=== PATIENT | female | born 2000 | race Caucasian/White ===

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

== ENCOUNTER 2022-01-28 23:10 | Emergency (ER) | payer MEDICAID, SELFPAY ==
[2022-01-28 23:12] VITALS: BP 124/85; PULSE 76; RESP 18; TEMP 36.6; O2SAT 98; BMI 32.3
--- NOTE | 2022-01-28 23:43 | EX.ED.DYSGE1 ---
HPI History of Present Illness Chief Complaint: Other, Pain/Inj Narrative Narrative: Patient is a 21-year-old female who reports a history of bilateral chronic knee pain as well as low back pain. 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 She denies any recent trauma or excessive activity but states that after doing her job she noticed some increased pain to her knees and back. She denies any loss of bowel or bladder control or IV drug use. She denies any dysuria hematuria or chance for . She states that she feels like going to work has made the pain worse and secondary to this presents for evaluation [facility] Medical History no medical history Home Medications venlafaxine 150 mg capsule,extended release 24 hr 150 mg PO DAILY 06/09/21 [History Last Taken Unknown] Allergy/AdvReac Type Severity Reaction Status Date / Time No Known Allergies Allergy Verified 01/28/22 23:12 Surgical History no surgical history Social History Smoking Status: Unknown if ever smoked ROS [facility] ED Constitutional Constitutional ED: Denies chills or fever(s) ENT ENT ED: Denies sore throat Cardiovascular Cardiovascular: Denies chest pain Respiratory/Chest Respiratory/Chest: Denies cough or dyspnea Gastrointestinal Gastrointestinal: Denies abdominal pain, diarrhea, nausea or vomiting Genitourinary Genitourinary ED: Denies dysuria Musculoskeletal Musculoskeletal: Reports arthralgias and back pain; Denies myalgias Integumentary Denies rash Neurologic Neurologic: Denies headache(s), paresthesias or weakness Hematologic/Lymphatic Hematologic/Lymphatic: Denies easy bleeding or easy bruising EXAM Physical Exam Const Vital Signs: 01/28/22 23:12 01/28/22 23:18 Temperature 97.8 F Temperature Source Temporal Pulse Rate 76 Respiratory Rate 18 Respiratory Effort Normal Respiratory Pattern Normal Blood Pressure 124/85 H Blood Pressure Mean 98 Pulse Ox 98 Oxygen Delivery Method Room Air Positive well nourished and well developed General Appearance ED: well developed Eyes PERRL and EOMs intact bilaterally Neck supple Resp normal respiratory effort and clear to auscultation bilaterally Cardio regular rate and regular rhythm Extremity Extremity Narrative: No bony deformity or step-off of the thoracic or lumbar spine no midline pain on palpation. No saddle anesthesia. Negative straight leg raise. No clonus or Babinski. Patellar reflexes are plus 2 out of 4 bilaterally Bilateral lower extremities are neurovascularly intact. There are no soft tissue changes such as erythema noted no joint effusion or bony abnormality. There is mild pain on palpation over top the medial aspect of both knees with increased pain with valgus stressing. However there is no ligamentous laxity and patellar tendon is normal. Neuro oriented x3, CN's II-XII intact bilaterally and no sensory deficits noted Sensorium / Orientation: alert Psych mental status grossly normal Skin no rashes or lesions noted MDM MDM MDM Narrative Medical decision making narrative: Patient presented to the ER with stable vitals she had no risk factors for cauda equina or epidural abscess and physical exam suggest there is a grade 1 strain of the MCL bilaterally. However there are no signs to suggest septic joint or DVT and therefore do not feel there is need for imaging or laboratory studies. Patient was given a Toradol shot to help reduce pain and was advised to conduct physical therapy exercises to strengthen the surrounding muscles to help prevent further recurrences of her pain. But at this time as there is no signs of infection or bony abnormality or signs/risk factors concerning for cauda equina epidural abscess she is otherwise safe for discharge Discharge Plan Triage Chief Complaint: Other, Pain/Inj ED Provider: Reece Akers Dx/Rx/DC Orders Clinical Impression: Strain of knee, bilateral, Chronic low back pain Instructions: Relieving Back Pain, Self-Care for Strains and Sprains Prescriptions: No Action venlafaxine 150 mg capsule,extended release 24hr 150 mg PO DAILY Label Comments: take 1 capsule by mouth once daily Stand Alone Forms: ED Work / School Excuse Primary Care Provider: Guero Tyler Referrals: Guero Tyler MD [Primary Care Provider] - Disposition Disposition: Home, Self Care
[2022-01-29] MEDS: Ketorolac 30 MG/ML Syringe IM (00:01)
[2022-01-29 00:21] VITALS: BP 113/71; PULSE 81; RESP 15; O2SAT 99
== END 2022-01-29 00:22 | disposition home or self-care (01) ==
PROVIDERS: Emergency Provider Emergency Medicine; PCP Family Medicine; Visit Provider Emergency Medicine
DX: S83.411A Sprain of medial collateral ligament of right knee, initial encounter (principal); S83.412A Sprain of medial collateral ligament of left knee, initial encounter; X58.XXXA Exposure to other specified factors, initial encounter; M54.50 Low back pain, unspecified; G89.29 Other chronic pain
CPT/HCPCS: 96372; 99283

== ENCOUNTER 2022-05-19 06:14 | Emergency (ER) | payer MEDICAID, SELFPAY ==
[2022-05-19 06:14] VITALS: PULSE 104; RESP 18; TEMP 35.7; O2SAT 99; BMI 32.5
[2022-05-19 06:17] VITALS: BP 109/80; PULSE 104; RESP 18; O2SAT 100
[2022-05-19 06:33] LABS: Absolute Lymphocyte Count 1.96 X10^3/uL (0.83-4.51); Basophil# 0.06 X10^3/uL; Basophil% 0.3 % (0-1); Eosinophil# 0.02 X10^3/uL; Eosinophils% 0.1 % (0-5); Hematocrit 48.1 % (37-47); Lymphocyte # 1.96 X10^3/ul (0.83-4.51); Lymphocyte % 10.8 % (19-41); Mean Corp Hgb Conc 33.3 g/dL (32-36); Mean Corpuscular Hgb 28.5 pg (27.0-32.0); Mean Corpuscular Volume 85.7 fL (81-99); Mean Platelet Vol. 9.5 fl (6.2-12.0); Monocyte# 0.97 X10^3/uL; Monocyte% 5.3 % (0-10); NRBC Flagged by Analyzer 0 % (0-5); Neutrophil % 82.7 % (47-70); Platelet Count 412 K/mm3 (150-450); RBC Distribution Width CV 12.6 % (11.6-14.6); RBC Distribution Width SD 38.8 fl (35.1-43.9); Red Blood Count 5.61 M/mm3 (4.2-5.4); White Blood Count 18.2 K/mm3 (4.4-11.0)
[2022-05-19] MEDS: Dicyclomine 20 MG/2 ML Vial IM (06:39)
[2022-05-19] MEDS: 0.9% Normal Saline 1,000 ML 1000 ML IV (06:39)
[2022-05-19] MEDS: Ondansetron 4 MG/2 ML Vial IV (06:39)
[2022-05-19 06:43] LABS: Internal QC Validated? YES +Cl - CLEAR BKGD; Pregnancy, Serum, hCG Quali. NEGATIVE Negative
[2022-05-19 06:44] LABS: Red Blood Cells-Urine 0 SEEN /hpf (0-5)
--- NOTE | 2022-05-19 06:49 | EX.ED.DYSGE1 ---
HPI <Dr. Wenceslao Cline MD - Last Filed: 05/19/22 06:59> History of Present Illness Chief Complaint: Abd Pain Informant: patient and spouse/S.O. Narrative Narrative: Patient states that when she woke up this morning about 4 AM she had abdominal pain. She describes it is in the middle of her abdomen. She states she has a lot of trouble describing what the pain is like or where it is or any other details. It sounds like she was nauseated but did not vomit. She denies any bowel changes. Denies any urinary symptoms. Denies pelvic pain. No vaginal discharge or bleeding. Last menstrual period was about the second of this month and was normal timing. She does not have back or flank pain. No chest pain or trouble breathing. She denies any abdominal surgeries. She denies having pain like this before. She denies history of irritable bowel or other symptoms. She felt fine when she went to bed. She is not sure if anything makes it better or worse. She is on Effexor but this is not new or different. No other changes in diet or meds. No recent trauma or injury. She does not think she has had a fever. PFSH <Dr. Wenceslao Cline MD - Last Filed: 05/19/22 06:59> [facility] Medical History no medical history Home Medications venlafaxine 150 mg capsule,extended release 24 hr (Effexor XR) 150 mg PO DAILY 06/09/21 [History Last Taken Unknown] dicyclomine 10 mg capsule 20 mg PO TIDAC #20 CAPSULES 05/19/22 [Rx Last Taken Unknown] ondansetron 4 mg disintegrating tablet 4 mg PO Q8H PRN PRN Nausea #10 tabs 05/19/22 [Rx Last Taken Unknown] Allergy/AdvReac Type Severity Reaction Status Date / Time No Known Allergies Allergy Verified 01/28/22 23:12 Social History Smoking Status: Unknown if ever smoked ROS <Dr. Wenceslao Cline MD - Last Filed: 05/19/22 06:59> ROS ED Constitutional Constitutional ED: Denies chills, fever(s) or subjective ENT ENT ED: Denies rhinorrhea or sore throat Cardiovascular Cardiovascular: Denies chest pain or palpitations Respiratory/Chest Respiratory/Chest: Denies cough or dyspnea Gastrointestinal Gastrointestinal: Reports abdominal pain and nausea; Denies constipation, diarrhea, melena or vomiting Genitourinary Genitourinary ED: Denies dysuria, hematuria or urinary frequency Musculoskeletal Musculoskeletal: Denies back pain Integumentary Denies rash Neurologic Neurologic: Denies headache(s) Endocrine Endocrinology: Denies polydipsia or polyuria Allergic/Immunologic Allergic/Immunologic ED: Denies urticaria EXAM <Dr. Wenceslao Cline MD - Last Filed: 05/19/22 06:59> Physical Exam Narrative Exam Narrative: Patient is laying on bed. She walked back from the front. She was hunched over a bit. She looks like she has mild discomfort but it is not in any significant pain. She carries on normal conversation. HEENT shows minimally dry mucous membranes. Eyes show no icterus. Neck shows no JVD. Lungs are clear and no pain or exacerbation of symptoms with deep breath. Heart is regular but does have a rate of about 95-100. No murmur gallop or rub. Peripheral pulses are equal. Abdomen is soft. She is not sure if it is tender in 1 spot or another. She states it is just sore. I do not get any rebound or guarding. I feel no mass. I do not sense any hernia. It seems as though she has most of the tenderness in the periumbilical area. No bump tenderness with moving the bed. : No CVA or suprapubic tenderness noted. Extremities show no tenderness. Skin no diaphoresis and she does not feel febrile. Patient is alert oriented and appropriate. Const Vital Signs: 05/19/22 06:14 05/19/22 06:17 Temperature 96.3 F L Temperature Source Temporal Pulse Rate 104 H 104 H Respiratory Rate 18 18 Blood Pressure 109/80 Blood Pressure Mean 89 Pulse Ox 99 100 Oxygen Delivery Method Room Air Room Air <Dr. Ni Ureña MD - Last Filed: 05/19/22 07:40> Physical Exam Const Vital Signs: 05/19/22 06:14 05/19/22 06:17 Temperature 96.3 F L Temperature Source Temporal Pulse Rate 104 H 104 H Respiratory Rate 18 18 Blood Pressure 109/80 Blood Pressure Mean 89 Pulse Ox 99 100 Oxygen Delivery Method Room Air Room Air MDM <Dr. Wenceslao Cline MD - Last Filed: 05/19/22 06:59> MDM MDM Narrative Medical decision making narrative: Patient CBC came back with elevated white count 18.2. is negative. I went back and talk to the patient again. She does feel a little bit better with Bentyl and Zofran. But she still has mid abdominal pain. She has mild tenderness but no rebound or guarding. She reaffirms that she cannot think of anything that cause this. She does not have abdominal pain normally. This is uncommon for her. With this uncommon pain and still having symptoms and 18,000 count I told her we will look further doing a CT scan. This is pending at this time. Patient is turned over to oncoming physician pending results. Lab Data Labs: Laboratory Results - last 24 hr 05/19/22 05/19/22 05/19/22 06:20 06:20 06:20 WBC 18.2 H RBC 5.61 H Hgb 16.0 H Hct 48.1 H MCV 85.7 MCH 28.5 MCHC 33.3 RDW Std Deviation 38.8 RDW Coeff of Rae 12.6 Plt Count 412 MPV 9.5 Immature Gran % (Auto) 0.800 Neut % (Auto) 82.7 H Lymph % (Auto) 10.8 L [place] % (Auto) 5.3 Eos % (Auto) 0.1 Baso % (Auto) 0.3 Absolute Neuts (auto) 15.0 H Absolute Lymphs (auto) 1.96 Nucleated RBC % 0 Sodium 141 Potassium 3.6 Chloride 109 H Carbon Dioxide 26.0 Anion Gap 6 BUN 5 L Creatinine 0.96 Estim Creat Clear Calc 71.13 Est GFR (MDRD) Af Amer 96 Est GFR (MDRD) Non-Af 79 BUN/Creatinine Ratio 5.2 L Glucose 141 H Calcium 9.4 Total Bilirubin 0.40 AST 18 ALT 15 Alkaline Phosphatase 71 Total Protein 8.0 Albumin 4.0 Globulin 4.0 Albumin/Globulin Ratio 1.0 Lipase 90 Serum , Qual NEGATIVE Urine Color Urine Clarity Urine pH Ur Specific [place] Urine Protein Urine Glucose (UA) Urine Ketones Urine Occult Blood Urine Nitrite Urine Bilirubin Urine Urobilinogen Ur Leukocyte Esterase Urine RBC Urine WBC Ur Squamous Epith Cells Urine Bacteria Urine Mucus 05/19/22 06:40 WBC RBC Hgb Hct MCV MCH MCHC RDW Std Deviation RDW Coeff of Rae Plt Count MPV Immature Gran % (Auto) Neut % (Auto) Lymph % (Auto) [place] % (Auto) Eos % (Auto) Baso % (Auto) Absolute Neuts (auto) Absolute Lymphs (auto) Nucleated RBC % Sodium Potassium Chloride Carbon Dioxide Anion Gap BUN Creatinine Estim Creat Clear Calc Est GFR (MDRD) Af Amer Est GFR (MDRD) Non-Af BUN/Creatinine Ratio Glucose Calcium Total Bilirubin AST ALT Alkaline Phosphatase Total Protein Albumin Globulin Albumin/Globulin Ratio Lipase Serum , Qual Urine Color Yellow Urine Clarity Clear Urine pH 5.0 Ur Specific [place] 1.030 Urine Protein 30 H Urine Glucose (UA) Normal Urine Ketones 5 H Urine Occult Blood Negative Urine Nitrite Negative Urine Bilirubin Negative Urine Urobilinogen 1 H Ur Leukocyte Esterase 25 H Urine RBC 0 SEEN Urine WBC 0-5 SEEN Ur Squamous Epith Cells 5-10 SEEN Urine Bacteria 2+ Urine Mucus 3+ Radiography Diagnostic Testing: Clinical Impression(s) from Imaging Studies Abdomen/Pelvis CT 05/19/22 06:56 IMPRESSION: Recently ruptured small right ovarian cyst with small amount of free pelvic fluid. Electronically Signed: Guero Khanna MD at 7:30 EST , <Dr. Ni Ureña MD - Last Filed: 05/19/22 07:40> [facility] Lab Data Labs: Laboratory Results - last 24 hr 05/19/22 05/19/22 05/19/22 06:20 06:20 06:20 WBC 18.2 H RBC 5.61 H Hgb 16.0 H Hct 48.1 H MCV 85.7 MCH 28.5 MCHC 33.3 RDW Std Deviation 38.8 RDW Coeff of Rae 12.6 Plt Count 412 MPV 9.5 Immature Gran % (Auto) 0.800 Neut % (Auto) 82.7 H Lymph % (Auto) 10.8 L [place] % (Auto) 5.3 Eos % (Auto) 0.1 Baso % (Auto) 0.3 Absolute Neuts (auto) 15.0 H Absolute Lymphs (auto) 1.96 Nucleated RBC % 0 Sodium 141 Potassium 3.6 Chloride 109 H Carbon Dioxide 26.0 Anion Gap 6 BUN 5 L Creatinine 0.96 Estim Creat Clear Calc 71.13 Est GFR (MDRD) Af Amer 96 Est GFR (MDRD) Non-Af 79 BUN/Creatinine Ratio 5.2 L Glucose 141 H Calcium 9.4 Total Bilirubin 0.40 AST 18 ALT 15 Alkaline Phosphatase 71 Total Protein 8.0 Albumin 4.0 Globulin 4.0 Albumin/Globulin Ratio 1.0 Lipase 90 Serum , Qual NEGATIVE Urine Color Urine Clarity Urine pH Ur Specific [place] Urine Protein Urine Glucose (UA) Urine Ketones Urine Occult Blood Urine Nitrite Urine Bilirubin Urine Urobilinogen Ur Leukocyte Esterase Urine RBC Urine WBC Ur Squamous Epith Cells Urine Bacteria Urine Mucus 05/19/22 06:40 WBC RBC Hgb Hct MCV MCH MCHC RDW Std Deviation RDW Coeff of Rae Plt Count MPV Immature Gran % (Auto) Neut % (Auto) Lymph % (Auto) [place] % (Auto) Eos % (Auto) Baso % (Auto) Absolute Neuts (auto) Absolute Lymphs (auto) Nucleated RBC % Sodium Potassium Chloride Carbon Dioxide Anion Gap BUN Creatinine Estim Creat Clear Calc Est GFR (MDRD) Af Amer Est GFR (MDRD) Non-Af BUN/Creatinine Ratio Glucose Calcium Total Bilirubin AST ALT Alkaline Phosphatase Total Protein Albumin Globulin Albumin/Globulin Ratio Lipase Serum , Qual Urine Color Yellow Urine Clarity Clear Urine pH 5.0 Ur Specific [place] 1.030 Urine Protein 30 H Urine Glucose (UA) Normal Urine Ketones 5 H Urine Occult Blood Negative Urine Nitrite Negative Urine Bilirubin Negative Urine Urobilinogen 1 H Ur Leukocyte Esterase 25 H Urine RBC 0 SEEN Urine WBC 0-5 SEEN Ur Squamous Epith Cells 5-10 SEEN Urine Bacteria 2+ Urine Mucus 3+ Radiography Diagnostic Testing: Clinical Impression(s) from Imaging Studies Abdomen/Pelvis CT 05/19/22 06:56 IMPRESSION: Recently ruptured small right ovarian cyst with small amount of free pelvic fluid. Electronically Signed: Guero Khanna MD at 7:30 EST , Treatment and Re-Evaluation Narrative: Patient was signed out to me pending CT scan. CT scan returns with evidence of recently ruptured ovarian cyst and small amount of free fluid. There is no evidence of appendicitis or cholecystitis. No other acute abnormalities noted. On repeat evaluation test results are discussed with patient and significant other at bedside. She was advised at this time there are no other acute findings noted, however to continue to monitor her symptoms and return if she is not improving. She voices understanding and agreement. Prescription for Bentyl and Zofran will be sent to the pharmacy for her. Discharge Plan Triage Chief Complaint: Abd Pain ED Provider: Wenceslao Cline Dx/Rx/DC Orders Clinical Impression: Abdominal pain, Nausea, Leukocytosis, Ovarian cyst rupture Instructions: ED Ovarian Cyst Prescriptions: New ondansetron 4 mg tablet,disintegrating 4 mg PO Q8H PRN PRN (Reason: Nausea) Qty: 10 0RF dicyclomine 10 mg capsule 20 mg PO TIDAC Qty: 20 0RF No Action venlafaxine [Effexor XR] 150 mg capsule,extended release 24hr 150 mg PO DAILY Label Comments: take 1 capsule by mouth once daily Primary Care Provider: Guero Tyler Referrals: Guero Tyler MD [Primary Care Provider] - 1-2 Weeks Disposition Disposition: Home, Self Care
--- NOTE | 2022-05-19 06:56 | CT_ITS ---
INDICATION: low ab pain x today EXAMINATION: CT Abdomen And Pelvis W/ Contrast Injection TECHNIQUE: Helically acquired images were obtained of the abdomen and pelvis following IV contrast. 2-D reconstructions reviewed. A radiation dose optimization technique was used for this scan. IV Contrast dosage and agent: 75 mL Isovue-370 Oral contrast: None. COMPARISON: None. FINDINGS: LOWER CHEST: No acute findings within the imaged lung bases. Heart size within normal limits. LIVER: Homogeneous. No concerning lesion. GALLBLADDER AND BILIARY TREE: No calcified gallstones identified. No gallbladder wall edema demonstrated. No significant biliary ductal dilation. PANCREAS: No discrete mass or peripancreatic edema. SPLEEN: Normal size without focal cystic or solid mass. ADRENAL GLANDS: Unremarkable. KIDNEYS AND URETERS: Normal renal size and position. No perinephric edema or hydronephrosis. No concerning lesion. Subcentimeter simple appearing left renal cyst requiring no additional follow-up. PERITONEUM: Small amount of free pelvic fluid. No free air. RETROPERITONEUM: No retroperitoneal mass or pathologic fluid collection. BOWEL: No evidence of acute appendicitis. No abnormal stomach or bowel distension. No focal inflammatory change. LYMPH NODES: No enlarged mesenteric or retroperitoneal lymph nodes. VESSELS: No acute findings. No abdominal aortic aneurysm. URINARY BLADDER: Unremarkable as visualized. REPRODUCTIVE ORGANS: Free fluid surrounding rim-enhancing, partially collapsed 2.3 cm right adnexal cyst. ABDOMINAL WALL: No acute findings or significant hernia defect. BONES: Intact with no suspicious osseous lesion. CT/Abdomen/Pelvis W IV Cont ONLY IMPRESSION: Recently ruptured small right ovarian cyst with small amount of free pelvic fluid. Electronically Signed: Guero Khanna MD at 7:30 EST ,
[2022-05-19 06:58] LABS: AST(SGOT) 18 U/L (15-37); Alanine Aminotransfer ALT/SGPT 15 U/L (13-56); Alkaline Phosphatase 71 U/L (45-117); Anion Gap 6 (5-15); BUN 5 mg/dL (7-18); BUN/Creat Ratio 5.2 RATIO (10-20); Calcium,Total 9.4 mg/dL (8.5-10.1); Chloride 109 mmol/L (98-107); Creatinine, Serum 0.96 mg/dL (0.55-1.02); EST Glomerular Filtration Rate 79 mL/min (>60); Est Glom Filt Rate - Afr Amer 96 mL/min (>60); Estimated Creatinine Clearance 71.13 ml/min; Glucose 141 mg/dL (74-106); Lipase 90 U/L (73-393); Potassium 3.6 mmol/L (3.5-5.1); Sodium Level 141 mmol/L (136-145)
[2022-05-19 07:05] LABS: Color, Urine Yellow (Yellow); Glucose, Dipstick Normal (Normal); Ketone-Dipstick 5 mg/dl (Negative); Leukocyte Esterase-Dipstick 25 /ul (Negative); Nitrite-Dipstick Negative (Negative); Occult Blood-Urine Negative /ul (Negative); Protein-Dipstick 30 mg/dl (Negative); Urine Bilirubin Dipstick Negative (Negative); Urine Clarity Clear (Clear); Urine Urobilinogen 1 mg/dl (Normal)
[2022-05-19 07:12] LABS: Bacteria 2+ /hpf (None Seen); Mucous, Urine 3+ /hpf (<or=2+); Squamous Epithelial Cells - UA 5-10 SEEN /hpf (5-10); White Blood Cells 0-5 SEEN /hpf (0-5)
[2022-05-19 07:53] VITALS: RESP 16
== END 2022-05-19 07:54 | disposition home or self-care (01) ==
PROVIDERS: Emergency Provider Emergency Medicine; PCP Family Medicine; Visit Provider Emergency Medicine
DX: N83.201 Unspecified ovarian cyst, right side (principal); D72.829 Elevated white blood cell count, unspecified
CPT/HCPCS: 74177; 80053; 81001; 83690; 84703; 85025; 96361; 96372; 96374; 99283; J7030; Q9967; A4216; J2405

== ENCOUNTER 2023-01-12 21:22 | Emergency (ER) | payer MEDICAID, SELFPAY ==
[2023-01-12 21:23] VITALS: BP 122/96; PULSE 80; RESP 15; TEMP 36.6; O2SAT 99; BMI 35.3
[2023-01-12] MEDS: 0.9% Normal Saline (1000mL) 1,000 ML 999 ML IV (23:21)
[2023-01-12 23:22] VITALS: BP 117/77; PULSE 80; RESP 14; O2SAT 100
[2023-01-12 23:31] LABS: Absolute Lymphocyte Count 3.05 X10^3/uL (0.83-4.51); Absolute Neutrophil Count 6.9 X10^3/uL (2.0-7.7); Basophil# 0.05 X10^3/uL; Basophil% 0.5 % (0-1); Eosinophil# 0.09 X10^3/uL; Eosinophils% 0.8 % (0-5); Hematocrit 43.6 % (37-47); Hemoglobin 13.8 g/dL (12.0-15.0); Lymphocyte # 3.05 X10^3/ul (0.83-4.51); Lymphocyte % 27.8 % (19-41); Mean Corp Hgb Conc 31.7 g/dL (32-36); Mean Corpuscular Hgb 27.5 pg (27.0-32.0); Mean Platelet Vol. 9.4 fl (6.2-12.0); Monocyte# 0.87 X10^3/uL; Monocyte% 7.9 % (0-10); NRBC Flagged by Analyzer 0 % (0-5); Neutrophil # 6.85 X10^3/uL (2.7-7.7); Neutrophil % 62.5 % (47-70); Platelet Count 331 K/mm3 (150-450); RBC Distribution Width CV 12.3 % (11.6-14.6); RBC Distribution Width SD 39.2 fl (35.1-43.9); Red Blood Count 5.01 M/mm3 (4.2-5.4)
[2023-01-12 23:45] LABS: Internal QC Validated? YES +Cl - CLEAR BKGD; Pregnancy, Serum, hCG Quali. NEGATIVE Negative
[2023-01-12 23:50] LABS: Anion Gap 6 (5-15); BUN 12 mg/dL (7-18); BUN/Creat Ratio 13.7 RATIO (10-20); Calcium,Total 8.9 mg/dL (8.5-10.1); Chloride 106 mmol/L (98-107); Creatinine, Serum 0.88 mg/dL (0.55-1.02); EST Glomerular Filtration Rate 87 mL/min (>60); Est Glom Filt Rate - Afr Amer 106 mL/min (>60); Estimated Creatinine Clearance 76.95 ml/min; Glucose 93 mg/dL (74-106); Magnesium 2.3 mg/dL (1.6-2.6); Potassium 3.9 mmol/L (3.5-5.1); Sodium Level 138 mmol/L (136-145)
--- NOTE | 2023-01-13 00:07 | EX.ED.DYSGE1 ---
HPI History of Present Illness Chief Complaint: Dizziness Informant: patient and friend Narrative Narrative: Patient is a 22-year-old female with past medical history of depression. She states she was with friends this evening walking through a store when she began to feel lightheaded like she was going to pass out. She denies any skipped beats or abnormal heart rhythm. She denies any nausea vomiting diarrhea or dysuria. She states there is no family history of a abnormal cardiac rhythm. She states she feels normal at this time but with the events occurring presents for evaluation [facility] Medical History no medical history Home Medications venlafaxine 150 mg capsule,extended release 24 hr (Effexor XR) 150 mg PO DAILY 06/09/21 [History Last Taken Unknown] dicyclomine 10 mg capsule 20 mg (2 x 10 mg) PO TIDAC #20 CAPSULES 05/19/22 [Rx Last Taken Unknown] ondansetron 4 mg disintegrating tablet 4 mg PO Q8H PRN PRN Nausea #10 tabs 05/19/22 [Rx Last Taken Unknown] Allergy/AdvReac Type Severity Reaction Status Date / Time No Known Allergies Allergy Verified 01/12/23 22:14 Social History Smoking Status: Unknown if ever smoked ROS [facility] ED Constitutional Constitutional ED: Denies chills or fever(s) Eyes Eyes: Denies change in vision ENT ENT ED: Denies sore throat Cardiovascular Cardiovascular: Reports palpitations and racing heartbeat; Denies chest pain Respiratory/Chest Respiratory/Chest: Denies cough or dyspnea Gastrointestinal Gastrointestinal: Denies abdominal pain, diarrhea, nausea or vomiting Genitourinary Genitourinary ED: Denies dysuria Musculoskeletal Musculoskeletal: Denies myalgias Integumentary Denies rash Neurologic Neurologic: Denies headache(s) Hematologic/Lymphatic Hematologic/Lymphatic: Denies easy bleeding or easy bruising EXAM Physical Exam Const Vital Signs: 01/12/23 21:23 01/12/23 22:15 01/12/23 23:22 Temperature 97.9 F Temperature Source Temporal Pulse Rate 80 80 Respiratory Rate 15 14 Respiratory Effort Normal Respiratory Pattern Normal Blood Pressure 122/96 H 117/77 Blood Pressure Mean 104 90 Pulse Ox 99 100 Oxygen Delivery Method Room Air Room Air Positive well nourished and well developed General Appearance ED: well developed; Negative for pallor HEENT Reports moist mucous membranes HEENT Narrative: No sign of infection noted in the posterior pharynx Eyes PERRL and EOMs intact bilaterally General Eye ED: Negative for pale conjunctiva or scleral icterus Neck supple Neck Narrative: No nuchal rigidity or meningeal signs present Resp normal respiratory effort and clear to auscultation bilaterally Cardio regular rate and regular rhythm Rate: other Other Details: Heart is regular rate and rhythm without murmurs rubs or gallop Radial and carotid pulses are equal and symmetric GI normal to inspection, nondistended, normoactive bowel sounds, non-tender, non-distended and no masses Auscultation: normoactive bowel sounds Palpation: soft Extremity normal to inspection Extremity Narrative: No asymmetric edema no pitting edema negative Homans' sign bilaterally Neuro oriented x3, CN's II-XII intact bilaterally and no sensory deficits noted Neuro Narrative: Cranial nerves II through XII are grossly intact there are no focal neurologic deficits. No pronator drift no dysmetria no truncal ataxia. NIH stroke scale score of 0. Sensorium / Orientation: alert Motor Exam: strength 5/5 throughout Psych mental status grossly normal Skin no rashes or lesions noted General Skin Exam: Negative for pallor MDM MDM MDM Narrative Medical decision making narrative: Patient presented to ER with stable vitals and reported near syncopal event. Differential diagnosis is for abnormal cardiac rhythm versus anemia versus orthostatic hypotension versus dehydration versus POTS. Secondary to this basic blood work was obtained which reveals no clinically significant finding. Patient was kept on the quality assurance monitor final and hydrated and vitals remained stable and she had no further bouts of dizziness. As her neuro exam has been persistently normal I do not feel there is a need for a CT scan as concern for posterior circulation stroke is extremely low based on her age and presentation. Therefore this time with overall negative work-up and improvement of symptoms and stable vitals patient is otherwise safe for discharge History & Record Review Discussion w/independent historian: Patient and Friend Lab Data Attestation: I reviewed the patient's lab results. Labs: Laboratory Results - last 24 hr 01/12/23 23:25 WBC 11.0 RBC 5.01 Hgb 13.8 Hct 43.6 MCV 87.0 MCH 27.5 MCHC 31.7 L RDW Std Deviation 39.2 RDW Coeff of Rae 12.3 Plt Count 331 MPV 9.4 Immature Gran % (Auto) 0.500 Neut % (Auto) 62.5 Lymph % (Auto) 27.8 [place] % (Auto) 7.9 Eos % (Auto) 0.8 Baso % (Auto) 0.5 Absolute Neuts (auto) 6.9 Absolute Lymphs (auto) 3.05 Nucleated RBC % 0 Sodium 138 Potassium 3.9 Chloride 106 Carbon Dioxide 26.0 Anion Gap 6 BUN 12 Creatinine 0.88 Estim Creat Clear Calc 76.95 Est GFR (MDRD) Af Amer 106 Est GFR (MDRD) Non-Af 87 BUN/Creatinine Ratio 13.7 Glucose 93 Calcium 8.9 Magnesium 2.3 Serum , Qual NEGATIVE Discharge Plan Triage Chief Complaint: Dizziness ED Provider: Reece Akers Dx/Rx/DC Orders Clinical Impression: Near syncope Instructions: Dizziness Fainting Causes Prescriptions: No Action venlafaxine [Effexor XR] 150 mg capsule,extended release 24hr 150 mg PO DAILY Patient Comments: take 1 capsule by mouth once daily ondansetron 4 mg tablet,disintegrating 4 mg PO Q8H PRN PRN (Reason: Nausea) Qty: 10 0RF dicyclomine 10 mg capsule 20 mg PO TIDAC Qty: 20 0RF Primary Care Provider: Care Physician,No Primary Referrals: Tamika Recinos DO [Med Staff - [employer]] - Care Physician,No Primary [Primary Care Provider] - Activity Restrictions/Additional Instructions: Your work-up today revealed no clinically significant findings. Follow-up with your family doctor to discuss further testing if symptoms persist and return to the ER should you have any further concerns. Disposition Disposition: Home, Self Care Discharge Date/Time: 01/13/23 00:16
== END 2023-01-13 00:16 | disposition home or self-care (01) ==
PROVIDERS: Emergency Provider Emergency Medicine; Visit Provider Emergency Medicine
DX: R55 Syncope and collapse (principal)
CPT/HCPCS: 80048; 83735; 84703; 85025; 93005; 96360; 99283; J7030; A4216

== ENCOUNTER 2023-06-15 15:16 | Emergency (ER) | payer MEDICAID, SELFPAY ==
[2023-06-15 15:17] VITALS: BP 146/93; PULSE 128; RESP 16; TEMP 36.6; O2SAT 99; BMI 36.5
--- NOTE | 2023-06-15 15:28 | CT_ITS ---
EXAM: CT ABDOMEN AND PELVIS WITH INTRAVENOUS CONTRAST CLINICAL INDICATION: bilateral lower abd pain primarily TECHNIQUE: Helically acquired images were obtained of the abdomen and pelvis with intravenous contrast. This CT exam was performed using one or more of the following dose reduction techniques: automated exposure control, adjustment of the mA and/or kV according to patient size, and/or use of iterative reconstruction technique. CONTRAST: 100mL Isovue 300 COMPARISON: CT Abdomen Pelvis dated 05/19/2022 FINDINGS: LOWER THORAX: Normal. Lung bases are clear. No cardiomegaly. No pericardial effusion. ABDOMEN: LIVER: Mild hepatic steatosis. PANCREAS: Normal. No focal cystic or solid mass. SPLEEN: Normal. Normal size without focal cystic or solid mass. ADRENALS: Normal. No nodules. KIDNEYS AND URETERS: Normal. Normal renal size and position. No hydronephrosis. STOMACH AND BOWEL: Normal. No bowel distention. No focal inflammatory change. PELVIS: APPENDIX: Appendix is visualized and normal in appearance. BLADDER: Normal. REPRODUCTIVE: Unremarkable as visualized. No mass. ABDOMEN and PELVIS: INTRAPERITONEAL SPACE: Normal. No ascites or other fluid collection. No free air. BONES/JOINTS: No suspicious lytic or blastic abnormality. SOFT TISSUES: Normal. No discrete abdominal or pelvic wall hernia. VASCULATURE: Normal. Abdominal aorta is non-dilated. LYMPH NODES: Reactive mesenteric lymph nodes are noted. CT/Abdomen/Pelvis W IV Cont ONLY IMPRESSION: 1. Reactive mesenteric lymph nodes. 2. Mild hepatic steatosis. Electronically Signed: Galen Liao MD at 16:42 EST ,
--- NOTE | 2023-06-15 15:30 | ED.VIS.GI ---
HPI HPI - GI History of Present Illness Chief Complaint: Abd Pain Detail of Chief Complaint: Lower abdominal pain and pelvic pain beginning today. Informant: patient Abdominal Pain/Flank Pain Onset: Today and Hours Context: Gradual Onset Timing: Continuous Quality: Aching and Cramping Location: RLQ, LLQ and - (Pelvic pain) Current Severity: Mild Maximum Severity: Moderate Worsened by: Nothing Nausea/Vomiting/Emesis GI Symptom: Positive for Nausea Onset: Today Severity: Mild Diarrhea/Melena/Hematochezia GI Symptom: Negative for Diarrhea, Melena or Hematochezia Associated Symptoms Associated Symptoms: Negative for Dysuria, Frequency, Hematuria or Urgency Narrative Narrative: 22-year-old female only past medical history is about a year ago had similar episode with a ruptured right ovarian cyst. No prior abdominal or pelvic surgery. She is never been before. She does have irregular at times heavy menstrual periods. Patient states this morning around 7 AM started having lower abdominal cramping that has now come up in her abdomen. Nausea. No fever. No dysuria. No diarrhea or constipation. No melena. Year ago she had similar episode that was not as severe as today and was secondary to a ruptured ovarian cyst. Prior similar symptoms: Yes Recent Illness/Hospitalization: No PFSH PFSH Home Medications venlafaxine 150 mg capsule,extended release 24 hr (Effexor XR) 150 mg PO DAILY 06/09/21 [History Last Taken Unknown] dicyclomine 10 mg capsule 20 mg (2 x 10 mg) PO TIDAC #20 CAPSULES 05/19/22 [Rx Last Taken Unknown] ondansetron 4 mg disintegrating tablet 4 mg PO Q8H PRN PRN Nausea #10 tabs 05/19/22 [Rx Last Taken Unknown] lamotrigine 200 mg tablet 200 mg PO DAILY 06/15/23 [History Last Taken Unknown] Allergy/AdvReac Type Severity Reaction Status Date / Time No Known Allergies Allergy Verified 06/15/23 15:18 Surgical History no surgical history no surgical history Social History Smoking Status: Never smoker ROS ROS ED ROS Narrative Lower abdominal pain. Nausea. Currently on her menstrual period. Review of Systems ROS Unobtainable: Denies due to encephalopathy Constitutional Constitutional ED: Denies chills or fever(s) ENT ENT ED: Denies ear pain Cardiovascular Cardiovascular: Denies chest pain Respiratory/Chest Respiratory/Chest: Denies cough or dyspnea Gastrointestinal Gastrointestinal: Reports abdominal pain and nausea; Denies constipation, diarrhea, melena or vomiting Genitourinary Genitourinary ED: Denies dysuria or hematuria Musculoskeletal Musculoskeletal: Denies arthralgias, back pain, myalgias or neck pain Integumentary Denies abscess, Abrasions or rash Neurologic Neurologic: Denies headache(s), paresthesias or weakness Psychiatric Psychiatric: Denies anxiety or depression Endocrine Endocrinology: Denies polydipsia Hematologic/Lymphatic Hematologic/Lymphatic: Denies easy bleeding, easy bruising or lymphadenopathy Allergic/Immunologic Allergic/Immunologic ED: Denies mouth swelling, tongue swelling or urticaria EXAM Physical Exam Narrative Exam Narrative: 22-year-old female no acute distress vital signs stable she is tachycardic. H EENT exam unremarkable. Moist mucous membranes. Lungs clear to auscultation. Heart tachycardic rate about 110 no murmur. Abdomen diffusely tender no peritoneal signs mainly suprapubic and both lower quadrants. Not specifically McBurney's point. No Harrison sign. No hernia or mass. No distention or obstruction. No signs of trauma. Back nontender. Moving all 4 extremities. Awake and alert. She is sitting upright in bed. Const Vital Signs: 06/15/23 15:17 Temperature 97.8 F Temperature Source Temporal Pulse Rate 128 H Respiratory Rate 16 Blood Pressure 146/93 H Blood Pressure Mean 110 Pulse Ox 99 Oxygen Delivery Method Room Air Positive well nourished and well developed; Negative for cachectic, contractures or unkempt General Appearance ED: well developed; Negative for unkempt, cachectic, contractures or pallor Nutritional Appearance: Negative for cachectic HEENT Reports moist mucous membranes normocephalic and atraumatic; Negative for trauma or tenderness Eyes PERRL and EOMs intact bilaterally General Eye ED: Negative for pale conjunctiva or scleral icterus Neck no lymphadenopathy, supple and no JVD General: Negative for tenderness Carotids: Negative for other Lymph Lymphatic: Negative for other Resp normal respiratory effort and clear to auscultation bilaterally Effort and Inspection: Negative for respiratory distress Auscultation: Negative for rales, rhonchi or wheezes Cardio regular rhythm, S1 normal heart sound, S2 normal heart sound and no murmurs; Negative for regular rate Rate: tachycardic Rhythm: Negative for abnormal rhythm GI non-distended and no masses; Negative for non-tender Inspection: Negative for abdominal distention Auscultation: normoactive bowel sounds Palpation: soft and tender; Negative for guarding or rebound tenderness present Back/Spine no CVA tenderness General Back: Negative for CVA tenderness Cervical Spine: Negative for cervical spine tenderness Thoracic Spine / Upper Back: Negative for thoracic spinal tenderness Lumbar Spine / Lower Back: Negative for lumbar spinal tenderness Coccyx: Negative for other Extremity full ROM General Extremety ED: Negative for edema or tenderness General Extremity: Negative for edema Neuro CN's II-XII intact bilaterally and moves all extremities Sensorium / Orientation: alert, oriented to person, oriented to place and oriented to time; Negative for orientation impaired, confused, lethargic or stuporous Motor Exam: strength 5/5 throughout; Negative for general weakness or strength abnormal Psych mental status grossly normal and thought process normal Appearance: Negative for unkempt Attitude: No agitated Mood & Affect: Negative for depressed, anxious or tearful Skin no wounds General Skin Exam: Negative for jaundice or pallor Lesions: no lesions Rashes: no rashes Trauma: Negative for abrasion Nails: Negative for discolored MDM MDM MDM Narrative Medical decision making narrative: 22-year-old female lower abdominal pelvic pain possibly secondary ruptured ovarian cyst rule out ectopic versus versus UTI. Clinically feel less likely to be appendicitis I do not think this is a viral syndrome. CAT scan labs pending. Treated with morphine for pain 6 mg and Zofran. Repeat exam patient doing well at 5:45 PM. Abdomen is benign. She and I and the other female present in room went over all of her normal test results. Including her CAT scan. This may be secondary to mesenteric adenitis versus other etiologies but there is nothing else visualized on the CAT scan. They did not see any significant cyst or pelvic fluid. She will be discharged home. She has nausea medication at home. Motrin and Tylenol for pain. Outpatient follow-up as needed. History & Record Review Additional record(s) reviewed:: Prior inpatient record, Prior outpatient record, Prior ED visit and Prior labs Lab Data Attestation: I reviewed the patient's lab results. Lab results narrative: White count 9. H&H of 15 and 46. Platelets 403. Electrolytes unremarkable gap of 5 normal BUN and creatinine. Glucose 114. Liver enzymes normal. test negative. UA shows blood but no nitrates no red or white cells. Rare bacteria. CAT scan shows mesenteric lymph nodes. Otherwise no acute abnormality as read by the radiologist. Labs: Laboratory Results - last 24 hr 06/15/23 15:33 WBC 9.3 RBC 5.50 H Hgb 15.0 Hct 46.8 MCV 85.1 MCH 27.3 MCHC 32.1 RDW Std Deviation 38.8 RDW Coeff of Rae 12.6 Plt Count 403 MPV 9.3 Immature Gran % (Auto) 0.200 Neut % (Auto) 83.6 H Lymph % (Auto) 9.4 L [place] % (Auto) 5.9 Eos % (Auto) 0.5 Baso % (Auto) 0.4 Absolute Neuts (auto) 7.7 Absolute Lymphs (auto) 0.87 Nucleated RBC % 0 Sodium 140 Potassium 3.9 Chloride 113 H Carbon Dioxide 22.0 Anion Gap 5 BUN 14 Creatinine 0.90 Estim Creat Clear Calc 100.39 Est GFR (MDRD) Af Amer 102 Est GFR (MDRD) Non-Af 85 BUN/Creatinine Ratio 15.6 Glucose 114 H Calcium 9.4 Total Bilirubin 0.90 AST 11 L ALT 21 Alkaline Phosphatase 92 Total Protein 7.6 Albumin 3.9 Globulin 3.7 Albumin/Globulin Ratio 1.1 Serum , Qual NEGATIVE Urine Color Yellow Urine Clarity Sl. Cloudy Urine pH 7.0 Ur Specific [place] 1.010 Urine Protein 100 H Urine Glucose (UA) Normal Urine Ketones 5 H Urine Occult Blood 250 H Urine Nitrite Negative Urine Bilirubin Negative Urine Urobilinogen 1 H Ur Leukocyte Esterase 25 H Urine RBC 0-5 SEEN Urine WBC 0 SEEN Ur Squamous Epith Cells 0-5 SEEN Urine Bacteria RARE Urine Mucus 0 SEEN Radiography Diagnostic Testing: Clinical Impression(s) from Imaging Studies Abdomen/Pelvis CT 06/15/23 15:28 IMPRESSION: 1. Reactive mesenteric lymph nodes. 2. Mild hepatic steatosis. Electronically Signed: Galen Liao MD at 16:42 EST , Discharge Plan Triage Chief Complaint: Abd Pain ED Provider: Allen Lopes Dx/Rx/DC Orders Clinical Impression: Abdominal pain Instructions: Abdominal Pain Prescriptions: No Action venlafaxine [Effexor XR] 150 mg capsule,extended release 24hr 150 mg PO DAILY Patient Comments: take 1 capsule by mouth once daily ondansetron 4 mg tablet,disintegrating 4 mg PO Q8H PRN PRN (Reason: Nausea) Qty: 10 0RF dicyclomine 10 mg capsule 20 mg PO TIDAC Qty: 20 0RF lamotrigine 200 mg tablet 200 mg PO DAILY Patient Comments: take 1 tablet by mouth once daily Primary Care Provider: Care Physician,No Primary Referrals: Alex Aguilar MD [Med Staff - Active Staff] - As Needed Care Physician,No Primary [Primary Care Provider] - Activity Restrictions/Additional Instructions: Zofran or your home nausea medications as needed for nausea. Motrin and Tylenol for pain. Follow-up if not improving. Disposition Disposition: Home, Self Care
[2023-06-15 15:41] LABS: Mucous, Urine 0 SEEN /hpf (<or=2+); White Blood Cells 0 SEEN /hpf (0-5)
[2023-06-15] MEDS: Ondansetron 4 MG/2 ML Vial IV (15:47)
[2023-06-15] MEDS: morphine 8 MG/ML Syringe 6 MG IV (15:48)
[2023-06-15 15:52] LABS: Absolute Lymphocyte Count 0.87 X10^3/uL (0.83-4.51); Absolute Neutrophil Count 7.7 X10^3/uL (2.0-7.7); Basophil# 0.04 X10^3/uL; Basophil% 0.4 % (0-1); Eosinophil# 0.05 X10^3/uL; Eosinophils% 0.5 % (0-5); Hematocrit 46.8 % (37-47); Lymphocyte # 0.87 X10^3/ul (0.83-4.51); Lymphocyte % 9.4 % (19-41); Mean Corp Hgb Conc 32.1 g/dL (32-36); Mean Corpuscular Hgb 27.3 pg (27.0-32.0); Mean Corpuscular Volume 85.1 fL (81-99); Mean Platelet Vol. 9.3 fl (6.2-12.0); Monocyte# 0.55 X10^3/uL; Monocyte% 5.9 % (0-10); NRBC Flagged by Analyzer 0 % (0-5); Neutrophil # 7.74 X10^3/uL (2.7-7.7); Neutrophil % 83.6 % (47-70); Platelet Count 403 K/mm3 (150-450); RBC Distribution Width CV 12.6 % (11.6-14.6); RBC Distribution Width SD 38.8 fl (35.1-43.9); White Blood Count 9.3 K/mm3 (4.4-11.0)
[2023-06-15 15:58] LABS: Internal QC Validated? YES +Cl - CLEAR BKGD; Pregnancy, Serum, hCG Quali. NEGATIVE Negative
[2023-06-15 15:59] LABS: Color, Urine Yellow (Yellow); Glucose, Dipstick Normal (Normal); Ketone-Dipstick 5 mg/dl (Negative); Leukocyte Esterase-Dipstick 25 /ul (Negative); Nitrite-Dipstick Negative (Negative); Occult Blood-Urine 250 /ul (Negative); Protein-Dipstick 100 mg/dl (Negative); Urine Bilirubin Dipstick Negative (Negative); Urine Clarity Sl. Cloudy (Clear); Urine Urobilinogen 1 mg/dl (Normal)
[2023-06-15 16:05] LABS: ALB/GLOB Ratio 1.1 RATIO (0.9-2.4); AST(SGOT) 11 U/L (15-37); Alanine Aminotransfer ALT/SGPT 21 U/L (13-56); Albumin, Serum 3.9 g/dL (3.2-5.0); Alkaline Phosphatase 92 U/L (45-117); Anion Gap 5 (5-15); BUN 14 mg/dL (7-18); BUN/Creat Ratio 15.6 RATIO (10-20); Calcium,Total 9.4 mg/dL (8.5-10.1); Chloride 113 mmol/L (98-107); EST Glomerular Filtration Rate 85 mL/min (>60); Est Glom Filt Rate - Afr Amer 102 mL/min (>60); Estimated Creatinine Clearance 100.39 ml/min; Globulin 3.7 g/dL (2.2-4.2); Glucose 114 mg/dL (74-106); Potassium 3.9 mmol/L (3.5-5.1); Protein, Total 7.6 g/dL (6.4-8.2); Sodium Level 140 mmol/L (136-145)
[2023-06-15 16:19] LABS: Squamous Epithelial Cells - UA 0-5 SEEN /hpf (5-10)
[2023-06-15 16:20] LABS: Bacteria RARE /hpf (None Seen); Red Blood Cells-Urine 0-5 SEEN /hpf (0-5)
[2023-06-15 17:58] VITALS: BP 104/71; PULSE 104; RESP 16; TEMP 36.6; O2SAT 98
--- OUTSIDE RECORDS SUMMARY | 2023-06-15 23:52 | XMS RPT_ITS | CCD ---
Author Name Unknown Address [address] [place] [address] Organization [facility] Care Team Providers Care [employer] Clerk Name Role Phone Sofie Tyler MD Primary Care Provider SUSANNA BARRIGA Referring Unavailable SOFIE TYLER Primary Care Unavailable GAEL MONIQUE Referring Unavailable SOFIE TYLER Primary Care Unavailable LUBA GALICIA Referring Unavailable SOFIE TYLER Primary Care Unavailable DR SOFIE TYLER MD Primary Care Physician KYLAH PUGA., DR. CARRIZALES Primary Care Unavail able GEM CAMEJO Attending Unavailable KYLAH PUGA., DR. CARRIZALES Primary Care Unavail MIMA Chatterjee MD Attending Unavail teodora TYLER MD., DR. CARRIZALES Primary Care Unavail MERCEDES Shah MD Attending Unavailable Sofie Tyler MD Primary Care Provider SOFIE TYLER Primary Care Unavailable SUSANNA BARRIGA Attending Unavailable SOFIE TYLER Primary Care Unavailable SUSANNA BARRIGA Referring Unavailable SUSANNA BARRIGA Attending Unavailable SOFIE TYLER Primary Care Unavailable Unavailable Primary Care Provider UnavailCHANG Manzanares Referring Unavailable CHANG TOM Attending Unavailable SOFIE TYLER Primary Care Unavailable KOURTNEY OKEEFE Attending Unavailable KOURTNEY OKEEFE Referring Unavailable SOFIE TYLER Primary Care Unavailable KOURTNEY OKEEFE Attending Unavailable SOFIE TYLER Primary Care Unavailable SUSANNA BARRIGA Referring Unavailable SOFIE TYLER Primary Care Unavailable CHANG TOM Attending Unavailable SUSANNA BARRIGA Referring Unavailable SOFIE TYLER Primary Care Unavailable KOURTNEY OKEEFE Attending Unavailable SOFIE TYLER Primary Care Unavailable WALDO KERR Attending Unavailable WALDO KERR Referring Unavailable SOFIE TYLER Primary Care Unavailable WALDO KERR Referring Unavailable SOFIE TYLER Primary Care Unavailable SOFIE TYLER Primary Care Unavailable JACQUIRIMMA LAZAR Attending Unavailable WALDO KERR Referring Unavailable SOFIE TYLER Primary Care Unavailable WALDO KERR Referring Unavailable SFOIE TYLER Primary Care Unavailable WALDO KERR Referring Unavailable Medications Current Medications Medication Drug Class(es) Dates Sig (Normalized) Sig (Original) ibuprofen 600 mg oral tablet (2 sources) Nonsteroidal Anti-inflammatory Drug Start: 08-15-2020 ibuprofen 600 mg oral tablet Dose : 600 mg = 1 tab(s), Oral, QID, PRN as needed for pain, # 40 tab(s), 0 Refill(s) Start Date: 07/14/21 Status: Ordered sulfamethoxazole 800 mg / trimethoprim 160 mg oral tablet (2 sources) Dihydrofolate Reductase Inhibitor Antibacterial, Sulfonamide Antimicrobial Start: 04-01-2022 End: 04-08-2022 take 1 tablet by mouth twice daily Bactrim DS 800 mg-160 mg oral tablet Dose = 1 tab(s), Oral, BID, X 7 day(s), # 14 tab(s), 0 Refill(s), 77.3 Start Date: 04/01/22 Stop Date: 04/08/22 Status: Ordered Completed/Discontinued Medications Medication Drug Class(es) Dates Sig (Normalized) Sig (Original) cholecalciferol 1.25 mg oral capsule (13 sources) Vitamin D Start: 04-08-2021 End: 03-24-2022 take 1 capsule by mouth every week cholecalciferol, Vitamin D3, (VITAMIN D3) 1,250 mcg (50,000 unit) cap capsule Indications: Vitamin D deficiency Take 1 capsule by mouth one time a week for 8 doses. 8 capsule 0 04/08/2021 03/24/2022 Discontinued Problems Active Problems Problem Classification Problem Date Documented Da te Episodic/Chronic Abdominal pain (3 sources) Pain in female pelvis; Translations: [Pelvic and perineal pain] Onset: 06-02-2023 05-20-2023 Episodic Anxiety disorders (20 sources) Mixed anxiety and depressive disorder; Translations: [Other specified anxiety disorders] Onset: 12-05-2020 12-05-2020 Chronic Fluid and electrolyte disorders (1 source) Hypercapnia; Translations: [Acidosis] Episodic Joint disorders and dislocations; trauma-related (1 source) Patellofemoral syndrome of bilateral knees; Translations: [Patellofemoral disorders, right knee] Chronic Menstrual disorders (10 sources) Irregular periods; Translations: [Irregular menstruation, unspecified] Onset: 06-02-2023 Chronic Mood disorders (2 sources) Unspecified mood [affective] disorder; Translations: [Unspecified mood (affective) disorder (HCC)] Onset: 08-17-2022 Chronic Mood disorders (1 source) Disturbance in mood; Translations: [Emotional lability] Episodic Nutritional deficiencies (1 source) Vitamin D deficiency, unspecified; Translations: [Vitamin D deficiency] Onset: 06-27-2021 Chronic Other bone disease and musculoskeletal deformities (1 source) Somatic dysfunction of lumbar region; Translations: [Segmental and somatic dysfunction of lumbar region] Episodic Other nervous system disorders (2 sources) Other chronic pain; Translations: [Chronic midline low back pain without sciatica] Onset: 06-27-2021 Chronic Other nervous system disorders (13 sources) Sleep-wake schedule disorder, delayed phase type; Translations: [Circadian rhythm sleep disorder, delayed sleep phase type] Onset: 12-10-2022 Chronic Other nervous system disorders (1 source) Disruptions of 24 hour sleep-wake cycle; Translations: [Circadian rhythm sleep disorder, unspecified type] 12-10-2022 Chronic Other non-traumatic joint disorders (1 source) Pain in right knee; Translations: [Pain in both knees, unspecified chronicity] Onset: 02-20-2022 Episodic Other non-traumatic joint disorders (2 sources) Pain in left knee; Translations: [Pain in both knees, unspecified chronicity] Onset: 06-27-2021 Episodic Other nutritional; endocrine; and metabolic disorders (1 source) Amino acid deficiency; 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, unspecified] Chronic Other nutritional; endocrine; and metabolic disorders (20 sources) Obese class I; Translations: [Obesity, unspecified] Onset: 12-18-2021 12-18-2021 Chronic Other screening for suspected conditions (not mental disorders or infectious disease) (4 sources) Patient encounter status; Translations: [Encounter for screening for diabetes mellitus] Episodic Other skin disorders (1 source) Acne; Translations: [Other acne] Episodic Other upper respiratory infections (2 sources) Sore throat symptom; Translations: [Acute pharyngitis, unspecified] 03-24-2023 Episodic Residual codes; unclassified (20 sources) Hypersomnia; Translations: [Hypersomnia, unspecified] Onset: 05-15-2021 05-15-2021 Chronic Residual codes; unclassified (1 source) Daytime somnolence; Translations: [Other hypersomnia] 12-10-2022 Chronic Residual codes; unclassified (1 source) Other hypersomnia; Translations: [Excessive daytime sleepiness] Onset: 08-17-2022 Chronic Skin and subcutaneous tissue infections (3 sources) Abscess of skin and/or subcutaneous tissue; Translations: [Cutaneous abscess, unspecified] Onset: 04-01-2022 Episodic Unclassified (1 source) Chronic midline low back pain without sciatica; Translations: [Chronic midline low back pain without sciatica] Onset: 06-27-2021 Past or Other Problems Problem Classification Problem Date Documented Da te Episodic/Chronic Contraceptive and procreative management (2 sources) Social and personal history finding; Translations: [Encounter for procreative management, unspecified] Onset: 06-05-2022 Episodic Malaise and fatigue (2 sources) Asthenia; Translations: [Weakness] Onset: 06-27-2021 Episodic Other acquired deformities (17 sources) Leg length inequality; Translations: [Unequal limb length (acquired), unspecified site] Onset: 12-07-2022 12-03-2022 Episodic Other acquired deformities (1 source) Unequal limb length (acquired), unspecified site; Translations: [Leg length inequality] Onset: 12-07-2022 Episodic Other nutritional; endocrine; and metabolic disorders (20 sources) Body mass index 25-29 - overweight; Translations: [Overweight] Onset: 07-16-2021 Episodic Other skin disorders (1 source) Other acne; Translations: [Other acne] Onset: 06-05-2022 Episodic Ovarian cyst (2 sources) Ruptured cyst of ovary; Translations: [Unspecified ovarian cyst, unspecified side] Onset: 06-05-2022 Episodic Residual codes; unclassified (20 sources) Disturbance in sleep behavior; Translations: [Sleep disorder, unspecified] Onset: 12-05-2020 12-05-2020 Episodic Spondylosis; intervertebral disc disorders; other back problems (20 sources) Chronic low back pain; Translations: [Chronic bilateral low back pain without sciatica] Onset: 07-16-2021 Episodic Sprains and strains (18 sources) Low back strain; Translations: [Strain of muscle, fascia and tendon of lower back, subsequent encounter] Onset: 12-07-2022 12-03-2022 Episodic Results Test Name Value Interpretation Reference Range Facil ity Vital Signs Date Time Vital Sign Value Performing Clinician Facility 05-20-2023 11:40-0500 Body weight 87.[address] [employer] SHIPPING/RECEIVING CLERK.CNM Work Phone: [facility] 05-20-2023 11:40-0500 Diastolic blood pressure 66 mm[Hg] Kourtney [address] [employer] SHIPPING/RECEIVING CLERK.CNM Work Phone: [facility] 05-20-2023 11:40-0500 Systolic blood pressure 110 mm[Hg] Kourtney Plotts SHIPPING/RECEIVING CLERK.CNM Work Phone: [facility] 03-24-2023 14:50-0500 Body temperature 97.81 [degF] Krislyn Aberegg PA Work Phone: [facility] 03-24-2023 14:50-0500 Body weight 87.36 kg Krislyn Aberegg PA Work Phone: [facility] 03-24-2023 14:50-0500 Diastolic blood pressure 72 mm[Hg] Krislyn Aberegg PA Work Phone: [facility] 03-24-2023 14:50-0500 Heart rate 105 /min Krislyn Aberegg PA Work Phone: [facility] 03-24-2023 14:50-0500 Respiratory rate 18 /min Krislyn Aberegg PA Work Phone: [facility] 03-24-2023 14:50-0500 SaO2% (BldA) [Mass fraction] 99 % Krislyn Aberegg PA Work Phone: [facility] 03-24-2023 14:50-0500 Systolic blood pressure 124 mm[Hg] Krislyn Aberegg PA Work Phone: [facility] 02-03-2023 13:18-0400 Body weight 85.73 kg Kourtney Plotts SHIPPING/RECEIVING CLERK.CNM Work Phone: [facility] 02-03-2023 13:18-0400 Diastolic blood pressure 70 mm[Hg] Kourtney Plotts SHIPPING/RECEIVING CLERK.CNM Work Phone: [facility] 02-03-2023 13:18-0400 Systolic blood pressure 110 mm[Hg] Kourtney Plotts SHIPPING/RECEIVING CLERK.CNM Work Phone: [facility] 12-03-2022 12:50-0400 Body height 154.9 cm Waldo CALVIN-C Work Phone: [facility] 12-03-2022 12:50-0400 Body weight 82.51 kg Waldo CALVIN-C Work Phone: [facility] 12-03-2022 12:50-0400 Diastolic blood pressure 68 mm[Hg] Waldo CALVIN-C Work Phone: [facility] 12-03-2022 12:50-0400 Heart rate 105 /min Waldo CALVIN-C Work Phone: [facility] 12-03-2022 12:50-0400 SaO2% (BldA) [Mass fraction] 100 % Waldo CALVIN-C Work Phone: [facility] 12-03-2022 12:50-0400 Systolic blood pressure 115 mm[Hg] Waldo CALVIN-C Work Phone: [facility] 06-05-2022 13:34-0500 Body weight 78.47 kg Kourtney Plotts SHIPPING/RECEIVING CLERK.CNM Work Phone: [facility] 06-05-2022 13:34-0500 Diastolic blood pressure 70 mm[Hg] Kourtney Plotts SHIPPING/RECEIVING CLERK.CNM Work Phone: [facility] 06-05-2022 13:34-0500 Systolic blood pressure 110 mm[Hg] Kourtney Plotts SHIPPING/RECEIVING CLERK.CNM Work Phone: [facility] 04-03-2022 16:31-0500 Body height 152 cm GEM CAMEJO DO [facility] 04-03-2022 16:31-0500 Body temperature 97.16 [degF] GEM SUTHERLANDStyleShare DO [facility] 04-03-2022 16:31-0500 Body weight 78 kg GEM CAMEJO DO [facility] 04-03-2022 16:31-0500 Diastolic Blood Pressure Non-Invasive 63 1 [facility] 04-03-2022 16:31-0500 Heart rate 100 /min [facility] 04-03-2022 16:31-0500 Height ZScore -1.74 [facility] Encounters Encounter Date Encounter Type Care Provider Facility Start: 06-02-2023 End: 06-02-2023 ambulatory Kourtney Okeefe APRN.[facility] Work Phone: OB/Gynecology Procedures Date Procedure Procedure Detail Performing Clinician Start: 06-02-2023 transvaginal Quincy Okeefe APRNNirCNTrenton Work Phone: Start: 05-20-2023 Urine test visual color cmprsn meths Kourtney Okeefe APRN.[facility] Work Phone: Start: 03-24-2023 STREP A MOLECULAR (POC) Jocelin CALVIN Work Phone: Start: 09-19-2022 Actigraphy testing recording analysis i&r Susanna Barriga MD Work Phone: Start: 12-19-2021 Iadna trichomonas vaginalis amplified probe tech Melissa Malone APRNNirCELLAR PACKER Work Phone: Start: 12-05-2021 Adult depression screening assessment Brianna Stovall APRN.CNP Work Phone: Start: 09-03-2020 Adult depression screening assessment Scott Mercado APRN.CELLAR PACKER, [facility] Work Phone: Laboratory test resu lt abnormal Abnormal laboratory test result Scott Mercado APRN.CELLAR PACKER, [facility] Work Phone: Laboratory test resu lt abnormal Abnormal laboratory test result Daniela Gaston APRN.CE[employer] P[employer]ER Work Phone: Laboratory test resu lt abnormal Abnormal laboratory test result Liz Esparza MD Work Phone: Plan of Treatment Date Care Activity Detail Author Start: 12-07-2024 Urine microalbumin profile [facility] Start: 05-20-2023 End: 08-19-2023 17-Hydroxyprogesterone [Mass/volume] in Serum or Plasma HYDROXYPROGESTERONE-17 Lab Routine Missed period Secondary amenorrhea Irregular menstrual cycle Expected: 05/20/2023, Expires: 08/19/2023 [facility] Work Phone: Immunizations Immunization Date Immunization Notes Care Provider Fa [facility] 12-15-2021 pneumococcal Conjuga te, unspecified formulation Brianna Stovall APRN.CNP Work Phone: [facility] Work Phone: 12-15-2021 pneumococcal (PCV20) vaccine, 20 valent (PREVNAR 20) Brianna Sotvall APRN.CNP Work Phone: [facility] 06-24-2021 Human Papillomavirus 9-valent vaccine Scott Mercado APRN.CELL[employer] P[employer]ER, [facility] Work Phone: [facility] Work Phone: 03-11-2021 Human Papillomavirus 9-valent vaccine Scott Mercado APRN.CELL[employer] P[employer]ER, [facility] Work Phone: [facility] 12-24-2020 COVID-19 vaccine (JHONNY) Scott Mercado APRN.CELL[employer] P[employer]ER, [facility] Work Phone: [facility] Work Phone: 12-24-2020 Human Papillomavirus 9-valent vaccine Scott Mercado APRN.[facility] Work Phone: [facility] Work Phone: 12-24-2020 meningococcal polysaccharide (groups A, C, Y and W-135) diphtheria toxoid conjugate vaccine (MCV4P) Scott Mercado APRN.[facility] Work Phone: [facility] Work Phone: 12-07-2014 tetanus toxoid, redu efren diphtheria toxoid, and acellular pertussis vaccine, adsorbed Scott Mercado APRN.[facility] Work Phone: [facility] 12-07-2014 varicella virus vaccine Lan Mercado APRN.[facility] Work Phone: [facility] 05-20-2009 varicella virus vaccine Lan Mercado APRN.[facility] Work Phone: [facility] 01-01-2009 diphtheria, tetanus toxoids and acellular pertussis vaccine Scott Mercado APRN.[facility] Work Phone: [facility] 01-01-2009 diphtheria, tetanus toxoids and acellular pertussis vaccine, Haemophilus influenzae type b conjugate, and poliovirus vaccine, inactivated ([id number]) Scott Mercado APRN.[facility] Work Phone: [facility] 01-01-2009 measles, mumps, rube lla, and varicella virus vaccine Scott Mercado APRN.[facility] Work Phone: [facility] 04-20-2007 measles, mumps, rube lla, and varicella virus vaccine Scott Mercado APRN.[facility] Work Phone: [facility] 04-20-2006 DTaP-Haemophilus influenzae type b conjugate vaccine Scott Mercado APRN.[facility] Work Phone: [facility] 07-09-2003 diphtheria, tetanus toxoids and acellular pertussis vaccine, Haemophilus influenzae type b conjugate, and poliovirus vaccine, inactivated ([id number]) Scott Mercado APRN.[facility] Work Phone: [facility] 04-03-2003 diphtheria, tetanus toxoids and acellular pertussis vaccine, Haemophilus influenzae type b conjugate, and poliovirus vaccine, inactivated ([id number]) Scott Mercado APRN.[facility] Work Phone: [facility] 04-03-2003 hepatitis B vaccine, pediatric or pediatric/adolescent dosage Scott Mercado APRN.[facility] Work Phone: [facility] 2002 diphtheria, tetanus toxoids and acellular pertussis vaccine, Haemophilus influenzae type b conjugate, and poliovirus vaccine, inactivated ([id number]) Scott Mercado APRN.[facility] Work Phone: [facility] 2002 hepatitis B vaccine, pediatric or pediatric/adolescent dosage Scott Mercado APRN.[facility] Work Phone: [facility] 2002 hepatitis B vaccine, pediatric or pediatric/adolescent dosage Scott Mercado APRN.[facility] Work Phone: [facility] Payers Date Payer Category Payer Medicaid [place] [employer] [employer] [id number] 2019-Present [phone] [facility] [address] [place] [id number] Medicaid [id number] 2019 Medicaid [id number] 2019 Medicaid [id number] 1981 Unknown [id number] 1983 Unknown [id number] 1983 Unknown [id number] Social History Date Type Detail Facility Start: 06-27-2021 Tobacco smoking status NHIS Light to bacco smoker [facility] Start: 06-27-2021 Tobacco use and exposure User of smokeless tobacco [facility] Start: 07-16-2021 End: 05-20-2023 Alcohol intake Lifetime non-drinker (finding) [facility] Start: 03-09-2021 End: 03-18-2022 History SDOH Alcohol Frequency 1 [facility] Start: 03-09-2021 History SDOH Alcohol Std Drinks 98 [facility] Start: 03-09-2021 End: 03-18-2022 History SDOH Social Connections Phone 5 [facility] Start: 03-09-2021 End: 03-18-2022 History SDOH Social Connections Get Together 4 [facility] Start: 03-09-2021 End: 03-18-2022 History SDOH Social Connections Membership 2 [facility] Start: 03-09-2021 End: 03-18-2022 History SDOH Social Connections Living 8 [facility] Start: 03-09-2021 History SDOH Physica l Activity MPS 12 [facility] Start: 03-09-2021 End: 03-18-2022 History SDOH Financial 3 [facility] Start: 06-27-2021 Tobacco Comment Pt vapes [facility] Start: 2002 Sex Assigned At Not on file C [facility] Start: 07-06-2021 End: 02-20-2022 Exposure to SARS-CoV-2 (event) Not sure [facility] Start: 12-18-2021 End: 02-20-2022 Tobacco smoking status NHIS Ex-smoker [facility] History of tobacco use Current smoker [facility] History of tobacco use Cigarette Smoker C [facility] Start: 12-18-2021 End: 02-20-2022 Tobacco use and exposure Smokeless tobacco non-user [facility] Start: 02-20-2022 [facility] Start: 03-18-2022 History SDOH Alcohol Std Drinks 0 [facility] Start: 07-14-2021 Tobacco smoking status Heavy t obacco smoker (finding) [facility] Sex Assigned At Sex [facility] Start: 03-17-2022 End: 12-03-2022 History of Social function [facility] silvestre Start: 03-17-2022 End: 12-03-2022 Social connection and isolation panel [facility] Do you belong to any clubs or organizations such as mormonism groups, unions, fraternal or athletic groups, or school groups? No [facility] Are you now , , , , never or living with a partner? Living with partner [facility] How often to you hav e a drink containing alcohol? Never [facility] How many standard dr inks containing alcohol do you have on a typical day? Patient does not drink [facility] How hard is it for y ou to pay for the very basics like food, housing, medical care, and heating Hard [facility] Do you feel stress - tense, restless, nervous, or anxious, or unable to sleep at night because your mind is troubled all the time - these days [OSQ] To some extent [facility] (I/We) worried wheth er (my/our) food would run out before (I/we) got money to buy more. Often true [facility] In the past 12 month s, was there a time when you were not able to pay the mortgage or rent on time? Yes [facility] Functional Status Date Assessment Result Facility 04-03-2022 Functional Status ID band on, Call device within reach, Bed in low position, Wheels locked, Visitor at bedside [facility] 04-01-2022 Functional Status Standard Safet y ID band on, Call device within reach, Bed in low position, Wheels locked, Upper/Half-Length side-rails up, Bedside Cart Locked, Safety level maintained [facility] Mental Status Date Assessment Result Facility 04-03-2022 [facility] 04-01-2022 Mental Status Orientation Oriented x 4 [facility] Clinical Notes 06-27-2021 to 06-02-2023 Telephone Encounter - Kourtney Okeefe APRN.CN - 06/02/2023 5:18 PM Yvrose Fierro RDMS - 06/02/2023 1:00 PM Kourtney Sanchez APRN.CNM - 05/20/2023 11:38 AM ESTPatient Instructions Note Date & Type Note Facility 06-02-2023 Miscellaneous Notes Rx sent for Provera 10 mg PO daily x 10 days and once stop medication- should start cycle. Rx for Nuva Ring as well. Please don't use until after you have a cycle. You will place ring vaginally and leave in for 3 weeks. Remove on week 4 and have a period. Place New Nuva Ring after week of period. Kourtney Okeefe APRN.CNM documented in this encounter [facility] 06-02-2023 Note HNO ID: [id number] Author: YVROSE OAKES RDMS Service: ? Author Type: Donor Support Technician Type: Progress Notes Filed: 06/02/2023 13:36 Note Text: Radiology Service Progress Note PATIENT NAME: Esha Francois DATE OF SERVICE: June 02, 2023 TIME: 1:36 PM PATIENT IDENTITY VERIFICATION COMPLETED USING TWO (2) IDENTIFIERS: Name and Date of confirmed by patient verbally. FALL SCREENING: Has the patient had 2 falls in the last year or 1 fall with injury or currently using an Ambulatory Assistive Device (Walker, Cane, Wheelchair, Crutches, etc.)? No PATIENT GENDER DATA: Female. status: : No status: NO. PATIENT RELEVANT IMPLANT DATA REVIEWED: Not Applicable PATIENT PRESENTS WITH AN IMPLANTABLE OR ATTACHED PLANT SUPERVISOR: No RADIOLOGY DEPARTMENT: Ultrasound PERIPHERAL IV DATA: Not applicable SIGNED BY: Yvrose Oakes RDMS June 02, 2023 1:36 PM [facility] 06-02-2023 History of Presen t illness Narrative Radiology Service Progress Note PATIENT NAME: Esha Francois DATE OF SERVICE: June 02, 2023 TIME: 1:36 PM PATIENT IDENTITY VERIFICATION COMPLETED USING TWO (2) IDENTIFIERS: Name and Date of confirmed by patient verbally. FALL SCREENING: Has the patient had 2 falls in the last year or 1 fall with injury or currently using an Ambulatory Assistive Device (Walker, Cane, Wheelchair, Crutches, etc.)? No PATIENT GENDER DATA: Female. status: : No status: NO. PATIENT RELEVANT IMPLANT DATA REVIEWED: Not Applicable PATIENT PRESENTS WITH AN IMPLANTABLE OR ATTACHED PLANT SUPERVISOR: No RADIOLOGY DEPARTMENT: Ultrasound PERIPHERAL IV DATA: Not applicable SIGNED BY: Yvrose Oakes RDMS June 02, 2023 1:36 PM documented in this encounter [facility] 05-20-2023 Note HNO ID: [id number] Author: KOURTNEY OKEEFE APRN.CNM Service: ? Author Type: Healthcare Administration Internship Type: Progress Notes Filed: 05/20/2023 13:25 Note Text: Esha Francois is a 22 year old female who presents for problem visit of irregular periods. Continues to skip several months. LMP was February 2023. Has not had any bleeding or spotting since. Reports taking several HPT's that are negative. Not using control. Does not want to use hormonal options due to concern over side effects to her mood. She desires but isn't actively trying to conceive . C/O irregular pelvic pain. Describes pain as sharp and shooting . History of ruptured ovarian cyst. REVIEW OF SYSTEMS Abdomen: No bloating, early satiety, indigestion, or increased flatulence. No abdominal pain, nausea, vomiting, diarrhea, or constipation. Bladder: No dysuria, gross hematuria, urinary frequency, urinary urgency, or incontinence. Breast: No breast lumps, nipple d/c, overlying skin changes, redness or skin retraction. Expanded ROS: N/A Allergies and current medication updated:Yes EXAM: BP 110/66 Wt 192 lb 6.4 oz (87.3kg) LMP 02/22/2023 GENERAL: pleasant, female in no apparent distress HEENT: Normocephalic and atraumatic NECK: Supple and full range of motion DERMATOLOGY: Normal BREAST: deferred CHEST: Normal inspiratory effort ABDOMEN: soft, non-tender, and no masses PELVIC: deferred BIMANUAL: deferred NEURO: alert and oriented x3,exam grossly non-focal EXTREMITIES: normal ASSESSMENT/PLAN: 1. Missed period - ICD9: 626.4, ICD10: N92.6 (primary diagnosis) 2. Secondary amenorrhea - ICD9: 626.0, ICD10: N91.1 3. Irregular menstrual cycle - ICD9: 626.4, ICD10: N92.6 4. Pelvic pain in female - ICD9: 625.9, ICD10: R10.2 - Discussed previous diagnosis of PCOS- handouts provided - Patient requesting blood work - If she does not start period by end of the month will call and get Provera - Urine HCG - NEGATIVE - Pelvic US - TSH BLD - PROLACTIN BLD - DHEA-S BLD - TESTOSTERONE TOTAL - HYDROXYPROGESTERONE-17 - PROGESTERONE BLD - LIPID PANEL BASIC - FSH BLD - LUTEINIZING HORMONE - HGB A1C - INSULIN ASSAY BLOOD - GLUCOSE FASTING BLD - ESTRADIOL-17B BLD - vitamin daily - Will follow up after results [facility]ourtney Okeefe APRN.[facility] History of Presen t illness Narrative Esha Francois is a 22 year old female who presents for problem visit of irregular periods. Continues to skip several months. LMP was February 2023. Has not had any bleeding or spotting since. Reports taking several HPT's that are negative. Not using control. Does not want to use hormonal options due to concern over side effects to her mood. She desires but isn't actively trying to conceive . C/O irregular pelvic pain. Describes pain as sharp and shooting . History of ruptured ovarian cyst. REVIEW OF SYSTEMS Abdomen: No bloating, early satiety, indigestion, or increased flatulence. No abdominal pain, nausea, vomiting, diarrhea, or constipation. Bladder: No dysuria, gross hematuria, urinary frequency, urinary urgency, or incontinence. Breast: No breast lumps, nipple d/c, overlying skin changes, redness or skin retraction. Expanded ROS: N/A Allergies and current medication updated:Yes EXAM: BP 110/66 Wt 192 lb 6.4 oz (87.3kg) LMP 02/22/2023 GENERAL: pleasant, female in no apparent distress HEENT: Normocephalic and atraumatic NECK: Supple and full range of motion DERMATOLOGY: Normal BREAST: deferred CHEST: Normal inspiratory effort ABDOMEN: soft, non-tender, and no masses PELVIC: deferred BIMANUAL: deferred NEURO: alert and oriented x3,exam grossly non-focal EXTREMITIES: normal ASSESSMENT/PLAN: 1. Missed period - ICD9: 626.4, ICD10: N92.6 (primary diagnosis) 2. Secondary amenorrhea - ICD9: 626.0, ICD10: N91.1 3. Irregular menstrual cycle - ICD9: 626.4, ICD10: N92.6 4. Pelvic pain in female - ICD9: 625.9, ICD10: R10.2 - Discussed previous diagnosis of PCOS- handouts provided - Patient requesting blood work - If she does not start period by end of the month will call and get Provera - Urine HCG - NEGATIVE - Pelvic US - TSH BLD - PROLACTIN BLD - DHEA-S BLD - TESTOSTERONE TOTAL - HYDROXYPROGESTERONE-17 - PROGESTERONE BLD - LIPID PANEL BASIC - FSH BLD - LUTEINIZING HORMONE - HGB A1C - INSULIN ASSAY BLOOD - GLUCOSE FASTING BLD - ESTRADIOL-17B BLD - vitamin daily - Will follow up after results Kourtney Okeefe APRN.CNM documented in this encounter [facility] 04-16-2023 Note HNO ID: [id number] Author: Valentin Portillo APRN.CNP Service: ? Author Type: Nurse Practitioner Type: Progress Notes Filed: 04/16/2023 1:26 PM Note Text: Subjective HPI Nontoxic-appearing female presents urgent care requesting test. States her period is about 2 months late. Presents today requesting test. Did take a test at home today she thought it might be positive faint line. Presents today for eval. Overall feels well. Denies any fever body aches chills productive cough chest pain shortness of breath pleuritic pain hemoptysis nausea vomiting abdominal pain change in bowel or bladder habits. Past medical history prescription medication use and allergies reviewed. .Patient presents with: Test : States she is 55 days late for her period PAST MEDICAL HISTORY Diagnosis Date Anxiety with depression 12/05/2020 Chronic bilateral low back pain without sciatica 07/16/2021 SOTO (generalized anxiety disorder) Overweight (BMI 25.0-29.9) 07/16/2021 Sleep disturbance 12/05/2020 History reviewed. No pertinent surgical history. ALLERGIES Patient has no known allergies. MEDICATIONS lamoTRIgine (LAMICTAL) 150 mg tablet take 1 tablet by mouth once daily Mefenamic Acid 250 mg cap Take 1 capsule by mouth every 6 hours as needed. venlafaxine ER (EFFEXOR XR) 150 mg 24 hr capsule Take 1 capsule by mouth once daily. FAMILY HISTORY Problem Relation Age of Onset Narcolepsy Father Social History Tobacco Use Smoking status: Former Types: Cigarettes Smokeless tobacco: Never Tobacco comments: vape Vaping Use Vaping Use: current everyday user Substances: Nicotine, Flavoring Devices: Pre-filled pod Substance Use Topics Alcohol use: Never Drug use: Never BP 107/77 Pulse 105 Temp 36.6 ?C (97.8 ?F) Resp 18 Wt 86.6 kg (191 lb) LMP 02/22/2023 (Exact Date) SpO2 99% BMI 36.09 kg/m? Review of Systems Constitutional: Negative for chills, fever and malaise/fatigue. HENT: Negative for congestion, ear discharge, ear pain, sinus pain and sore throat. Eyes: Negative for blurred vision, pain, discharge and redness. Respiratory: Negative for cough, hemoptysis, sputum production, shortness of breath, wheezing and stridor. Cardiovascular: Negative for chest pain. Gastrointestinal: Negative for abdominal pain, diarrhea, nausea and vomiting. Genitourinary: Negative. Musculoskeletal: Negative for myalgias. Skin: Negative for itching and rash. Neurological: Negative for dizziness and headaches. Objective Physical Exam Constitutional: General: She is not in acute distress. Appearance: She is not diaphoretic. HENT: Head: Normocephalic. Jaw: No trismus, tenderness, swelling or pain on movement. Mouth/Throat: Mouth: Mucous membranes are moist. Pharynx: Oropharynx is clear. Uvula midline. No pharyngeal swelling, oropharyngeal exudate, posterior oropharyngeal erythema or uvula swelling. Eyes: Conjunctiva/sclera: Conjunctivae normal. Pupils: Pupils are equal, round, and reactive to light. Cardiovascular: Rate and Rhythm: Normal rate and regular rhythm. Heart sounds: Normal heart sounds. Pulmonary: Effort: Pulmonary effort is normal. No tachypnea, accessory muscle usage or respiratory distress. Breath sounds: Normal breath sounds. No stridor. No wheezing, rhonchi or rales. Abdominal: General: There is no distension. Palpations: Abdomen is soft. Tenderness: There is no abdominal tenderness. There is no guarding or rebound. Musculoskeletal: Cervical back: Normal range of motion and neck supple. No edema, erythema, rigidity or tenderness. No pain with movement. Normal range of motion. Lymphadenopathy: Cervical: No cervical adenopathy. Skin: General: Skin is warm and dry. Neurological: Mental Status: She is alert and oriented to person, place, and time. ASSESSMENT/PLAN: 1. Late menses - ICD9: 626.8, ICD10: N92.6 - HCG QUAL UR B/O hCG negative. Follow-up with PERSONNEL PLACEMENT SPECIALIST as scheduled. Patient was educated on supportive therapies. Patient will follow up with primary care provider as needed. Patient was instructed to immediately proceed to emergency room for any new, worsening, or symptoms lasting longer than anticipated. The patient's clinical presentation is otherwise unremarkable at this time. Based on exam and clinical finding, the patient is stable for discharge. Plan of care was discussed with patient. Patient verbalizes understanding and agrees to plan of care. This note was generated using [employer] software. It may contain errors in wording, punctuation, or spelling. Valentin Portillo APRN.CELL[employer] P[employer]ER [facility] 03-29-2023 Note HNO ID: [id number] Author: Rimma Fuentes PT Service: ? Author Type: Physical Therapist Type: Progress Notes Filed: 03/29/2023 5:06 PM Note Text: 03/29/2023 [facility] PHYSICAL THERAPY DISCONTINUANCE OF CARE Plan of Care Period: Start of Care Date: 12/07/22 Last Visit Date: 01/11/2023 Therapy Program: The following is a summary of the interventions provided for this episode of care; Therapeutic exercise, Neuromuscular re-education, and Patient/Family/Caregiver Education Assessment: Based on most recent visit, patient was progressing slower than expected toward functional goals based on documented subjective information on progress and documented objective information regarding flexibility, overall function, posture, and range of motion. Unable to formally assess goal achievement, as patient has not returned to therapy or scheduled additional follow-up appointments. Reason for Discontinuation of Care: Patient has not returned to therapy or scheduled additional follow-up appointments. Rimma Fuentes PT [facility] 03-25-2023 Miscellaneous Notes Patient notified of results and provider's instructions. Patient verbalizes understanding. Ansley Welch RN TC to pt. LM to call office, ask for triage nurse to get results. Kelsie Laguerre LPN Please let patient know she tested positive for COVID-19. Supportive measures at home. Isolate for 5 days. Mask for 5 days documented in this encounter [facility] 03-24-2023 Note HNO ID: [id number] Author: Jocelin Munoz PA Service: ? Author Type: Physician Construction Teacher Type: Progress Notes Filed: 03/24/2023 3:10 PM Note Text: This note was created using [employer]. Subjective Esha Francois is a 22 year old female. HPI 22-year-old female presents for cough, congestion, sore throat starting this morning. No fevers. States her brother was recently sick with similar symptoms. No vomiting or diarrhea. Still able to eat and drink. Has not done a home COVID test. PAST MEDICAL HISTORY Diagnosis Date Anxiety with depression 12/05/2020 Chronic bilateral low back pain without sciatica 07/16/2021 SOTO (generalized anxiety disorder) Overweight (BMI 25.0-29.9) 07/16/2021 Sleep disturbance 12/05/2020 No past surgical history on file. ALLERGIES Patient has no known allergies. MEDICATIONS Mefenamic Acid 250 mg cap Take 1 capsule by mouth every 6 hours as needed. lamoTRIgine (LAMICTAL) 150 mg tablet Take 1 tablet by mouth once daily. venlafaxine ER (EFFEXOR XR) 150 mg 24 hr capsule Take 1 capsule by mouth once daily. FAMILY HISTORY Problem Relation Age of Onset Narcolepsy Father Social History Tobacco Use Smoking status: Former Types: Cigarettes Smokeless tobacco: Never Tobacco comments: vape Vaping Use Vaping Use: current everyday user Substances: Nicotine, Flavoring Devices: Pre-filled pod Substance Use Topics Alcohol use: Never Drug use: Never Review of Systems Constitutional: Negative for chills and fever. HENT: Positive for congestion and sore throat. Negative for ear pain. Respiratory: Positive for cough. Negative for shortness of breath. Cardiovascular: Negative for chest pain. Gastrointestinal: Negative for diarrhea and vomiting. Objective BP 124/72 Pulse 105 Temp 36.6 ?C (97.8 ?F) Resp 18 Wt 87.4 kg (192 lb 9.6 oz) LMP 03/08/2023 (Exact Date) SpO2 99% BMI 36.39 kg/m? Physical Exam Vitals and nursing note reviewed. Constitutional: General: She is not in acute distress. Appearance: Normal appearance. She is not toxic-appearing. HENT: Right Ear: Tympanic membrane and ear canal normal. Left Ear: Tympanic membrane and ear canal normal. Nose: Congestion present. Mouth/Throat: Mouth: Mucous membranes are moist. Pharynx: Posterior oropharyngeal erythema present. No oropharyngeal exudate. Eyes: Conjunctiva/sclera: Conjunctivae normal. Cardiovascular: Rate and Rhythm: Normal rate and regular rhythm. Pulmonary: Effort: Pulmonary effort is normal. Breath sounds: Normal breath sounds. Neurological: Mental Status: She is alert. Assessment and Plan ASSESSMENT/PLAN: 1. Sore throat - ICD9: 462, ICD10: J02.9 (primary diagnosis) - suspect viral - Group A strep molecular testing negative - Discussed supportive care treatment with fluids, rest and analgesia. - STREP A MOLECULAR (POC) 2. URI, acute - ICD9: 465.9, ICD10: J06.9 - Discussed viral etiology and rationale for treatment. - Symptomatic treatment with prn analgesia - Supportive care with fluids and rest - COVID AND INFLUENZA A/B AND RSV NAAT, ROUTINE - In window for Tamiflu until 03/26/23 Diagnosis and treatment plan were discussed and questions were answered to the patient's satisfaction. Pt acknowledged understanding of concepts and follow up plan. Specific signs and symptoms that would indicate the need for higher level of care were discussed in detail warranting prompt ER evaluation. MARIXA Engel [facility] 03-24-2023 Instructions Jocelin Munoz PA - 03/24/2023 3:08 PM EST Rest, increase water intake Motrin or Tylenol as needed for fever or pain. Salt water gargles, chloraseptic spray or lozenges as needed for sore throat. Warm beverages, honey. Nasal saline spray as needed Cool mist humidifier at night A cold normally lasts 7-10 days. If your symptoms are lasting longer, develop fever, or worsening by that time instead of improving then return to clinic or follow up with PCP for re-evaluation. Tylenol (generic acetaminophen) 500 mg-2 tabs every 8 hrs. as needed for fever and aches Ibuprofen 600 mg (3-200mg tablets) every 6 hours -Mucinex (generic is fine) Guaifenesin 1200 mg twice daily to help with cough and to thin out mucus documented in this encounter [facility] 03-24-2023 History of Presen t illness Narrative This note was created using [employer]. Subjective Esha Francois is a 22 year old female. HPI 22-year-old female presents for cough, congestion, sore throat starting this morning. No fevers. States her brother was recently sick with similar symptoms. No vomiting or diarrhea. Still able to eat and drink. Has not done a home COVID test. PAST MEDICAL HISTORY Diagnosis Date Anxiety with depression 12/05/2020 Chronic bilateral low back pain without sciatica 07/16/2021 SOTO (generalized anxiety disorder) Overweight (BMI 25.0-29.9) 07/16/2021 Sleep disturbance 12/05/2020 No past surgical history on file. ALLERGIES Patient has no known allergies. MEDICATIONS Mefenamic Acid 250 mg cap Take 1 capsule by mouth every 6 hours as needed. lamoTRIgine (LAMICTAL) 150 mg tablet Take 1 tablet by mouth once daily. venlafaxine ER (EFFEXOR XR) 150 mg 24 hr capsule Take 1 capsule by mouth once daily. FAMILY HISTORY Problem Relation Age of Onset Narcolepsy Father Social History Tobacco Use Smoking status: Former Types: Cigarettes Smokeless tobacco: Never Tobacco comments: vape Vaping Use Vaping Use: current everyday user Substances: Nicotine, Flavoring Devices: Pre-filled pod Substance Use Topics Alcohol use: Never Drug use: Never Review of Systems Constitutional: Negative for chills and fever. HENT: Positive for congestion and sore throat. Negative for ear pain. Respiratory: Positive for cough. Negative for shortness of breath. Cardiovascular: Negative for chest pain. Gastrointestinal: Negative for diarrhea and vomiting. Objective BP 124/72 Pulse 105 Temp 36.6 C (97.8 F) Resp 18 Wt 87.4 kg (192 lb 9.6 oz) LMP 03/08/2023 (Exact Date) SpO2 99% BMI 36.39 kg/m Physical Exam Vitals and nursing note reviewed. Constitutional: General: She is not in acute distress. Appearance: Normal appearance. She is not toxic-appearing. HENT: Right Ear: Tympanic membrane and ear canal normal. Left Ear: Tympanic membrane and ear canal normal. Nose: Congestion present. Mouth/Throat: Mouth: Mucous membranes are moist. Pharynx: Posterior oropharyngeal erythema present. No oropharyngeal exudate. Eyes: Conjunctiva/sclera: Conjunctivae normal. Cardiovascular: Rate and Rhythm: Normal rate and regular rhythm. Pulmonary: Effort: Pulmonary effort is normal. Breath sounds: Normal breath sounds. Neurological: Mental Status: She is alert. Assessment and Plan ASSESSMENT/PLAN: 1. Sore throat - ICD9: 462, ICD10: J02.9 (primary diagnosis) - suspect viral - Group A strep molecular testing negative - Discussed supportive care treatment with fluids, rest and analgesia. - STREP A MOLECULAR (POC) 2. URI, acute - ICD9: 465.9, ICD10: J06.9 - Discussed viral etiology and rationale for treatment. - Symptomatic treatment with prn analgesia - Supportive care with fluids and rest - COVID & INFLUENZA A/B & RSV NAAT, ROUTINE - In window for Tamiflu until 03/26/23 Diagnosis and treatment plan were discussed and questions were answered to the patient's satisfaction. Pt acknowledged understanding of concepts and follow up plan. Specific signs and symptoms that would indicate the need for higher level of care were discussed in detail warranting prompt ER evaluation. MARIXA Engel documented in this encounter [facility] 02-24-2023 Miscellaneous Notes Last saw CP 02/03/23. Requested Prescriptions Pending Prescriptions Disp Refills Mefenamic Acid 250 mg cap 30 capsule 6 Sig: Take 1 capsule by mouth every 6 hours as needed. Tiffany Vidal RN documented in this encounter [facility] 02-03-2023 Note HNO ID: [id number] Author: Kourtney Okeefe APRN.CNM Service: ? Author Type: Healthcare Administration Internship Type: Progress Notes Filed: 02/03/2023 2:10 PM Note Text: Esha Francois is a 22 year old female who presents for problem visit of irregular periods. C/O cycles every 33 days and cycles last 5 days. First day is painful with cramping. Second day is heaviest day of bleeding. Wearing pads and changing every couple of hours. C/O increased clots as well. Skipped period in December and became concerned. Did have period the first part of January which was heavier than usual . Kept appointment today to discuss options for regulation of cycles. Currently sexually active and does not use any control. Desires but isn't actively trying . Stated she was told she has PCOS in the past and may be difficult. She does not want to take OCP due to risk of hormonal imbalances. Currently taking Lamictal and Effexor for mood. Director Of Women'S Services History LMP: 01/17/2023 (Exact Date), Having periods Age at Menarche: Age at First : Age at Menopause: Director Of Women'S Services History Comments: Sexual Activity: Yes; No partner data on record Contraception: Condom, None PAST MEDICAL HISTORY Diagnosis Date Anxiety with depression 12/05/2020 Chronic bilateral low back pain without sciatica 07/16/2021 SOTO (generalized anxiety disorder) Overweight (BMI 25.0-29.9) 07/16/2021 Sleep disturbance 12/05/2020 No past surgical history on file. FAMILY HISTORY Problem Relation Age of Onset Narcolepsy Father Social History Tobacco Use Smoking status: Former Types: Cigarettes Smokeless tobacco: Never Tobacco comments: vape Vaping Use Vaping Use: current everyday user Substances: Nicotine, Flavoring Devices: Pre-filled pod Substance Use Topics Alcohol use: Never Drug use: Never Current Outpatient Medications Medication Sig lamoTRIgine (LAMICTAL) 150 mg tablet Take 1 tablet by mouth once daily. venlafaxine ER (EFFEXOR XR) 150 mg 24 hr capsule Take 1 capsule by mouth once daily. Mefenamic Acid 250 mg cap Take 1 capsule by mouth every 6 hours as needed. No current facility-administered medications for this visit. Allergies As of Date: 02/03/2023 (No Known Allergies) Fully Assessed 02/03/2023 REVIEW OF SYSTEMS Abdomen: No bloating, early satiety, indigestion, or increased flatulence. No abdominal pain, nausea, vomiting, diarrhea, or constipation. Bladder: No dysuria, gross hematuria, urinary frequency, urinary urgency, or incontinence. Breast: No breast lumps, nipple d/c, overlying skin changes, redness or skin retraction. Expanded ROS: N/A Allergies and current medication updated:Yes EXAM: BP 110/70 Wt 189 lb (85.7kg) LMP 01/17/2023 GENERAL: pleasant, female in no apparent distress HEENT: Normocephalic and atraumatic NECK: Supple and full range of motion DERMATOLOGY: Normal and without lesions NEURO: alert and oriented x3,exam grossly non-focal EXTREMITIES: normal ASSESSMENT/PLAN: 1. Missed period - ICD9: 626.4, ICD10: N92.6 - No cycle in December but started period earlier this month - This is the first time she has skipped a cycle- regular cycles every 33 days - Reassurance provided - Discussed possibly using Nuva Ring in the future for control over OCP - Continues to track cycles - Continue taking vitamins RTO- as needed / yearly exam Kourtney Okeefe APRN.CNM [facility] 02-03-2023 History of Presen t illness Narrative Esha Francois is a 22 year old female who presents for problem visit of irregular periods. C/O cycles every 33 days and cycles last 5 days. First day is painful with cramping. Second day is heaviest day of bleeding. Wearing pads and changing every couple of hours. C/O increased clots as well. Skipped period in December and became concerned. Did have period the first part of January which was heavier than usual . Kept appointment today to discuss options for regulation of cycles. Currently sexually active and does not use any control. Desires but isn't actively trying . Stated she was told she has PCOS in the past and may be difficult. She does not want to take OCP due to risk of hormonal imbalances. Currently taking Lamictal and Effexor for mood. Director Of Women'S Services History LMP: 01/17/2023 (Exact Date), Having periods Age at Menarche: Age at First : Age at Menopause: Director Of Women'S Services History Comments: Sexual Activity: Yes; No partner data on record Contraception: Condom, None PAST MEDICAL HISTORY Diagnosis Date Anxiety with depression 12/05/2020 Chronic bilateral low back pain without sciatica 07/16/2021 SOTO (generalized anxiety disorder) Overweight (BMI 25.0-29.9) 07/16/2021 Sleep disturbance 12/05/2020 No past surgical history on file. FAMILY HISTORY Problem Relation Age of Onset Narcolepsy Father Social History Tobacco Use Smoking status: Former Types: Cigarettes Smokeless tobacco: Never Tobacco comments: vape Vaping Use Vaping Use: current everyday user Substances: Nicotine, Flavoring Devices: Pre-filled pod Substance Use Topics Alcohol use: Never Drug use: Never Current Outpatient Medications Medication Sig lamoTRIgine (LAMICTAL) 150 mg tablet Take 1 tablet by mouth once daily. venlafaxine ER (EFFEXOR XR) 150 mg 24 hr capsule Take 1 capsule by mouth once daily. Mefenamic Acid 250 mg cap Take 1 capsule by mouth every 6 hours as needed. No current facility-administered medications for this visit. Allergies As of Date: 02/03/2023 (No Known Allergies) Fully Assessed 02/03/2023 REVIEW OF SYSTEMS Abdomen: No bloating, early satiety, indigestion, or increased flatulence. No abdominal pain, nausea, vomiting, diarrhea, or constipation. Bladder: No dysuria, gross hematuria, urinary frequency, urinary urgency, or incontinence. Breast: No breast lumps, nipple d/c, overlying skin changes, redness or skin retraction. Expanded ROS: N/A Allergies and current medication updated:Yes EXAM: BP 110/70 Wt 189 lb (85.7kg) LMP 01/17/2023 GENERAL: pleasant, female in no apparent distress HEENT: Normocephalic and atraumatic NECK: Supple and full range of motion DERMATOLOGY: Normal and without lesions NEURO: alert and oriented x3,exam grossly non-focal EXTREMITIES: normal ASSESSMENT/PLAN: 1. Missed period - ICD9: 626.4, ICD10: N92.6 - No cycle in December but started period earlier this month - This is the first time she has skipped a cycle- regular cycles every 33 days - Reassurance provided - Discussed possibly using Nuva Ring in the future for control over OCP - Continues to track cycles - Continue taking vitamins RTO- as needed / yearly exam Kourtney Okeefe APRN.CNM documented in this encounter [facility] 01-11-2023 Note HNO ID: [id number] Author: Rimma Fuentes PT Service: ? Author Type: Physical Therapist Type: Progress Notes Filed: 01/13/2023 7:47 AM Note Text: Episode Visit Count: 5 Therapist That Will Accept/Oversee The Plan Of Care: Rmima Fuentes Start of Care Date: 12/07/22 Onset Date: (4-5 years ago) Plan of Care Certification Date: 12/07/22 Next Certification Due Date: 02/06/23 Patient Identified by Name and Date of : Yes REHABILITATION AND SPORTS THERAPY PHYSICAL THERAPY TREATMENT NOTE ASSESSMENT: Esha Francois tolerated the session with fatigue and decreased symptoms. She demonstrated difficulty with Quadruped TA activation with alt arm lifts. The patient will continue to benefit from ongoing skilled physical therapy to progress toward set goals. PLAN FOR NEXT VISIT: Continue with Quadruped TA activation SUBJECTIVE: Pt reports that her back is sore and painful. Pt reports that she has only completed HEP about 1-2 times since last visit. Pain: Pain Pain Level: 7 Pain Location: Low Back/Lumbar Spine - Right, Low Back/Lumbar Spine - Left, Buttocks - Right, Buttocks - Left Description: Aching, Stabbing Frequency: Continuous, Intermittent (numbness, tingling are intermittent) Post Treatment Pain Post Treatment Pain Level: 5 Post Treatment Pain Location: Low Back/Lumbar Spine - Right, Low Back/Lumbar Spine - Left OBJECTIVE MEASURES WITH LEVEL OF FUNCTION: Good technique with lateral stepping at Hoist. TREATMENT: Therapeutic Exercise: 1: Upright bike x 5 minutes. (1:1 throughout. Discussed HEP.) 2: Seated pushing into 55 cm physioball with TA activation 2x10 3: Seated pushing into 55 cm physioball with TA activation 2x10 with 10 second holds 4: Mini squats 3x10 5: Sidestepping at Hoist with 1 plate plus 2 round 1x10 each direction 6: Retro walking at Hoist 1x10 7: Seated piriformis stretch 3x30 seconds B 8: Quadruped alt arm lifts 1x10 B (verbal cues for technique to not rotate at pelvis.) Skilled Intervention: Patient was educated in proper exercise technique and purpose for exercises. Skilled judgment was provided in selection of appropriate interventions. Correct performance of therapeutic exercises was facilitated with verbal and visual cuing. Neuromuscular Re-Education: 1: MET for leg length discrepency ( LLE bent on table, RLE off edge of table squeezing in as LLE pushes into table) 5 second holds x 5 rounds. Skilled Intervention: Skilled judgment used to assess appropriate program for balance and coordination activity. Billing Therapeutic Exercise Treatment Minutes: 40 Neuromuscular Re-Education Treatment Minutes: 2 Skilled Treatment Time Minutes (timed and untimed codes): 42 Total Session Time (minutes): 42 Session Start Time : 1757 Session Stop Time : 0 Bernie Gustafson, SEWING MACHINE OPERATOR ZIPPER Rimma Fuentes, PT [facility] 01-06-2023 Note HNO ID: [id number] Author: Chang Tom APRN.CELLAR PACKER Service: ? Author Type: Nurse Practitioner Type: Progress Notes Filed: 01/06/2023 4:19 PM Note Text: FOLLOW UP - PSYCHIATRIC PROGRESS NOTE Visit Type:Virtual Visit utilizing two-way audio and video for at least a portion of the visit. Consent for virtual visit obtained verbally. Confidentiality limitations with virtual visits reviewed with the patient and guardian, if present, who have accepted the risk verbally prior to proceeding with encounter. I have communicated my name and active licensure. The patient's identity and physical location were verified at the time of this visit. Either the patient or their legal patient care representative has been informed of the risks and benefits of -- and alternatives to -- treatment through a remote evaluation and consents to proceed with the evaluation remotely. Reason for Visit: Outpatient follow-up and safety monitoring of previously prescribed psychiatric medication, psychotherapy or other treatment CC: Medication Management This is a follow up. HPI: Patient is here for a follow up for Posttraumatic Stress Disorder, Generalized Anxiety Disorder, MDD, recurrent, moderate, eating disorder, restrict, in remission and sleep disturbances. Started Lamictal in October. Has happier moments, less attitude and grumpiness. Denies anxiety. Still has some anger outbursts and patient is requesting an increase in Lamictal. Ribbing Machine Operator agrees. Patient thinks she may have ADHD. Will refer outside of [facility]. Patient states she spaces out. Difficult time focusing and completing tasks. At times, hyper focused. Loses phone often. Memory fluctuates. Has an upcoming appointment with sleep center in March. Has a difficult time falling asleep and then sleeping too much. Denies side effects to medication. In PT for back pain. Started overeating, then not eating. Denies restricting. Patient looking into starting therapy at the same organization her mother attends. Past Meds: Zoloft - deeper depression BF Ever present during interview (provides collaborating information) Risks and benefits of the medication, including any black box warnings, were discussed with the patient. Interval Progress: Improved PATIENT DATA: Generalized Anxiety Disorder Scale (SOTO-7) SOTO - 7 SCORES 09/21/2022 11/13/2022 01/04/2023 SOTO-7 Score 14 16 20 (0-4) minimal anxiety, (5-9) mild anxiety, (10-14) moderate anxiety, (15-21) severe anxiety Patient Health Questionnaire (PHQ-9) PHQ-9 11/13/2022 11/29/2022 01/04/2023 Score 10 12 13 (0-4) minimal depression, (5-9) mild depression, (10-14) moderate depression, (15-19) moderately severe depression, (20-27) severe depression PROMIS Global Health PROMIS Global Health - (T-Scores - the mean of general population = 50. Five points is a clinically meaningful difference.) 05/20/2022 08/16/2022 11/13/2022 Physical T-Score 32.4 29.6 37.4 Mental T-Score 41.1 28.4 33.8 Generalized Anxiety Disorder Scale (SOOT-7) SOTO - 7 SCORES 09/21/2022 11/13/2022 01/04/2023 SOTO-7 Score 14 16 20 (0-4) minimal anxiety, (5-9) mild anxiety, (10-14) moderate anxiety, (15-21) severe anxiety Patient Health Questionnaire (PHQ-9) PHQ-9 11/13/2022 11/29/2022 01/04/2023 Score 10 12 13 (0-4) minimal depression, (5-9) mild depression, (10-14) moderate depression, (15-19) moderately severe depression, (20-27) severe depression PAST MEDICAL HISTORY Diagnosis Date Anxiety with depression 12/05/2020 Chronic bilateral low back pain without sciatica 07/16/2021 SOTO (generalized anxiety disorder) Overweight (BMI 25.0-29.9) 07/16/2021 Sleep disturbance 12/05/2020 No past surgical history on file. Current Outpatient Medications Medication Sig Dispense Refill lamoTRIgine (LAMICTAL) 25 mg tablet Take 1 tablet by mouth once daily. For 14 days then increase to 2 tablets for 14 days 42 tablet 0 venlafaxine ER (EFFEXOR XR) 150 mg 24 hr capsule Take 1 capsule by mouth once daily. 90 capsule 1 lamoTRIgine (LAMICTAL) 100 mg tablet Take 1 tablet by mouth once daily. 30 tablet 2 Mefenamic Acid 250 mg cap Take 1 capsule by mouth every 6 hours as needed. 30 capsule 6 No current facility-administered medications for this visit. ROS: GENERAL: Negative for malaise, significant weight loss and fever. HEENT: No changes in hearing or vision, no nose bleeds or other nasal problems. RESPIRATORY: Negative for cough, wheezing and shortness of breath. CARDIOVASCULAR: Negative for chest pain, leg swelling and palpitations. GI: Negative for abdominal discomfort, blood in stools or black stools. : Negative for dysuria, frequency and incontinence. MUSCULOSKELETAL: Negative for joint pain or swelling, back pain, and muscle pain. SKIN: Negative for lesions, rash, and itching. HEMATOLOGY/LYMPHOLOGY Negative for prolonged bleeding, bruising easily, and swollen nodes. ENDOCRINE: Negative for cold or heat intolerance, mey (more content not included)... [facility] 01-04-2023 Note HNO ID: [id number] Author: Rimma Fuentes PT Service: ? Author Type: Physical Therapist Type: Progress Notes Filed: 01/04/2023 8:09 PM Note Text: Episode Visit Count: 4 Therapist That Will Accept/Oversee The Plan Of Care: Rimma Fuentes Start of Care Date: 12/07/22 Onset Date: (4-5 years ago) Plan of Care Certification Date: 12/07/22 Next Certification Due Date: 02/06/23 Patient Identified by Name and Date of : Yes REHABILITATION AND SPORTS THERAPY PHYSICAL THERAPY TREATMENT NOTE ASSESSMENT: Esha Francois tolerated the session with fatigue and expected muscle soreness. She demonstrated difficulty with squats, but improved after cues given. The patient will continue to benefit from ongoing skilled physical therapy to progress toward set goals. PLAN FOR NEXT VISIT: Continue with core strengthening, possibly use Hoist machine. SUBJECTIVE: Pt reports that her back is hurting today. Pt reports that she was able to complete her exercises 1 day since last visit. Pt reports that exercises are helping with the pain. Pain: Pain Pain Level: (6.5/10) Pain Location: Low Back/Lumbar Spine - Right, Low Back/Lumbar Spine - Left, Buttocks - Right, Buttocks - Left Description: Aching, Stabbing Frequency: Continuous, Intermittent (numbness, tingling are intermittent) Post Treatment Pain Post Treatment Pain Location: Low Back/Lumbar Spine - Right, Low Back/Lumbar Spine - Left OBJECTIVE MEASURES WITH LEVEL OF FUNCTION: Improved posture with use of lumbar towel roll. TREATMENT: Therapeutic Exercise: 1: Upright bike x 5 minutes. (1:1 throughout. Discussed HEP.) 2: Seated isometric abdominals 2x10 with 5 second holds 3: Seated isometric abdominals with alt UE 3x10 B 4: Seated isometric abdominals with alt marching 3x10 B (with lumbar towel roll) 5: Seated isometric abdominals with alt UE with opposite alt marching 3x10 B (with lumbar towel roll) 6: Seated pushing into 55 cm physioball with TA activation 2x10 7: Seated pushing into 55 cm physioball with TA activation 2x10 with 10 second holds 8: Mini squats 2x10 (cus for technique) 9: QL stretch 3x30 seconds L 10: Seated piriformis stretch 3x30 seconds B Skilled Intervention: Patient was educated in proper exercise technique and purpose for exercises. Skilled judgment was provided in selection of appropriate interventions. Correct performance of therapeutic exercises was facilitated with verbal and visual cuing. Billing Therapeutic Exercise Treatment Minutes: 38 Skilled Treatment Time Minutes (timed and untimed codes): 38 Total Session Time (minutes): 38 Session Start Time : 1801 Session Stop Time : 1839 Bernie Gustafson, CLIFFORD Fuentes, PT [facility] 01-04-2023 History of Presen t illness Narrative Episode Visit Count: 4 Therapist That Will Accept/Oversee The Plan Of Care: Rimma Fuentes Start of Care Date: 12/07/22 Onset Date: (4-5 years ago) Plan of Care Certification Date: 12/07/22 Next Certification Due Date: 02/06/23 Patient Identified by Name and Date of : Yes REHABILITATION AND SPORTS THERAPY PHYSICAL THERAPY TREATMENT NOTE ASSESSMENT: Esha Francois tolerated the session with fatigue and expected muscle soreness. She demonstrated difficulty with squats, but improved after cues given. The patient will continue to benefit from ongoing skilled physical therapy to progress toward set goals. PLAN FOR NEXT VISIT: Continue with core strengthening, possibly use Hoist machine. SUBJECTIVE: Pt reports that her back is hurting today. Pt reports that she was able to complete her exercises 1 day since last visit. Pt reports that exercises are helping with the pain. Pain: Pain Pain Level: (6.5/10) Pain Location: Low Back/Lumbar Spine - Right, Low Back/Lumbar Spine - Left, Buttocks - Right, Buttocks - Left Description: Aching, Stabbing Frequency: Continuous, Intermittent (numbness, tingling are intermittent) Post Treatment Pain Post Treatment Pain Location: Low Back/Lumbar Spine - Right, Low Back/Lumbar Spine - Left OBJECTIVE MEASURES WITH LEVEL OF FUNCTION: Improved posture with use of lumbar towel roll. TREATMENT: Therapeutic Exercise: 1: Upright bike x 5 minutes. (1:1 throughout. Discussed HEP.) 2: Seated isometric abdominals 2x10 with 5 second holds 3: Seated isometric abdominals with alt UE 3x10 B 4: Seated isometric abdominals with alt marching 3x10 B (with lumbar towel roll) 5: Seated isometric abdominals with alt UE with opposite alt marching 3x10 B (with lumbar towel roll) 6: Seated pushing into 55 cm physioball with TA activation 2x10 7: Seated pushing into 55 cm physioball with TA activation 2x10 with 10 second holds 8: Mini squats 2x10 (cus for technique) 9: QL stretch 3x30 seconds L 10: Seated piriformis stretch 3x30 seconds B Skilled Intervention: Patient was educated in proper exercise technique and purpose for exercises. Skilled judgment was provided in selection of appropriate interventions. Correct performance of therapeutic exercises was facilitated with verbal and visual cuing. Billing Therapeutic Exercise Treatment Minutes: 38 Skilled Treatment Time Minutes (timed and untimed codes): 38 Total Session Time (minutes): 38 Session Start Time : 1801 Session Stop Time : 1839 Bernie Gustafson, CLIFFORD Fuentes PT documented in this encounter [facility] 12-30-2022 Note HNO ID: [id number] Author: Rod Prince PT Service: ? Author Type: Physical Therapist Type: Progress Notes Filed: 12/31/2022 12:23 AM Note Text: Episode Visit Count: 3 Therapist That Will Accept/Oversee The Plan Of Care: Rimma Fuentes Start of Care Date: 12/07/22 Onset Date: (4-5 years ago) Plan of Care Certification Date: 12/07/22 Next Certification Due Date: 02/06/23 Patient Identified by Name and Date of : Yes REHABILITATION AND SPORTS THERAPY PHYSICAL THERAPY TREATMENT NOTE ASSESSMENT: Esha Francois tolerated the session with fatigue and decreased symptoms. She demonstrated difficulty with technique with mini squats. The patient will continue to benefit from ongoing skilled physical therapy to progress toward set goals. PLAN FOR NEXT VISIT: Asses response to Pallof's press and stir the pot. Continue with core stabilization and strengthening. Possibly try using physioball. SUBJECTIVE: Pt reports that she is having the same pain as always. Pt states that she was alittle sore after last session the next morning, but nothing too bad. Pt [place]. Pt only able to complete HEP 1x yesterday. Pain: Pain Pain Level: 6 Pain Location: Low Back/Lumbar Spine - Right, Low Back/Lumbar Spine - Left, Buttocks - Right, Buttocks - Left Description: Aching, Stabbing Frequency: Continuous, Intermittent (numbness, tingling are intermittent) Post Treatment Pain Post Treatment Pain Level: Better (3.5/10) Post Treatment Pain Location: Low Back/Lumbar Spine - Right, Low Back/Lumbar Spine - Left OBJECTIVE MEASURES WITH LEVEL OF FUNCTION: TREATMENT: Therapeutic Exercise: 1: Upright bike x 5 minutes. (1:1 throughout. Discussed HEP.) 2: Seated isometric abdominals 2x10 with 5 second holds (with lumbar towel roll) 3: Seated isometric abdominals with alt UE 3x10 B (with lumbar towel roll) 4: Seated isometric abdominals with alt marching 3x10 B (with lumbar towel roll) 5: Seated isometric abdominals with alt UE with opposite alt marching 3x10 B (with lumbar towel roll) 6: QL stretch 3x30 seconds L 7: Mini squats 2x10 (verbal and visual cueing for technique) 8: Seated chops woth 7# med ball 2x10 (with lumbar towel roll) 9: Standing stir the pot wiht pink theraband 2x10 CW and CCW facing each direction 10: Standing Pallof's press with pink theraband 2x10 facing each direction Skilled Intervention: Patient was educated in proper exercise technique and purpose for exercises. Skilled judgment was provided in selection of appropriate interventions. Correct performance of therapeutic exercises was facilitated with verbal and visual cuing. Billing Therapeutic Exercise Treatment Minutes: 39 Skilled Treatment Time Minutes (timed and untimed codes): 39 Total Session Time (minutes): 39 Session Start Time : 1706 Session Stop Time : 1745 Bernie Gustafson, SEWING MACHINE OPERATOR ZIPPER Rod Prince, PT [facility] 12-30-2022 History of Presen t illness Narrative Episode Visit Count: 3 Therapist That Will Accept/Oversee The Plan Of Care: Rimma Fuentes Start of Care Date: 12/07/22 Onset Date: (4-5 years ago) Plan of Care Certification Date: 12/07/22 Next Certification Due Date: 02/06/23 Patient Identified by Name and Date of : Yes REHABILITATION AND SPORTS THERAPY PHYSICAL THERAPY TREATMENT NOTE ASSESSMENT: Esha Francois tolerated the session with fatigue and decreased symptoms. She demonstrated difficulty with technique with mini squats. The patient will continue to benefit from ongoing skilled physical therapy to progress toward set goals. PLAN FOR NEXT VISIT: Asses response to Pallof's press and stir the pot. Continue with core stabilization and strengthening. Possibly try using physioball. SUBJECTIVE: Pt reports that she is having the same pain as always. Pt states that she was alittle sore after last session the next morning, but nothing too bad. Pt states [place]. Pt only able to complete HEP 1x yesterday. Pain: Pain Pain Level: 6 Pain Location: Low Back/Lumbar Spine - Right, Low Back/Lumbar Spine - Left, Buttocks - Right, Buttocks - Left Description: Aching, Stabbing Frequency: Continuous, Intermittent (numbness, tingling are intermittent) Post Treatment Pain Post Treatment Pain Level: Better (3.5/10) Post Treatment Pain Location: Low Back/Lumbar Spine - Right, Low Back/Lumbar Spine - Left OBJECTIVE MEASURES WITH LEVEL OF FUNCTION: TREATMENT: Therapeutic Exercise: 1: Upright bike x 5 minutes. (1:1 throughout. Discussed HEP.) 2: Seated isometric abdominals 2x10 with 5 second holds (with lumbar towel roll) 3: Seated isometric abdominals with alt UE 3x10 B (with lumbar towel roll) 4: Seated isometric abdominals with alt marching 3x10 B (with lumbar towel roll) 5: Seated isometric abdominals with alt UE with opposite alt marching 3x10 B (with lumbar towel roll) 6: QL stretch 3x30 seconds L 7: Mini squats 2x10 (verbal and visual cueing for technique) 8: Seated chops woth 7# med ball 2x10 (with lumbar towel roll) 9: Standing stir the pot wiht pink theraband 2x10 CW and CCW facing each direction 10: Standing Pallof's press with pink theraband 2x10 facing each direction Skilled Intervention: Patient was educated in proper exercise technique and purpose for exercises. Skilled judgment was provided in selection of appropriate interventions. Correct performance of therapeutic exercises was facilitated with verbal and visual cuing. Billing Therapeutic Exercise Treatment Minutes: 39 Skilled Treatment Time Minutes (timed and untimed codes): 39 Total Session Time (minutes): 39 Session Start Time : 1706 Session Stop Time : 1745 CLIFFORD Mulligan PT documented in this encounter [facility] 12-28-2022 Note HNO ID: [id number] Author: Rimma Fuentes PT Service: ? Author Type: Physical Therapist Type: Progress Notes Filed: 12/28/2022 7:34 PM Note Text: Episode Visit Count: 2 Therapist That Will Accept/Oversee The Plan Of Care: Rimma Fuentes Start of Care Date: 12/07/22 Onset Date: (4-5 years ago) Plan of Care Certification Date: 12/07/22 Next Certification Due Date: 02/06/23 Patient Identified by Name and Date of : Yes REHABILITATION AND SPORTS THERAPY PHYSICAL THERAPY TREATMENT NOTE ASSESSMENT: Esha Francois tolerated the session with decreased symptoms. She demonstrated improvements in endurance with core stabilization strengthening. The patient will continue to benefit from ongoing skilled physical therapy to progress toward set goals. PLAN FOR NEXT VISIT: Mini squats. Progress seated exercises for ease of pt to complete HEP. SUBJECTIVE: Pt reports that she was playing basketball prior to therapy and she is a little sore. Pt states soreness in B knees and L low back. Pt unable to complete HEP consistently or at all due to her sleep disorder. Pain: Pain Pain Level: 5 Pain Location: Low Back/Lumbar Spine - Right, Low Back/Lumbar Spine - Left, Buttocks - Right, Buttocks - Left Description: Aching, Stabbing, Numbness, Tingling Frequency: Continuous, Intermittent (numbness, tingling are intermittent) Post Treatment Pain Post Treatment Pain Level: 3 Post Treatment Pain Location: Low Back/Lumbar Spine - Right, Low Back/Lumbar Spine - Left OBJECTIVE MEASURES WITH LEVEL OF FUNCTION: Improved posture with lumbar towel roll. TREATMENT: Therapeutic Exercise: 1: SKC stretches 3x30 seconds B 2: Hooklying LTR 2x10 B 3: gluteal sets 5 sec holds 2 x 10 4: bridging x 10 5: *Seated isometric abdominals 2x10 with 5 second holds 6: *Seated isometric abdominals wiht alt UE 2x10 B 7: *Seated isometric abdominals with alt marching 2x10 B 8: *QL stretch 3x30 seconds L Skilled Intervention: Patient was educated in proper exercise technique and purpose for exercises. Reviewed and educated patient on additions/changes for home exercise program as above (*). Skilled judgment was provided in selection of appropriate interventions. Provided written instruction for home exercise program to facilitate proper performance and compliance. Correct performance of therapeutic exercises was facilitated with verbal and visual cuing. Billing Therapeutic Exercise Treatment Minutes: 45 Skilled Treatment Time Minutes (timed and untimed codes): 45 Total Session Time (minutes): 45 Session Start Time : 0600 Session Stop Time : 0645 Bernie Gustafson, CLIFFORD Fuentes PT [facility] 12-28-2022 History of Presen t illness Narrative Episode Visit Count: 2 Therapist That Will Accept/Oversee The Plan Of Care: Rimma Fuentes Start of Care Date: 12/07/22 Onset Date: (4-5 years ago) Plan of Care Certification Date: 12/07/22 Next Certification Due Date: 02/06/23 Patient Identified by Name and Date of : Yes REHABILITATION AND SPORTS THERAPY PHYSICAL THERAPY TREATMENT NOTE ASSESSMENT: Esha Francois tolerated the session with decreased symptoms. She demonstrated improvements in endurance with core stabilization strengthening. The patient will continue to benefit from ongoing skilled physical therapy to progress toward set goals. PLAN FOR NEXT VISIT: Mini squats. Progress seated exercises for ease of pt to complete HEP. SUBJECTIVE: Pt reports that she was playing basketball prior to therapy and she is a little sore. Pt states soreness in B knees and L low back. Pt unable to complete HEP consistently or at all due to her sleep disorder. Pain: Pain Pain Level: 5 Pain Location: Low Back/Lumbar Spine - Right, Low Back/Lumbar Spine - Left, Buttocks - Right, Buttocks - Left Description: Aching, Stabbing, Numbness, Tingling Frequency: Continuous, Intermittent (numbness, tingling are intermittent) Post Treatment Pain Post Treatment Pain Level: 3 Post Treatment Pain Location: Low Back/Lumbar Spine - Right, Low Back/Lumbar Spine - Left OBJECTIVE MEASURES WITH LEVEL OF FUNCTION: Improved posture with lumbar towel roll. TREATMENT: Therapeutic Exercise: 1: SKC stretches 3x30 seconds B 2: Hooklying LTR 2x10 B 3: gluteal sets 5 sec holds 2 x 10 4: bridging x 10 5: *Seated isometric abdominals 2x10 with 5 second holds 6: *Seated isometric abdominals wiht alt UE 2x10 B 7: *Seated isometric abdominals with alt marching 2x10 B 8: *QL stretch 3x30 seconds L Skilled Intervention: Patient was educated in proper exercise technique and purpose for exercises. Reviewed and educated patient on additions/changes for home exercise program as above (*). Skilled judgment was provided in selection of appropriate interventions. Provided written instruction for home exercise program to facilitate proper performance and compliance. Correct performance of therapeutic exercises was facilitated with verbal and visual cuing. Billing Therapeutic Exercise Treatment Minutes: 45 Skilled Treatment Time Minutes (timed and untimed codes): 45 Total Session Time (minutes): 45 Session Start Time : 0600 Session Stop Time : 0645 Bernie SofyCLIFFORD greco PT documented in this encounter [facility] 12-10-2022 Instructions Susanna Barriga MD - 12/10/2022 5:41 PM EDT Please schedule w/ Dr. Genny Hdez of Behavioral Sleep Medicine Appointments: [phone] documented in this encounter [facility] 12-09-2022 Note HNO ID: [id number] Author: Susanna Barriga MD Service: ? Author Type: Physician Type: Progress Notes Filed: 12/10/2022 5:42 PM Note Text: [facility] Follow up/ Established patient visit December 09, 2022 11:32 AM Esha is seen via a virtual Distance Health visit today with the patient's verbal consent. The visit is conducted synchronously in real-time. I have communicated my name and active licensure. The patient's identity and physical location were verified at the time of this visit. Either the patient or their legal patient care representative has been informed of the risks and benefits of -- and alternatives to -- treatment through a remote evaluation and consents to proceed with the evaluation remotely. Date of last visit : 08/17/2022 Clinical Course (copied from last note and updated as needed): Initial presentation to sleep medicine: 04/07/21 Presenting complaints: excessive daytime sleepiness Initial impression: EDS with family history of narcolepsy (Dad, Aunt, ?grandma) Co-morbid conditions: anxiety, depression Clinical course: Testing/studies: 04/29/21: PSG: XIA=454 min, 81.4% efficiency, CLARISA 48.5min, REM latency 334 min, 0% supine, 4.3% REM, arousal index 16.4 -Snoring, Total AHI=0.4, RDI=4.6, 99.3% of sleep with ETCO2 >50mmHg and 60.5% with ETCO2 >55mmHg, wake EtCO2 49 mmHg -tested positive for COVID-19 2 days after sleep study 05/14/21 visit: reports only awake 5 hr per day, sleep attacks. Does smoke cigarettes and vapes. Tested + for COVID 2 days after psg but denied SOB cough wheeze or chest tightness Assessment/plan: 20 yo F followed in sleep clinic for hypersomnolence/excessive daytime sleepiness (EDS). PSG was negative for GRAYSON but demonstrated hypoventilation/hypercapnia during wakefulness and sleep of unclear etiology. I reviewed the raw data today and agree, it shows appropriate EtCO2 waveform during wake and sleep with EtCO2 typically 50 mmHg awake and mostly 50-55 mmHg during sleep, though sometime higher. Unclear etiology. No known lung disorder, neurologic or neuromuscular disorder. Of note, patient does vape and patient did test positive for COVID on 05/01/21 when sleep study was performed overnight from 04/29-04/30/21. Discussed how hypercapnia can cause fatigue, drowsiness, brain fog. Would like pulm eval. Next step after pulm eval and treatment would be hypersomnolence workup. Would need to wean effexor which is a REM suppressing medication. Recommend starting to talk to prescribing provider now so there is plan in place for wean. Then consider hypersomnolence testing over spring or summer break. This will require actigraphy and sleep log, psg with etco2 and tco2, mslt, UDS. 08/17/2022 Visit: seen by pulm now MIPS/MEPS concern for neuromusc cause so seen by neuro and nothing found on exam or labs. Still reporting excessive daytime sleepiness (EDS) reported sleeping up to 16 ht at a time, but also reporting she think she is bipolar as sometimes she is too energetic and can't sleep at times with insane mood swings . Family hx bipolar. PLAN: pyschiatry referral, actigraphy to better characterize sleep/wake habits, labs per pt request. NOTE: any future Psg to have etco2 and tco2 to eval for hypoventilation which can contribute to fatigue. Note: habitual vaping and dx with COVID 2 days after last PSG Interval history : Here for follow up for actigraphy results Since last visit saw psychiatry which went good . Dx PTSD w/ bipolar tendencies. Started lamictal, has been on it almost 1 month and helping a bit. Will increase dose. Thinks med helps her wake up more. Sleep is the same but slightly better than before, will go to bed 2-3a now and wakes sometimes early or sometimes at 3p. She has no daytime commitments -work or school - but babysits niece once or twice week in the morning. Napping - reports napping a lot. Yesterday took more naps due to period cramps. Thinks she sleeps on average 50% of the day, 12 per day. Average Bedtime 2:02AM, with a range of 10:28PM to 5:34AM Average Wake time 12:18PM , with a range of 6:00AM to 6:17PM Average Total Sleep Time 8.1 hrs (range of 2.9 to 12 hrs) Significant Variability in Sleep-Wake Schedule Yes Days with Naps None but several days of low level activity that could be napping Average Nap Duration N/a Circadian Rhythm delayed. Procedure: Actigraphy (CPT code 93425) Reason for study: circadian rhythm sleep disorder and excessive daytime sleepiness-no MSLT planned Length of study: This study was performed for: 2 weeks Dates of Actigraphy study: From 09/03/2022 To 09/16/2022 Technical quality of the recording: An Actigraphy GTX was used for this study. There were no apparent technical issues with the recording. All data were used in sleep scoring and analysis Using the Wilbert Kripke algorithm, data was extrapolated manually to determine sleep episodes. 1. Recorded (more content not included)... [facility] 12-09-2022 History of Presen t illness Narrative Images from the original note were not included. [facility] Follow up/ Established patient visit December 09, 2022 11:32 AM Esha is seen via a virtual Distance Health visit today with the patient's verbal consent. The visit is conducted synchronously in real-time. I have communicated my name and active licensure. The patient's identity and physical location were verified at the time of this visit. Either the patient or their legal patient care representative has been informed of the risks and benefits of -- and alternatives to -- treatment through a remote evaluation and consents to proceed with the evaluation remotely. Date of last visit : 08/17/2022 Clinical Course (copied from last note and updated as needed): Initial presentation to sleep medicine: 04/07/21 Presenting complaints: excessive daytime sleepiness Initial impression: EDS with family history of narcolepsy (Dad, Aunt, ?grandma) Co-morbid conditions: anxiety, depression Clinical course: Testing/studies: 04/29/21: PSG: QIS=737 min, 81.4% efficiency, CLARISA 48.5min, REM latency 334 min, 0% supine, 4.3% REM, arousal index 16.4 -Snoring, Total AHI=0.4, RDI=4.6, 99.3% of sleep with ETCO2 >50mmHg and 60.5% with ETCO2 >55mmHg, wake EtCO2 49 mmHg -tested positive for COVID-19 2 days after sleep study 05/14/21 visit: reports only awake 5 hr per day, sleep attacks. Does smoke cigarettes and vapes. Tested + for COVID 2 days after psg but denied SOB cough wheeze or chest tightness Assessment/plan: 20 yo F followed in sleep clinic for hypersomnolence/excessive daytime sleepiness (EDS). PSG was negative for GRAYSON but demonstrated hypoventilation/hypercapnia during wakefulness and sleep of unclear etiology. I reviewed the raw data today and agree, it shows appropriate EtCO2 waveform during wake and sleep with EtCO2 typically 50 mmHg awake and mostly 50-55 mmHg during sleep, though sometime higher. Unclear etiology. No known lung disorder, neurologic or neuromuscular disorder. Of note, patient does vape and patient did test positive for COVID on 05/01/21 when sleep study was performed overnight from 04/29-04/30/21. Discussed how hypercapnia can cause fatigue, drowsiness, brain fog. Would like pulm eval. Next step after pulm eval and treatment would be hypersomnolence workup. Would need to wean effexor which is a REM suppressing medication. Recommend starting to talk to prescribing provider now so there is plan in place for wean. Then consider hypersomnolence testing over spring or summer break. This will require actigraphy and sleep log, psg with etco2 and tco2, mslt, UDS. 08/17/2022 Visit: seen by pulm now MIPS/MEPS concern for neuromusc cause so seen by neuro and nothing found on exam or labs. Still reporting excessive daytime sleepiness (EDS) reported sleeping up to 16 ht at a time, but also reporting she think she is bipolar as sometimes she is too energetic and can't sleep at times with insane mood swings . Family hx bipolar. PLAN: pyschiatry referral, actigraphy to better characterize sleep/wake habits, labs per pt request. NOTE: any future Psg to have etco2 and tco2 to eval for hypoventilation which can contribute to fatigue. Note: habitual vaping and dx with COVID 2 days after last PSG Interval history : Here for follow up for actigraphy results Since last visit saw psychiatry which went good . Dx PTSD w/ bipolar tendencies. Started lamictal, has been on it almost 1 month and helping a bit. Will increase dose. Thinks med helps her wake up more. Sleep is the same but slightly better than before, will go to bed 2-3a now and wakes sometimes early or sometimes at 3p. She has no daytime commitments -work or school - but babysits niece once or twice week in the morning. Napping - reports napping a lot. Yesterday took more naps due to period cramps. Thinks she sleeps on average 50% of the day, 12 per day. Average Bedtime 2:02AM, with a range of 10:28PM to 5:34AM Average Wake time 12:18PM , with a range of 6:00AM to 6:17PM Average Total Sleep Time 8.1 hrs (range of 2.9 to 12 hrs) Significant Variability in Sleep-Wake Schedule Yes Days with Naps None but several days of low level activity that could be napping Average Nap Duration N/a Circadian Rhythm delayed. Procedure: Actigraphy (CPT code 92632) Reason for study: circadian rhythm sleep disorder and excessive daytime sleepiness-no MSLT planned Length of study: This study was performed for: 2 weeks Dates of Actigraphy study: From 09/03/2022 To 09/16/2022 Technical quality of the recording: An Actigraphy GTX was used for this study. There were no apparent technical issues with the recording. All data were used in sleep scoring and analysis Using the Wilbert Kripke algorithm, data was extrapolated manually to determine sleep episodes. 1. Recorded variables extrapolated from the Actigraphy and sleep log a. Bedtime (Clock time attempted to fall asleep based on actigraphy log) b. Wake time: Clock time of final awakening in the morning based on actigraphy (reported In hours or minutes). For most individuals, this will take place at night; however, For some (e.g., shift workers) it may not. c. Time in bed (TIB): Duration between reported bedtime and wake time 2. Actigraphy variables a. Sleep onset: Clock time individual fell asleep as determined by the actigraph based on the sleep-scoring algorithm or hand-scoring rules. b. Sleep offset: Clock time individual woke up as determined by the actigraph based on the sleep-scoring algorithm or hand-scoring rules. c. Sleep period: Duration between sleep onset and sleep offset (reported in hours or minutes). d. Total sleep time (TST): Duration of sleep during the major sleep period (reported in hours or minutes). e. Total wake time (TWT): Duration of wake during the major sleep period (reported in hours or minutes). The sum of TST and TWT should equal the sleep period. f. Sleep efficiency (SE) or sleep percent: There are a number of ways in which SE is computed, and it differs across devices; however, the variable of interest is the proportion of time the patient is asleep out of the total time in bed. Sleep efficiency should technically only be calculated when reported variables are available (providing the TIB). Sleep percent, on the other hand, provides the percent of time the individual is asleep during the actigraphically scored in-bed period. Interpretation: The actigraphy recording spans 14 days including 4 weekend days. Sleep diary was obtained along this recording, but Pt only filled out 1 day (which did not match with actigraphy) Bedtimes and wake-up times were determined from the sleep diary/automatic rest periods. Bedtimes were not regular for the majority of the recording with an average bedtime of 2:02AM, with a range of 10:28PM to 5:34AM. Wake up times were not regular for the majority of recording with the average wake up time of 12:18PM , with a range of 6:00AM to 6:17PM. Patient had an averaged sleep time of 8.1 hours per night (with a range of 2.9 hrs to 12 hrs). Estimated sleep efficiency was reduced ( 79 %). Activity was increased during the rest period and WASO time was 121 minutes on average. Naps were not recorded. There were periods of low level activity observed on 09/04, 09/06, 09/11, 09/12, 09/14, 09/15. Patient did not indicate napping on sleep diary. Clinical correlation is advised. The circadian rhythm appears delayed. 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 PATIENT-ENTERED QUESTIONNAIRE SLEEP SCORES Sleep Questions 12/05/2022 Reason for visit: Excessive daytime sleepiness Average hours slept in 24 hours: - Accidents or near accidents due to drowsy drivin [place] Sleepiness Scale 05/19/2021 08/16/2022 12/05/2022 Score 19 (severe daytime sleepiness) 15 (present daytime sleepiness) 13 (present daytime sleepiness) PROMIS CAT Sleep Disturbance 02/16/2022 08/16/2022 11/29/2022 PROMIS Sleep Disturbance T-Score 63 (moderate) 66 (moderate) 69 (moderate) PROMIS Sleep Disturbance Percentile 10 % 5 % 3 % Insomnia Severity Index 08/16/2022 12/05/2022 Score 20 19 Restless Leg Syndrome 08/16/2022 12/05/2022 Score 24 23 PHQ-9 09/21/2022 11/13/2022 11/29/2022 Score 12 10 12 PROMIS Global Health - (T-Scores - the mean of general population = 50. Five points is a clinically meaningful difference.) 05/20/2022 08/16/2022 11/13/2022 Physical T-Score 32.4 29.6 37.4 Mental T-Score 41.1 28.4 33.8 PMH, PSH, SH: dx with PTSD w/ bipolar tendencies - per pt SLEEP RELATED ROS General: fatigue and sleepiness Psych: PTSD ALLERGIES No Known Allergies CURRENT MEDICATIONS: lamoTRIgine (LAMICTAL) 25 mg tablet Take 1 tablet by mouth once daily. For 14 days then increase to 2 tablets for 14 days venlafaxine ER (EFFEXOR XR) 150 mg 24 hr capsule Take 1 capsule by mouth once daily. lamoTRIgine (LAMICTAL) 100 mg tablet Take 1 tablet by mouth once daily. Mefenamic Acid 250 mg cap Take 1 capsule by mouth every 6 hours as needed. PHYSICAL EXAMINATION: General: Comfortable, no acute distress, well developed well nourished awake and alert HEENT: normocephalic, atraumatic Lungs: no respiratory distress, normal work of breathing on RA Cardiac: appears well perfused Neuro: answers questions appropriately, no focal deficits IMPRESSION: Circadian rhythm sleep disorder, delayed sleep phase type (primary encounter diagnosis) Disruptions of 24-hour sleep-wake cycle Excessive daytime sleepiness 22 yo F followed in sleep clinic for excessive daytime sleepiness (EDS). Here today for actigraphy results which show significantly delayed sleep onset (likely due to delayed circadian rhythm), considerable variability in sleep/wake timing day to day , considerable variability in sleep duration day to day. PLAN: Refer to behavioral sleep medicine (BSM) to address sleep habits including circadian delay, sleep/wake consistency and keeping consistent schedule. Discussed that sleep/wake timing must be addressed before proceeding w/ hypersomnolence testing, as currently most likely etiology of daytime sleepiness is circadian rhythm delay. If still excessively sleepy when sleeping on a more regular and consistent schedule, consider hypersomnolence testing. Follow up after completing work w/ BSM I spent a total of 20 minutes on the date of the service which included preparing to see the patient, [id number] patient care, completing clinical documentation, obtaining and/or reviewing separately obtained history, performing a medically appropriate examination, counseling and educating the patient/family/caregiver, and communicating results to the patient/family/caregiver. Susanna Barriga MD December 10, 2022. 5:40 PM documented in this encounter [facility] 12-07-2022 Note HNO ID: [id number] Author: Rimma Fuentes PT Service: ? Author Type: Physical Therapist Type: Progress Notes Filed: 12/07/2022 5:31 PM Note Text: Episode Visit Count: 1 Therapist That Will Accept/Oversee The Plan Of Care: Rimma Fuentes Start of Care Date: 12/07/22 Onset Date: (4-5 years ago) Plan of Care Certification Date: 12/07/22 Next Certification Due Date: 02/06/23 Patient Identified by Name and Date of : Yes REHABILITATION AND SPORTS THERAPY PHYSICAL THERAPY EVALUATION PLAN OF CARE: Assessment: Esha Francois presents with diagnosis of strain of lumbar region and leg length inequality that interferes with stair negotiation, walking in the community, bending, sleeping, standing . She presents with impairments in flexibility, overall function, and strength. PROMIS? (Patient-Reported Outcomes Measurement Information System) scores were reviewed and physical function domain and self efficacy domain identified as a rehabilitation concern. Prognosis for therapy is Good due to: current objective clinical presentation, good overall health status, good support system/ coping skills . She will benefit from skilled therapy services to meet the goals established for this plan of care as noted below. Goals for Episode of Care: created on 12/07/22 through 02/06/23 [place] in home exercise program. Patient will decrease pain rating by 2 points to meet minimal clinical important difference for numeric pain rating scale. Patient will demonstrate increase in core, lumbar and pelvic musculature strength to 4+ to 5/5 during manual muscle testing in order to improve function for home management tasks and prior functional tasks. Patient will increase flexibility of hamstrings to 60-70 degrees to improve ability to maintain proper posture, improve mechanics, and decrease pain. Pt will demonstrate symmetrical alignment of pelvis. Pt will demonstrate improved pelvic stability to maintain normal pelvic alignment, improve function, and decrease pain. Perform stair negotiation;walking in the community;bending;sleeping;stand ing; without pain. Improve postural awareness. Normal gait. Reciprocal stair negotiation. Patient Goals: To find things to make it easier at home and to start an exercise program to help me lose weight, but not hurt my back. Planned Interventions, Frequency, and Duration: Current Frequency: 2x/week Duration: 8 weeks Total Number of Visits Planned: 16 Planned Treatment Interventions: Therapeutic exercise (66785), Neuromuscular re-education (67431), Manual therapy (46368), Patient/Family/Caregiver Education PLAN FOR NEXT VISIT: Assess response to HEP. May add stationary bike, mini squats, pelvic tilts, ... Patient demonstrates good understanding of plan of care and treatment. The above goals and plan of care were discussed and agreed upon by patient/family. SUBJECTIVE: Pt reports 4-5 years of low back pain d/t leg length discrepancy. Pain is worse with stairs, sometimes walking a certain way, increased activity.Disturbed sleep (constantly tossing and turning). Pt reports infrequent muscle spasms that will cause her to move her whole upper body. Patient Goals: To find things to make it easier at home and to start an exercise program to help me lose weight, but not hurt my back. Functional Limitations: stair negotiation, walking in the community, bending, sleeping, standing Relevant History Employment: Unemployed Home Environment Home Type: (stairs in home) Intake Information: Prescription present Previous Treatment: (Pt states she tried a heel insert that was somewhat helpful (depended on the day), but pt states it was the wrong kind and she has to get another one.) Spine History Pain is Better Always: Lying (Tylenol sometimes, heating pad) Sleeping Position: Side lying right (frequent change of position) Pain: Pain Pain Level: 7 Pain Location: Low Back/Lumbar Spine - Right, Low Back/Lumbar Spine - Left, Buttocks - Right, Buttocks - Left Description: Aching, Stabbing, Numbness, Tingling Frequency: Continuous, Intermittent (numbness, tingling are intermittent) Post Treatment Pain Post Treatment Pain Level: 4 Post Treatment Pain Location: Low Back/Lumbar Spine - Right, Low Back/Lumbar Spine - Left PROMIS Scales Higher is Better 12/05/2022 11/29/2022 02/25/2022 Phys Func - Score - 37 (moderate dysfunction) - Phys Func - Percentile - 10 % - Self-Eff Symptom - Score 37 (Low) - 32 (Low) Self-Eff Symptom - Percentile 10 % - 4 % T-scores: mean of general population = 50. 5 points is clinically meaningfully difference Percentiles provide an indication of how the patient's score ranks in relation to the general population. Higher percentile rankings indicate better function/quality of life. 50th percentile is the average of the general population and indicates half of respondents had a worse score. OBJECTIVE (more content not included)... [facility] 12-07-2022 History of Presen t illness Narrative Episode Visit Count: 1 Therapist That Will Accept/Oversee The Plan Of Care: Rimma Fuentes Start of Care Date: 12/07/22 Onset Date: (4-5 years ago) Plan of Care Certification Date: 12/07/22 Next Certification Due Date: 02/06/23 Patient Identified by Name and Date of : Yes REHABILITATION AND SPORTS THERAPY PHYSICAL THERAPY EVALUATION PLAN OF CARE: Assessment: Esha Francois presents with diagnosis of strain of lumbar region and leg length inequality that interferes with stair negotiation, walking in the community, bending, sleeping, standing . She presents with impairments in flexibility, overall function, and strength. PROMIS (Patient-Reported Outcomes Measurement Information System) scores were reviewed and physical function domain and self efficacy domain identified as a rehabilitation concern. Prognosis for therapy is Good due to: current objective clinical presentation, good overall health status, good support system/ coping skills . She will benefit from skilled therapy services to meet the goals established for this plan of care as noted below. Goals for Episode of Care: created on 12/07/22 through 02/06/23 [place] in home exercise program. Patient will decrease pain rating by 2 points to meet minimal clinical important difference for numeric pain rating scale. Patient will demonstrate increase in core, lumbar and pelvic musculature strength to 4+ to 5/5 during manual muscle testing in order to improve function for home management tasks and prior functional tasks. Patient will increase flexibility of hamstrings to 60-70 degrees to improve ability to maintain proper posture, improve mechanics, and decrease pain. Pt will demonstrate symmetrical alignment of pelvis. Pt will demonstrate improved pelvic stability to maintain normal pelvic alignment, improve function, and decrease pain. Perform stair negotiation;walking in the community;bending;sleeping;stand ing; without pain. Improve postural awareness. Normal gait. Reciprocal stair negotiation. Patient Goals: To find things to make it easier at home and to start an exercise program to help me lose weight, but not hurt my back. Planned Interventions, Frequency, and Duration: Current Frequency: 2x/week Duration: 8 weeks Total Number of Visits Planned: 16 Planned Treatment Interventions: Therapeutic exercise (35099), Neuromuscular re-education (45478), Manual therapy (49832), Patient/Family/Caregiver Education PLAN FOR NEXT VISIT: Assess response to HEP. May add stationary bike, mini squats, pelvic tilts, ... Patient demonstrates good understanding of plan of care and treatment. The above goals and plan of care were discussed and agreed upon by patient/family. SUBJECTIVE: Pt reports 4-5 years of low back pain d/t leg length discrepancy. Pain is worse with stairs, sometimes walking a certain way, increased activity.Disturbed sleep (constantly tossing and turning). Pt reports infrequent muscle spasms that will cause her to move her whole upper body. Patient Goals: To find things to make it easier at home and to start an exercise program to help me lose weight, but not hurt my back. Functional Limitations: stair negotiation, walking in the community, bending, sleeping, standing Relevant History Employment: Unemployed Home Environment Home Type: (stairs in home) Intake Information: Prescription present Previous Treatment: (Pt states she tried a heel insert that was somewhat helpful (depended on the day), but pt states it was the wrong kind and she has to get another one.) Spine History Pain is Better Always: Lying (Tylenol sometimes, heating pad) Sleeping Position: Side lying right (frequent change of position) Pain: Pain Pain Level: 7 Pain Location: Low Back/Lumbar Spine - Right, Low Back/Lumbar Spine - Left, Buttocks - Right, Buttocks - Left Description: Aching, Stabbing, Numbness, Tingling Frequency: Continuous, Intermittent (numbness, tingling are intermittent) Post Treatment Pain Post Treatment Pain Level: 4 Post Treatment Pain Location: Low Back/Lumbar Spine - Right, Low Back/Lumbar Spine - Left PROMIS Scales Higher is Better 12/05/2022 11/29/2022 02/25/2022 Phys Func - Score - 37 (moderate dysfunction) - Phys Func - Percentile - 10 % - Self-Eff Symptom - Score 37 (Low) - 32 (Low) Self-Eff Symptom - Percentile 10 % - 4 % T-scores: mean of general population = 50. 5 points is clinically meaningfully difference Percentiles provide an indication of how the patient's score ranks in relation to the general population. Higher percentile rankings indicate better function/quality of life. 50th percentile is the average of the general population and indicates half of respondents had a worse score. OBJECTIVE MEASURES WITH LEVEL OF FUNCTION: Posture / Alignment Lumbo - Pelvic Alignment: R PSIS slightly superior to L in prone. LE Observations: 1cm leg length discrepancy (measured greater trochanter to medial malleolus in supine) Spine Observations R Lumbar Spine Palpation Tenderness: PSIS (posterior superior iliac spine), Sacral base, Paraspinals L Lumbar Spine Palpation Tenderness: PSIS (posterior superior iliac spine), Sacral base, Paraspinals Lumbar Spine AROM Lumbar Flexion: (fingertips to toes, with lumbar pain) Lumbar Extension: Normal Lumbar R Side-Bend: (50 deg, lumbar pain) Lumbar L Side-Bend: (45 deg, lumbar pain) LE Flexibility Flexibility: Straight Leg Raise, Comments R SLR Flexibility: 50 deg, L SLR Flexibility: 60 deg, back of knee Flexibility Comments: SKC R 90 deg, L 120 pulling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 with ETCO2 >50mmHg and 60.5% with ETCO2 >55mmHg, wake EtCO2 49 mmHg -tested positive for COVID-19 2 days after sleep study 05/14/21 visit: reports only awake 5 hr per day, sleep attacks. Does smoke cigarettes and vapes. Tested + for COVID 2 days after psg but denied SOB cough wheeze or chest tightness Assessment/plan: 20 yo F followed in sleep clinic for hypersomnolence/excessive daytime sleepiness (EDS). PSG was negative for GRAYSON but demonstrated hypoventilation/hypercapnia during wakefulness and sleep of unclear etiology. I reviewed the raw data today and agree, it shows appropriate EtCO2 waveform during wake and sleep with EtCO2 typically 50 mmHg awake and mostly 50-55 mmHg during sleep, though sometime higher. Unclear etiology. No known lung disorder, neurologic or neuromuscular disorder. Of note, patient does vape and patient did test positive for COVID on 05/01/21 when sleep study was performed overnight from 04/29-04/30/21. Discussed how hypercapnia can cause fatigue, drowsiness, brain fog. Would like pulm eval. Next step after pulm eval and treatment would be hypersomnolence workup. Would need to wean effexor which is a REM suppressing medication. Recommend starting to talk to prescribing provider now so there is plan in place for wean. Then consider hypersomnolence testing over spring or summer break. This will require actigraphy and sleep log, psg with etco2 and tco2, mslt, UDS. Interval history : Here with significant other. Seen by pulm 05/2021 - low MIPS/MEPS concern for neuromusc cause. Refer to neuromusc specialist. Seen by neuro - no clinical weakness - labs and exam WNL, no concern for neuromusc disorder Here for follow up for excessive daytime sleepiness (EDS) Reports sleep and wake times that are all over the place. Stays up all night til 5-10a then initiates sleep and won't wake up til the next day at 2-4 PM. Some days sleeps 16 hr at a time. Some days sleeps 8p til 4-5p the next day. Boyfriend says he works 12 hr shifts and notes Esha will stay up til 5-6a when he leaves, then she goes to sleep 3-4 hr later and sleeps til the following day 4 am or later. She is not in school, she is not working, and she has no daytime commitments Would like to get a job. 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 Pt thinks she has bipolar but has not seen a psychiatrist. boyfriend says she is too energetic and can't sleep at times. Patient notes she has Insane mood swings one minute I am perfectly fine then 10 minutes later I'm crying: Mom with bipolar type 2 and brother has DMDD Effexor taken on waking - per primary care. Will take when she wakes even if she wakes in the afternoon. On effexor at least 2 + years. Cataplexy: reports with laughter she may feel knees weak but does not fall, but also feels weakness with just regular daily activity without any emotional cause she feels she gets weak. She does not fall. Occurs maybe once a month. Sleep paralysis: has occurred a few times. Hallucinations: one time and never again - can't recall more details Sleep fragmentation: denies Sleep attacks: occasional - falls asleep while on phone or texting Daytime sleepiness: yes Vivid dreams: at times says her dreams are really detailed and then says she doesn't recall dreams a lot Driving: not driving - has a lot of anxiety towards thought of driving worried she will fall asleep. Denies marijuana use Vapes -nicotine all throughout the day No cigarettes unless she does not have a vape Etoh - denies [place] Sleepiness Scale: 15 PATIENT-ENTERED QUESTIONNAIRE SLEEP SCORES [place] Sleepiness Scale 05/19/2021 08/16/2022 Score 19 (severe daytime sleepiness) 15 (present daytime sleepiness) PROMIS CAT Sleep Disturbance 02/16/2022 PROMIS Sleep Disturbance T-Score 63 (moderate) PROMIS Sleep Disturbance Percentile 10 % PHQ-9 06/02/2022 06/02/2022 08/16/2022 Score 9 9 11 PROMIS Global Health - (T-Scores - the mean of general population = 50. Five (more content not included)... [facility] 06-05-2022 Note HNO ID: [id number] Author: Kourtney Okeefe APRN.DEIRDRE Service: ? Author Type: Healthcare Administration Internship Type: Progress Notes Filed: 06/05/2022 2:09 PM Note Text: Esha Francois is a 21 year old female who presents for follow up visit from [facility] ED on 05/19/22. Patient seen for lower right quadrant pain. CT scan showed small 2.3 cm right sided ovarian cyst that was ruptured. She was to follow up here in office. Discussed ovarian cysts and starting of OCP for prevention. She declines control options due to not wanting to gain weight and desire for in future. Seen last year in office for irregular cycles but reports cycles are now every 30-34 days lasting 4-5 days. No concerns with cycles. LMP 05/26/22 Director Of Women'S Services History LMP: 12/17/2021 (Exact Date), Having periods Age at Menarche: Age at First : Age at Menopause: Director Of Women'S Services History Comments: Sexual Activity: Yes; No partner data on record Contraception: Condom, None PAST MEDICAL HISTORY Diagnosis Date Anxiety with depression 12/05/2020 Chronic bilateral low back pain without sciatica 07/16/2021 SOTO (generalized anxiety disorder) Overweight (BMI 25.0-29.9) 07/16/2021 Sleep disturbance 12/05/2020 No past surgical history on file. FAMILY HISTORY Problem Relation Age of Onset Narcolepsy Father Social History Tobacco Use Smoking status: Former Types: Cigarettes Smokeless tobacco: Never Tobacco comments: vape Vaping Use Vaping Use: current everyday user Substances: Nicotine, Flavoring Devices: Pre-filled pod Substance Use Topics Alcohol use: Never Drug use: Never Current Outpatient Medications Medication Sig venlafaxine ER (EFFEXOR XR) 75 mg 24 hr capsule Take 1 capsule by mouth once daily. Take along with 150 mg dose venlafaxine ER (EFFEXOR XR) 150 mg 24 hr capsule take 1 capsule by mouth once daily Mefenamic Acid 250 mg cap Take 1 capsule by mouth every 6 hours as needed. No current facility-administered medications for this visit. Allergies As of Date: 06/05/2022 (No Known Allergies) Fully Assessed 03/24/2022 REVIEW OF SYSTEMS Abdomen: No bloating, early satiety, indigestion, or increased flatulence. No abdominal pain, nausea, vomiting, diarrhea, or constipation. Bladder: No dysuria, gross hematuria, urinary frequency, urinary urgency, or incontinence. Breast: No breast lumps, nipple d/c, overlying skin changes, redness or skin retraction. Expanded ROS: N/A Allergies and current medication updated:Yes EXAM: BP 110/70 Wt 173 lb (78.5kg) LMP 05/26/2022 GENERAL: pleasant, female in no apparent distress HEENT: Normocephalic and atraumatic NECK: Supple and full range of motion DERMATOLOGY: Normal, without lesions, and acne on chin and forehead BREAST: deferred CHEST: Normal inspiratory effort ABDOMEN: Deferred PELVIC: deferred BIMANUAL: deferred NEURO: alert and oriented x3,exam grossly non-focal EXTREMITIES: normal ASSESSMENT/PLAN: 1. Ovarian cyst rupture - ICD9: 620.2, ICD10: N83.209 (primary diagnosis) - No current pain or bleeding - Reviewed starting OCP if reoccurring / bothersome 2. Patient desires - ICD9: V26.9, ICD10: Z31.9 - Brief preconception counseling - Patient to start vitamin 3. Other acne - ICD9: 706.1, ICD10: L70.8 - Possible consult to dermatology RTO- as needed Kourtney Okeefe APRN.CNM [facility] 06-05-2022 Instructions Kourtney Okeefe APRN.CNM - 06/05/2022 1:54 PM EST Ibuprofen 600 mg PO every 6 hours as needed for pain documented in this encounter [facility] 06-05-2022 History of Presen t illness Narrative Esha Francois is a 21 year old female who presents for follow up visit from [facility] ED on 05/19/22. Patient seen for lower right quadrant pain. CT scan showed small 2.3 cm right sided ovarian cyst that was ruptured. She was to follow up here in office. Discussed ovarian cysts and starting of OCP for prevention. She declines control options due to not wanting to gain weight and desire for in future. Seen last year in office for irregular cycles but reports cycles are now every 30-34 days lasting 4-5 days. No concerns with cycles. LMP 05/26/22 Director Of Women'S Services History LMP: 12/17/2021 (Exact Date), Having periods Age at Menarche: Age at First : Age at Menopause: Director Of Women'S Services History Comments: Sexual Activity: Yes; No partner data on record Contraception: Condom, None PAST MEDICAL HISTORY Diagnosis Date Anxiety with depression 12/05/2020 Chronic bilateral low back pain without sciatica 07/16/2021 SOTO (generalized anxiety disorder) Overweight (BMI 25.0-29.9) 07/16/2021 Sleep disturbance 12/05/2020 No past surgical history on file. FAMILY HISTORY Problem Relation Age of Onset Narcolepsy Father Social History Tobacco Use Smoking status: Former Types: Cigarettes Smokeless tobacco: Never Tobacco comments: vape Vaping Use Vaping Use: current everyday user Substances: Nicotine, Flavoring Devices: Pre-filled pod Substance Use Topics Alcohol use: Never Drug use: Never Current Outpatient Medications Medication Sig venlafaxine ER (EFFEXOR XR) 75 mg 24 hr capsule Take 1 capsule by mouth once daily. Take along with 150 mg dose venlafaxine ER (EFFEXOR XR) 150 mg 24 hr capsule take 1 capsule by mouth once daily Mefenamic Acid 250 mg cap Take 1 capsule by mouth every 6 hours as needed. No current facility-administered medications for this visit. Allergies As of Date: 06/05/2022 (No Known Allergies) Fully Assessed 03/24/2022 REVIEW OF SYSTEMS Abdomen: No bloating, early satiety, indigestion, or increased flatulence. No abdominal pain, nausea, vomiting, diarrhea, or constipation. Bladder: No dysuria, gross hematuria, urinary frequency, urinary urgency, or incontinence. Breast: No breast lumps, nipple d/c, overlying skin changes, redness or skin retraction. Expanded ROS: N/A Allergies and current medication updated:Yes EXAM: BP 110/70 Wt 173 lb (78.5kg) LMP 05/26/2022 GENERAL: pleasant, female in no apparent distress HEENT: Normocephalic and atraumatic NECK: Supple and full range of motion DERMATOLOGY: Normal, without lesions, and acne on chin and forehead BREAST: deferred CHEST: Normal inspiratory effort ABDOMEN: Deferred PELVIC: deferred BIMANUAL: deferred NEURO: alert and oriented x3,exam grossly non-focal EXTREMITIES: normal ASSESSMENT/PLAN: 1. Ovarian cyst rupture - ICD9: 620.2, ICD10: N83.209 (primary diagnosis) - No current pain or bleeding - Reviewed starting OCP if reoccurring / bothersome 2. Patient desires - ICD9: V26.9, ICD10: Z31.9 - Brief preconception counseling - Patient to start vitamin 3. Other acne - ICD9: 706.1, ICD10: L70.8 - Possible consult to dermatology RTO- as needed Kourtney Okeefe APRN.CNM documented in this encounter [facility] 06-03-2022 Miscellaneous Notes Pt move her self to another 20 min slot. Called and LM that her appt was move from 11:40 to 11:20 to give the proper amount of time for appt. Kelsie Laguerre LPN TC to pt. LM to call office, ask for triage nurse to get results. Pt needs to be rescheduled for 40 min appt. Please assits. Kelsie Laguerre LPN documented in this encounter [facility] 06-02-2022 Miscellaneous Notes Patient returned call and went over my chart message and patient said she had clicked one what ever provider she could get seen sooner. Patient said it was follow up to lab levels. Rescheduled her to 06/03/2022 with Daniela Gaston AUDIO VISUAL TECH. Pt has had 4 no shows in the past 2 months and is currently under review for dismissal. Selma Hoover Ma Patient has appointment this day with Dr. Carlson and it says recheck levels . Patient has not been in for routine labs for 11 months. Will need to follow up with PCP or team for physical. Patient telephoned. Message left to call back regarding appointment this day. Luly Moore LPN documented in this encounter [facility] 04-03-2022 Hospital Discharg e instructions Patient Education 04/03/2022 17:24:39 Abscess, Incision And Drainage Abscess (Incision & Drainage) An abscess is sometimes called a boil. It happens when bacteria get trapped under the skin and start to grow. Pus forms inside the abscess as the body responds to the bacteria. An abscess can happen with an insect bite, ingrown hair, blocked oil gland, pimple, cyst, or puncture wound. Your healthcare provider has drained the pus from your abscess. If the abscess pocket was large, your healthcare provider may have put in gauze packing. Your provider will need to remove it on your next visit. He or she may also replace it at that time. You may not need antibiotics to treat a simple abscess, unless the infection is spreading into the skin around the wound (cellulitis). The wound will take about 1 to 2 weeks to heal, depending on the size of the abscess. Healthy tissue will grow from the bottom and sides of the opening until it seals over. Home care These tips can help your wound heal: The wound may drain for the first 2 days. Cover the wound with a clean dry dressing. Change the dressing if it becomes soaked with blood or pus. If a gauze packing was placed inside the abscess pocket, you may be told to remove it yourself. You may do this in the shower. Once the packing is removed, you should wash the area in the shower, or clean the area as directed by your provider. Continue to do this until the skin opening has closed. Make sure you wash your hands after changing the packing or cleaning the wound. If you were prescribed antibiotics, take them as directed until they are all gone. You may use acetaminophen or ibuprofen to control pain, unless another pain medicine was prescribed. If you have liver disease or ever had a stomach ulcer, talk with your doctor before using these medicines. Follow-up care Follow up with your healthcare provider, or as advised. If a gauze packing was put in your wound, it should be removed in 1 to 2 days. Check your wound every day for any signs that the infection is getting worse. The signs are listed below. When to seek medical advice Call your healthcare provider right away if any of these occur: Increasing redness or swelling Red streaks in the skin leading away from the wound Increasing local pain or swelling Continued pus draining from the wound 2 days after treatment Fever of 100.4 F (38 C) or higher, or as directed by your healthcare provider Boil returns when you are at home [phone] [employer]. [address] [place] [address]. All rights reserved. This information is not intended as a substitute for professional medical care. Always follow your healthcare professional's instructions. Follow Up Care 04/03/2022 16:25:00 With:Go to emergency room if symptoms worsen Address:Unknown When:2-4 days With:SOFIE TYLER MD Address: [address] [place] [address]- When:2-4 days [facility] 04-03-2022 Note Discharge Instructions Thank you for allowing [facility] to assist you with your healthcare needs. The following is important discharge information regarding your hospital visit. Diagnosis from Today's Visit Abscess Wound reevaluation with or without suture removal What to Do Next Instructions from Your Care Team Call your primary care provider for follow-up Wednesday. Return to the emergency department if you noticed increased redness around the wound, drainage, fevers, or any other care concern. No qualifying data available. Post Acute Orders No qualifying data available. You Need to Schedule the Following Appointments Follow Up with Go to emergency room if symptoms worsen When Within 2-4 days Follow Up with SOFIE TYLER MD When Within 2-4 days Where: [address] [place] [id number]- Allergies NKA Medications Please ask your primary doctor or pharmacist before taking any other medication not listed, including over the counter drugs, herbal medications, vitamins and or supplements as they may interact with your home medications. What How Much When Instructions Last Dose Unchanged sulfamethoxazole-trimethoprim (Bactrim DS 800 mg-160 mg oral tablet) 1 tab(s) by mouth Two (2) times a day Duration: 7 Days Please take this list to your next doctor s visit. Bring all medications you take, including over the counter medications, herbals and other supplements with you to your doctor s visit. Patients and families are reminded to discard old lists and to update any records with all medication providers or retail pharmacies. Education Materials Abscess (Incision & Drainage) An abscess is sometimes called a boil. It happens when bacteria get trapped under the skin and start to grow. Pus forms inside the abscess as the body responds to the bacteria. An abscess can happen with an insect bite, ingrown hair, blocked oil gland, pimple, cyst, or puncture wound. Your healthcare provider has drained the pus from your abscess. If the abscess pocket was large, your healthcare provider may have put in gauze packing. Your provider will need to remove it on your next visit. He or she may also replace it at that time. You may not need antibiotics to treat a simple abscess, unless the infection is spreading into the skin around the wound (cellulitis). The wound will take about 1 to 2 weeks to heal, depending on the size of the abscess. Healthy tissue will grow from the bottom and sides of the opening until it seals over. Home care These tips can help your wound heal: The wound may drain for the first 2 days. Cover the wound with a clean dry dressing. Change the dressing if it becomes soaked with blood or pus. If a gauze packing was placed inside the abscess pocket, you may be told to remove it yourself. You may do this in the shower. Once the packing is removed, you should wash the area in the shower, or clean the area as directed by your provider. Continue to do this until the skin opening has closed. Make sure you wash your hands after changing the packing or cleaning the wound. If you were prescribed antibiotics, take them as directed until they are all gone. You may use acetaminophen or ibuprofen to control pain, unless another pain medicine was prescribed. If you have liver disease or ever had a stomach ulcer, talk with your doctor before using these medicines. Follow-up care Follow up with your healthcare provider, or as advised. If a gauze packing was put in your wound, it should be removed in 1 to 2 days. Check your wound every day for any signs that the infection is getting worse. The signs are listed below. When to seek medical advice Call your healthcare provider right away if any of these occur: Increasing redness or swelling Red streaks in the skin leading away from the wound Increasing local pain or swelling Continued pus draining from the wound 2 days after treatment Fever of 100.4 F (38 C) or higher, or as directed by your healthcare provider Boil returns when you are at home [phone] [employer]. [address] [place] [address], [place] [address]. All rights reserved. This information is not intended as a substitute for professional medical care. Always follow your healthcare professional's instructions. Additional Information VACCINATE! IT SAVES LIVES! Members of the community who have not yet received the COVID-19 vaccine and would like to receive it can visit one of [facility] vaccine clinics. There are many vaccine clinic locations within the [facility] [address]. For locations and available times, please visit [email or web address]. It is important to note that some COVID mobile vaccine clinics are held outdoors and may be canceled in rainy or stormy conditions. To learn more about pediatric vaccinations (ages 5-11), we invite you to visit the [facility] webpage. [email or web address] To learn more about the COVID-19 vaccine, we invite you to visit the [facility] website for a list of frequently asked questions. [email or web address] [facility] Patient Portal Access Instructions: Stay connected with your healthcare team and access your personal medical information anytime with the [facility] Patient Portal. If you would like a full copy of your medical records please contact the [facility] Medical Records Department Wednesday through Wednesday between 8a.m. and 4:30p.m. Please follow the directions below to access the portal: 1.Access the email account you provided upon registration to the hospital.2.Look for an invitation email from [facility].3.Open the email and access the invitation link: Accept Invitation to [facility]4.Fill in the required fleming to create your account. Sign into [email or web address].[email or web address] with your username and password that you created in the above steps to stay up to date. You can then view a summary of results, a summary of your visits, and the ability to download your summaries to your computer or send the information securely to a physician. Remember that your healthcare information is confidential, so carefully consider who you will allow to register on the [facility] Patient Portal for access to your information. You can also access the [facility] Patient Portal on the GFS IT thony. Simply click on Health Records under Health Data and then click on the W[facility] logo. HOW TO SAFELY DISPOSE OF PRESCRIPTION MEDICATIONS Please use one of the following methods to safely dispose of your unused medications. 1.Use a drug disposal kit: the drug disposal pouch allows you to safely discard your old and unused drugs. Ask your nurse to give you one when you are discharged.2.Visit a local take-back location: Many local pharmacies and police departments have programs that collect old and unwanted prescription drugs. Call your local pharmacy or go to http://Aquantia.[facility]/9I2Zk2f to find one close to you.3.Make use of household items: Use cat litter or old coffee grounds to dispose medications if other options are not available. Mix your drugs with these household products, seal them in an airtight container and throw it into the garbage. Call [facility]: [phone] to be sure your drugs can be disposed of in this way. Some medicines may require a different approach.4.Never flush your medications down the toilet. IF YOU HAVE BEEN PRESCRIBED AN OPIOIDS FOR PAIN If you have been prescribed an opioid (such as hydrocodone, oxycodone or morphine), it is critical to understand the possible side effects and risks of opioid pain medications. Even when taken as directed, opioids can have several side effects including: Tolerance, meaning you might need to take more of a medication for the same pain relief. Nausea, vomiting and/or constipation. Sleepiness, dizziness, dry mouth, confusion, depression or itching. Physical dependence, meaning you have withdrawal symptoms when a medication is stopped ? this can develop within a few days. KNOW YOUR RESPONSIBILITIES It is important to know exactly how much and how often to take the opioid pain medications you are prescribed. Never take opioids in higher amounts or more often than prescribed. Do not combine opioids with alcohol or other drugs that cause drowsiness, such as benzodiazepines, also known as benzos, including diazepam and alprazolam, muscle relaxants or sleep aids. Never sell or share prescription opioids. This is illegal. Store opioids in a secure place and out of reach of others (including children, family, friends and visitors). The last page(s) of this document has been signed and retained as a CHART COPY Signatures Patient Education Materials Abscess, Incision And Drainage Medication Leaflets My discharge plan and instructions have been reviewed and explained to me and I,ESHA FRANCOIS understand my current condition and have read and understand these discharge instructions. I have received a written copy of the plan/instructions. If I have questions, I am aware that I should contact my doctor. 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 Pus is a fluid made up of germs (bacteria), white blood cells, and other matter. Draining pus from an infected area or organ inside the body may be needed. This helps heal the infection. The procedure is usually done by a specially trained doctor called an interventional radiologist. How do I get ready for abscess drainage? Follow any instructions you are given on how to prepare, including: Don't eat or drink anything for 6 hours before the procedure. Tell the technologist if you are, or could be, or if you are . Tell your healthcare provider and the technologist if you are allergic to X-ray dye (contrast medium) or other medicines. Be sure your healthcare provider knows about any health conditions you have and all medicines you take. You may be told to stop taking some or all of them before the test. This includes: oAll prescription medicines nEiux-jia-ovqzzyj medicines that don t need a prescription oAny street drugs you may use oHerbs, vitamins, kelp, seaweed, cough syrups, and any other supplements What happens during abscess drainage? You will change into a hospital gown and lie on an X-ray table. You may lie on your back, front, or side, depending on the site of the abscess. An IV line is put into your vein to give you fluids and medicines. You may be given medicine through the IV to help you relax. The skin over the abscess is cleaned. A local anesthetic is applied to numb the skin. Using CT scan, X-ray, or ultrasound images as a guide, the radiologist puts a needle through the skin and guides it to the abscess. The needle is then replaced with a thin, flexible tube (catheter). Pus drains from the abscess through the catheter. A bag or suction bulb will be attached to the catheter to hold the pus as it drains. The drainage catheter may be temporarily sutured or taped to your skin to help secure it and prevent it from moving. The entire procedure may take 30 minutes or longer, depending on the location of the abscess. What happens after abscess drainage? A slight fever is normal for the first 24 hours after the procedure. The catheter and drainage bag will likely remain in place for several days. Follow any instructions you are given for caring for the catheter and drainage site. See your healthcare provider for a follow-up appointment to check the infection and to have the catheter removed. When to call the healthcare provider Call your healthcare provider if you have: Bleeding Fever of 100.4 F (38 C) or higher, or as directed by your healthcare provider New or worsening pain Fluid stops draining from the tube, the drainage changes color, or the tube moves or comes out [id number] The [employer]. [address] [place] [address]. All rights reserved. This information is not intended as a substitute for professional medical care. Always follow your healthcare professional's instructions. Follow Up Care 04/01/2022 16:13:26 With:Go to emergency room if symptoms worsen Address:Unknown When:2-4 days With:SOFIE TYLER MD Address: [address] [place] [phone] When:2-4 days [facility] 04-01-2022 Emergency department Discharge summary Discharge Instructions Thank you for allowing [facility] to assist you with your healthcare needs. The following is important discharge information regarding your hospital visit. Diagnosis from Today's Visit Abscess Cellulitis Abscess - axilla and leg What to Do Next Instructions from Your Care Team follow up in 48 hours for evaluation of abscess and packing No qualifying data available. Post Acute Orders No qualifying data available. You Need to Schedule the Following Appointments Follow Up with Go to emergency room if symptoms worsen When Within 2-4 days Follow Up with SOFIE TYLER MD When Within 2-4 days Where: [address] [facility] [place] [id number]- Allergies NKA Medications Please ask your primary doctor or pharmacist before taking any other medication not listed, including over the counter drugs, herbal medications, vitamins and or supplements as they may interact with your home medications. What How Much When Why Instructions Last Dose New sulfamethoxazole-trimethoprim (Bactrim DS 800 mg-160 mg oral tablet) 1 tab(s) by mouth Two (2) times a day Duration: 7 Days Printed Prescription Unchanged ibuprofen (ibuprofen 600 mg oral tablet) 1 tab(s) by mouth Four (4) times a day as needed for as needed for pain Unchanged ibuprofen (ibuprofen 600 mg oral tablet) 1 tab(s) by mouth Three (3) times a day [place] disease Please take this list to your next doctor s visit. Bring all medications you take, including over the counter medications, herbals and other supplements with you to your doctor s visit. Patients and families are reminded to discard old lists and to update any records with all medication providers or retail pharmacies. Education Materials Abscess Drainage An abscess is a pocket of pus that forms around an infection. Pus is a fluid made up of germs (bacteria), white blood cells, and other matter. Draining pus from an infected area or organ inside the body may be needed. This helps heal the infection. The procedure is usually done by a specially trained doctor called an interventional radiologist. How do I get ready for abscess drainage? Follow any instructions you are given on how to prepare, including: Don't eat or drink anything for 6 hours before the procedure. Tell the technologist if you are, or could be, or if you are . Tell your healthcare provider and the technologist if you are allergic to X-ray dye (contrast medium) or other medicines. Be sure your healthcare provider knows about any health conditions you have and all medicines you take. You may be told to stop taking some or all of them before the test. This includes: oAll prescription medicines uSrbq-cyh-odorknb medicines that don t need a prescription oAny street drugs you may use oHerbs, vitamins, kelp, seaweed, cough syrups, and any other supplements What happens during abscess drainage? You will change into a hospital gown and lie on an X-ray table. You may lie on your back, front, or side, depending on the site of the abscess. An IV line is put into your vein to give you fluids and medicines. You may be given medicine through the IV to help you relax. The skin over the abscess is cleaned. A local anesthetic is applied to numb the skin. Using CT scan, X-ray, or ultrasound images as a guide, the radiologist puts a needle through the skin and guides it to the abscess. The needle is then replaced with a thin, flexible tube (catheter). Pus drains from the abscess through the catheter. A bag or suction bulb will be attached to the catheter to hold the pus as it drains. The drainage catheter may be temporarily sutured or taped to your skin to help secure it and prevent it from moving. The entire procedure may take 30 minutes or longer, depending on the location of the abscess. What happens after abscess drainage? A slight fever is normal for the first 24 hours after the procedure. The catheter and drainage bag will likely remain in place for several days. Follow any instructions you are given for caring for the catheter and drainage site. See your healthcare provider for a follow-up appointment to check the infection and to have the catheter removed. When to call the healthcare provider Call your healthcare provider if you have: Bleeding Fever of 100.4 F (38 C) or higher, or as directed by your healthcare provider New or worsening pain Fluid stops draining from the tube, the drainage changes color, or the tube moves or comes out [id number] The [employer]. [address] [place] [address]. All rights reserved. This information is not intended as a substitute for professional medical care. Always follow your healthcare professional's instructions. Additional Information VACCINATE! IT SAVES LIVES! Members of the community who have not yet received the COVID-19 vaccine and would like to receive it can visit one of [facility] vaccine clinics. There are many vaccine clinic locations within the [facility] [address]. For locations and available times, please visit [email or web address]. It is important to note that some COVID mobile vaccine clinics are held outdoors and may be canceled in rainy or stormy conditions. To learn more about pediatric vaccinations (ages 5-11), we invite you to visit the [facility] webpage. [email or web address] To learn more about the COVID-19 vaccine, we invite you to visit the [facility] website for a list of frequently asked questions. [email or web address] [facility] Patient Portal Access Instructions: Stay connected with your healthcare team and access your personal medical information anytime with the [facility] Patient Portal. If you would like a full copy of your medical records please contact the [facility] Medical Records Department Wednesday through Wednesday between 8a.m. and 4:30p.m. Please follow the directions below to access the portal: 1.Access the email account you provided upon registration to the [facility].2.Look for an invitation email from [facility].3.Open the email and access the invitation link: Accept Invitation to [facility].Fill in the required fleming to create your account. Sign into [email or web address] with your username and password that you created in the above steps to stay up to date. You can then view a summary of results, a summary of your visits, and the ability to download your summaries to your computer or send the information securely to a physician. Remember that your healthcare information is confidential, so carefully consider who you will allow to register on the [facility] Patient Portal for access to your information. You can also access the [facility] Patient Portal on the GFS IT thony. Simply click on Health Records under Health Data and then click on the [facility] logo. HOW TO SAFELY DISPOSE OF PRESCRIPTION MEDICATIONS Please use one of the following methods to safely dispose of your unused medications. 1.Use a drug disposal kit: the drug disposal pouch allows you to safely discard your old and unused drugs. Ask your nurse to give you one when you are discharged.2.Visit a local take-back location: Many local pharmacies and police departments have programs that collect old and unwanted prescription drugs. Call your local pharmacy or go to http://bit.[facility]/9X3Io0a to find one close to you.3.Make use of household items: Use cat litter or old coffee grounds to dispose medications if other options are not available. Mix your drugs with these household products, seal them in an airtight container and throw it into the garbage. Call [facility]: [phone] to be sure your drugs can be disposed of in this way. Some medicines may require a different approach.4.Never flush your medications down the toilet. IF YOU HAVE BEEN PRESCRIBED AN OPIOIDS FOR PAIN If you have been prescribed an opioid (such as hydrocodone, oxycodone or morphine), it is critical to understand the possible side effects and risks of opioid pain medications. Even when taken as directed, opioids can have several side effects including: Tolerance, meaning you might need to take more of a medication for the same pain relief. Nausea, vomiting and/or constipation. Sleepiness, dizziness, dry mouth, confusion, depression or itching. Physical dependence, meaning you have withdrawal symptoms when a medication is stopped ? this can develop within a few days. KNOW YOUR RESPONSIBILITIES It is important to know exactly how much and how often to take the opioid pain medications you are prescribed. Never take opioids in higher amounts or more often than prescribed. Do not combine opioids with alcohol or other drugs that cause drowsiness, such as benzodiazepines, also known as benzos, including diazepam and alprazolam, muscle relaxants or sleep aids. Never sell or share prescription opioids. This is illegal. Store opioids in a secure place and out of reach of others (including children, family, friends and visitors). The last page(s) of this document has been signed and retained as a CHART COPY Signatures Patient Education Materials Abscess Drainage Medication Leaflets My discharge plan and instructions have been reviewed and explained to me and I,ESHA FRANCOIS understand my current condition and have read and understand these discharge instructions. I have received a written copy of the plan/instructions. If I have questions, I am aware that I should contact my doctor. 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: Date/Time: Relationship to Patient: Witness Name/Signature: Date/Time: [facility] 03-24-2022 Miscellaneous Notes Behavioral Health Social Work Progress Note Patient identified for [facility] from: PCP Reason for referral: Resources Behavioral Health Resources: Psychology - talk therapy;Psychiatry med management [facility] encounter type: Telephone Encounter Attempts to Outreach: 1 attempt Referral made: Psychiatry - Internal;Psychiatry - External;Psychology - Internal;Psychology - External Psychiatry-Internal referral type: Medication Management Psychology-Internal referral type: Therapy Psychology-External referral type: Therapy Psychiatry-External referral type: Medication Management Reason for external referral: Wait times at [facility] too long Final Disposition: Unable to reach Patient Discharged?: No Patient reported that caregiver was able to meet their needs today?: N/A Phone call placed today that went to App[employer]. Left my contact information and brief nature of call. Initial outreach also completed via Flipaste sending list of in network providers with insurance. These include: [facility] (Telehealth available) [address] [place] [address] *counseling and psychiatry [facility] [address] [facility] [address] [address] [place] [address] *counseling and psychiatry [facility] (Telehealth available) [address] [place] [address] *[facility] (Telehealth available) [address] [place], [place] [phone] *counseling and psychiatry [place] [address] (Telehealth available) [address] [facility] [address] *counseling and psychiatry [facility] (Telehealth available) [address] [place] [address] *counseling [facility] [place] (Telehealth available) [address] [place] [phone] *counseling [facility] (Telehealth available) [address] [place], [place] [phone] *counseling and psychiatry [address] [place], [place] [phone] *counseling and psychiatry ALDAIR Bautista March 24, 2022 documented in this encounter [facility] 03-24-2022 History of Presen t illness Narrative Chief Complaint Patient presents with: Mood HPI Esha Francois is a 21 year old female who presents here today to discuss possible mood disorder. Pt scheduled via [facility] [place] to discuss possible mood disorder. Here today with her boyfriend, Ever, they've been together for the past two years. Pt last seen in this office 03/11/21 for routine medication follow up. Pt hx of Anxiety, Depression and Sleep Disturbance. Pt on current regimen of Effexor XR 150 mg once daily. Feels her depression is stable at current time. 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 Has increased stress at home recently. Pt reports symptoms of mood swings due to some life changes over the past 6 months, but ongoing for a while per patient. Pt states that one moment she will be happy (very), then the next angry and snapping at her boyfriend, to sad (not depressed) and then anxious. This will fluctuate through out the day often. Boyfriends states this does occur. Reports she has an attitude problem. Her Mother has BiPolar disorder and her brother has something like this. Has not done Counseling since school. When she did do this in school, it wasn't really helpful. Has taken Zoloft in the past, but states this did not work well for her. Past medical history, appointments, medications, allergies reviewed. Previous Medical History PAST MEDICAL HISTORY Diagnosis Date Anxiety with depression 12/05/2020 Chronic bilateral low back pain without sciatica 07/16/2021 SOTO (generalized anxiety disorder) Overweight (BMI 25.0-29.9) 07/16/2021 Sleep disturbance 12/05/2020 Previous Surgical History No past surgical history on file. Family History FAMILY HISTORY Problem Relation Age of Onset Narcolepsy Father Patient Allergies ALLERGIES No Known Allergies Current Medications Current Outpatient Medications on File Prior to Visit Medication Sig venlafaxine ER (EFFEXOR XR) 150 mg 24 hr capsule take 1 capsule by mouth once daily cholecalciferol, vitamin D3, (VITAMIN D3 ORAL) Take by mouth. Mefenamic Acid 250 mg cap Take 1 capsule by mouth every 6 hours as needed. cholecalciferol, Vitamin D3, (VITAMIN D3) 1,250 mcg (50,000 unit) cap capsule Take 1 capsule by mouth one time a week for 8 doses. (Patient not taking: Reported on 12/18/2021) ondansetron orally disintegrating (ZOFRAN ODT) 4 mg disintegrating tablet Take 1 tablet by mouth every 6 hours as needed for nausea/vomiting. No current facility-administered medications on file prior to visit. Social History Social History Tobacco Use Smoking status: Former Types: Cigarettes Smokeless tobacco: Never Tobacco comments: vape Vaping Use Vaping Use: current everyday user Substances: Nicotine, Flavoring Devices: Pre-filled pod Substance Use Topics Alcohol use: Never Drug use: Never EXAM: BP 114/80 (BP Site: Left Arm, BP Position: Sitting, BP Cuff Size: Regular Adult) Pulse 84 Resp 16 Wt 78.5 kg (173 lb) LMP 12/17/2021 (Exact Date) BMI 32.69 kg/m General Appearance: Well appearing, alert, in no acute distress, well-hydrated, well nourished and Overweight. Neck: Supple, no adenopathy; thyroid symmetric, normal size, no bruits. Lungs: Lungs clear to auscultation. No wheezing, rhonchi, rales.. Heart: RRR without murmur, gallop, or rubs. No ectopy. Health Maintenance List MENINGOCOCCAL B: Consider based on risk(1 of 2 - Risk Bexsero 2-dose series) Never done HEPATITIS C SCREENING Never done HIV SCREENING Never done COVID-19 VACCINE(2 - Booster for Jhonny series) due on 02/18/2021 INFLUENZA(1) Never done GC (GONORRHEA) SCREENING (18-24) due on 12/19/2022 CHLAMYDIA SCREENING (18-24) due on 12/19/2022 DTAP,TDAP,TD(7 - Td or Tdap) due on 12/07/2024 HEPATITIS B Completed HPV VACCINE Completed MENINGOCOCCAL CONJUGATE Completed Data reviewed None ASSESSMENT/PLAN: 1. Mood changes - ICD9: 296.90, ICD10: R45.86 (primary diagnosis) - Increase in Effexor, start 75 mg XR to current dose of 150 mg daily - Refer to Psych, to evaluate for Bipolar Disorder and/or additional treatment 2. Anxiety with depression - ICD9: 300.4, ICD10: F41.8 - Stable, increase Effexor 1 mo f/u I agree with the Chief Complaint, ROS, and Past Histories independently gathered by the clinical bioinformatics support specialist and the remaining scribed note accurately describes my personal service to the patient. Medical Decision Making: Problems: Moderate: 1+ chronic illnesses with change Risk: Moderate: Drug management Medical Decision Making Level: 4 - Moderate Sofie Tyler MD The documentation for this note was completed by Selma Hoover Ma acting as scribe for Sofie Tyler MD. March 24, 2022 11:57 AM. Selma Hoover Ma documented in this encounter [facility] 02-20-2022 History of Presen t illness Narrative Images from the original note were not included. Waldo Kerr PA-C [facility] [address] [place] [address] 02/20/2022 ASSESSMENT AND PLAN: Assessment : Encounter Diagnosis ICD-10-CM 1. Somatic dysfunction of lumbar region M99.03 Discussion: Ms. Francois is a pleasant 21-year-old female accompanied by a young man at today's office visit. She is here for evaluation of axial upper low back pain without radiation. She has not had any treatment yet for this but has noticed symptoms over the past few years. He is currently be treated for her knees and has been referred to physical therapy for that but has not started just yet. She does not take any meds for this. The patient relates how her dad has significant spine problems with multiple surgeries and failure of instrumentation and chronic pain and she is concerned about herself for that reason. She has normal mobilization, stance, gait, strength, reflexes, sensation. Balance is minimally diminished. There is some pain on palpation over the spinous processes of L1, L2, L3 and over the surrounding facets and musculature Motion is normal. I reviewed her x-rays with her during today's visit. She has minimal scoliosis appreciated and possible mild leg length discrepancy that could contribute to a scoliosis in that same direction. She does not have focal problems in the low back or any fracture or listhesis. She will start her PT for the knees and hopefully they will give her the opportunity to do some conditioning and exercises that would help her back as well. She could benefit from some mild weight loss and conditioning We also discussed value of stopping vaping and especially regular cigarettes. At this point, I do not see any concern specifically for severe structural problems. I do not see foreseeable need for surgery and fortunately her symptoms are quite mild and manageable. Have her return here on an as-needed basis Plan : REFERAL FOR SERVICES: -Physical therapy will be instituted. ACTIVITY RECOMMENDATIONS: -The patient is encouraged to avoid bed rest and maintain normal activity. -The patient is encouraged to exercise regularly as tolerated. TOBACCO RECOMMENDATIONS: -Tobacco cessation discussed and encouraged. NUTRITION RECOMMENDATIONS: -The patient is carrying a significant amount of weight above an ideal BMI. We discussed how this impacts overall health and back pain. FOLLOW-UP: -The patient is instructed to return as needed. ADDITIONAL DISCUSSION: -We discussed the difference between hurt vs harm as it relates to chronic pain. This document has been created with the use of voice recognition technology. It may contain inaccuracies: (e.g. misspellings, inaccurate syntax or word sense) that have escaped review. Time spent: 44 minutes today with this patient visit. This includes [id number] time, review of chart records regarding conservative care history, spine-pertinent imaging, and communication/care coordination with referring provider, problem-specific history-taking and counseling/education regarding treatment options. cc: SELF Phone: N/A Fax: Results of consultation to be transmitted via electronic medical record for those providers who practice within [facility] or with access to [employer] via [facility], or via letter. ################################ ################################ ######## CHIEF COMPLAINT: Patient is here for the lower back pain. Pain started years ago, and getting worse. Pain stops in the right knee. Level of the pain is at 5/10. 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 Spinal Injections: She has not gotten prior spinal injections. Other: None Current Outpatient Medications Medication Sig Dispense Refill diclofenac, EC, (VOLTAREN) 50 mg EC tablet Take 1 tablet by mouth twice daily. 60 tablet 0 venlafaxine ER (EFFEXOR XR) 150 mg 24 hr capsule take 1 capsule by mouth once daily 90 capsule 1 cholecalciferol, vitamin D3, (VITAMIN D3 ORAL) Take by mouth. Mefenamic Acid 250 mg cap Take 1 capsule by mouth every 6 hours as needed. 30 capsule 6 ondansetron orally disintegrating (ZOFRAN ODT) 4 mg disintegrating tablet Take 1 tablet by mouth every 6 hours as needed for nausea/vomiting. 30 tablet 5 cholecalciferol, Vitamin D3, (VITAMIN D3) 1,250 mcg (50,000 unit) cap capsule Take 1 capsule by mouth one time a week for 8 doses. (Patient not taking: Reported on 12/18/2021) 8 capsule 0 No current facility-administered medications for this visit. Allergies: Patient has no known allergies. PAST MEDICAL HISTORY Diagnosis Date Anxiety with depression 12/05/2020 Chronic bilateral low back pain without sciatica 07/16/2021 SOTO (generalized anxiety disorder) Overweight (BMI 25.0-29.9) 07/16/2021 Sleep disturbance 12/05/2020 No past surgical history on file. Social History Tobacco Use Smoking status: Former Types: Cigarettes Smokeless tobacco: Never Tobacco comments: vape Vaping Use Vaping Use: current everyday user Substances: Nicotine, Flavoring Devices: Pre-filled pod Substance Use Topics Alcohol use: Never Drug use: Never FAMILY HISTORY Problem Relation Age of Onset Narcolepsy Father REVIEW OF SYSTEMS: Constitutional: (-) Fever/Chills (-) Night Sweats (+) Weight Gain (-) Weight Loss (+) Fatigue Gastrointestinal: (-) Abdominal Pain (-) Diarrhea (-) Constipation (+) Nausea/Vomiting (-) Heart Burn Cardiovascular: (-) Chest Pain (+) Palpitations (-) Lightheadedness (-) Swelling of Ankles (-) Hx Heart Surgery/Stent Respiratory: (-) Short of Breath (-) Cough (+) Snoring Neurologic: (+) Headache (-) Blurry Vision (-) Fainting Skin: (-) Rashes (-) Itching (-) Other Lesions Psychiatric: (-) Depression (+) Anxiety (-) Suicidal Thoughts Genitourinary: (-) Frequency (-) Urgency Endocrine: (-) Thyroid Disorder (-) Diabetes Hematologic: (-) Prolonged Bleeding (+) Easy Bruising ################################ ################################ ################################ ################################ # PHYSICAL EXAM: Blood pressure 104/67, pulse 91, height 154.9 cm (5' 1 ), weight 76.4 kg (168 lb 8 oz), last menstrual period 12/17/2021, SpO2 100 %. Body mass index is 31.84 kg/m . General: Patient is a(n) average historian. The patient appears approximately the recorded age and is sitting comfortably in the examining room. The patient is average height in stature and is overweight in appearance. This individual has no difficulty arising from a sitting position and does not have difficulty acquiring a full, upright position when standing. Station and Gait: Normal stance, normal gait. The patient is able to but has difficulty in attempting to walk in a tandem gait. MENTAL STATUS EXAMINATION: The patient was casually attired. The patient had good eye contact and rapport was average to establish. The patient appeared to be alert and oriented in all spheres. The patient's overall medical judgment appeared to be fair.The patient's motivation for treatment was judged based on today's encounter to be good. SPINE: Lumbar Lordosis: Normal Thoracic Kyphosis: Normal RANGE OF MOTION: Flexion: normal, as expected for age and weight Pain: No Extension: normal, as expected for age and weight Pain: Yes, axial pain Lateral Bending: Right normal, as expected for age and weight Pain: No Left normal, as expected for age and weight Pain: No PALPATION TENDERNESS: Moderate tenderness at: lumbar region Hyperesthesia present: No Regional symptoms present: No Increased pain with axial loading: No Distraction: Normal Pain responses: appropriate NEUROLOGIC EXAM: MOTOR: Walk on Toes: Right: Yes Left: Yes Walk on Heels: Right: Yes Left: Yes Requires verbal cues to minimize cog-wheel or give-way resistance: No Hip Flexor R: 5/5 L: 5/5 Hip Adductor R: 5/5 L: 5/5 Hip Abductor R: 5/5 L: 5/5 Knee Extension R: 5/5 L: 5/5 Foot Dorsiflexion R: 5/5 L: 5/5 Foot Plantar Flexion R: 5/5 L: 5/5 Ext Hallicus Longus R: 5/5 L: 5/5 Toe Extensors R: 5/5 L: 5/5 SENSATION to Light Touch: Lumbar: L2-S1 symmetrically normal. REFLEXES: Lower Extremity: All Lower Extremity reflexes symmetrically normal. Clonus: R: 0 beats/Normal L: 0 beats/Normal Babinski Sign: Negative bilaterally. Upper Extremity: All Upper Extremity reflexes symmetrically normal. Alonso's Sign: Negative bilaterally. VASCULAR: Skin appearance: Right: Warm/pink Left: Warm/pink Capillary refill: Right: brisk Left: brisk ADDITIONAL MUSCULOSKELETAL EXAM: HIP/PELVIS EXAM: Tenderness over the PSIS: Right: No Left: No Greater Trochanteric pain: Right: No Left: No Motion restriction: Right: No Left: No Pain: Right: No Left: No SPECIAL TESTS: Straight Leg Raise: negative bilaterally Contralateral Straight Leg Raise: negative bilaterally IMAGING STUDIES: See discussion above documented in this encounter [facility] 02-20-2022 History of Presen t illness Narrative Luba Galicia PA-C Department of Orthopaedics Orthopaedics [address] [address] Dept: [phone] February 20, 2022 SUBJECTIVE: CHIEF COMPLAINT: New and Knee Pain of the Right Knee and New and Knee Pain of the Left Knee HPI: Ms. Esha Francois is a 21 year old female. She presents today with bilateral knee pain that has been present for years. Today she rates her pain a 6 on a scale of 0-10. She describes the pain as cool and tingly underneath her kneecaps. The pain is worse with standing for long periods of time and navigating stairs. She is not taking ibuprofen or Tylenol as needed but notes it is not providing much relief. She feels like food knees do lock and catch. She denies any specific injury, weakness or previous surgery. Past Medical History: PAST MEDICAL HISTORY Diagnosis Date Anxiety with depression 12/05/2020 Chronic bilateral low back pain without sciatica 07/16/2021 SOTO (generalized anxiety disorder) Overweight (BMI 25.0-29.9) 07/16/2021 Sleep disturbance 12/05/2020 Past Surgical History: History reviewed. No pertinent surgical history. Family History: FAMILY HISTORY Problem Relation Age of Onset Narcolepsy Father Social History: Social History Tobacco Use Smoking status: Former Types: Cigarettes Smokeless tobacco: Never Tobacco comments: vape Vaping Use Vaping Use: current everyday user Substances: Nicotine, Flavoring Devices: Pre-filled pod Substance Use Topics Alcohol use: Never Drug use: Never Medications: Current Outpatient Medications Medication Sig venlafaxine ER (EFFEXOR XR) 150 mg 24 hr capsule take 1 capsule by mouth once daily Mefenamic Acid 250 mg cap Take 1 capsule by mouth every 6 hours as needed. ondansetron orally disintegrating (ZOFRAN ODT) 4 mg disintegrating tablet Take 1 tablet by mouth every 6 hours as needed for nausea/vomiting. diclofenac, EC, (VOLTAREN) 50 mg EC tablet Take 1 tablet by mouth twice daily. cholecalciferol, vitamin D3, (VITAMIN D3 ORAL) Take by mouth. cholecalciferol, Vitamin D3, (VITAMIN D3) 1,250 mcg (50,000 unit) cap capsule Take 1 capsule by mouth one time a week for 8 doses. (Patient not taking: Reported on 12/18/2021) No current facility-administered medications for this visit. Allergies: Patient has no known allergies. ROS: General: negative for fatigue, malaise, weight loss/gain Musculoskeletal: see HPI Psych: no depression, anxiety OBJECTIVE: Ms. Esha Francois is a pleasant 21 year old in no apparent distress. Gen:Ht 5' 1 (1.55m) Wt 164 lb (74.4kg) LMP 12/17/2021 BMI 31.00 kg/(m^2). nl development, non obese, no deformities ENT: Normocephalic, normal hearing, moist mucosa CV: Pulses:DP/PT= 2+ and symmetric, capillary refill < 2 secs, no peripheral edema/varicosities Skin: no rash, bruising or lesions. Good turgor. Psych: cooperative and appropriate, alert and oriented x 3, good mood and affect. Musculoskeletal: bilateral hips and ankles FROM without pain or limitation. RT Knee: Alignment: Neutral Active Extension 0 and Active Flexion 120 Extension lag: No Pain with ROM: No Effusion: Slight Erythema: No Ecchymosis: No Tender to the palpation of lateral patellar facet Pain with patellar compression: No Stability: Anterior/Posterior stable and Varus/Valgus stable Patellofemoral crepitus: No Quad Atrophy: No Ignacia's: Negative Anterior drawer: Negative LT Knee: Alignment: Neutral Active Extension 0 and Active Flexion 120 Extension lag: No Pain with ROM: No Effusion: Slight Erythema: No Ecchymosis: No Tender to the palpation of lateral patellar facet Pain with patellar compression: No Stability: Anterior/Posterior stable and Varus/Valgus stable Patellofemoral crepitus: No Quad Atrophy: No Ignacia's: Negative Anterior drawer: Negative IMAGIN02/20/2022 3:58 PM - Radiology, [place] In Impression IMPRESSION: No acute osseous abnormality identified. Left knee patella devan.. Mail Agent: HEMA Transcribe Date/Time: Feb 20 2022 3:54P Dictated by : ONI GILLETTE MD This examination was interpreted and the report reviewed and electronically signed by: NOI GILLETTE MD on Feb 20 2022 3:56PM EST Results-Findings * * *Final Report* * * DATE OF EXAM: Feb 20 2022 9:48AM [id number] [id number] - XR KNEE 4V AP/PA/LAT/MERCH IVAN / PROCEDURE REASON: multiple diagnoses * * * * Physician Interpretation * * * * Knee radiographs HISTORY: 21 years old Clinical information: Pain in both knees, unspecified chronicity Pain in both knees, unspecified chronicity pain TECHNIQUE: Images: XR KNEE 4V AP/PA/LAT/MERCH IVAN Comparison: None. RESULT: Findings: LEFT KNEE: Joint spaces are maintained. No fracture or dislocation. No joint effusion. No soft tissue abnormality identified. Insall-Salvati ratio ratio of 1.2. RIGHT KNEE: Joint spaces are maintained. No fracture or dislocation. No joint effusion. No soft tissue abnormality identified. ASSESSMENT: M22.2X1, M22.2X2 Patellofemoral syndrome of both knees (primary encounter diagnosis) PLAN: Reviewed images taken today. Discussed treatment options for patellofemoral syndrome including prescription anti-inflammatories and physical therapy. Prescription for diclofenac sent to pharmacy. Consult to physical therapy for appropriate patellofemoral protocol placed. Patient agreeable plan will follow up in 8 weeks. FOLLOW UP INSTRUCTIONS: 8 weeks Luba Galicia PA-C documented in this encounter [facility] 01-19-2022 Miscellaneous Notes The following approved medication requests have been transmitted electronically. Requested Prescriptions Pending Prescriptions Disp Refills venlafaxine ER (EFFEXOR XR) 150 mg 24 hr capsule [Pharmacy Med Name: VENLAFAXINE HCL ER 150 MG CAP] 90 capsule 1 Sig: take 1 capsule by mouth once daily Gerber Singh APRN.CNP documented in this encounter [facility] 12-23-2021 Miscellaneous Notes Please file labs if in agreement. Patient seen 12/18 documented in this encounter [facility] 12-18-2021 History of Presen t illness Narrative Esha Francois is a 21 year old female who presents for problem visit for c/o irreg periods. Menarche age 13 HPI: 21 YOF presents c/o irreg menses. Sometimes starts later than every 4 weeks. Generally has 35 day cycles. Usually 5-6 days of flow. Cramping worse as she has gotten older. Uses tylenol and heat prn. Takes 2 tylenol every 4 hrs. still has a lot of pain even w/ that. Changes protection every 4 hrs first two days. Sexually active. One partner in past year. Male. No contraception other than sometimes condoms. No abnormal vaginal discharge, itching or burning. No dyspareunia. Denies h/o VTE in self or family. Denies hair or skin changes, no h/o prolonged bleeding or easy bruising. OB History No obstetric history on file. Director Of Women'S Services History LMP: 06/30/2021 (Exact Date), Having periods Age at Menarche: Age at First : Age at Menopause: Director Of Women'S Services History Comments: Sexual Activity: Yes; No partner data on record Contraception: Condom PAST MEDICAL HISTORY Diagnosis Date Anxiety with depression 12/05/2020 Chronic bilateral low back pain without sciatica 07/16/2021 SOTO (generalized anxiety disorder) Overweight (BMI 25.0-29.9) 07/16/2021 Sleep disturbance 12/05/2020 No past surgical history on file. FAMILY HISTORY Problem Relation Age of Onset Narcolepsy Father Social History Tobacco Use Smoking status: Light Smoker Smokeless tobacco: Current Tobacco comments: Pt vapes Vaping Use Vaping Use: current everyday user Substances: Nicotine, Flavoring Devices: Pre-filled pod Substance Use Topics Alcohol use: Never Drug use: Never Current Outpatient Medications Medication Sig cholecalciferol, vitamin D3, (VITAMIN D3 ORAL) Take by mouth. venlafaxine ER (EFFEXOR XR) 150 mg 24 hr capsule Take 1 capsule by mouth once daily. ondansetron orally disintegrating (ZOFRAN ODT) 4 mg disintegrating tablet Take 1 tablet by mouth every 6 hours as needed for nausea/vomiting. cholecalciferol, Vitamin D3, (VITAMIN D3) 1,250 mcg (50,000 unit) cap capsule Take 1 capsule by mouth one time a week for 8 doses. (Patient not taking: Reported on 12/18/2021) No current facility-administered medications for this visit. Allergies As of Date: 12/18/2021 (No Known Allergies) Fully Assessed 12/18/2021 Allergies and current medication updated:Yes EXAM: LMP 06/30/2021 GENERAL: pleasant, female in no apparent distress ASSESSMENT AND PLAN: primary dysmenorrhea, STI screening. R/b/a to various options reviewed. would like NSAID for now. Not interested in contraception. Safe sex practices reviewed. Return if desires other contraception or unsatisfactory. Medical Decision Making: Medical Decision Making Level: 1 - N/A Tayler Castillo MD documented in this encounter [facility] 12-15-2021 History of Presen t illness Narrative Pt comes in today she states to catch up on vaccines. Pt receives pneumonia vaccine today . Tolerates well. Does not want covid booster . Per AUDIO VISUAL TECH pt is not at risk for meningococcal vaccine is not attenting college , not living in a dorm . Pt states then does not want it. documented in this encounter [facility] 09-19-2021 Miscellaneous Notes Addended by: LIZ ESPARZA on: 09/19/2021 10:28 AM Modules accepted: Orders documented in this encounter [facility] 09-19-2021 History of Presen t illness Narrative HPI: This is Ms. Esha Francois a 20 year old female from who presents to the [facility] neurology department with a chief complaint of weakness She was referred to neuromuscular by Elpidio Evans MD, neurology She had sleep study ordered by sleep medicine 05/10 This is 20 year old female with anxiety and depression who presented with primary sleep c/o hypersomnolence with PSG not showing hypoxia or sleep apnea but with presence of hypercarbia during wakefulness worsening with sleep. Pulmonary referral for evaluation of hypoventilation/chronic hypercarbia workup Patient does admit that she was diagnosed with COVID shortly after the PSG which may have confounded the results She then was seen by general neurology; she was evaluated for whole body weakness, feeling tired all the time. She has some KOLB, no trouble lying flat. No diplopia, ptosis. Today she reports relatively few symptoms. She has knee and back pain intermittently. 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 Only had some shortness of breath while climbing very tall stairs at a park. No orthopnea. No trouble eating, swallowing. No significant muscle weakness. She vapes all the time, has only occasional cigarettes. Labs included a1c, normal, autoimmune labs normal, ck (low) Organic acids and amino acids in the urine were tested with consultation stating that the urine OA profile showed no significant abnormalities and AA profile was non-specific. She is very concerned about the meaning of these test results. PMH: PAST MEDICAL HISTORY Diagnosis Date Anxiety with depression 12/05/2020 Chronic bilateral low back pain without sciatica 07/16/2021 SOTO (generalized anxiety disorder) Overweight (BMI 25.0-29.9) 07/16/2021 Sleep disturbance 12/05/2020 Medications: Current Outpatient Medications Medication Sig Dispense Refill venlafaxine ER (EFFEXOR XR) 150 mg 24 hr capsule Take 1 capsule by mouth once daily. 90 capsule 1 cholecalciferol, Vitamin D3, (VITAMIN D3) 1,250 mcg (50,000 unit) cap capsule Take 1 capsule by mouth one time a week for 8 doses. 8 capsule 0 ondansetron orally disintegrating (ZOFRAN ODT) 4 mg disintegrating tablet Take 1 tablet by mouth every 6 hours as needed for nausea/vomiting. 30 tablet 5 No current facility-administered medications for this visit. Allergies: ALLERGIES No Known Allergies Social History: Social History Tobacco Use Smoking status: Light Tobacco Smoker Smokeless tobacco: Current User Tobacco comment: Pt vapes Vaping Use Vaping Use: current everyday user Substances: Nicotine, Flavoring Devices: Pre-filled pod Substance Use Topics Alcohol use: Never Drug use: Never Family History: FAMILY HISTORY Problem Relation Age of Onset Narcolepsy Father ROS: A complete review of systems was performed. All systems negative other than those mentioned in HPI. Physical Exam: Vitals: BP 111/71 Pulse 72 Wt 72.6 kg (160 lb) LMP 06/30/2021 (Exact Date) SpO2 99% General appearance: no acute distress. Neurological Exam: MSE: Alert and oriented to person, place, and time. Speech is fluent without dysarthria or aphasia. Recall is intact to recent and remote events. Attention and concentration are intact. Fund of knowledge is intact. CN: Pupils equally round and reactive to light. Extraoccular muscles intact. Visual fleming full. Facial sensation deferred d/t covid. Facial muscles symmetric. Hearing intact to voice. Tongue/palate deferred d/t covid. Shoulder shrug 5/5 bilaterally. MSK: Normal bulk and tone throughout. Deltoid Triceps Biceps Wrist ext. Hand intrinsic Hip flexion Knee flexion Knee Ext. Neal. Flex Pl. flex Right 5 5 5 5 5 5 5 5 5 5 Left 5 5 5 5 5 5 5 5 5 5 Sensation: Intact to light touch, proprioception, and vibration throughout. Reflexes: R L Biceps 2 2 Triceps 2 2 Brachioradialis 2 2 Patellar 2 2 Achilles 2 2 Toes downgoing bilaterally Cerebellar: Intact finger to nose bilaterally. Gait: Normal. Normal toe and heel walking. Labs: WBC Date Value Ref Range Status 03/11/2021 9.89 3.70 - 11.00 k/uL Final Hemoglobin Date Value Ref Range Status 03/11/2021 14.8 11.5 - 15.5 g/dL Final Hematocrit Date Value Ref Range Status 03/11/2021 46.4 (H) 36.0 - 46.0 % Final MCV Date Value Ref Range Status 03/11/2021 89.2 80.0 - 100.0 fL Final Platelet Count Date Value Ref Range Status 03/11/2021 350 150 - 400 k/uL Final Sodium Date Value Ref Range Status 06/27/2021 138 136 - 144 mmol/L Final Potassium Date Value Ref Range Status 06/27/2021 4.2 3.7 - 5.1 mmol/L Final Chloride Date Value Ref Range Status 06/27/2021 105 97 - 105 mmol/L Final CO2 Date Value Ref Range Status 06/27/2021 22 22 - 30 mmol/L Final BUN Date Value Ref Range Status 06/27/2021 12 7 - 21 mg/dL Final Creatinine Date Value Ref Range Status 06/27/2021 0.71 0.58 - 0.96 mg/dL Final Calcium, Total Date Value Ref Range Status 06/27/2021 9.5 8.5 - 10.2 mg/dL Final Albumin Date Value Ref Range Status 06/27/2021 4.4 3.9 - 4.9 g/dL Final Protein, Total Date Value Ref Range Status 06/27/2021 6.9 6.3 - 8.0 g/dL Final AST Date Value Ref Range Status 06/27/2021 23 13 - 35 U/L Final ALT Date Value Ref Range Status 06/27/2021 20 7 - 38 U/L Final Alkaline Phosphatase Date Value Ref Range Status 06/27/2021 62 45 - 87 U/L Final Bilirubin, Total Date Value Ref Range Status 06/27/2021 0.4 0.2 - 1.3 mg/dL Final Anion Gap Date Value Ref Range Status 06/27/2021 11 9 - 18 mmol/L Final TSH Date Value Ref Range Status 03/11/2021 1.130 0.510 - 4.300 uU/mL Final Comment: If the patient is , TSH reference range varies by gestational period: First Trimester (weeks 9-12): 0.180-2.990 mcIU/mL Second Trimester: 0.110-3.980 mcIU/mL Third Trimester: 0.480-4.710 mcIU/mL Valentín Agrawal et al. A Practical Approach for the Verifications and Determination of Site- and Trimester-Specific Reference Intervals for Thyroid Function tests in . Thyroid, 2019:29:3:412-420. Ruy E, et al. 2017 Guidelines of the [place] [employer] for the Diagnosis and Management of Thyroid Disease during and the . Thyroid, 2017:27:3:315-389. Reference ranges were not locally established for this patient's age group. The normal values are based on the following source: Oz WOscar V. Reference Ranges for Adults and Children: Pre-analytical Considerations. [facility] Hemoglobin A1C Date Value Ref Range Status 07/23/2021 4.7 4.3 - 5.6 % Final Comment: [place] [employer] guidelines indicate that patients with HgbA1c in the range 5.7-6.4% are at increased risk for development of diabetes, and intervention by lifestyle modification may be beneficial. HgbA1c greater or equal to 6.5% is considered diagnostic of diabetes. Vitamin B12 Date Value Ref Range Status 04/07/2021 508 232 - 1,245 pg/mL Final SMOOTH Date Value Ref Range Status 06/27/2021 Negative Negative Final Comment: Anti-nuclear antibody test is used as an aid in diagnosis of systemic autoimmune diseases. Where positive and clinically warranted, follow-up using disease-specific testing is recommended. Low positive titers are not uncommon with advanced age, certain chronic infections, and malignancies among others. Test methodology: Indirect fluorescence immunoassay (IFA) using HEp-2 cells. Imaging: Other studies: 04/29/2021 PSG IMPRESSION/RECOMMENDATIONS: 1. Primary snoring. Although the apnea-hypopnea index (AHI) was normal, this AHI may be underestimated due to the absence of recorded REM supine sleep. 2. If sleep apnea is strongly suspected, a repeat PSG may be indicated given night to night variability in sleep apnea and the possibility of a false negative study. 3. Hypercapnia was noted: hypercapnia during wakefulness with end tidal CO2 (ETCO2) >45mmHg worsening during sleep to a maximum ETCO2 value of 63mmHg. There may be an underlying cardiopulmonary or neurological disorder and/or obesity that explains these findings. Further clinical correlation is advised. 4. No unusual behaviors were observed. Normal REM sleep with atonia was recorded. 5. Hypersomnia, as indicated by the elevated [place] sleepiness scale, is not otherwise explained by the findings on this study. A comprehensive sleep evaluation may be warranted. 6. Abnormal sleep architecture likely due to respiratory events, medications, and first night effect. PFTs IMPRESSION: Spirometry is normal. The diffusing capacity is normal. Maximum inspiratory and expiratory pressures are below the LLN which may indicating respiratory neuro-muscular dysfunction. Assessment/Plan : Ms Francois presents for evaluation of hypercarbia on sleep study, which possibly occurred while she was infected with COVID. Subsequent PFT testing demonstrated low MIPs/MEPs, other PFT paramaters normal (no restrictive pattern); CXR was normal She has no significant respiratory symptoms (only mild dyspnea with heavy exertion, not affecting her daily living or work function). Her primary clinical concern and consistent symptom that led to all of the testing was excessive daytime sleepiness (referral to neurology was initiated d/t high CO2 levels and low MIPs/MEPs) Her neurologic exam is normal without clinical weakness CK was low, MG labs were negative. Extensive laboratory testing was ordered by Dr. Monique including: CK, amino acids, acyclarnitines, auto-antibody panel, MG antibodies, MUSK, lacate/pyruvate, creatine. She does not likely have a motor neuron disease, a neuromuscular junction disorder, nor a myopathy. EMG testing is considered low yield in this clinical context. Organic acids and amino acids in the urine were tested with consultation stating that the urine OA profile showed no significant abnormalities and AA profile was non-specific. She is very concerned about the meaning of these test results. I advised her that the interpretation of this testing is outside the realm of my clinical expertise, however, clinically I doubt that she has muscle disease. I forwarded her results to Dr. Hall who kindly reviewed the test results, and indicated that they are normal. I advised Nir Pawan of this. documented in this encounter [facility] 07-28-2021 Miscellaneous Notes The following approved medication requests have been transmitted electronically. Pending Prescriptions Disp Refills VENLAFAXINE ER 150 MG CAPSULE,EXTENDED RELEASE 24 HR 90 capsule 1 Sig: Take 1 capsule by mouth once daily. WANDER: No Gerber Singh APRN.HAILEY Patient has been identified by name and date of : Yes Pending Prescriptions Disp Refills VENLAFAXINE ER 150 MG CAPSULE,EXTENDED RELEASE 24 HR 90 capsule 1 Sig: Take 1 capsule by mouth once daily. WANDER: No RX INSTRUCTIONS: Patient aware RX will be sent to pharmacy. No need to notify patient. Sharyn Aguilar MA Olivia: 07/2021 Nov: no appointment scheduled Last refill; 12/2020 - 90 capsule 1 refill Patient has been identified by name and date of : Yes Pending Prescriptions Disp Refills VENLAFAXINE ER 150 MG CAPSULE,EXTENDED RELEASE 24 HR 90 capsule 1 Sig: Take 1 capsule by mouth once daily. WANDER: No RX INSTRUCTIONS: Patient aware RX will be sent to pharmacy. No need to notify patient. Basilia Juarez Pss documented in this encounter [facility] 07-25-2021 Miscellaneous Notes Noted. Daniela Gaston APRN.HAILEY I called the pt with the phone number that the scheduling tree provided ([phone]). The pt stated that that phone number was not helpful previously, so I called the [facility] scheduling line ([phone]) to ask if they could call and schedule the patient. Kourtney, the paint pourer, stated she would call the patient and schedule. Thank you, Debi Goff Can you please call the patient back and let her know that I replaced the order for pediatric endocrinology and and the comments requested that they schedule her without specific doctor. Please let me know if she has any questions. Thank you. Daniela Gaston APRN.HAILEY Patient notified of results and provider's instructions. Patient verbalizes understanding. Patient states that she tried to schedule appointment with pediatric drip box tender last night and was told that she cannot do this unless there is a diagnosis Ansley Welch, RN TC to pt. LM to call office, ask for triage nurse to get results. Kelsie Laguerre LPN Can you please call the patient and let her know that her A1c was normal. No signs of diabetes. As discussed at office visit I recommend scheduling an appointment with pediatric endocrinology with Dr. Guicho Marks. Please let me know if she has any questions. Thank you. Daniela Gaston APRN.CNP documented in this encounter [facility] 07-23-2021 Instructions Daniela Gaston APRN.CNP - 07/23/2021 4:23 PM EDT 1.) Get lab completed. 2.) Make an appointment for pediatric drip box tender. 3.) Keep follow up appointment with neurology. 4.) Follow up pending test results or sooner as needed. documented in this encounter [facility] 07-23-2021 History of Presen t illness Narrative This is a 20 year old female who presents today with: Patient presents with: Acute Visit: diabetes HISTORY OF PRESENT ILLNESS: Esha Francois is a 20 year old female. Patient presents with: Acute Visit: diabetes Here in the office for concerns for diabetes. Refers that the other day got nauseous and hot. [place] better after drinking a slushy. Does not drink water at all, drinking tea most of the day. Is eating a well balanced diet with 3 meals per day and snacks. No LOC or dizziness. Orlin Mercado CNP did e-consult with endo, which recommended follow up with Pediatric Endo. Currently seeing Neuro for multiple symptoms. Many amino labs came back abnormal. PAST MEDICAL HISTORY: PAST MEDICAL HISTORY Diagnosis Date Anxiety with depression 12/05/2020 Chronic bilateral low back pain without sciatica 07/16/2021 SOTO (generalized anxiety disorder) Overweight (BMI 25.0-29.9) 07/16/2021 Sleep disturbance 12/05/2020 No past surgical history on file. ALLERGIES Patient has no known allergies. MEDICATIONS Current Outpatient Medications Medication Sig cholecalciferol, Vitamin D3, (VITAMIN D3) 1,250 mcg (50,000 unit) cap capsule Take 1 capsule by mouth one time a week for 8 doses. ondansetron orally disintegrating (ZOFRAN ODT) 4 mg disintegrating tablet Take 1 tablet by mouth every 6 hours as needed for nausea/vomiting. venlafaxine ER (EFFEXOR XR) 150 mg 24 hr capsule Take 1 capsule by mouth once daily. No current facility-administered medications for this visit. FAMILY HISTORY Problem Relation Age of Onset Narcolepsy Father Social History Tobacco Use Smoking status: Light Tobacco Smoker Smokeless tobacco: Current User Tobacco comment: Pt vapes Vaping Use Vaping Use: current everyday user Substances: Nicotine, Flavoring Devices: Pre-filled pod Substance Use Topics Alcohol use: Never Drug use: Never REVIEW OF SYSTEMS GENERAL: No weight loss, malaise or fevers/chills HEENT: Negative for frequent or significant headaches, No changes in hearing or vision. NECK: Negative for lumps, goiter, pain and significant neck swelling RESPIRATORY: Negative for cough, hemoptysis, wheezing, dyspnea or shortness of breath CARDIOVASCULAR: Negative for chest pain, leg swelling, orthopnea, or palpitations GI: + Nauseous : No history of dysuria, frequency or incontinence MUSCULOSKELETAL: Negative for joint pain or swelling. SKIN: Negative for lesions, rash, and itching ENDOCRINE: Negative for cold or heat intolerance, polyuria, polydipsia and goiter NEURO: No history of headaches, syncope, paralysis, seizures or tremors MOOD: Negative for depression, anxiety, or suicidal ideation. EXAM: BP 110/76 Pulse 68 Resp 16 Wt 72.1 kg (159 lb) LMP 06/30/2021 (Exact Date) SpO2 99% PHYSICAL EXAM: General Appearance: Well appearing, alert, in no acute distress, well-hydrated, well nourished. Skin: Skin color, texture, turgor normal, no suspicious rashes or lesions. Head: Normocephalic, no masses, lesions, tenderness or abnormalities. Eyes: Anicteric sclera. Extraocular movements are intact. Lungs: Lungs clear to auscultation. No wheezing, rhonchi, rales. Heart: RRR without murmur, gallop, or rubs. No ectopy. Extremities: No deformities, edema, skin discoloration, clubbing or cyanosis. Good capillary refill. Peripheral Pulses: Normal, Capillary refill <2secs, strong peripheral pulses, Pulses palpable. ASSESSMENT/PLAN: 1. Abnormal laboratory test result - ICD9: 796.4, ICD10: R89.9 (primary diagnosis) - Per E-Consult with Endo recommending seeing Pediatric Endocrinology. - CONSULT TO PEDS ENDOCRINOLOGY 2. Screening for diabetes mellitus - ICD9: V77.1, ICD10: Z13.1 - Per patient request will check an A1C to rule out concerns for diabetes. - Instructed patient to drink at least 8-10 glasses of water per day and to eat a well balanced diet. - Discussed symptoms of hypoglycemia and treatment options. - HGB A1C Pending test results or sooner as needed. Discussed treatment plan and patient voices understanding. Patient's questions answered appropriately. Medications and potential side effects were discussed and patient voices understanding. Daniela Gaston APRN.CELLAR PACKER This note was partially generated using [employer] voice recognition system. Note was reviewed for accuracy. There may be minor misspellings or grammar miscues with [employer] voice recognition. documented in this encounter [facility] 07-16-2021 History of Presen t illness Narrative Thank you for requesting an Endocrinology E-Consult for your 20 year old female patient, Esha Francois for evaluation/treatment of Lab abnormals. Your clinical question: 20-year-old female with a history of vague symptomology to include excessive daytime sleepiness chronic back and knee pain and narcolepsy. Seen by neurology who ordered significant number of metabolic labs to include amino acids. Amino acid lab work is abnormal. Please provide guidance on lab and metabolic interpretation. Has pending appointment with neuro muscular medicine Comments and recommendations: Our colleagues in pediatric endocrinology would be more familiar with the interpretation of this type of testing (though the patient is now an adult). Consider reaching out directly to Dr. Guicho Marks. He would be able to advise about appropriate referral. There is no billing for this encounter. Best regards, Lew Chavis MD, [place] documented in this encounter [facility] 07-16-2021 Instructions Scott Mercado APRN.HAILEY, [place] - 07/16/2021 2:42 PM EDT Follow up with neuromuscular medicine in August E-consult placed for endocrinology for lab interpretation Consult to physical therapy for chronic low back pain Return to the clinic or seek care at [facility] for any worsening signs or symptoms Healthy Habits: Recommend regular physical activity, nutrition and healthy eating habits. Consume a variety of foods every day focusing on fruits, vegetables and lean meats). Eat foods low in fat, saturated fat and cholesterol. Eat a limited amount of salt and sodium. Drink adequate amounts of water and limit sugary drinks. Exercise portion control in meal selection. Establish a mindset of a wellness approach to health. Thank you for allowing me to provide your care today. I look forward to seeing you again and maintaining your health. Scott Mercado APRN.CHEYENNE HART documented in this encounter [facility] 07-16-2021 History of Presen t illness Narrative Chief Complaint Patient presents with: Recheck: discuss labs HPI Esha Francois is a 20 year old female who presents here today for a several health questions. This is an established patient of Dr. Sofie Tyler MD. New pt to me. Denies any recent ER visits or hospitalizations. Past medical history: SOTO, Depression, snoring Reports: History of chronic low back pain. States over the past 4 years it has worsening knee and chronic low back pain. 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 This is caused her to also have some back pain. Abnormal lab work: Recently referred by her primary care provider to sleep medicine for excessive tiredness and hypersomnolence. PSG completed in March. Patient seen by sleep medicine and Dr. Barriga. Recommend consultation with neurology for further evaluation of her unexplained symptoms. Seen by Dr. Mcmahon of neurology extensive metabolic lab work ordered. See results below. Requesting today for interpretation of abnormalities in her metabolic labs. Past medical history, appointments, medications, allergies reviewed 07/16/2021 Previous Medical History PAST MEDICAL HISTORY Diagnosis Date SOTO (generalized anxiety disorder) Previous Surgical History History reviewed. No pertinent surgical history. Family History FAMILY HISTORY Problem Relation Age of Onset Narcolepsy Father Patient Allergies ALLERGIES No Known Allergies Current Medications Current Outpatient Medications on File Prior to Visit Medication Sig cholecalciferol, Vitamin D3, (VITAMIN D3) 1,250 mcg (50,000 unit) cap capsule Take 1 capsule by mouth one time a week for 8 doses. ondansetron orally disintegrating (ZOFRAN ODT) 4 mg disintegrating tablet Take 1 tablet by mouth every 6 hours as needed for nausea/vomiting. venlafaxine ER (EFFEXOR XR) 150 mg 24 hr capsule Take 1 capsule by mouth once daily. No current facility-administered medications on file prior to visit. Social History Social History Tobacco Use Smoking status: Light Tobacco Smoker Smokeless tobacco: Current User Tobacco comment: Pt vapes Vaping Use Vaping Use: current everyday user Substances: Nicotine, Flavoring Devices: Pre-filled pod Substance Use Topics Alcohol use: Never Drug use: Never Review of Symptoms GENERAL: No weight loss or fevers. Tiredness. MUSCULOSKELETAL: see HPI EXAM: BP 120/76 Pulse 82 Resp 14 Wt 71.2 kg (157 lb) LMP 05/26/2021 (Approximate) SpO2 95% General Appearance: Well appearing, alert, in no acute distress, well-hydrated, well nourished. Skin: Skin color Head: Normocephalic, no masses, lesions Eyes: Anicteric sclera. Extremities: No deformities, edema, skin discoloration. Psych: Attitude - cooperative, easily engaged in conversation Appearance - normal, hygiene and grooming appropriate Affect - euthymic, normal mood Mental status: Alert, attentive. Speech is clear and fluent with good repetition, comprehension Coordination: There are no abnormal or extraneous movements. Gait/Stance: Posture is normal. Gait is steady with normal steps Health Maintenance List MENINGOCOCCAL B: Consider based on risk(1 of 2 - Risk Bexsero 2-dose series) Never done GC (GONORRHEA) SCREENING (18-24) Never done HEPATITIS C SCREENING Never done HIV SCREENING Never done CHLAMYDIA SCREENING (18-24) Never done INFLUENZA(1) Never done COVID-19 VACCINE(2 - Booster for Jhonny series) due on 02/18/2021 DEPRESSION SCREENING due on 09/03/2021 DTAP,TDAP,TD(7 - Td or Tdap) due on 12/07/2024 HPV VACCINE Completed MENINGOCOCCAL CONJUGATE Completed Data reviewed Last 5 Encounter BP Readings: Date: BP: 06/27/2021 124/79 05/01/2021 106/72 03/11/2021 120/70 12/24/2020 114/78 03/06/2020 120/74 BMI Readings from Last 5 Encounters: 06/27/21 : 30.57 kg/m (95 %, Z= 1.62)* 05/28/21 : 28.42 kg/m (92 %, Z= 1.39)* 05/01/21 : 28.52 kg/m (92 %, Z= 1.41)* 04/30/21 : 28.29 kg/m (92 %, Z= 1.38)* 04/07/21 : 28.29 kg/m (92 %, Z= 1.39)* * Growth percentiles are based on [facility] (Girls, 2-20 Years) data. Last 5 Encounter Wt Readings: Date: Wt: 06/27/2021 73.4 kg (161 lb 12.8 oz) (90 %, Z= 1.26)* 05/28/2021 70.5 kg (155 lb 6.4 oz) (86 %, Z= 1.10)* 05/14/2021 71.1 kg (156 lb 12 oz) (87 %, Z= 1.14)* 05/01/2021 70.7 kg (155 lb 12.8 oz) (87 %, Z= 1.12)* 04/30/2021 70.1 kg (154 lb 8.7 oz) (86 %, Z= 1.08)* Medication and allergy list reviewed, reconciled and updated 07/16/2021 Results-Findings * * *Final Report* * * DATE OF EXAM: Jun 27 2021 10:31AM JUAN [id number] - XR LUMBAR 3V AP/LAT/L5-S1 / PROCEDURE REASON: multiple diagnoses * * * * Physician Interpretation * * * * Lumbar spine radiographs HISTORY: 20 years old Clinical information: Chronic midline low back pain without sciatica Chronic midline low back pain without sciatica lower back pain for a long time, no known injury TECHNIQUE: Images: XR LUMBAR 3V AP/LAT/L5-S1 Comparison: None. RESULT: Findings: For the purposes of this dictation the iliac crests are at the L4-5 level. Left-sided convex curvature of the lumbar spine. Narrowing of the L4-5 intervertebral disc space. No fracture. SI joints appear to be intact. Imaged bowel gas pattern is nonobstructed Component Latest Ref Rng & Units 05/30/2021 06/27/2021 Lactate, Urine 2.9 - 47.2 umol/mmolCr 21.5 Pyruvate, Urine 0.1 - 2.6 umol/mmolCr 0.5 2-HydroxyButyrate, Urine 0.0 - 2.7 umol/mmolCr <1.0 Oxalic Acid, Urine 0.7 - 12.4 umol/mmolCr 2.0 3-HydroxyButyrate, Urine 0.1 - 2.6 umol/mmolCr <1.6 2OH-Isovalerate, Urine 0.0 - 0.1 umol/mmolCr <0.1 AcetoAcetate, Urine 0.0 - 0.5 umol/mmolCr <0.9 (H) 3-OH,2-MethylButyrate, Urine 0.0 - 1.3 umol/mmolCr <0.6 Malonate, Urine 0.0 - 0.1 umol/mmolCr 0.0 3-HydroxyIsovalerate, Urine 2.1 - 27.3 umol/mmolCr 48.1 (H) MethylMalonate, Urine 0.0 - 0.6 umol/mmolCr <0.4 Benzoic Acid, Urine 0.0 - 14.6 umol/mmolCr <12.2 EthylMalonate, Urine 0.5 - 6.2 umol/mmolCr 1.4 Succinate, Urine 0.3 - 27.4 umol/mmolCr 3.7 MethylSuccinate, Urine 0.0 - 1.4 umol/mmolCr 0.4 Uracil, Urine 0.0 - 5.1 umol/mmolCr 1.8 Fumarate, Urine 0.3 - 2.6 umol/mmolCr 1.1 IsoButyrylGlycine, Ur 0.0 - 1.2 umol/mmolCr <0.1 Glutarate, Urine 0.0 - 1.4 umol/mmolCr 0.2 3-MethylGlutarate, Urine 0.0 - 0.6 umol/mmolCr 0.7 (H) ButyrylGlycine, Urine 0.0 - 0.7 umol/mmolCr 0.0 2-MethylButyrylGlycine, Ur 0.0 - 0.4 umol/mmolCr <0.1 3MethylGlutaconic Acid, Urine 0.0 - 2.0 umol/mmolCr 1.9 Malate, Urine 0.0 - 1.1 umol/mmolCr 0.6 Adipic Acid, Urine 0.3 - 9.2 umol/mmolCr 2.8 1-Jqa-Zhvjopa, Urine 0.4 - 3.1 umol/mmolCr 1.8 3-MethylCrotonylGlycine,Urine <0.3 umol/mmolCr <0.3 3-HydroxyGlutaric Acid, Urine 0.0 - 0.7 umol/mmolCr 0.0 2-HydroxyGlutaric Acid, Urine 0.6 - 17.7 umol/mmolCr 2.5 Alpha-KetoGlutarate, Urine 0.2 - 42.7 umol/mmolCr 32.0 HexanoylGlycine, Urine 0.0 - 0.1 umol/mmolCr <0.1 4-HydroxyPhenylAcetate, Urine 5.7 - 147.5 umol/mmolCr 28.5 N-AcetylAspartic Acid, Urine 0.1 - 8.9 umol/mmolCr 1.5 Suberic Acid, Urine 0.0 - 7.4 umol/mmolCr 1.0 SuccinylAcetone, Urine <0.4 umol/mmolCr <0.4 2-OxoAdipic Acid, Urine 0.0 - 3.3 umol/mmolCr <1.6 Aconitate, Urine 8.5 - 109.6 umol/mmolCr 17.5 IsoCitric Acid, Urine 9.1 - 271.9 umol/mmolCr 60.7 MethylCitrate, Urine 1.0 - 13.9 umol/mmolCr 4.7 Sebacic Acid, Urine 0.0 - 0.3 umol/mmolCr <3.4 (H) 4-HydroxyPhenyl Lactate,Urine 1.3 - 23.0 umol/mmolCr 4.4 4-HydroxyPhenyl Pyruvate,Urine <=0.0 umol/mmolCr 0.0 N-AcetylTyrosine, Urine 0.0 - 1.2 umol/mmolCr 0.3 SuberylGlycine, Ur <=0.0 umol/mmolCr 0.0 UOA Consultation UOA Review Reviewed by Win Durham MD, Ph.D ([id number]) Creatinine, Ur Random (UCRR) 42.2 - 237.9 mg/dL 197.8 Free L-Carnitine 22 - 54 umol/L 30 Total L-Carnitine 27 - 68 umol/L 38 Free/Total Carnitine Ratio 0.700 - 0.900 0.789 Acetylcarnitine 3,571-17,279 nmol/L 10,649 Propionylcarnitine 155 - 894 nmol/L 311 Iso-/Butyrylcarnitine 50 - 364 nmol/L 59 Isovaleryl-/2-methylbutyrylcar 25 - 225 nmol/L 66 Tiglylcarnitine 1 - 11 nmol/L 4 Hexanoylcarnitine 7 - 69 nmol/L 28 Octanoylcarnitine 22 - 282 nmol/L 107 Decanoylcarnitine 12 - 251 nmol/L 92 Decenoylcarnitine 23 - 323 nmol/L 101 Dodecanoylcarnitine 9 - 114 nmol/L 77 Dodecenoylcarnitine 2 - 42 nmol/L 39 OH-dodecenoylcarnitine 0 - 3 nmol/L 3 8-LF-jixxeasgdynivrkgqgh 1 - 7 nmol/L 4 Tetradecanoylcarnitine 7 - 46 nmol/L 28 Tetradecenoylcarnitine 4 - 87 nmol/L 74 4-IV-gptrufbktudbidhyvupoaa 1 - 12 nmol/L 6 Tetradecadienoylcarnitine 4 - 42 nmol/L 42 3-GG-svskgrmizmqqszmsmgzjvn 1 - 10 nmol/L 4 Hexadecanoylcarnitine 47 - 174 nmol/L 96 Hexadecenoylcarnitine 3 - 22 nmol/L 19 0-NX-ubxdqkracsligtqigixus 0 - 2 nmol/L 2 6-VU-fcwqrjpdsojbywzhzgazq 1 - 7 nmol/L 3 Stearoylcarnitine 19 - 65 nmol/L 26 Oleoylcarnitine 25 - 163 nmol/L 113 5-LJ-cfvnzgmdhnpuwtp 0 - 2 nmol/L 3 (H) Linoleoylcarnitine 11 - 95 nmol/L 65 1-ES-Vilesklxwrovtlzzpq 0 - 1 nmol/L 2 (H) Succinylcarnitine 15 - 59 nmol/L 24 2-IK-piahiyg/isobutyrylcarn 3 - 40 nmol/L 21 Glutarylcarnitine 16 - 126 nmol/L 55 OH-Isoval/7Rek-7-QM-Butyrlcarn 7 - 42 nmol/L 42 Malonylcarnitine 6 - 122 nmol/L 49 Comment (Acylcarnitines) Acylcarnitine Review (ACYLBI) Reviewed by Win Durham MD, Ph.D ([id number]) Taurine 54 - 210 umol/L 57 Aspartic Acid 1 - 25 umol/L 3 Hydroxyproline 0 - 53 umol/L 10 Threonine 60 - 225 umol/L 105 Serine 58 - 181 umol/L 133 Asparagine 35 - 74 umol/L 50 Glutamic Acid 10 - 131 umol/L 40 Glutamine 205 - 756 umol/L 503 Sarcosine <=0 umol/L <1 (H) Alpha-Aminoadipic Acid 0 - 6 umol/L <1 Proline 97 - 329 umol/L 132 Glycine 151 - 490 umol/L 275 Alanine 177 - 583 umol/L 220 Citrulline 12 - 55 umol/L 25 Valine 119 - 336 umol/L 211 Methionine 10 - 42 umol/L 24 Alloisoleucine 0 - 2 umol/L <1 Cystine 5 - 82 umol/L 29 Isoleucine 30 - 108 um/L 56 Leucine 72 - 201 umol/L 111 Tyrosine 34 - 112 umol/L 62 Phenylalanine 35 - 85 umol/L 52 Hydroxylysine <=0 umol/L <1 (H) Ornithine 48 - 195 umol/L 37 (L) Lysine 116 - 296 umol/L 114 (L) Histidine 72 - 124 umol/L 78 Arginine 15 - 128 umol/L 49 Amino Acids Review, Plasma Reviewed by Win Durham MD, Ph.D ([id number]) Amino Acid Consultation, Plasma Taurine, Urine 380-1,850 um/g Cr 840 Aspartic Acid, Urine 60 - 240 um/g Cr 37 (L) Hydroxyproline,Urine 0 - 26 um/g Cr <5 Threonine, Urine 130 - 370 um/g Cr 89 (L) Serine, Urine 240 - 670 um/g Cr 344 Asparagine, Urine 99 - 470 um/g Cr 85 (L) Glutamic Acid, Urine 39 - 330 um/g Cr 15 (L) Glutamine, Urine 190 - 510 um/g Cr 268 Sarcosine, Urine 0 - 80 um/g Cr 24 Alpha-Aminoadipic Acid, Urine 40 - 110 um/g Cr 9 (L) Proline, Urine <=0 um/g Cr <5 (H) Glycine, Urine 730-4,160 um/g Cr 1,078 Alanine, Urine 240 - 670 um/g Cr 185 (L) Citrulline, Urine 8 - 50 um/g Cr 9 Valine, Urine 27 - 260 um/g Cr 47 Methionine, Urine 38 - 210 um/g Cr 4 (L) Cystine, Urine 43 - 210 um/g Cr 26 (L) Isoleucine, Urine 16 - 180 um/g Cr 5 (L) Leucine, Urine 30 - 150 um/g Cr 33 Tyrosine, Urine 90 - 290 um/g Cr 42 (L) Phenylalanine, Urine 51 - 250 um/g Cr 35 (L) Hydroxylysine, Urine 40 - 90 um/g Cr 5 (L) Ornithine, Urine 20 - 80 um/g Cr 5 (L) Lysine, Urine 145 - 634 um/g Cr 64 (L) Histidine, Urine 460-1,430 um/g Cr 226 (L) Arginine, Urine 10 - 90 um/g Cr 9 (L) Review, Urine Amino Acids Reviewed by Win Durham MD, Ph.D ([id number]) Amino Acid Consultation, Urine Protein, Total 6.3 - 8.0 g/dL 6.9 Albumin 3.9 - 4.9 g/dL 4.4 Calcium 8.5 - 10.2 mg/dL 9.5 Bilirubin, Total 0.2 - 1.3 mg/dL 0.4 Alkaline Phosphatase 45 - 87 U/L 62 AST 13 - 35 U/L 23 ALT 7 - 38 U/L 20 Glucose 74 - 99 mg/dL 89 BUN 7 - 21 mg/dL 12 Creatinine 0.58 - 0.96 mg/dL 0.71 Sodium 136 - 144 mmol/L 138 Potassium 3.7 - 5.1 mmol/L 4.2 Chloride 97 - 105 mmol/L 105 CO2 22 - 30 mmol/L 22 Anion Gap 9 - 18 mmol/L 11 eGFR >=60 mL/min/1.73m 127 Sm Antibody Negative Negative Anti-Sm <1.0 AI <0.2 [employer] Antibody QUAL Negative Negative Anti-[employer] <1.0 AI 0.2 SSA Antibody Qual Negative Negative Anti-SSA <1.0 AI <0.2 Anti-SSB <1.0 AI <0.2 SSB Antibody Qual Negative Negative CENTROMERE AB QUAL Negative Negative Centromere Ab <1.0 AI <0.2 Scleroderma Ab Qual Negative Negative Scl-70 Abs, EIA <1.0 AI <0.2 ALLEY 1 ANTIBODY QUAL Negative Negative Alley 1 Antibody <1.0 AI <0.2 Ribosomal [employer] Qualitative Negative Negative Ribosomal [employer] Ab <1.0 AI <0.2 Chromatin Ab Qual Negative Negative Chromatin Ab <1.0 AI <0.2 Lactate 0.5 - 2.2 mmol/L 0.9 Pyruvate 0.03 - 0.10 mmol/L 0.03 Vitamin D 25 Hydroxy 31.0 - 80.0 ng/mL 84.8 (H) 52.0 CK 42 - 196 U/L 34 (L) SMOOTH Negative Negative MUSK Antibody 0.00 - 0.02 nmol/L 0.00 ASSESSMENT/PLAN: 1. Chronic bilateral low back pain without sciatica - ICD9: 724.2, 338.29, ICD10: M54.50, G89.29 (primary diagnosis) Chronic and not well controlled Refer to physical therapy - CONSULT TO PHYSICAL THERAPY 2. Abnormal laboratory test result - ICD9: 796.4, ICD10: R89.9 I reviewed her extensive lab work with the patient that was completed by neurology and sleep medicine. The extensive lab work is out of my area of expertise regarding interpretation. I recommend consultation with endocrinology for further evaluation and interpretation of labs. Additionally she already has a pending neuromuscular medicine consultation for May Follow-up with her primary care provider for any new or developing/emergent symptoms - E-CONSULT ENDOCRINOLOGY 3. Overweight (BMI 25.0-29.9) - ICD9: 278.02, ICD10: E66.3 Chronic and stable weight Recommend regular physical activity, nutrition and healthy eating habits. Consume a variety of foods every day focusing on fruits, vegetables and lean meats). Eat foods low in fat, saturated fat and cholesterol. Eat a limited amount of salt and sodium. Drink adequate amounts of water and limit sugary drinks. Exercise portion control in meal selection. Establish a mindset of a wellness approach to health. - E-CONSULT ENDOCRINOLOGY Scott Mercado APRN.CELLAR PACKER, DNP This note was completed with [employer] dictation software. Note was reviewed for accuracy. There may be minor misspellings or grammar miscues with [employer] Dictation. I spent a total of 21 minutes on the date of the service which included preparing to see the patient, [id number] patient care, completing clinical documentation, performing a medically appropriate examination, counseling and educating the patient/family/caregiver and ordering medications, tests, or procedures. [place] [id number] documented in this encounter [facility] 06-27-2021 Note HNO ID: [id number] Author: POORNIMA Damon Service: Radiology Author Type: Technologist Type: Progress Notes Filed: 06/27/2021 10:33 AM Note Text: Radiology Service Progress Note PATIENT NAME: Esha Francois DATE OF SERVICE: June 27, 2021 TIME: 10:32 AM PATIENT IDENTITY VERIFICATION COMPLETED USING TWO (2) IDENTIFIERS: Name and Date of confirmed by patient verbally. FALL SCREENING: Has the patient had 2 falls in the last year or 1 fall with injury or currently using an Ambulatory Assistive Device (Walker, Cane, Wheelchair, Crutches, etc.)? No PATIENT GENDER DATA: Female. status: : No status: NO. PATIENT RELEVANT IMPLANT DATA REVIEWED: Not Applicable RADIOLOGY DEPARTMENT: General X-ray: Exam(s) Completed: Spine X-Ray(s): Lumbar AP / LAT / L5-S1 PERIPHERAL IV DATA: Not applicable SIGNED BY: POORNIMA Damon June 27, 2021 10:32 AM [facility] Evaluation + Plan note No data available for this section [facility] Diagnosis Abnormal laboratory test result- Primary Other abnormal clinical finding Screening for diabetes mellitus [facility]* Diagnosis 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 documented in this encounter [facility] note* Diagnosis Abnormal laboratory test result- Primary Other abnormal clinical finding Weakness Other malaise and fatigue Carbon dioxide retention Acidosis documented in this encounter [facility] note* Diagnosis Encounter for immunization- Primary Need for other specified prophylactic vaccination against single bacterial disease [facility] Diagnosis Screen for sexually transmitted diseases- Primary Screening examination for venereal disease [facility] Diagnosis Irregular menstrual cycle- Primary Screen for STD (sexually transmitted disease) Screening examination for venereal disease Dysmenorrhea [facility] Diagnosis Somatic dysfunction of lumbar region- Primary Nonallopathic lesion of lumbar region, not elsewhere classified [facility]* Diagnosis Patellofemoral syndrome of both knees- Primary [facility] Diagnosis Anxiety with depression- Primary Mood changes Unspecified episodic mood disorder [facility] Diagnosis Ovarian cyst rupture- Primary Other and unspecified ovarian cyst Patient desires Unspecified procreative management Other acne [facility] Diagnosis Circadian rhythm sleep disorder, delayed sleep phase type- Primary Hypersomnia Hypersomnia, unspecified [facility] Diagnosis Leg length inequality- Primary Unequal leg length (acquired) Strain of lumbar region, subsequent encounter [facility] Diagnosis Strain of lumbar region, subsequent encounter- Primary Leg length inequality Unequal leg length (acquired) [facility] Diagnosis Circadian rhythm sleep disorder, delayed sleep phase type- Primary Disruptions of 24-hour sleep-wake cycle Disruptions of 24 hour sleep wake cycle, unspecified Excessive daytime sleepiness [facility] Diagnosis Strain of lumbar region, subsequent encounter- Primary Leg length inequality Unequal leg length (acquired) [facility] Diagnosis Strain of lumbar region, subsequent encounter- Primary Leg length inequality Unequal leg length (acquired) [facility] Diagnosis Strain of lumbar region, subsequent encounter- Primary Leg length inequality Unequal leg length (acquired) [facility] Diagnosis Missed period- Primary Irregular menstrual cycle [facility]* Diagnosis Sore throat- Primary Acute pharyngitis URI, acute Acute upper respiratory infections of unspecified site [facility] Diagnosis Missed period- Primary Irregular menstrual cycle Secondary amenorrhea Absence of menstruation Irregular menstrual cycle Pelvic pain in female Unspecified symptom associated with female genital organs [facility] Diagnosis Secondary amenorrhea- Primary Absence of menstruation Irregular menstrual cycle [facility] Diagnosis Secondary amenorrhea Absence of menstruation Pelvic pain in female Unspecified symptom associated with female genital organs documented in this encounter [facility] for referral (narrative)* Diagnostic Procedure Only (Routine) - Authorized Specialty Diagnoses / Procedures Referred By Kaylyn t Referred To Contact US IMAGING Diagnoses Secondary amenorrhea Pelvic pain in female Procedures US FEMALE PELVIS TRANSVAG US TRANSVAGINAL Kourtney Okeefe APRN.CNM [address] [place] [address] [place] [id number] Referral ID Status Reason Start Date Expiration Date Visits Requested Visits Authorized [id number] Authorized Auto-Generat ed Referral 05/20/2023 06/18/2024 1 1 [facility] for referral (narrative)* Diagnostic Procedure Only (Routine) - Closed Specialty Diagnoses / Procedures Referred By Kaylyn de luna Referred To Contact US IMAGING Diagnoses Secondary amenorrhea Pelvic pain in female Procedures US FEMALE PELVIS TRANSVAG US TRANSVAGINAL Kourtney Okeefe APRN.CNM [address] [place] [address] [place] [id number] Referral ID Status Reason Start Date Expiration Date V isits Requested Visits Authorized [id number] Closed Auto-Generate d Referral 05/20/2023 06/18/2024 1 1 [facility] Reason for Referral Specialty Diagnoses / Procedures Referred By Kaylyn t Referred To Contact [facility] Diagnoses Chronic bilateral low back pain without sciatica Procedures CONSULT TO PHYSICAL THERAPY PHYSICAL THERAPY EVALUATION HIGH COMPLEX 45 MINS Scott Mercado, SHIPPING/RECEIVING CLERK.CELLAR PACKER, DNP [address] [place] [address] [facility] [address] [address] Referral ID Status Reason Start Date Expiration Date Visits Requested Visits Authorized [id number] Pending Review Auto-Generat ed Referral 07/23/2021 07/16/2022 1 1 Specialty Diagnoses / Procedures Referred By Contac t Referred To Contact Pediatric Endocrinology Diagnoses Abnormal laboratory test result Procedures CONSULT TO PEDS ENDOCRINOLOGY OFFICE/OUTPATIENT [facility] 60-74 MINUTES Daniela Gaston APRN.CELLAR PACKER [address] [place] [address] Referral ID Status Reason Start Date Expiration Date Visits Requested Visits Authorized [id number] Authorized PCP Requested Referral 07/23/2021 07/23/2022 1 1 Specialty Diagnoses / Procedures Referred By Contac t Referred To Contact Pediatric Endocrinology Diagnoses Amino acid deficiency (HCC) Procedures CONSULT TO PEDS ENDOCRINOLOGY OFFICE/OUTPATIENT [facility] MDM 60-74 MINUTES Daniela Gaston APRN.CELLAR PACKER [address] [place] [address] Referral ID Status Reason Start Date Expiration Date Visits Requested Visits Authorized [id number] Authorized PCP Requested Referral 07/25/2021 07/25/2022 1 1 Specialty Diagnoses / Procedures Referred By Contac t Referred To Contact [facility] Diagnoses Patellofemoral syndrome of both knees Procedures CONSULT TO PHYSICAL THERAPY PHYSICAL THERAPY EVALUATION HIGH COMPLEX 45 MINS Luba Galicia PA-C [address] [place] [address] [facility] [address] [address] Referral ID Status Reason Start Date Expiration Date Visits Requested Visits Authorized [id number] Pending Review Auto-Generat ed Referral 02/20/2022 02/20/2023 1 1 Specialty Diagnoses / Procedures Referred By Contac t Referred To Contact Physical Therapy / PHYSICAL THERAPY Diagnoses Leg length inequality Strain of lumbar region, subsequent encounter Procedures CONSULT TO PHYSICAL THERAPY PHYSICAL THERAPY EVALUATION HIGH COMPLEX 45 MINS THERAPEUTIC EXERCISES RE, EA 15 MIN. Waldo Kerr PA-C [address] [place] [address] [facility] [address] [place] [address] Referral ID Status Reason Start Date Expiration Date V isits Requested Visits Authorized [id number] Authorized 04/19/2022 04/18/2023 30 30 Summary Purpose Family History No Family History Records FoundNo Family History Records FoundNo Family History Records FoundNo Family History Records Found Advance Directives No Advanced Directives Records FoundNo Advanced Directives Records FoundNo Advanced Directives Records FoundNo Advanced Directives Records Found Health Concerns Infection Onset Date Last Indicated Resolved Time COVID-19 Confirmed 03/24/2023 03/24/2023 Additional Source Comments Source Comments (unrecognize d section and content) In the event this informatio n is protected by the Federal Confidentiality of Alcohol and Drug Abuse Patient Records regulations: The Federal rules restrict any use of the information to criminally investigate or prosecute any alcohol or drug abuse patient.[facility] the event this information is protected by the Federal Confidentiality of Alcohol and Drug Abuse Patient Records regulations: The Federal rules restrict any use of the information to criminally investigate or prosecute any alcohol or drug abuse patient.[facility] the event this information is protected by the Federal Confidentiality of Alcohol and Drug Abuse Patient Records regulations: The Federal rules restrict any use of the information to criminally investigate or prosecute any alcohol or drug abuse patient.[facility] the event this information is protected by the Federal Confidentiality of Alcohol and Drug Abuse Patient Records regulations: The Federal rules restrict any use of the information to criminally investigate or prosecute any alcohol or drug abuse patient.[facility] the event this information is protected by the Federal Confidentiality of Alcohol and Drug Abuse Patient Records regulations: The Federal rules restrict any use of the information to criminally investigate or prosecute any alcohol or drug abuse patient.[facility] the event this information is protected by the Federal Confidentiality of Alcohol and Drug Abuse Patient Records regulations: The Federal rules restrict any use of the information to criminally investigate or prosecute any alcohol or drug abuse patient.[facility] the event this information is protected by the Federal Confidentiality of Alcohol and Drug Abuse Patient Records regulations: The Federal rules restrict any use of the information to criminally investigate or prosecute any alcohol or drug abuse patient.[facility] the event this information is protected by the Federal Confidentiality of Alcohol and Drug Abuse Patient Records regulations: The Federal rules restrict any use of the information to criminally investigate or prosecute any alcohol or drug abuse patient.[facility] the event this information is protected by the Federal Confidentiality of Alcohol and Drug Abuse Patient Records regulations: The Federal rules restrict any use of the information to criminally investigate or prosecute any alcohol or drug abuse patient.[facility] the event this information is protected by the Federal Confidentiality of Alcohol and Drug Abuse Patient Records regulations: The Federal rules restrict any use of the information to criminally investigate or prosecute any alcohol or drug abuse patient.[facility] the event this information is protected by the Federal Confidentiality of Alcohol and Drug Abuse Patient Records regulations: The Federal rules restrict any use of the information to criminally investigate or prosecute any alcohol or drug abuse patient.[facility] the event this information is protected by the Federal Confidentiality of Alcohol and Drug Abuse Patient Records regulations: The Federal rules restrict any use of the information to criminally investigate or prosecute any alcohol or drug abuse patient.[facility] the event this information is protected by the Federal Confidentiality of Alcohol and Drug Abuse Patient Records regulations: The Federal rules restrict any use of the information to criminally investigate or prosecute any alcohol or drug abuse patient.[facility] the event this information is protected by the Federal Confidentiality of Alcohol and Drug Abuse Patient Records regulations: The Federal rules restrict any use of the information to criminally investigate or prosecute any alcohol or drug abuse patient.[facility] the event this information is protected by the Federal Confidentiality of Alcohol and Drug Abuse Patient Records regulations: The Federal rules restrict any use of the information to criminally investigate or prosecute any alcohol or drug abuse patient.[facility] the event this information is protected by the Federal Confidentiality of Alcohol and Drug Abuse Patient Records regulations: The Federal rules restrict any use of the information to criminally investigate or prosecute any alcohol or drug abuse patient.[facility]In the event this information is protected by the Federal Confidentiality of Alcohol and Drug Abuse Patient Records regulations: The Federal rules restrict any use of the information to criminally investigate or prosecute any alcohol or drug abuse patient.[facility] the event this information is protected by the Federal Confidentiality of Alcohol and Drug Abuse Patient Records regulations: The Federal rules restrict any use of the information to criminally investigate or prosecute any alcohol or drug abuse patient.[facility] the event this information is protected by the Federal Confidentiality of Alcohol and Drug Abuse Patient Records regulations: The Federal rules restrict any use of the information to criminally investigate or prosecute any alcohol or drug abuse patient.[facility] the event this information is protected by the Federal Confidentiality of Alcohol and Drug Abuse Patient Records regulations: The Federal rules restrict any use of the information to criminally investigate or prosecute any alcohol or drug abuse patient.[facility] the event this information is protected by the Federal Confidentiality of Alcohol and Drug Abuse Patient Records regulations: The Federal rules restrict any use of the information to criminally investigate or prosecute any alcohol or drug abuse patient.[facility] the event this information is protected by the Federal Confidentiality of Alcohol and Drug Abuse Patient Records regulations: The Federal rules restrict any use of the information to criminally investigate or prosecute any alcohol or drug abuse patient.[facility] the event this information is protected by the Federal Confidentiality of Alcohol and Drug Abuse Patient Records regulations: The Federal rules restrict any use of the information to criminally investigate or prosecute any alcohol or drug abuse patient.[facility] the event this information is protected by the Federal Confidentiality of Alcohol and Drug Abuse Patient Records regulations: The Federal rules restrict any use of the information to criminally investigate or prosecute any alcohol or drug abuse patient.[facility] the event this information is protected by the Federal Confidentiality of Alcohol and Drug Abuse Patient Records regulations: The Federal rules restrict any use of the information to criminally investigate or prosecute any alcohol or drug abuse patient.[facility] the event this information is protected by the Federal Confidentiality of Alcohol and Drug Abuse Patient Records regulations: The Federal rules restrict any use of the information to criminally investigate or prosecute any alcohol or drug abuse patient.[facility] the event this information is protected by the Federal Confidentiality of Alcohol and Drug Abuse Patient Records regulations: The Federal rules restrict any use of the information to criminally investigate or prosecute any alcohol or drug abuse patient.[facility]In the event this information is protected by the Federal Confidentiality of Alcohol and Drug Abuse Patient Records regulations: The Federal rules restrict any use of the information to criminally investigate or prosecute any alcohol or drug abuse patient.[facility]In the event this information is protected by the Federal Confidentiality of Alcohol and Drug Abuse Patient Records regulations: The Federal rules restrict any use of the information to criminally investigate or prosecute any alcohol or drug abuse patient.[facility]In the event this information is protected by the Federal Confidentiality of Alcohol and Drug Abuse Patient Records regulations: The Federal rules restrict any use of the information to criminally investigate or prosecute any alcohol or drug abuse patient.[facility]In the event this information is protected by the Federal Confidentiality of Alcohol and Drug Abuse Patient Records regulations: The Federal rules restrict any use of the information to criminally investigate or prosecute any alcohol or drug abuse patient.[facility]In the event this information is protected by the Federal Confidentiality of Alcohol and Drug Abuse Patient Records regulations: The Federal rules restrict any use of the information to criminally investigate or prosecute any alcohol or drug abuse patient.[facility]In the event this information is protected by the Federal Confidentiality of Alcohol and Drug Abuse Patient Records regulations: The Federal rules restrict any use of the information to criminally investigate or prosecute any alcohol or drug abuse patient.[facility]In the event this information is protected by the Federal Confidentiality of Alcohol and Drug Abuse Patient Records regulations: The Federal rules restrict any use of the information to criminally investigate or prosecute any alcohol or drug abuse patient.[facility] HospitalIn the event this information is protected by the Federal Confidentiality of Alcohol and Drug Abuse Patient Records regulations: The Federal rules restrict any use of the information to criminally investigate or prosecute any alcohol or drug abuse patient.[facility] the event this information is protected by the Federal Confidentiality of Alcohol and Drug Abuse Patient Records regulations: The Federal rules restrict any use of the information to criminally investigate or prosecute any alcohol or drug abuse patient.[facility] the event this information is protected by the Federal Confidentiality of Alcohol and Drug Abuse Patient Records regulations: The Federal rules restrict any use of the information to criminally investigate or prosecute any alcohol or drug abuse patient.[facility] the event this information is protected by the Federal Confidentiality of Alcohol and Drug Abuse Patient Records regulations: The Federal rules restrict any use of the information to criminally investigate or prosecute any alcohol or drug abuse patient.[facility] Reason for Visit (unrecogniz ed section and content) Specialty Diagnoses / Procedures Referred By Contac t Referred To Contact Physical Therapy / PHYSICAL THERAPY Diagnoses Leg length inequality Strain of lumbar region, subsequent encounter Procedures CONSULT TO PHYSICAL THERAPY PHYSICAL THERAPY EVALUATION HIGH COMPLEX 45 MINS THERAPEUTIC EXERCISES RE, EA 15 MIN. Waldo Kerr, MORENO [address] [place] [address] Pt [facility] [address] [place] [address] Referral ID Status Reason Start Date Expiration Date V isits Requested Visits Authorized [id number] Authorized 04/19/2022 04/18/2023 30 30 Reason Comments Recheck discuss labs Reason Comments Acute Visit diabetes Reason Comments Results Orders Reason Onset Date Comments Refill Request 07/28/2021 Reason Comments Consult Specialty Diagnoses / Procedures Referred By Contac t Referred To Contact Neurology Diagnoses Weakness Carbon dioxide retention Procedures CONSULT TO NEUROLOGY OFFICE/OUTPATIENT [facility] MDM 60-74 MINUTES Gael Monique MD [address] [place] [address] Referral ID Status Reason Start Date Expiration Date V isits Requested Visits Authorized [id number] Closed PCP Requested Referral 06/27/2021 06/27/2022 1 1 Reason Comments Immunizations Reason Comments Discussion Reason Comments Refill Request Reason Comments New Patient Low Back Pain Leg Pain Right upper leg Reason Comments New Knee Pain Reason Comments Behavioral Health Social Work Reason Comments Mood Reason Comments Appointment Reason Comments ED Follow-up Reason Comments Follow Up Low Back Pain Right Hip Pain Left Hip Pain Reason Comments PT Eval Reason Comments Sleep Problem Reason Comments Menstrual Problem Irregular perioid Reason Onset Date Comments Refill Request 02/23/2023 Reason Comments Cough Sore throat x1 day Reason Comments Results Reason Comments Menstrual Problem No period in 3 month s Reason Comments Radiology US Specialty Diagnoses / Procedures Referred By Kaylyn t Referred To Contact US IMAGING Diagnoses Secondary amenorrhea Pelvic pain in female Procedures US FEMALE PELVIS TRANSVAG US TRANSVAGINAL Kourtney [email or web address] [address] [place] [address] [place] [id number] Referral ID Status Reason Start Date Expiration Date V isits Requested Visits Authorized [id number] Closed Auto-Generate d Referral 05/20/2023 06/18/2024 1 1 Care Teams (unrecognized sec tion and content) Natural [employer] Clerk Relationship Specialty Start Date End Date Sofie Tyler MD [address] [place] [address] PCP - General Family Practice 07/10/17 Natural [employer] Clerk Relationship Specialty Start Date End Date Sofie Tyler MD [address] [place] [address] PCP - General Family Practice 07/10/17 Natural Foods Clerk Relationship Specialty Start Date End Date Sofie Tyler MD [address] [place] [address] PCP - General Family Practice 07/10/17 Natural Foods Clerk Relationship Specialty Start Date End Date Sofie Tyler MD [address] [place] [address] PCP - General Family Practice 07/10/17 Natural Foods Clerk Relationship Specialty Start Date End Date Sofie Tyler MD [address] [place] [address] PCP - General Family Practice 07/10/17 Natural Foods Clerk Relationship Specialty Start Date End Date Sofie Tyler MD [address] [place] [address] PCP - General Family Practice 07/10/17 Natural Foods Clerk Relationship Specialty Start Date End Date Sofie Tyler MD [address] [place] [address] PCP - General Family Practice 07/10/17 Natural Foods Clerk Relationship Specialty Start Date End Date Sofie Tyler MD [address] [place] [address] PCP - General Family Medicine 07/10/17 Natural Foods Clerk Relationship Specialty Start Date End Date Sofie Tyler MD [address] [place] [address] PCP - General Family Medicine 07/10/17 Natural Foods Clerk Relationship Specialty Start Date End Date Sofie Tyler MD [address] [place] [address] PCP - General Family Medicine 07/10/17 Natural Foods Clerk Relationship Specialty Start Date End Date Sofie Tyler MD [address] [place] [address] PCP - General Family Medicine 07/10/17 Natural Foods Clerk Relationship Specialty Start Date End Date Sofie Tyler MD [address] [place] [address] PCP - General Family Medicine 07/10/17 Natural Foods Clerk Relationship Specialty Start Date End Date Sofie Tyler MD [address] [place] [address] PCP - General Family Medicine 07/10/17 Natural Foods Clerk Relationship Specialty Start Date End Date Sofie Tyler MD [address] [place] [address] PCP - General Family Medicine 07/10/17 Natural Foods Clerk Relationship Specialty Start Date End Date Sofie Tyler MD [address] [place] [address] PCP - General Family Medicine 07/10/17 Natural Foods Clerk Relationship Specialty Start Date End Date Sofie Tyler MD [address] [place] [address] PCP - General Family Medicine 07/10/17 Natural Foods Clerk Relationship Specialty Start Date End Date Sofie Tyler MD [address] [place] [address] PCP - General Family Medicine 07/10/17 Natural Foods Clerk Relationship Specialty Start Date End Date Sofie Tyler MD [address] [place] [address] PCP - General Family Medicine 07/10/17 Natural Foods Clerk Relationship Specialty Start Date End Date Sofie Tyler MD [address] [place] [address] PCP - General Family Medicine 07/10/17 Natural Foods Clerk Relationship Specialty Start Date End Date Sofie Tyler MD [address] [place] [address] PCP - General Family Medicine 07/10/17 Natural Foods Clerk Relationship Specialty Start Date End Date Sofie Tyler MD [address] [place] [address] PCP - General Family Medicine 07/10/17 Natural Foods Clerk Relationship Specialty Start Date End Date Sofie Tyler MD [address] [place] [address] PCP - General Family Medicine 07/10/17 Natural Foods Clerk Relationship Specialty Start Date End Date Sofie Tyler MD [address] [place] [address] PCP - General Family Medicine 07/10/17 Natural Foods Clerk Relationship Specialty Start Date End Date Sofie Tyler MD [address] [place] [address] PCP - General Family Medicine 07/10/17 Natural Foods Clerk Relationship Specialty Start Date End Date Sofie Tyler MD [address] [place] [address] PCP - General Family Medicine 07/10/17 INFORMATION SOURCE (unrecogn ized section and content) DATE CREATED AUTHOR AUTHOR'S ORGANIZ ATION 04/12/2022 [facility] ([place]) DATE CREATED AUTHOR AUTHOR'S ORGANIZ ATION 12/11/2022 [facility] DATE CREATED AUTHOR AUTHOR'S ORGANIZ ATION 06/04/2023 [facility] Care Team (unrecognized sect ion and content) Care Team Personnel Name: SOFIE TYLER MD Member Role: Primary Care Physician Address: Address: [address] [place] [address]- [place] Name: FRANK Weaver Position: ED RN Member Role: ED RN Name: MISTI REYNA DO Position: Resident Member Role: ED Physician Address: Address: [address] [facility] [place] [address]- [place] Care Team Related Persons Name: LUDIVINA FRANCOIS Address: Home [address], [place] [address] Care Team Personnel Name: SOFIE TYLER MD Member Role: Primary Care Physician Address: Address: [address] [place] [address]- [place] Name: FRANK Meraz Position: RN Member Role: ED RN Name: GEM CAMEJO DO Position: ED Physician Member Role: Attending Physician Address: Address: [address] [facility] [place] [address]- [place] Name: MISTI REYNA DO Position: Resident Member Role: ED Physician Address: Address: [address] [facility] [place] [address]- Care Team Related Persons Name: LUDIVINA FRANCOIS Address: Home [address] [place] [id number] REC[facility] PERTAINING TO PATIENTS WHO ARE OR HAVE BEEN ENROLLED IN A CHEMICAL DEPENDENCY/SUBSTANCEABUSE PROGRAM, SOME INFORMATION MAY BE OMITTED. This clinical summary was aggregated from multiple sources. Caution should be exercised in using it in the provision of clinical care. This summary normalizes information from multiple sources, and as a consequence, information in this document may materially change the coding, format and clinical context of patient data. In addition, data may be omitted in some cases. CLINICAL DECISIONS SHOULD BE BASED ON THE PRIMARY CLINICAL RECORDS. [facility] [employer] [facility]. provides no warranty or guarantee of the accuracy or completeness of information in this document.
== END 2023-06-15 18:01 | disposition home or self-care (01) ==
PROVIDERS: Emergency Provider Emergency Medicine; Visit Provider Emergency Medicine
DX: R10.31 Right lower quadrant pain (principal); R10.32 Left lower quadrant pain; R10.2 Pelvic and perineal pain; R11.0 Nausea
CPT/HCPCS: 74177; 80053; 81001; 84703; 85025; 96374; 96375; 99283; J7030; Q9967; A4216; J2405

== ENCOUNTER 2024-02-10 13:54 | Emergency (ER) | payer MEDICAID, SELFPAY ==
[2024-02-10 13:57] VITALS: BP 120/78; PULSE 90; RESP 18; TEMP 36.4; O2SAT 100; BMI 38.5
[2024-02-10 15:15] LABS: Absolute Lymphocyte Count 2.73 X10^3/uL (0.83-4.51); Basophil# 0.04 X10^3/uL; Basophil% 0.5 % (0-1); Eosinophil# 0.12 X10^3/uL; Eosinophils% 1.6 % (0-5); Hematocrit 45.2 % (37-47); Hemoglobin 14.4 g/dL (12.0-15.0); Lymphocyte # 2.73 X10^3/ul (0.83-4.51); Lymphocyte % 35.7 % (19-41); Mean Corp Hgb Conc 31.9 g/dL (32-36); Mean Corpuscular Volume 84.6 fL (81-99); Mean Platelet Vol. 9.4 fl (6.2-12.0); Monocyte# 0.72 X10^3/uL; Monocyte% 9.4 % (0-10); NRBC Flagged by Analyzer 0 % (0-5); Neutrophil # 4.02 X10^3/uL (2.7-7.7); Neutrophil % 52.5 % (47-70); Platelet Count 375 K/mm3 (150-450); RBC Distribution Width CV 13.2 % (11.6-14.6); RBC Distribution Width SD 40.3 fl (35.1-43.9); Red Blood Count 5.34 M/mm3 (4.2-5.4); White Blood Count 7.7 K/mm3 (4.4-11.0)
[2024-02-10 15:35] LABS: AST(SGOT) 10 U/L (15-37); Alanine Aminotransfer ALT/SGPT 24 U/L (13-56); Albumin, Serum 3.8 g/dL (3.2-5.0); Alkaline Phosphatase 78 U/L (45-117); Anion Gap 3 (5-15); BUN 9 mg/dL (7-18); BUN/Creat Ratio 9.6 RATIO (10-20); Calcium,Total 9.9 mg/dL (8.5-10.1); Chloride 109 mmol/L (98-107); Creatinine, Serum 0.94 mg/dL (0.55-1.02); EST Glomerular Filtration Rate 80 mL/min (>60); Est Glom Filt Rate - Afr Amer 97 mL/min (>60); Estimated Creatinine Clearance 99.02 ml/min; Globulin 3.7 g/dL (2.2-4.2); Glucose 81 mg/dL (74-106); Internal QC Validated? YES +Cl - CLEAR BKGD; Potassium 3.9 mmol/L (3.5-5.1); Pregnancy, Serum, hCG Quali. NEGATIVE Negative; Protein, Total 7.5 g/dL (6.4-8.2); Sodium Level 140 mmol/L (136-145)
[2024-02-10 15:55] VITALS: BP 117/74; PULSE 108; RESP 18; O2SAT 96
[2024-02-10 16:16] LABS: Bacteria 0 SEEN /hpf (None Seen); Mucous, Urine 0 SEEN /hpf (<or=2+); Red Blood Cells-Urine 0 SEEN /hpf (0-5); White Blood Cells 0 SEEN /hpf (0-5)
[2024-02-10 16:18] LABS: Color, Urine Yellow (Yellow); Glucose, Dipstick Normal (Normal); Ketone-Dipstick Negative (Negative); Leukocyte Esterase-Dipstick Negative /ul (Negative); Nitrite-Dipstick Negative (Negative); Occult Blood-Urine Negative /ul (Negative); Protein-Dipstick Negative (Negative); Specific Gravity, Urine 1.015 (1.002-1.030); Urine Bilirubin Dipstick Negative (Negative); Urine Clarity Clear (Clear); Urine Urobilinogen 1 mg/dl (Normal)
--- NOTE | 2024-02-10 16:19 | ED.VIS.GI ---
HPI HPI - GI History of Present Illness Chief Complaint: Abd Pain Informant: patient Narrative Narrative: 23-year-old female states she had not had a menstrual cycle for 3 months, her [employer] put her on progesterone, then when she stopped it she started having her period but instead of the usual 3 to 4 days last ever 8 days and the bleeding was very heavy with some clots and cramping. The cramping was fairly severe. She states the bleeding stopped 3 to 4 days ago, but the cramping persist although it is not as bad. She states she is here in the ER out of concern because the cramping has persisted beyond her bleeding which is unusual. 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 She denies any syncope or presyncope. She denies any nausea or vomiting. Normal bowel movements. No vaginal discharge just the bleeding, which is resolved. She denies any problems urinating. No systemic symptoms or fevers. PFSH PFSH Home Medications ?Medication ?Instructions ?Recorded ?Last Taken ?Type venlafaxine 150 mg 150 mg PO DAILY 06/09/21 Unknown History capsule,extended release 24 hr (Effexor XR) dicyclomine 10 mg capsule 20 mg (2 x 10 mg) PO TIDAC #20 05/19/22 Unknown Rx CAPSULES ondansetron 4 mg disintegrating 4 mg PO Q8H PRN PRN Nausea #10 tabs 05/19/22 Unknown Rx tablet lamotrigine 200 mg tablet 200 mg PO DAILY 06/15/23 Unknown History Allergy/AdvReac Type Severity Reaction Status Date / Time No Known Allergies Allergy Verified 02/10/24 13:56 Social History Smoking Status: Never smoker ROS ROS ED Constitutional Constitutional ED: Denies chills or fever(s) Eyes Eyes: Denies change in vision or diplopia ENT ENT ED: Denies rhinorrhea or sore throat Cardiovascular Cardiovascular: Denies chest pain or palpitations Respiratory/Chest Respiratory/Chest: Denies cough or dyspnea Gastrointestinal Gastrointestinal: Reports abdominal pain; Denies diarrhea, nausea or vomiting Genitourinary Genitourinary ED: Denies dysuria or hematuria Musculoskeletal Musculoskeletal: Denies back pain or neck pain Integumentary Denies abscess or rash Neurologic Neurologic: Denies headache(s), paresthesias or weakness Psychiatric Psychiatric: Denies anxiety or suicidal thoughts EXAM Physical Exam Const Vital Signs: 02/10/24 13:57 02/10/24 15:55 02/10/24 17:00 Temperature 97.5 F L Temperature Source Temporal Pulse Rate 90 108 H Respiratory Rate 18 18 Blood Pressure 120/78 117/74 122/82 H Blood Pressure Mean 92 88 95 Pulse Ox 100 96 Oxygen Delivery Method Room Air Room Air Room Air Positive well nourished and well developed General Appearance ED: well developed and NAD HEENT Reports moist mucous membranes normocephalic and atraumatic Eyes PERRL and EOMs intact bilaterally Neck full ROM and supple Resp normal respiratory effort and clear to auscultation bilaterally Cardio regular rate, regular rhythm and no murmurs GI non-distended GI Narrative: Mild suprapubic tenderness, no guarding or rebound no other areas of tenderness including both lower quadrants. Auscultation: normoactive bowel sounds Palpation: soft Back/Spine no CVA tenderness General Back: other FROM Extremity normal to inspection General Extremety ED: Negative for edema, pulses abnormal or tenderness General Extremity: Negative for edema or pulses abnormal Neuro oriented x3, CN's II-XII intact bilaterally and no sensory deficits noted Sensorium / Orientation: awake and alert Motor Exam: strength 5/5 throughout Skin no rashes or lesions noted and no wounds MDM MDM MDM Narrative Medical decision making narrative: Serum qualitative is negative. Her hemoglobin is 14.4, excellent. This is compared with 15 earlier in the year. Her vital signs are normal and she was well-appearing. Based on all of this I do not think she needs an emergent ultrasound. Waiting for urine to come back, in the meantime she is getting Toradol for her pain. This did help. Her labs are normal. I offered an ultrasound, she does not want to wait and is comfortable with following up as an outpatient. Hopefully the pain goes away on its own if it does not or gets significantly worse she is always welcome to return and we be happy to do an ultrasound Lab Data Attestation: I reviewed the patient's lab results. Labs: Laboratory Results - last 24 hr 02/10/24 02/10/24 15:00 16:06 WBC 7.7 RBC 5.34 Hgb 14.4 Hct 45.2 MCV 84.6 MCH 27.0 MCHC 31.9 L RDW Std Deviation 40.3 RDW Coeff of Rae 13.2 Plt Count 375 MPV 9.4 Immature Gran % (Auto) 0.300 Neut % (Auto) 52.5 Lymph % (Auto) 35.7 Evans % (Auto) 9.4 Eos % (Auto) 1.6 Baso % (Auto) 0.5 Absolute Neuts (auto) 4.0 Absolute Lymphs (auto) 2.73 Nucleated RBC % 0 Sodium 140 Potassium 3.9 Chloride 109 H Carbon Dioxide 28.0 Anion Gap 3 L BUN 9 Creatinine 0.94 Estim Creat Clear Calc 99.02 Est GFR (MDRD) Af Amer 97 Est GFR (MDRD) Non-Af 80 BUN/Creatinine Ratio 9.6 L Glucose 81 Calcium 9.9 Total Bilirubin 0.40 AST 10 L ALT 24 Alkaline Phosphatase 78 Total Protein 7.5 Albumin 3.8 Globulin 3.7 Albumin/Globulin Ratio 1.0 Serum , Qual NEGATIVE Urine Color Yellow Urine Clarity Clear Urine pH 7.0 Ur Specific Isabel 1.015 Urine Protein Negative Urine Glucose (UA) Normal Urine Ketones Negative Urine Occult Blood Negative Urine Nitrite Negative Urine Bilirubin Negative Urine Urobilinogen 1 H Ur Leukocyte Esterase Negative Urine RBC 0 SEEN Urine WBC 0 SEEN Ur Squamous Epith Cells 0-5 SEEN Urine Bacteria 0 SEEN Urine Mucus 0 SEEN Discharge Plan Triage Chief Complaint: Abd Pain ED Provider: Bruce Law Dx/Rx/DC Orders Clinical Impression: Acute pelvic pain, female Instructions: ED Pelvic Pain, Unknown Cause Prescriptions: No Action venlafaxine [Effexor XR] 150 mg capsule,extended release 24hr 150 mg PO DAILY Patient Comments: take 1 capsule by mouth once daily ondansetron 4 mg tablet,disintegrating 4 mg PO Q8H PRN PRN (Reason: Nausea) Qty: 10 0RF dicyclomine 10 mg capsule 20 mg PO TIDAC Qty: 20 0RF lamotrigine 200 mg tablet 200 mg PO DAILY Patient Comments: take 1 tablet by mouth once daily Primary Care Provider: Care Physician,No Primary Referrals: Alex Aguilar MD [Med Staff - Active Staff] - 3-5 Days if not improving Print Language: Prydeinig Disposition Disposition: Home, Self Care
[2024-02-10] MEDS: Ketorolac 30 MG/ML Syringe IV (16:40)
[2024-02-10 16:45] LABS: Squamous Epithelial Cells - UA 0-5 SEEN /hpf (5-10)
[2024-02-10 17:00] VITALS: BP 122/82
[2024-02-10 18:23] VITALS: BP 121/79; PULSE 82; RESP 18; TEMP 36.7
== END 2024-02-10 18:24 | disposition home or self-care (01) ==
PROVIDERS: Emergency Provider Emergency Medicine; Visit Provider Emergency Medicine
DX: R10.2 Pelvic and perineal pain (principal); Z79.899 Other long term (current) drug therapy
CPT/HCPCS: 80053; 81001; 84703; 85025; 96374; 99282; A4216

== ENCOUNTER 2024-08-26 13:18 | Emergency (ER) | payer MEDICAID, SELFPAY ==
[2024-08-26 13:18] VITALS: BP 130/92; PULSE 88; RESP 16; TEMP 36.6; O2SAT 100; BMI 35.4
--- NOTE | 2024-08-26 13:30 | EDS_ITS ---
HPI HPI - GI History of Present Illness Chief Complaint: Abd Pain Informant: patient and spouse/S.O. Narrative Narrative: 23-year-old female woke up this morning with diffuse significant pelvis pain around 2 AM, 11 hours ago. She states this is similar pain to when she had a ruptured ovarian cyst in the past except it is not lateralizing this time and is throughout her pelvis. Nausea but no vomiting although she states she has had intermittent vomiting for the last couple weeks. She states she is about 3 days late on her menstrual cycle did a home test that was negative. She denies any abnormal vaginal discharge or bleeding today. She denies any fevers or chills. Pain does not go into her back. No history of abdominal surgeries. PFSH PFSH Home Medications ?Medication ?Instructions ?Recorded ?Last Taken ?Type venlafaxine 150 mg 150 mg PO DAILY 06/09/21 Unk nown History capsule,extended release 24 hr (Effexor XR) dicyclomine 10 mg capsule 20 mg (2 x 10 mg) PO TIDAC # 20 05/19/22 Unknown Rx CAPSULES ondansetron 4 mg disintegrating 4 mg PO Q8H PRN PRN Na usea #10 tabs 05/19/22 Unknown Rx tablet lamotrigine 200 mg tablet 200 mg PO DAILY 06/15/23 Unk nown History Allergy/AdvReac Type Severity Reaction Status Date / Time No Known Allergies Allergy Verified 08/26/24 13:18 Social History Smoking Status: Current every day smoker tobacco type: e-cigarettes ROS ROS ED Constitutional Constitutional ED: Denies chills or fever(s) Eyes Eyes: Denies change in vision or diplopia ENT ENT ED: Denies rhinorrhea or sore throat Cardiovascular Cardiovascular: Denies chest pain or palpitations Respiratory/Chest Respiratory/Chest: Denies cough or dyspnea Gastrointestinal Gastrointestinal: Reports abdominal pain and nausea; Denies diarrhea or vomiting Genitourinary Genitourinary ED: Reports other Details: no abn vag d/c ; Denies dysuria or hematuria Musculoskeletal Musculoskeletal: Reports back pain; Denies neck pain Integumentary Denies abscess or rash Neurologic Neurologic: Denies headache(s), paresthesias or weakness Psychiatric Psychiatric: Denies anxiety or suicidal thoughts EXAM Physical Exam Const Vital Signs: 08/26/24 13:18 Temperature 97.8 F Temperature Source Oral Pulse Rate 88 Respiratory Rate 16 Blood Pressure 130/92 H Blood Pressure Mean 104 Pulse Ox 100 Oxygen Delivery Method Room Air Positive well nourished and well developed General Appearance ED: well developed and NAD HEENT Reports moist mucous membranes normocephalic and atraumatic Eyes PERRL and EOMs intact bilaterally Neck full ROM and supple Resp normal respiratory effort and clear to auscultation bilaterally Cardio regular rate, regular rhythm and no murmurs GI non-distended GI Narrative: Tender throughout pelvis without guarding or rebound Auscultation: normoactive bowel sounds Palpation: soft Back/Spine no CVA tenderness General Back: other FROM Extremity normal to inspection General Extremety ED: Negative for edema, pulses abnormal or tenderness General Extremity: Negative for edema or pulses abnormal Neuro oriented x3, CN's II-XII intact bilaterally and no sensory deficits noted Sensorium / Orientation: awake and alert Motor Exam: strength 5/5 throughout Psych thought process normal Mood & Affect: anxious and tearful Skin no rashes or lesions noted and no wounds MDM MDM MDM Narrative Medical decision making narrative: In order to rule out ectopic, serum qualitative was obtained it is negative ruling that out essentially. Blood counts are good, making TOA less likely, but given the possibility of torsion because of how much pain she is in, transvaginal ultrasound is obtained. She is feeling much better after IV Toradol and Zofran. I reviewed the ultrasound images and the result which I agree with, it is essentially normal. It is noted that there was some free fluid in the cul-de-sac, this could be consistent with a ruptured ovarian cyst, which with the findings patient states she had before when she had this pain. Since she has no symptoms of an STI or leukocytosis I do not think she has PID. She is comfortable going home and treating with [id number] medications and following up if pain persists. Lab Data Attestation: I reviewed the patient's lab results. Labs: Laboratory Results - last 24 hr 08/26/24 08/26/24 13:42 14:01 WBC 6.3 RBC 5.24 Hgb 14.4 Hct 44.5 MCV 84.9 MCH 27.5 MCHC 32.4 RDW Std Deviation 42.4 RDW Coeff of Rae 13.6 Plt Count 344 MPV 9.5 Immature Gran % (Auto) 0.300 Neut % (Auto) 50.7 Lymph % (Auto) 37.8 [place] % (Auto) 9.3 Eos % (Auto) 1.1 Baso % (Auto) 0.8 Absolute Neuts (auto) 3.2 Absolute Lymphs (auto) 2.36 Nucleated RBC % 0 Sodium 140 Potassium 4.2 Chloride 109 H Carbon Dioxide 20.1 L Anion Gap 11 BUN 5 Creatinine 0.78 Estim Creat Clear Calc 117.54 Est GFR (MDRD) Non-Af 110 BUN/Creatinine Ratio 6.6 L Glucose 106 H Calcium 9.4 Serum , Qual NEGATIVE Urine Color Yellow Urine Clarity Clear Urine pH 5.0 Ur Specific [place] 1.020 Urine Protein 15 H Urine Glucose (UA) Normal Urine Ketones 5 H Urine Occult Blood Negative Urine Nitrite Negative Urine Bilirubin Negative Urine Urobilinogen Normal Ur Leukocyte Esterase Negative Urine RBC 0 SEEN Urine WBC 0 SEEN Ur Squamous Epith Cells 0-5 SEEN Urine Bacteria 0 SEEN Urine Mucus 0 SEEN Radiography Diagnostic Testing: Clinical Impression(s) from Imaging Studies Transvaginal US 08/26/24 14:07 IMPRESSION: No acute findings in the pelvis. Reading Location: [facility] Discharge Plan Triage Chief Complaint: Abd Pain ED Provider: Bruce Law Dx/Rx/DC Orders Clinical Impression: Pelvic pain in female Instructions: Treating a Ruptured Ovarian Cyst Prescriptions: No Action venlafaxine [Effexor XR] 150 mg capsule,extended release 24hr 150 mg PO DAILY Patient Comments: take 1 capsule by mouth once daily ondansetron 4 mg tablet,disintegrating 4 mg PO Q8H PRN PRN (Reason: Nausea) Qty: 10 0RF dicyclomine 10 mg capsule 20 mg PO TIDAC Qty: 20 0RF lamotrigine 200 mg tablet 200 mg PO DAILY Patient Comments: take 1 tablet by mouth once daily Primary Care Provider: Care Physician,No 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
[2024-08-26] MEDS: Ketorolac 30 MG/ML Syringe IV (13:40)
[2024-08-26] MEDS: Ondansetron 4 MG/2 ML Vial IV (13:40)
[2024-08-26 13:49] LABS: Absolute Lymphocyte Count 2.36 X10^3/uL (0.83-4.51); Absolute Neutrophil Count 3.2 X10^3/uL (2.0-7.7); Basophil# 0.05 X10^3/uL; Basophil% 0.8 % (0-1); Eosinophil# 0.07 X10^3/uL; Eosinophils% 1.1 % (0-5); Hematocrit 44.5 % (37-47); Hemoglobin 14.4 g/dL (12.0-15.0); Lymphocyte # 2.36 X10^3/ul (0.83-4.51); Lymphocyte % 37.8 % (19-41); Mean Corp Hgb Conc 32.4 g/dL (32-36); Mean Corpuscular Hgb 27.5 pg (27.0-32.0); Mean Corpuscular Volume 84.9 fL (81-99); Mean Platelet Vol. 9.5 fl (6.2-12.0); Monocyte# 0.58 X10^3/uL; Monocyte% 9.3 % (0-10); NRBC Flagged by Analyzer 0 % (0-5); Neutrophil # 3.17 X10^3/uL (2.7-7.7); Neutrophil % 50.7 % (47-70); Platelet Count 344 K/mm3 (150-450); RBC Distribution Width CV 13.6 % (11.6-14.6); RBC Distribution Width SD 42.4 fl (35.1-43.9); Red Blood Count 5.24 M/mm3 (4.2-5.4); White Blood Count 6.3 K/mm3 (4.4-11.0)
[2024-08-26 13:58] LABS: Internal QC Validated? YES +Cl - CLEAR BKGD; Pregnancy, Serum, hCG Quali. NEGATIVE Negative
--- NOTE | 2024-08-26 14:07 | US_ITS ---
EXAM: US Pelvis Transabdominal and Transvaginal, Complete CLINICAL INDICATION: SEVERE PAIN TECHNIQUE: Real-time complete transabdominal and transvaginal pelvic ultrasound with image documentation. Transvaginal imaging was used for better evaluation of the endometrium and adnexa. COMPARISON: No relevant prior studies available. FINDINGS: UTERUS/CERVIX: Unremarkable. No myometrial mass. The uterus measures 6.8 x 4.0 x 3.3 cm. The endometrial stripe measures 0.7 cm in thickness. RIGHT OVARY: Unremarkable. Normal blood flow. The right ovary measures 2.8 x 3.0 x 1.9 cm. LEFT OVARY: Unremarkable. Normal blood flow. The left ovary measures 2.6 x 2.8 x 2.5 cm. FREE FLUID: Fluid in the cul-de-sac. BLADDER: Unremarkable as visualized. Wall is normal thickness for degree of distention. US/Transvaginal Non- IMPRESSION: No acute findings in the pelvis. Reading Location: [id number]
[2024-08-26 14:20] LABS: Bacteria 0 SEEN /hpf (None Seen); Mucous, Urine 0 SEEN /hpf (<or=2+); Red Blood Cells-Urine 0 SEEN /hpf (0-5); White Blood Cells 0 SEEN /hpf (0-5)
[2024-08-26 14:21] LABS: Color, Urine Yellow (Yellow); Glucose, Dipstick Normal (Normal); Ketone-Dipstick 5 mg/dl (Negative); Leukocyte Esterase-Dipstick Negative /ul (Negative); Nitrite-Dipstick Negative (Negative); Occult Blood-Urine Negative /ul (Negative); Protein-Dipstick 15 mg/dl (Negative); Urine Bilirubin Dipstick Negative (Negative); Urine Clarity Clear (Clear); Urine Urobilinogen Normal (Normal)
[2024-08-26 14:23] LABS: Anion Gap 11 (5-15); BUN 5 mg/dL (4-19); BUN/Creat Ratio 6.6 RATIO (10-20); Calcium,Total 9.4 mg/dL (7.6-11.0); Carbon Dioxide 20.1 mmol/L (21.0-32.0); Chloride 109 mmol/L (98-108); Creatinine, Serum 0.78 mg/dL (0.70-1.20); EST Glomerular Filtration Rate 110 (>60); Estimated Creatinine Clearance 117.54 ml/min (50-250); Glucose 106 mg/dL (70-99); Potassium 4.2 mmol/L (3.3-5.1); Sodium Level 140 mmol/L (133-145)
[2024-08-26 14:33] LABS: Squamous Epithelial Cells - UA 0-5 SEEN /hpf (5-10)
[2024-08-26 15:41] VITALS: BP 130/92; PULSE 88; RESP 16; TEMP 36.6; O2SAT 100
== END 2024-08-26 15:42 | disposition home or self-care (01) ==
PROVIDERS: Emergency Provider Emergency Medicine; Visit Provider Emergency Medicine
DX: R10.2 Pelvic and perineal pain (principal); F17.290 Nicotine dependence, other tobacco product, uncomplicated
CPT/HCPCS: 76830; 80048; 81001; 84703; 85025; 93976; 96374; 96375; 96376; 99285; A4216; J2405

== ENCOUNTER 2024-12-23 22:27 | Emergency (ER) | payer MEDICAID, SELFPAY ==
[2024-12-23 22:28] VITALS: BP 126/75; PULSE 88; RESP 16; TEMP 37.1; O2SAT 100; BMI 36.8
--- OUTSIDE RECORDS SUMMARY | 2024-12-23 22:42 | XMS RPT_ITS | CCD ---
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 CARRIZALES Primary Care Unavail GEM Schultz Attending Unavailable [address], DR. CARRIZALES Primary Care Unavail MIMA Chatterjee MD Attending Unavail teodora TYLER MD., DR. CARRIZALES Primary Care Unavail MERCEDES Shah MD Attending Unavailable Sofie Tyler MD Primary Care Provider SOFIE TYLER Primary Care Unavailable SUSANNA BARRIGA Attending Unavailable SOFIE TYLER Primary Care Unavailable SUSANNA BARRIGA Referring Unavailable SUSANNA BARRIGA Attending Unavailable SOFIE TYLER Primary Care Unavailable Unavailable Primary Care Provider Unavailmary e Unavailable Primary Care Provider UnavailSofie Montano MD Primary Care Provider [phone] Care Physician, No Primary Primary Care Provider Unavailable Dr. Bruce Law MD Emergency Provider Care Physician, No Primary Primary Care Unava ilable Bruce Law Attending Unavailable Care Physician, No Primary Primary Care Unava ilable Bruce Law Attending Unavailable Care Physician, No Primary Primary Care Unava ilable Chay Crain Referring Unavailable Chay Crain Attending Unavailable Care Physician, No Primary Primary Care Unava ilable Chay Crain Attending Unavailable Care Physician, No Primary Referring Unava ilable Chay Crain Attending Unavailable Care Physician, No Primary Referring Unava ilable Care Physician, No Primary Primary Care Unava ilable NI DAMIAN Attending Unavailable PLOTTS, KOURTNEY Referring Unavailable CHANG TOM Attending Unavailable CHANG TOM Referring Unavailable CASTILLO CAMERON Attending Unavailable NEYHART ACOSTA, RHIANNON Attending Unavail able NEYHART ACOSTA, RHIANNON Referring Unavail able NEYHART ACOSTA, RHIANNON Referring Unavail able PLOTTS, KOURTNEY Attending Unavailable PLOTTS, KOURTNEY Attending Unavailable LAURA GARCIA Attending Unavailable NEYHART ACOSTA, RHIANNON Attending Unavail able NEYHART ACOSTA, RHIANNON Referring Unavail able NEYHART ACOSTA, RHIANNON Attending Unavail able NEYHART ACOSTA, RHIANNON Referring Unavail able SHREYAS GARCIA Attending Unavailable PLOTTS, KOURTNEY Attending Unavailable PLOTTS, KOURTNEY Referring Unavailable PLOTTS, KOURTNEY Referring Unavailable PLOTTS, KOURTNEY Referring Unavailable PLOTTS, KOURTNEY Referring Unavailable Medications Current Medications Medication Drug Class(es) Dates Sig (Normalized) Sig (Original) aspirin 81 mg delayed release oral tablet (10 sources) Platelet Aggregation Inhibitor, Nonsteroidal Anti-inflammatory Drug Start: 09-27-2024 take 1 tablet by mouth once daily aspirin, enteric coated (ECOTRIN LOW STRENGTH) 81 mg EC tablet Indications: with uncertain dates, antepartum (HCC) Take 1 tablet by mouth once daily. 90 tablet 3 09/27/2024 Active dicyclomine hydrochloride 10 mg oral capsule (4 sources) Anticholinergic Start: 05-19-2022 take 2 capsules by mouth three times daily before mealtime Dicyclomine 10 mg capsule Active 20 mg PO THREE TIMES DAILY BEFORE MEALS May 19, 2022 1:00am Start: 05-19-2022 take 20 mg by mouth three times daily before mealtime Dicyclomine Active 20 MG PO THREE TIMES DAILY BEFORE MEALS May 19, 2022 12:00am Ethinyl Estradiol / norgestimate (3 sources) Progestin, Estrogen Start: 01-20-2024 take 1 tablet by mouth once daily norgestimate 0.25 mg-ethinyl estradiol 35 mcg (SPRINTEC) 0.25-35 mg-mcg per tablet Take 1 tablet by mouth once daily. 28 tablet 14 01/20/2024 Active ibuprofen 600 mg oral tablet (2 sources) Nonsteroidal Anti-inflammatory Drug Start: 08-15-2020 ibuprofen 600 mg oral tablet Dose : 600 mg = 1 tab(s), Oral, QID, PRN as needed for pain, # 40 tab(s), 0 Refill(s) Start Date: 07/14/21 Status: Ordered lamoTRIgine 200 mg oral tablet (20 sources) Mood Stabilizer, Anti-epileptic Agent Start: 08-28-2024 End: 11-13-2024 take 1 tablet by mouth once daily lamoTRIgine (LAMICTAL) 200 mg tablet TAKE 1 TABLET BY MOUTH ONCE DAILY 90 tablet 11/13/2024 Active Start: 06-09-2023 take 1 tablet by erasmo th once daily lamoTRIgine (LAMICTAL) 200 mg tablet take 1 tablet by mouth once daily 90 tablet 05/22/2024 Active Start: 03-30-2023 take 1 tablet by erasmo th once daily lamoTRIgine (LAMICTAL) 150 mg tablet take 1 tablet by mouth once daily 90 tablet 0 03/30/2023 Active Start: 01-06-2023 take 1 tablet by erasmo th once daily lamoTRIgine (LAMICTAL) 150 mg tablet Take 1 tablet by mouth once daily. 90 tablet 0 01/06/2023 Active Start: 11-14-2022 take 1 tablet by erasmo th once daily lamoTRIgine (LAMICTAL) 100 mg tablet Take 1 tablet by mouth once daily. 30 tablet 2 11/14/2022 Active Start: 11-14-2022 lamoTRIgine (L AMICTAL) 25 mg tablet Take 1 tablet by mouth once daily. For 14 days then increase to 2 tablets for 14 days 42 tablet 0 11/14/2022 Active Comment on above: Take 1 tablet by erasmo th once daily. For 14 days then increase to 2 tablets for 14 days Take 1 tablet by erasmo th once daily. take 1 tablet by erasmo th once daily mefenamic acid 250 mg oral capsule (20 sources) Nonsteroidal Anti-inflammatory Drug Start: 12-19-19 End: 02-24-20 23 take 1 capsule by mouth every six hours as needed Mefenamic Acid 250 mg cap Take 1 capsule by mouth every 6 hours as needed. 30 capsule 6 02/24/2023 Active Comment on above: Take 1 capsule by mo [facility] every 6 hours as needed. ondansetron 4 mg disintegrating oral tablet (20 sources) Serotonin-3 Receptor Antagonist Start: 05-19-19 take 1 tablet by mouth every eight hours as needed for nausea Ondansetron 4 mg tablet,disintegrati ng Active 4 mg PO EVERY 8 HOURS NEEDED as needed for Nausea May 19, 2022 1:00am Start: 03-11-2021 End: 03-24-2022 take 1 tablet by mouth every six hours as needed for nausea and nausea ondansetron orally disintegrating (ZOFRAN ODT) 4 mg disintegrating tablet Indications: Nausea Take 1 tablet by mouth every 6 hours as needed for nausea/vomiting. 30 tablet 5 03/11/2021 03/24/2022 Discontinued Comment on above: Take 1 tablet by [facility] every 6 hours as needed for nausea/vomiting. predniSONE 20 mg oral tablet (1 source) Start: End: take 2 tablets by mouth once daily predniSONE (DELTASONE) 20 mg tablet Indications: Sore throat Take 2 tablets by mouth once daily for 5 days. 10 tablet 03/01/2024 03/06/2024 Active prental multivitamin ( VITAMIN) 27 mg iron- 800 mcg tablet (5 sources) Start: take 1 tablet by mouth once daily prental multivitamin ( VITAMIN) 27 mg iron- 800 mcg tablet Take 1 tablet by mouth once daily. 30 tablet 11 10/18/2024 Active sulfamethoxazole 800 mg / trimethoprim 160 mg oral tablet (2 sources) Dihydrofolate Reductase Inhibitor Antibacterial, Sulfonamide Antimicrobial Start: End: take 1 tablet by mouth twice daily Bactrim DS 800 mg-160 mg oral tablet Dose = 1 tab(s), Oral, BID, X 7 day(s), # 14 tab(s), 0 Refill(s), 77.3 Start Date: 04/01/22 Stop Date: 04/08/22 Status: Ordered 24 hr venlafaxine 150 mg extended release oral capsule (20 sources) Serotonin and Norepinephrine Reuptake Inhibitor Start: take 1 capsule by mouth once daily venlafaxine ER (EFFEXOR XR) 150 mg 24 hr capsule Take 1 capsule by mouth once daily. 90 capsule 1 08/21/2024 Active Start: 03-07-2024 take 1 capsule by mo uth once daily venlafaxine ER (EFFEXOR XR) 150 mg 24 hr capsule Take 1 capsule by mouth once daily. 90 capsule 1 03/07/2024 Active Start: 06-09-2023 take 1 capsule by mo uth once daily venlafaxine ER (EFFEXOR XR) 150 mg 24 hr capsule Take 1 capsule by mouth once daily. 90 capsule 1 06/09/2023 Active Start: 05-10-2023 take 1 capsule by mo uth once daily venlafaxine ER (EFFEXOR XR) 150 mg 24 hr capsule take 1 capsule by mouth once daily 90 capsule 1 05/10/2023 Active Start: 03-24-2022 take 1 capsule by mo uth once daily venlafaxine ER (EFFEXOR XR) 75 mg 24 hr capsule Indications: Anxiety with depression , Mood changes Take 1 capsule by mouth once daily. Take along with 150 mg dose 30 capsule 2 03/24/2022 Active Start: 12-24-2020 End: 01-19-2022 take 1 capsule by mouth once daily venlafaxine ER (EFFEXOR XR) 150 mg 24 hr capsule Take 1 capsule by mouth once daily. 90 capsule 1 11/14/2022 Active Comment on above: Take 1 capsule by mo uth once daily. take 1 capsule by mo uth once daily Take 1 capsule by mo uth once daily. Take along with 150 mg dose Completed/Discontinued Medications Medication Drug Class(es) Dates Sig (Normalized) Sig (Original) Ascorbic Acid (10 sources) Vitamin C End: 12-20-2024 ascorbic acid (VITAMIN C ORAL) Take by mouth. 12/20/2024 Discontinued (Course of therapy completed) ascorbic acid (V ITAMIN C ORAL) Take by mouth. Active cholecalciferol 1.25 mg oral capsule (20 sources) Vitamin D Start: 04-08-2021 End: 03-24-2022 take 1 capsule by mouth every week cholecalciferol, Vitamin D3, (VITAMIN D3) 1,250 mcg (50,000 unit) cap capsule Indications: Vitamin D deficiency Take 1 capsule by mouth one time a week for 8 doses. 8 capsule 0 04/08/2021 03/24/2022 Discontinued End: 12-20-2024 take 1 tablet by mouth once daily cholecalciferol (VITAMIN D) 1,000 unit tab tablet Take 1,000 Units by mouth once daily. 12/20/2024 Discontinued (Course of therapy completed) Comment on above: Take 1 capsule by mo [facility] one time a week for 8 doses. cholecalciferol, vitamin D3, (VITAMIN D3 ORAL) (11 sources) End: 03-24-2022 cholecalciferol, vitamin D3, (VITAMIN D3 ORAL) Take by mouth. 0 03/24/2022 Discontinued cholecalciferol, vitamin D3, (VITAMIN D3 ORAL) Take by mouth. 0 Active Comment on above: Take by mouth. diclofenac potassium 50 mg oral tablet (5 sources) Nonsteroidal Anti-inflammatory Drug Start: 2 End: 2 take 1 tablet by mouth twice daily at mealtime diclofenac potassium (CATAFLAM) 50 mg tablet Take 1 tablet by mouth twice daily. Take with food. 0 03/24/2022 03/24/2022 Discontinued Start: 02-20-2022 End: 03-22-2022 take 1 tablet by mouth twice daily diclofenac, EC, (VOLTAREN) 50 mg EC tablet Indications: Patellofemoral syndrome of both knees Take 1 tablet by mouth twice daily. 60 tablet 0 02/20/2022 03/22/2022 Active Comment on above: Take 1 tablet by erasmo twice daily. Take 1 tablet by erasmo th twice daily. Take with food. drospirenone / Ethinyl Estradiol (7 sources) Progestin, Estrogen Start: 4 End: 5 take 1 tablet by mouth once daily Drospirenone-Ethinyl Estradiol (JOVITA, 28,) 3-0.03 mg per tablet Indications: PCOS (polycystic ovarian syndrome) Take 1 tablet by mouth once daily. 84 tablet 3 04/07/2024 08/04/2024 Discontinued Start: 04-07-2024 End: 03-09-2025 take 1 tablet by mouth once daily Drospirenone-Ethinyl Estradiol (JOVITA, 28,) 3-0.03 mg per tablet Indications: PCOS (polycystic ovarian syndrome) Take 1 tablet by mouth once daily. 84 tablet 3 04/07/2024 03/09/2025 Active 21 day ethinyl estradiol 0.175646 mg/hr / etonogestrel 0.005 mg/hr vaginal system (8 sources) Progestin, Estrogen Start: 06-02-2023 End: 01-20-2024 Etonogestrel-Ethinyl Estradiol (NUVARING) 0.12-0.015 mg/24 hr vaginal ring Indications: Secondary amenorrhea , Irregular menstrual cycle Use 1 Each vaginally as directed. 3 Each 1 06/02/2023 01/20/2024 Discontinued Comment on above: Use 1 Each vaginally as directed. medroxyPROGESTERone acetate 10 mg oral tablet (12 sources) Progestin Start: 06-02-2023 End: 04-07-2024 take 1 tablet by mouth once daily medroxyPROGESTERone (PROVERA) 10 mg tablet Take 1 tablet by mouth once daily. Take for 10 days of until menses starts. 10 tablet 01/20/2024 04/07/2024 Discontinued Comment on above: Take 1 tablet by erasmo th once daily. 24 hr metFORMIN hydrochloride 500 mg extended release oral tablet (18 sources) Biguanide Start: 05-19-2024 End: 01-27-2025 take 2 tablets by mouth twice daily at dinner metFORMIN ER (GLUCOPHAGE XR) 500 mg 24 hr tablet Indications: PCOS (polycystic ovarian syndrome) Take 2 tablets by mouth two times a day. Take daily with either breakfast or lunch and Dinner 120 tablet 5 07/31/2024 12/20/2024 Discontinued (Course of therapy completed) Start: 04-17-2024 End: 07-16-2024 take 2 tablets by mouth once daily at dinner metFORMIN ER (GLUCOPHAGE XR) 500 mg 24 hr tablet Indications: PCOS (polycystic ovarian syndrome) Take 2 tablets by mouth daily with dinner. 60 tablet 2 04/17/2024 07/16/2024 Active Problems Active Problems Problem Classification Problem Date Documented Da te Episodic/Chronic Anxiety disorders (20 sources) Mixed anxiety and depressive disorder; Translations: [Other specified anxiety disorders] Onset: 12-05-2020 12-05-2020 Chronic Diseases of white blood cells (4 sources) Leukocytosis; Translations: [Elevated white blood cell count, unspecified] 05-19-2022 Chronic Fluid and electrolyte disorders (1 source) Hypercapnia; Translations: [Acidosis] Episodic Hemorrhage during ; abruptio placenta; placenta previa (1 source) Other antepartum hemorrhage, first trimester; Translations: [Subchorionic hematoma in first trimester, single or unspecified fetus (HCC)] Onset: 10-25-2024 Episodic Immunizations and screening for infectious disease (1 source) Encounter for screening for human papillomavirus (HPV); Translations: [Screening for human papillomavirus (HPV)] Onset: 09-27-2024 Episodic Joint disorders and dislocations; trauma-related (1 source) Patellofemoral syndrome of bilateral knees; Translations: [Patellofemoral disorders, right knee] Chronic Menopausal disorders (2 sources) Menorrhagia; Translations: [Excessive bleeding in the premenopausal period] Onset: 05-11-2024 05-04-2024 Chronic Menstrual disorders (13 sources) Irregular periods; Translations: [Irregular menstruation, unspecified] Chronic Mood disorders (1 source) Unspecified mood [affective] disorder; Translations: [Unspecified mood (affective) disorder (HCC)] Onset: 08-17-2022 Chronic Mood disorders (1 source) Disturbance in mood; Translations: [Emotional lability] Episodic Nausea and vomiting (4 sources) Nausea; Translations: [Nausea] 05-19-2022 Episodic Nutritional deficiencies (1 source) Vitamin D deficiency, unspecified; Translations: [Vitamin D deficiency] Onset: 06-27-2021 Chronic Other bone disease and musculoskeletal deformities (1 source) Somatic dysfunction of lumbar region; Translations: [Segmental and somatic dysfunction of lumbar region] Episodic Other complications of (12 sources) Maternal obesity complicating , childbirth and the puerperium, antepartum; Translations: [Obesity complicating , first trimester] Onset: 09-27-2024 09-27-2024 Chronic Other complications of (1 source) Obesity complicating , unspecified trimester; Translations: [Obesity in (HCC)] Onset: 11-22-2024 Chronic Other complications of (14 sources) High risk ; Translations: [Supervision of high risk , unspecified, first trimester] Onset: 09-27-2024 09-27-2024 Episodic Other complications of (1 source) Supervision of high risk , unspecified, first trimester; Translations: [Encounter for supervision of high risk in first trimester, antepartum (HCC)] Onset: 10-25-2024 Episodic Other endocrine disorders (3 sources) Polycystic ovary syndrome; Translations: [Polycystic ovarian syndrome] 04-07-2024 Chronic Other endocrine disorders (1 source) Polycystic ovarian syndrome; Translations: [PCOS (polycystic ovarian syndrome)] Onset: 04-10-2024 Chronic Other female genital disorders (1 source) Abnormal uterine bleeding; Translations: [Abnormal uterine and vaginal bleeding, unspecified] 04-07-2024 Chronic Other nervous system disorders (2 sources) Other chronic pain; Translations: [Chronic midline low back pain without sciatica] Onset: 06-27-2021 Chronic Other nervous system disorders (20 sources) Sleep-wake schedule disorder, delayed phase type; Translations: [Circadian rhythm sleep disorder, delayed sleep phase type] Onset: 12-10-2022 Chronic Other nervous system disorders (1 source) Disruptions of 24 hour sleep-wake cycle; Translations: [Circadian rhythm sleep disorder, unspecified type] 12-10-2022 Chronic Other non-traumatic joint disorders (2 sources) Pain in right knee; Translations: [Pain in joint, lower leg] Onset: 02-20-2022 02-20-2022 Episodic Other non-traumatic joint disorders (2 sources) Pain in left knee; Translations: [Pain in both knees, unspecified chronicity] Onset: 06-27-2021 Episodic Other nutritional; endocrine; and metabolic disorders (1 source) Amino acid deficiency; 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, unspecified] Chronic Other nutritional; endocrine; and metabolic disorders (20 sources) Obese class I; Translations: [Obesity, unspecified] Onset: 12-18-2021 12-18-2021 Chronic Other nutritional; endocrine; and metabolic disorders (5 sources) Obesity; Translations: [Class 2 obesity with body mass index (BMI) of 39.0 to 39.9 in adult, unspecified obesity type, unspecified whether serious comorbidity present] 04-07-2024 Chronic Other nutritional; endocrine; and metabolic disorders (1 source) Insulin resistance; Translations: [Insulin resistance] 07-31-2024 Chronic Other nutritional; endocrine; and metabolic disorders (1 source) Body mass index (BMI) 37.0-37.9, adult; Translations: [Class 2 obesity with body mass index (BMI) of 37.0 to 37.9 in adult, unspecified obesity type, unspecified whether serious comorbidity present] Onset: 08-04-2024 Chronic Other nutritional; endocrine; and metabolic disorders (1 source) Body mass index (BMI) 39.0-39.9, adult; Translations: [Class 2 obesity with body mass index (BMI) of 39.0 to 39.9 in adult, unspecified obesity type, unspecified whether serious comorbidity present] Onset: 04-10-2024 Chronic Other and delivery including normal (4 sources) with uncertain dates; Translations: [Encounter for supervision of normal , unspecified, unspecified trimester] Onset: 09-27-2024 09-27-2024 Episodic Other screening for suspected conditions (not mental disorders or infectious disease) (11 sources) Patient encounter status; Translations: [Encounter for screening for diabetes mellitus] Onset: 09-27-2024 Episodic Other skin disorders (1 source) Acne; Translations: [Other acne] Episodic Other upper respiratory infections (3 sources) Sore throat symptom; Translations: [Acute pharyngitis, unspecified] 03-24-2023 Episodic Ovarian cyst (5 sources) Ruptured cyst of ovary; Translations: [Unspecified ovarian cyst, unspecified side] 05-19-2022 Episodic Polyhydramnios and other problems of amniotic cavity (11 sources) Subchorionic hematoma; Translations: [Other specified disorders of amniotic fluid and membranes, first trimester, not applicable or unspecified] Onset: 10-12-2024 10-12-2024 Episodic Residual codes; unclassified (20 sources) Hypersomnia; Translations: [Hypersomnia, unspecified] Onset: 05-15-2021 05-15-2021 Chronic Residual codes; unclassified (1 source) Daytime somnolence; Translations: [Other hypersomnia] 12-10-2022 Chronic Residual codes; unclassified (1 source) Other hypersomnia; Translations: [Excessive daytime sleepiness] Onset: 08-17-2022 Chronic Residual codes; unclassified (1 source) Insomnia; Translations: [Other insomnia] 10-25-2024 Chronic Residual codes; unclassified (1 source) Other insomnia; Translations: [Other insomnia] Onset: 10-25-2024 Chronic Residual codes; unclassified (3 sources) Gestation period, 7 weeks; Translations: [Less than 8 weeks gestation of ] 09-27-2024 Episodic Residual codes; unclassified (1 source) Gestation period, 11 weeks; Translations: [11 weeks gestation of ] 10-25-2024 Episodic Residual codes; unclassified (1 source) Gestation period, 12 weeks; Translations: [12 weeks gestation of ] 11-06-2024 Episodic Residual codes; unclassified (1 source) Gestation period, 19 weeks; Translations: [19 weeks gestation of ] 12-20-2024 Episodic Residual codes; unclassified (1 source) 19 weeks gestation of ; Translations: [19 weeks gestation of (HCC)] Onset: 12-20-2024 Episodic Residual codes; unclassified (1 source) 15 weeks gestation of ; Translations: [15 weeks gestation of (HCC)] Onset: 11-22-2024 Episodic Residual codes; unclassified (1 source) 12 weeks gestation of ; Translations: [12 weeks gestation of (HCC)] Onset: 11-06-2024 Episodic Residual codes; unclassified (1 source) 11 weeks gestation of ; Translations: [11 weeks gestation of (HCC)] Onset: 10-25-2024 Episodic Residual codes; unclassified (1 source) Less than 8 weeks gestation of ; Translations: [7 weeks gestation of (HCC)] Onset: 09-27-2024 Episodic Skin and subcutaneous tissue infections (3 sources) Abscess of skin and/or subcutaneous tissue; Translations: [Cutaneous abscess, unspecified] Onset: 04-01-2022 Episodic Substance-related disorders (4 sources) Tobacco dependence syndrome; Translations: [Nicotine dependence, unspecified, uncomplicated] Onset: 08-04-2024 08-04-2024 Chronic Syncope (3 sources) Near syncope; Translations: [Syncope and collapse] 01-13-2023 Episodic Unclassified (1 source) Chronic midline low back pain without sciatica; Translations: [Chronic midline low back pain without sciatica] Onset: 06-27-2021 Unclassified (10 sources) [facility] - [facility] Onset: 09-27-2024 09-27-2024 Unclassified (10 sources) Education - [place] Onset: 09-27-2024 09-27-2024 Unclassified (1 source) Class 2 obesity with body mass index (BMI) of 37.0 to 37.9 in adult, unspecified obesity type, unspecified whether serious comorbidity present; Translations: [Class 2 obesity with body mass index (BMI) of 37.0 to 37.9 in adult, unspecified obesity type, unspecified whether serious comorbidity present] Onset: 08-04-2024 Unclassified (1 source) Class 2 obesity with body mass index (BMI) of 39.0 to 39.9 in adult, unspecified obesity type, unspecified whether serious comorbidity present; Translations: [Class 2 obesity with body mass index (BMI) of 39.0 to 39.9 in adult, unspecified obesity type, unspecified whether serious comorbidity present] Onset: 04-10-2024 Past or Other Problems Problem Classification Problem Date Documented Da te Episodic/Chronic Abdominal pain (14 sources) Abdominal pain; Translations: [Unspecified abdominal pain] Onset: 03-01-2024 05-19-2022 Episodic Administrative/social admission (1 source) Encounter for pre-employment examination; Translations: [Encounter for pre-employment examination] Onset: 10-14-2023 Episodic Contraceptive and procreative management (2 sources) Social and personal history finding; Translations: [Encounter for procreative management, unspecified] Onset: 08-04-2024 Episodic Malaise and fatigue (2 sources) Asthenia; Translations: [Weakness] Onset: 06-27-2021 Episodic Other acquired deformities (20 sources) Leg length inequality; Translations: [Unequal limb length (acquired), unspecified site] Onset: 12-07-2022 12-03-2022 Episodic Other nutritional; endocrine; and metabolic disorders (20 sources) Body mass index 25-29 - overweight; Translations: [Overweight] Onset: 07-16-2021 Episodic Residual codes; unclassified (20 sources) Disturbance in sleep behavior; Translations: [Sleep disorder, unspecified] Onset: 12-05-2020 12-05-2020 Episodic Spondylosis; intervertebral disc disorders; other back problems (20 sources) Chronic low back pain; Translations: [Chronic bilateral low back pain without sciatica] Onset: 07-16-2021 Episodic Sprains and strains (20 sources) Strain of knee; Translations: [Strain of unspecified muscle(s) and tendon(s) at lower leg level, right leg, initial encounter] Onset: 12-07-2022 02-06-2022 Episodic Results Test Name Value Interpretation Reference Range Facil ity Examination level ultrasound on 11-06-2024 Indication First trimester anatomic survey, Maternal obesity, BMI >30 Impression remote read The patient is referred for a first trimester anatomy scan including nuchal translucency measurement as clinically indicated. - Single, live, intrauterine . - [place] rump length measurement is consistent with the established gestational age. - A qualitative screen of the nuchal translucency and other anatomic structures was unremarkable on incomplete first trimester anatomic assessment. - Not all structural malformations can be detected by ultrasound examination. Recommendations - A standard anatomic survey at 16 weeks can be offered and a detailed exam at 20 weeks is recommended for increased risk. Maternal Assessment Height 155 cm Height (ft) 5 ft Height (in) 1 in Physical Exam Initial weight (lb) 190 lb Initial BMI 35.90 kg/m Method Transabdominal ultrasound examination. View: Suboptimal view: limited by maternal body habitus Weber . Number of fetuses: 1 Dating GA by prior assessment 12 w + 6 d YADIRA by prior assessment: 05/15/2025 Ultrasound examination on: 11/06/2024 GA by U/S based upon: CRL GA by U/S 12 w + 6 d YADIRA by U/S: 05/15/2025 Assigned: based on ultrasound (CRL), selected on 09/27/2024 Assigned GA 12 w + 6 d Assigned YADIRA: 05/15/2025 General Evaluation Cardiac activity present Placenta: anterior Cord vessels: 3 vessel cord, normal insertion Amniotic fluid: normal amount Biometry Standard FHR 160 bpm CRL 66.0 mm 12w 6d 46% Hadlock First Trimester Anatomy Calvarium: normal Falx cerebri: normal Choroid plexus: normal Profile: normal Nasal bone: normal Retronasal triangle: normal Maxilla: normal Mandible: normal Nuchal translucency: Unremarkable Situs: normal Cardiac position: normal Cardiac axis: normal 4-chamber view: suboptimal 4-chamber view with color: suboptimal 4-[id number] view: suboptimal Abdominal cord insertion: normal Stomach: normal Kidneys: normal Bladder: normal Color doppler of perivesical umbilical arteries: normal Vertebral alignment: normal Arms: normal Hands: normal Legs: normal Feet: normal Maternal Structures Uterus / Cervix Uterus: Visualized Ovaries / Tubes / Adnexa Rt ovary: Normal Rt ovary D1 29 mm Rt ovary D2 26 mm Rt ovary D3 18 mm Rt ovary Vol 7.2 cm Lt ovary: Suboptimal Performed By: Selina Montes RDMS Read By: Aureila Shaikh M.D. MATERNAL MEDICINE [facility] Radiology Study observation (narrative) [facility] [id number] PLUSon 10-25-2024 Cell-free DNA./Cell-free DNA.total Dosage of chromosome-specific cfDNA (cfDNA) [Molar fraction] 13% Normal [facility] Comment on above: Order Comment: Speci men Type: BLOOD SPECIMENOrdering Facility: [facility] Address: [address] [place] [address] Performed By: #### M AT21 ####[employer] LABCLIA [id number] [place] [address] Chr 13+18+21+X+Y aneuploidy Dosage of chromosome-specific cfDNA Ql (cfDNA) Negative Normal [facility] Comment on above: Order Comment: Speci men Type: BLOOD SPECIMENOrdering Facility: [facility] Address: [address] [place] [address] Performed By: #### M AT21 ####[employer] LABCLIA [id number] [place] [address] Chr 21 trisomy Dosage of chromosome-specific cfDNA Ql (cfDNA) Negative Normal [facility] Comment on above: Order Comment: Speci men Type: BLOOD SPECIMENOrdering Facility: [facility] Address: [address] [place] [address] Performed By: #### M AT21 ####[employer] LABCLIA [id number] [place] [address] Chr X and Y aneuploidy risk Sequencing Ql (cfDNA) [Interp] Not detected Normal [facility] Comment on above: Order Comment: Speci men Type: BLOOD SPECIMENOrdering Facility: [facility] Address: [address] [place] [address] Result Comment: Not Detected Not Detected Performed By: #### M AT21 ####[employer] LABCLIA [id number] [place] [address] Citation Dieudonne (Reference lab test) Comment Normal [facility] Comment on above: Order Comment: Speci men Type: BLOOD SPECIMENOrdering Facility: [facility] Address: [address] [place] [address] Result Comment: 1. P darren NIEVES, et al. Jessica Med. 2012;14(3):296-305. 2. Abhinav DOOLEY et al. Prenat Diag. 2013;33(6):591-597. 3. Ralph C, et al. Clin Chem. 2015 Apr;61(4):608-616. 4. Shwetha NIEVES et al. Jessica Med. 2011;13(11):913-920. 5. ACOG/SMFM Practice Bulletin No. 226, Jan 2020. Performed By: #### M AT21 ####[employer] LABCLIA [id number] [place] [address] Gestational age Estimated from conception date Weber Normal [facility] Comment on above: Order Comment: Jese eller Type: BLOOD SPECIMENOrdering Facility: [facility] Address: [address] [place] [address] Performed By: #### M AT21 ####[facility] LABCLIA [id number] [place] [address] GESTATIONALAGE AGE > OR = 9W Yes Normal [facility] Comment on above: Order Comment: Jese eller Type: BLOOD SPECIMENOrdering Facility: [facility] Address: [address] [place] [address] Performed By: #### M AT21 ####[employer] [facility] LABCLIA [id number] [place] [address] Laboratory comment Dieudonne (Report) Comment Normal [facility] Comment on above: Order Comment: Jese eller Type: BLOOD SPECIMENOrdering Facility: [facility] Address: [address] [place] [address] Result Comment: The MaterniT(R) 21 PLUS laboratory-developed test (LDT) analyzes circulating cell-free DNA from a maternal blood sample. This test is used for screening purposes and not diagnostic. Clinical correlation is recommended. Validation data on twin pregnancies is limited and the ability of this test to detect aneuploidy in higher multiple gestations has not yet been validated. Performed By: #### M AT21 ####[employer] LABCLIA [id number] [place] [address] director asset name Nom (Provider) Comment Normal [facility] Comment on above: Order Comment: Speci men Type: BLOOD SPECIMENOrdering Facility: [facility] Address: [address] [place] [address] Result Comment: This specimen showed an expected representation of chromosome 21, 18 and 13 material. Clinical correlation is suggested. Comment Adin Lucas MD, PhD, Director, [facility] Performed By: #### M AT21 ####[employer] [facility] LABCLIA [id number] [place] [id number] LIMITATIONS OF THE TEST Comment Normal [facility] Comment on above: Order Comment: Speci men Type: BLOOD SPECIMENOrdering Facility: [facility] Address: [address] [place] [address] Result Comment: Angel blackwood the results of these tests are highly reliable, discordant results, including inaccurate sex prediction, may occur due to placental, maternal, or mosaicism or neoplasm; vanishing twin; prior maternal organ transplant; or other causes. These tests are screening tests and not diagnostic; they do not replace the accuracy and precision of diagnosis with CVS or amniocentesis. A patient with a positive test result should be referred for genetic counseling and offered invasive diagnosis for confirmation of test results.[5] The results of this testing, including the benefits and limitations, should be discussed with a qualified healthcare provider. management decisions, including termination of the , should not be based on the results of these tests alone. The healthcare provider is responsible for the use of this information in the management of their patient. Sex chromosomal aneuploidies are not reportable for known multiple gestations. A negative result does not ensure an unaffected nor does it exclude the possibility of other chromosomal abnormalities or defects which are not a part of these tests. An uninformative result may be reported, the causes of which may include, but are not limited to, insufficient sequencing coverage, noise or artifacts in the region, amplification or sequencing bias, or insufficient fraction. These tests are not intended to identify pregnancies at risk for neural tube defects or ventral wall defects. Testing for whole chromosome abnormalities (including sex chromosomes) and for subchromosomal abnormalities could lead to the potential discovery of both and maternal genomic abnormalities that could have major, minor, or no, clinical significance. Evaluating the significance of a positive or a non-reportable result may involve both invasive testing and additional studies on the mother. Such investigations may lead to a diagnosis of maternal chromosomal or subchromosomal abnormalities, which on occasion may be associated with benign or malignant maternal neoplasms. These tests may not accurately identify triploidy, balanced rearrangements, or the precise location of subchromosomal duplications or deletions; these may be detected by diagnosis with CVS or amniocentesis. The ability to report results may be impacted by maternal BMI, maternal weight, maternal systemic lupus erythematosus (SLE) and/or by certain pharmaceutical agents such as low molecular weight heparin (for example: Lovenox(R), Xaparin(R), Clexane(R) and Fragmin(R)). Performed By: #### M AT21 ####[employer] [id number] [place] [address] Monosomy X risk Dosage of chromosome-specific cfDNA Ql (Plasma cell-free+WBC DNA) [Interp] Not detected Normal [facility] Comment on above: Order Comment: Speci daphnie Type: BLOOD SPECIMENOrdering Facility: [facility] Address: [address] [place] [address] Performed By: #### M AT21 ####[employer] LABCLIA [id number] [place] [address] NEGATIVE PREDICTIVE VALUE Note Normal [facility] Comment on above: Order Comment: Speci men Type: BLOOD SPECIMENOrdering Facility: [facility] Address: [address] [place] [address] Result Comment: The Negative Predictive Value (NPV) for trisomy 21, 18, and 13 is greater than 99%. The NPV for SCA and ESS cannot be calculated as SCA and ESS are only reported when an abnormality is detected. Performed By: #### M AT21 ####[employer] LABCLIA [id number] [place] [address] PERFORMANCE CHARACTERISTICS Note Normal [facility] Comment on above: Order Comment: Jese eller Type: BLOOD SPECIMENOrdering Facility: [facility] Address: [address], [place] [address] Result Comment: ! Sex ! Accuracy: 99.4% ! ! ! ! Region (associated syndrome) ! Est. Sens# ! Est. Spec ! ! ! ! Trisomy 21 (Down Syndrome) ! 99.1% ! 99.9% ! ! ! ! Trisomy 18 (Alegria Syndrome) ! >99.9% ! 99.6% ! ! ! ! Trisomy 13 (Patau Syndrome) ! 91.7% ! 99.7% ! ! ! ! Sex Chromosome Aneuploidies## ! 96.2% ! 99.7% ! ! ! * As reported in ISCA database nstd37 [https://www.ncbi.nlm.nih.gov/dbvar/studies/nstd37/ ] # Estimated Sensitivity. Sensitivity estimated across the observed size distribution of each syndrome [per ISCA database nstd37] and across the range of fractions observed in routine clinical NIPT. Actual sensitivity can also be influenced by other factors such as the size of the event, total sequence counts, amplification bias, or sequence bias. ## Weber gestation only. Performed By: #### M AT21 ####[employer] LABCLIA [id number] [place] [address] POSITIVE PREDICTIVE VALUE N/A Normal [facility] Comment on above: Order Comment: Jese eller Type: BLOOD SPECIMENOrdering Facility: [facility] Address: [address] [place] [address] Performed By: #### M AT21 ####[employer] LABCLIA [id number] [place] [address] Reference Lab Test Method Comment Normal [facility] Comment on above: Order Comment: Jese eller Type: BLOOD SPECIMENOrdering Facility: [facility] Address: [address] [place] [address] Result Comment: Circ ulating cell-free DNA was purified from the plasma component of maternal blood. The extracted DNA was then converted into a genomic DNA library for aneuploidy analysis of chromosomes 21, 18, and 13 via next generation sequencing.[1] Optional findings based on the test order include sex chromosome aneuploidy (SCA)[2], and enhanced sequencing series (ESS)[3], which will only be reported on as an additional finding when an abnormality is detected. SCA testing includes information on X and Y representation, while ESS testing includes deletions in selected regions (22q, 15q, 11q, 8q, 5p, 4p, 1p) and trisomy of chromosomes 16 and 22. Performed By: #### M AT21 ####[employer] LABCLIA [id number] [place] [address] Service comment (Unsp spec) [Interp] Comment Normal [facility] Comment on above: Order Comment: Speci men Type: BLOOD SPECIMENOrdering Facility: [facility] Address: [address] [place] [address] Result Comment: [employer] is a subsidiary of [employer], using the brand [employer]. This test was developed and its performance characteristics determined by [employer]. It has not been cleared or approved by the Food and Drug Administration. This laboratory is certified under the Clinical Laboratory Improvement Amendments (CLIA) as qualified to perform high complexity clinical laboratory testing and accredited by the [employer] ([employer]). If there is future clinical need for adding MaterniT GENOME testing, this specimen will be available until term. [facility] samples will not be retained beyond 60 days. [facility] patients will have to send a new sample for re-sequencing ([facility] Test Code: 707264). Performed By: #### M AT21 ####[employer] LABCLIA [id number] [place] [address] Sex Dosage of chromosome-specific cfDNA Nom (cfDNA) Comment Normal [facility] Comment on above: Order Comment: Speci men Type: BLOOD SPECIMENOrdering Facility: [facility] Address: [address] [place] [address] Result Comment: Cons istent with Male Performed By: #### M AT21 ####[employer] LABCLIA [id number] [place] [address] Test performance information Dieudonne (Unsp spec) Comment Normal [facility] Comment on above: Order Comment: Speci men Type: BLOOD SPECIMENOrdering Facility: [facility] Address: [address] [place] [address] Result Comment: The performance characteristics of the MaterniT(R) 21 PLUS laboratory-developed test (LDT) have been determined in a clinical validation study with women at increased risk for chromosomal aneuploidy.[1-4] Performed By: #### M AT21 ####[employer] LABCLIA [id number] [place] [address] Trisomy 13 risk Dosage of chromosome-specific cfDNA Ql (cfDNA) [Interp] Negative Normal [facility] Comment on above: Order Comment: Speci men Type: BLOOD SPECIMENOrdering Facility: [facility] Address: [address] [place] [address] Performed By: #### M AT21 ####[facility] LABCLIA [id number] [place] [address] Trisomy 18 risk Dosage of chromosome-specific cfDNA Ql (Plasma cell-free+WBC DNA) [Interp] Negative Normal [facility] Comment on above: Order Comment: Speci men Type: BLOOD SPECIMENOrdering Facility: [facility] Address: [address] [place] [address] Performed By: #### M AT21 ####[facility] LABCLIA [id number] [place] [address] Examination level ultrasound on 10-12-2024 Indication dating Impression - A normally located single intrauterine gestational sac with a yolk sac and an embryo is present. - [place] rump length measurement is consistent with the established gestational age of 9w 2d. - Embryonic cardiac motion is within normal limits. There is a small subchorionic hematoma noted measuring 6 mm x 4 mm x 10 mm. Recommendations Follow up for 1st Trimester Anatomy with Nuchal Translucency as clinically indicated if desired. Method Transabdominal, transvaginal, 3D ultrasound examination, Color Doppler examination. View: Adequate visualization Weber . Number of embryos: 1 Dating GA by prior assessment 9 w + 2 d YADIRA by prior assessment: 05/15/2025 Ultrasound examination on: 10/12/2024 GA by U/S based upon: CRL GA by U/S 9 w + 1 d YDAIRA by U/S: 05/16/2025 Assigned: based on ultrasound (CRL), selected on 09/27/2024 Assigned GA 9 w + 2 d Assigned YADIRA: 05/15/2025 Biometry Standard FHR 178 bpm CRL 24.1 mm 9w 1d 33% Hadlock Extended YS 3.8 mm 3% [place] Assessment Gestational sac: visualized Location: intrauterine Yolk sac: visualized YS 3.8 mm 3% [place] Embryo: visualized CRL 24.1 mm 9w 1d 33% Hadlock Cardiac activity: present FHR 178 bpm Placenta: anterior Maternal Structures Uterus / Cervix Uterus: Visualized Uterus position: retroverted Description of uterine malformations: none Myometrium: normal Uterus length 85 mm Uterus width 64 mm Uterus height 57 mm Uterus Vol 163.1 cm Cervix: Visualized Other: small subchorionic hematoma noted measuring 6 mm x 4 mm x 10 mm Ovaries / Tubes / Adnexa Rt ovary: Visualized Rt ovary morphology: premenopausal normal follicular Rt ovary D1 20 mm Rt ovary D2 22 mm Rt ovary D3 17 mm Rt ovary Vol 4.0 cm Lt ovary: Visualized Lt ovary D1 28 mm Lt ovary D2 23 mm Lt ovary D3 29 mm Lt ovary Vol 9.7 cm Lt ovarian corpus luteum: cystic with fine diffuse internal echoes Lt ovarian corpus luteum D1 19.8 mm Lt ovarian corpus luteum D2 16.0 mm Lt ovarian corpus luteum D3 20.2 mm [place] / Bladder / Kidneys / Other [place]: Visualized Free fluid: no free fluid visualized Performed By: Altagracia Kruger RDMS Read By: Maxi Mayes M.D. MATERNAL MEDICINE [facility] Radiology Study observation (narrative) Tamie jang Banner 10-10-2024 CNPN Telephone (PSYRMN) ESHA FRANCOIS ([id number]) 4 F Date Time Provider Department 10/10/24 BERTA ANDERSON PSYRMN During your visit today, we recorded the following information about you: Berta Anderson LISW 10/10/2024 10:18 AM Signed Third outreach attempt. Phone call to patient regarding [facility] referral. Patient did not answer, left message. MCM sent with WB contact information and additional resources. [facility] SW can be reached at: [place]: [phone] [place]:[phone] Allergies As of Date: 10/10/2024 (No Known Allergies) Date Reviewed: 09/27/2024 Reviewed by: Eduardo Garcia MA - Fully Assessed Reason for Visit: [employer] - Other [3602] Cmt: [facility] referral follow up Prescriptions as of 10/10/2024 - aspirin, enteric coated (ECOTRIN LOW STRENGTH) 81 mg EC tablet Take 1 tablet by mouth once daily. - ascorbic acid (VITAMIN C ORAL) Take by mouth. - cholecalciferol (VITAMIN D) 1,000 unit tab tablet Take 1,000 Units by mouth once daily. - lamoTRIgine (LAMICTAL) 200 mg tablet take 1 tablet by mouth once daily - venlafaxine ER (EFFEXOR XR) 150 mg 24 hr capsule Take 1 capsule by mouth once daily. - metFORMIN ER (GLUCOPHAGE XR) 500 mg 24 hr tablet Take 2 tablets by mouth two times a day. Take daily with either breakfast or lunch and Dinner - Mefenamic Acid 250 mg cap Take 1 capsule by mouth every 6 hours as needed. Problem List As Of Date 10/10/2024 Noted Resolved Anxiety with depression [F41.8] 12/05/2020 Sleep disturbance [G47.9] 12/05/2020 SOTO (generalized anxiety disorder) [F41.1] 04/07/2021 Hypersomnolence [G47.10] 05/15/2021 Overweight (BMI 25.0-29.9) [E66.3] 07/16/2021 Chronic bilateral low back pain without sciatic*07/16/2021 Obesity, Class I, BMI 30-34.9 [E66.811] 12/18/2021 Strain of lumbar region [S39.012A] 12/07/2022 Leg length inequality [M21.70] 12/07/2022 Circadian rhythm sleep disorder, delayed sleep *12/10/2022 Encounter for supervision of high risk pregnanc*09/27/2024 PTSD (post-traumatic stress disorder) [F43.10] 09/27/2024 Anxiety [F41.9] 09/27/2024 Severe obesity due to excess calories affecting*09/27/2024 Encounter Status:Closed by BERTA ANDERSON on 10/10/24 [facility] 10-04-2024 [facility] Telephone (PSYRMN) PRISCILAESHA Tasha ([id number]) 4 F Date Time Provider Department 10/04/24 ANALIA ATWOOD PSYRMN During your visit today, we recorded the following information about you: Analia Atwood LISW 10/04/2024 9:50 AM Signed Phone call to patient regarding [facility] referral. Patient did not answer, left message. [facility] SW can be reached at: [place]: [phone] [place]:[phone] Allergies As of Date: 10/04/2024 (No Known Allergies) Date Reviewed: 09/27/2024 Reviewed by: Eduardo Garcia MA - Fully Assessed Reason for Visit: WB Consult Follow Up [Other] Prescriptions as of 10/04/2024 - aspirin, enteric coated (ECOTRIN LOW STRENGTH) 81 mg EC tablet Take 1 tablet by mouth once daily. - ascorbic acid (VITAMIN C ORAL) Take by mouth. - cholecalciferol (VITAMIN D) 1,000 unit tab tablet Take 1,000 Units by mouth once daily. - lamoTRIgine (LAMICTAL) 200 mg tablet take 1 tablet by mouth once daily - venlafaxine ER (EFFEXOR XR) 150 mg 24 hr capsule Take 1 capsule by mouth once daily. - metFORMIN ER (GLUCOPHAGE XR) 500 mg 24 hr tablet Take 2 tablets by mouth two times a day. Take daily with either breakfast or lunch and Dinner - Mefenamic Acid 250 mg cap Take 1 capsule by mouth every 6 hours as needed. Problem List As Of Date 10/04/2024 Noted Resolved Anxiety with depression [F41.8] 12/05/2020 Sleep disturbance [G47.9] 12/05/2020 SOTO (generalized anxiety disorder) [F41.1] 04/07/2021 Hypersomnolence [G47.10] 05/15/2021 Overweight (BMI 25.0-29.9) [E66.3] 07/16/2021 Chronic bilateral low back pain without sciatic*07/16/2021 Obesity, Class I, BMI 30-34.9 [E66.811] 12/18/2021 Strain of lumbar region [S39.012A] 12/07/2022 Leg length inequality [M21.70] 12/07/2022 Circadian rhythm sleep disorder, delayed sleep *12/10/2022 Encounter for supervision of high risk pregnanc*09/27/2024 PTSD (post-traumatic stress disorder) [F43.10] 09/27/2024 Anxiety [F41.9] 09/27/2024 Severe obesity due to excess calories affecting*09/27/2024 Encounter Status:Closed by ANALIA ATWOOD on 10/04/24 Normal [facility] CBC W Auto Differential pane l (Bld)on 09-28-2024 Basophils (Bld) [#/Vol] 0.04 10*3/uL Normal <0.11 [facility] Comment on above: Order Comment: Speci men Type: BLOOD SPECIMEN Ordering Facility: [facility] Address: [address] [place] [address] Performed By: #### 5 5454-3 #### [facility] CLIA [id number] [address] [place] [address] [place] Basophils/100 WBC (Bld) 0.3 % Normal C [facility] Comment on above: Order Comment: Speci men Type: BLOOD SPECIMEN Ordering Facility: [facility] Address: [address] [place] [address] Performed By: #### 5 5454-3 #### [facility] CLIA [id number] [address] [place] [address] [place] Differential cell count method Nom (Bld) Auto Normal [facility] Comment on above: Order Comment: Speci men Type: BLOOD SPECIMEN Ordering Facility: [facility] Address: [address] [place] [address] Performed By: #### 5 5454-3 #### [facility] CLIA [id number] [address] [place] [address] [place] Eosinophils (Bld) [#/Vol] 0.09 10*3/uL Normal <0.46 [facility] Comment on above: Order Comment: Speci men Type: BLOOD SPECIMEN Ordering Facility: [facility] Address: [address] [place] [address] Performed By: #### 5 5454-3 #### [facility] CLIA [id number] [address] [place] [address] [place] Eosinophils/100 WBC (Bld) 0.7 % Normal [facility] Comment on above: Order Comment: Speci men Type: BLOOD SPECIMEN Ordering Facility: [facility] Address: [address] [place] [address] Performed By: #### 5 5454-3 #### [facility] CLIA [id number] [address] [place] [address] [place] Erythrocyte distribution width (RBC) [Ratio] 13.8 % Normal 11.5-15.0 [facility] Comment on above: Order Comment: Speci men Type: BLOOD SPECIMEN Ordering Facility: [facility] Address: [address] [place] [address] Performed By: #### 5 5454-3 #### [facility] LAB CLIA [id number] [address] [place] [address] [place] Hematocrit (Bld) [Volume fraction] 40.4 % Normal 36.0-46.0 [facility] Comment on above: Order Comment: Speci men Type: BLOOD SPECIMEN Ordering Facility: [facility] Address: [address] [place] [address] Performed By: #### 5 5454-3 #### [facility] CLIA [id number] [address] [place] [address] [place] Hemoglobin (Bld) [Mass/Vol] 13.5 g/dL Normal 11.5-15.5 [facility] Comment on above: Order Comment: Speci men Type: BLOOD SPECIMEN Ordering Facility: [facility] Address: [address] [place] [address] Performed By: #### 5 5454-3 #### [facility] CLIA [id number] [address] [place] [address] [place] Immature granulocytes (Bld) [#/Vol] 0.04 10*3/uL Normal <0.10 [facility] Comment on above: Order Comment: Speci men Type: BLOOD SPECIMEN Ordering Facility: [facility] Address: [address] [place] [address] Performed By: #### 5 5454-3 #### [facility] CLIA [id number] [address] [place] [address] [place] Immature granulocytes/100 WBC (Bld) 0.3 % Normal [facility] Comment on above: Order Comment: Speci men Type: BLOOD SPECIMEN Ordering Facility: [facility] Address: [address] [place] [address] Performed By: #### 5 5454-3 #### [facility] CLIA [id number] [address] [place] [address] [place] Lymphocytes (Bld) [#/Vol] 2.12 10*3/uL Normal 1.00-4.00 [facility] Comment on above: Order Comment: Speci men Type: BLOOD SPECIMEN Ordering Facility: [facility] Address: [address] [place] [address] Performed By: #### 5 5454-3 #### [facility] CLIA [id number] [address] [place] [address] [place] Lymphocytes/100 WBC (Bld) 15.9 % Normal [facility] Comment on above: Order Comment: Speci men Type: BLOOD SPECIMEN Ordering Facility: [facility] Address: [address] [place] [address] Performed By: #### 5 5454-3 #### [facility] CLIA [id number] [address] [place] [address] [place] MCH (RBC) [Entitic mass] 28.0 pg Normal 26.0-34.0 [facility] Comment on above: Order Comment: Speci men Type: BLOOD SPECIMEN Ordering Facility: [facility] Address: [address] [place] [address] Performed By: #### 5 5454-3 #### [facility] CLIA [id number] [address] [place] [address] [place] MCHC (RBC) [Mass/Vol] 33.4 g/dL Normal 30.5-36.0 [facility] Comment on above: Order Comment: Speci men Type: BLOOD SPECIMEN Ordering Facility: [facility] Address: [address] [place] [address] Performed By: #### 5 5454-3 #### [facility] CLIA [id number] [address] [place] [address] [place] MCV (RBC) [Entitic vol] 83.8 fL Normal 80.0-100.0 C [facility] Comment on above: Order Comment: Speci men Type: BLOOD SPECIMEN Ordering Facility: [facility] Address: [address] [place] [address] Performed By: #### 5 5454-3 #### [facility] CLIA [id number] [address] [place] [address] [place] Monocytes (Bld) [#/Vol] 1.04 10*3/uL High <0.87 [facility] Comment on above: Order Comment: Speci men Type: BLOOD SPECIMEN Ordering Facility: [facility] Address: [address] [place] [address] Performed By: #### 5 5454-3 #### [facility] CLIA [id number] [address] [place] [address] [place] Monocytes/100 WBC (Bld) 7.8 % Normal [facility] Comment on above: Order Comment: Speci men Type: BLOOD SPECIMEN Ordering Facility: [facility] Address: [address] [place] [address] Performed By: #### 5 5454-3 #### [facility] CLIA [id number] [address] [place] [address] [place] Neutrophils (Bld) [#/Vol] 9.99 10*3/uL High 1.45-7.50 [facility] Comment on above: Order Comment: Speci men Type: BLOOD SPECIMEN Ordering Facility: [facility] Address: [address] [place] [address] Performed By: #### 5 5454-3 #### [facility] CLIA [id number] [address] [place] [address] [place] Neutrophils/100 WBC (Bld) 75.0 % Normal [facility] Comment on above: Order Comment: Speci men Type: BLOOD SPECIMEN Ordering Facility: [facility] Address: [address] [place] [address] Performed By: #### 5 5454-3 #### [facility] CLIA [id number] [address] [place] [address] [place] Nucleated RBC (Bld) [#/Vol] 10*3/uL Normal <0.01 [facility] Comment on above: Order Comment: Speci men Type: BLOOD SPECIMEN Ordering Facility: [facility] Address: [address] [place] [address] Performed By: #### 5 5454-3 #### [facility] CLIA [id number] [address] [place] [address] [place] Nucleated RBC/100 WBC (Bld) [Ratio] 0.0 /100 WBC Normal [facility] Comment on above: Order Comment: Speci men Type: BLOOD SPECIMEN Ordering Facility: [facility] Address: [address] [place] [address] Performed By: #### 5 5454-3 #### [facility] CLIA [id number] [address] [place] [address] [place] Platelet mean volume (Bld) [Entitic vol] 9.5 fL Normal 9.0-12.7 [facility] Comment on above: Order Comment: Speci men Type: BLOOD SPECIMEN Ordering Facility: [facility] Address: [address] [place] [address] Performed By: #### 5 5454-3 #### [facility] CLIA [id number] [address] [place] [address] [place] Platelets (Bld) [#/Vol] 352 10*3/uL Normal 150-400 [facility] Comment on above: Order Comment: Speci men Type: BLOOD SPECIMEN Ordering Facility: [facility] Address: [address] [place] [address] Performed By: #### 5 5454-3 #### [facility] CLIA [id number] [address] [place] [address] [place] RBC (Bld) [#/Vol] 4.82 10*6/uL Normal 3.90-5.20 [facility] Comment on above: Order Comment: Speci men Type: BLOOD SPECIMEN Ordering Facility: [facility] Address: [address] [place] [address] Performed By: #### 5 5454-3 #### [facility] CLIA [id number] [address] [place] [address] [place] WBC (Bld) [#/Vol] 13.32 10*3/uL High 3.70-11.[address] [facility] Comment on above: Order Comment: Speci men Type: BLOOD SPECIMEN Ordering Facility: [facility] Address: [address] [place] [address] Performed By: #### 5 5454-3 #### [facility] CLIA [id number] [facility]0 [facility] [address] [facility] Beckie 09-28-2024 CNPN Telephone (OGFVWE) ESHA FRANCOIS ([id number]) 4 F Date Time Provider Department 09/28/24 NURSE HEALTH WORKER FRVW GLENN OGFVWE During your visit today, we recorded the following information about you: Michael Mendenhall, RN 09/28/2024 2:39 PM Signed 1st risk assessment form submitted 09/28/24 Michael Mendenhall RN Allergies As of Date: 09/28/2024 (No Known Allergies) Date Reviewed: 09/27/2024 Reviewed by: Eduardo Garcia MA - Fully Assessed Reason for Visit: PRAF [4193] Prescriptions as of 09/28/2024 - aspirin, enteric coated (ECOTRIN LOW STRENGTH) 81 mg EC tablet Take 1 tablet by mouth once daily. - ascorbic acid (VITAMIN C ORAL) Take by mouth. - cholecalciferol (VITAMIN D) 1,000 unit tab tablet Take 1,000 Units by mouth once daily. - lamoTRIgine (LAMICTAL) 200 mg tablet take 1 tablet by mouth once daily - venlafaxine ER (EFFEXOR XR) 150 mg 24 hr capsule Take 1 capsule by mouth once daily. - metFORMIN ER (GLUCOPHAGE XR) 500 mg 24 hr tablet Take 2 tablets by mouth two times a day. Take daily with either breakfast or lunch and Dinner - Mefenamic Acid 250 mg cap Take 1 capsule by mouth every 6 hours as needed. Problem List As Of Date 09/28/2024 Noted Resolved Anxiety with depression [F41.8] 12/05/2020 Sleep disturbance [G47.9] 12/05/2020 SOTO (generalized anxiety disorder) [F41.1] 04/07/2021 Hypersomnolence [G47.10] 05/15/2021 Overweight (BMI 25.0-29.9) [E66.3] 07/16/2021 Chronic bilateral low back pain without sciatic*07/16/2021 Obesity, Class I, BMI 30-34.9 [E66.811] 12/18/2021 Strain of lumbar region [S39.012A] 12/07/2022 Leg length inequality [M21.70] 12/07/2022 Circadian rhythm sleep disorder, delayed sleep *12/10/2022 Encounter for supervision of high risk pregnanc*09/27/2024 PTSD (post-traumatic stress disorder) [F43.10] 09/27/2024 Anxiety [F41.9] 09/27/2024 Severe obesity due to excess calories affecting*09/27/2024 Encounter Status:Closed by MICHAEL MENDENHALL on 09/28/24 Normal [facility] HBV surface Ag Ser Qlon 09-17 HBV surface Ag Ql (S) Negative Normal Negative [facility] Comment on above: Order Comment: Jese eller Type: BLOOD SPECIMEN Ordering Facility: [facility] Address: [address] [place] [address] Performed By: #### 5 5454-3 #### [facility] CLIA [id number] [address] [place] [address] STATES OF [facility] HCV Ab Ser Qlon 09-28-2024 HCV Ab Ql (S) Negative Normal Negative [facility] Comment on above: Order Comment: Jese eller Type: BLOOD SPECIMEN Ordering Facility: [facility] Address: [address] [place] [address] Result Comment: The result suggests no evidence of infection with Hepatitis C virus. Should recent infection be suspected, repeat testing may be considered 4-6 weeks after this draw. Performed By: #### 5 5454-3 #### [facility] CLIA [id number] [address] [place] [address] [place] HIV 1+2 Ab IA Qlon HIV 1 and 2 Ab IA.rapid Nom (S/P/Bld) Normal [facility] Comment on above: Order Comment: Speci men Type: BLOOD SPECIMEN Ordering Facility: [facility] Address: [address] [place] [address] Result Comment: Test not indicated. Performed By: #### 5 5454-3 #### [facility] CLIA [id number] [address] [place] [address] [place] HIV 1+2 Ab+HIV1 p24 Ag IA Ql Non-Reactive Normal Nonreactive [facility] Comment on above: Order Comment: Speci men Type: BLOOD SPECIMEN Ordering Facility: [facility] Address: [address] [place] [address] Performed By: #### 5 5454-3 #### [facility] CLIA [id number] [address] [place] [address] [place] HIV immunoassay testing algorithm interpretation (S/P/Bld) [Interp] Normal [facility] Comment on above: Order Comment: Speci men Type: BLOOD SPECIMEN Ordering Facility: [facility] Address: [address] [place] [address] Result Comment: No e vidence of HIV-1 or HIV-2 infection. Should recent infection be suspected, repeat testing may be considered 2-3 weeks after this draw. [place] Rev. Code 3701.243(E): This information has been disclosed to you from confidential records protected from disclosure by state law. You shall make no further disclosure of this information without the specific, written, and informed release of the individual to whom it pertains or as otherwise permitted by state law. A general authorization for the release of medical or other information is not sufficient for the purpose of the release of HIV test results or diagnoses. Performed By: #### 5 5454-3 #### [facility] CLIA [id number] [address] [place] [address] [place] HbA1c (Bld)on 09-28-2024 Average glucose Estimated from glycated hemoglobin (Bld) [Mass/Vol] 97 mg/dL Normal [facility] Comment on above: Order Comment: Speci men Type: BLOOD SPECIMEN Ordering Facility: [facility] Address: [address] [place] [address] Result Comment: eAG: (Estimated average glucose) is a calculated value from HgbA1c and is outside sales representative of the average blood glucose level in the last 2-3 month period. Performed By: #### 5 5454-3 #### [facility] CLIA [id number] [address] [place] [address] [place] HbA1c (Bld) [Mass fraction] 5.0 % Normal 4.3-5.6 [facility] Comment on above: Order Comment: Jese eller Type: BLOOD SPECIMEN Ordering Facility: [facility] Address: [address] [place] [address] Result Comment: [place] Diabetes Association guidelines indicate that patients with HgbA1c in the range 5.7-6.4% are at increased risk for development of diabetes, and intervention by lifestyle modification may be beneficial. HgbA1c greater or equal to 6.5% is considered diagnostic of diabetes. Performed By: #### 5 5454-3 #### [facility] CLIA [id number] [address] [place] [address] [place] RUBELLA IGG ANTIBODYon 09-28 RUBELLA IGG AB, QUAL Positive Normal Positive [facility] Comment on above: Order Comment: Jese eller Type: BLOOD SPECIMEN Ordering Facility: [facility] Address: [address] [place] [address] Result Comment: The result suggests recent or past exposure to Rubella virus or history of Rubella vaccination. Positive result may also be seen due to presence of passively-transferred antibodies. Please correlate with patient's history. Performed By: #### R UBIGG #### [facility] CLIA [id number] [address] [place] [address] [place] Reagin and Treponema pallidu m IgG and IgM [Interp]on 09-28-2024 T. pallidum IgG+IgM IA Ql (S) Non-Reactive Normal Nonreactive [facility] Comment on above: Order Comment: Jese [facility] Type: BLOOD SPECIMEN Ordering Facility: [facility] Address: [address] [place] [address] Performed By: #### 5 5454-3 #### [facility] CLIA [id number] [address] [place] [address] [place] Reagin+T pallidum IgG+IgM Se rPl-Impon 09-28-2024 Reagin and Treponema pallidum IgG and IgM [Interp] Cannot exclude recent Treponemal infection if specimen collected within 7-10 days after appearance of suspect lesions or 2-3 weeks after an exposure. Clinical correlation is required. Normal [facility] Comment on above: Order Comment: Speci men Type: BLOOD SPECIMEN Ordering Facility: [facility] Address: [address] [place] [address] Performed By: #### 5 5454-3 #### [facility] CLIA [id number] [address] [place] [address] [place] TYPE + SCREEN PRENATALon ABO A Normal [facility] Comment on above: Order Comment: Speci men Type: BLOOD SPECIMENOrdering Facility: [facility] Address: [address] [place] [address] Performed By: #### T SPN ####[facility] BANKCLIA [id number] [place] [address] [place] Rh Nom (Bld) Positive Normal [facility] Comment on above: Order Comment: Speci men Type: BLOOD SPECIMENOrdering Facility: [facility] Address: [address] [place] [address] Performed By: #### T SPN ####[facility] BLOOD BANKCLIA [id number] [place] [address] [place] TYPE AND SCREEN EXPIRATION 10/01/2024 23:59 Normal [facility] Comment on above: Order Comment: Speci men Type: BLOOD SPECIMENOrdering Facility: [facility] Address: [address] [place] [address] Performed By: #### T SPN ####CC MAIN BLOOD [facility] [id number] [place] [address] [place] Bacteria Ur Culton Bacteria identified Cx Nom (U) ORGANISM ID: 1 10,000 -<50,000 CFU/ml Normal urogenital meli Normal [facility] Comment on above: Performed By: #### 6 30-4 ####[facility] [id number] [place] [address] [place] C. trachomatis+N. gonorrhoea e DNA ROMAN+probe Ql (Unsp spec)on 09-27-2024 C. trachomatis rRNA ROMAN+probe Ql (Unsp spec) Not detected Not detected [facility] Interpretation and review of laboratory results Normal [facility] N. gonorrhoeae rRNA ROMAN+probe Ql (Unsp spec) Not detected Not detected [facility] This FDA-approved assay has been modified to accept rectal swabs self-collected in a healthcare setting. For self-collected rectal swabs, the test was developed and its performance characteristics determined by the [facility]'s [facility] [place] ([facility]PL[facility]). It has not been cleared or approved by the FDA. -[facility] is regulated under CLIA as qualified to perform high-complexity testing. This test is used for clinical purposes. It should not be regarded as investigational or for research. [facility] C. trachomatis rRNA ROMAN+probe Ql (Unsp spec) Not detected Normal Not detected [facility] Comment on above: Order Comment: Speci men Type: SWABOrdering Facility: [facility] Address: [address] [place] [address] Performed By: #### 3 6902-5, TRVAMP ####[facility] [id number] [place] [address] [place] N. gonorrhoeae rRNA ROMAN+probe Ql (Unsp spec) Not detected Normal Not detected [facility] Comment on above: Order Comment: Speci men Type: SWABOrdering Facility: [facility] Address: [address] [place] [address] Performed By: #### 3 6902-5, BELLA ####[facility] EVELYN [id number] [facility]ITALAnt [facility]OS[facility]ITALLizbet [place] [id number] [facility] Beckie 09-27-2024 CNPN Telephone (ROGERWST) ESHA FRANCOIS ([id number]) 4 F Date Time Provider Department 09/27/24 ILENE MOLINA During your visit today, we recorded the following information about you: Ilene Molina MSW 09/27/2024 12:58 PM Signed Sw sent patient My Chart message with [facility] website noted for needs such as food, housing, transportation. Allergies As of Date: 09/27/2024 (No Known Allergies) Date Reviewed: 09/27/2024 Reviewed by: Eduardo Garcia MA - Fully Assessed Prescriptions as of 09/27/2024 - aspirin, enteric coated (ECOTRIN LOW STRENGTH) 81 mg EC tablet Take 1 tablet by mouth once daily. - ascorbic acid (VITAMIN C ORAL) Take by mouth. - cholecalciferol (VITAMIN D) 1,000 unit tab tablet Take 1,000 Units by mouth once daily. - lamoTRIgine (LAMICTAL) 200 mg tablet take 1 tablet by mouth once daily - venlafaxine ER (EFFEXOR XR) 150 mg 24 hr capsule Take 1 capsule by mouth once daily. - metFORMIN ER (GLUCOPHAGE XR) 500 mg 24 hr tablet Take 2 tablets by mouth two times a day. Take daily with either breakfast or lunch and Dinner - Mefenamic Acid 250 mg cap Take 1 capsule by mouth every 6 hours as needed. Problem List As Of Date 09/27/2024 Noted Resolved Anxiety with depression [F41.8] 12/05/2020 Sleep disturbance [G47.9] 12/05/2020 SOTO (generalized anxiety disorder) [F41.1] 04/07/2021 Hypersomnolence [G47.10] 05/15/2021 Overweight (BMI 25.0-29.9) [E66.3] 07/16/2021 Chronic bilateral low back pain without sciatic*07/16/2021 Obesity, Class I, BMI 30-34.9 [E66.811] 12/18/2021 Strain of lumbar region [S39.012A] 12/07/2022 Leg length inequality [M21.70] 12/07/2022 Circadian rhythm sleep disorder, delayed sleep *12/10/2022 Encounter for supervision of high risk pregnanc*09/27/2024 PTSD (post-traumatic stress disorder) [F43.10] 09/27/2024 Anxiety [F41.9] 09/27/2024 Severe obesity due to excess calories affecting*09/27/2024 Encounter Status:Closed by ILENE MOLINA on 09/27/24 [facility] Telephone (PSYRMN) ESHA FRANCOIS ([id number]) 4 F Date Time Provider Department 09/27/24 ANALIA ATWOOD PSYRMN During your visit today, we recorded the following information about you: Analia Atwood LISW 09/27/2024 12:41 PM Signed Phone call to patient regarding [facility] referral. Patient did not answer, left message. [facility] SW can be reached at: [place]: [phone] [place]:[phone] Allergies As of Date: 09/27/2024 (No Known Allergies) Date Reviewed: 09/27/2024 Reviewed by: Eduardo Garcia MA - Fully Assessed Reason for Visit: [facility] Consult Follow Up [Other] Prescriptions as of 09/27/2024 - aspirin, enteric coated (ECOTRIN LOW STRENGTH) 81 mg EC tablet Take 1 tablet by mouth once daily. - ascorbic acid (VITAMIN C ORAL) Take by mouth. - cholecalciferol (VITAMIN D) 1,000 unit tab tablet Take 1,000 Units by mouth once daily. - lamoTRIgine (LAMICTAL) 200 mg tablet take 1 tablet by mouth once daily - venlafaxine ER (EFFEXOR XR) 150 mg 24 hr capsule Take 1 capsule by mouth once daily. - metFORMIN ER (GLUCOPHAGE XR) 500 mg 24 hr tablet Take 2 tablets by mouth two times a day. Take daily with either breakfast or lunch and Dinner - Mefenamic Acid 250 mg cap Take 1 capsule by mouth every 6 hours as needed. Problem List As Of Date 09/27/2024 Noted Resolved Anxiety with depression [F41.8] 12/05/2020 Sleep disturbance [G47.9] 12/05/2020 SOTO (generalized anxiety disorder) [F41.1] 04/07/2021 Hypersomnolence [G47.10] 05/15/2021 Overweight (BMI 25.0-29.9) [E66.3] 07/16/2021 Chronic bilateral low back pain without sciatic*07/16/2021 Obesity, Class I, BMI 30-34.9 [E66.811] 12/18/2021 Strain of lumbar region [S39.012A] 12/07/2022 Leg length inequality [M21.70] 12/07/2022 Circadian rhythm sleep disorder, delayed sleep *12/10/2022 Encounter for supervision of high risk pregnanc*09/27/2024 PTSD (post-traumatic stress disorder) [F43.10] 09/27/2024 Anxiety [F41.9] 09/27/2024 Severe obesity due to excess calories affecting*09/27/2024 Encounter Status:Closed by ANALIA ATWOOD on 09/27/24 Normal [facility] PAP TESTon 09-27-2024 ADEQUACY Normal [facility] Comment on above: Order Comment: Speci men Type: FLUID SPECIMENOrdering Facility: [facility] Address: [address] [place] [address] Result Comment: Sati sfactory for interpretation. Limited cellularity. Transformation zone present Performed By: #### L [id number] ####[facility] LABCLIA [id number] [place] [address] [place] CASE REPORT Normal [facility] Comment on above: Order Comment: Speci men Type: FLUID SPECIMENOrdering Facility: [facility] Address: [address] [place] [address] Result Comment: Gyne cologic Cytology Report Case: [id number] Authorizing Provider: Kourtney Okeefe APRN.CNM Collected: 09/27/2024 09:37 AM Ordering Location: OB/Gynecology Received: 09/27/2024 12:15 PM First Screen: Aramouni, [place], [place], ASCP Specimen: Pap Test, ThinPrep, Cervix Performed By: #### L [id number] ####[facility] LABCLIA [id number] [place] [id number] [place] CLINICAL HISTORY, CYTOLOGY, QUANTITATIVE CONSULTANT Routine Exam Normal [facility] Comment on above: Order Comment: Speci men Type: FLUID SPECIMENOrdering Facility: [facility] Address: [address] [place] [address] Performed By: #### L [id number] ####[facility] LABCLIA [id number] [place] [address] [place] FINAL PERFORMING LAB Normal [facility] Comment on above: Order Comment: Speci men Type: FLUID SPECIMENOrdering Facility: [facility] Address: [address] [place] [address] Result Comment: Tech nical component, sheet metal shop helper screening performed at: [facility], [address] [place] [address] [place] [address] CLIA: [id number] Diagnostic interpretation performed at: [facility], [address] [place] [address] [place] [address] CLIA# [id number] Production Potter: Vernon Christina MD Performed By: #### L [id number] ####[facility] LABCLIA [id number] [address] [address] [place] INTERPRETATION, CYTOLOGY, QUANTITATIVE CONSULTANT Normal [facility] Comment on above: Order Comment: Speci men Type: FLUID SPECIMENOrdering Facility: [facility] Address: [address] [place] [address] Result Comment: Nega tive for intraepithelial lesion or malignancy. at 1332 EDT Performed By: #### L [id number] ####[facility] LABCLIA [id number] [place] [id number] [place] LMP 07/24/2024 Normal [facility] Comment on above: Order Comment: Speci men Type: FLUID SPECIMENOrdering Facility: [facility] Address: [address] [place] [address] Performed By: #### L [id number] ####[facility] LABCLIA [id number] [place] [id number] [place] PAP DISCLAIMER COMMENT The Pap Smear is a screening test for cervical cancer. False negative results occur with all screening tests, emphasizing the need for rescreening at recommended intervals, and clinical correlation. Normal [facility] Comment on above: Order Comment: Speci men Type: FLUID SPECIMENOrdering Facility: [facility] Address: [address] [place] [address] Performed By: #### L [id number] ####[facility] LABIA [id number] [place] [id number] [place] PAP PLASTIC SURGERY SPECIALIST COMMENT This specimen has been analyzed by the FDA-approved [employer] System, which uses digital imaging and an enhanced artificial intelligence image analysis algorithm to identify fleming of interest on the microscopic slide, to assist the paster operator and pathologist in evaluating cells on ThinPrep Pap tests. Following analysis, fleming of interest on the microscopic slide selected by the algorithm are reviewed by a paster operator. If a sample requires hierarchical review, the pathologist will review the same fleming of interest selected by the algorithm prior to final interpretation. Normal [facility] Comment on above: Order Comment: Speci men Type: FLUID SPECIMENOrdering Facility: [facility] Address: [address] [place] [address] Performed By: #### L [id number] ####[facility] LABCLIA [id number] [place] [address] [place] POC BOBTAILER ULTRASOUNDon 09-28-19 Indication Viability; confirm cardiac activity, Uncertain dates Impression Single intrauterine gestational sac, CRL indicates discrepancy from clinical dates, YADIRA based on today's ultrasound, cardiac activity is visualized Recommendations Follow up for 1st Trimester Anatomy with Nuchal Translucency as clinically indicated if desired. Method Transvaginal ultrasound examination Weber . Number of embryos: 1 Dating LMP on: 07/24/2024 GA by LMP 9 w + 2 d YADIRA by LMP: 04/30/2025 Ultrasound examination on: 09/27/2024 GA by U/S based upon: CRL GA by U/S 7 w + 1 d YADIRA by U/S: 05/15/2025 Assigned: based on ultrasound (CRL), selected on 09/27/2024 Assigned GA 7 w + 1 d Assigned YADIRA: 05/15/2025 Biometry Standard FHR 164 bpm CRL 10.1 mm 7w 1d 81% Hadlock Assessment Gestational sac: visualized Location: intrauterine Yolk sac: visualized Embryo: visualized CRL 10.1 mm 7w 1d 81% [facility]lock Cardiac activity: present FHR 164 bpm General Evaluation Cardiac activity present. FHR 164 bpm Performed By: Kourtney Okeefe CNM Read By: Kourtney Okeefe CNM MATERNAL MEDICINE [facility] Radiology Study observation (narrative) [facility] TRICHOMONAS VAGINALIS NAATon 09-27-2024 T. vaginalis DNA ROMAN+probe Ql (Unsp spec) Not detected Normal Not detected [facility] Comment on above: Order Comment: Speci men Type: SWABOrdering Facility: [facility] Address: [address] [place] [address] Performed By: #### 3 [id number], TRVAMP ####[facility] LABCLIA [id number] [address] [place] Absolute lymphocyte countOrd ered By: Bruce Law on 08-26-2024 Lymphocytes Auto (Unsp spec) [#/Vol] 2.36 10*3/uL 0.83-4.51 [facility] Absolute neutrophil countOrd ered By: Bruce Law on 08-26-2024 Neutrophils (Bld) [#/Vol] 3.2 10*3/uL 2.0-7.7 [facility] Anion gap in Serum or Plasma Ordered By: Bruce Law on 08-26-2024 Anion gap [Moles/Vol] 11 mmol/L 5- [facility] Automated lymphocyte count a s percentage of total leukocytesOrdered By: Bruce Law on 08-26-2024 Lymphocytes/100 WBC Auto (Unsp spec) 37.8 % [facility] BUN/creatinine ratioOrdered By: Brucejuan carlos Law on 08-26-2024 Urea nitrogen/Creatinine [Mass ratio] 6.6 mg/mg Low 02-05 [facility] Basic Metabolic Profile (BMP )on 08-26-2024 BUN/CRE 6.6 RATIO Low 02-05 [facility] Comment on above: Performed By: #### L 500.2500, L100.0100, L700.6800 #### [facility] [address] [place], [address] Calcium [Mass/Vol] 9.4 mg/dL Normal 7.6-11.0 [facility] Comment on above: Performed By: #### L 500.2500, L100.0100, L700.6800 #### [facility] [address] [place], [address] Chloride [Moles/Vol] 109 mmol/L High 98-108 [facility] Comment on above: Performed By: #### L 500.2500, L100.0100, L700.6800 #### [facility] [address] [place], [address] CO2 [Moles/Vol] 20.1 mmol/L Low 21.0-32.0 [facility] Comment on above: Performed By: #### L 500.2500, L100.0100, L700.6800 #### [facility] [address] [place], [address] Creatinine [Mass/Vol] 0.78 mg/dL Normal 0.70-1.20 [facility] Comment on above: Performed By: #### L 500.2500, L100.0100, L700.6800 #### [facility] [address] [place], [address] ECRCL 117.54 ml/min Normal 50-250 [facility] Comment on above: Performed By: #### L 500.2500, L100.0100, L700.6800 #### [facility] [address] [place], [address] GAP 11 Normal 5-15 [facility] Comment on above: Performed By: #### L 500.2500, L100.0100, L700.6800 #### [facility] [address] [place], [address] GFR/1.73 sq M.predicted among non-blacks MDRD (S/P/Bld) [Vol rate/Area] 110 mL/min/{1.73_m2} Normal >60 [facility] Comment on above: Result Comment: mL/m in/1.73m2 CKD-EPI Creatinine Equation (2020) Performed By: #### L 500.2500, L100.0100, L700.6800 #### [facility] [address] [place], [address] Glucose [Mass/Vol] 106 mg/dL High 70-99 [facility] Comment on above: Performed By: #### L 500.2500, L100.0100, L700.6800 #### [facility] [address] [place], [address] Potassium [Moles/Vol] 4.2 mmol/L Normal 3.3-5.1 [facility] Comment on above: Performed By: #### L 500.2500, L100.0100, L700.6800 #### [facility] [address] [place], [address] Sodium [Moles/Vol] 140 mmol/L Normal 133-145 [facility] Comment on above: Performed By: #### L 500.2500, L100.0100, L700.6800 #### [facility] [address] [place], [address] Urea nitrogen [Mass/Vol] 5 mg/dL Normal 4-19 [facility] Comment on above: Performed By: #### L 500.2500, L100.0100, L700.6800 #### [facility] [address] [place], [address] Basophil percentageOrdered B y: Bruce Law on 08-26-2024 Basophils/100 WBC (Bld) 0.8 % 0-1 [facility] Bilirubin Test strip Ql (U)O rdered By: Bruce Law on 08-26-2024 Bilirubin Ql (U) Negative Negative [facility] CBC W/Diff, Automatedon 08-17-2024 Absolute Lymph 2.36 X10 3/uL Normal 0.83-4.51 [facility] Comment on above: Performed By: #### L 500.2500, L100.0100, L700.6800 #### [facility] [address] [place], [address] Absolute Neut 3.2 X10 3/uL Normal 2.0-7.7 [facility] Comment on above: Performed By: #### L 500.2500, L100.0100, L700.6800 #### [facility] [address] [place], [address] Basophils/100 WBC (Bld) 0.8 % Normal 0-1 [facility] Comment on above: Performed By: #### L 500.2500, L100.0100, L700.6800 #### [facility] [address] [place], [address] Eosinophils/100 WBC (Bld) 1.1 % Normal 0-5 [facility] Comment on above: Performed By: #### L 500.2500, L100.0100, L700.6800 #### [facility] [address] [place], [address] Erythrocyte distribution width (RBC) [Ratio] 13.6 % Normal 11.6-14.6 [facility] Comment on above: Performed By: #### L 500.2500, L100.0100, L700.6800 #### [facility] [address] [place], [address] Hematocrit (Bld) [Volume fraction] 44.5 % Normal 37-47 [facility] Comment on above: Performed By: #### L 500.2500, L100.0100, L700.6800 #### [facility] [address] [place], [address] Hemoglobin (Bld) [Mass/Vol] 14.4 g/dL Normal 12.0-15.0 [facility] Comment on above: Performed By: #### L 500.2500, L100.0100, L700.6800 #### [facility] [address] [place], [address] IG% 0.300 Normal 0.0-0.9 [facility] Comment on above: Result Comment: IG% - Immature Granulocytes (promyelocytes, myelocytes and metamyelocytes) > 1% indicates that a LEFT SHIFT is Present. Performed By: #### L 500.2500, L100.0100, L700.6800 #### [facility] [address] [place], [address] Lymphocytes/100 WBC (Bld) 37.8 % Normal 19-41 [facility] Comment on above: Performed By: #### L 500.2500, L100.0100, L700.6800 #### [facility] [address] [place], [address] MCH (RBC) [Entitic mass] 27.5 pg Normal 27.0-32.0 [facility] Comment on above: Performed By: #### L 500.2500, L100.0100, L700.6800 #### [facility] [address] [place], [address] MCHC (RBC) [Mass/Vol] 32.4 g/dL Normal 32-36 [facility] Comment on above: Performed By: #### L 500.2500, L100.0100, L700.6800 #### [facility] [address] [place], [address] MCV (RBC) [Entitic vol] 84.9 fL Normal 81-99 [facility] Comment on above: Performed By: #### L 500.2500, L100.0100, L700.6800 #### [facility] [address] [place], [address] Monocytes/100 WBC (Bld) 9.3 % Normal 0-10 [facility] Comment on above: Performed By: #### L 500.2500, L100.0100, L700.6800 #### [facility] [address] [place], [address] Neutrophils/100 WBC (Bld) 50.7 % Normal 47-70 [facility] Comment on above: Performed By: #### L 500.2500, L100.0100, L700.6800 #### [facility] [address] [place], [address] Nucleated RBC (Bld) [#/Vol] 0 10*3/uL Normal 0-5 [facility] Comment on above: Performed By: #### L 500.2500, L100.0100, L700.6800 #### [facility] [address] [place], [address] Platelet mean volume (Bld) [Entitic vol] 9.5 fL Normal 6.2-12.0 [facility] Comment on above: Performed By: #### L 500.2500, L100.0100, L700.6800 #### [facility] [address] [place], [address] Platelets (Bld) [#/Vol] 344 10*3/uL Normal 150-450 [facility] Comment on above: Performed By: #### L 500.2500, L100.0100, L700.6800 #### [facility] [address] [place], [address] RBC (Bld) [#/Vol] 5.24 10*6/uL Normal 4.2-5.4 [facility] Comment on above: Performed By: #### L 500.2500, L100.0100, L700.6800 #### [facility] [address] [place], [address] RDW SD 42.4 fl Normal 35.1-43.9 [facility] Comment on above: Performed By: #### L 500.2500, L100.0100, L700.6800 #### [facility] [address] [place], [address] WBC (Bld) [#/Vol] 6.3 10*3/uL Normal 4.4-11.0 [facility] Comment on above: Performed By: #### L 500.2500, L100.0100, L700.6800 #### [facility] [address] [place], [address] CNOVon 08-26-2024 CNOV Office Visit (UCWSTR ) ESHA FRANCOIS ([id number]) 4 F Date Time Provider Department 08/26/24 1:00 PM SHREYAS GARCIA [facility] During your visit today, we recorded the following information about you: Shreyas Garcia APRN.COMMUNICATION ANALYST 08/26/2024 1:14 PM Signed Patient woke up with severe abdominal pain. Patient is bent over crying. Patient can hardly even answer the questions. Patient's boyfriend said that it is coming and going but is very severe. Patient says she has had cyst burst before. Says it might be this. She is not sure. Due to the amount of pain patient send patient is being referred to the emergency room boyfriend will take her now. Allergies As of Date: 08/26/2024 (No Known Allergies) Date Reviewed: 08/04/2024 Reviewed by: Michael Sigala MA - Fully Assessed Primary Visit Diagnosis:Abdominal pain, unspecified abdominal location [R10.9] Prescriptions as of 08/26/2024 - venlafaxine ER (EFFEXOR XR) 150 mg 24 hr capsule Take 1 capsule by mouth once daily. - metFORMIN ER (GLUCOPHAGE XR) 500 mg 24 hr tablet Take 2 tablets by mouth two times a day. Take daily with either breakfast or lunch and Dinner - lamoTRIgine (LAMICTAL) 200 mg tablet take 1 tablet by mouth once daily - Mefenamic Acid 250 mg cap Take 1 capsule by mouth every 6 hours as needed. Problem List As Of Date 08/26/2024 Noted Resolved Anxiety with depression [F41.8] 12/05/2020 Sleep disturbance [G47.9] 12/05/2020 SOTO (generalized anxiety disorder) [F41.1] 04/07/2021 Hypersomnolence [G47.10] 05/15/2021 Overweight (BMI 25.0-29.9) [E66.3] 07/16/2021 Chronic bilateral low back pain without sciatic*07/16/2021 Obesity, Class I, BMI 30-34.9 [E66.811] 12/18/2021 Strain of lumbar region [S39.012A] 12/07/2022 Leg length inequality [M21.70] 12/07/2022 Circadian rhythm sleep disorder, delayed sleep *12/10/2022 Encounter Status:Closed by SHREYAS GARCIA on 08/26/24 Normal [facility] Carbon dioxide, total [Moles /volume] in Central venous bloodOrdered By: Bruce Law on 08-26-2024 CO2 [Moles/Vol] 20.1 mmol/L Low 21.0-32.0 [facility] Chloride assayOrdered By: Alla Law on 08-26-2024 Chloride [Moles/Vol] 109 mmol/L High 98-108 [facility] Emergency Department Summary on 08-26-2024 Emergency Department Summary [facility] Medical Records Department [address] [place] [address] Emergency Department Summary 08/26/24 MR#: [id number] Acct: [id number] Name: ESHA FRANCOIS Rep #: [id number] : 2000 23 From: Bruce Law MD PCP: Care Physician,No Primary Status:REG ER Location: ED HPI HPI - GI History of Present Illness Chief Complaint: Abd Pain Informant: patient and spouse/S.O. Narrative Narrative: 23-year-old female woke up this morning with diffuse significant pelvis pain around 2 AM, 11 hours ago. She states this is similar pain to when she had a ruptured ovarian cyst in the past except it is not lateralizing this time and is throughout her pelvis. Nausea but no vomiting although she states she has had intermittent vomiting for the last couple weeks. She states she is about 3 days late on her menstrual cycle did a home test that was negative. She denies any abnormal vaginal discharge or bleeding today. She denies any fevers or chills. Pain does not go into her back. No history of abdominal surgeries. PFSH PFSH Home Medications ???Medication ???Instructions ???Recorded ???Last Taken ???Type venlafaxine 150 mg 150 mg PO DAILY 06/09/21 Unknown H istory capsule,extended release 24 hr (Effexor XR) dicyclomine 10 mg capsule 20 mg (2 x 10 mg) PO TIDAC #20 Unknown Rx CAPSULES ondansetron 4 mg disintegrating 4 mg PO Q8H PRN PRN Nausea #10 tab s 05/19/22 Unknown Rx tablet lamotrigine 200 mg tablet 200 mg PO DAILY 06/15/23 Unknown H istory Allergy/AdvReac Type Severity Reaction Status Date / Time No Known Allergies Allergy Verified 08/26/24 13:18 Social History Smoking Status: Current every day smoker tobacco type: e-cigarettes ROS ROS ED Constitutional Constitutional ED: Denies chills or fever(s) Eyes Eyes: Denies change in vision or diplopia ENT ENT ED: Denies rhinorrhea or sore throat Cardiovascular Cardiovascular: Denies chest pain or palpitations Respiratory/Chest Respiratory/Chest: Denies cough or dyspnea Gastrointestinal Gastrointestinal: Reports abdominal pain and nausea; Denies diarrhea or vomiting Genitourinary Genitourinary ED: Reports other Details: no abn vag d/c ; Denies dysuria or hematuria Musculoskeletal Musculoskeletal: Reports back pain; Denies neck pain Integumentary Denies abscess or rash Neurologic Neurologic: Denies headache(s), paresthesias or weakness Psychiatric Psychiatric: Denies anxiety or suicidal thoughts EXAM Physical Exam Const Vital Signs: 08/26/24 13:18 Temperature 97.8 F Temperature Source Oral Pulse Rate 88 Respiratory Rate 16 Blood Pressure 130/92 H Blood Pressure Mean 104 Pulse Ox 100 Oxygen Delivery Method Room Air Positive well nourished and well developed General Appearance ED: well developed and NAD HEENT Reports moist mucous membranes normocephalic and atraumatic Eyes PERRL and EOMs intact bilaterally Neck full ROM and supple Resp normal respiratory effort and clear to auscultation bilaterally Cardio regular rate, regular rhythm and no murmurs GI non-distended GI Narrative: Tender throughout pelvis without guarding or rebound Auscultation: normoactive bowel sounds Palpation: soft Back/Spine no CVA tenderness General Back: other FROM Extremity normal to inspection General Extremety ED: Negative for edema, pulses abnormal or tenderness General Extremity: Negative for edema or pulses abnormal Neuro oriented x3, CN's II-XII intact bilaterally and no sensory deficits noted Sensorium / Orientation: awake and alert Motor Exam: strength 5/5 throughout Psych thought process normal Mood Affect: anxious and tearful Skin no rashes or lesions noted and no wounds MDM MDM MDM Narrative Medical decision making narrative: In order to rule out ectopic, serum qualitative was obtained it is negative ruling that out essentially. Blood counts are good, making TOA less likely, but given the possibility of torsion because of how much pain she is in, transvaginal ultrasound is obtained. She is feeling much better after IV Toradol and Zofran. I reviewed the ultrasound images and the result which I agree with, it is essentially normal. It is noted that there was some free fluid in the cul-de-sac, this could be consistent with a ruptured ovarian cyst, which with the findings patient states she had before when she had this pain. Since she has no symptoms of an STI or leukocytosis I do not think she has PID. She is comfortable going home and treating with [id number] medications and following up if pain persists. Lab Data Attestation: I reviewed the patient's lab results. Labs: Laboratory Results - l (more content not included)... Normal [facility] Eosinophil percentageOrdered By: Bruce Law on 08-26-2024 Eosinophils/100 WBC (Bld) 1.1 % 0-5 [facility] Erythrocyte distribution wid th ratioOrdered By: Bruce Law on 08-26-2024 Erythrocyte distribution width (RBC) [Ratio] 13.6 % 11.6-14.6 [facility] Erythrocyte distribution wid th standard deviationOrdered By: Bruce Law on 08-26-2024 Erythrocyte distribution width (RBC) [Ratio] 42.4 fl 35.1-43.9 [facility] Glomerular filtration rate ( GFR) estimation/1.73 sq m using serum, plasma, or whole bOrdered By: Bruce Law on 08-26-2024 GFR/1.73 sq M.predicted among non-blacks MDRD (S/P/Bld) [Vol rate/Area] 110 mL/min/{1.73_m2} >60 [facility] Comment on above: mL/min/1.73m2 CKD-EP I Creatinine Equation (2020) Hematocrit Auto (Bld) [Volum e fraction]Ordered By: Bruce Law on 08-26-2024 Hematocrit (Bld) [Volume fraction] 44.5 % 37-47 [facility] Hemoglobin measurementOrdere d By: Bruce Law on 08-26-2024 Hemoglobin (Bld) [Mass/Vol] 14.4 g/dL 12.0-15.0 [facility] Immature granulocytes/100 WB C Auto (Bld)Ordered By: Bruce Law on 08-26-2024 Immature granulocytes/100 WBC (Bld) 0.300 % 0.0-0.9 [facility] Comment on above: IG% - Immature Granu locytes (promyelocytes, myelocytes and metamyelocytes) > 1% indicates that a LEFT SHIFT is Present. Ketones Test strip Ql (U)Ord ered By: Bruce Law on 08-26-2024 Ketones Ql (U) 5 mg/dl High Negative [facility] MCV (mean corpuscular volume ) determinationOrdered By: Bruce Law on 08-26-2024 MCV (RBC) [Entitic vol] 84.9 fL 81-99 [facility] Mean corpuscular hemoglobin (MCH) determinationOrdered By: Bruce Law on 08-26-2024 MCH (RBC) [Entitic mass] 27.5 pg 27.0-32.0 [facility] Mean corpuscular hemoglobin concentration (MCHC) determinationOrdered By: Bruce Law on 08-26-2024 MCHC (RBC) [Mass/Vol] 32.4 g/dL 32-36 [facility] Mean platelet volume determi nationOrdered By: Bruce Law on 08-26-2024 Platelet mean volume (Bld) [Entitic vol] 9.5 fL 6.2-12.0 [facility] Microscopic analysis of urin e for red blood cells (RBC)Ordered By: Bruce Law on 08-26-2024 Microscopic analysis of urine for red blood cells (RBC) 0 SEEN /hpf 0-5 [facility] Monocyte percentageOrdered B y: Bruce Law on 08-26-2024 Monocytes/100 WBC (Bld) 9.3 % 0-10 [facility] Mucus LM Ql (Urine sed)Order ed By: Bruce Law on 08-26-2024 Mucus Ql (Urine sed) 0 SEEN /hpf [facility] Neutrophil percentageOrdered By: Bruce Law on 08-26-2024 Neutrophils/100 WBC (Bld) 50.7 % 47-70 [facility] Nitrite Test strip Ql (U)Ord ered By: Bruce Law on 08-26-2024 Nitrite Ql (U) Negative Negative [facility] Nucleated red blood cell per centageOrdered By: Bruce Law on 08-26-2024 Nucleated RBC/100 WBC (Bld) [Ratio] 0 % 0-5 [facility] Platelet countOrdered By: Alla Law on 08-26-2024 Platelets (Bld) [#/Vol] 344 10*3/uL 150-450 [facility] Potassium measurement (mass/ volume)Ordered By: Bruce Law on 08-26-2024 Potassium (Unsp spec) [Mass/Vol] 4.2 mmol/L 3.3-5.1 [facility] ,Serum,hCG Quali.on 08-26-2024 HCG, SERUM QUAL Negative Normal [facility] Comment on above: Performed By: #### L 500.2500, L100.0100, L700.6800 #### [facility] [address] [place], [address] Protein Test strip Ql (U)Ord ered By: Bruce Law on 08-26-2024 Protein Ql (U) 15 mg/dl High Negative [facility] RBC Auto (Bld) [#/Vol]Ordere d By: Bruce Law on 08-26-2024 RBC (Bld) [#/Vol] 5.24 10*6/uL 4.2-5.4 [facility] Serum beta-hCG test, qualita tiveOrdered By: Bruce Law on 08-26-2024 Beta HCG ( test) Ql Negative [facility] Serum creatinine measurement (mass/volume)Ordered By: Bruce Law on 08-26-2024 Creatinine [Mass/Vol] 0.78 mg/dL 0.70-1.20 [facility] Serum glucose measurement (m ass/volume)Ordered By: Bruce Law on 08-26-2024 Glucose [Mass/Vol] 106 mg/dL High 70-99 [facility] Serum or plasma calcium darren urement (mass/volume)Ordered By: Bruce Law on 08-26-2024 Calcium [Mass/Vol] 9.4 mg/dL 7.6-11.0 [facility] Serum or plasma urea nitroge n measurement (mass/volume)Ordered By: Bruce Law on 08-26-2024 Urea nitrogen [Mass/Vol] 5 mg/dL 4-19 [facility] Sodium levelOrdered By: Silver Law on 08-26-2024 Sodium [Moles/Vol] 140 mmol/L 133-145 [facility] Squamous epithelial cells de tection in urine sediment by light microscopyOrdered By: Bruce Law on 08-26-2024 Epithelial cells.squamous LM Ql (Urine sed) 0-5 SEEN /hpf 5-10 [facility] Transvaginal Non-on 08-26-2024 Transvaginal Non- [facility] [address] [place], [place] [address] Transvaginal Non- MR#: [id number] Acct: [id number] Name: ESHA FRANCOIS Rep #: [id number] : 2000 F 23 From: Sofie Headley MD PCP: Care Physician,No Primary Status: PRE ER Study: Transvaginal Non- Date of Exam: Exam# [id number] Ordering Dr: Bruce Law MD EXAM: US Pelvis Transabdominal and Transvaginal, Complete CLINICAL INDICATION: SEVERE PAIN TECHNIQUE: Real-time complete transabdominal and transvaginal pelvic ultrasound with image documentation. Transvaginal imaging was used for better evaluation of the endometrium and adnexa. COMPARISON: No relevant prior studies available. FINDINGS: UTERUS/CERVIX: Unremarkable. No myometrial mass. The uterus measures 6.8 x 4.0 x 3.3 cm. The endometrial stripe measures 0.7 cm in thickness. RIGHT OVARY: Unremarkable. Normal blood flow. The right ovary measures 2.8 x 3.0 x 1.9 cm. LEFT OVARY: Unremarkable. Normal blood flow. The left ovary measures 2.6 x 2.8 x 2.5 cm. FREE FLUID: Fluid in the cul-de-sac. BLADDER: Unremarkable as visualized. Wall is normal thickness for degree of distention. US/Transvaginal Non- IMPRESSION: No acute findings in the pelvis. Reading Location: [facility] CC: Dr. Bruce Law MD; No Primary Care Physician Coremaker Pipe: Signed Normal [facility] Urinalysis, Completeon 08-26 EPI,SQUAMOUS 0-5 SEEN Normal -10 [facility] Comment on above: Order Comment: CLEAN CATCH Performed By: #### L 400.0001 #### [facility] [address] [place], [address] BACTERIA 0 SEEN Normal None Seen [facility] Comment on above: Order Comment: CLEAN CATCH Performed By: #### L 400.0001 #### [facility] [address] [place], [address] Mucus Ql (Urine sed) 0 SEEN Normal [facility] Comment on above: Order Comment: CLEAN CATCH Performed By: #### L 400.0001 #### [facility] [address] [place], [address] RBC 0 SEEN Normal 0-5 [facility] Comment on above: Order Comment: CLEAN CATCH Performed By: #### L 400.0001 #### [facility] [address] [place], [address] WBC 0 SEEN Normal 0-5 [facility] Comment on above: Order Comment: CLEAN CATCH Performed By: #### L 400.0001 #### [facility] [address] [place], [address] Urine clarityOrdered By: Irving Law on 08-26-2024 Clarity (U) Clear Clear [facility] Urine color determinationOrd ered By: Bruce Law on 08-26-2024 Color (U) Yellow Yellow [facility] Urine glucose detectionOrder ed By: Bruce Law on 08-26-2024 Glucose Ql (U) Normal mg/dl Normal [facility] Urine leukocyte esterase det ection by dipstickOrdered By: Bruce Law on 08-26-2024 Leukocyte esterase Test strip Ql (U) Negative Negative [facility] Urine pHOrdered By: Bruce Law on 08-26-2024 pH (U) 5.0 [pH] 5.0 - 8.0 [facility] Urine sediment bacteria coun t by microscopy (number/high power field)Ordered By: Bruce Law on 08-26-2024 Bacteria LM.HPF (Urine sed) [#/Area] 0 /[HPF] None Seen [facility] Urine specific gravity measu rementOrdered By: Bruce Law on 08-26-2024 Specific gravity (U) [Rel density] 1.020 1.002-1.030 [facility] Urine urobilinogen measureme ntOrdered By: Bruce Law on 08-26-2024 Urobilinogen Ql (U) Normal mg/dl Normal [facility] White blood cell (WBC) count Ordered By: Bruce Law on 08-26-2024 WBC (Bld) [#/Vol] 6.3 10*3/uL 4.4-11.0 [facility] White blood cell countOrdere d By: Bruce Law on 08-26-2024 White blood cell count 0 SEEN /hpf 0-5 [facility] CARRIER SCREEN, STANDARDon 0 08-04-2024 CARRIER SCREEN RESULTS View results in Scanned Documents link when available. Normal [facility] Comment on above: Order Comment: Speci men Type: BLOOD SPECIMENOrdering Facility: [facility] Address: [address] [place] [address] Performed By: #### C RRSCN ####[facility] [id number] [place] [address] CNOVon 08-04-2024 CNOV Office Visit (OBGYWM ) ESHA FRANCOIS ([id number]) 4 F Date Time Provider Department 08/04/24 3:00 PM RHIANNON OLSON OBGYWM During your visit today, we recorded the following information about you: Blood pressure Weight 122/78 89.8 kg Rhiannon Olson MD 08/04/2024 3:31 PM Signed Obstetrics and Gynecology [place] [employer] Visit Subjective Recording using [employer] software for draft documentation of the visit was discussed with the patient/authorized outside sales representative; all questions welcomed and answered. Patient/authorized outside sales representative agreed to proceed CHIEF COMPLAINT: The patient is a 23-year-old female presenting for preconception counseling. HPI: Preconception Counseling - Recently discontinued oral contraceptive pills and has been actively trying to conceive since the last appointment. - Currently taking metformin and B12 supplements. - Smokes cigarettes and marijuana; denies alcohol use. -uncertain of family decent - h/o PCOS will monitor Cycles HISTORY: OB History Gravida0 Para0 Term0 Preterm0 AB0 Living0 SAB0 IAB0 Ectopic0 Multiple0 Live Births0 Certified Phlebotomist History LMP: 07/27/2024 (Within Days), Having periods Age at Menarche: Age at First : Age at Menopause: Certified Phlebotomist History Comments: Sexual Activity: Yes; No partner data on record Contraception: Condom, Not used PAST MEDICAL HISTORY Diagnosis Date Anxiety with depression 12/05/2020 Chronic bilateral low back pain without sciatica 07/16/2021 SOTO (generalized anxiety disorder) Overweight (BMI 25.0-29.9) 07/16/2021 Sleep disturbance 12/05/2020 No past surgical history on file. FAMILY HISTORY Problem Relation Age of Onset Narcolepsy Father Social History Tobacco Use Smoking status: Former Types: Cigarettes Smokeless tobacco: Never Tobacco comments: vape Vaping Use Vaping status: current everyday user Substances: Nicotine, Flavoring Devices: Pre-filled pod Substance Use Topics Alcohol use: Never Drug use: Never Current Outpatient Medications Medication Sig metFORMIN ER (GLUCOPHAGE XR) 500 mg 24 hr tablet Take 2 tablets by mouth two times a day. Take daily with either breakfast or lunch and Dinner lamoTRIgine (LAMICTAL) 200 mg tablet take 1 tablet by mouth once daily venlafaxine ER (EFFEXOR XR) 150 mg 24 hr capsule Take 1 capsule by mouth once daily. Mefenamic Acid 250 mg cap Take 1 capsule by mouth every 6 hours as needed. No current facility-administered medications for this visit. ALLERGIES No Known Allergies REVIEW OF SYSTEMS: No current ROS findings were explicitly documented in the transcript. No symptoms were reported. Objective SENSITIVE EXAM: Sensitive exam not performed. PHYSICAL EXAM: BP 122/78 Wt 198 lb (89.8kg) LMP 07/27/2024 General: No acute distress. skin: multiple skin bites/lesions on extremities- fleas? Assessment AND Plan ASSESSMENT AND PLAN: 1. Pre-conception counseling (Z31.69) - Discussed continuation of current medications, including metformin and B12 supplementation. - Recommended vitamins and vitamin D supplementation at 2,000 IU daily. - Ordered standard carrier screening for common genetic disorders such as cystic fibrosis and spinal muscular atrophy. - Advised cessation of smoking and marijuana use due to risks of chronic ear and lung infections, sudden syndrome, and lower IQ in offspring. - Emphasized importance of a healthy lifestyle, including regular exercise and consumption of whole foods. - Advised maintaining a normal weight, with a recommended weight gain of 5-15 pounds during . - Instructed to contact the clinic upon confirmation of for an appointment around the 7-8 week sofie. - If is not achieved after one year of trying (by July year), will initiate infertility workup. - CARRIER SCREENING ORDERED 2. PCOS (polycystic ovarian syndrome) (E28.2) - Continue current management with metformin- continue metformin BID - consider progesterone if needed for cycle induction 3. Tobacco dependence (F17.200) - Advised cessation of smoking due to associated risks in . 4. Cannabis dependence, uncomplicated (HCC) (F12.20) - Advised cessation of marijuana use due to potential impact on development. 5. Anxiety with depression (F41.8) - No changes to current management. 6. Class 2 obesity with body mass index (BMI) of 37.0 to 37.9 in adult, unspecified obesity type, unspecified whether serious comorbidity present (E66.812) - Discussed importance of maintaining a healthy weight prior to and during to reduce risks of obesity in offspring. Medical Decision Making: Problems: Moderate: 2+ stable chronic illnesses Data: Unique test(s) ordered: 1 Risk: Moderate: Moderate risk from testing/treatment Medical Decision Making L (more content not included)... Normal [facility] CNOVon 07-31-2024 CNOV Office Visit (OBGYWM ) PRISCILANOE KHANEE Tasha ([id number]) 4 F Date Time Provider Department 07/31/24 9:00 AM RHIANNON OLSON OBGYWM During your visit today, we recorded the following information about you: Blood pressure Weight Last Period 124/72 88 kg 07/27/24 Rhiannon Olson MD 07/31/2024 9:31 AM Signed Esha [place] is a 23 year old female who presents for follow up PCOS HPI: Taking metformin once a day (2 pills). Tried twice a day but had n/v. Has lost weight. Feels taste buds have changed and eating less. Also, taking Jovita, doing well with no side effects. Having cycles every month. Has 5-6 days of flow. 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 Acne and hair growth is the same, not as bothersome. She feels she Had a cyst rupture in April- but no concerns since that time Considering OB History Gravida0 Para0 Term0 Preterm0 AB0 Living0 SAB0 IAB0 Ectopic0 Multiple0 Live Births0 Certified Phlebotomist History LMP: 07/27/2024 (Within Days), Having periods Age at Menarche: Age at First : Age at Menopause: Certified Phlebotomist History Comments: Sexual Activity: Yes; No partner data on record Contraception: Condom, Not used PAST MEDICAL HISTORY Diagnosis Date Anxiety with depression 12/05/2020 Chronic bilateral low back pain without sciatica 07/16/2021 SOTO (generalized anxiety disorder) Overweight (BMI 25.0-29.9) 07/16/2021 Sleep disturbance 12/05/2020 No past surgical history on file. FAMILY HISTORY Problem Relation Age of Onset Narcolepsy Father Social History Tobacco Use Smoking status: Former Types: Cigarettes Smokeless tobacco: Never Tobacco comments: vape Vaping Use Vaping status: current everyday user Substances: Nicotine, Flavoring Devices: Pre-filled pod Substance Use Topics Alcohol use: Never Drug use: Never Current Outpatient Medications Medication Sig lamoTRIgine (LAMICTAL) 200 mg tablet take 1 tablet by mouth once daily metFORMIN ER (GLUCOPHAGE XR) 500 mg 24 hr tablet Take 2 tablets by mouth two times a day. Take daily with either breakfast or lunch and Dinner Drospirenone-Ethinyl Estradiol (JOVITA, 28,) 3-0.03 mg per tablet Take 1 tablet by mouth once daily. venlafaxine ER (EFFEXOR XR) 150 mg 24 hr capsule Take 1 capsule by mouth once daily. Mefenamic Acid 250 mg cap Take 1 capsule by mouth every 6 hours as needed. No current facility-administered medications for this visit. Allergies As of Date: 07/31/2024 (No Known Allergies) Fully Assessed 07/31/2024 REVIEW OF SYSTEMS Abdomen: has some diarrhea when tried to increase pills Expanded ROS: N/A Allergies and current medication updated:Yes SENSITIVE EXAM: The sensitive examination was discussed with the Patient or Patient's Authorized Broadcasting Equipment Mechanic. As applicable, any other physician, advance practice provider, medical student, or other health professional student that will be observing or involved in the sensitive examination for educational or training purposes was discussed with the Patient or Authorized Broadcasting Equipment Mechanic. The Patient or Authorized Broadcasting Equipment Mechanic has agreed to proceed with the sensitive examination. (Sensitive examination includes inspection and/or palpation of the breasts, pelvis, prostate and anorectal regions). EXAM: BP 124/72 Wt 194 lb (88.0kg) LMP 07/27/2024 GENERAL: pleasant, female in no apparent distress HEENT: Normocephalic and atraumatic NECK: full range of motion DERMATOLOGY: Normal, without lesions, non-icteric, and non-hirsute NEURO: alert and oriented x3,exam grossly non-focal EXTREMITIES: normal ASSESSMENT AND PLAN: Assessment AND Plan PCOS (polycystic ovarian syndrome) Orders: metFORMIN ER (GLUCOPHAGE XR) 500 mg 24 hr tablet; Take 2 tablets by mouth two times a day. Take daily with either breakfast or lunch and Dinner Insulin resistance - Continue metformin- ok to try to increase slowly over time BID - Continue OCPS - reviewed PNV before stopping OCPs if trying for - follow up for routine annual - start B12 vitamin, refill metformin given Medical Decision Making: Problems: Moderate: 2+ stable chronic illnesses Risk: Moderate: Drug management Medical Decision Making Level: 4 - Moderate Rhiannon Khan MD Referring Provider: RHIANNON OLSON [[id number]] Allergies As of Date: 07/31/2024 (No Known Allergies) Date Reviewed: 07/31/2024 Reviewed by: Madeline Ivory MA - Fully Assessed Reason for Visit: Medication Follow-up [270] Primary Visit Diagnosis:PCOS (polycystic ovarian syndrome) [E28.2] Other Visit Diagnosis:Insulin resistance [E88.819] Order(s):metFORMIN ER (GLUCOPHAGE XR) 500 mg 24 hr tabletTake 2 tablets by mouth two times a day. Take daily with either breakfast or lunch and DinnerDisp: 120 tabletRfl: 5 Prescriptions as of 07/31 (more content not included)... Normal [facility] CBC panel Auto (Bld)on 05-11 Erythrocyte distribution width (RBC) [Ratio] 13.1 % Normal 11.5-15.0 [facility] Comment on above: Order Comment: Speci men Type: BLOOD SPECIMENOrdering Facility: [facility] Address: [address] [place] [address] Performed By: #### 5 8410-2 ####[facility] [id number] [place] [address] [place] Hematocrit (Bld) [Volume fraction] 44.9 % Normal 36.0-46.0 [facility] Comment on above: Order Comment: Speci men Type: BLOOD SPECIMENOrdering Facility: [facility] Address: [address] [place] [address] Performed By: #### 5 8410-2 ####[facility] [id number] [place] [address] [place] Hemoglobin (Bld) [Mass/Vol] 14.5 g/dL Normal 11.5-15.5 [facility] Comment on above: Order Comment: Speci men Type: BLOOD SPECIMENOrdering Facility: [facility] Address: [address] [place] [address] Performed By: #### 5 8410-2 ####[facility] [id number] [place] [address] [place] MCH (RBC) [Entitic mass] 27.3 pg Normal 26.0-34.0 [facility] Comment on above: Order Comment: Speci men Type: BLOOD SPECIMENOrdering Facility: [facility] Address: [address] [place] [address] Performed By: #### 5 8410-2 ####[facility] [id number] [place] [address] [place] MCHC (RBC) [Mass/Vol] 32.3 g/dL Normal 30.5-36.0 [facility] Comment on above: Order Comment: Speci men Type: BLOOD SPECIMENOrdering Facility: [facility] Address: [address] [place] [address] Performed By: #### 5 8410-2 ####[facility] [id number] [place] [address] [place] MCV (RBC) [Entitic vol] 84.6 fL Normal 80.0-100.0 C [facility] Comment on above: Order Comment: Speci men Type: BLOOD SPECIMENOrdering Facility: [facility] Address: [address] [place] [address] Performed By: #### 5 8410-2 ####[facility] [id number] [place] [address] [place] Nucleated RBC (Bld) [#/Vol] 10*3/uL Normal <0.01 [facility] Comment on above: Order Comment: Speci men Type: BLOOD SPECIMENOrdering Facility: [facility] Address: [address] [place] [address] Performed By: #### 5 8410-2 ####[facility] [id number] [place] [address] [place] Platelet mean volume (Bld) [Entitic vol] 9.7 fL Normal 9.0-12.7 [facility] Comment on above: Order Comment: Speci men Type: BLOOD SPECIMENOrdering Facility: [facility] Address: [address] [place] [address] Performed By: #### 5 8410-2 ####[facility] [id number] [place] [address] [place] Platelets (Bld) [#/Vol] 368 10*3/uL Normal 150-400 [facility] Comment on above: Order Comment: Speci men Type: BLOOD SPECIMENOrdering Facility: [facility] Address: [address] [place] [address] Performed By: #### 5 8410-2 ####[facility] [id number] [place] [address] [place] RBC (Bld) [#/Vol] 5.31 10*6/uL High 3.90-5.20 [facility] Comment on above: Order Comment: Speci men Type: BLOOD SPECIMENOrdering Facility: [facility] Address: [address] [place] [address] Performed By: #### 5 8410-2 ####[facility] [id number] [place] [address] [place] WBC (Bld) [#/Vol] 10.78 10*3/uL Normal 3.70-11.[address] [facility] Comment on above: Order Comment: Speci men Type: BLOOD SPECIMENOrdering Facility: [facility] Address: [address] [place] [id number] Performed By: #### 5 8410-2 ####[facility] JOVANNY CHRISTIAN [id number] [address] [place] CNPNon 04-17-2024 CNPN Telephone (OBGYWM) ESHA FRANCOIS ([id number]) 4 F Date Time Provider Department 04/17/24 RHIANNON OLSON During your visit today, we recorded the following information about you: Radha Douglass RN 04/17/2024 8:52 AM Signed ----- Message from Rhiannon Acosta MD sent at 04/17/2024 8:38 AM EST ----- Please notify patient of elevated testosterone levels- c/w PCOS and elevated insulin levels- ideally we want under 10 so this is c/w insulin resistance which we see with PCOS- recommend Metformin as discussed at her last visit. Will start with 500mg at night- increase to 1000mg with dinner when she is comfortable. Please have her follow up in office or virtual in 8-12 weeks so I can see how she is feeling and we will discuss increasing metformin again. Will put instructions on mychart for her. Please have her read them. Radha Douglass RN 04/17/2024 8:55 AM Signed Left message for patient to call office. FRANK Trevino Jennifer, RN 04/17/2024 10:24 AM Signed Patient notified. F/U scheduled. Ni Clancy RN Allergies As of Date: 04/17/2024 (No Known Allergies) Date Reviewed: 04/07/2024 Reviewed by: Eduardo Garcia MA - Fully Assessed Reason for Visit: Results [95] Prescriptions as of 04/17/2024 - metFORMIN ER (GLUCOPHAGE XR) 500 mg 24 hr tablet Take 2 tablets by mouth daily with dinner. - Drospirenone-Ethinyl Estradiol (JOVITA, 28,) 3-0.03 mg per tablet Take 1 tablet by mouth once daily. - venlafaxine ER (EFFEXOR XR) 150 mg 24 hr capsule Take 1 capsule by mouth once daily. - lamoTRIgine (LAMICTAL) 200 mg tablet take 1 tablet by mouth once daily - Mefenamic Acid 250 mg cap Take 1 capsule by mouth every 6 hours as needed. Problem List As Of Date 04/17/2024 Noted Resolved Anxiety with depression [F41.8] 12/05/2020 Sleep disturbance [G47.9] 12/05/2020 SOTO (generalized anxiety disorder) [F41.1] 04/07/2021 Hypersomnolence [G47.10] 05/15/2021 Overweight (BMI 25.0-29.9) [E66.3] 07/16/2021 Chronic bilateral low back pain without sciatic*07/16/2021 Obesity, Class I, BMI 30-34.9 [E66.811] 12/18/2021 Strain of lumbar region [S39.012A] 12/07/2022 Leg length inequality [M21.70] 12/07/2022 Circadian rhythm sleep disorder, delayed sleep *12/10/2022 Encounter Status:Closed by NI CLANCY on 04/17/24 Normal [facility] Comprehensive metabolic 2000 panelon 04-10-2024 Albumin [Mass/Vol] 4.9 g/dL Normal 3.9-4.9 [facility] Comment on above: Order Comment: Speci men Type: BLOOD SPECIMEN Ordering Facility: [facility] Address: [address] [place] [address] Performed By: #### 5 5454-3 #### [facility] CLIA [id number] [address] [place] [address] [place] [address] [place] ALP [Catalytic activity/Vol] 82 U/L Normal 34-123 [facility] Comment on above: Order Comment: Speci men Type: BLOOD SPECIMEN Ordering Facility: [facility] Address: [address] [place] [address] Performed By: #### 5 5454-3 #### [facility] CLIA [id number] [address] [place], [place] [address] [place] ALT [Catalytic activity/Vol] 14 U/L Normal 7-38 [facility] Comment on above: Order Comment: Speci men Type: BLOOD SPECIMEN Ordering Facility: [facility] Address: [address] [place] [address] Performed By: #### 5 5454-3 #### [facility] CLIA [id number] [address] [place] [address] [place] Anion gap [Moles/Vol] 13 mmol/L Normal 8-15 [facility] Comment on above: Order Comment: Speci men Type: BLOOD SPECIMEN Ordering Facility: [facility] Address: [address] [place] [address] Performed By: #### 5 5454-3 #### [facility] CLIA [id number] [address] [place] [address] [place] AST [Catalytic activity/Vol] 13 U/L Normal 13-35 [facility] Comment on above: Order Comment: Speci men Type: BLOOD SPECIMEN Ordering Facility: [facility] Address: [address] [place] [address] Performed By: #### 5 5454-3 #### [facility] CLIA [id number] [address] [place] [address] [place] Bilirubin [Mass/Vol] 0.7 mg/dL Normal 0.2-1.[address] [facility] Comment on above: Order Comment: Speci men Type: BLOOD SPECIMEN Ordering Facility: [facility] Address: [address] [place] [address] Performed By: #### 5 5454-3 #### [facility] CLIA [id number] [address] [place] [address] [place] Calcium [Mass/Vol] 9.9 mg/dL Normal 8.5-10.2 [facility] Comment on above: Order Comment: Speci men Type: BLOOD SPECIMEN Ordering Facility: [facility] Address: [address] [place] [address] Performed By: #### 5 5454-3 #### [facility] CLIA [id number] [address] [place], [place] [address] [place] Chloride [Moles/Vol] 100 mmol/L Normal 98-[address] [facility] Comment on above: Order Comment: Speci men Type: BLOOD SPECIMEN Ordering Facility: [facility] Address: [address] [place] [address] Performed By: #### 5 5454-3 #### [facility] CLIA [id number] [address] [place] [address] [place] CO2 [Moles/Vol] 23 mmol/L Normal 22-30 [facility] Comment on above: Order Comment: Speci men Type: BLOOD SPECIMEN Ordering Facility: [facility] Address: [address] [place] [address] Performed By: #### 5 5454-3 #### [facility] CLIA [id number] [address] [place], [place] [address] [place] Creatinine [Mass/Vol] 0.94 mg/dL Normal 0.58-0.96 [facility] Comment on above: Order Comment: Speci men Type: BLOOD SPECIMEN Ordering Facility: [facility] Address: [address] [place] [address] Performed By: #### 5 5454-3 #### [facility] CLIA [id number] [address] [place], [place] [address] [place] Creatinine and Glomerular filtration rate.predicted panel (S/P/Bld) 89 mL/min/1.73m??? Normal >=60 [facility] Comment on above: Order Comment: Jese eller Type: BLOOD SPECIMEN Ordering Facility: [facility] Address: [address] [place] [address] Result Comment: Linda mated Glomerular Filtration Rate (eGFR) is calculated using the 2020 CKD-EPI creatinine equation. This equation utilizes serum creatinine, sex, and age as parameters. The creatinine assay has traceable calibration to isotope dilution-mass spectrometry. Refer to KDIGO guidelines for clinical interpretation. In patients with unstable renal function, e.g. those with acute kidney injury, the eGFR may not accurately reflect actual GFR. Performed By: #### 5 5454-3 #### [facility] CLIA [id number] [address] [place] [address] [place] Glucose [Mass/Vol] 96 mg/dL Normal 74-99 [facility] Comment on above: Order Comment: Jese eller Type: BLOOD SPECIMEN Ordering Facility: [facility] Address: [address] [place] [address] Result Comment: The [place] Diabetes Association (ADA) provides guidance for cutoff values for fasting glucose and random glucose. The ADA defines fasting as no caloric intake for at least 8 hours. Fasting plasma glucose results between 100 to 125 mg/dL indicate increased risk for diabetes (prediabetes). Fasting plasma glucose results greater than or equal to 126 mg/dL meet the criteria for diagnosis of diabetes. In the absence of unequivocal hyperglycemia, results should be confirmed by repeat testing. In a patient with classic symptoms of hyperglycemia or hyperglycemic crisis, random plasma glucose results greater than or equal to 200 mg/dL meet the criteria for diagnosis of diabetes. Reference: Standards of Medical Care in Diabetes 2016, [place] [employer] Association. Diabetes Care. 2016.39(Suppl 1). Performed By: #### 5 5454-3 #### [facility] CLIA [id number] [address] [place] [address] [place] Potassium [Moles/Vol] 3.8 mmol/L Normal 3.7-5.1 [facility] Comment on above: Order Comment: Jese eller Type: BLOOD SPECIMEN Ordering Facility: [facility] Address: [address] [place] [address] Performed By: #### 5 5454-3 #### [facility] CLIA [id number] [address] [place] [address] [place] Protein [Mass/Vol] 7.5 g/dL Normal 6.3-8.0 [facility] Comment on above: Order Comment: Speci men Type: BLOOD SPECIMEN Ordering Facility: [facility] Address: [address] [place] [address] Performed By: #### 5 5454-3 #### [facility] CLIA [id number] [address] [place] [address] [place] Sodium [Moles/Vol] 136 mmol/L Normal 136-144 [facility] Comment on above: Order Comment: Speci men Type: BLOOD SPECIMEN Ordering Facility: [facility] Address: [address] [place] [address] Performed By: #### 5 5454-3 #### [facility] CLIA [id number] [address] [place] [address] [place] Urea nitrogen [Mass/Vol] 12 mg/dL Normal 7-21 [facility] Comment on above: Order Comment: Speci men Type: BLOOD SPECIMEN Ordering Facility: [facility] Address: [address] [place] [address] Performed By: #### 5 5454-3 #### [facility] CLIA [id number] [address] [place], [place] [address] [place] Insulin SerPl-aCncon -23-2 024 Insulin Qn 19.7 u[IU]/mL Normal 3.0-25.0 [facility] Comment on above: Order Comment: Speci men Type: BLOOD SPECIMEN Ordering Facility: [facility] Address: [address] [place] [address] Performed By: #### 5 5454-3 #### [facility] CLIA [id number] [address] [place] [address] [place] TESTOSTERONE, FREE AND TOTAL , BY EQUILIBRIUM ULTRAFILTRATION MASS SPECTROMETRYon 04-10-2024 Testosterone [Mass/Vol] 54.6 ng/dL Normal 10.0-55.0 C [facility] Comment on above: Order Comment: Speci men Type: BLOOD SPECIMEN Ordering Facility: [facility] Address: [address] [place] [address] Performed By: #### 5 5454-3 #### [facility] [place] [id number] [address] [place] [address] [place] Testosterone Free [Mass/Vol] 1.56 ng/dL High 0.10-0.85 [facility] Comment on above: Order Comment: Speci men Type: BLOOD SPECIMEN Ordering Facility: [facility] Address: [address] [place] [address] Performed By: #### 5 5454-3 #### [facility] [place] [id number] [address] [place] [address] [place] [facility] Testosterone Free/Testosterone.total [Mass fraction] 2.86 % High 0.50-2.80 [facility] Comment on above: Order Comment: Speci men Type: BLOOD SPECIMEN Ordering Facility: [facility] Address: [address] [place] [address] Performed By: #### 5 5454-3 #### [facility] [place] [id number] [address] [place] [address] [place] CNOVon 04-07-2024 CNOV Office Visit (OBGYWM ) ESHA FRANCOIS ([id number]) 4 F Date Time Provider Department 04/07/24 3:20 PM RHIANNON OLSON OBGYWM During your visit today, we recorded the following information about you: Blood pressure Weight Last Period 110/64 93.9 kg 02/01/24 Rhiannon Olson MD 04/07/2024 4:25 PM Signed Esha Francois is a 23 year old female who presents for Concerns regarding painful/irregular menses. Longest she has gone without a cycle is 6 months. Pt reports typical time btwn cyccles is 2 months- pt reports usually bleeds for 5 days. Pt reports typically heavy for day 2-3. Pt reports uses pads for protection- reports on heavy day changes protection 5-6 times. Pt reports does not bleed through clothes. Pt reports clots are size of jeet. Pt reports pain medication works well- mefenamic acid when needed. Pt does have to shave her chin hair, has cystic acne. Reports she would like to get another us - she does feel she has PCOS and wants to know what to do. OB History T0 L0 SAB0 IAB0 Ectopic0 Multiple0 Live Births0 Certified Phlebotomist History LMP: 02/01/2024 (Within Days), Having periods Age at Menarche: Age at First : Age at Menopause: Certified Phlebotomist History Comments: Sexual Activity: Yes; No partner data on record Contraception: Condom, Not used PAST MEDICAL HISTORY Diagnosis Date Anxiety with depression 12/05/2020 Chronic bilateral low back pain without sciatica 07/16/2021 SOTO (generalized anxiety disorder) Overweight (BMI 25.0-29.9) 07/16/2021 Sleep disturbance 12/05/2020 No past surgical history on file. FAMILY HISTORY Problem Relation Age of Onset Narcolepsy Father Social History Tobacco Use Smoking status: Former Types: Cigarettes Smokeless tobacco: Never Tobacco comments: vape Vaping Use Vaping status: current everyday user Substances: Nicotine, Flavoring Devices: Pre-filled pod Substance Use Topics Alcohol use: Never Drug use: Never Current Outpatient Medications Medication Sig venlafaxine ER (EFFEXOR XR) 150 mg 24 hr capsule Take 1 capsule by mouth once daily. lamoTRIgine (LAMICTAL) 200 mg tablet take 1 tablet by mouth once daily Mefenamic Acid 250 mg cap Take 1 capsule by mouth every 6 hours as needed. medroxyPROGESTERone (PROVERA) 10 mg tablet Take 1 tablet by mouth once daily. Take for 10 days of until menses starts. (Patient not taking: Reported on 03/01/2024) No current facility-administered medications for this visit. Allergies As of Date: 04/07/2024 (No Known Allergies) Fully Assessed 04/07/2024 REVIEW OF SYSTEMS Abdomen: no pain : Allergies and current medication updated:Yes SENSITIVE EXAM: The sensitive examination was discussed with the Patient or Patient's Authorized Broadcasting Equipment Mechanic. As applicable, any other physician, advance practice provider, medical student, or other health professional student that will be observing or involved in the sensitive examination for educational or training purposes was discussed with the Patient or Authorized Broadcasting Equipment Mechanic. The Patient or Authorized Broadcasting Equipment Mechanic has agreed to proceed with the sensitive examination. (Sensitive examination includes inspection and/or palpation of the breasts, pelvis, prostate and anorectal regions). EXAM: BP 110/64 Wt 207 lb (93.9kg) LMP 02/01/2024 GENERAL: pleasant, female in no apparent distress HEENT: Normocephalic, atraumatic, and mucus membranes moist NECK: full range of motion DERMATOLOGY: Normal, without lesions, non-icteric, and hirsutism NEURO: alert and oriented x3,exam grossly non-focal EXTREMITIES: normal ASSESSMENT AND PLAN: Assessment AND Plan PCOS (polycystic ovarian syndrome) Orders: INSULIN ASSAY BLOOD; Future COMPREHENSIVE METABOLIC PANEL; Future TESTOSTERONE, FREE AND TOTAL, BY EQUILIBRIUM ULTRAFILTRATION MASS SPECTROMETRY; Future Drospirenone-Ethinyl Estradiol (JOVITA, 28,) 3-0.03 mg per tablet; Take 1 tablet by mouth once daily. Abnormal uterine bleeding (AUB) -reviewed ultrasound images with patient- PCOS by definition noted on ultrasound. Class 2 obesity with body mass index (BMI) of 39.0 to 39.9 in adult, unspecified obesity type, unspecified whether serious comorbidity present Orders: INSULIN ASSAY BLOOD; Future COMPREHENSIVE METABOLIC PANEL; Future TESTOSTERONE, FREE AND TOTAL, BY EQUILIBRIUM ULTRAFILTRATION MASS SPECTROMETRY; Future - once labs are returned will start patient on metformin- reviewed how to take with her. Ultimate goal 1000mg xr bid. Pt will send [email or web address] message after 1-2 months if tolerating 1000mg and then we will increase. Risks and SE reviewed. Discussed nutrition. Reivewed weight loss and PCOS. Reviewed senior living risks of PCOS. Medical Decision Making: Problems: Moderate: 2+ stable chronic illnesses Data: Unique test(s) ordered: 3+ Risk (more content not included)... Normal [facility] CNOVon 03-01-2024 CNOV Office Visit (UCWSTR ) ESHA FRANCOIS ([id number]) 4 F Date Time Provider Department 03/01/24 2:15 PM PLACIDO ALCANTAR [facility] During your visit today, we recorded the following information about you: Temperature Pulse Respiration Blood pressure 98 degrees 94/minute 16/minute 122/78 Weight 94.7 kg Placido Alcantar APRN.COMMUNICATION ANALYST 03/01/2024 2:27 PM Signed Subjective HPI HPI Esha Tasha Francois is a 23 year old female who presents today for CC of sore throat, cough, congestion. This started today. Has tried nothing for relief. Symptoms are worsened by nothing. Risk factors sick exposures at home. .Patient presents with: Sore Throat: nasal congestion, drainage and cough x today PAST MEDICAL HISTORY Diagnosis Date Anxiety with depression 12/05/2020 Chronic bilateral low back pain without sciatica 07/16/2021 SOTO (generalized anxiety disorder) Overweight (BMI 25.0-29.9) 07/16/2021 Sleep disturbance 12/05/2020 No past surgical history on file. ALLERGIES Patient has no known allergies. MEDICATIONS lamoTRIgine (LAMICTAL) 200 mg tablet take 1 tablet by mouth once daily venlafaxine ER (EFFEXOR XR) 150 mg 24 hr capsule Take 1 capsule by mouth once daily. Mefenamic Acid 250 mg cap Take 1 capsule by mouth every 6 hours as needed. norgestimate 0.25 mg-ethinyl estradiol 35 mcg (SPRINTEC) 0.25-35 mg-mcg per tablet Take 1 tablet by mouth once daily. medroxyPROGESTERone (PROVERA) 10 mg tablet Take 1 tablet by mouth once daily. Take for 10 days of until menses starts. (Patient not taking: Reported on 03/01/2024) FAMILY HISTORY Problem Relation Age of Onset Narcolepsy Father Social History Tobacco Use Smoking status: Former Types: Cigarettes Smokeless tobacco: Never Tobacco comments: vape Vaping Use Vaping status: current everyday user Substances: Nicotine, Flavoring Devices: Pre-filled pod Substance Use Topics Alcohol use: Never Drug use: Never Review of Systems Constitutional: Negative for fever. HENT: Positive for congestion and sore throat. Negative for ear pain and nosebleeds. Respiratory: Positive for cough and sputum production. Negative for shortness of breath and wheezing. Cardiovascular: Negative for chest pain. Musculoskeletal: Negative for neck pain. Skin: Negative for itching and rash. Objective Blood pressure 122/78, pulse 94, temperature 36.7 ?C (98 ?F), resp. rate 16, weight 94.7 kg (208 lb 12.4 oz), last menstrual period 10/15/2023, SpO2 98%. Physical Exam Constitutional: General: She is not in acute distress. Appearance: She is not toxic-appearing or diaphoretic. HENT: Head: Normocephalic and atraumatic. Nose: Nose normal. Mouth/Throat: Pharynx: Uvula midline. No pharyngeal swelling, oropharyngeal exudate, posterior oropharyngeal erythema or uvula swelling. Eyes: General: Lids are normal. No scleral icterus. Right eye: No discharge. Left eye: No discharge. Conjunctiva/sclera: Conjunctivae normal. Pupils: Pupils are equal, round, and reactive to light. Neck: Trachea: Trachea normal. Cardiovascular: Rate and Rhythm: Normal rate and regular rhythm. Heart sounds: Normal heart sounds. Pulmonary: Effort: Pulmonary effort is normal. Breath sounds: Normal breath sounds. Musculoskeletal: Cervical back: Normal range of motion and neck supple. Lymphadenopathy: Cervical: No cervical adenopathy. Right cervical: No superficial cervical adenopathy. Left cervical: No superficial cervical adenopathy. Skin: Findings: No rash. Neurological: Mental Status: She is alert and oriented to person, place, and time. ASSESSMENT/PLAN: 1. Sore throat - ICD9: 462, ICD10: J02.9 - suspect viral - Group A strep molecular testing negative - Discussed supportive care treatment with fluids, rest and analgesia. 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 #:[id number] predniSONE (DELTASONE) 20 mg tabletTake 2 tablets by mouth once daily for 5 days.Disp: 10 tabletRfl: 0 Prescriptions as of 03/01/2024 - predniSONE (DELTASONE) 20 mg tablet Take 2 tablets by mouth once daily for 5 days. - lamoTRIgine (LAMICTAL) 200 mg tablet take 1 tablet by mouth once daily - norgestimate 0.25 mg-ethinyl estradiol 35 mcg (SPRINTEC) 0.25-35 mg-mcg per tablet Take 1 tablet by mouth once daily. - medroxyPROGESTERone (PROVERA) 10 mg tablet Take 1 tablet by mouth once daily. Take for 10 days of until m (more content not included)... Normal [facility] STREP A MOLECULAR (POC)on Procedural Control Valid [facility] Strep A (POCT) Negative Negative [facility] CBC W/Diff, Automatedon 10-2 Absolute Lymph 2.73 X10 3/uL Normal 0.83-4.51 [facility] Comment on above: Performed By: #### L 100.0100, L500.4050, L700.6800 #### [facility] [address] [place], [address] Absolute Neut 4.0 X10 3/uL Normal 2.0-7.7 [facility] Comment on above: Performed By: #### L 100.0100, L500.4050, L700.6800 #### [facility] [address] [place], [address] Basophils/100 WBC (Bld) 0.5 % Normal 0-1 [facility] Comment on above: Performed By: #### L 100.0100, L500.4050, L700.6800 #### [facility] [address] [place], [address] Eosinophils/100 WBC (Bld) 1.6 % Normal 0-5 [facility] Comment on above: Performed By: #### L 100.0100, L500.4050, L700.6800 #### [facility] [address] [place], [address] Erythrocyte distribution width (RBC) [Ratio] 13.2 % Normal 11.6-14.6 [facility] Comment on above: Performed By: #### L 100.0100, L500.4050, L700.6800 #### [facility] [address] [place], [address] Hematocrit (Bld) [Volume fraction] 45.2 % Normal 37-47 [facility] Comment on above: Performed By: #### L 100.0100, L500.4050, L700.6800 #### [facility] [address] [place], [address] Hemoglobin (Bld) [Mass/Vol] 14.4 g/dL Normal 12.0-15.0 [facility] Comment on above: Performed By: #### L 100.0100, L500.4050, L700.6800 #### [facility] [address] [place], [address] IG% 0.300 Normal 0.0-0.9 [facility] Comment on above: Result Comment: IG% - Immature Granulocytes (promyelocytes, myelocytes and metamyelocytes) > 1% indicates that a LEFT SHIFT is Present. Performed By: #### L 100.0100, L500.4050, L700.6800 #### [facility] [address] [place], [address] Lymphocytes/100 WBC (Bld) 35.7 % Normal 19-41 [facility] Comment on above: Performed By: #### L 100.0100, L500.4050, L700.6800 #### [facility] [address] [place], [address] MCH (RBC) [Entitic mass] 27.0 pg Normal 27.0-32.0 [facility] Comment on above: Performed By: #### L 100.0100, L500.4050, L700.6800 #### [facility] [address] [place], [address] MCHC (RBC) [Mass/Vol] 31.9 g/dL Low 32-36 [facility] Comment on above: Performed By: #### L 100.0100, L500.4050, L700.6800 #### [facility] [address] [place], [address] MCV (RBC) [Entitic vol] 84.6 fL Normal 81-99 [facility] Comment on above: Performed By: #### L 100.0100, L500.4050, L700.6800 #### [facility] [address] [place], [address] Monocytes/100 WBC (Bld) 9.4 % Normal 0-10 [facility] Comment on above: Performed By: #### L 100.0100, L500.4050, L700.6800 #### [facility] [address] [place], [address] Neutrophils/100 WBC (Bld) 52.5 % Normal 47-70 [facility] Comment on above: Performed By: #### L 100.0100, L500.4050, L700.6800 #### [facility] [address] [place], [address] Nucleated RBC (Bld) [#/Vol] 0 10*3/uL Normal 0-5 [facility] Comment on above: Performed By: #### L 100.0100, L500.4050, L700.6800 #### [facility] [address] [place], [address] Platelet mean volume (Bld) [Entitic vol] 9.4 fL Normal 6.2-12.0 [facility] Comment on above: Performed By: #### L 100.0100, L500.4050, L700.6800 #### [facility] [address] [place], [address] Platelets (Bld) [#/Vol] 375 10*3/uL Normal 150-450 [facility] Comment on above: Performed By: #### L 100.0100, L500.4050, L700.6800 #### [facility] [address] [place], [address] RBC (Bld) [#/Vol] 5.34 10*6/uL Normal 4.2-5.4 [facility] Comment on above: Performed By: #### L 100.0100, L500.4050, L700.6800 #### [facility] [address] [place], [address] RDW SD 40.3 fl Normal 35.1-43.9 [facility] Comment on above: Performed By: #### L 100.0100, L500.4050, L700.6800 #### [facility] [address] [place], [address] WBC (Bld) [#/Vol] 7.7 10*3/uL Normal 4.4-11.0 [facility] Comment on above: Performed By: #### L 100.0100, L500.4050, L700.6800 #### [facility] [address] [place], [address] Comprehensive Metabolic Prof ilon 02-10-2024 Albumin [Mass/Vol] 3.8 g/dL Normal 3.2-5.0 [facility] Comment on above: Performed By: #### L 100.0100, L500.4050, L700.6800 #### [facility] [address] [place], [address] Albumin/Globulin [Mass ratio] 1.0 {ratio} Normal 0.9-2.4 [facility] Comment on above: Performed By: #### L 100.0100, L500.4050, L700.6800 #### [facility] [address] [place], [address] ALK P 78 U/L Normal 45-117 [facility] Comment on above: Performed By: #### L 100.0100, L500.4050, L700.6800 #### [facility] [address] [place], [address] ALT [Catalytic activity/Vol] 24 U/L Normal 13-56 [facility] Comment on above: Performed By: #### L 100.0100, L500.4050, L700.6800 #### [facility] [address] [place], [address] AST [Catalytic activity/Vol] 10 U/L Low 15-37 [facility] Comment on above: Performed By: #### L 100.0100, L500.4050, L700.6800 #### [facility] [address] [place], [address] Bilirubin [Mass/Vol] 0.40 mg/dL Normal 0.20-1.00 [facility] Comment on above: Result Comment: For patients on eltrombopag therapy, use of Dimension Elida TBIL is not recommended. Performed By: #### L 100.0100, L500.4050, L700.6800 #### [facility] [address] [place], [address] BUN/CRE 9.6 RATIO Low 10-20 [facility] Comment on above: Performed By: #### L 100.0100, L500.4050, L700.6800 #### [facility] [address] [place], [address] CA,Total 9.9 mg/dL Normal 8.5-10.1 [facility] Comment on above: Performed By: #### L 100.0100, L500.4050, L700.6800 #### [facility] [address] [place], [address] Chloride [Moles/Vol] 109 mmol/L High 98-107 [facility] Comment on above: Performed By: #### L 100.0100, L500.4050, L700.6800 #### [facility] [address] [place], [address] CO2 [Moles/Vol] 28.0 mmol/L Normal 21.0-32.0 [facility] Comment on above: Performed By: #### L 100.0100, L500.4050, L700.6800 #### [facility] [address] [place], [address] Creatinine [Mass/Vol] 0.94 mg/dL Normal 0.55-1.02 [facility] Comment on above: Result Comment: The validity of the calculated GFR GFRAA in patients over 70 years has not been determined. Clinical correlation is essential. Performed By: #### L 100.0100, L500.4050, L700.6800 #### [facility] [address] [place], [address] ECRCL 99.02 ml/min Normal [facility] Comment on above: Performed By: #### L 100.0100, L500.4050, L700.6800 #### [facility] [address] [place], [address] EST GFR - AA 97 mL/min Normal >60 [facility] Comment on above: Result Comment: Afri can [place] GFR Calc Performed By: #### L 100.0100, L500.4050, L700.6800 #### [facility] [address] [place], [address] GAP 3 Low 5-15 [facility] Comment on above: Performed By: #### L 100.0100, L500.4050, L700.6800 #### [facility] [address] [place], [address] GFR/1.73 sq M.predicted among non-blacks MDRD (S/P/Bld) [Vol rate/Area] 80 mL/min/{1.73_m2} Normal >60 [facility] Comment on above: Result Comment: Non- GFR Calc Performed By: #### L 100.0100, L500.4050, L700.6800 #### [facility] [address] [place], [address] Globulin (S) [Mass/Vol] 3.7 g/dL Normal 2.2-4.2 [facility] Comment on above: Performed By: #### L 100.0100, L500.4050, L700.6800 #### [facility] [address] [place], [address] Glucose [Mass/Vol] 81 mg/dL Normal 74-106 [facility] Comment on above: Performed By: #### L 100.0100, L500.4050, L700.6800 #### [facility] [address] [place], [address] Potassium [Moles/Vol] 3.9 mmol/L Normal 3.5-5.1 [facility] Comment on above: Performed By: #### L 100.0100, L500.4050, L700.6800 #### [facility] [address] [place], [address] Sodium [Moles/Vol] 140 mmol/L Normal 136-145 [facility] Comment on above: Performed By: #### L 100.0100, L500.4050, L700.6800 #### [facility] [address] [place], [address] T PROT 7.5 g/dL Normal 6.4-8.2 [facility] Comment on above: Performed By: #### L 100.0100, L500.4050, L700.6800 #### [facility] [address] [place], [address] Urea nitrogen [Mass/Vol] 9 mg/dL Normal 7-18 [facility] Comment on above: Performed By: #### L 100.0100, L500.4050, L700.6800 #### [facility] [address] [place], [address] Emergency Department Summary on 02-10-2024 Emergency Department Summary [facility] Medical Records Department [address] [place] [address] Emergency Department Summary 02/10/24 MR#: [id number] Acct: [id number] Name: ESHA FRANCOIS Rep #: [id number] : 2000 23 From: Bruce Law MD PCP: Care Physician,No Primary Status:REG ER Location: ED HPI HPI - GI History of Present Illness Chief Complaint: Abd Pain Informant: patient Narrative Narrative: 23-year-old female states she had not had a menstrual cycle for 3 months, her PIERCING ARTIST put her on progesterone, then when she stopped it she started having her period but instead of the usual 3 to 4 days last ever 8 days and the bleeding was very heavy with some clots and cramping. The cramping was fairly severe. She states the bleeding stopped 3 to 4 days ago, but the cramping persist although it is not as bad. She states she is here in the ER out of concern because the cramping has persisted beyond her bleeding which is unusual. She states early on in the process of all of that she had a positive home test but her PIERCING ARTIST told her that she was not . She denies any syncope or presyncope. She denies any nausea or vomiting. Normal bowel movements. No vaginal discharge just the bleeding, which is resolved. She denies any problems urinating. No systemic symptoms or fevers. PFSH PFSH Home Medications ???Medication ???Instructions ???Recorded ???Last Taken ???Type venlafaxine 150 mg 150 mg PO DAILY 06/09/21 Unknown History capsule,extended release 24 hr (Effexor XR) dicyclomine 10 mg capsule 20 mg (2 x 10 mg) PO TIDAC #20 05/19/22 Unknown Rx CAPSULES ondansetron 4 mg disintegrating 4 mg PO Q8H PRN PRN Nausea #10 tabs 05/19/22 Unknown Rx tablet lamotrigine 200 mg tablet 200 mg PO DAILY 06/15/23 Unknown History Allergy/AdvReac Type Severity Reaction Status Date / Time No Known Allergies Allergy Verified 02/10/24 13:56 Social History Smoking Status: Never smoker ROS ROS ED Constitutional Constitutional ED: Denies chills or fever(s) Eyes Eyes: Denies change in vision or diplopia ENT ENT ED: Denies rhinorrhea or sore throat Cardiovascular Cardiovascular: Denies chest pain or palpitations Respiratory/Chest Respiratory/Chest: Denies cough or dyspnea Gastrointestinal Gastrointestinal: Reports abdominal pain; Denies diarrhea, nausea or vomiting Genitourinary Genitourinary ED: Denies dysuria or hematuria Musculoskeletal Musculoskeletal: Denies back pain or neck pain Integumentary Denies abscess or rash Neurologic Neurologic: Denies headache(s), paresthesias or weakness Psychiatric Psychiatric: Denies anxiety or suicidal thoughts EXAM Physical Exam Const Vital Signs: 02/10/24 13:57 02/10/24 15:55 02/10/24 17:00 Temperature 97.5 F L Temperature Source Temporal Pulse Rate 90 108 H Respiratory Rate 18 18 Blood Pressure 120/78 117/74 122/82 H Blood Pressure Mean 92 88 95 Pulse Ox 100 96 Oxygen Delivery Method Room Air Room Air Room Air Positive well nourished and well developed General Appearance ED: well developed and NAD HEENT Reports moist mucous membranes normocephalic and atraumatic Eyes PERRL and EOMs intact bilaterally Neck full ROM and supple Resp normal respiratory effort and clear to auscultation bilaterally Cardio regular rate, regular rhythm and no murmurs GI non-distended GI Narrative: Mild suprapubic tenderness, no guarding or rebound no other areas of tenderness including both lower quadrants. Auscultation: normoactive bowel sounds Palpation: soft Back/Spine no CVA tenderness General Back: other FROM Extremity normal to inspection General Extremety ED: Negative for edema, pulses abnormal or tenderness General Extremity: Negative for edema or pulses abnormal Neuro oriented x3, CN's II-XII intact bilaterally and no sensory deficits noted Sensorium / Orientation: awake and alert Motor Exam: strength 5/5 throughout Skin no rashes or lesions noted and no wounds MDM MDM MDM Narrative Medical decision making narrative: Serum qualitative is negative. Her hemoglobin is 14.4, excellent. This is compared with 15 earlier in the year. Her vital signs are normal and she was well-appearing. Based on all of this I do not think she needs an emergent ultrasound. Waiting for urine to come back, in the meantime she is getting Toradol for her pain. This did help. Her labs are normal. I offered an ultrasound, she does not want to wait and is comfortable with following up as an outpatient. Hopefully the pain goes away on its own if it does not or gets significantly worse she is always welcome to return and we be happy to do an ultrasound Lab Data Attestation: I reviewed the giovanni (more content not included)... Normal [facility] ,Serum,hCG Quali.on 02-10-2024 HCG, SERUM QUAL Negative Normal [facility] Comment on above: Performed By: #### L 100.0100, L500.4050, L700.6800 ####[facility] [address] [place], [address] Urinalysis, Completeon 02-09 EPI,SQUAMOUS 0-5 SEEN Normal 5-10 [facility] Comment on above: Order Comment: ANA CTOR TO SPECIFY Performed By: #### L 400.0001 ####[facility] [address] [place], [address] BACTERIA 0 SEEN Normal None Seen [facility] Comment on above: Order Comment: ANA CTOR TO SPECIFY Performed By: #### L 400.0001 ####[facility] [address] [place], [address] Mucus Ql (Urine sed) 0 SEEN Normal [facility] Comment on above: Order Comment: ANA CTOR TO SPECIFY Performed By: #### L 400.0001 ####[facility] [address] [place], [address] RBC 0 SEEN Normal 0-5 [facility] Comment on above: Order Comment: ANA CTOR TO SPECIFY Performed By: #### L 400.0001 ####[facility] [address] [place], [address] WBC 0 SEEN Normal 0-5 [facility] Comment on above: Order Comment: ANA CTOR TO SPECIFY Performed By: #### L 400.0001 ####[facility] [address] [place], [address] CNOVon 01-20-2024 CNOV Office Visit (OBGYWM ) ESHA FRANCOIS ([id number]) 4 F Date Time Provider Department 01/20/24 11:00 AM LAURA GARCIA During your visit today, we recorded the following information about you: Blood pressure Weight Last Period 108/78 92.5 kg 10/15/23 Laura Garcia MD 01/20/2024 12:34 PM Signed Esha Francois is a 23 year old female who presents for problem visit. HPI: Patient reports irregular menses. Menarche was age 13. Since age 15 she has gone up to 6 months without having menses. Her most recent menses was in September. OB History T0 L0 SAB0 IAB0 Ectopic0 Multiple0 Live Births0 Certified Phlebotomist History LMP: 02/22/2023 (Exact Date), Having periods Age at Menarche: Age at First : Age at Menopause: Certified Phlebotomist History Comments: Sexual Activity: Yes; No partner [...] Never Tobacco comments: vape Vaping Use Vaping status: current everyday user Substances: Nicotine, Flavoring Devices: Pre-filled pod Substance Use Topics Alcohol use: Never Drug use: Never Current Outpatient Medications Medication Sig lamoTRIgine (LAMICTAL) 200 mg tablet Take 1 tablet by mouth once daily. venlafaxine ER (EFFEXOR XR) 150 mg 24 hr capsule Take 1 capsule by mouth once daily. medroxyPROGESTERone (PROVERA) 10 mg tablet Take 1 tablet by mouth once daily. Etonogestrel-Ethinyl Estradiol (NUVARING) 0.12-0.015 mg/24 hr vaginal ring Use 1 Each vaginally as directed. Mefenamic Acid 250 mg cap Take 1 capsule by mouth every 6 hours as needed. No current facility-administered medications for this visit. Allergies As of Date: 01/20/2024 (No Known Allergies) Fully Assessed 04/16/2023 Allergies and current medication updated:Yes SENSITIVE EXAM: Not performed EXAM: LMP 02/22/2023 GENERAL: pleasant, female in no apparent distress ASSESSMENT AND PLAN: 23yo female with oligomenorrhea Reviewed labs and US from 2/24. There is no evidence of PCOS. Discussed R/B/A of management options. Patient wishes to proceed with ocps. Reviewed interaction with lamictal and patient is aware. Will induce menses with provera. All questions answered AND patient agrees with plan. Medical Decision Making: Problems: Moderate: New problem with uncertain prognosis Data: Unique test result(s) reviewed: 3+ Risk: Moderate: Drug management Medical Decision Making Level: 4 - Moderate Laura Garcia MD Allergies As of Date: 01/20/2024 (No Known Allergies) Date Reviewed: 01/20/2024 Reviewed by: Laura Garcia MD - Fully Assessed Reason for Visit: Discussion [813] Cmt: Infertility and pcos Primary Visit Diagnosis:Primary oligomenorrhea [N91.3] Order(s):UA DIP,URINE HCG (POC) [6983270] Order #: [id number]. #:[id number] norgestimate 0.25 mg-ethinyl estradiol 35 mcg (SPRINTEC) 0.25-35 mg-mcg per tabletTake 1 tablet by mouth once daily.Disp: 28 tabletRfl: 14 medroxyPROGESTERone (PROVERA) 10 mg tabletTake 1 tablet by mouth once daily. Take for 10 days of until menses starts.Disp: 10 tabletRfl: 0 Prescriptions as of 01/20/2024 - norgestimate 0.25 mg-ethinyl estradiol 35 mcg (SPRINTEC) 0.25-35 mg-mcg per tablet Take 1 tablet by mouth once daily. - medroxyPROGESTERone (PROVERA) 10 mg tablet Take 1 tablet by mouth once daily. Take for 10 days of until menses starts. - lamoTRIgine (LAMICTAL) 200 mg tablet Take 1 tablet by mouth once daily. - venlafaxine ER (EFFEXOR XR) 150 mg 24 hr capsule Take 1 capsule by mouth once daily. - Mefenamic Acid 250 mg cap Take 1 capsule by mouth every 6 hours as needed. Problem List As Of Date 01/20/2024 Noted Resolved Anxiety with depression [F41.8] 12/05/2020 Sleep disturbance [G47.9] 12/05/2020 SOTO (generalized anxiety disorder) [F41.1] 04/07/2021 Hypersomnolence [G47.10] 05/15/2021 Overweight (BMI 25.0-29.9) [E66.3] 07/16/2021 Chronic bilateral low back pain without sciatic*07/16/2021 Obesity, Class I, BMI 30-34.9 [E66.811] 12/18/2021 Strain of lumbar region [S39.012A] 12/07/2022 Leg length inequality [M21.70] 12/07/2022 Circadian rhythm sleep disorder, delayed sleep *12/10/2022 Prescriptions ordered this encounter Disp Refills Start End NORGESTIMATE 0.25 MG-ETHINYL ESTRADI* 28 t* 14 01/20/2024 Route: ORAL Sig: Take 1 tablet by mouth once daily. MEDROXYPROGESTERONE 10 MG TABLET 10 t* 0 01/20/2024 Route: ORAL Sig: Take 1 tablet by mouth once daily. Take for 10 (more content not included)... Normal [facility] UA DIP,URINE HCG (POC)on Beta HCG ( test) Ql (U) Negative Negative [facility] Comment on above: Location:[facility], [address], [place], [address] Marine Engineer (POCT) Internal QC [facility] Location:[facility], [address], [place], [address] [facility] POINT OF CARE [facility] Quantiferon TB-Gold+on 10-15 QFT MITOGEN HERSON > 10.00 Normal . [facility] Comment on above: Performed By: #### L 3400.8000 ####[facility] [address] [place], [address] QFT NIL VALUE 0.04 IU/mL Normal . [facility] Comment on above: Performed By: #### L 3400.8000 ####[facility] [address] [place], [address] QFT TB GOLD+ Comment Normal . [facility] Comment on above: Result Comment: Dominik tiFERON-TB Gold Plus is a qualitative indirect test for M tuberculosis infection (including disease) and is intended for use in conjunction with risk assessment, radiography, and other medical and diagnostic evaluations. The QuantiFERON-TB Gold Plus result is determined by subtracting the Nil value from either TB antigen (Ag) value. The Mitogen tube serves as a control for the test. Performed By: #### L 3400.8000 ####[facility] [address] [place], [place], [id number] QFT TB POS CRIT Negative Normal Negative [facility] Comment on above: Result Comment: No r esponse to M tuberculosis antigens detected. Infection with M tuberculosis is unlikely, but high risk individuals should be considered for additional testing (ATS/IDSA/CDC Clinical Practice Guidelines, 2017). The reference range is an Antigen minus Nil result of <0.35 IU/mL. The specimen received for QuantiFERON testing was incubated by the ordering institution. Specific procedures outlined in our Directory of Services and in the package insert for the QuantiFERON Gold (In Tube) test must be followed to enable for proper stimulation of cells for the production of interferon gamma. Chemiluminescence immunoassay methodology Performed at: [employer] [id number] [employer] Supervisor: Mike Reynoso PhD, Phone: [phone] Performed By: #### L 3400.8000 ####[facility] [address] [place], [place], [id number] QFT TB1+ AG HERSON 0.03 IU/mL Normal . [facility] Comment on above: Performed By: #### L 3400.8000 ####[facility] [address] [place], [place], [id number] QFT TB2+ AG HERSON 0.02 IU/mL Normal . [facility] Comment on above: Performed By: #### L 3400.8000 ####[facility] [address] [place], [place], [id number] Office Visit Reporton 2023 Office Visit Report [facility] [address] [place] [address] OFFICE VISIT Date of Service: 10/14/23 MR#: [id number] Acct: [id number] Patient: ESHA FRANCOIS Rep #: [id number] : 2000 Provider: MARIXA Yeboah Age/Sex: 23/F Location: [facility] Status: Signed Intake Vital Signs 06/15/23 15:17 Height 5 ft 1 in Intake Visit Reasons: QUANTIFERON, FIT TEST/ [place] Allergies No Known Allergies Allergy (Verified 06/15/23 15:18) Office Procedures [facility] Billing Sheet Testing Respirator Clearance (form only): Yes Respirator Fit Testing: Yes Occquant-Quantiferon: Yes 10/21/23923 Date Chay CALVIN Cosigner Signature: Date (if applicable) CC: Normal [facility] Urgent Care Visit Reporton 0 10-14-2023 Urgent Care Visit Report [facility] [address], [address] [place] [address] OFFICE VISIT Date of Service: 10/14/23 MR#: [id number] Acct: [id number] Name: ESHA FRANCOIS Rep #: [id number] : 2000 Provider: MARIXA Yeboah Age/Sex: 23/F Location: [facility] Status: Signed Intake Vital Signs 06/15/23 15:17 Height 5 ft 1 in Intake Visit Reasons: PE NON DOT PHYSICAL/ [place] Allergies No Known Allergies Allergy (Verified 06/15/23 15:18) PFSH Social History Smoking Status: Never smoker HPI HPI Details: ESHA FRANCOIS, is a 23 F who presents to the office today for preemployment physical. Please see corresponding scanned documents with today's date. Office Procedures Physical Exam Coding PE Coding Pre-employment PE: Yes Coding Level of Care Code No Charge Diagnoses Encounter for pre-employment health screening examination Z02.1 Assessment and Plan Assessment and Plan (1) Encounter for pre-employment health screening examination: Status: Acute Orders: Orders Quantiferon TB-Gold+ Today Z02.1 - Encounter for pre-employment examination 10/14/23 1149 Date Chay Brock Signature: Date (if applicable) CC: Normal [facility] Absolute lymphocyte countOrd ered By: Allen Lopes on 06-15-2023 Lymphocytes Auto (Unsp spec) [#/Vol] 0.87 10*3/uL 0.83-4.51 [facility] Automated lymphocyte count a s percentage of total leukocytesOrdered By: Allen Lopes on 06-15-2023 Lymphocytes/100 WBC Auto (Unsp spec) 9.4 % 19-41 [facility] Basophil percentageOrdered B y: Allen Lopes on 06-15-2023 Basophil percentage 0 SEEN /hpf 0-5 [facility] Basophils/100 WBC (Bld) 0.4 % 0-1 [facility] Bilirubin [Mass/Vol] 0.90 mg/dL 0.20-1.00 [facility] Comment on above: For patients on eltr ombopag therapy, use of Dimension Elida TBIL is not recommended. Chloride [Moles/Vol] 113 mmol/L 98-107 [facility] Eosinophils/100 WBC (Bld) 0.5 % 0-5 [facility] Glucose [Mass/Vol] 114 mg/dL 74-106 [facility] Comment on above: Fasting Glucose resu lt from 100 to 125 mg/dL suggests IMPAIRED HOMEOSTASIS per A.D.A. criteria. Hemoglobin (Bld) [Mass/Vol] 15.0 g/dL 12.0-15.0 [facility] Monocytes/100 WBC (Bld) 5.9 % 0-10 [facility] Neutrophils (Bld) [#/Vol] 7.7 10*3/uL 2.0-7.7 [facility] Neutrophils/100 WBC (Bld) 83.6 % 47-70 [facility] Potassium [Moles/Vol] 3.9 mmol/L 3.5-5.1 [facility] Protein [Mass/Vol] 7.6 g/dL 6.4-8.2 [facility] Sodium [Moles/Vol] 140 mmol/L 136-145 [facility] WBC (Bld) [#/Vol] 9.3 10*3/uL 4.4-11.0 [facility] Bilirubin Test strip Ql (U)O rdered By: Allen Lopes on 06-15-2023 Bilirubin Ql (U) Negative Negative [facility] Determination of erythrocyte mean corpuscular volume (MCV)Ordered By: Allen Lopes on 06-15-2023 MCV (RBC) [Entitic vol] 85.1 fL 81-99 [facility] Erythrocyte distribution wid th ratioOrdered By: Allen Lopes on 06-15-2023 Erythrocyte distribution width (RBC) [Ratio] 12.6 % 11.6-14.6 [facility] Erythrocyte distribution wid th standard deviationOrdered By: Allen Lopes on 06-15-2023 Erythrocyte distribution width (RBC) [Entitic vol] 38.8 fL 35.1-43.9 [facility] Hematocrit Auto (Bld) [Volum e fraction]Ordered By: Allen Lopes on 06-15-2023 Hematocrit (Bld) [Volume fraction] 46.8 % 37-47 [facility] Immature granulocytes/100 WB C Auto (Bld)Ordered By: Allen Lopes on 06-15-2023 Immature granulocytes/100 WBC (Bld) 0.200 % 0.0-0.9 [facility] Comment on above: IG% - Immature Granu locytes (promyelocytes, myelocytes and metamyelocytes) > 1% indicates that a LEFT SHIFT is Present. Ketones Test strip Ql (U)Ord ered By: Allen Lopes on 06-15-2023 Ketones Ql (U) 5 mg/dl Negative [facility] Laboratory - Chemistry and C hemistry - challengeOrdered By: Allen Lopes on 06-15-2023 Albumin/Globulin [Mass ratio] 1.1 {ratio} 0.9-2.4 [facility] ALP [Catalytic activity/Vol] 92 U/L 45-117 [facility] ALT [Catalytic activity/Vol] 21 U/L 13-56 [facility] CO2 [Moles/Vol] 22.0 mmol/L 21.0-32.0 [facility] Globulin (S) [Mass/Vol] 3.7 g/dL 2.2-4.2 [facility] Urea nitrogen/Creatinine [Mass ratio] 15.6 mg/mg 10-20 [facility] - Hematology and Cell countsOrdered By: Allen Lopes on 06-15-2023 MCH (RBC) [Entitic mass] 27.3 pg 27.0-32.0 [facility] MCHC (RBC) [Mass/Vol] 32.1 g/dL 32-36 [facility] Nucleated RBC/100 WBC (Bld) [Ratio] 0 % 0-5 [facility] Platelet mean volume (Bld) [Entitic vol] 9.3 fL 6.2-12.0 [facility] Platelets (Bld) [#/Vol] 403 10*3/uL 150-450 [facility] Mucus LM Ql (Urine sed)Order ed By: Allen Lopes on 06-15-2023 Mucus Ql (Urine sed) 0 SEEN /hpf [facility] Nitrite Test strip Ql (U)Ord ered By: Allen Lopes on 06-15-2023 Nitrite Ql (U) Negative Negative [facility] No Panel InformationOrdered By: Allen Lopes on 06-15-2023 Estimated Creatinine Clearance Calc 100.39 ml/min [facility] Estimated GFR (MDRD) Amer 102 mL/min >60 [facility] Comment on above: GFR Calc Estimated GFR (MDRD) Non-Af Amer 85 mL/min >60 [facility] Comment on above: Non- GFR Calc Urine RBC 0-5 SEEN /hpf 0-5 [facility] Protein Test strip Ql (U)Ord ered By: Allen Lopes on 06-15-2023 Protein Ql (U) 100 mg/dl Negative [facility] RBC Auto (Bld) [#/Vol]Ordere d By: Allen Lopes on 06-15-2023 RBC (Bld) [#/Vol] 5.50 10*6/uL 4.2-5.4 [facility] Serum or plasma calcium darren urement (mass/volume)Ordered By: Allen Lopes on 06-15-2023 Calcium [Mass/Vol] 9.4 mg/dL 8.5-10.1 [facility] Serum or plasma choriogonado tropin detectionOrdered By: Allen Lopes on 06-15-2023 HCG ( test) Ql Negative [facility] Serum or plasma creatinine m easurement (mass/volume)Ordered By: Allen Lopes on 06-15-2023 Creatinine [Mass/Vol] 0.90 mg/dL 0.55-1.02 [facility] Comment on above: The validity of the calculated GFR & GFRAA in patients over 70 years has not been determined. Clinical correlation is essential. Serum or plasma urea nitroge n measurement (mass/volume)Ordered By: Allen Lopes on 06-15-2023 Urea nitrogen [Mass/Vol] 14 mg/dL 7-18 [facility] Squamous epithelial cells de tection in urine sediment by light microscopyOrdered By: Allen Lopes on 06-15-2023 Epithelial cells.squamous LM Ql (Urine sed) 0-5 SEEN /hpf 5-10 [facility] Thin prep Papanicolaou smear with manual screeningOrdered By: Allen Lopes on 06-15-2023 Thin prep Papanicolaou smear with manual screening 3.9 g/dL 3.2-5.0 [facility] Thin prep Papanicolaou smear with manual screening 11 U/L 15-37 [facility] Thin prep Papanicolaou smear with manual screening 5 5-15 [facility] Urine blood detectionOrdered By: Allen Lopes on 06-15-2023 RBC Ql (U) 250 /ul Negative [facility] Urine clarityOrdered By: Darshan Lopes on 06-15-2023 Clarity (U) Sl. Cloudy Clear [facility] Urine color determinationOrd ered By: Allen Lopes on 06-15-2023 Color (U) Yellow Yellow [facility] Urine glucose detectionOrder ed By: Allen Lopes on 06-15-2023 Glucose Ql (U) Normal mg/dl Normal [facility] Urine leukocyte esterase det ection by dipstickOrdered By: Allen Lopes on 06-15-2023 Leukocyte esterase Test strip Ql (U) 25 /ul Negative [facility] Urine pHOrdered By: Allen cannon on 06-15-2023 pH (U) 7.0 [pH] 5.0 - 8.0 [facility] Urine sediment bacteria coun t by microscopy (number/high power field)Ordered By: Allen Lopes on 06-15-2023 Bacteria LM.HPF (Urine sed) [#/Area] RARE /hpf None Seen [facility] Urine specific gravity measu rementOrdered By: Allen Lopes on 06-15-2023 Specific gravity (U) [Rel density] 1.010 1.002-1.030 [facility] Urine urobilinogen measureme ntOrdered By: Allen Lopes on 06-15-2023 Urobilinogen Ql (U) 1 mg/dl Normal [facility] [place] Pelvis transvaginalon [facility] HCG QUAL UR B/Oon 05-20-2023 status Negative neg - pos [facility] Quality Check Yes [facility] STREP A MOLECULAR (POC)on Procedural Control Valid [facility] Strep A (POCT) Negative Negative [facility] Absolute lymphocyte countOrd ered By: Reece Akers on 01-12-2023 Lymphocytes Auto (Unsp spec) [#/Vol] 3.05 10*3/uL 0.83-4.51 [facility] Basophil percentageOrdered B y: Reece Akers on 01-12-2023 Basophils/100 WBC (Bld) 0.5 % 0-1 [facility] Chloride [Moles/Vol] 106 mmol/L 98-[address] [facility] Eosinophils/100 WBC (Bld) 0.8 % 0-5 [facility] Glucose [Mass/Vol] 93 mg/dL 74-106 [facility] Neutrophils (Bld) [#/Vol] 6.9 10*3/uL 2.0-7.7 [facility] Neutrophils/100 WBC (Bld) 62.5 % 47-70 [facility] Potassium [Moles/Vol] 3.9 mmol/L 3.5-5.1 [facility] Sodium [Moles/Vol] 138 mmol/L 136-145 [facility] WBC (Bld) [#/Vol] 11.0 10*3/uL 4.4-11.0 [facility] Beta hCG serum qualOrdered B y: Reece Akers on 01-12-2023 Beta HCG ( test) Ql Negative [facility] Blood erythrocytes count (nu mber/volume)Ordered By: Reece Akers on 01-12-2023 RBC (Bld) [#/Vol] 5.01 10*6/uL 4.2-5.4 [facility] Blood hemoglobin measurement (mass/volume)Ordered By: Reece Akers on 01-12-2023 Hemoglobin (Bld) [Mass/Vol] 13.8 g/dL 12.0-15.0 [facility] Blood lymphocytes/100 leukoc ytesOrdered By: Reece Akers on 01-12-2023 Lymphocytes/100 WBC (Bld) 27.8 % 19-41 [facility] Blood monocytes/100 leukocyt esOrdered By: Reece Akers on 01-12-2023 Monocytes/100 WBC (Bld) 7.9 % 0-10 [facility] Blood platelet mean volumeOr dered By: Reece Akers on 01-12-2023 Platelet mean volume (Bld) [Entitic vol] 9.4 fL 6.2-12.0 [facility] Determination of erythrocyte mean corpuscular volume (MCV)Ordered By: Reece Akers on 01-12-2023 MCV (RBC) [Entitic vol] 87.0 fL 81-99 [facility] Hematocrit Auto (Bld) [Volum e fraction]Ordered By: Reece Akers on 01-12-2023 Hematocrit (Bld) [Volume fraction] 43.6 % 37-47 [facility] - Chemistry and C hemistry - challengeOrdered By: Reece Akers on 01-12-2023 CO2 [Moles/Vol] 26.0 mmol/L 21.0-32.0 [facility] Magnesium [Mass/Vol] 2.3 mg/dL 1.6-2.6 [facility] Urea nitrogen/Creatinine [Mass ratio] 13.7 mg/mg 10-20 [facility] - Hematology and Cell countsOrdered By: Reece Akers on 01-12-2023 Erythrocyte distribution width (RBC) [Entitic vol] 39.2 fL 35.1-43.9 [facility] Erythrocyte distribution width (RBC) [Ratio] 12.3 % 11.6-14.6 [facility] Immature granulocytes/100 WBC (Bld) 0.500 % 0.0-0.9 [facility] Comment on above: IG% - Immature Granu locytes (promyelocytes, myelocytes and metamyelocytes) > 1% indicates that a LEFT SHIFT is Present. MCH (RBC) [Entitic mass] 27.5 pg 27.0-32.0 [facility] Nucleated RBC/100 WBC (Bld) [Ratio] 0 % 0-5 [facility] MCHC Auto (RBC) [Mass/Vol]Or dered By: Reece Akers on 01-12-2023 MCHC (RBC) [Mass/Vol] 31.7 g/dL 32-36 [facility] No Panel InformationOrdered By: Reece Akers on 01-12-2023 Estimated Creatinine Clearance Calc 76.95 ml/min [facility] Estimated GFR (MDRD) Amer 106 mL/min >60 [facility] Comment on above: GFR Calc Estimated GFR (MDRD) Non-Af Amer 87 mL/min >60 [facility] Comment on above: Non- GFR Calc Platelets bldOrdered By: Chris Akers on 01-12-2023 Platelets (Bld) [#/Vol] 331 10*3/uL 150-450 [facility] Serum or plasma calcium darren urement (mass/volume)Ordered By: Reece Akers on 01-12-2023 Calcium [Mass/Vol] 8.9 mg/dL 8.5-10.1 [facility] Serum or plasma creatinine m easurement (mass/volume)Ordered By: Reece Akers on 01-12-2023 Creatinine [Mass/Vol] 0.88 mg/dL 0.55-1.02 [facility] Comment on above: The validity of the calculated GFR & GFRAA in patients over 70 years has not been determined. Clinical correlation is essential. Serum or plasma urea nitroge n measurement (mass/volume)Ordered By: Reece Akers on 01-12-2023 Urea nitrogen [Mass/Vol] 12 mg/dL 7-18 [facility] Thin prep Papanicolaou smear with manual screeningOrdered By: Reece Akers on 01-12-2023 Thin prep Papanicolaou smear with manual screening 6 5-15 [facility] 25(OH)D3 SerPl-mCncon 2022 25-hydroxyvitamin D3 [Mass/Vol] 70.9 ng/mL Normal 31.0-80.0 [facility] Comment on above: Order Comment: Specjustin eller Type: BLOOD SPECIMEN Ordering Facility: [facility] Address: [address] [address] Result Comment: Clas sification of 25 [place] Vitamin D status: Deficiency/Insufficiency: < or = 30 ng/ml. Sufficiency/Optimal Levels: 31-80 ng/mL Toxicity: > 100 ng/mL. Test performed by chemiluminescent immunoassay. Performed By: #### 1 989-3 #### [facility] CLIA [id number] [address] [place] [address] [place] CBC W Auto Differential pane l (Bld)on 08-17-2022 Basophils (Bld) [#/Vol] 0.05 10*3/uL Normal <0.11 [facility] Comment on above: Order Comment: Jese eller Type: BLOOD SPECIMEN Ordering Facility: [facility] Address: [address] [place] [address] Performed By: #### 5 7021-8 #### [facility] CLIA [id number] [address] [place] [address] [place] Basophils/100 WBC (Bld) 0.6 % Normal [facility] Comment on above: Order Comment: Jese eller Type: BLOOD SPECIMEN Ordering Facility: [facility] Address: [address] [address] Performed By: #### 5 7021-8 #### [facility] CLIA [id number] [address] [place] [address] [place] Differential cell count method Nom (Bld) Auto Normal [facility] Comment on above: Order Comment: Speci men Type: BLOOD SPECIMEN Ordering Facility: [facility] Address: [address] [address] Performed By: #### 5 7021-8 #### [facility] CLIA [id number] [address] [place] [address] [place] Eosinophils (Bld) [#/Vol] 0.06 10*3/uL Normal <0.46 [facility] Comment on above: Order Comment: Speci men Type: BLOOD SPECIMEN Ordering Facility: [facility] Address: [address] [address] Performed By: #### 5 7021-8 #### [facility] CLIA [id number] [address] [place] [address] [place] Eosinophils/100 WBC (Bld) 0.7 % Normal [facility] Comment on above: Order Comment: Speci men Type: BLOOD SPECIMEN Ordering Facility: [facility] Address: [address] [address] Performed By: #### 5 7021-8 #### [facility] CLIA [id number] [address] [place] [address] [place] Erythrocyte distribution width (RBC) [Ratio] 12.4 % Normal 11.5-15.0 [facility] Comment on above: Order Comment: Speci men Type: BLOOD SPECIMEN Ordering Facility: [facility] Address: [address] [address] Performed By: #### 5 7021-8 #### [facility] CLIA [id number] [address] [place] [address] [place] Hematocrit (Bld) [Volume fraction] 44.5 % Normal 36.0-46.0 [facility] Comment on above: Order Comment: Speci men Type: BLOOD SPECIMEN Ordering Facility: [facility] Address: [address] [address] Performed By: #### 5 7021-8 #### [facility] CLIA [id number] [address] [place] [address] [place] Hemoglobin (Bld) [Mass/Vol] 14.7 g/dL Normal 11.5-15.5 [facility] Comment on above: Order Comment: Speci men Type: BLOOD SPECIMEN Ordering Facility: [facility] Address: [address] [place] [address] Performed By: #### 5 7021-8 #### [facility] CLIA [id number] [address] [place] [address] [place] Immature granulocytes (Bld) [#/Vol] 10*3/uL Normal <0.10 [facility] Comment on above: Order Comment: Speci men Type: BLOOD SPECIMEN Ordering Facility: [facility] Address: [address] [place] [address] Performed By: #### 5 7021-8 #### [facility] CLIA [id number] [address] [place] [address] [place] Immature granulocytes/100 WBC (Bld) 0.2 % Normal [facility] Comment on above: Order Comment: Speci men Type: BLOOD SPECIMEN Ordering Facility: [facility] Address: [address] [place] [address] Performed By: #### 5 7021-8 #### [facility] CLIA [id number] [address] [place] [address] [place] Lymphocytes (Bld) [#/Vol] 2.70 10*3/uL Normal 1.00-4.00 [facility] Comment on above: Order Comment: Speci men Type: BLOOD SPECIMEN Ordering Facility: [facility] Address: [address] [address] Performed By: #### 5 7021-8 #### [facility] CLIA [id number] [address] [place] [address] [place] Lymphocytes/100 WBC (Bld) 31.1 % Normal [facility] Comment on above: Order Comment: Speci men Type: BLOOD SPECIMEN Ordering Facility: [facility] Address: [address] [place] [address] Performed By: #### 5 7021-8 #### [facility] CLIA [id number] [address] [place] [address] [place] MCH (RBC) [Entitic mass] 28.6 pg Normal 26.0-34.0 [facility] Comment on above: Order Comment: Speci men Type: BLOOD SPECIMEN Ordering Facility: [facility] Address: [address] [place] [address] Performed By: #### 5 7021-8 #### [facility] CLIA [id number] [address] [place] [address] [place] MCHC (RBC) [Mass/Vol] 33.0 g/dL Normal 30.5-36.0 [facility] Comment on above: Order Comment: Speci men Type: BLOOD SPECIMEN Ordering Facility: [facility] Address: [address] [place] [address] Performed By: #### 5 7021-8 #### [facility] CLIA [id number] [address] [place] [address] [place] MCV (RBC) [Entitic vol] 86.6 fL Normal 80.0-100.0 [facility] Comment on above: Order Comment: Speci men Type: BLOOD SPECIMEN Ordering Facility: [facility] Address: [address] [place] [address] Performed By: #### 5 7021-8 #### [facility] CLIA [id number] [address] [place] [address] [place] Monocytes (Bld) [#/Vol] 0.86 10*3/uL Normal <0.87 [facility] Comment on above: Order Comment: Speci men Type: BLOOD SPECIMEN Ordering Facility: [facility] Address: [address] [place] [address] Performed By: #### 5 7021-8 #### [facility] CLIA [id number] [address] [place] [address] [place] Monocytes/100 WBC (Bld) 9.9 % Normal [facility] Comment on above: Order Comment: Speci men Type: BLOOD SPECIMEN Ordering Facility: [facility] Address: [address] [address] Performed By: #### 5 7021-8 #### [facility] CLIA [id number] [address] [place] [address] [place] Neutrophils (Bld) [#/Vol] 4.98 10*3/uL Normal 1.45-7.50 [facility] Comment on above: Order Comment: Speci men Type: BLOOD SPECIMEN Ordering Facility: [facility] Address: [address] [address] Performed By: #### 5 7021-8 #### [facility] CLIA [id number] [address] [place] [address] [place] Neutrophils/100 WBC (Bld) 57.5 % Normal [facility] Comment on above: Order Comment: Speci men Type: BLOOD SPECIMEN Ordering Facility: [facility] Address: [address] [address] Performed By: #### 5 7021-8 #### [facility] CLIA [id number] [address] [place] [address] [place] Nucleated RBC (Bld) [#/Vol] 10*3/uL Normal <0.01 [facility] Comment on above: Order Comment: Speci men Type: BLOOD SPECIMEN Ordering Facility: [facility] Address: [address] [place] [address] Performed By: #### 5 7021-8 #### [facility] CLIA [id number] [address] [place] [address] [place] Nucleated RBC/100 WBC (Bld) [Ratio] 0.0 /100 WBC Normal [facility] Comment on above: Order Comment: Speci men Type: BLOOD SPECIMEN Ordering Facility: [facility] Address: [address] [place] [address] Performed By: #### 5 7021-8 #### [facility] CLIA [id number] [address] [place] [address] [place] Platelet mean volume (Bld) [Entitic vol] 10.2 fL Normal 9.0-12.7 [facility] Comment on above: Order Comment: Speci men Type: BLOOD SPECIMEN Ordering Facility: [facility] Address: [address] [address] Performed By: #### 5 7021-8 #### [facility] CLIA [id number] [address] [place] [address] [place] Platelets (Bld) [#/Vol] 330 10*3/uL Normal 150-400 [facility] Comment on above: Order Comment: Speci men Type: BLOOD SPECIMEN Ordering Facility: [facility] Address: [address] [address] Performed By: #### 5 7021-8 #### [facility] IA [id number] [address] [place] [address] [place] RBC (Bld) [#/Vol] 5.14 10*6/uL Normal 3.90-5.20 [facility] Comment on above: Order Comment: Speci men Type: BLOOD SPECIMEN Ordering Facility: [facility] Address: [address] [address] Performed By: #### 5 7021-8 #### [facility] IA [id number] [address] [place] [address] [place] WBC (Bld) [#/Vol] 8.67 10*3/uL Normal 3.70-11.00 [facility] Comment on above: Order Comment: Speci men Type: BLOOD SPECIMEN Ordering Facility: [facility] Address: [address] [place] [address] Performed By: #### 5 7021-8 #### [facility] IA [id number] [address] [place] [address] [place] CNOVon 08-17-2022 CNOV Office Visit ([facility] PRISCILAESHA Cordova ([id number]) 4 F Date Time Provider Department 08/17/22 3:00 PM SUSANNA BARRIGA PDPUHM During your visit today, we recorded the following information about you: Pulse Blood pressure Weight Height 117/minute 127/71 76 kg 1.565 m Portia Tobar Ma 08/17/2022 2:55 PM Signed Neck circ 35 cm Portia Barriga MD 08/17/2022 3:40 PM Signed [facility] Follow up/ Established [...] anxiety, depression Clinical course: Testing/studies: 04/29/21: PSG: YRX=302 min, 81.4% efficiency, CLARISA 48.5min, REM latency [...] yo F followed in sleep clinic for hypersomnolence/exces sive daytime sleepiness (EDS). PSG was negative for GRAYSON but demonstrated hypoventilation/hyper capnia during wakefulness and sleep of unclear etiology. 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 Pt [...] not have a vape Etoh - denies [place] Sleepiness Scale: 15 PATIENT-ENTERED QUESTIONNAIRE SLEEP SCORES [place] Sleepiness Scale 05/19/2021 08/16/2022 Score 19 (s (more content not included)... Normal [facility] Comprehensive metabolic 2000 panelon 08-17-2022 Albumin [Mass/Vol] 4.6 g/dL Normal 3.9-4.9 [facility] Comment on above: Order Comment: Chii daphnie Type: BLOOD SPECIMEN Ordering Facility: [facility] Address: [address] [address] Performed By: #### 2 4323-8, 86296-8, 6-4, 3016-3 #### [facility] CLIA [id number] [address] [place] [address] [place] ALP [Catalytic activity/Vol] 65 U/L Normal 34-123 [facility] Comment on above: Order Comment: Speci men Type: BLOOD SPECIMEN Ordering Facility: [facility] Address: [address] [id number] Performed By: #### 2 4323-8, 01288-5, 6-4, 3016-3 #### [facility] CLIA [id number] [address] [place] [address] [place] ALT [Catalytic activity/Vol] 10 U/L Normal 7-38 [facility] Comment on above: Order Comment: Speci men Type: BLOOD SPECIMEN Ordering Facility: [facility] Address: [address] Performed By: #### 2 4323-8, 98842-8, 6-4, 3016-3 #### [facility] CLIA [id number] [address] [place] [address] [place] Anion gap [Moles/Vol] 13 mmol/L Normal 9-18 [facility] Comment on above: Order Comment: Speci men Type: BLOOD SPECIMEN Ordering Facility: [facility] Address: [address] Performed By: #### 2 4323-8, 33826-9, 6-4, 3016-3 #### [facility] CLIA [id number] [address] [place] [address] [place] AST [Catalytic activity/Vol] 11 U/L Low 13-35 [facility] Comment on above: Order Comment: Speci men Type: BLOOD SPECIMEN Ordering Facility: [facility] Address: [address] [address] Performed By: #### 2 4323-8, 54899-9, 6-4, 3016-3 #### [facility] CLIA [id number] [address] [place] [address] [place] Bilirubin [Mass/Vol] 0.5 mg/dL Normal 0.2-1.3 [facility] Comment on above: Order Comment: Speci men Type: BLOOD SPECIMEN Ordering Facility: [facility] Address: [address] [place] [address] Performed By: #### 2 4323-8, 80645-9, 6-4, 3016-3 #### [facility] CLIA [id number] [address] [place] [address] [place] Calcium [Mass/Vol] 9.7 mg/dL Normal 8.5-10.2 [facility] Comment on above: Order Comment: Speci men Type: BLOOD SPECIMEN Ordering Facility: [facility] Address: [address] Performed By: #### 2 4323-8, 03335-9, 6-4, 3016-3 #### [facility] CLIA [id number] [address] [place] [address] [place] Chloride [Moles/Vol] 103 mmol/L Normal 97-105 [facility] Comment on above: Order Comment: Speci men Type: BLOOD SPECIMEN Ordering Facility: [facility] Address: [address] [place] [address] Performed By: #### 2 4323-8, 23978-4, 6-4, 3016-3 #### [facility] CLIA [id number] [address] [place] [address] [place] CO2 [Moles/Vol] 22 mmol/L Normal 22-30 [facility] Comment on above: Order Comment: Speci men Type: BLOOD SPECIMEN Ordering Facility: [facility] Address: [address] [place] [address] Performed By: #### 2 4323-8, 67864-2, 6-4, 6-3 #### [facility] IA [id number] [address] [place] [address] [place] Creatinine [Mass/Vol] 0.76 mg/dL Normal 0.58-0.96 [facility] Comment on above: Order Comment: Speci men Type: BLOOD SPECIMEN Ordering Facility: [facility] Address: [address] [place] [address] Performed By: #### 2 4323-8, 49006-5, 6-4, 6-3 #### [facility] IA [id number] [address] [place] [address] [place] ESTIMATED GLOMERULAR FILTRATION RATE 116 mL/min/1.73m??? Normal >=60 [facility] Comment on above: Order Comment: Speci men Type: BLOOD SPECIMEN Ordering Facility: [facility] Address: [address] [place] [address] Result Comment: Linda mated Glomerular Filtration Rate (eGFR) is calculated using the 2020 CKD-EPI creatinine equation. This equation utilizes serum creatinine, sex, and age as parameters. The creatinine assay has traceable calibration to isotope dilution-mass spectrometry. Refer to KDIGO guidelines for clinical interpretation. In patients with unstable renal function, e.g. those with acute kidney injury, the eGFR may not accurately reflect actual GFR. Performed By: #### 2 4323-8, 95405-1, 6-4, 3016-3 #### [facility] CLIA [id number] [address] [place] [address] [place] Glucose [Mass/Vol] 92 mg/dL Normal 74-99 [facility] Comment on above: Order Comment: Jese eller Type: BLOOD SPECIMEN Ordering Facility: [facility] Address: [address] [place] [address] Result Comment: The [place] Diabetes Association (ADA) provides guidance for cutoff values for fasting glucose and random glucose. The ADA defines fasting as no caloric intake for at least 8 hours. Fasting plasma glucose results between 100 to 125 mg/dL indicate increased risk for diabetes (prediabetes). Fasting plasma glucose results greater than or equal to 126 mg/dL meet the criteria for diagnosis of diabetes. In the absence of unequivocal hyperglycemia, results should be confirmed by repeat testing. In a patient with classic symptoms of hyperglycemia or hyperglycemic crisis, random plasma glucose results greater than or equal to 200 mg/dL meet the criteria for diagnosis of diabetes. Reference: Standards of Medical Care in Diabetes 2016, [place] [employer] Association. Diabetes Care. 2016.39(Suppl 1). Performed By: #### 2 4323-8, 37956-7, 6-4, 6-3 #### [facility] CLIA [id number] [address] [place], [place] [id number] [place] Potassium [Moles/Vol] 4.1 mmol/L Normal 3.7-5.1 [facility] Comment on above: Order Comment: Jese eller Type: BLOOD SPECIMEN Ordering Facility: [facility] Address: [address] [place] [address] Performed By: #### 2 4323-8, 95055-3, 6-4, 6-3 #### [facility] CLIA [id number] [address] [id number] [place] Protein [Mass/Vol] 6.9 g/dL Normal 6.3-8.0 [facility] Comment on above: Order Comment: Speci men Type: BLOOD SPECIMEN Ordering Facility: [facility] Address: [address] [address] Performed By: #### 2 4323-8, 52640-4, 6-4, 3016-3 #### [facility] CLIA [id number] [address] [place] [address] [place] Sodium [Moles/Vol] 138 mmol/L Normal 136-144 [facility] Comment on above: Order Comment: Speci men Type: BLOOD SPECIMEN Ordering Facility: [facility] Address: [address] [address] Performed By: #### 2 4323-8, 71572-7, 6-4, 6-3 #### [facility] CLIA [id number] [address] [place] [address] [place] Urea nitrogen [Mass/Vol] 8 mg/dL Normal 7-21 [facility] Comment on above: Order Comment: Speci men Type: BLOOD SPECIMEN Ordering Facility: [facility] Address: [address] [address] Performed By: #### 2 4323-8, 24889-7, 6-4, 6-3 #### [facility] CLIA [id number] [address] [place] [address] [place] Ferritin SerPl-mCncon 2022 Ferritin [Mass/Vol] 47.4 ng/mL Normal 14.7-205.1 [facility] Comment on above: Order Comment: Speci men Type: BLOOD SPECIMEN Ordering Facility: [facility] Address: [address] [address] Performed By: #### 2 4323-8, 92476-7, 6-4, 3016-3 #### [facility] CLIA [id number] [address] [place] [address] [place] Iron and Iron binding capaci ty panelon 08-17-2022 Iron [Mass/Vol] 138 ug/dL Normal 41-186 [facility] Comment on above: Order Comment: Speci men Type: BLOOD SPECIMEN Ordering Facility: [facility] Address: [address] [address] Performed By: #### 2 4323-8, 21203-8, 6-4, 3016-3 #### [facility] CLIA [id number] [address] [place] [address] [place] Iron binding capacity [Mass/Vol] 341 ug/dL Normal 232-386 [facility] Comment on above: Order Comment: Speci men Type: BLOOD SPECIMEN Ordering Facility: [facility] Address: [address] [address] Performed By: #### 2 4323-8, 55944-2, 6-4, 3016-3 #### [facility] CLIA [id number] [address] [place] [address] [place] Iron/TIBC [Molar ratio] 40.5 % Normal 15.0-57.0 [facility] Comment on above: Order Comment: Speci men Type: BLOOD SPECIMEN Ordering Facility: [facility] Address: [address] [address] Performed By: #### 2 4323-8, 45563-5, 6-4, 3016-3 #### [facility] CLIA [id number] [address] [place] [address] [place] T4 Free SerPl-mCncon 023 Free T4 [Mass/Vol] 1.6 ng/dL Normal 0.9-1.7 [facility] Comment on above: Order Comment: Speci men Type: BLOOD SPECIMEN Ordering Facility: [facility] Address: [address] [address] Performed By: #### 3 024-7 #### [facility] CLIA [id number] [address] [facility] [address] [id number] [address] [place] TSH SerPl-aCncon 08-17-2022 TSH Qn 1.950 m[IU]/L Normal 0.510-4.300 [facility] Comment on above: Order Comment: Speci men Type: BLOOD SPECIMEN Ordering Facility: [facility] Address: [address] [place] [address] Result Comment: If t he patient is , TSH reference range varies by gestational period: First Trimester (weeks 9-12): 0.180-2.990 mIU/L Second Trimester: 0.110-3.980 mIU/L Third Trimester: 0.480-4.710 mIU/L Valentín Agrawal et al. A Practical Approach for the Verifications and Determination of Site- and Trimester-Specific Reference Intervals for Thyroid Function tests in . Thyroid, 2019:29:3:412-420. Ruy E, et al. 2017 Guidelines of the [place] Thy[employer] Association for the Diagnosis and Management of Thyroid Disease during and the . Thyroid, 2017:27:3:315-389. Reference ranges were not locally established for this patient's age group. The normal values are based on the following source: Oz Daniels, Oscar V. Reference Ranges for Adults and Children: Pre-analytical Considerations. [facility] Performed By: #### 2 4323-8, 50435-0, 2276-4, 3016-3 #### [facility] CLIA [id number] [address] [place] [address] [place] [facility] Absolute lymphocyte countOrd ered By: Dr. Cline on 05-19-2022 Lymphocytes Auto (Unsp spec) [#/Vol] 1.96 10*3/uL 0.83-4.51 [facility] Basophil percentageOrdered B y: Dr. Cline on 05-19-2022 Basophil percentage 0-5 SEEN /hpf 0-5 [facility] Basophils/100 WBC (Bld) 0.3 % 0-1 [facility] Bilirubin [Mass/Vol] 0.40 mg/dL 0.20-1.00 [facility] Comment on above: For patients on eltr ombopag therapy, use of Dimension Elida TBIL is not recommended. Chloride [Moles/Vol] 109 mmol/L 98-107 [facility] Eosinophils/100 WBC (Bld) 0.1 % 0-5 [facility] Glucose [Mass/Vol] 141 mg/dL 74-106 [facility] Comment on above: Fasting Glucose resu lt greater than or equal to 126 mg/dL suggests DIABETES MELLITUS per A.D.A. criteria. Neutrophils (Bld) [#/Vol] 15.0 10*3/uL 2.0-7.7 [facility] Neutrophils/100 WBC (Bld) 82.7 % 47-70 [facility] Potassium [Moles/Vol] 3.6 mmol/L 3.5-5.1 [facility] Comment on above: Moderate Hemolysis, Result may be falsely increased. Protein [Mass/Vol] 8.0 g/dL 6.4-8.2 [facility] Sodium [Moles/Vol] 141 mmol/L 136-145 [facility] WBC (Bld) [#/Vol] 18.2 10*3/uL 4.4-11.0 [facility] Beta hCG serum qualOrdered B y: Dr. Cline on 05-19-2022 Beta HCG ( test) Ql Negative [facility] Bilirubin Test strip Ql (U)O rdered By: Dr. Cline on 05-19-2022 Bilirubin Ql (U) Negative Negative [facility] Blood erythrocytes count (nu mber/volume)Ordered By: Dr. Cline on 05-19-2022 RBC (Bld) [#/Vol] 5.61 10*6/uL 4.2-5.4 [facility] Blood hemoglobin measurement (mass/volume)Ordered By: Dr. Cline on 05-19-2022 Hemoglobin (Bld) [Mass/Vol] 16.0 g/dL 12.0-15.0 [facility] Blood lymphocytes/100 leukoc ytesOrdered By: Dr. Cline on 05-19-2022 Lymphocytes/100 WBC (Bld) 10.8 % 19-41 [facility] Blood monocytes/100 leukocyt esOrdered By: Dr. Cline on 05-19-2022 Monocytes/100 WBC (Bld) 5.3 % 0-10 [facility] Blood platelet mean volumeOr dered By: Dr. Cline on 05-19-2022 Platelet mean volume (Bld) [Entitic vol] 9.5 fL 6.2-12.0 [facility] Determination of erythrocyte mean corpuscular volume (MCV)Ordered By: Dr. Cline on 05-19-2022 MCV (RBC) [Entitic vol] 85.7 fL 81-99 [facility] Hematocrit Auto (Bld) [Volum e fraction]Ordered By: Dr. Cline on 05-19-2022 Hematocrit (Bld) [Volume fraction] 48.1 % 37-47 [facility] Ketones Test strip Ql (U)Ord ered By: Dr. Cline on 05-19-2022 Ketones Ql (U) 5 mg/dl Negative [facility] - Chemistry and C hemistry - challengeOrdered By: Dr. Cline on 05-19-2022 ALP [Catalytic activity/Vol] 71 U/L 45-117 [facility] ALT [Catalytic activity/Vol] 15 U/L 13-56 [facility] CO2 [Moles/Vol] 26.0 mmol/L 21.0-32.0 [facility] Globulin (S) [Mass/Vol] 4.0 g/dL 2.2-4.2 [facility] Lipase [Catalytic activity/Vol] 90 U/L 73-393 [facility] Urea nitrogen/Creatinine [Mass ratio] 5.2 mg/mg 10-20 [facility] - Hematology and Cell countsOrdered By: Dr. Cline on 05-19-2022 Erythrocyte distribution width (RBC) [Entitic vol] 38.8 fL 35.1-43.9 [facility] Erythrocyte distribution width (RBC) [Ratio] 12.6 % 11.6-14.6 [facility] Immature granulocytes/100 WBC (Bld) 0.800 % 0.0-0.9 [facility] Comment on above: IG% - Immature Granu locytes (promyelocytes, myelocytes and metamyelocytes) > 1% indicates that a LEFT SHIFT is Present. MCH (RBC) [Entitic mass] 28.5 pg 27.0-32.0 [facility] Nucleated RBC/100 WBC (Bld) [Ratio] 0 % 0-5 [facility] MCHC Auto (RBC) [Mass/Vol]Or dered By: Dr. Cline on 05-19-2022 MCHC (RBC) [Mass/Vol] 33.3 g/dL 32-36 [facility] Mucus LM Ql (Urine sed)Order ed By: Dr. Cline on 05-19-2022 Mucus Ql (Urine sed) 3+ /hpf [facility] Nitrite Test strip Ql (U)Ord ered By: Dr. Cline on 05-19-2022 Nitrite Ql (U) Negative Negative [facility] No Panel InformationOrdered By: Dr. Cline on 05-19-2022 Estimated Creatinine Clearance Calc 71.13 ml/min [facility] Estimated GFR (MDRD) Amer 96 mL/min >60 [facility] Comment on above: GFR Calc Estimated GFR (MDRD) Non-Af Amer 79 mL/min >60 [facility] Comment on above: Non- GFR Calc Platelets bldOrdered By: Dr. Cline on 05-19-2022 Platelets (Bld) [#/Vol] 412 10*3/uL 150-450 [facility] Protein Test strip Ql (U)Ord ered By: Dr. Cline on 05-19-2022 Protein Ql (U) 30 mg/dl Negative [facility] Serum or plasma albumin darren urement (mass/volume)Ordered By: Dr. Cline on 05-19-2022 Albumin [Mass/Vol] 4.0 g/dL 3.2-5.0 [facility] Serum or plasma albumin/glob ulin mass ratioOrdered By: Dr. Cline on 05-19-2022 Albumin/Globulin [Mass ratio] 1.0 {ratio} 0.9-2.4 [facility] Serum or plasma calcium darren urement (mass/volume)Ordered By: Dr. Cline on 05-19-2022 Calcium [Mass/Vol] 9.4 mg/dL 8.5-10.1 [facility] Serum or plasma creatinine m easurement (mass/volume)Ordered By: Dr. Cline on 05-19-2022 Creatinine [Mass/Vol] 0.96 mg/dL 0.55-1.02 [facility] Comment on above: The validity of the calculated GFR & GFRAA in patients over 70 years has not been determined. Clinical correlation is essential. Serum or plasma urea nitroge n measurement (mass/volume)Ordered By: Dr. Cline on 05-19-2022 Urea nitrogen [Mass/Vol] 5 mg/dL 7-18 [facility] Squamous epithelial cells de tection in urine sediment by light microscopyOrdered By: Dr. Cline on 05-19-2022 Epithelial cells.squamous LM Ql (Urine sed) 5-10 SEEN /hpf 5-10 [facility] Thin prep Papanicolaou smear with manual screeningOrdered By: Dr. Cline on 05-19-2022 Thin prep Papanicolaou smear with manual screening 18 U/L 15-37 [facility] Comment on above: Moderate Hemolysis, Result may be falsely increased. Thin prep Papanicolaou smear with manual screening 6 5-15 [facility] Urine blood detectionOrdered By: Dr. Cline on 05-19-2022 RBC Ql (U) Negative Negative [facility] RBC Ql (U) 0 SEEN /hpf 0-5 [facility] Urine clarityOrdered By: Dr. Cline on 05-19-2022 Clarity (U) Clear Clear [facility] Urine color determinationOrd ered By: Dr. Cline on 05-19-2022 Color (U) Yellow Yellow [facility] Urine glucose detectionOrder ed By: Dr. Cline on 05-19-2022 Glucose Ql (U) Normal mg/dl Normal [facility] Urine leukocyte esterase det ection by dipstickOrdered By: Dr. Cline on 05-19-2022 Leukocyte esterase Test strip Ql (U) 25 /ul Negative [facility] Urine pHOrdered By: Dr. Iveth torres on 05-19-2022 pH (U) 5.0 [pH] 5.0 - 8.0 [facility] Urine sediment bacteria coun t by microscopy (number/high power field)Ordered By: Dr. Cline on 05-19-2022 Bacteria LM.HPF (Urine sed) [#/Area] 2 /[HPF] None Seen [facility] Urine specific gravity measu rementOrdered By: Dr. Cline on 05-19-2022 Specific gravity (U) [Rel density] 1.030 1.002-1.030 [facility] Urobilinogen Auto test strip Ql (U)Ordered By: Dr. Cline on 05-19-2022 Urobilinogen Ql (U) 1 mg/dl Normal [facility] ALLIED HEALTHon 02-20-2022 ALLIED HEALTH HNO ID: [id number] Author: RT Chen(R) Service: ? Author Type: Java Portal Developer Type: Allied Health Filed: 02/20/2022 9:49 AM Note Text: Radiology Service Progress Note PATIENT NAME: Esha Francois DATE OF SERVICE: February 20, 2022 TIME: 9:48 AM PATIENT IDENTITY VERIFICATION COMPLETED USING TWO [...] Applicable RADIOLOGY DEPARTMENT: General X-ray: Exam(s) Completed: Lower Extremity X-Ray(s): Knee, AP / Lat / Tunne / Merchant Bilateral PERIPHERAL IV DATA: Not applicable SIGNED BY: RT Chen(R) February 20, 2022 9:48 AM [facility] XR KNEE 4V AP/PA/LAT/MERCH B ILon 02-20-2022 XR KNEE 4V AP/PA/LAT/MERCH IVAN * * *Final Report* * * DATE [...] joint effusion. No soft tissue abnormality identified. IMPRESSION: No acute osseous abnormality identified. Left knee patella devan.. Coremaker Pipe: HEMA Transcribe Date/Time: Feb 20 2022 3:54P Dictated by : ONI GILLETTE MD This examination was interpreted and the report reviewed and electronically signed by: ONI GILLETTE MD on Feb 20 2022 3:56PM EST [id number] N Normal [facility] XR Knee - bilateral 4 Viewso n 02-20-2022 IMPRESSION: No acute osseous abnormality identified. Left knee patella devan.. Coremaker Pipe: PSCB Transcribe Date/Time: Feb 20 2022 3:54P Dictated by : ONI GILLETTE MD This examination was interpreted and the report reviewed and electronically signed by: ONI GILLETTE MD on Feb 20 2022 3:56PM EST [facility] * * *Final Report* * * DATE OF EXAM: Feb 20 2022 9:48AM 5618 - XR KNEE 4V AP/PA/LAT/MERCH IVAN [...] joint effusion. No soft tissue abnormality identified. [facility] Provider, Flory Ludwin [facility] - 02/20/2022 * * *Final Report* * * DATE OF EXAM: Feb 20 2022 9:48AM 5618 - XR KNEE 4V AP/PA/LAT/MERCH IVAN [...] joint effusion. No soft tissue abnormality identified. IMPRESSION IMPRESSION: No acute osseous abnormality identified. Left knee patella devan.. Coremaker Pipe: PSCB Transcribe Date/Time: Feb 20 2022 3:54P Dictated by : ONI GILLETTE MD This examination was interpreted and the report reviewed and electronically signed by: ONI GILLETTE MD on Feb 20 2022 3:56PM EST [facility] Radiology Study observation (narrative) Tamie jang [facility] XR Knee - bilateral 4 ViewsO rdered By: [facility] Provider on 02-20-2022 [facility] C. trachomatis+N. gonorrhoea e DNA ROMAN+probe Ql (U)on 12-20-2021 C. trachomatis DNA ROMAN+probe Ql (Unsp spec) Negative Negative for Chlamydia trachomatis by amplificaton [facility] N. gonorrhoeae DNA ROMAN+probe Ql (Unsp spec) Negative Negative for Neisseria gonorrhoeae by amplification [facility] T VAGINALIS AMPLIFICATIONon 12-20-2021 T. vaginalis DNA ROMAN+probe Ql (Unsp spec) Negative Negative for Trichomonas vaginalis by amplification [facility] ACYLCARNITINES, PLASMA W/ CO NSULTATIONon 06-27-2021 3-Hydroxyisovalerylcarn itine (C5-OH) [Moles/Vol] 42 nmol/L Normal 7-42 [facility] Comment on above: Order Comment: Speci men Type: BLOOD SPECIMEN Ordering Facility: [facility] Address: [address] [place] [address] Performed By: #### 1 1565-9, 10672-1, 77255-0, 29480-7, 11604-6, 96061-0, 54348-1 #### [facility] CLIA [id number] [address] [place], [place] [address] [address] [place] 3-Hydroxytetradecenoylc arnitine (C14:1-OH) [Moles/Vol] 6 nmol/L Normal 1-12 [facility] Comment on above: Order Comment: Speci men Type: BLOOD SPECIMEN Ordering Facility: [facility] Address: [address], [place] [address] Performed By: #### 1 1565-9, 65472-4, 91358-6, 10068-9, 61715-4, 83972-3, 75510-9 #### [facility] CLIA [id number] [address] [place], [place] [address] [place] [facility] ACYLCARNITINE REVIEW Reviewed by Win Durham MD, Ph.D ([id number]) [facility] Comment on above: Order Comment: Speci men Type: BLOOD SPECIMEN Ordering Facility: [facility] Address: [address] [place], [place] [address] Performed By: #### 1 1565-9, 89189-3, 32313-1, 09806-8, 91730-2, 99587-5, 13967-3 #### [facility] CLIA [id number] [address] [place] [address] ACYLCARNITINES, COMMENT [facility] Comment on above: Order Comment: [facility] Type: BLOOD SPECIMEN Ordering Facility: [facility] Address: [address] [place], [place] [id number] Result Comment: This plasma acylcarnitine analysis shows no significant abnormalities. NOTE: The biochemical expression of the free carnitine and acylcarnitine abnormalities in mitochondrial fatty acid beta oxidation disorders can be dependent on the nutritional status of the subject, the underlying genetic abnormality that he or she may have, concurrent illnesses and other factors. This is also true for other disorders for which plasma acylcarnitine profiling is sometimes a diagnostic tool such as disorders of organic acid metabolism, disorders of mitochondrial oxidative phosphorylation and some nutritional deficiencies. Consequently and unless otherwise stated, a normal or non-diagnostic test result on plasma acylcarnitine profiling does not always rule out the possibility of the types of disorders noted above. This test was developed and its performance characteristics determined by the Pathology and Laboratory Medicine [place] at the [facility]. The U.S. Food and Drug Administration has not approved or cleared this test, however, FDA clearance or approval is not currently required for clinical use. Performed By: #### 1 1565-9, 08351-4, 61294-4, 16692-2, 28321-7, 32175-7, 01651-0 #### [facility] CLIA [id number] [address] [place] [address] [place] C0 [Moles/Vol] 30 umol/L Normal 22-54 [facility] Comment on above: Order Comment: Speci men Type: BLOOD SPECIMEN Ordering Facility: [facility] Address: [address] [place] [address] Performed By: #### 1 1565-9, 11206-0, 56773-4, 06609-6, 70477-5, 18921-0, 46035-7 #### [facility] CLIA [id number] [address] [place] [address] [place] C0/Total carnitine [Molar fraction] 0.789 Normal 0.700-0.900 [facility] Comment on above: Order Comment: Speci men Type: BLOOD SPECIMEN Ordering Facility: [facility] Address: [address] [place] [address] Performed By: #### 1 1565-9, 25084-1, 45828-5, 59905-6, 97399-1, 15953-2, 09796-9 #### [facility] CLIA [id number] [address] [place] [address] [place] C10 [Moles/Vol] 92 nmol/L Normal 12-251 [facility] Comment on above: Order Comment: Speci men Type: BLOOD SPECIMEN Ordering Facility: [facility] Address: [address] [place] [address] Performed By: #### 1 1565-9, 07176-9, 37317-5, 41611-2, 32063-3, 45913-5, 13095-8 #### [facility] CLIA [id number] [address] [place] [address] [place] C10:1 [Moles/Vol] 101 nmol/L Normal 23-323 [facility] Comment on above: Order Comment: Speci men Type: BLOOD SPECIMEN Ordering Facility: [facility] Address: [address] [place] [address] Performed By: #### 1 1565-9, 59506-8, 26607-0, 98484-9, 88934-6, 15189-4, 17372-5 #### [facility] CLIA [id number] [address] [place] [address] [place] C12 [Moles/Vol] 77 nmol/L Normal 9-114 [facility] Comment on above: Order Comment: Speci men Type: BLOOD SPECIMEN Ordering Facility: [facility] Address: [address] [place], [place] [address] Performed By: #### 1 1565-9, 57929-8, 12757-0, 31353-2, 42661-8, 83350-9, 72103-0 #### [facility] CLIA [id number] [address] [place] [address] [place] C12-OH [Moles/Vol] 4 nmol/L Normal 1-7 [facility] Comment on above: Order Comment: Speci men Type: BLOOD SPECIMEN Ordering Facility: [facility] Address: [facility] ERICAnt [address] Performed By: #### 1 1565-9, 97538-9, 22665-3, 75155-0, 93305-0, 22009-9, 05732-7 #### [facility] CLIA [id number] [address] [place] [address] [place] C12:1 [Moles/Vol] 39 nmol/L Normal 2-42 [facility] Comment on above: Order Comment: Speci men Type: BLOOD SPECIMEN Ordering Facility: [facility] Address: [facility] [address] Performed By: #### 1 1565-9, 36395-0, 46716-9, 58508-7, 97893-3, 48902-8, 36363-9 #### [facility] CLIA [id number] [address] [place] [address] [place] C12:1-[place] [Moles/Vol] 3 nmol/L Normal 0-3 [facility] Comment on above: Order Comment: Speci men Type: BLOOD SPECIMEN Ordering Facility: [facility] Address: [address] [place] [address] Performed By: #### 1 1565-9, 43489-0, 30504-5, 64231-2, 19267-2, 10167-4, 50626-4 #### [facility] CLIA [id number] [address] [place] [address] [place] C14 [Moles/Vol] 28 nmol/L Normal 7-46 [facility] Comment on above: Order Comment: Speci men Type: BLOOD SPECIMEN Ordering Facility: [facility] Address: [address] [place] [address] Performed By: #### 1 1565-9, 79219-0, 34752-7, 11319-4, 51264-6, 90899-3, 97733-9 #### [facility] CLIA [id number] [address] [place] [address] [place] C14-OH [Moles/Vol] 4 nmol/L Normal 1-10 [facility] Comment on above: Order Comment: Speci men Type: BLOOD SPECIMEN Ordering Facility: [facility] Address: [address] [place], [place] [address] Performed By: #### 1 1565-9, 26468-7, 06932-8, 48891-4, 14409-6, 43104-1, 15742-5 #### [facility] CLIA [id number] [address] [place] [address] [place] C14:1 [Moles/Vol] 74 nmol/L Normal 4-87 [facility] Comment on above: Order Comment: Speci men Type: BLOOD SPECIMEN Ordering Facility: [facility] Address: [address] [place] [address] Performed By: #### 1 1565-9, 30353-1, 28900-6, 48715-1, 63382-6, 73821-5, 45647-2 #### [facility] CLIA [id number] [address] [place] [address] [place] C14:2 [Moles/Vol] 42 nmol/L Normal 4-42 [facility] Comment on above: Order Comment: Speci men Type: BLOOD SPECIMEN Ordering Facility: [facility] Address: [address] [place] [address] Performed By: #### 1 1565-9, 38014-0, 45676-4, 43598-7, 26771-4, 23557-2, 75588-7 #### [facility] CLIA [id number] [address] [place] [address] [place] C16 [Moles/Vol] 96 nmol/L Normal 47-174 [facility] Comment on above: Order Comment: Speci men Type: BLOOD SPECIMEN Ordering Facility: [facility] Address: [address] [place] [address] Performed By: #### 1 1565-9, 04977-7, 37658-7, 52948-6, 72988-6, 14306-8, 02599-4 #### [facility] CLIA [id number] [address] [place] [address] [place] C16-OH [Moles/Vol] 3 nmol/L Normal 1-7 [facility] Comment on above: Order Comment: Speci men Type: BLOOD SPECIMEN Ordering Facility: [facility] Address: [address] [place] [address] Performed By: #### 1 1565-9, 60989-1, 23675-2, 00449-5, 70823-5, 26081-8, 72346-0 #### [facility] CLIA [id number] [address] [place] [address] [place] C16:1 [Moles/Vol] 19 nmol/L Normal 3-22 [facility] Comment on above: Order Comment: Speci men Type: BLOOD SPECIMEN Ordering Facility: [facility] Address: [address] [place] [address] Performed By: #### 1 1565-9, 57424-0, 22152-1, 00131-6, 12929-0, 40753-4, 86984-2 #### [facility] CLIA [id number] [address] [place] [address] [place] C16:1-[place] [Moles/Vol] 2 nmol/L Normal 0-2 [facility] Comment on above: Order Comment: Speci men Type: BLOOD SPECIMEN Ordering Facility: [facility] Address: [address] [place] [address] Performed By: #### 1 1565-9, 43391-6, 51010-9, 00397-5, 94922-6, 86149-1, 18300-4 #### [facility] CLIA [id number] [address] [place] [address] [place] C18 [Moles/Vol] 26 nmol/L Normal 19-65 [facility] Comment on above: Order Comment: Speci men Type: BLOOD SPECIMEN Ordering Facility: [facility] Address: [address] [place] [address] Performed By: #### 1 1565-9, 05085-0, 62136-7, 42364-5, 97099-0, 24986-0, 08042-4 #### [facility] CLIA [id number] [address] [place] [address] [place] C18:1 [Moles/Vol] 113 nmol/L Normal 25-163 [facility] Comment on above: Order Comment: Speci men Type: BLOOD SPECIMEN Ordering Facility: [facility] Address: [address] [place] [address] Performed By: #### 1 1565-9, 69850-3, 58640-9, 71345-4, 46771-6, 52868-2, 75054-0 #### [facility] CLIA [id number] [address] [place] [address] [place] [facility] [place] C18:1-[place] [Moles/Vol] 3 nmol/L High 0-2 [facility] Comment on above: Order Comment: Speci men Type: BLOOD SPECIMEN Ordering Facility: [facility] Address: [address] [place] [address] Performed By: #### 1 1565-9, 45523-0, 08253-0, 29856-5, 81300-8, 38418-7, 86745-8 #### [facility] CLIA [id number] [address] [place] [address] [place] C18:2 [Moles/Vol] 65 nmol/L Normal 11-95 [facility] Comment on above: Order Comment: Speci men Type: BLOOD SPECIMEN Ordering Facility: [facility] Address: [address] [place] [address] Performed By: #### 1 1565-9, 74682-2, 24422-1, 79234-0, 44033-5, 16538-0, 01228-9 #### [facility] CLIA [id number] [address] [place] [address] [place] C18:2-[place] [Moles/Vol] 2 nmol/L High 0-1 [facility] Comment on above: Order Comment: Speci men Type: BLOOD SPECIMEN Ordering Facility: [facility] Address: [address] [place] [address] Performed By: #### 1 1565-9, 64923-0, 10156-8, 95678-2, 74035-4, 15444-1, 15867-5 #### [facility] CLIA [id number] [address] [place] [address] [place] C2 [Moles/Vol] 87610 nmol/L Normal 3,571-17,279 [facility] Comment on above: Order Comment: Speci men Type: BLOOD SPECIMEN Ordering Facility: [facility] Address: [address] [place] [address] Performed By: #### 1 1565-9, 61099-3, 61246-0, 49561-9, 40143-2, 87917-7, 41789-3 #### [facility] CLIA [id number] [address] [place] [address] [place] C3 [Moles/Vol] 311 nmol/L Normal 155-894 [facility] Comment on above: Order Comment: Speci men Type: BLOOD SPECIMEN Ordering Facility: [facility] Address: [address] [place] [address] Performed By: #### 1 1565-9, 94123-1, 38687-2, 47614-2, 96201-8, 99262-2, 54128-1 #### [facility] CLIA [id number] [address] [place] [address] [place] C3-DC [Moles/Vol] 49 nmol/L Normal 6-122 [facility] Comment on above: Order Comment: Speci men Type: BLOOD SPECIMEN Ordering Facility: [facility] Address: [address] [place] [address] Performed By: #### 1 1565-9, 48313-9, 09000-1, 74978-5, 47871-8, 95176-1, 69241-2 #### [facility] CLIA [id number] [address] [place] [address] [place] C4-DC [Moles/Vol] 24 nmol/L Normal 15-59 [facility] Comment on above: Order Comment: Speci men Type: BLOOD SPECIMEN Ordering Facility: [facility] Address: [address] [place] [address] Performed By: #### 1 1565-9, 45196-6, 42890-7, 80674-8, 03537-2, 63350-6, 41080-6 #### [facility] CLIA [id number] [address] [place] [address] [place] C4-OH [Moles/Vol] 21 nmol/L Normal 3-40 [facility] Comment on above: Order Comment: Speci men Type: BLOOD SPECIMEN Ordering Facility: [facility] Address: [address] [place] [address] Performed By: #### 1 1565-9, 91244-6, 68001-3, 48628-6, 22599-4, 41125-6, 70704-8 #### [facility] CLIA [id number] [address] [place] [address] [place] C5-DC [Moles/Vol] 55 nmol/L Normal 16-126 [facility] Comment on above: Order Comment: Speci men Type: BLOOD SPECIMEN Ordering Facility: [facility] Address: [address] [place] [address] Performed By: #### 1 1565-9, 31093-2, 23106-4, 41699-6, 58819-1, 68116-0, 58226-7 #### [facility] CLIA [id number] [address] [place] [address] [place] C6 [Moles/Vol] 28 nmol/L Normal 7-69 [facility] Comment on above: Order Comment: Speci men Type: BLOOD SPECIMEN Ordering Facility: [facility] Address: [address] [place], [place] [address] Performed By: #### 1 1565-9, 71092-1, 89300-1, 42444-2, 66881-1, 95631-7, 27834-8 #### [facility] CLIA [id number] [address] [place] [address] [place] C8 [Moles/Vol] 107 nmol/L Normal 22-282 [facility] Comment on above: Order Comment: Speci men Type: BLOOD SPECIMEN Ordering Facility: [facility] Address: [address] [place], [place] [address] Performed By: #### 1 1565-9, 86442-9, 71092-7, 25192-8, 64863-2, 97384-1, 47457-3 #### [facility] CLIA [id number] [address] [place] [address] [place] Carnitine [Moles/Vol] 38 umol/L Normal 27-68 [facility] Comment on above: Order Comment: Speci men Type: BLOOD SPECIMEN Ordering Facility: [facility] Address: [address] [place] [address] Performed By: #### 1 1565-9, 07632-1, 28942-9, 98449-1, 74982-2, 96556-8, 65797-7 #### [facility] CLIA [id number] [address] [place] [address] [place] Isobutyrylcarnitine (C4) [Moles/Vol] 59 nmol/L Normal 50-364 [facility] Comment on above: Order Comment: Speci men Type: BLOOD SPECIMEN Ordering Facility: [facility] Address: [address] [place] [address] Performed By: #### 1 1565-9, 19203-7, 33098-7, 22138-6, 15349-9, 73387-5, 90654-2 #### [facility] CLIA [id number] [address] [place] [address] [place] Isovalerylcarnitine+Met hylbutyrylcarnitine (C5) [Moles/Vol] 66 nmol/L Normal 25-225 [facility] Comment on above: Order Comment: Speci men Type: BLOOD SPECIMEN Ordering Facility: [facility] Address: [address] [place] [address] Performed By: #### 1 1565-9, 80978-6, 66958-4, 65078-0, 95829-3, 77876-9, 35779-3 #### [facility] CLIA [id number] [address] [place] [address] [place] Tiglylcarnitine (C5:1) [Moles/Vol] 4 nmol/L Normal 1-11 [facility] Comment on above: Order Comment: Speci men Type: BLOOD SPECIMEN Ordering Facility: [facility] Address: [address] [place] [address] Performed By: #### 1 1565-9, 58789-6, 67810-7, 41016-7, 90376-3, 40126-7, 80599-9 #### [facility] CLIA [id number] [address] [place] [address] [place] AMINO ACIDS, PLASMA W/ CONSU LTATIONon 06-27-2021 Alanine [Moles/Vol] 220 umol/L Normal 177-[address] [facility] Comment on above: Order Comment: Speci men Type: BLOOD SPECIMEN Ordering Facility: [facility] Address: [address] [place] [address] Performed By: #### 1 1565-9, 16610-1, 95439-3, 92220-7, 37756-1, 63636-4, 45168-1 #### [facility] CLIA [id number] [address] [place] [address] [place] Alloisoleucine [Moles/Vol] <1 Normal 0-2 [facility] Comment on above: Order Comment: Speci men Type: BLOOD SPECIMEN Ordering Facility: [facility] Address: [address] [place], [place] [address] Performed By: #### 1 1565-9, 61926-7, 84827-4, 13671-4, 03075-5, 01816-6, 08841-3 #### [facility] CLIA [id number] [address] [place] [address] [place] Alpha aminoadipate [Moles/Vol] <1 Normal 0-6 [facility] Comment on above: Order Comment: Speci men Type: BLOOD SPECIMEN Ordering Facility: [facility] Address: [address] [place], [place] [id number] Performed By: #### 1 1565-9, 83575-0, 71434-0, 86047-5, 73496-0, 48273-1, 09557-2 #### [facility] CLIA [id number] [address] [place] [address] [place] AMINO ACID CONSULTATION, PLASMA [facility] Comment on above: Order Comment: Speci men Type: BLOOD SPECIMEN Ordering Facility: [facility] Address: [address] [place], [place] [id number] Result Comment: Refe rence intervals from Francis E, Linda MG, Ravin HUANG, and Denny DK: Biochemical Genetics: A Laboratory Manual, Copyright 1989 by [employer] Reference intervals not established for some amino acids. This test was developed and its performance characteristics determined by [facility] [place] ([facility] It has not been cleared or approved by the FDA. -[facility] is regulated under CLIA as qualified to perform high complexity testing. This test is used for clinical purposes. It should not be regarded as investigational or for research. Performed By: #### 1 1565-9, 43678-9, 41569-8, 53366-2, 63273-8, 65592-3, 48038-6 #### [facility] CLIA [id number] [address] [place] [address] [place] AMINO ACIDS REVIEW, PLASMA Reviewed by Win Durham MD, Ph.D ([id number]) [facility] Comment on above: Order Comment: Speci men Type: BLOOD SPECIMEN Ordering Facility: [facility] Address: [address] [place] [id number] Result Comment: This plasma amino acid analysis shows some minor deviations from normal reference intervals but is not diagnostic of a specific disorder. Performed By: #### 1 1565-9, 25252-7, 01844-7, 52054-0, 05436-5, 17655-4, 79839-5 #### [facility] CLIA [id number] [address] [place] [address] [place] Arginine [Moles/Vol] 49 umol/L Normal 15-128 [facility] Comment on above: Order Comment: Speci men Type: BLOOD SPECIMEN Ordering Facility: [facility] Address: [address] [place] [address] Performed By: #### 1 1565-9, 90292-3, 94316-8, 68218-3, 67398-1, 74082-8, 15540-1 #### [facility] CLIA [id number] [address] [place] [address] [place] Asparagine [Moles/Vol] 50 umol/L Normal 35-74 [facility] Comment on above: Order Comment: Speci men Type: BLOOD SPECIMEN Ordering Facility: [facility] Address: [address] [place] [address] Performed By: #### 1 1565-9, 98304-3, 19297-6, 00966-4, 11742-9, 99141-2, 25626-9 #### [facility] CLIA [id number] [address] [place] [address] [place] Aspartate [Moles/Vol] 3 umol/L Normal 1-25 [facility] Comment on above: Order Comment: Speci men Type: BLOOD SPECIMEN Ordering Facility: [facility] Address: [address] [place] [address] Performed By: #### 1 1565-9, 48257-5, 49665-6, 17487-6, 64881-6, 64208-1, 04958-3 #### [facility] CLIA [id number] [address] [place] [address] [place] Citrulline [Moles/Vol] 25 umol/L Normal 12-55 [facility] Comment on above: Order Comment: Speci men Type: BLOOD SPECIMEN Ordering Facility: [facility] Address: [address] [place] [address] Performed By: #### 1 1565-9, 17631-3, 81254-1, 34925-5, 07846-9, 07548-3, 26039-5 #### [facility] CLIA [id number] [address] [place] [address] [place] Cystine [Moles/Vol] 29 umol/L Normal 5-[address] [facility] Comment on above: Order Comment: Speci men Type: BLOOD SPECIMEN Ordering Facility: [facility] Address: [address] [place] [address] Performed By: #### 1 1565-9, 37565-6, 45376-1, 23025-9, 81756-6, 44567-1, 38606-8 #### [facility] CLIA [id number] [address] [place] [address] [place] Glutamate [Moles/Vol] 40 umol/L Normal 10-131 [facility] Comment on above: Order Comment: Speci men Type: BLOOD SPECIMEN Ordering Facility: [facility] Address: [address] [place] [address] Performed By: #### 1 1565-9, 08933-6, 86993-7, 50121-8, 39164-7, 36859-5, 88922-2 #### [facility] CLIA [id number] [address] [place] [address] [place] Glutamine [Moles/Vol] 503 umol/L Normal 205-756 [facility] Comment on above: Order Comment: Speci men Type: BLOOD SPECIMEN Ordering Facility: [facility] Address: [address] [place] [address] Performed By: #### 1 1565-9, 10038-8, 49066-8, 39116-4, 57708-8, 61050-4, 60220-1 #### [facility] CLIA [id number] [address] [place] [address] [place] Glycine [Moles/Vol] 275 umol/L Normal 151-[address] [facility] Comment on above: Order Comment: Speci men Type: BLOOD SPECIMEN Ordering Facility: [facility] Address: [address] [place] [address] Performed By: #### 1 1565-9, 60856-0, 66551-0, 06687-8, 69909-5, 77908-6, 10902-8 #### [facility] CLIA [id number] [address] [place] [address] [place] Histidine [Moles/Vol] 78 umol/L Normal 72-124 [facility] Comment on above: Order Comment: Speci men Type: BLOOD SPECIMEN Ordering Facility: [facility] Address: [address] [place] [address] Performed By: #### 1 1565-9, 25720-6, 56279-6, 84888-2, 69757-0, 73797-5, 23359-2 #### [facility] CLIA [id number] [address] [place] [address] [place] Hydroxylysine [Moles/Vol] <1 High <=0 [facility] Comment on above: Order Comment: Speci men Type: BLOOD SPECIMEN Ordering Facility: [facility] Address: [address] [place] [address] Performed By: #### 1 1565-9, 89560-8, 71938-3, 61681-9, 91671-3, 53203-3, 88766-1 #### [facility] CLIA [id number] [address] [place] [address] [place] Hydroxyproline [Moles/Vol] 10 umol/L Normal 0-53 [facility] Comment on above: Order Comment: Speci men Type: BLOOD SPECIMEN Ordering Facility: [facility] Address: [address] [place] [address] Performed By: #### 1 1565-9, 25737-9, 36095-2, 88758-9, 80728-1, 88043-7, 19720-6 #### [facility] CLIA [id number] [address] [place] [address] [place] Isoleucine [Moles/Vol] 56 um/L Normal 30-108 [facility] Comment on above: Order Comment: Speci men Type: BLOOD SPECIMEN Ordering Facility: [facility] Address: [address] [place] [address] Performed By: #### 1 1565-9, 93616-6, 01657-2, 01102-3, 81198-3, 55620-1, 87256-7 #### [facility] CLIA [id number] [address] [place] [address] [place] Leucine [Moles/Vol] 111 umol/L Normal 72-[address] [facility] Comment on above: Order Comment: Speci men Type: BLOOD SPECIMEN Ordering Facility: [facility] Address: [address] [place] [address] Performed By: #### 1 1565-9, 58532-7, 57269-8, 56778-9, 18242-7, 36812-0, 81720-2 #### [facility] CLIA [id number] [address] [place] [address] [place] Lysine [Moles/Vol] 114 umol/L Low 116-296 [facility] Comment on above: Order Comment: Speci men Type: BLOOD SPECIMEN Ordering Facility: [facility] Address: [address] [place] [address] Performed By: #### 1 1565-9, 80612-6, 28226-8, 08995-5, 16280-8, 99319-0, 02484-2 #### [facility] CLIA [id number] [address] [place] [address] [place] Methionine [Moles/Vol] 24 umol/L Normal 10-42 [facility] Comment on above: Order Comment: Speci men Type: BLOOD SPECIMEN Ordering Facility: [facility] Address: [address] [place] [address] [place] [address] Performed By: #### 1 1565-9, 20007-2, 79728-7, 99740-0, 97690-6, 08009-3, 35547-1 #### [facility] CLIA [id number] [address] [place] [address] [place] Ornithine [Moles/Vol] 37 umol/L Low 48-195 [facility] Comment on above: Order Comment: Speci men Type: BLOOD SPECIMEN Ordering Facility: [facility] Address: [address] [place] [address] Performed By: #### 1 1565-9, 75913-8, 97162-8, 68421-9, 22215-6, 34751-8, 83799-7 #### [facility] CLIA [id number] [address] [place] [address] [place] Phenylalanine [Moles/Vol] 52 umol/L Normal 35-85 [facility] Comment on above: Order Comment: Speci men Type: BLOOD SPECIMEN Ordering Facility: [facility] Address: [address] [place] [address] [place] [address] Performed By: #### 1 1565-9, 09905-8, 22454-8, 39584-0, 82531-3, 40941-3, 24029-6 #### [facility] CLIA [id number] [address] [place] [address] [place] Proline [Moles/Vol] 132 umol/L Normal 97-[address] [facility] Comment on above: Order Comment: Speci men Type: BLOOD SPECIMEN Ordering Facility: [facility] Address: [address] [place] [address] [address] Performed By: #### 1 1565-9, 68841-2, 02681-9, 52628-1, 33362-1, 81780-3, 28289-1 #### [facility] CLIA [id number] [address] [place] [facility] Sarcosine [Moles/Vol] <1 High <=0 [facility] Comment on above: Order Comment: Speci men Type: BLOOD SPECIMEN Ordering Facility: [facility] Address: [address] [place] [address] Performed By: #### 1 1565-9, 03012-0, 06251-4, 23710-7, 32053-4, 90295-6, 91918-7 #### [facility] CLIA [id number] [address] [place] [address] [place] Serine [Moles/Vol] 133 umol/L Normal 58-181 [facility] Comment on above: Order Comment: Speci men Type: BLOOD SPECIMEN Ordering Facility: [facility] Address: [address] [place] [address] Performed By: #### 1 1565-9, 60809-6, 59782-2, 52645-3, 72046-6, 71831-7, 38593-8 #### [facility] CLIA [id number] [address] [place] [address] [place] Taurine [Moles/Vol] 57 umol/L Normal 54-[address] [facility] Comment on above: Order Comment: Speci men Type: BLOOD SPECIMEN Ordering Facility: [facility] Address: [address] [place] [address] Performed By: #### 1 1565-9, 07334-5, 20467-2, 23660-3, 62006-2, 05451-7, 75544-8 #### [facility] CLIA [id number] [address] [place] [address] [place] Threonine [Moles/Vol] 105 umol/L Normal 60-225 [facility] Comment on above: Order Comment: Speci men Type: BLOOD SPECIMEN Ordering Facility: [facility] Address: [address] [place] [address] Performed By: #### 1 1565-9, 69531-7, 11554-6, 04151-0, 52098-7, 84599-4, 45816-3 #### [facility] CLIA [id number] [address] [place] [address] [place] Tyrosine [Moles/Vol] 62 umol/L Normal 34-112 [facility] Comment on above: Order Comment: Speci men Type: BLOOD SPECIMEN Ordering Facility: [facility] Address: [address] [place] [address] Performed By: #### 1 1565-9, 16143-0, 17162-9, 28183-0, 24800-6, 45734-3, 70526-6 #### [facility] CLIA [id number] [address] [place] [address] [place] Valine [Moles/Vol] 211 umol/L Normal 119-336 [facility] Comment on above: Order Comment: Speci men Type: BLOOD SPECIMEN Ordering Facility: [facility] Address: [address] [place] [address] Performed By: #### 1 1565-9, 69219-0, 47534-2, 07698-8, 59820-4, 33618-3, 67098-1 #### [facility] CLIA [id number] [address] [place] [address] [place] AMINO ACIDS, URINE W/CONSULT on 06-27-2021 Alanine/Creatinine (U) [Ratio] 185 um/g Cr Low 240-670 [facility] Comment on above: Order Comment: Speci men Type: BLOOD SPECIMEN Ordering Facility: [facility] Address: [address] [place], [place] [address] Performed By: #### 1 1565-9, 72690-5, 67154-5, 10585-5, 84704-2, 52862-2, 30052-2 #### [facility] CLIA [id number] [address] [place] [address] [place] Alpha aminoadipate/Creatinine (U) [Ratio] 9 um/g Cr Low 40-110 [facility] Comment on above: Order Comment: Speci men Type: BLOOD SPECIMEN Ordering Facility: [facility] Address: [address] [place], [place] [id number] Performed By: #### 1 1565-9, 85742-9, 03852-8, 05848-1, 90820-0, 34973-7, 46116-8 #### [facility] CLIA [id number] [address] [place] [address] [place] Amino acid pattern (U) [Interp] Normal [facility] Comment on above: Order Comment: [facility] Type: BLOOD SPECIMEN Ordering Facility: [facility] Address: [address] [place] [address] Result Comment: This urine amino acid analysis shows no significant abnormalities. Reference intervals from Francis E, Linda MG, Alicia HUANG, and Denny DK: Biochemical Genetics: A Laboratory Manual, Copyright 1989 by [employer] Reference intervals not established for some amino acids. This test was developed and its performance characteristics determined by [facility] [place] ([facility]). It has not been cleared or approved by the FDA. -[facility] is regulated under CLIA as qualified to perform high complexity testing. This test is used for clinical purposes. It should not be regarded as investigational or for research. Performed By: #### 1 1565-9, 05978-8, 00735-7, 97571-5, 20321-4, 75762-8, 99371-8 #### [facility] CLIA [id number] [address] [place] [address] [place] Arginine/Creatinine (U) [Ratio] 9 um/g Cr Low 10-90 [facility] Comment on above: Order Comment: Speci men Type: BLOOD SPECIMEN Ordering Facility: [facility] Address: [address] [place], [place] [id number] Performed By: #### 1 1565-9, 69553-8, 77815-5, 29018-2, 83213-8, 49083-5, 05520-0 #### [facility] CLIA [id number] [address] [place] [address] [place] Asparagine/Creatinine (U) [Ratio] 85 um/g Cr Low 99-470 [facility] Comment on above: Order Comment: Speci men Type: BLOOD SPECIMEN Ordering Facility: [facility] Address: [address] [place] [address] Performed By: #### 1 1565-9, 87328-6, 97059-7, 46430-9, 32814-4, 40559-3, 13554-8 #### [facility] CLIA [id number] [address] [place] [address] [place] Aspartate/Creatinine (U) [Ratio] 37 um/g Cr Low 60-240 [facility] Comment on above: Order Comment: Speci men Type: BLOOD SPECIMEN Ordering Facility: [facility] Address: [address] [place] [address] Performed By: #### 1 1565-9, 00633-1, 32977-2, 97575-2, 78461-9, 17908-9, 48295-6 #### [facility] CLIA [id number] [address] [place] [address] [place] Citrulline/Creatinine (U) [Ratio] 9 um/g Cr Normal 8-50 [facility] Comment on above: Order Comment: Speci men Type: BLOOD SPECIMEN Ordering Facility: [facility] Address: [address] [place] [address] Performed By: #### 1 1565-9, 51215-1, 72516-6, 43606-8, 87415-6, 42425-3, 73530-4 #### [facility] CLIA [id number] [address] [place] [address] [place] Cystine/Creatinine (U) [Molar ratio] 26 um/g Cr Low 43-210 [facility] Comment on above: Order Comment: Speci men Type: BLOOD SPECIMEN Ordering Facility: [facility] Address: [address] [place] [address] Performed By: #### 1 1565-9, 71915-7, 53540-7, 29152-9, 64685-1, 69807-6, 01574-6 #### [facility] CLIA [id number] [address] [place] [address] [place] Glutamate/Creatinine (U) [Ratio] 15 um/g Cr Low 39-330 [facility] Comment on above: Order Comment: Speci men Type: BLOOD SPECIMEN Ordering Facility: [facility] Address: [address] [place] [address] Performed By: #### 1 1565-9, 93782-2, 38661-1, 75172-6, 35415-0, 91844-9, 69133-5 #### [facility] CLIA [id number] [address] [place] [address] [place] Glutamine/Creatinine (U) [Ratio] 268 um/g Cr Normal 190-510 [facility] Comment on above: Order Comment: Speci men Type: BLOOD SPECIMEN Ordering Facility: [facility] Address: [address] [place] [address] Performed By: #### 1 1565-9, 62167-4, 40985-5, 54212-9, 38823-7, 39351-9, 94788-7 #### [facility] CLIA [id number] [address] [place] [address] [place] Glycine/Creatinine (U) [Ratio] 1078 um/g Cr Normal 730-4,160 [facility] Comment on above: Order Comment: Speci men Type: BLOOD SPECIMEN Ordering Facility: [facility] Address: [address] [place] [address] Performed By: #### 1 1565-9, 71942-2, 92900-1, 66662-8, 19711-8, 08692-8, 35315-4 #### [facility] CLIA [id number] [address] [place] [address] [place] Histidine/Creatinine (U) [Ratio] 226 um/g Cr Low 460-1,430 [facility] Comment on above: Order Comment: Speci men Type: BLOOD SPECIMEN Ordering Facility: [facility] Address: [address] [place] [address] Performed By: #### 1 1565-9, 26905-2, 51544-8, 80816-1, 66244-1, 40104-3, 26281-9 #### [facility] CLIA [id number] [address] [place] [address] [place] Hydroxylysine/Creatinin e (U) [Ratio] 5 um/g Cr Low 40-90 [facility] Comment on above: Order Comment: Speci men Type: BLOOD SPECIMEN Ordering Facility: [facility] Address: [address] [place] [address] Performed By: #### 1 1565-9, 56280-5, 78337-3, 50103-1, 62909-4, 90675-0, 60766-3 #### [facility] CLIA [id number] [address] [place] [address] [place] Hydroxyproline/Creatini ne (U) [Ratio] <5 Normal 0-26 [facility] Comment on above: Order Comment: Speci men Type: BLOOD SPECIMEN Ordering Facility: [facility] Address: [address] [place] [address] Performed By: #### 1 1565-9, 35746-2, 63235-9, 75399-0, 70953-2, 73853-7, 69652-4 #### [facility] CLIA [id number] [address] [place] [address] [place] Isoleucine/Creatinine (U) [Ratio] 5 um/g Cr Low 16-180 [facility] Comment on above: Order Comment: Speci men Type: BLOOD SPECIMEN Ordering Facility: [facility] Address: [address] [place] [address] Performed By: #### 1 1565-9, 52571-8, 74809-7, 63397-7, 84150-9, 25190-0, 64529-3 #### [facility] CLIA [id number] [address] [place] [address] [place] Leucine/Creatinine (U) [Ratio] 33 um/g Cr Normal 30-150 [facility] Comment on above: Order Comment: Speci men Type: BLOOD SPECIMEN Ordering Facility: [facility] Address: [address] [place] [address] Performed By: #### 1 1565-9, 97596-7, 41342-1, 50965-7, 13203-3, 13231-3, 76248-1 #### [facility] CLIA [id number] [address] [place] [address] [place] Lysine/Creatinine (U) [Ratio] 64 um/g Cr Low 145-634 [facility] Comment on above: Order Comment: Speci men Type: BLOOD SPECIMEN Ordering Facility: [facility] Address: [address] [place] [address] Performed By: #### 1 1565-9, 32530-7, 07809-4, 98738-8, 68126-9, 71542-9, 46638-9 #### [facility] CLIA [id number] [address] [place] [address] [place] Methionine/Creatinine (U) [Ratio] 4 um/g Cr Low 38-210 [facility] Comment on above: Order Comment: Speci men Type: BLOOD SPECIMEN Ordering Facility: [facility] Address: [address] [place] [address] Performed By: #### 1 1565-9, 57110-9, 65620-6, 31716-1, 38042-7, 75400-1, 65897-9 #### [facility] CLIA [id number] [address] [place] [address] [place] Ornithine/Creatinine (U) [Ratio] 5 um/g Cr Low 20-80 [facility] Comment on above: Order Comment: Speci men Type: BLOOD SPECIMEN Ordering Facility: [facility] Address: [address] [place] [address] Performed By: #### 1 1565-9, 56170-3, 83512-7, 28804-5, 28564-8, 63294-5, 72683-3 #### [facility] CLIA [id number] [address] [place] [address] [place] Phenylalanine/Creatinin e (U) [Ratio] 35 um/g Cr Low 51-250 [facility] Comment on above: Order Comment: Speci men Type: BLOOD SPECIMEN Ordering Facility: [facility] Address: [address] [place] [address] Performed By: #### 1 1565-9, 67940-7, 62409-3, 77780-3, 12070-7, 64706-9, 58344-1 #### [facility] CLIA [id number] [address] [place] [address] [place] Proline/Creatinine (U) [Ratio] <5 High <=0 [facility] Comment on above: Order Comment: Speci men Type: BLOOD SPECIMEN Ordering Facility: [facility] Address: [address] [place] [address] Performed By: #### 1 1565-9, 81517-9, 65235-2, 52248-4, 94963-7, 38601-1, 40012-6 #### [facility] CLIA [id number] [address] [place] [address] [place] REVIEW, URINE AMINO ACIDS Reviewed by Win Durham MD, Ph.D ([id number]) [facility] Comment on above: Order Comment: Speci men Type: BLOOD SPECIMEN Ordering Facility: [facility] Address: [address] [place] [address] Performed By: #### 1 1565-9, 47372-8, 00382-8, 56943-2, 02368-5, 90588-0, 14244-4 #### [facility] CLIA [id number] [address] [place] [address] [place] Sarcosine/Creatinine (U) [Ratio] 24 um/g Cr Normal 0-80 [facility] Comment on above: Order Comment: Speci men Type: BLOOD SPECIMEN Ordering Facility: [facility] Address: [address] [facility] [address] Performed By: #### 1 1565-9, 12792-6, 43115-8, 80576-4, 59286-0, 86537-5, 19795-3 #### [facility] CLIA [id number] [address] [place] [address] [place] Serine/Creatinine (U) [Ratio] 344 um/g Cr Normal 240-670 [facility] Comment on above: Order Comment: Speci men Type: BLOOD SPECIMEN Ordering Facility: [facility] Address: [address] [facility] [place] [address] Performed By: #### 1 1565-9, 37501-5, 05845-9, 00122-0, 83587-1, 75063-5, 83302-6 #### [facility] CLIA [id number] [address] [place] [address] [place] Taurine/Creatinine (U) [Ratio] 840 um/g Cr Normal 380-1,850 [facility] Comment on above: Order Comment: Speci men Type: BLOOD SPECIMEN Ordering Facility: [facility] Address: [address] Performed By: #### 1 1565-9, 73179-8, 12777-3, 66752-0, 31244-6, 71722-3, 02269-2 #### [facility] CLIA [id number] [address] [place] Threonine/Creatinine (U) [Ratio] 89 um/g Cr Low 130-370 [facility] Comment on above: Order Comment: Speci men Type: BLOOD SPECIMEN Ordering Facility: [facility] Address: [address] [place] [address] Performed By: #### 1 1565-9, 56894-0, 09430-8, 44341-5, 36413-9, 28177-1, 08138-5 #### [facility] CLIA [id number] [address] [place] [address] [place] Tyrosine/Creatinine (U) [Ratio] 42 um/g Cr Low 90-290 [facility] Comment on above: Order Comment: Speci men Type: BLOOD SPECIMEN Ordering Facility: [facility] Address: [address] [place] [address] Performed By: #### 1 1565-9, 74362-2, 17956-9, 41696-1, 02448-7, 84739-7, 12243-2 #### [facility] CLIA [id number] [address] [place] [address] [place] Valine/Creatinine (U) [Ratio] 47 um/g Cr Normal 27-260 [facility] Comment on above: Order Comment: Speci men Type: BLOOD SPECIMEN Ordering Facility: [facility] Address: [address] [place] [address] Performed By: #### 1 1565-9, 65423-0, 68169-4, 30939-2, 67231-8, 09425-3, 16193-9 #### [facility] CLIA [id number] [address] [place] [address] [place] SMOOTH BY IFA WITH REFLEXon Nuclear Ab IF (S) [Titer] Negative Normal Negative [facility] Comment on above: Order Comment: Speci men Type: BLOOD SPECIMEN Ordering Facility: [facility] Address: [address] [place] [address] Result Comment: Anti -nuclear antibody test is used as an aid in diagnosis of systemic autoimmune diseases. Where positive and clinically warranted, follow-up using disease-specific testing is recommended. Low positive titers are not uncommon with advanced age, certain chronic infections, and malignancies among others. Test methodology: Indirect fluorescence immunoassay (IFA) using HEp-2 cells. Performed By: #### 1 1565-9, 71084-6, 84867-3, 55304-9, 12796-0, 16800-3, 48721-0 #### [facility] CLIA [id number] [address] [place] [address] [place] CK CREATINE KINASEon 022 CK [Catalytic activity/Vol] 34 U/L Low 42-196 [facility] Comment on above: Order Comment: Specjustin eller Type: BLOOD SPECIMEN Ordering Facility: [facility] Address: [address] [place] [address] Performed By: #### 2 4323-8, CK #### [facility] CLIA [id number] [address] [place] [address] OF [facility] Centromere Ab IF Ql (S)on Centromere Ab Qn (S) <0.2 Normal <1.0 [facility] Comment on above: Order Comment: Jese eller Type: BLOOD SPECIMEN Ordering Facility: [facility] Address: [address] [place] [address] Result Comment: Anti -centromere antibody is used as in aid in diagnosis of systemic sclerosis. Clinical correlation is required. Test Methodology: Multiplex flow immunoassay. Performed By: #### 1 1565-9, 53705-3, 68468-5, 76794-7, 69459-3, 91981-5, 21739-1 #### [facility] CLIA [id number] [address] [place] [address] [place] CENTROMERE AB QUAL Negative Normal Negative [facility] Comment on above: Order Comment: Jese eller Type: BLOOD SPECIMEN Ordering Facility: [facility] Address: [address] [place] [address] Performed By: #### 1 1565-9, 94985-5, 98972-6, 94137-3, 59431-9, 82182-1, 98066-6 #### [facility] CLIA [id number] [address] [place] [address] Chromatin Ab Qnon 06-27-2021 CHROMATIN AB QUAL Negative Normal Negative [facility] Comment on above: Order Comment: Speci men Type: BLOOD SPECIMEN Ordering Facility: [facility] Address: [address] [place] [address] Performed By: #### 1 1565-9, 40984-3, 42487-0, 52747-1, 45585-5, 44909-5, 76128-3 #### [facility] CLIA [id number] [address] [place] [address] [place] Chromatin Ab SerPl-aCncon Chromatin Ab Qn <0.2 Normal <1.0 [facility] Comment on above: Order Comment: Speci men Type: BLOOD SPECIMEN Ordering Facility: [facility] Address: [address] [place] [address] Result Comment: Test Methodology: Multiplex flow immunoassay. Performed By: #### 1 1565-9, 75316-1, 74012-8, 88834-4, 17696-6, 08457-1, 44765-2 #### [facility] CLIA [id number] [address] [place] [address] [place] Comprehensive metabolic 2000 panelon 06-27-2021 Albumin [Mass/Vol] 4.4 g/dL Normal 3.9-4.9 [facility] Comment on above: Order Comment: Speci men Type: BLOOD SPECIMEN Ordering Facility: [facility] Address: [address] [place] [address] Performed By: #### 2 4323-8, CK #### [facility] CLIA [id number] [address] [place] [address] [place] ALP [Catalytic activity/Vol] 62 U/L Normal 45-87 [facility] Comment on above: Order Comment: Speci men Type: BLOOD SPECIMEN Ordering Facility: [facility] Address: [address] [place] [address] Performed By: #### 2 4323-8, CK #### [facility] CLIA [id number] [address] STATES OF [facility] ALT [Catalytic activity/Vol] 20 U/L Normal 7-38 [facility] Comment on above: Order Comment: Speci men Type: BLOOD SPECIMEN Ordering Facility: [facility] Address: [address] [place] [address] Performed By: #### 2 4323-8, CK #### [facility] CLIA [id number] [address] [place] [address] [place] Anion gap [Moles/Vol] 11 mmol/L Normal 9-18 [facility] Comment on above: Order Comment: Speci men Type: BLOOD SPECIMEN Ordering Facility: [facility] Address: [address] [place] [address] Performed By: #### 2 4323-8, CK #### [facility] CLIA [id number] [address] [place] AST [Catalytic activity/Vol] 23 U/L Normal 13-35 [facility] Comment on above: Order Comment: Speci men Type: BLOOD SPECIMEN Ordering Facility: [facility] Address: [address] [place] [address] Performed By: #### 2 4323-8, CK #### [facility] CLIA [id number] [address] [place] [address] [place] Bilirubin [Mass/Vol] 0.4 mg/dL Normal 0.2-1.3 [facility] Comment on above: Order Comment: Speci men Type: BLOOD SPECIMEN Ordering Facility: [facility] Address: [address] [place] [address] Performed By: #### 2 4323-8, CK #### [facility] CLIA [id number] [address] [place] Calcium [Mass/Vol] 9.5 mg/dL Normal 8.5-10.2 [facility] Comment on above: Order Comment: Speci men Type: BLOOD SPECIMEN Ordering Facility: [facility] Address: [address] [place] [address] Performed By: #### 2 4323-8, CK #### [facility] CLIA [id number] [address] [place] [address] [place] [facility] Chloride [Moles/Vol] 105 mmol/L Normal 97-105 [facility] Comment on above: Order Comment: Speci men Type: BLOOD SPECIMEN Ordering Facility: [facility] Address: [address] [place] [address] Performed By: #### 2 4323-8, CK #### [facility] CLIA [id number] [address] [place] [address] [place] CO2 [Moles/Vol] 22 mmol/L Normal 22-30 [facility] Comment on above: Order Comment: Speci men Type: BLOOD SPECIMEN Ordering Facility: [facility] Address: [address] [place] [address] Performed By: #### 2 4323-8, CK #### [facility] CLIA [id number] [address] [place] [address] [place] Creatinine [Mass/Vol] 0.71 mg/dL Normal 0.58-0.96 [facility] Comment on above: Order Comment: Speci men Type: BLOOD SPECIMEN Ordering Facility: [facility] Address: [address] [place] [address] Performed By: #### 2 4323-8, CK #### [facility] CLIA [id number] [address] ESTIMATED GLOMERULAR FILTRATION RATE 127 mL/min/1.73m??? Normal >=60 [facility] Comment on above: Order Comment: Speci men Type: BLOOD SPECIMEN Ordering Facility: [facility] Address: [address] [place] [address] Result Comment: Linda mated Glomerular Filtration Rate (eGFR) is calculated using the 2020 CKD-EPI creatinine equation. This equation utilizes serum creatinine, sex, and age as parameters. The creatinine assay has traceable calibration to isotope dilution-mass spectrometry. Refer to KDIGO guidelines for clinical interpretation. In patients with unstable renal function, e.g. those with acute kidney injury, the eGFR may not accurately reflect actual GFR. Performed By: #### 2 4323-8, CK #### [facility] CLIA [id number] [address] [place] [address] [place] Glucose [Mass/Vol] 89 mg/dL Normal 74-99 [facility] Comment on above: Order Comment: Jese eller Type: BLOOD SPECIMEN Ordering Facility: [facility] Address: [address] [place] [address] Result Comment: The [place] Diabetes Association (ADA) provides guidance for cutoff values for fasting glucose and random glucose. The ADA defines fasting as no caloric intake for at least 8 hours. Fasting plasma glucose results between 100 to 125 mg/dL indicate increased risk for diabetes (prediabetes). Fasting plasma glucose results greater than or equal to 126 mg/dL meet the criteria for diagnosis of diabetes. In the absence of unequivocal hyperglycemia, results should be confirmed by repeat testing. In a patient with classic symptoms of hyperglycemia or hyperglycemic crisis, random plasma glucose results greater than or equal to 200 mg/dL meet the criteria for diagnosis of diabetes. Reference: Standards of Medical Care in Diabetes 2016, [place] [employer] Association. Diabetes Care. 2016.39(Suppl 1). Performed By: #### 2 4323-8, CK #### [facility] CLIA [id number] [address] [place] [address] [place] Potassium [Moles/Vol] 4.2 mmol/L Normal 3.7-5.1 [facility] Comment on above: Order Comment: Jese eller Type: BLOOD SPECIMEN Ordering Facility: [facility] Address: [address] [place] [address] Performed By: #### 2 4323-8, CK #### [facility] CLIA [id number] [address] [place] [address] [place] Protein [Mass/Vol] 6.9 g/dL Normal 6.3-8.0 [facility] Comment on above: Order Comment: Jese eller Type: BLOOD SPECIMEN Ordering Facility: [facility] Address: [address] [place] [address] Performed By: #### 2 4323-8, CK #### [facility] CLIA [id number] [address] Sodium [Moles/Vol] 138 mmol/L Normal 136-144 [facility] Comment on above: Order Comment: Speci men Type: BLOOD SPECIMEN Ordering Facility: [facility] Address: [address] [place] [address] Performed By: #### 2 4323-8, CK #### [facility] CLIA [id number] [address] [place] Urea nitrogen [Mass/Vol] 12 mg/dL Normal 7-21 [facility] Comment on above: Order Comment: Speci men Type: BLOOD SPECIMEN Ordering Facility: [facility] Address: [address] [place] [address] Performed By: #### 2 4323-8, CK #### [facility] CLIA [id number] [address] [place] TERRENCE Jo1 Ab Ser-aCncon 2021 Alley-1 extractable nuclear Ab Qn (S) <0.2 Normal <1.0 [facility] Comment on above: Order Comment: Speci men Type: BLOOD SPECIMEN Ordering Facility: [facility] Address: [address] [place] [address] Performed By: #### 1 1565-9, 56581-9, 01149-2, 48127-1, 21533-1, 45048-7, 31242-4 #### [facility] CLIA [id number] [address] [place] [id number] [employer] Ab Ser-aCncon 2021 Ribonucleoprotein extractable nuclear Ab Qn (S) <0.2 Normal <1.0 [facility] Comment on above: Order Comment: Speci men Type: BLOOD SPECIMEN Ordering Facility: [facility] Address: [address] [place] [address] Performed By: #### 1 1565-9, 99361-7, 67462-0, 58968-0, 83065-3, 62540-9, 89282-4 #### [facility] CLIA [id number] [address] [place] [address] [place] Ribonucleoprotein extractable nuclear Ab Qn (S) 0.2 AI Normal <1.0 [facility] Comment on above: Order Comment: Speci men Type: BLOOD SPECIMEN Ordering Facility: [facility] Address: [address] [place] [address] Performed By: #### 1 1565-9, 98209-4, 99149-6, 53120-9, 44528-4, 48863-6, 18221-5 #### [facility] CLIA [id number] [address] [place] [address] [place] TERRENCE SM IgG Ser-aCncon 2021 Carpenter extractable nuclear IgG Qn (S) <0.2 Normal <1.0 [facility] Comment on above: Order Comment: Speci men Type: BLOOD SPECIMEN Ordering Facility: [facility] Address: [address] [place] [address] Performed By: #### 1 1565-9, 08067-0, 95201-1, 80985-4, 16005-2, 27910-5, 31455-1 #### [facility] CLIA [id number] [address] [place] [address] [place] TERRENCE SS-A Ab Ser-aCncon 06-27 Sjogrens syndrome-A extractable nuclear Ab Qn (S) <0.2 Normal <1.0 [facility] Comment on above: Order Comment: Speci men Type: BLOOD SPECIMEN Ordering Facility: [facility] Address: [address] [place] [address] Result Comment: Test Methodology: Multiplex flow immunoassay. Performed By: #### 1 1565-9, 34917-8, 14261-9, 96339-8, 02090-5, 04479-2, 42282-6 #### [facility] CLIA [id number] [address] [place] [address] [place] TERRENCE SS-B Ab Ser-aCncon 06-27 Sjogrens syndrome-B extractable nuclear Ab Qn (S) <0.2 Normal <1.0 [facility] Comment on above: Order Comment: Jese eller Type: BLOOD SPECIMEN Ordering Facility: [facility] Address: [address] [place] [address] Result Comment: Anti -SSB (anti-La) antibody is used as an aid in diagnosis of a variety of systemic autoimmune diseases, especially for Sjogren's syndrome and systemic lupus erythematosus. Clinical correlation is required. Test Methodology: Multiplex flow immunoassay. Performed By: #### 1 1565-9, 93275-3, 32846-3, 09927-1, 08121-9, 87412-9, 70856-2 #### [facility] CLIA [id number] [address] [place] [address] [place] Alley-1 extractable nuclear Ab Qn (S)on 06-27-2021 ALLEY 1 ANTIBODY QUAL Negative Normal Negative [facility] Comment on above: Order Comment: Jese eller Type: BLOOD SPECIMEN Ordering Facility: [facility] Address: [address] [place] [address] Result Comment: Anti -ALLEY-1 antibody is used as an aid in diagnosis of polymyositis and dermatomyositis especially with pulmonary involvement. A negative result cannot rule out polymyositis or dermatomyositis. Clinical correlation is required. Test Methodology: Multiplex flow immunoassay. Performed By: #### 1 1565-9, 94256-0, 14247-6, 06939-3, 25123-7, 44356-9, 11183-5 #### [facility] CLIA [id number] [address] [place] [address] [place] MYASTHENIA GRAVIS Reynadlo 06-27 ACH RECEPTOR (MUSCLE) BIND AB (MYGRAV) View results in Scanned Documents link when available. Normal [facility] Comment on above: Order Comment: Chii daphnie Type: BLOOD SPECIMEN Ordering Facility: [facility] Address: [address] [place] [address] Performed By: #### 1 1565-9, 35463-6, 82767-8, 89637-5, 28210-1, 30092-4, 53555-1 #### [facility] CLIA [id number] [facility] [place] [id number] [place] MG LAMBERT/EATON INTERP View results in Scanned Documents link when available. [facility] Comment on above: Order Comment: Speci men Type: BLOOD SPECIMEN Ordering Facility: [facility] Address: [address] [place], [place] [address] Performed By: #### 1 1565-9, 24045-0, 86568-3, 85716-8, 51844-9, 42667-5, 12548-8 #### [facility] CLIA [id number] [address] [place] [address] [place] MUSCLE MODULATING AB View results in Scanned Documents link when available. [facility] Comment on above: Order Comment: Speci men Type: BLOOD SPECIMEN Ordering Facility: [facility] Address: [address] [place] [address] Performed By: #### 1 1565-9, 76744-4, 45308-9, 85099-7, 37730-6, 14403-2, 78358-2 #### [facility] CLIA [id number] [address] [place] [address] [place] STRIATIONAL ABS (MYGRAV) View results in Scanned Documents link when available. [facility] Comment on above: Order Comment: Speci men Type: BLOOD SPECIMEN Ordering Facility: [facility] Address: [address] [place] [address] Performed By: #### 1 1565-9, 72922-9, 20388-0, 81682-2, 84618-4, 00727-7, 06297-1 #### [facility] CLIA [id number] [address] [id number] [address] [place] ORGANIC ACIDS UR, QUANT W/CO NSULTon 06-27-2021 2-Hydroxyglutarate/Crea tinine (U) [Molar ratio] 2.5 umol/mmolCr Normal 0.6-17.7 [facility] Comment on above: Order Comment: Speci men Type: BLOOD SPECIMEN Ordering Facility: [facility] Address: [address] [place] [address] Performed By: #### 1 1565-9, 95549-5, 34818-2, 58903-4, 71583-8, 00122-3, 60030-2 #### [facility] CLIA [id number] [address] [place] [address] [place] 2-Hydroxyisovalerate/Cr eatinine (U) [Molar ratio] <0.1 Normal 0.0-0.1 [facility] Comment on above: Order Comment: Speci men Type: BLOOD SPECIMEN Ordering Facility: [facility] Address: [address] [place] [address] Performed By: #### 1 1565-9, 21316-5, 20055-0, 93230-7, 36856-8, 51778-5, 84665-0 #### [facility] CLIA [id number] [address] [place] [address] [place] 3-Gubfcu-0-hydroxybutyr ate (C5-OH)/Creatinine (U) [Molar ratio] <0.6 Normal 0.0-1.3 [facility] Comment on above: Order Comment: Speci men Type: BLOOD SPECIMEN Ordering Facility: [facility] Address: [address] [place] [address] Performed By: #### 1 1565-9, 78600-6, 81250-5, 70053-3, 22946-6, 75001-2, 05451-8 #### [facility] CLIA [id number] [address] [place] [address] [place] 2-Methylbutyrylglycine/ Creatinine (U) [Molar ratio] <0.1 Normal 0.0-0.4 [facility] Comment on above: Order Comment: Speci men Type: BLOOD SPECIMEN Ordering Facility: [facility] Address: [address] [place] [address] Performed By: #### 1 1565-9, 45784-7, 92226-0, 71200-6, 40522-5, 65379-6, 75830-9 #### [facility] CLIA [id number] [address] [place] [address] [place] 2-Methylcitrate/Creatin ine (U) [Molar ratio] 4.7 umol/mmolCr Normal 1.0-13.9 [facility] Comment on above: Order Comment: Speci men Type: BLOOD SPECIMEN Ordering Facility: [facility] Address: [address] [place] [address] Performed By: #### 1 1565-9, 82750-8, 79422-6, 97602-8, 13423-5, 70727-4, 42482-8 #### [facility] CLIA [id number] [address] [place] [address] [place] 2-Oxoadipate/Creatinine (U) [Molar ratio] <1.6 Normal 0.0-3.3 [facility] Comment on above: Order Comment: Speci men Type: BLOOD SPECIMEN Ordering Facility: [facility] Address: [address] [place] [address] Performed By: #### 1 1565-9, 13105-0, 74306-8, 50045-9, 37849-5, 10401-8, 92328-0 #### [facility] CLIA [id number] [address] [place] [address] [place] 3-Hydroxyglutarate/Crea tinine (U) [Molar ratio] 0.0 umol/mmolCr Normal 0.0-0.7 [facility] Comment on above: Order Comment: Speci men Type: BLOOD SPECIMEN Ordering Facility: [facility] Address: [address] [place] [address] Performed By: #### 1 1565-9, 97518-1, 15471-7, 96332-4, 13612-9, 51476-9, 38202-9 #### [facility] CLIA [id number] [address] [place] [address] [place] 3-Hydroxyisovalerate/Cr eatinine (U) [Molar ratio] 48.1 umol/mmolCr High 2.1-27.3 [facility] Comment on above: Order Comment: Speci men Type: BLOOD SPECIMEN Ordering Facility: [facility] Address: [address] [place] [address] Performed By: #### 1 1565-9, 70873-8, 34901-1, 45949-6, 46126-3, 09935-3, 94769-2 #### [facility] CLIA [id number] [address] [place] [address] [place] 3-Methylcrotonylglycine /Creatinine (U) [Molar ratio] <0.3 Normal <0.3 [facility] Comment on above: Order Comment: Speci men Type: BLOOD SPECIMEN Ordering Facility: [facility] Address: [address] [place] [address] Performed By: #### 1 1565-9, 28184-5, 19102-4, 72786-6, 73509-9, 09823-1, 28243-3 #### [facility] CLIA [id number] [address] [place] [address] [place] 3-Methylglutaconate/Cre atinine (U) [Molar ratio] 1.9 umol/mmolCr Normal 0.0-2.0 [facility] Comment on above: Order Comment: Speci men Type: BLOOD SPECIMEN Ordering Facility: [facility] Address: [address] [place] [address] Performed By: #### 1 1565-9, 81360-9, 75671-9, 37469-5, 70798-3, 79159-2, 78380-4 #### [facility] CLIA [id number] [address] [place] [address] [place] 3-Methylglutarate/Creat inine (U) [Molar ratio] 0.7 umol/mmolCr High 0.0-0.6 [facility] Comment on above: Order Comment: Speci men Type: BLOOD SPECIMEN Ordering Facility: [facility] Address: [address] [place] [address] Performed By: #### 1 1565-9, 86979-9, 90203-3, 86585-1, 62543-5, 43244-2, 46786-8 #### [facility] CLIA [id number] [address] [place] [address] [place] 4-Hydroxyphenylacetate/ Creatinine (U) [Molar ratio] 28.5 umol/mmolCr Normal 5.7-147.5 [facility] Comment on above: Order Comment: Speci men Type: BLOOD SPECIMEN Ordering Facility: [facility] Address: [address] [place] [address] Performed By: #### 1 1565-9, 95025-4, 32947-9, 68926-6, 79467-5, 62959-6, 95118-7 #### [facility] CLIA [id number] [address] [place] [address] [place] 4-Hydroxyphenyllactate/ Creatinine (U) [Molar ratio] 4.4 umol/mmolCr Normal 1.3-23.0 [facility] Comment on above: Order Comment: Speci men Type: BLOOD SPECIMEN Ordering Facility: [facility] Address: [address] [place] [address] Performed By: #### 1 1565-9, 92709-3, 53605-5, 36687-3, 30766-0, 43357-8, 46108-4 #### [facility] CLIA [id number] [address] [place] [address] [place] 4-Hydroxyphenylpyruvate /Creatinine (U) [Molar ratio] 0.0 umol/mmolCr Normal <=0.0 [facility] Comment on above: Order Comment: Speci men Type: BLOOD SPECIMEN Ordering Facility: [facility] Address: [address] [place] [address] Performed By: #### 1 1565-9, 68198-1, 10418-3, 65295-4, 17368-4, 95697-4, 39292-0 #### [facility] CLIA [id number] [address] [place] [address] [place] 5-Oxoproline/Creatinine (U) [Molar ratio] 1.8 umol/mmolCr Normal 0.4-3.1 [facility] Comment on above: Order Comment: Speci men Type: BLOOD SPECIMEN Ordering Facility: [facility] Address: [address] [place] [address] Performed By: #### 1 1565-9, 18925-4, 41718-2, 71949-2, 29176-3, 79053-9, 99135-0 #### [facility] CLIA [id number] [address] [place] [address] [place] Acetoacetate/Creatinine (U) [Molar ratio] <0.9 High 0.0-0.5 [facility] Comment on above: Order Comment: Speci men Type: BLOOD SPECIMEN Ordering Facility: [facility] Address: [address] [place], [place] [address] Performed By: #### 1 1565-9, 50791-6, 05107-8, 38236-1, 41121-8, 58682-4, 38660-9 #### [facility] CLIA [id number] [address] [place] [address] [place] Aconitate/Creatinine (U) [Molar ratio] 17.5 umol/mmolCr Normal 8.5-109.6 [facility] Comment on above: Order Comment: Speci men Type: BLOOD SPECIMEN Ordering Facility: [facility] Address: [address] [place] [address] Performed By: #### 1 1565-9, 67925-0, 91779-9, 90035-7, 25494-9, 01691-0, 46524-6 #### [facility] CLIA [id number] [address] [place] [address] [place] Adipate/Creatinine (U) [Molar ratio] 2.8 umol/mmolCr Normal 0.3-9.2 [facility] Comment on above: Order Comment: Speci men Type: BLOOD SPECIMEN Ordering Facility: [facility] Address: [address] [place] [address] Performed By: #### 1 1565-9, 12913-1, 26600-4, 73540-1, 29068-0, 69191-7, 99191-1 #### [facility] CLIA [id number] [address] [place] [address] [place] Alpha hydroxybutyrate/Creatin ine (U) [Molar ratio] <1.0 Normal 0.0-2.7 [facility] Comment on above: Order Comment: Speci men Type: BLOOD SPECIMEN Ordering Facility: [facility] Address: [address] [place] [address] Performed By: #### 1 1565-9, 89621-9, 16788-8, 50231-0, 52444-2, 37219-1, 55143-5 #### [facility] CLIA [id number] [address] [place] [address] [place] Alpha ketoglutarate/Creatinin e (U) [Molar ratio] 32.0 umol/mmolCr Normal 0.2-42.7 [facility] Comment on above: Order Comment: Speci men Type: BLOOD SPECIMEN Ordering Facility: [facility] Address: [address] [place] [address] Performed By: #### 1 1565-9, 82462-5, 16541-9, 07244-1, 81798-8, 26459-2, 69662-5 #### [facility] CLIA [id number] [address] [place] [address] [place] Benzoate/Creatinine (U) [Molar ratio] <12.2 Normal 0.0-14.6 [facility] Comment on above: Order Comment: Speci men Type: BLOOD SPECIMEN Ordering Facility: [facility] Address: [address] [place] [address] Performed By: #### 1 1565-9, 24171-4, 10202-9, 46750-8, 16412-4, 03278-3, 32905-5 #### [facility] CLIA [id number] [address] [place] [address] [place] Beta hydroxybutyrate/Creatin ine (U) [Molar ratio] <1.6 Normal 0.1-2.6 [facility] Comment on above: Order Comment: Speci men Type: BLOOD SPECIMEN Ordering Facility: [facility] Address: [address] [place] [address] Performed By: #### 1 1565-9, 51365-6, 60485-3, 13594-7, 68633-7, 63877-8, 38780-0 #### [facility] CLIA [id number] [address] [place] [address] [place] Butyrylglycine/Creatini ne (U) [Molar ratio] 0.0 umol/mmolCr Normal 0.0-0.7 [facility] Comment on above: Order Comment: Speci men Type: BLOOD SPECIMEN Ordering Facility: [facility] Address: [address] [place] [address] Performed By: #### 1 1565-9, 59274-9, 26685-9, 30274-8, 51930-9, 57062-5, 87681-7 #### [facility] CLIA [id number] [address] [place] [address] [place] Creatinine (U) [Mass/Vol] 197.8 mg/dL Normal 42.2-237.9 [facility] Comment on above: Order Comment: Speci men Type: BLOOD SPECIMEN Ordering Facility: [facility] Address: [address] [place] [address] Performed By: #### 1 1565-9, 16736-3, 99989-2, 17739-6, 81268-9, 14803-1, 19411-2 #### [facility] CLIA [id number] [address] [place] [address] [place] Ethylmalonate/Creatinin e (U) [Molar ratio] 1.4 umol/mmolCr Normal 0.5-6.2 [facility] Comment on above: Order Comment: Speci men Type: BLOOD SPECIMEN Ordering Facility: [facility] Address: [address] [place] [address] Performed By: #### 1 1565-9, 66362-2, 01149-9, 45029-3, 35615-1, 21459-3, 43025-0 #### [facility] CLIA [id number] [address] [place] [address] [place] Fumarate/Creatinine (U) [Molar ratio] 1.1 umol/mmolCr Normal 0.3-2.6 [facility] Comment on above: Order Comment: Speci men Type: BLOOD SPECIMEN Ordering Facility: [facility] Address: [address] [place] [address] Performed By: #### 1 1565-9, 92554-2, 99233-8, 71084-0, 99211-6, 18841-8, 69969-1 #### [facility] CLIA [id number] [address] [place] [address] [place] Glutarate/Creatinine (U) [Molar ratio] 0.2 umol/mmolCr Normal 0.0-1.4 [facility] Comment on above: Order Comment: Speci men Type: BLOOD SPECIMEN Ordering Facility: [facility] Address: [address] [place] [address] Performed By: #### 1 1565-9, 43377-9, 85725-8, 91921-7, 84383-5, 59780-9, 18781-0 #### [facility] CLIA [id number] [address] [place] [address] [place] Hexanoylglycine/Creatin ine (U) [Molar ratio] <0.1 Normal 0.0-0.1 [facility] Comment on above: Order Comment: Speci men Type: BLOOD SPECIMEN Ordering Facility: [facility] Address: [address] [place] [address] Performed By: #### 1 1565-9, 37256-8, 91250-4, 96903-8, 57430-9, 32850-8, 90980-9 #### [facility] CLIA [id number] [address] [place] [address] [place] Isobutyrylglycine/Creat inine (U) [Molar ratio] <0.1 Normal 0.0-1.2 [facility] Comment on above: Order Comment: Speci men Type: BLOOD SPECIMEN Ordering Facility: [facility] Address: [address] [place] [address] Performed By: #### 1 1565-9, 93025-4, 93876-1, 76092-1, 22023-3, 49852-1, 89264-3 #### [facility] CLIA [id number] [address] [place] [address] [place] Isocitrate/Creatinine (U) [Molar ratio] 60.7 umol/mmolCr Normal 9.1-271.9 [facility] Comment on above: Order Comment: Speci men Type: BLOOD SPECIMEN Ordering Facility: [facility] Address: [address] [place] [address] Performed By: #### 1 1565-9, 92857-2, 99651-3, 14744-4, 10243-9, 42245-7, 50428-7 #### [facility] CLIA [id number] [address] [place] [address] [place] Lactate/Creatinine (U) [Molar ratio] 21.5 umol/mmolCr Normal 2.9-47.2 [facility] Comment on above: Order Comment: Speci men Type: BLOOD SPECIMEN Ordering Facility: [facility] Address: [address] [place] [address] Performed By: #### 1 1565-9, 08619-1, 50969-7, 66246-5, 17462-9, 41179-7, 71279-3 #### [facility] CLIA [id number] [address] [place] [address] [place] Malate/Creatinine (U) [Molar ratio] 0.6 umol/mmolCr Normal 0.0-1.1 [facility] Comment on above: Order Comment: Speci men Type: BLOOD SPECIMEN Ordering Facility: [facility] Address: [address] [place] [address] Performed By: #### 1 1565-9, 92639-1, 01139-2, 64837-8, 62850-9, 48553-2, 90225-6 #### [facility] CLIA [id number] [address] [place] [address] [place] Malonate/Creatinine (U) [Molar ratio] 0.0 umol/mmolCr Normal 0.0-0.1 [facility] Comment on above: Order Comment: Speci men Type: BLOOD SPECIMEN Ordering Facility: [facility] Address: [facility] [place] [address] Performed By: #### 1 1565-9, 23585-6, 26549-3, 82451-1, 19980-4, 73532-3, 15694-7 #### [facility] CLIA [id number] [address] [place] [address] [place] Methylmalonate/Creatini ne (U) [Molar ratio] <0.4 Normal 0.0-0.6 [facility] Comment on above: Order Comment: Speci men Type: BLOOD SPECIMEN Ordering Facility: [facility] Address: [address] [place] [address] Performed By: #### 1 1565-9, 25049-9, 50667-5, 68488-1, 71194-2, 38262-1, 95038-1 #### [facility] CLIA [id number] [address] [place] [address] [place] Methylsuccinate/Creatin ine (U) [Molar ratio] 0.4 umol/mmolCr Normal 0.0-1.4 [facility] Comment on above: Order Comment: Speci men Type: BLOOD SPECIMEN Ordering Facility: [facility] Address: [address] [place] [address] Performed By: #### 1 1565-9, 00820-6, 02976-1, 68071-2, 09818-7, 22391-2, 35003-0 #### [facility] CLIA [id number] [address] [place] [address] [place] N-acetylaspartate/Creat inine (U) [Molar ratio] 1.5 umol/mmolCr Normal 0.1-8.9 [facility] Comment on above: Order Comment: Speci men Type: BLOOD SPECIMEN Ordering Facility: [facility] Address: [address] [place] [address] Performed By: #### 1 1565-9, 67778-2, 49360-2, 71503-5, 04696-5, 23065-4, 61655-2 #### [facility] CLIA [id number] [address] [place] [address] [place] N-acetyltyrosine/Creati nine (U) [Molar ratio] 0.3 umol/mmolCr Normal 0.0-1.2 [facility] Comment on above: Order Comment: Speci men Type: BLOOD SPECIMEN Ordering Facility: [facility] Address: [address] [place] [address] Performed By: #### 1 1565-9, 92756-9, 86301-0, 82296-7, 36942-3, 81407-9, 48620-1 #### [facility] CLIA [id number] [address] [place] [address] [place] Oxalate/Creatinine (U) [Molar ratio] 2.0 umol/mmolCr Normal 0.7-12.4 [facility] Comment on above: Order Comment: Speci men Type: BLOOD SPECIMEN Ordering Facility: [facility] Address: [address] [place] [address] Performed By: #### 1 1565-9, 03870-4, 07748-5, 79016-7, 32048-7, 46884-7, 23849-0 #### [facility] CLIA [id number] [address] [place] [address] [place] Pyruvate/Creatinine (U) [Molar ratio] 0.5 umol/mmolCr Normal 0.1-2.6 [facility] Comment on above: Order Comment: Speci men Type: BLOOD SPECIMEN Ordering Facility: [facility] Address: [address] [place] [address] Performed By: #### 1 1565-9, 99749-5, 44997-8, 37410-5, 79720-6, 40732-7, 05135-0 #### [facility] CLIA [id number] [address] [place] [address] [place] Sebacate (C8)/Creatinine (U) [Molar ratio] <3.4 High 0.0-0.3 [facility] Comment on above: Order Comment: Speci men Type: BLOOD SPECIMEN Ordering Facility: [facility] Address: [address] [place] [address] Performed By: #### 1 1565-9, 25354-1, 82823-7, 97302-7, 61256-8, 05644-0, 50287-5 #### [facility] CLIA [id number] [address] [place] [address] [place] Suberate/Creatinine (U) [Molar ratio] 1.0 umol/mmolCr Normal 0.0-7.4 [facility] Comment on above: Order Comment: Speci men Type: BLOOD SPECIMEN Ordering Facility: [facility] Address: [address] [place] [address] Performed By: #### 1 1565-9, 91055-8, 51658-1, 40944-3, 73401-6, 28218-1, 66322-2 #### [facility] CLIA [id number] [address] [place] [address] [place] Suberylglycine/Creatini ne (U) [Molar ratio] 0.0 umol/mmolCr Normal <=0.0 [facility] Comment on above: Order Comment: Speci men Type: BLOOD SPECIMEN Ordering Facility: [facility] Address: [address] [place] [address] Performed By: #### 1 1565-9, 59274-6, 39978-0, 48953-2, 25828-3, 51911-6, 87112-8 #### [facility] CLIA [id number] [address] [place] [address] [place] Succinate/Creatinine (U) [Molar ratio] 3.7 umol/mmolCr Normal 0.3-27.4 [facility] Comment on above: Order Comment: Speci men Type: BLOOD SPECIMEN Ordering Facility: [facility] Address: [address] [place] [address] Performed By: #### 1 1565-9, 47390-7, 28005-8, 35826-8, 98180-7, 11386-9, 34047-0 #### [facility] CLIA [id number] [address] Succinylacetone/Creatin ine (U) [Molar ratio] <0.4 Normal <0.4 [facility] Comment on above: Order Comment: Speci men Type: BLOOD SPECIMEN Ordering Facility: [facility] Address: [address] [place], [place] [id number] Performed By: #### 1 1565-9, 45377-6, 42334-8, 30499-9, 16905-8, 89736-0, 72370-5 #### [facility] CLIA [id number] [address] [place] [address] UOA CONSULTATION Normal [facility] Comment on above: Order Comment: Speci men Type: BLOOD SPECIMEN Ordering Facility: [facility] Address: [address] [place] [address] Result Comment: This urine organic acid analysis shows a slightly increased level of 3-hydroxyisovalerate. Increased urinary 3-hydroxyisovalerate is noted in many disorders but an isolated increase of this compound and at this low level is not diagnostic of a specific condition. Possible considerations relevant to this finding include biotinidase deficiency and insufficiency of biotin. NOTE: The biochemical expression of urinary organic acids in the genetic organic acidurias can be dependent on the nutritional status of the subject, the underlying genetic abnormality that he/she may have, concurrent illnesses and other factors. This is also true for other disorders for which urinary organic acid analysis is sometimes a diagnostic tool such as disorders of mitochondrial oxidative phosphorylation, disorders of mitochondrial fatty acid beta-oxidation, and some nutritional deficiencies. Consequently and unless otherwise stated, a normal or non-diagnostic test result on urinary organic acid analysis does not always rule-out the possibility of the types of disorders noted above. This test was developed and its performance characteristics determined by the [facility]. It has not been cleared or approved by the [place] Food and Drug Administration. The FDA had determined that such clearance or approval is not necessary. Performed By: #### 1 1565-9, 88315-8, 99563-1, 65282-2, 18860-1, 60830-8, 10408-1 #### [facility] CLIA [id number] [address] [place] [address] [place] UOA REVIEW Reviewed by Win Durham MD, Ph.D ([id number]) [facility] Comment on above: Order Comment: Speci men Type: BLOOD SPECIMEN Ordering Facility: [facility] Address: [address] [place] [address] Performed By: #### 1 1565-9, 29009-1, 93248-4, 04965-4, 45790-1, 77261-8, 55532-3 #### [facility] CLIA [id number] [address] [place] [address] [place] Uracil/Creatinine (U) [Molar ratio] 1.8 umol/mmolCr Normal 0.0-5.1 [facility] Comment on above: Order Comment: Speci men Type: BLOOD SPECIMEN Ordering Facility: [facility] Address: [address] [place] [address] Performed By: #### 1 1565-9, 40178-9, 89345-9, 08254-8, 60411-4, 06655-0, 63343-9 #### [facility] CLIA [id number] [address] [place] [address] [place] PYRUVATE+LACTATE BLon 2021 Lactate [Moles/Vol] 0.9 mmol/L Normal 0.5-2.[address] [facility] Comment on above: Order Comment: Speci men Type: BLOOD SPECIMEN Ordering Facility: [facility] Address: [address] [place] [address] Result Comment: This test was developed and its performance characteristics determined by [facility]'s [facility] [place] ([facility]). It has not been cleared or approved by the FDA. [facility] is regulated under CLIA as qualified to perform high-complexity testing. This test is used for clinical purposes. It should not be regarded as investigational or for research. Performed By: #### 1 1565-9, 62824-5, 20173-5, 02755-8, 70817-3, 54102-8, 49316-2 #### [facility] CLIA [id number] [address] [place] [address] [place] Pyruvate (Bld) [Moles/Vol] 0.03 mmol/L Normal 0.03-0.10 [facility] Comment on above: Order Comment: Speci men Type: BLOOD SPECIMEN Ordering Facility: [facility] Address: [address] [place], [place] [id number] Result Comment: This test was developed and its performance characteristics determined by [facility] Path[facility] Laboratory Medicine [place] ([facility]). It has not been cleared or approved by the FDA. -[facility] is regulated under CLIA as qualified to perform high-complexity testing. This test is used for clinical purposes. It should not be regarded as investigational or for research. Performed By: #### 1 1565-9, 54254-8, 01957-4, 74380-5, 27173-8, 71208-2, 25550-7 #### [facility] CLIA [id number] [address] [place] [address] [place] Ribonucleoprotein extractabl e nuclear Ab Qn (S)on 06-27-2021 ANTI-CLINICAL ATHLETIC INSTRUCTOR QUAL Negative Normal Negative [facility] Comment on above: Order Comment: Chii daphnie Type: BLOOD SPECIMEN Ordering Facility: [facility] Address: [address] [place] [address] Performed By: #### 1 1565-9, 07895-2, 15984-8, 25436-0, 16386-1, 30297-3, 10027-2 #### [facility] CLIA [id number] [address] [place] [address] [place] RIBOSOMAL CLINICAL ATHLETIC INSTRUCTOR QUAL Negative Normal Negative [facility] Comment on above: Order Comment: Speci men Type: BLOOD SPECIMEN Ordering Facility: [facility] Address: [address] [place], [place] [id number] Result Comment: Anti -Ribosomal RNA (Ribosomal P) antibody is used as an aid in diagnosis of systemic autoimmune diseases especially systemic lupus erythematosus and mixed connective tissue disease. Cross-reactivity with Anti-carpenter antibody is not uncommon. Clinical correlation is required. Test Methodology: Multiplex flow immunoassay. Performed By: #### 1 1565-9, 25057-3, 49508-0, 53886-0, 63302-7, 94235-3, 51470-6 #### [facility] CLIA [id number] [address] [place] [address] [place] SCL-70 extractable nuclear I gG IA Qn (S)on 06-27-2021 SCLERODERMA AB QUAL Negative Normal Negative [facility] Comment on above: Order Comment: Speci men Type: BLOOD SPECIMEN Ordering Facility: [facility] Address: [address] [place] [address] Performed By: #### 1 1565-9, 71234-6, 59737-9, 77863-3, 68634-4, 59352-9, 28022-0 #### [facility] CLIA [id number] [address] [place] [address] [place] SCLERODERMA IGG AB <0.2 Normal <1.0 [facility] Comment on above: Order Comment: Speci daphnie Type: BLOOD SPECIMEN Ordering Facility: [facility] Address: [address] [place] [address] Result Comment: Scl- 70/Scleroderma antibody test is used as an aid in diagnosis of systemic sclerosis especially the diffuse cutaneous form. A negative result cannot rule out systemic sclerosis. The final interpretation should consider clinical picture and other test results such as anti-centromere antibody. Test Methodology: Multiplex flow immunoassay. Performed By: #### 1 1565-9, 12031-5, 93302-9, 69194-1, 41857-8, 39466-9, 57502-4 #### [facility] CLIA [id number] [address] [place] [address] [place] Sjogrens syndrome-A extracta ble nuclear Ab Qn (S)on 06-27-2021 SSA ANTIBODY QUAL Negative Normal Negative [facility] Comment on above: Order Comment: Speci men Type: BLOOD SPECIMEN Ordering Facility: [facility] Address: [address] [place] [address] Performed By: #### 1 1565-9, 74959-3, 69950-8, 29277-3, 41936-3, 80137-3, 41473-6 #### [facility] CLIA [id number] [address] [place] [address] [place] Sjogrens syndrome-B extracta ble nuclear Ab Qn (S)on 06-27-2021 SSB ANTIBODY QUAL Negative Normal Negative [facility] Comment on above: Order Comment: Speci daphnie Type: BLOOD SPECIMEN Ordering Facility: [facility] Address: [address] [place] [address] Performed By: #### 1 1565-9, 15655-4, 28452-1, 79045-4, 55282-4, 37774-3, 16515-0 #### [facility] CLIA [id number] [address] [place] [address] [place] Carpenter extractable nuclear Ig G Qn (S)on 06-27-2021 SM ANTIBODY QUAL Negative Normal Negative [facility] Comment on above: Order Comment: Jese eller Type: BLOOD SPECIMEN Ordering Facility: [facility] Address: [address] [place] [address] Result Comment: Anti -Sm (Carpenter) antibody is used as an aid in diagnosis of systemic lupus erythematosus and its presence is associated with renal disease. A negative result cannot rule out systemic lupus erythematosus. Clinical correlation is required. Test Methodology: Multiplex flow immunoassay. Performed By: #### 1 1565-9, 26943-4, 60060-8, 38182-0, 65623-2, 34253-1, 43723-4 #### [facility] CLIA [id number] [address] [place] [address] [place] VITAMIN D 25 HYDROXYon 06-27 25-hydroxyvitamin D3 [Mass/Vol] 52.0 ng/mL Normal 31.0-80.0 [facility] Comment on above: Order Comment: Speci men Type: BLOOD SPECIMEN Ordering Facility: [facility] Address: [address] [place] [id number] Result Comment: Clas sification of 25 [place] Vitamin D status: Deficiency/Insufficiency: < or = 30 ng/ml. Sufficiency/Optimal Levels: 31-80 ng/mL Toxicity: > 100 ng/mL. Test performed by chemiluminescent immunoassay. Performed By: #### 1 1565-9, 33697-4, 35044-0, 02193-6, 26315-7, 31933-9, 42465-9 #### [facility] CLIA [id number] [address] [place] [address] [place] XR LUMBAR 3V AP/LAT/L5-S1on 06-27-2021 XR LUMBAR 3V AP/LAT/L5-S1 * * *Final Report* * * DATE OF EXAM: Jun 27 2021 10:31AM MDX 5228 - XR LUMBAR 3V AP/LAT/L5-S1 / [...] be intact. Imaged bowel gas pattern is nonobstructed. IMPRESSION: Mild curvature of the lumbar spine. Narrowing of the L4-5 intervertebral disc space. Coremaker Pipe: PSCB Transcribe Date/Time: Jun 27 2021 12:34P Dictated by : ONI GILLETTE MD This examination was interpreted and the report reviewed and electronically signed by: ONI GILLETTE MD on Jun 27 2021 12:36PM EST [id number] Normal [facility] Vital Signs Date Time Vital Sign Value Performing Clinician Facility 12-20-2024 16:34-0400 Body mass index (BMI) [Ratio] 37.3 kg/m2 Kourtney Plotts TURBINE ASSEMBLER.CNM Work Phone: [facility] 12-20-2024 16:34-0400 Body weight 89.54 kg Kourtney Plotts TURBINE ASSEMBLER.CNM Work Phone: [facility] 12-20-2024 16:34-0400 Diastolic blood pressure 72 mm[Hg] Kourtney Plotts TURBINE ASSEMBLER.CNM Work Phone: [facility] 12-20-2024 16:34-0400 Systolic blood pressure 120 mm[Hg] Kourtney Plotts TURBINE ASSEMBLER.CNM Work Phone: [facility] 10-25-2024 15:10-0400 Body mass index (BMI) [Ratio] 35.9 kg/m2 Kourtney Plotts TURBINE ASSEMBLER.CNM Work Phone: [facility] 10-25-2024 15:10-0400 Body weight 86.18 kg Kourtney Plotts TURBINE ASSEMBLER.CNM Work Phone: [facility] 10-25-2024 15:10-0400 Diastolic blood pressure 74 mm[Hg] Kourtney Plotts TURBINE ASSEMBLER.CNM Work Phone: [facility] 10-25-2024 15:10-0400 Systolic blood pressure 110 mm[Hg] Kourtney Plotts TURBINE ASSEMBLER.CNM Work Phone: [facility] 09-27-2024 08:53-0400 Body height 154.9 cm Kourtney Plotts TURBINE ASSEMBLER.CNM Work Phone: [facility] 09-27-2024 08:53-0400 Body mass index (BMI) [Ratio] 36.47 kg/m2 Kourtney Plotts TURBINE ASSEMBLER.CNM Work Phone: [facility] 09-27-2024 08:53-0400 Body weight 87.54 kg Kourtney Plotts TURBINE ASSEMBLER.CNM Work Phone: [facility] 09-27-2024 08:53-0400 Diastolic blood pressure 66 mm[Hg] Kourtney Plotts TURBINE ASSEMBLER.CNM Work Phone: [facility] 09-27-2024 08:53-0400 Systolic blood pressure 110 mm[Hg] Kourtney Okeefe APRN.CNM Work Phone: [facility] 08-26-2024 15:41-0400 Body temperature 97.8 [degF] No Primary Care Physician [facility] 08-26-2024 15:41-0400 Diastolic blood pressure 92 mm[Hg] No Primary Care Physician [facility] 08-26-2024 15:41-0400 Heart rate 88 /min No Primary Care Physician [facility] 08-26-2024 15:41-0400 Respiratory rate 16 /min No Primary Care Physician [facility] 08-26-2024 15:41-0400 SaO2% (BldA) [Mass fraction] 100 % No Primary Care Physician [facility] 08-26-2024 15:41-0400 Systolic blood pressure 130 mm[Hg] No Primary Care Physician [facility] 08-26-2024 13:18-0400 Body height 157.48 cm No Primary Care Physician [facility] 08-26-2024 13:18-0400 Body mass index (BMI) [Ratio] 35.4 kg/m2 No Primary Care Physician [facility] 08-26-2024 13:18-0400 Body weight 87.99 kg No Primary Care Physician [facility] 08-04-2024 15:01-0400 Body mass index (BMI) [Ratio] 37.41 kg/m2 Rhiannon Acosta MD Work Phone: [facility] 08-04-2024 15:01-0400 Body weight 89.81 kg Rhiannon Acosta MD Work Phone: [facility] 08-04-2024 15:01-0400 Diastolic blood pressure 78 mm[Hg] Rhiannon Acosta MD Work Phone: [facility] 08-04-2024 15:01-0400 Systolic blood pressure 122 mm[Hg] Rhiannon Acosta MD Work Phone: [facility] 07-31-2024 09:08-0400 Body mass index (BMI) [Ratio] 36.66 kg/m2 Rhiannon Acosta MD Work Phone: [facility] 07-31-2024 09:08-0400 Body weight 88 kg Rhiannon Acosta MD Work Phone: [facility] 07-31-2024 09:08-0400 Diastolic blood pressure 72 mm[Hg] Rhiannno Acosta MD Work Phone: [facility] 07-31-2024 09:08-0400 Systolic blood pressure 124 mm[Hg] Rhiannon Acosta MD Work Phone: [facility] 04-07-2024 15:24-0500 Body mass index (BMI) [Ratio] 39.11 kg/m2 Rhiannon Acosta MD Work Phone: [facility] 04-07-2024 15:24-0500 Body weight 93.89 kg Rhiannon Acosta MD Work Phone: [facility] 04-07-2024 15:24-0500 Diastolic blood pressure 64 mm[Hg] Rhiannon Acosta MD Work Phone: [facility] 04-07-2024 15:24-0500 Systolic blood pressure 110 mm[Hg] Rhiannon Acosta MD Work Phone: [facility] 03-01-2024 14:04-0500 Body mass index (BMI) [Ratio] 39.45 kg/m2 Placido Alcantar APRN.COMMUNICATION ANALYST Work Phone: [facility] 03-01-2024 14:04-0500 Body temperature 98.01 [degF] Placido Alcantar TURBINE ASSEMBLER.COMMUNICATION ANALYST Work Phone: [facility] 03-01-2024 14:04-0500 Body weight 94.7 kg Placido Alcantar APRN.COMMUNICATION ANALYST Work Phone: [facility] 03-01-2024 14:04-0500 Diastolic blood pressure 78 mm[Hg] Placido Alcantar TURBINE ASSEMBLER.COMMUNICATION ANALYST Work Phone: [facility] 03-01-2024 14:04-0500 Heart rate 94 /min Placido Alcantar TURBINE ASSEMBLER.COMMUNICATION ANALYST Work Phone: [facility] 03-01-2024 14:04-0500 Respiratory rate 16 /min Placido Alcantar TURBINE ASSEMBLER.COMMUNICATION ANALYST Work Phone: [facility] 03-01-2024 14:04-0500 SaO2% (BldA) [Mass fraction] 98 % Placido Alcantar TURBINE ASSEMBLER.COMMUNICATION ANALYST Work Phone: [facility] 03-01-2024 14:04-0500 Systolic blood pressure 122 mm[Hg] Placido Alcantar TURBINE ASSEMBLER.COMMUNICATION ANALYST Work Phone: [facility] 01-20-2024 11:20-0400 Body mass index (BMI) [Ratio] 38.55 kg/m2 Laura Garcia MD Work Phone: [facility] 01-20-2024 11:20-0400 Body weight 92.53 kg Laura Garcia MD Work Phone: [facility] 01-20-2024 11:20-0400 Diastolic blood pressure 78 mm[Hg] Laura Garcia MD Work Phone: [facility] 01-20-2024 11:20-0400 Systolic blood pressure 108 mm[Hg] Laura Garcia MD Work Phone: [facility] 06-15-2023 17:58-0500 Body temperature 97.8 [degF] [facility] 06-15-2023 17:58-0500 Diastolic blood pressure 71 mm[Hg] [facility] 06-15-2023 17:58-0500 Heart rate 104 /min [facility] [place] 06-15-2023 17:58-0500 Respiratory rate 16 /min [facility] 06-15-2023 17:58-0500 SaO2% (BldA) [Mass fraction] 98 % [facility] 06-15-2023 17:58-0500 Systolic blood pressure 104 mm[Hg] [facility] 06-15-2023 15:17-0500 Body height 154.94 cm [facility] 06-15-2023 15:17-0500 Body mass index (BMI) [Ratio] 36.5 kg/m2 [facility] 06-15-2023 15:17-0500 Body weight 87.74 kg [facility] 05-20-2023 11:40-0500 Body weight 87.27 kg Kourtney Okeefe TURBINE ASSEMBLER.CNM Work Phone: [facility] 05-20-2023 11:40-0500 Diastolic blood pressure 66 mm[Hg] Kourtney Plotts TURBINE ASSEMBLER.CNM Work Phone: [facility] 05-20-2023 11:40-0500 Systolic blood pressure 110 mm[Hg] Kourtney Plotts TURBINE ASSEMBLER.CNM Work Phone: [facility] 03-24-2023 14:50-0500 Body temperature 97.81 [degF] Krislyn Aberegg PA Work Phone: [facility] 03-24-2023 14:50-0500 Body weight 87.36 kg Krislyn Aberegg PA Work Phone: [facility] 03-24-2023 14:50-0500 Diastolic blood pressure 72 mm[Hg] Krislyn Aberegg PA Work Phone: [facility] 03-24-2023 14:50-0500 Heart rate 105 /min Krislyn Aberegg PA Work Phone: [facility] 03-24-2023 14:50-0500 Respiratory rate 18 /min Krislyn Aberegg PA Work Phone: [facility] 03-24-2023 14:50-0500 SaO2% (BldA) [Mass fraction] 99 % Krislyn Aberegg PA Work Phone: [facility] 03-24-2023 14:50-0500 Systolic blood pressure 124 mm[Hg] Krislyn Aberegg PA Work Phone: [facility] 02-03-2023 13:18-0400 Body weight 85.73 kg Kourtney Okeefe TURBINE ASSEMBLER.CNM Work Phone: [facility] 02-03-2023 13:18-0400 Diastolic blood pressure 70 mm[Hg] Kourtney Okeefe TURBINE ASSEMBLER.CNM Work Phone: [facility] 02-03-2023 13:18-0400 Systolic blood pressure 110 mm[Hg] Kourtney Okeefe TURBINE ASSEMBLER.CNM Work Phone: [facility] 01-12-2023 23:22-0400 Diastolic blood pressure 77 mm[Hg] [facility] 01-12-2023 23:22-0400 Heart rate 80 /min [facility] 01-12-2023 23:22-0400 Respiratory rate 14 /min [facility] 01-12-2023 23:22-0400 SaO2% (BldA) [Mass fraction] 100 % [facility] 01-12-2023 23:22-0400 Systolic blood pressure 117 mm[Hg] [facility] 01-12-2023 21:23-0400 Body height 154.94 cm [facility] [place] 01-12-2023 21:23-0400 Body mass index (BMI) [Ratio] 35.3 kg/m2 [facility] 01-12-2023 21:23-0400 Body temperature 97.9 [degF] [facility] 01-12-2023 21:23-0400 Body weight 84.73 kg [facility] 12-03-2022 12:50-0400 Body height 154.9 cm Charlie Mansfield PA-C Work Phone: [facility] 12-03-2022 12:50-0400 Body weight 82.51 kg Charlie Mansfield PA-C Work Phone: [facility] 12-03-2022 12:50-0400 Diastolic blood pressure 68 mm[Hg] Charlie Mansfield PA-C Work Phone: [facility] 12-03-2022 12:50-0400 Heart rate 105 /min Charlie Mansfield PA-C Work Phone: [facility] 12-03-2022 12:50-0400 SaO2% (BldA) [Mass fraction] 100 % Charlie Mansfield PA-C Work Phone: [facility] 12-03-2022 12:50-0400 Systolic blood pressure 115 mm[Hg] Charlie Mansfield PA-C Work Phone: [facility] 06-05-2022 13:34-0500 Body weight 78.47 kg Kourtney Okeefe TURBINE ASSEMBLER.CNM Work Phone: [facility] 06-05-2022 13:34-0500 Diastolic blood pressure 70 mm[Hg] Kourtney Ronquillots TURBINE ASSEMBLER.CNM Work Phone: [facility] 06-05-2022 13:34-0500 Systolic blood pressure 110 mm[Hg] Kourtney Okeefe TURBINE ASSEMBLER.CNM Work Phone: [facility] 05-19-2022 07:53-0500 Respiratory rate 16 /min [facility] 05-19-2022 06:17-0500 Diastolic blood pressure 80 mm[Hg] [facility] 05-19-2022 06:17-0500 Heart rate 104 /min [facility] 05-19-2022 06:17-0500 SaO2% (BldA) [Mass fraction] 100 % [facility] 05-19-2022 06:17-0500 Systolic blood pressure 109 mm[Hg] [facility] 05-19-2022 06:14-0500 Body height 154.94 cm [facility] 05-19-2022 06:14-0500 Body mass index (BMI) [Percentile] Per age and sex 95.8 % [facility] 05-19-2022 06:14-0500 Body mass index (BMI) [Ratio] 32.5 kg/m2 [facility] 05-19-2022 06:14-0500 Body temperature 96.3 [degF] [facility] 05-19-2022 06:14-0500 Body weight 78 kg [facility] [place] 04-03-2022 16:31-0500 Body height 152 cm GEM CAMEJO DO [facility] 04-03-2022 16:31-0500 Body temperature 97.16 [degF] GEM REMOSESFIELD DO [facility] 04-03-2022 16:31-0500 Body weight 78 kg GEM CAMEJO DO [facility] 04-03-2022 16:31-0500 Diastolic Blood Pressure Non-Invasive 63 1 GEM CAMEJO DO [facility] 04-03-2022 16:31-0500 Heart rate 100 /min GEM CAMEJO DO [facility] 04-03-2022 16:31-0500 Height ZScore -1.74 GEM CAMEJO DO [facility] Comment on above: Result Comment: ^~:!ZScore Source -[facility] 04-03-2022 16:31-0500 Percent Height for Age 4.09 1 GEM CAMEJO DO [facility] Comment on above: Result Comment: ^~:!Percentile Source -[facility] 04-03-2022 16:31-0500 Respiratory rate 16 /min GEM CAMEJO DO [facility] 04-03-2022 16:31-0500 Systolic Blood Pressure Non-Invasive 101 1 GEM CAMEJO DO [facility] 04-01-2022 16:15-0500 Body temperature 98.24 [degF] MIMA SOMERS MD [facility] 04-01-2022 16:15-0500 Body weight 77.3 kg MIMA SOMERS MD [facility] 04-01-2022 16:15-0500 Diastolic Blood Pressure Non-Invasive 80 1 MIMA SOMERS MD [facility] 04-01-2022 16:15-0500 Heart rate 98 /min MIMA SOMERS MD [facility] 04-01-2022 16:15-0500 Respiratory rate 16 /min MIMA SOMERS MD [facility] 04-01-2022 16:15-0500 Systolic Blood Pressure Non-Invasive 119 1 MIMA SOMERS MD [facility] 03-24-2022 11:41-0500 Body weight 78.47 kg Sofie Tyler MD Work Phone: [facility] 03-24-2022 11:41-0500 Diastolic blood pressure 80 mm[Hg] Sofie Tyler MD Work Phone: [facility] 03-24-2022 11:41-0500 Heart rate 84 /min Sofie Tyler MD Work Phone: [facility] 03-24-2022 11:41-0500 Respiratory rate 16 /min Sofie Tyler MD Work Phone: [facility] 03-24-2022 11:41-0500 Systolic blood pressure 114 mm[Hg] Sofie Tyler MD Work Phone: [facility] 02-20-2022 10:57-0400 Body height 154.9 cm Charlie Mansfield PA-C Work Phone: [facility] 02-20-2022 10:57-0400 Body weight 76.43 kg Charlie Mansfield PA-C Work Phone: [facility] 02-20-2022 10:57-0400 Diastolic blood pressure 67 mm[Hg] Charlie Mansfield PA-C Work Phone: [facility] 02-20-2022 10:57-0400 Heart rate 91 /min Charlie Mansfield PA-C Work Phone: [facility] 02-20-2022 10:57-0400 SaO2% (BldA) [Mass fraction] 100 % Charlie Mansfield PA-C Work Phone: [facility] 02-20-2022 10:57-0400 Systolic blood pressure 104 mm[Hg] Charlie Mansfield PA-C Work Phone: [facility] 02-20-2022 09:52-0400 Body height 154.9 cm Cristiane CALVIN-C Work Phone: [facility] 02-20-2022 09:52-0400 Body weight 74.39 kg Cristiane CALVIN-C Work Phone: [facility] 01-29-2022 00:21-0400 Diastolic blood pressure 71 mm[Hg] [facility] 01-29-2022 00:21-0400 Heart rate 81 /min [facility] 01-29-2022 00:21-0400 Respiratory rate 15 /min [facility] 01-29-2022 00:21-0400 SaO2% (BldA) [Mass fraction] 99 % [facility] 01-29-2022 00:21-0400 Systolic blood pressure 113 mm[Hg] [facility] 01-28-2022 23:12-0400 Body height 154.94 cm [facility] Work Phone: 01-28-2022 23:12-0400 Body mass index (BMI) [Percentile] Per age and sex 95.8 % [facility] 01-28-2022 23:12-0400 Body mass index (BMI) [Ratio] 32.3 kg/m2 [facility] 01-28-2022 23:12-0400 Body temperature 97.8 [degF] [facility] 01-28-2022 23:12-0400 Body weight 77.5 kg [facility] 12-18-2021 14:45-0400 Body weight 74.39 kg Tayler Castillo MD Work Phone: [facility] 12-18-2021 14:45-0400 Diastolic blood pressure 66 mm[Hg] Tayler Castillo MD Work Phone: [facility] 12-18-2021 14:45-0400 Systolic blood pressure 104 mm[Hg] Tayler Castillo MD Work Phone: [facility] 09-19-2021 09:33-0400 Body weight 72.58 kg Liz Esparza MD Work Phone: [facility] 09-19-2021 09:33-0400 Diastolic blood pressure 71 mm[Hg] Liz Esparza MD Work Phone: [facility] 09-19-2021 09:33-0400 Heart rate 72 /min Liz Esparza MD Work Phone: [facility] 09-19-2021 09:33-0400 SaO2% (BldA) [Mass fraction] 99 % Liz Esparza MD Work Phone: [facility] 09-19-2021 09:33-0400 Systolic blood pressure 111 mm[Hg] Liz Esparza MD Work Phone: [facility] 07-23-2021 16:06-0400 Body weight 72.12 kg Daniela Tannhof TURBINE ASSEMBLER.COMMUNICATION ANALYST Work Phone: [facility] 07-23-2021 16:06-0400 Diastolic blood pressure 76 mm[Hg] Daniela Tannhof TURBINE ASSEMBLER.COMMUNICATION ANALYST Work Phone: [facility] 07-23-2021 16:06-0400 Heart rate 68 /min Daniela Tannhof TURBINE ASSEMBLER.COMMUNICATION ANALYST Work Phone: [facility] 07-23-2021 16:06-0400 Respiratory rate 16 /min Daniela Tannhof TURBINE ASSEMBLER.COMMUNICATION ANALYST Work Phone: [facility] 07-23-2021 16:06-0400 SaO2% (BldA) [Mass fraction] 99 % Daniela Tannhof TURBINE ASSEMBLER.COMMUNICATION ANALYST Work Phone: [facility] 07-23-2021 16:06-0400 Systolic blood pressure 110 mm[Hg] Daniela Gaston APRN.COMMUNICATION ANALYST Work Phone: [facility] 07-16-2021 14:16-0400 Body weight 71.22 kg Scott Mercado APRN.HAILEY, DNP Work Phone: [facility] 07-16-2021 14:16-0400 Diastolic blood pressure 76 mm[Hg] Scott Mercado APRN.COMMUNICATION ANALYST, DNP Work Phone: [facility] 07-16-2021 14:16-0400 Heart rate 82 /min Scott Mercado APRN.COMMUNICATION ANALYST, DNP Work Phone: [facility] 07-16-2021 14:16-0400 Respiratory rate 14 /min Scott Mercado APRN.HAILEY, [facility] Work Phone: [facility] 07-16-2021 14:16-0400 SaO2% (BldA) [Mass fraction] 95 % Scott Mercado APRN.HAILEY, [facility] Work Phone: [facility] 07-16-2021 14:16-0400 Systolic blood pressure 120 mm[Hg] Scott Mercado APRN.HAILEY, [facility] Work Phone: [facility] Encounters Encounter Date Encounter Type Care Provider Facility Start: 12-20-2024 End: 12-20-2024 [facility] Start: 12-20-2024 End: 12-20-2024 Patient encounter procedure Kourtney Okeefe TURBINE ASSEMBLER.CRISTIANO Work Phone: OB/Gynecology Comment on above: 19 weeks gestation o f (HCC) (Primary Dx); Obesity in (HCC); Encounter for supervision of high risk in first trimester, antepartum (HCC); PTSD (post-traumatic stress disorder); SOTO (generalized anxiety disorder) Start: 11-22-2024 End: 11-22-2024 ambulatory NI DAMIAN Facility:[facility] Start: 11-13-2024 End: 11-13-2024 Refill Changrandal Tom APRN.CNP Work Phone: Psychiatry Comment on above: Refill Request Start: 11-06-2024 End: 11-06-2024 Patient encounter procedure Whi Tech 1 [employer] [facility] Comment on above: Encounter for antena tristan screening for malformation using ultrasound (HCC) (Primary Dx); 12 weeks gestation of (HCC) Start: 11-06-2024 End: 11-06-2024 ambulatory [facility] Facility:[facility] Start: 10-25-2024 End: 10-25-2024 [facility] Work Phone: OB/Gynecology Comment on above: Encounter for superv ision of high risk in first trimester, antepartum (HCC) (Primary Dx); Subchorionic hematoma in first trimester, single or unspecified fetus (HCC); 11 weeks gestation of (HCC); Other insomnia; Obesity in (HCC); PTSD (post-traumatic stress disorder); SOTO (generalized anxiety disorder) Start: 10-25-2024 End: 10-25-2024 [facility] Facility:[facility] Start: 10-16-2024 End: 10-18-2024 [facility] Work Phone: OB/Gynecology Comment on above: Prenatals Start: 10-12-2024 End: 10-12-2024 Patient encounter procedure [employer]et [employer] [facility] Remote Work Phone: OB/Gynecology Comment on above: 7 weeks gestation of (HCC) (Primary Dx); Subchorionic hematoma in first trimester, single or unspecified fetus (HCC) Start: 10-12-2024 End: 10-12-2024 ambulatory [facility] Facility:[facility] Start: 10-02-2024 End: 12-02-2024 Follow-up encounter Misti Jesus APRN.CNP Work Phone: OB/Gynecology Start: 09-28-2024 End: 09-28-2024 ambulatory [facility] Facility:[facility] Start: 09-28-2024 End: 09-28-2024 Telephone encounter Nurse Rivet Sticker Johanna Argueta Work Phone: Obstetrics/Gynecology Comment on above: PRAF Start: 09-27-2024 End: 09-27-2024 Telephone encounter Ilene SEWELL Navigation Start: 09-27-2024 End: 09-27-2024 Patient encounter procedure Kourtney Okeefe TURBINE ASSEMBLER.CNM Work Phone: OB/Gynecology Comment on above: with uncer tain dates, antepartum (HCC) (Primary Dx); 7 weeks gestation of (HCC); Anxiety; PTSD (post-traumatic stress disorder); Encounter for supervision of high risk in first trimester, antepartum (HCC); Screening for cervical cancer; Screening for human papillomavirus (HPV); SOTO (generalized anxiety disorder); Obesity in (HCC); Severe obesity due to excess calories affecting in first trimester (HCC) Start: 09-27-2024 End: 09-27-2024 ambulatory KOURTNEY OKEEFE Facility:[facility] Start: 08-26-2024 End: 08-26-2024 Emergency department patient visit No Primary Care Physician -Emergency Department Work Phone: Start: 08-26-2024 End: 08-26-2024 Patient encounter procedure Shreyas Garcia TURBINE ASSEMBLER.COMMUNICATION ANALYST Work Phone: [facility] Comment on above: Abdominal pain, unsp ecified abdominal location (Primary Dx) Start: 08-26-2024 End: 08-27-2024 ambulatory SHREYAS GARCIA Facility:[facility] Start: 08-22-2024 End: 10-22-2024 Follow-up encounter Rhiannon Acosta MD Work Phone: OB/Gynecology Start: 08-04-2024 End: 08-04-2024 Patient encounter procedure Rhiannon Acosta MD Work Phone: OB/Gynecology Comment on above: Pre-conception couns eling (Primary Dx); PCOS (polycystic ovarian syndrome); Tobacco dependence; Cannabis dependence, uncomplicated (HCC); Anxiety with depression; Class 2 obesity with body mass index (BMI) of 37.0 to 37.9 in adult, unspecified obesity type, unspecified whether serious comorbidity present Start: 08-04-2024 End: 08-04-2024 ambulatory RHIANNON ACOSTA Facility:[facility] Start: 08-01-2024 End: 08-01-2024 ambulatory Rhiannon Acosta MD Work Phone: OB/Gynecology Comment on above: Medications okay for Start: 07-31-2024 End: 07-31-2024 ambulatory RHIANNON ACOSTA Facility:[facility] Start: 07-31-2024 End: 07-31-2024 Patient encounter procedure Rhiannon Acosta MD Work Phone: OB/Gynecology Comment on above: PCOS (polycystic ova gracy syndrome) (Primary Dx); Insulin resistance Start: 05-11-2024 End: 05-11-2024 ambulatory RHIANNON ACOSTA Facility:[facility] Start: 04-17-2024 End: 05-10-2024 ambulatory Rhiannon Acosta MD Work Phone: OB/Gynecology Comment on above: metformin Start: 04-17-2024 End: 05-10-2024 E-mail encounter from caregiver Rhiannon Acosta MD Work Phone: OB/Gynecology Start: 04-17-2024 End: 04-17-2024 Telephone encounter Rhiannon Acosta MD Work Phone: OB/Gynecology Comment on above: Results Start: 04-10-2024 End: 04-10-2024 ambulatory RHIANNON ACOSTA Facility:[facility] Start: 04-09-2024 End: 04-10-2024 ambulatory Rhiannon Acosta MD Work Phone: OB/Gynecology Comment on above: control side e ffects Start: 04-07-2024 End: 04-07-2024 ambulatory RHIANNON ACOSTA Facility:[facility] Start: 04-07-2024 End: 04-07-2024 Patient encounter procedure Rhiannon Acosta MD Work Phone: OB/Gynecology Comment on above: PCOS (polycystic ova gracy syndrome) (Primary Dx); Abnormal uterine bleeding (AUB); Class 2 obesity with body mass index (BMI) of 39.0 to 39.9 in adult, unspecified obesity type, unspecified whether serious comorbidity present Start: 03-07-2024 End: 03-07-2024 ambulatory CHANG TOM Facility:[facility] Start: 03-01-2024 End: 03-01-2024 ambulatory NI DAMIAN Facility:[facility] Start: 03-01-2024 End: 03-01-2024 Patient encounter procedure Placido Alcantar TURBINE ASSEMBLER.COMMUNICATION ANALYST Work Phone: [facility] Comment on above: Sore throat (Primary Dx) Start: 02-10-2024 End: 02-10-2024 Emergency department patient visit No Primary Care Physician Facility:[facility] Start: 01-20-2024 End: 01-21-2024 ambulatory Laura Garcia MD Work Phone: OB/Gynecology Comment on above: Starting the c ontrol Start: 01-20-2024 End: 01-20-2024 Patient encounter procedure Laura Garcia MD Work Phone: OB/Gynecology Comment on above: Primary oligomenorrh ea (Primary Dx) Start: 12-27-2023 End: 12-27-2023 ambulatory CASTILLO CAMERON Facility:[facility] Start: 12-14-2023 End: 12-14-2023 ambulatory Kourtney Okeefe APRN.CNM Work Phone: OB/Gynecology Start: 12-14-2023 End: 12-14-2023 Patient encounter procedure Kourtney Okeefe TURBINE ASSEMBLER.CNM Work Phone: OB/Gynecology Comment on above: Referral Start: 12-03-2023 Patient Msg Holly Jared TURBINE ASSEMBLER.CNM Work Phone: OB/Gynecology Comment on above: Labwork ordered Start: 12-02-2023 ambulatory Kourtney shah TURBINE ASSEMBLER.CNM Work Phone: OB/Gynecology Comment on above: Possible ? Start: 11-09-2023 Refill Kourtney shah TURBINE ASSEMBLER.CNM Work Phone: OB/Gynecology Comment on above: Refill Request Start: 10-14-2023 End: 10-14-2023 ambulatory [facility] Facility:[facility] Start: 06-16-2023 ambulatory Kourtney shah TURBINE ASSEMBLER.CNM Work Phone: OB/Gynecology Comment on above: Labs Start: 06-16-2023 E-mail encounter wenceslao m caregiver Kourtney Okeefe TURBINE ASSEMBLER.CNM Work Phone: [facility] Start: 06-15-2023 End: 06-15-2023 Emergency department patient visit [facility] Work Phone: Start: 06-11-2023 Telephone encounter Kourtney Dafne lauren TURBINE ASSEMBLER.CNM Work Phone: OB/Gynecology Comment on above: Patient Question (Me dication) Start: 06-02-2023 ambulatory Kourtney shah TURBINE ASSEMBLER.CNM Work Phone: OB/Gynecology Comment on above: Qurstions Start: 06-02-2023 End: 06-02-2023 Subsequent hospital visit by physician [facility] 2 Work Phone: Radiology Comment on above: Secondary amenorrhea [N91.1] Start: 05-20-2023 End: 05-20-2023 Patient encounter procedure Kourtney Okeefe TURBINE ASSEMBLER.CNM Work Phone: OB/Gynecology Comment on above: Missed period (Prima ry Dx); Secondary amenorrhea; Irregular menstrual cycle; Pelvic pain in female Start: 03-25-2023 Telephone encounter Jocelin CALVIN Work Phone: [facility] Comment on above: Results Start: 03-24-2023 End: 03-24-2023 Patient encounter procedure Jocelin CALVIN Work Phone: [facility] Comment on above: Sore throat (Primary Dx); URI, acute Start: 02-23-2023 Refill Tayler lombardo MD Work Phone: OB/Gynecology Comment on above: Refill Request Start: 02-03-2023 End: 02-03-2023 Patient encounter procedure Kourtney Okeefe TURBINE ASSEMBLER.CNM Work Phone: OB/Gynecology Comment on above: Missed period (Prima ry Dx) Start: 01-12-2023 End: 01-13-2023 Emergency department patient visit [facility] Work Phone: Start: 01-04-2023 End: 01-04-2023 ambulatory Bernie Gustafson RADIAL DRILL PRESS OPERATOR FOR PLASTIC Work Phone: [facility] Comment on above: Strain of lumbar reg ion, subsequent encounter (Primary Dx); Leg length inequality Start: 12-30-2022 End: 12-30-2022 ambulatory Bernie Gustafson RADIAL DRILL PRESS OPERATOR FOR PLASTIC Work Phone: [facility] Comment on above: Strain of lumbar reg ion, subsequent encounter (Primary Dx); Leg length inequality Start: 12-28-2022 End: 12-28-2022 ambulatory Bernie Gustafson RADIAL DRILL PRESS OPERATOR FOR PLASTIC Work Phone: [facility] Comment on above: Strain of lumbar reg ion, subsequent encounter (Primary Dx); Leg length inequality Start: 12-09-2022 End: 12-09-2022 ambulatory SUSANNA BARRIGA Facility:[facility] Start: 12-09-2022 End: 12-09-2022 [facility] Susanna Barriga MD Work Phone: [facility] Comment on above: Circadian rhythm sle ep disorder, delayed sleep phase type (Primary Dx); Disruptions of 24-hour sleep-wake cycle; Excessive daytime sleepiness Start: 12-07-2022 End: 12-07-2022 ambulatory Rimma Lemon PT [facility] Comment on above: Strain of lumbar reg ion, subsequent encounter (Primary Dx); Leg length inequality Start: 12-03-2022 End: 12-03-2022 Patient encounter procedure Charlie Mansfield PA-C Work Phone: [facility] Comment on above: Leg length inequalit y (Primary Dx); Strain of lumbar region, subsequent encounter Start: 11-14-2022 ambulatory Sofie dickerson MD Work Phone: [facility] Comment on above: Emotional support an imals Start: 09-21-2022 ambulatory Susanna Barriga MD Work Phone: [facility] Comment on above: E visit Start: 09-02-2022 Chart abstracting Actigraphy Neur (H ist) Neurology Start: 08-19-2022 ambulatory Susanna Barriga MD Work Phone: [facility] Comment on above: Question regarding C OMP METABOLIC PANEL Start: 08-17-2022 End: 08-18-2022 ambulatory SOFIE TYLER Facility:[facility] Start: 06-05-2022 End: 06-05-2022 Patient encounter procedure Kourtney Okeefe TURBINE ASSEMBLER.CNM Work Phone: OB/Gynecology Comment on above: Ovarian cyst rupture (Primary Dx); Patient desires ; Other acne Start: 06-03-2022 Telephone encounter Daniela larkinof TURBINE ASSEMBLER.COMMUNICATION ANALYST Work Phone: [facility] Comment on above: Appointment Start: 06-02-2022 Telephone encounter Sofie leo MD Work Phone: [facility] Comment on above: Appointment Start: 05-19-2022 End: 05-19-2022 Emergency department patient visit [facility] Start: 04-03-2022 End: 04-03-2022 Emergency department patient visit DR. SOFIE TYLER MD. Facility:B Start: 04-03-2022 End: 04-03-2022 Emergency department patient [facility] Start: 04-01-2022 End: 04-01-2022 Emergency department patient visit DR. SOFIE TYLER MD. Facility:[facility] Start: 04-01-2022 End: 04-01-2022 Emergency department patient visit MIMA SOMERS [facility] Start: 03-24-2022 ambulatory Courtney Nietoana karinadevan HIGH RAW SUGAR BOILER Work Phone: Adult Psychology Comment on above: Behavioral Health Ou treach Start: 03-24-2022 E-mail encounter fro m caregiver Courtney Nietopramod HIGH RAW SUGAR BOILER Work Phone: [facility] Start: 03-24-2022 Telephone encounter Courtney dial HIGH RAW SUGAR BOILER Work Phone: Adult Psychology Comment on above: Behavioral Health So cial Work Start: 03-24-2022 End: 03-24-2022 Patient encounter procedure Sofie Tyler MD Work Phone: [facility] Comment on above: Anxiety with depress ion (Primary Dx); Mood changes Start: 03-01-2022 ambulatory Charlie Ty ms PA-C Work Phone: [facility] Comment on above: Leave of absence pap ers Start: 02-20-2022 ambulatory Cristiane grayson PA-C Work Phone: Orthopaedics Comment on above: Leave of Absence Start: 02-20-2022 End: 02-20-2022 Patient encounter procedure Charlie Mansfield PA-C Work Phone: [facility] Comment on above: Somatic dysfunction of lumbar region (Primary Dx) Start: 02-20-2022 End: 02-20-2022 Patient encounter procedure Cristiane Galicia PA-C Work Phone: Orthopaedics Comment on above: Patellofemoral syndr ome of both knees (Primary Dx) Start: 02-20-2022 End: 02-20-2022 Subsequent hospital visit by physician Radio General Kori Mistry Work Phone: Radiology Comment on above: Pain in both knees, unspecified chronicity [M25.561, M25.562] Start: 01-28-2022 End: 01-29-2022 Emergency department patient visit [facility] Start: 01-18-2022 Refill Gerber MCGHEE RN.COMMUNICATION ANALYST Work Phone: [facility] Comment on above: Refill Request Start: 01-01-2022 ambulatory Susanna Barriga MD Work Phone: [facility] Comment on above: Excessive Daytime Sl eepiness Start: 12-19-2021 ambulatory Tayler lombardo MD Work Phone: OB/Gynecology Comment on above: Screenings Start: 12-18-2021 End: 12-18-2021 Patient encounter procedure Tayler Castillo MD Work Phone: OB/Gynecology Comment on above: Irregular menstrual cycle (Primary Dx); Screen for STD (sexually transmitted disease); Dysmenorrhea Start: 12-15-2021 End: 12-15-2021 Patient encounter procedure Brianna Stovall TURBINE ASSEMBLER.COMMUNICATION ANALYST Work Phone: [facility] Comment on above: Encounter for immuni zation (Primary Dx) Start: 09-19-2021 End: 09-19-2021 Patient encounter procedure Liz Esparza MD Work Phone: Neurology Comment on above: Abnormal laboratory test result (Primary Dx); Weakness; Carbon dioxide retention Start: 07-28-2021 Refill Sofie dickerson MD Work Phone: [facility] [place] Comment on above: Refill Request Start: 07-24-2021 Telephone encounter Daniela mcallister TURBINE ASSEMBLER.COMMUNICATION ANALYST Work Phone: [facility] [place] Comment on above: Results; Orders Start: 07-23-2021 End: 07-23-2021 Patient encounter procedure Daniela Gaston TURBINE ASSEMBLER.COMMUNICATION ANALYST Work Phone: [facility] Comment on above: Abnormal laboratory test result (Primary Dx); Screening for diabetes mellitus Start: 07-16-2021 End: 07-16-2021 Patient encounter procedure Scott Mercado TURBINE ASSEMBLER.COMMUNICATION ANALYST, DNP Work Phone: [facility] [place] Comment on above: Chronic bilateral lo w back pain without sciatica (Primary Dx); Abnormal laboratory test result; Overweight (BMI 25.0-29.9) Start: 07-14-2021 End: 07-14-2021 Emergency department patient visit DR. SOFIE TYLER MD. Facility: Start: 06-27-2021 End: 06-28-2021 ambulatory SUSANNA BARRIGA Facility:[facility] Procedures Date Procedure Procedure Detail Performing Clinician Start: 11-06-2024 Us preg uterus after 1st trimest 1/1st gestation Kourtney Okeefe TURBINE ASSEMBLER.CNM Work Phone: Start: 10-12-2024 Us preg uterus after 1st trimest 1/1st gestation Kourtney Okeefe TURBINE ASSEMBLER.CNM Work Phone: Start: 09-28-2024 Antibody screen SEN DAMIAN Comment on above: Order Comment: Speci men Type: BLOOD SPECIMENOrdering Facility: [facility] Address: [address] [place] [address] Performed By: #### T SPN ####CC MAIN BLOOD BANKCLIA [id number] [place] [address] [place] Start: 09-27-2024 Iadna chlamydia trac homatis amplified probe tq Kourtney Okeefe APRN.CNM Work Phone: Start: 09-27-2024 Us uterus l imited 1/> fetuses Kourtney Okeefe APRN.CNM Work Phone: Start: 08-26-2024 Transvaginal echography No Primary Care Physician Start: 08-26-2024 Urnls dip stick/tabl et reagent auto microscopy No Primary Care Physician Start: 08-26-2024 Estimated creatinine clearance No Primary Care Physician Start: 03-01-2024 STREP A MOLECULAR (POC) Placido Alcantar APRN.COMMUNICATION ANALYST Work Phone: Start: 01-20-2024 UA DIP,URINE HCG (POC) Laura Garcia MD Work Phone: Start: 06-15-2023 Computed tomography of abdomen and pelvis with intravenous contrast Start: 06-02-2023 Us transvaginal Quincy Okeefe TURBINE ASSEMBLER.CNM Work Phone: Start: 05-20-2023 Urine test visual color cmprsn eleazar Okeefe TURBINE ASSEMBLER.CNM Work Phone: Start: 03-24-2023 STREP A MOLECULAR (POC) Jocelin CALVIN Work Phone: Start: 09-19-2022 Actigraphy testing recording analysis i&r Susanna Barriga MD Work Phone: Start: 05-19-2022 Computed tomography of abdomen and pelvis with intravenous contrast Start: 02-20-2022 Radiologic exam knee complete 4/more views Cristiane Smith PATaylorC Work Phone: Start: 12-19-2021 Iadna trichomonas va ginalis amplified probe tech Melissa Malone TURBINE ASSEMBLER.COMMUNICATION ANALYST Work Phone: Start: 12-05-2021 Adult depression scr eening assessment Brianna Stovall TURBINE ASSEMBLER.COMMUNICATION ANALYST Work Phone: Start: 09-03-2020 Adult depression scr eening assessment Scott Mercado TURBINE ASSEMBLER.COMMUNICATION ANALYST, DNP Work Phone: Laboratory test resu lt abnormal Abnormal laboratory test result Scott Mercado TURBINE ASSEMBLER.[facility], DNP Work Phone: Laboratory test resu lt abnormal Abnormal laboratory test result Daniela Gaston TURBINE ASSEMBLER.COMMUNICATION ANALYST Work Phone: Laboratory test resu lt abnormal Abnormal laboratory test result Liz Esparza MD Work Phone: Plan of Treatment Date Care Activity Detail Author Start: 09-28-2027 Screening for malign ant neoplasm of cervix Cervical Cancer Screening [facility] Start: 09-27-2025 GC (Gonorrhea) Scree shira (18-24) GC (Gonorrhea) Screening () [facility] Start: 09-27-2025 Screening for Chlamy kyrie trachomatis Chlamydia Screening () [facility] Start: 03-20-2025 RSV Vaccine (1 - Ris k 1-dose series) RSV Vaccine (1 - Risk 1-dose series) [facility] Start: 01-18-2025 End: 01-18-2025 Patient encounter procedure 01/18/2025 4:30 PM EDT Routine Office Visit OB/Gynecology [address] [place] [address] Kourtney Okeefe APRN.CNM [address] [place] [address] Ob OB/Gynecology Comment on above: Ob Start: 01-03-2025 End: 01-03-2025 Patient encounter procedure OB/Gynecology Comment on above: Ob anatomy Start: 12-20-2024 End: 12-20-2024 Patient encounter procedure 12/20/2024 4:30 PM EDT Routine Office Visit OB/Gynecology [address] [place] [address] Kourtney Okeefe APRN.CNM [address] [place] [address] OB OB/Gynecology Comment on above: OB Start: 12-18-2024 Influenza vaccination C [facility] Start: 12-07-2024 Urine microalbumin profile [facility] Start: 11-22-2024 End: 11-22-2024 Patient encounter procedure 11/22/2024 10:30 AM EDT Routine Office Visit OB/Gynecology [address] [place] [address] Ni Damian MD [address] [place] [address] Nuchal/OB OB/Gynecology Comment on above: Nuchal/OB Start: 11-06-2024 End: 11-06-2024 Patient encounter procedure 11/06/2024 11:00 AM EDT Routine Office Visit Maternal Medicine [address] [place] [address] [facility] Comment on above: Nuchal Start: 10-25-2024 End: 10-25-2024 Patient encounter procedure 10/25/2024 3:15 PM EDT Routine Office Visit OB/Gynecology [address] [place] [address] Kourtney Okeefe APRN.CNM [address] [place] [address] NATHANIEL OB/Gynecology Comment on above: NATHANIEL Start: 10-25-2024 End: 01-24-2025 Chromosome 21 trisomy [Presence] in Blood or Tissue by Cytogenetics [facility] Work Phone: Comment on above: Expected: 10/25/2024 , Expires: 01/24/2025 Start: 10-12-2024 End: 10-12-2024 Patient encounter procedure 10/12/2024 3:30 PM EDT Routine Office Visit OB/Gynecology [address] [place] [address] Remote, Rivet Sticker [facility] [address] [place] [address] 7 weeks gestation of (HCC) [Z3A.01] OB/Gynecology Comment on above: 7 weeks gestation of (HCC) [Z3A.01] Start: 09-28-2024 End: 09-28-2024 ambulatory 09/28/2024 2:00 PM EDT Results Only Jovanny Vick REPLACED BY [facility] [address] [place] [address] [place] [facility] Start: 09-27-2024 End: 12-27-2024 ANEMIA REFLEX PANEL ANEMIA REFLEX PANEL Lab Routine with uncertain dates, antepartum (HCC) Expected: 09/27/2024, Expires: 12/27/2024 [facility] Work Phone: Comment on above: Expected: 09/27/2024 , Expires: 12/27/2024 Start: 09-27-2024 End: 12-27-2024 Hemoglobin A1c in Blood HEMOGLOBIN A1C Lab Routine with uncertain dates, antepartum (HCC) Expected: 09/27/2024, Expires: 12/27/2024 [facility] Comment on above: Expected: 09/27/2024 , Expires: 12/27/2024 Start: 09-27-2024 End: 12-27-2024 Hepatitis B virus surface Ag [Presence] in Serum HEPATITIS B SURFACE ANTIGEN Lab Routine with uncertain dates, antepartum (HCC) Expected: 09/27/2024, Expires: 12/27/2024 [facility] Comment on above: Expected: 09/27/2024 , Expires: 12/27/2024 Start: 09-27-2024 End: 12-27-2024 Hepatitis C virus Ab [Presence] in Serum HEPATITIS C ANTIBODY IA WITH CONFIRMATION Lab Routine with uncertain dates, antepartum (HCC) Expected: 09/27/2024, Expires: 12/27/2024 [facility] Comment on above: Expected: 09/27/2024 , Expires: 12/27/2024 Start: 09-27-2024 End: 12-27-2024 HIV 1+2 Ab [Presence] in Serum or Plasma by Immunoassay HIV 1/2 COMBO WITH REFLEX TO DIFFERENTIATION Lab Routine with uncertain dates, antepartum (HCC) Expected: 09/27/2024, Expires: 12/27/2024 [facility] Comment on above: Expected: 09/27/2024 , Expires: 12/27/2024 Start: 09-27-2024 End: 09-27-2025 [facility] Comment on above: Expected: 09/27/2024 , Expires: 09/27/2025 Start: 09-27-2024 End: 12-27-2024 RUBELLA IGG ANTIBODY RUBELLA IGG ANTIBODY Lab Routine with uncertain dates, antepartum (HCC) Expected: 09/27/2024, Expires: 12/27/2024 [facility] Comment on above: Expected: 09/27/2024 , Expires: 12/27/2024 Start: 09-27-2024 End: 12-27-2024 SYPHILIS TREPONEMAL W/REFLEX SYPHILIS TREPONEMAL W/REFLEX Lab Routine with uncertain dates, antepartum (HCC) Expected: 09/27/2024, Expires: 12/27/2024 [facility] Comment on above: Expected: 09/27/2024 , Expires: 12/27/2024 Start: 09-27-2024 End: 12-27-2024 TYPE + SCREEN TYPE + SCREEN Blood Bank Routine with uncertain dates, antepartum (HCC) Expected: 09/27/2024, Expires: 12/27/2024 [facility] Comment on above: Expected: 09/27/2024 , Expires: 12/27/2024 Start: 08-26-2024 [facility] Start: 08-04-2024 End: 11-03-2024 CARRIER SCREEN, STANDARD [facility] Work Phone: Comment on above: Expected: 08/04/2024 , Expires: 11/03/2024 Start: 06-14-2024 End: 06-14-2024 Patient encounter procedure 06/14/2024 8:40 AM EST Office Visit OB/Gynecology [address] [place] [place] [id number] Rhiannon Olson MD [address] [place] [id number] Metformin f/u OB/Gynecology Comment on above: Metformin f/u Start: 05-04-2024 End: 08-03-2024 CBC panel - Blood by Automated count COMPLETE BLOOD COUNT Lab Routine Excessive bleeding in premenopausal period Expected: 05/04/2024, Expires: 08/03/2024 [facility] Work Phone: Comment on above: Expected: 05/04/2024 , Expires: 08/03/2024 Start: 04-07-2024 End: 04-07-2024 Patient encounter procedure 04/07/2024 3:20 PM EST Office Visit OB/Gynecology [address] [place] [id number] Rhiannon Olson MD [address] [place] [id number] Concerns with menstrual cycle, last two obgyn's haven't taken me seriously. OB/Gynecology Comment on above: Concerns with menstr ual cycle, last two obgyn's haven't taken me seriously. Start: 04-07-2024 End: 07-07-2024 Comprehensive metabolic 2000 panel - Serum or Plasma COMPREHENSIVE METABOLIC PANEL Lab Routine PCOS (polycystic ovarian syndrome) Class 2 obesity with body mass index (BMI) of 39.0 to 39.9 in adult, unspecified obesity type, unspecified whether serious comorbidity present Expected: 04/07/2024, Expires: 07/07/2024 [facility] Comment on above: Expected: 04/07/2024 , Expires: 07/07/2024 Start: 04-07-2024 End: 07-07-2024 Insulin [Units/volume] in Serum or Plasma INSULIN ASSAY BLOOD Lab Routine PCOS (polycystic ovarian syndrome) Class 2 obesity with body mass index (BMI) of 39.0 to 39.9 in adult, unspecified obesity type, unspecified whether serious comorbidity present Expected: 04/07/2024, Expires: 07/07/2024 [facility] Work Phone: Comment on above: Expected: 04/07/2024 , Expires: 07/07/2024 Start: 04-07-2024 End: 07-07-2024 TESTOSTERONE, FREE AND TOTAL, BY EQUILIBRIUM ULTRAFILTRATION MASS SPECTROMETRY TESTOSTERONE, FREE AND TOTAL, BY EQUILIBRIUM ULTRAFILTRATION MASS SPECTROMETRY Lab Routine PCOS (polycystic ovarian syndrome) Class 2 obesity with body mass index (BMI) of 39.0 to 39.9 in adult, unspecified obesity type, unspecified whether serious comorbidity present Expected: 04/07/2024, Expires: 07/07/2024 [facility] Comment on above: Expected: 04/07/2024 , Expires: 07/07/2024 Start: 02-24-2024 End: 02-24-2024 Patient encounter procedure 02/24/2024 3:20 PM EST Office Visit OB/Gynecology [address] [place] [address] Laura Garcia MD [address] [place] [address] f/up infertility OB/Gynecology Comment on above: f/up infertility Start: 02-08-2024 End: 02-08-2024 Patient encounter procedure 02/08/2024 3:20 PM EDT Office Visit OB/Gynecology [address] [place] [address] Laura Garcia MD [address] [place] [address] infertility OB/Gynecology Comment on above: infertility Start: 12-19-2023 Covid-19 Vaccine ( season) Covid-19 Vaccine () [facility] Start: 12-19-2023 Influenza vaccination Influenza Vacc ine (#1) [facility] Start: 12-06-2023 End: 12-06-2023 ambulatory 12/06/2023 8:45 AM EDT Results Only Jovanny Troy REPLACED BY [facility] [address] [place] [address] Jovanny [facility] Start: 09-24-2023 Screening for malign ant neoplasm of cervix Cervical Cancer Screening [facility] Start: 06-15-2023 [facility] Start: 05-20-2023 End: 08-19-2023 17-Hydroxyprogesterone [Mass/volume] in Serum or Plasma HYDROXYPROGESTERONE-17 Lab Routine Missed period Secondary amenorrhea Irregular menstrual cycle Expected: 05/20/2023, Expires: 08/19/2023 [facility] Work Phone: Comment on above: Expected: 05/20/2023 , Expires: 08/19/2023 Start: 05-20-2023 End: 08-19-2023 DHEA-S BLD DHEA-S BLD Lab Routine Missed period Secondary amenorrhea Irregular menstrual cycle Expected: 05/20/2023, Expires: 08/19/2023 [facility] Work Phone: Comment on above: Expected: 05/20/2023 , Expires: 08/19/2023 Start: 05-20-2023 End: 08-19-2023 Estradiol (E2) [Mass/volume] in Serum or Plasma ESTRADIOL-17B BLD Lab Routine Missed period Secondary amenorrhea Irregular menstrual cycle Pelvic pain in female Expected: 05/20/2023, Expires: 08/19/2023 [facility] Work Phone: Comment on above: Expected: 05/20/2023 , Expires: 08/19/2023 Start: 05-20-2023 End: 08-19-2023 Fasting glucose [Mass/volume] in Serum or Plasma GLUCOSE FASTING BLD Lab Routine Missed period Secondary amenorrhea Irregular menstrual cycle Expected: 05/20/2023, Expires: 08/19/2023 [facility] Work Phone: Comment on above: Expected: 05/20/2023 , Expires: 08/19/2023 Start: 05-20-2023 End: 08-19-2023 Follitropin [Units/volume] in Serum or Plasma FSH BLD Lab Routine Missed period Secondary amenorrhea Irregular menstrual cycle Expected: 05/20/2023, Expires: 08/19/2023 [facility] Work Phone: Comment on above: Expected: 05/20/2023 , Expires: 08/19/2023 Start: 05-20-2023 End: 08-19-2023 Hemoglobin A1c in Blood HGB A1C Lab Routine Missed period Secondary amenorrhea Irregular menstrual cycle Expected: 05/20/2023, Expires: 08/19/2023 [facility] Work Phone: Comment on above: Expected: 05/20/2023 , Expires: 08/19/2023 Start: 05-20-2023 End: 08-19-2023 Insulin [Units/volume] in Serum or Plasma INSULIN ASSAY BLOOD Lab Routine Missed period Secondary amenorrhea Irregular menstrual cycle Expected: 05/20/2023, Expires: 08/19/2023 [facility] Work Phone: Comment on above: Expected: 05/20/2023 , Expires: 08/19/2023 Start: 05-20-2023 End: 08-19-2023 Lipid 1996 panel - Serum or Plasma LIPID PANEL BASIC Lab Routine Missed period Secondary amenorrhea Irregular menstrual cycle Expected: 05/20/2023, Expires: 08/19/2023 [facility] Work Phone: Comment on above: Expected: 05/20/2023 , Expires: 08/19/2023 Start: 05-20-2023 End: 08-19-2023 Lutropin [Units/volume] in Serum or Plasma LUTEINIZING HORMONE Lab Routine Missed period Secondary amenorrhea Irregular menstrual cycle Expected: 05/20/2023, Expires: 08/19/2023 [facility] Work Phone: Comment on above: Expected: 05/20/2023 , Expires: 08/19/2023 Start: 05-20-2023 End: 08-19-2023 Progesterone [Mass/volume] in Serum or Plasma PROGESTERONE BLD Lab Routine Missed period Secondary amenorrhea Irregular menstrual cycle Expected: 05/20/2023, Expires: 08/19/2023 [facility] Work Phone: Comment on above: Expected: 05/20/2023 , Expires: 08/19/2023 Start: 05-20-2023 End: 08-19-2023 Prolactin [Mass/volume] in Serum or Plasma PROLACTIN BLD Lab Routine Missed period Secondary amenorrhea Irregular menstrual cycle Expected: 05/20/2023, Expires: 08/19/2023 [facility] Work Phone: Comment on above: Expected: 05/20/2023 , Expires: 08/19/2023 Start: 05-20-2023 End: 08-19-2023 Testosterone [Mass/volume] in Serum or Plasma TESTOSTERONE TOTAL Lab Routine Missed period Secondary amenorrhea Irregular menstrual cycle Expected: 05/20/2023, Expires: 08/19/2023 [facility] Work Phone: Comment on above: Expected: 05/20/2023 , Expires: 08/19/2023 Start: 05-20-2023 End: 08-19-2023 Thyrotropin [Units/volume] in Serum or Plasma TSH BLD Lab Routine Missed period Secondary amenorrhea Irregular menstrual cycle Expected: 05/20/2023, Expires: 08/19/2023 [facility] Work Phone: Comment on above: Expected: 05/20/2023 , Expires: 08/19/2023 Start: 12-19-2022 CHLAMYDIA SCREENING (18-24) CHLAMYDIA SCREENING (18-24) [facility] Start: 12-19-2022 GC (GONORRHEA) SCREE SHIRA (18-24) GC (GONORRHEA) SCREENING () [facility] Start: 12-19-2022 Screening for Chlamy kyrie trachomatis Chlamydia Screening () [facility] Start: 12-18-2022 Covid-19 Vaccine ( season) Covid-19 Vaccine ( season) [facility] Start: 12-18-2022 Influenza vaccination [facility] Start: 12-05-2022 Adult depression screening assessment DEPRESSION SCREENING [facility] Start: 12-23-2021 End: 02-22-2022 Hepatitis C virus RNA [Units/volume] (viral load) in Serum or Plasma by ROMAN with probe detection HCV QUANT RNA BY PCR Lab Routine Screen for sexually transmitted diseases Expected: 12/23/2021, Expires: 02/22/2022 [facility] Work Phone: Comment on above: Expected: 12/23/2021 , Expires: 02/22/2022 Start: 12-23-2021 End: 02-22-2022 HIV 1+2 Ab [Presence] in Serum or Plasma by Immunoassay HIV 1 2 COMBO(AG/AB),WITH REFLEX TO DIFFERENTIATION Lab Routine Screen for sexually transmitted diseases Expected: 12/23/2021, Expires: 02/22/2022 [facility] Work Phone: Comment on above: Expected: 12/23/2021 , Expires: 02/22/2022 Start: 12-18-2021 Influenza vaccination [facility] Start: 09-03-2021 Adult depression screening assessment DEPRESSION SCREENING [facility] Start: 07-23-2021 End: 09-22-2021 Hemoglobin A1c/Hemoglobin.total in Blood [facility] Work Phone: Comment on above: Expected: 07/23/2021 , Expires: 09/22/2021 Start: 02-18-2021 COVID-19 VACCINE (2 - Booster for Jhonny series) COVID-19 VACCINE (2 - Booster for Jhonny series) [facility] Start: 12-18-2020 Influenza vaccination INFLUENZA (#1) [facility] Start: 2020 CHLAMYDIA SCREENING () CHLAMYDIA SCREENING (18-24) [facility] Start: 2020 GC (GONORRHEA) SCREE SHIRA (18-24) GC (GONORRHEA) SCREENING (18-24) [facility] Start: 2020 HEPATITIS C SCREENING HEPATITIS C [facility] Start: 2020 Hepatitis C screening Hepatitis C [facility] Start: 2020 HIV SCREENING HIV SCREENING [facility] Start: 2020 HIV screening HIV Screening [facility] Start: 2018 Meningococcal B Vacc ine (1 of 2 - Standard) Meningococcal B Vaccine (1 of 2 - Standard) [facility] Start: 2018 Meningococcal B Vacc ine: Consider Based On Risk (1 of 2 - Patient Seeks Protection) Meningococcal B Vaccine: Consider Based On Risk (1 of 2 - Patient Seeks Protection) [facility] Start: 2018 MENINGOCOCCAL B: Con personal secretary based on risk (1 of 2 - Patient Seeks Protection) MENINGOCOCCAL B: Consider based on risk (1 of 2 - Patient Seeks Protection) [facility] Start: 2016 PEDS TO ADULT TRANSI TION ANNUAL ASSESSMENT PEDS TO ADULT TRANSITION ANNUAL ASSESSMENT [facility] Start: 2014 PEDS TO ADULT TRANSI TION INITIAL DISCUSSION PEDS TO ADULT TRANSITION INITIAL DISCUSSION [facility] Start: 2012 MENINGOCOCCAL B: Con personal secretary based on risk (1 of 2 - Risk Bexsero 2-dose series) MENINGOCOCCAL B: Consider based on risk (1 of 2 - Risk Bexsero 2-dose series) [facility] Bacteria identified in Urine by Culture BACTERIAL CULTURE, URINE Microbiology Routine with uncertain dates, antepartum (HCC) 09/27/2024 9:37 AM EDT [facility] End: 12-02-2024 Choriogonadotropin.beta subunit [Units/volume] in Serum or Plasma HCG QUANTITATIVE Lab Routine Missed menses 2x per week for 2 Occurrences starting 12/03/2023 until 12/02/2024 [facility] Work Phone: Comment on above: 2x per week for 2 Oc currences starting 12/03/2023 until 12/02/2024 Choriogonadotropin.b eta subunit [Units/volume] in Serum or Plasma HCG QUANTITATIVE Lab Routine Missed menses 12/03/2023 4:34 PM EDT [facility] COVID & INFLUENZA A/ B & RSV NAAT, ROUTINE COVID & INFLUENZA A/B & RSV NAAT, ROUTINE Microbiology Routine URI, acute 03/24/2023 3:46 PM EST [facility] Work Phone: PAP TEST PAP TEST Lab Rou levi with uncertain dates, antepartum (HCC) Screening for cervical cancer Screening for human papillomavirus (HPV) 09/27/2024 9:37 AM EDT [facility] Patient Education [facility] Work Phone: Patient referral [facility] Work Phone: TRICHOMONAS VAGINALI S NAAT TRICHOMONAS VAGINALIS NAAT Lab Routine with uncertain dates, antepartum (HCC) 09/27/2024 9:37 AM EDT [facility] End: 06-17-2024 Us transvaginal US FEMALE PELVIS TRANSVAG Radiology Routine Secondary amenorrhea Pelvic pain in female 1 Occurrences starting 05/20/2023 until 06/17/2024 [facility] Work Phone: Comment on above: 1 Occurrences starti ng 05/20/2023 until 06/17/2024 [facility] Immunizations Immunization Date Immunization Notes Care Provider Fa cili 12-15-2021 pneumococcal Conjuga te, unspecified formulation Brianna Stovall TURBINE ASSEMBLER.COMMUNICATION ANALYST Work Phone: [facility] Work Phone: 12-15-2021 pneumococcal (PCV20) vaccine, 20 valent (PREVNAR 20) Brianna Stovall TURBINE ASSEMBLER.COMMUNICATION ANALYST Work Phone: [facility] 06-24-2021 Human Papillomavirus 9-valent vaccine Scott Mercado APRN.[facility] Work Phone: [facility] Work Phone: 03-11-2021 Human Papillomavirus 9-valent vaccine Scott Mercado APRN.[facility] Work Phone: [facility] 12-24-2020 COVID-19 vaccine (JHONNY) Scott Mercado APRN.[facility] Work Phone: [facility] Work Phone: 12-24-2020 Human Papillomavirus 9-valent vaccine Scott Mercado APRN.[facility] Work Phone: [facility] Work Phone: 12-24-2020 meningococcal polysaccharide (groups A, C, Y and W-135) diphtheria toxoid conjugate vaccine (MCV4P) Scott Mercado APRN.[facility] Work Phone: [facility] Work Phone: 12-07-2014 tetanus toxoid, redu efren diphtheria toxoid, and acellular pertussis vaccine, adsorbed Scott Mercado APRN.[facility] Work Phone: [facility] 12-07-2014 varicella virus vaccine Lan Mercado APRN.[facility] Work Phone: [facility] 05-20-2009 varicella virus vaccine Lan Mercado APRN.[facility] Work Phone: [facility] 01-01-2009 diphtheria, tetanus toxoids and acellular pertussis vaccine Scott Mercado APRN.[facility] Work Phone: [facility] 01-01-2009 diphtheria, tetanus toxoids and acellular pertussis vaccine, Haemophilus influenzae type b conjugate, and poliovirus vaccine, inactivated ([id number]) Scott Mercado APRN.[facility] Work Phone: [facility] 01-01-2009 measles, mumps, rube lla, and varicella virus vaccine Scott Mercado APRN.[facility] Work Phone: [facility] 04-20-2007 measles, mumps, rube lla, and varicella virus vaccine Scott Mercado APRN.[facility] Work Phone: [facility] 04-20-2006 DTaP-Haemophilus influenzae type b conjugate vaccine Scott Mercado APRN.[facility] Work Phone: [facility] 07-09-2003 diphtheria, tetanus toxoids and acellular pertussis vaccine, Haemophilus influenzae type b conjugate, and poliovirus vaccine, inactivated ([id number]) Scott Mercado APRN.[facility] Work Phone: [facility] 04-03-2003 diphtheria, tetanus toxoids and acellular pertussis vaccine, Haemophilus influenzae type b conjugate, and poliovirus vaccine, inactivated ([id number]) Scott Mercado APRN.[facility] Work Phone: [facility] 04-03-2003 hepatitis B vaccine, pediatric or pediatric/adolescent dosage Scott Mercado APRN.COMMUNICATION ANALYST [facility] Work Phone: [facility] 2002 diphtheria, tetanus toxoids and acellular pertussis vaccine, Haemophilus influenzae type b conjugate, and poliovirus vaccine, inactivated ([id number]) Scott Mercado APRN.COMMUNICATION ANALYST [facility] Work Phone: [facility] 2002 hepatitis B vaccine, pediatric or pediatric/adolescent dosage Scott Mercado APRN.[facility] Work Phone: [facility] 2002 hepatitis B vaccine, pediatric or pediatric/adolescent dosage Scott Mercado APRN.[facility] Work Phone: [facility] Payers Date Payer Category Payer Self-pay [id number] [facility] 2019 Medicaid [place] [employer] [place] [employer] [id number] 2019-Present [phone] [place] [address] Medicaid [id number] 2019 Medicaid [id number] 2019 Medicaid [id number] 1983 Unknown [id number] 1983 Unknown [id number] 1983 Unknown [id number] Unknown FER [id number] Unknown [facility] [id number] Unknown [facility] [id number] Unknown [id number] Unknown [id number] Unknown [id number] Unknown [id number] Unknown [id number] Social History Date Type Detail Facility Start: 06-27-2021 Tobacco smoking stat us SCIS Light tobacco smoker [facility] Start: 06-27-2021 Tobacco use and exposure User of smokeless tobacco [facility] Start: 07-16-2021 End: 12-20-2024 Alcohol intake Lifetime non-drinker (finding) [facility] Start: 03-09-2021 End: 03-18-2022 History SDOH Alcohol Frequency 1 [facility] Start: 03-09-2021 History SDOH Alcohol Std Drinks 98 [facility] Start: 03-09-2021 End: 03-18-2022 History SDOH Social Connections Phone 5 [facility] Start: 03-09-2021 End: 03-18-2022 History SDOH Social Connections Get Together 4 [facility] Start: 03-09-2021 End: 03-18-2022 History SDOH Social Connections Membership 2 [facility] Start: 03-09-2021 End: 03-18-2022 History SDOH Social Connections Living 8 [facility] Start: 03-09-2021 History SDOH Physica l Activity MPS 12 [facility] Start: 03-09-2021 End: 03-18-2022 History SDOH Financial 3 [facility] Start: 06-27-2021 Tobacco [facility] Start: 2000 Sex Assigned At Not on file [facility] Start: 07-06-2021 End: 02-20-2022 Exposure to SARS-CoV-2 (event) Not sure [facility] Start: 12-18-2021 End: 09-27-2024 Tobacco smoking status NHIS Ex-smoker [facility] History of tobacco use Current smoker [facility] History of tobacco use Cigarette Smoker [facility] Start: 12-18-2021 End: 02-20-2022 Tobacco use and exposure Smokeless tobacco non-user [facility] Start: 01-28-2022 End: 06-15-2023 Tobacco smoking status SCIS Unknown if ever smoked [facility] Start: 2000 Sex Assigned At Female W [facility] Start: 02-20-2022 Tobacco Comment [facility] Start: 03-18-2022 History SDOH Alcohol Std Drinks 0 [facility] Start: 07-14-2021 Tobacco smoking status Heavy t obacco smoker (finding) [facility] Sex Assigned At Sex [facility] Start: 03-17-2022 End: 06-14-2024 History of Social function [facility] Start: 03-17-2022 End: 06-14-2024 Social connection and isolation panel [facility] Do you belong to any clubs or organizations such as jewish groups, unions, fraternal or athletic groups, or school groups? No [facility] Are you now , , , , never or living with a partner? Living with partner [facility] How often to you hav e a drink containing alcohol? Never [facility] Start: 03-20-[address] inks containing alcohol do you have on a typical day? Patient does not drink [facility] How hard is it for y ou to pay for the very basics like food, housing, medical care, and heating Hard [facility] Do you feel stress - tense, restless, nervous, or anxious, or unable to sleep at night because your mind is troubled all the time - these days [OSQ] To some extent [facility] (I/We) worried wheth er (my/our) food would run out before (I/we) got money to buy more. Often true [facility] In the past 12 month s, was there a time when you were not able to pay the mortgage or rent on time? Yes [facility] How hard is it for y ou to pay for the very basics like food, housing, medical care, and heating Somewhat hard [facility] Do you feel stress - tense, restless, nervous, or anxious, or unable to sleep at night because your mind is troubled all the time - these days [OSQ] Very much [facility] (I/We) worried wheth er (my/our) food would run out before (I/we) got money to buy more. Never true [facility] Start: 08-26-2024 Tobacco smoking stat us SCIS Smokes tobacco daily (finding) [facility] Start: 09-27-2024 Tobacco use and exposure Rolo sands smokeless tobacco user [facility] Start: 08-22-2024 [facility] NEGATED: Highlighted row [facility] Goals Date Patient Goal Desired Activity /State Personal health goal Functional Status Date Assessment Result Facility 04-03-2022 Functional Status ID band on, Call device within reach, Bed in low position, Wheels locked, Visitor at bedside [facility] 04-01-2022 Functional Status Standard Safet y ID band on, Call device within reach, Bed in low position, Wheels locked, Upper/Half-Length side-rails up, Bedside Cart Locked, Safety level maintained [facility] Mental Status Date Assessment Result Facility 01-12-2023 Cognitive function Level Of Cons ciousness Awake;Alert;Appropriate [facility] Work Phone: 04-03-2022 Mental Status Oriented x 4 [facility] 04-01-2022 Mental Status Orientation Oriented x 4 [facility] 01-28-2022 Cognitive function Level Of Cons ciousness Awake;Alert;Appropriate;Follow s Commands [facility] Work Phone: Clinical Notes 06-27-2021 to 12-20-2024 Quick Notes - Kourtney Okeefe APRN.CNM - 12/20/2024 4:46 PM EDTPrenatal Quick Notes - Kourtney Okeefe APRN.CNM - 12/20/2024 4:46 PM EDTPatient InstructionsPatient Instructions Note Date & Type Note Facility 12-20-2024 Progress note Formatting of t his note might be different from the original. S: Esha Francois is a 24 year old female who presents at 19 weeks gestation for a routine visit. Thought she was coming today for anatomy US (not scheduled under her appointment tab) Positive movements. Appetite increased. Denies headache, visual changes, chest pain, shortness of breath, vaginal bleeding, leakage of fluid, or dysuria. O: See flow sheet Gen: No apparent distress Abd: Gravid, nontender ASSESSMENT/PLAN: 1. 19 weeks gestation of 2. Obesity in 3. Encounter for supervision of high risk in first trimester, antepartum 4. PTSD (post-traumatic stress disorder 5. SOTO (generalized anxiety disorder - Schedule anatomy US - Continue vitamin/ ASA - Mood stable- continue Effexor 150 mg XR PO and Lamictal 200 mg PO daily- declines counseling at this time - NIPT negative- having a boy! - RTO 2 weeks for anatomy US and 4 weeks for NATHANIEL Okeefe APRN.CNM [facility] 12-20-2024 Miscellaneous Notes S: Esha Francois is a 24 year old female who presents at 19 weeks gestation for a routine visit. Thought she was coming today for anatomy US (not scheduled under her appointment tab) Positive movements. Appetite increased. Denies headache, visual changes, chest pain, shortness of breath, vaginal bleeding, leakage of fluid, or dysuria. O: See flow sheet Gen: No apparent distress Abd: Gravid, nontender ASSESSMENT/PLAN: 1. 19 weeks gestation of 2. Obesity in 3. Encounter for supervision of high risk in first trimester, antepartum 4. PTSD (post-traumatic stress disorder 5. SOTO (generalized anxiety disorder - Schedule anatomy US - Continue vitamin/ ASA - Mood stable- continue Effexor 150 mg XR PO and Lamictal 200 mg PO daily- declines counseling at this time - NIPT negative- having a boy! - RTO 2 weeks for anatomy US and 4 weeks for NATHANIEL Okeefe APRN.CNM documented in this encounter [facility] 12-20-2024 Instructions Araseli Gray MA - 12/20/2024 4:34 PM EDT SEQUENTIAL SCREENINGS The [facility] offers sequential screenings for women who are interested in screenings for chromosomal abnormalities and certain defects during a . The sequential screen combines ultrasound and blood tests to determine the risk of chromosomal abnormalities, including Down's Syndrome (Trisomy 21) and Trisomy 18, as well as open neural tube defects including spina bifida. Ultrasound examination is performed between 11 weeks and 13 weeks gestational age. Blood tests are drawn after the ultrasound and again later in the between 15 and 21 weeks gestational age. Please let your physician know if you are interested in this testing. It will require an appointment with our surface lay out technician. This is not an ultrasound performed by a physician in our office during a routine visit. SIGNS AND SYMPTOMS OF LABOR 1. Contractions every 10 minutes or more often 2. Clear, pink, or brownish fluid (water) leaking from vagina 3. Feeling that baby is pushing down, pressure 4. Low, dull backache 5. Cramps that feel like a period 6. Cramps with or without diarrhea If you notice any of the above symptoms, contact our office at [phone] and ask to speak with a nurse. After hours, you can call doctors registry at [phone] OR call [facility] at [phone] and ask to have the doctor electronic warfare specialist paged. If you consider this an emergency, dial 7--9 or go to your nearest emergency department. NEED HELP? Are you dealing with a violent or abusive relationship? Are you a victim of rape or sexual assult? Call [facility] ([place]) 24 hour Crisis Hotline: 903.956.2751 or 500-830-2358. MANUAL Your Guide to a Healthy manual is now on-line. Visit [email or web address] to download your free copy documented in this encounter [facility] 11-13-2024 Telephone encounter Note Last seen 06/05/24 Next visit sent message to [email or web address] No showed 11/02/24 [facility] 11-13-2024 Miscellaneous Notes Last seen 06/05/24 Next visit sent message to [email or web address] No showed 11/02/24 documented in this encounter [facility] 11-02-2024 Note HNO ID: [id number] Author: CHANG TOM APRN.[facility] Service: ? Author Type: Nurse Practitioner Type: Progress Notes Filed: 11/02/2024 09:33 Note Text: Patient was notified of scheduled appointment prior, patient did not attend today. No-show. [facility] 10-25-2024 Progress note Formatting of t his note might be different from the original. S: Esha Francois is a 24 year old female who presents at 11 weeks gestation for a routine visit. YADIRA of 05/15/25 confirmed with last OB US. Did not complete 1st trimester US to date. Desires NIPT today. Denies headache, visual changes, chest pain, shortness of breath, vaginal bleeding, leakage of fluid, or dysuria.Continues to have difficulty with sleeping. Interested in safe medications. O: See flow sheet Gen: No apparent distress Abd: Gravid, nontender TAUS- +FM and + cardiac activity ASSESSMENT/PLAN: 1. Encounter for supervision of high risk in first trimester, antepartum 2. Subchorionic hematoma in first trimester, single or unspecified fetus 3. 11 weeks gestation of 4. Other insomnia 5. Obesity in - NIPT today - Pregravid BMI 36- will start testing at 36 weeks gestation - Denies any further spotting or bleeding - Continue Lamictal 200 mg PO Daily - Continue Effexor 150 mg PO Daily - Has follow up visit with psychology this month - Feels mood is stable at this time - Start taking ASA at bedtime - RTO 1-2 weeks for 1st trimester US and 4 weeks for WILDER Monson APRN.CNM P: 1) PTL precautions reviewed and when to call 2) RTO [facility] 10-25-2024 Miscellaneous Notes S: Esha Francois is a 24 year old female who presents at 11 weeks gestation for a routine visit. YADIRA of 05/15/25 confirmed with last OB US. Did not complete 1st trimester US to date. Desires NIPT today. Denies headache, visual changes, chest pain, shortness of breath, vaginal bleeding, leakage of fluid, or dysuria.Continues to have difficulty with sleeping. Interested in safe medications. O: See flow sheet Gen: No apparent distress Abd: Gravid, nontender TAUS- +FM and + cardiac activity ASSESSMENT/PLAN: 1. Encounter for supervision of high risk in first trimester, antepartum 2. Subchorionic hematoma in first trimester, single or unspecified fetus 3. 11 weeks gestation of 4. Other insomnia 5. Obesity in - NIPT today - Pregravid BMI 36- will start testing at 36 weeks gestation - Denies any further spotting or bleeding - Continue Lamictal 200 mg PO Daily - Continue Effexor 150 mg PO Daily - Has follow up visit with psychology this month - Feels mood is stable at this time - Start taking ASA at bedtime - RTO 1-2 weeks for 1st trimester US and 4 weeks for NATHANIEL WILDER Moe APRN.CNM P: 1) PTL precautions reviewed and when to call 2) RTO documented in this encounter [facility] 10-25-2024 Instructions Eduardo Garcia MA - 10/25/2024 3:11 PM EDT SEQUENTIAL SCREENINGS The [facility] offers sequential screenings for women who are interested in screenings for chromosomal abnormalities and certain defects during a . The sequential screen combines ultrasound and blood tests to determine the risk of chromosomal abnormalities, including Down's Syndrome (Trisomy 21) and Trisomy 18, as well as open neural tube defects including spina bifida. Ultrasound examination is performed between 11 weeks and 13 weeks gestational age. Blood tests are drawn after the ultrasound and again later in the between 15 and 21 weeks gestational age. Please let your physician know if you are interested in this testing. It will require an appointment with our surface lay out technician. This is not an ultrasound performed by a physician in our office during a routine visit. SIGNS AND SYMPTOMS OF LABOR 1. Contractions every 10 minutes or more often 2. Clear, pink, or brownish fluid (water) leaking from vagina 3. Feeling that baby is pushing down, pressure 4. Low, dull backache 5. Cramps that feel like a period 6. Cramps with or without diarrhea If you notice any of the above symptoms, contact our office at [phone] and ask to speak with a nurse. After hours, you can call doctors registry at [phone] OR call [facility] at [phone] and ask to have the doctor electronic warfare specialist paged. If you consider this an emergency, dial or go to your nearest emergency department. NEED HELP? Are you dealing with a violent or abusive relationship? Are you a victim of rape or sexual assult? Call [facility] ([place]) 24 hour Crisis Hotline: 382.354.4684 or 546-970-7693. MANUAL Your Guide to a Healthy manual is now on-line. Visit [email or web address] Arlene to download your free copy documented in this encounter [facility] 10-18-2024 Telephone encounter Note Rx sent. Kourtney Okeefe APRN.CNM [facility] 10-18-2024 Miscellaneous Notes Rx sent. Kourtney Okeefe APRN.CNM Pharmacy updated. Please file. Tiffany Vidal RN Rx for . Please contact patient for which pharmacy she would like it sent. Kourtney Okeefe APRN.CNM documented in this encounter [facility] 10-18-2024 Telephone encounter Note Pharmacy updated. Please file. Tiffany Vidal RN [facility] 10-18-2024 Telephone encounter Note Rx for . Please contact patient for which pharmacy she would like it sent. Kourtney Okeefe APRN.CNM [facility] 10-13-2024 Note HNO ID: [id number] Author: ANALIA ATWOOD LISW Service: ? Author Type: Technical Education Teacher Type: Progress Notes Filed: 10/13/2024 09:49 Note Text: Summary: Integrated Mental Health Plan of Care Integrated Mental Health Plan of Care If not connected to Care are they agreeable to referral?No declined referral Patient outreached X3 with no contact Additional information Patient outreach: phone call, left message x3, MCM sent, unable to reach patient regarding Women's Behavioral Health referral. [facility] 10-12-2024 Note HNO ID: [id number] Author: MAXI MAYES MD Service: ? Author Type: Physician Type: Progress Notes Filed: 10/12/2024 16:14 Note Text: The patient presents for requested ultrasound. Full report available in the Imaging tab in Into [employer]. Maxi Mayes MD [facility] 10-12-2024 History of Present illness Narrative The patient presents for requested ultrasound. Full report available in the Imaging tab in [employer]. Maxi Mayes MD documented in this encounter [facility] 09-28-2024 Telephone encounter Note 1st risk assessment form submitted 09/28/24 Michael Mendenhall RN [facility] 09-28-2024 Miscellaneous Notes 1st risk assessment form submitted 09/28/24 Michael Mendenhall RN documented in this encounter [facility] 09-27-2024 Telephone encounter Note Juan sent patient My Chart message with community resource info website noted for needs such as food, housing, transportation. [facility] 09-27-2024 Miscellaneous Notes Juan sent patient My Chart message with community resource info website noted for needs such as food, housing, transportation. documented in this encounter [facility] 09-27-2024 Progress note Formatting of t his note might be different from the original. Patient is G1 PO here for NOB. Approximated LMP had gestational age at 9.2 weeks. TVUS today measurements are 7w1d. With positive cardiac activity. Scheduled for formal dating ultrasound to confirm YAIDRA. Kourtney Okeefe APRN.CNM [facility] 09-27-2024 Miscellaneous Notes Patient is G1 PO here for NOB. Approximated LMP had gestational age at 9.2 weeks. TVUS today measurements are 7w1d. With positive cardiac activity. Scheduled for formal dating ultrasound to confirm YADIRA. Kourtney Okeefe APRN.CNM documented in this encounter [facility] 09-27-2024 History of Present illness Narrative OB point of care ultrasound was performed. See imaging tab for details. Eduardo Garcia MA INITIAL OB ASSESSMENT HPI: Esha is a 24 year old White here to establish Obstetrical Care. Patient's last menstrual period was 07/24/2024 (exact date). from OB Dating Form. was planned Complaints: No OB History Gravida1 Para0 Term0 Preterm0 AB0 Living0 SAB0 IAB0 Ectopic0 Multiple0 Live Births0 Previous history: Prior : never History of 4th degree laceration: No History of shoulder dystocia: No History of Hypertensive disorders including pre-eclampsia or gestational hypertension: NA History of gestational diabetes: NA Patient's Risk Screening for delivery: Have you had a prior weber between 20w and 36w6d? No How many pregnancies have you had before? 0 Did you have a previous baby with a GBS Infection? No Please select all that apply for any prior : N/A MEDICAL/PSYCHOSOCIAL HISTORY: History of hemorrhage or bleeding concerns: No Thyroid Disease: No History of chronic hypertension: No History of pre-existing diabetes: No No results found for: ABORHD BMI 36.47 kg/(m^2) Last Pap: History of abnormal pap: No Prior treatment for cervical dysplasia: none. Last HPV: History of STDs: N/A Partner History of STDs: None Did you have a partner with Herpes? No Tobacco use: No E-Cigarette/Vaping Use: No Caffeine use: No Drug use: No Alcohol use: No Multivitamin with Folic acid: Yes Would refuse blood transfusion if medically necessary: No Social Needs: How often does this describe you? I don't have enough money to pay my bills: Often Within the past 12 months, have you worried that your food would run out before you had money to buy more? Often In the past 12 months, has lack of reliable transportation kept you from going to medical appointments or work, or from getting things needed for daily living? Often In the past 12 months, have you had any concerns about having a place to live, or about the condition or quality of your housing? Often Would you like more information on any of the following (please check all that apply)? Centering (group care classes); Supervisor Customer Services; Apprentice Pattern Maker care Social History: Do you have any history of depression, anxiety, PTSD, or other mood problems? Yes, PTSD and anxiety Do you have a history of abuse or trauma that may impact your experience? No Are you currently employed? No Depression/Anxiety Screening: denies symptoms of depression. OB Depression and Anxiety Screening- This Encounter Feeling down, depressed, or hopeless: Not at all Little interest or pleasure in doing things: Not at all Feeling nervous, anxious, or on edge Several days Not being able to stop or control worrying Several days Anxiety Pre-Screening Total (If >/= 3 additional questions will be reviewed) 2 Genetic Screening: Partner present: Yes Patient verbalized knowledge of partner family health history: Yes Do you or your partner have any personal or family history of defects not previously discussed: No Do you have history of a complicated by anomaly, genetic condition, or demise: No Preeclampsia Risk Screening: Screening for prevention of preeclampsia: High risk factors: None Moderate risk ractors: Nulliparity OB Risk Screening: Completed, no positive findings documented. 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 No pertinent surgical history. Current Outpatient Medications Medication Sig Dispense Refill ascorbic acid (VITAMIN C ORAL) Take by mouth. cholecalciferol (VITAMIN D) 1,000 unit tab tablet Take 1,000 Units by mouth once daily. lamoTRIgine (LAMICTAL) 200 mg tablet take 1 tablet by mouth once daily 90 tablet 0 venlafaxine ER (EFFEXOR XR) 150 mg 24 hr capsule Take 1 capsule by mouth once daily. 90 capsule 1 metFORMIN ER (GLUCOPHAGE XR) 500 mg 24 hr tablet Take 2 tablets by mouth two times a day. Take daily with either breakfast or lunch and Dinner 120 tablet 5 Mefenamic Acid 250 mg cap Take 1 capsule by mouth every 6 hours as needed. 30 capsule 6 aspirin, enteric coated (ECOTRIN LOW STRENGTH) 81 mg EC tablet Take 1 tablet by mouth once daily. (Patient not taking: Reported on 09/27/2024) 90 tablet 3 No current facility-administered medications for this visit. Allergies As of Date: 09/27/2024 (No Known Allergies) Fully Assessed 09/27/2024 Does patient have penicillin allergy: No REVIEW OF SYSTEMS: GENERAL: Negative for: Fever or Chills and Positive for: Fatigue HEENT: Negative for: Headache, Impaired Vision, Ringing in Ears, Nosebleeds NECK: Negative for: Swelling, Pain, Stiffness RESPIRATORY: Negative for: Cough, Shortness of breath, Wheezing No history of asthma GASTROINTESTINAL: Positive for: Nausea and Vomiting and Positive for: Heartburn MUSCULOSKELETAL: Negative for: Muscle or joint pain, stiffness, Joint swelling NEUROLOGIC/PSYCHIATRIC: Treatment for anxiety- hx of depression- Currently taking Effexor, Lamictal, Metformin- Acosta- Kruse- [facility] PTSD- bipolar tendeneciesNegative for: Weakness, Paralysis, Numbness, Tingling, Tremor, Anxiety, Depression, Memory loss SKIN: Negative for: Rash, Itching GENITOURINARY: Negative for: vaginal itching, vaginal discharge, hematuria or dysuria and Positive for: urinary frequency SENSITIVE EXAM: The sensitive examination was discussed with the Patient or Patient's Authorized Broadcasting Equipment Mechanic. As applicable, any other physician, advance practice provider, medical student, or other health professional student that will be observing or involved in the sensitive examination for educational or training purposes was discussed with the Patient or Authorized Broadcasting Equipment Mechanic. The Patient or Authorized Broadcasting Equipment Mechanic has agreed to proceed with the sensitive examination. (Sensitive examination includes inspection and/or palpation of the breasts, pelvis, prostate and anorectal regions). PHYSICAL EXAM: BP 110/66 Ht 5' 1 (1.55m) Wt 193 lb (87.5kg) LMP 07/24/2024 BMI 36.49 kg/(m^2). GENERAL: pleasant in no apparent distress DERMATOLOGY: Normal and without lesions NECK: Supple and full range of motion CHEST: Normal inspiratory effort BREAST: deferred ABDOMEN: soft, non-tender, and no masses NEURO: alert and oriented x3,exam grossly non-focal PELVIS: External genitalia normal without lesions. Perineal body intact. No vaginal or cervical lesions. No adnexal masses or tenderness. Clinical Pelvimetry: Pelvimetry clinically assessed as adequate Limited OB ultrasound exam: single intrauterine , positive cardiac activity, and crown-rump length 7.1 weeks ASSESSMENT/PLAN: 1. with uncertain dates, antepartum 2. 7 weeks gestation of 3. Anxiety - ICD9: 300.00, ICD10: F41.9 4. PTSD 5. Encounter for supervision of high risk in first trimester, antepartum 6. Screening for cervical cancer 7. Screening for human papillomavirus ( 8. SOTO (generalized anxiety disorder) 9. Obesity in PLAN: 1) Patient oriented to practice. Patient given new OB orientation folder. Discussed nutrition, folic acid supplementation, dietary guidelines, exercise, smoking, alcohol, caffeine, and drug use. Discussed gestational weight gain guidelines. Discussed routine OB labs including STD/HIV. Discussed how to access Your guide to a health and the [place] [employer]. Reviewed midwifery and cafe worker services that are available. 2) Screening: Hemoglobin A1C: ordered Baby Aspirin: The patient has been counseled about the potential benefits of low dose aspirin in and our recommendation that this be offered to all patients, regardless of whether they meet the high risk criteria specified above. She Accepts Aneuploidy Screening: Discussed aneuploidy screening, nuchal translucency/first trimester early anatomy ultrasound and NIPT. The risks/benefits and limitations of NIPT/aneuploidy screening were reviewed including the potential for false negative and false positive results. The availability of genetic counseling was reviewed. Information on aneuploidy screening was provided. The patient chooses to proceed with First trimester early anatomy ultrasound (12-13w6d) and NIPT (10 weeks) Myriad Carrier Screening: Discussed myriad carrier screening. We discussed the availability of professional-society guided carrier screening and reviewed the conditions screened and limitations of screening. The availability of genetic counseling was reviewed. Information on carrier screening was provided. The patient Declines 3) Patient offered option of Virtual Visits. Patient prefers in person visits. 4) BMI 36- will need testing 5) Consult for counseling services placed 6) Continue Lamictal 200 mg PO Daily and Effexor 150 mg XR PO daily- notify psych of 7) Formal dating ultrasound to confirm YADIRA Follow up in 2 weeks or sooner prn. Kourtney Okeefe APRN.CNM documented in this encounter [facility] 09-27-2024 Note HNO ID: [id number] Author: KOURTNEY OKEEFE APRN.CNM Service: ? Author Type: Apprentice Pattern Maker Type: Progress Notes Filed: 09/27/2024 12:40 Note Text: OB point of care ultrasound was performed. See imaging tab for details. Eduardo Garcia MA INITIAL OB ASSESSMENT HPI: Esha is a 24 year old White here to establish Obstetrical Care. Patient's last menstrual period was 07/24/2024 (exact date). from OB Dating Form. was planned Complaints: No OB History Gravida1 Para0 Term0 Preterm0 AB0 Living0 SAB0 IAB0 Ectopic0 Multiple0 Live Births0 Previous history: Prior : never History of 4th degree laceration: No History of shoulder dystocia: No History of Hypertensive disorders including pre-eclampsia or gestational hypertension: NA History of gestational diabetes: NA Patient's Risk Screening for delivery: Have you had a prior weber between 20w and 36w6d? No How many pregnancies have you had before? 0 Did you have a previous baby with a GBS Infection? No Please select all that apply for any prior : N/A MEDICAL/PSYCHOSOCIAL HISTORY: History of hemorrhage or bleeding concerns: No Thyroid Disease: No History of chronic hypertension: No History of pre-existing diabetes: No No results found for: ABORHD BMI 36.47 kg/(m2) Last Pap: History of abnormal pap: No Prior treatment for cervical dysplasia: none. Last HPV: History of STDs: N/A Partner History of STDs: None Did you have a partner with Herpes? No Tobacco use: No E-Cigarette/Vaping Use: No Caffeine use: No Drug use: No Alcohol use: No Multivitamin with Folic acid: Yes Would refuse blood transfusion if medically necessary: No Social Needs: How often does this describe you? I don't have enough money to pay my bills: Often Within the past 12 months, have you worried that your food would run out before you had money to buy more? Often In the past 12 months, has lack of reliable transportation kept you from going to medical appointments or work, or from getting things needed for daily living? Often In the past 12 months, have you had any concerns about having a place to live, or about the condition or quality of your housing? Often Would you like more information on any of the following (please check all that apply)? Centering (group care classes); Supervisor Customer Services; Apprentice Pattern Maker care Social History: Do you have any history of depression, anxiety, PTSD, or other mood problems? Yes, PTSD and anxiety Do you have a history of abuse or trauma that may impact your experience? No Are you currently employed? No Depression/Anxiety Screening: denies symptoms of depression. OB Depression and Anxiety Screening- This Encounter Feeling down, depressed, or hopeless: Not at all Little interest or pleasure in doing things: Not at all Feeling nervous, anxious, or on edge Several days Not being able to stop or control worrying Several days Anxiety Pre-Screening Total (If >/= 3 additional questions will be reviewed) 2 Genetic Screening: Partner present: Yes Patient verbalized knowledge of partner family health history: Yes Do you or your partner have any personal or family history of defects not previously discussed: No Do you have history of a complicated by anomaly, genetic condition, or demise: No Preeclampsia Risk Screening: Screening for prevention of preeclampsia: High risk factors: None Moderate risk ractors: Nulliparity OB Risk Screening: Completed, no positive findings documented. 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 No pertinent surgical history. Current Outpatient Medications Medication Sig Dispense Refill ascorbic acid (VITAMIN C ORAL) Take by mouth. cholecalciferol (VITAMIN D) 1,000 unit tab tablet Take 1,000 Units by mouth once daily. lamoTRIgine (LAMICTAL) 200 mg tablet take 1 tablet by mouth once daily 90 tablet 0 venlafaxine ER (EFFEXOR XR) 150 mg 24 hr capsule Take 1 capsule by mouth once daily. 90 capsule 1 metFORMIN ER (GLUCOPHAGE XR) 500 mg 24 hr tablet Take 2 tablets by mouth two times a day. Take daily with either breakfast or lunch and Dinner 120 tablet 5 Mefenamic Acid 250 mg cap Take 1 capsule by mouth every 6 hours as needed. 30 capsule 6 aspirin, enteric coated (ECOTRIN LOW STRENGTH) 81 mg EC tablet Take 1 tablet by mouth once daily. (Patient not taking: Reported on 09/27/2024) 90 tablet 3 No current facility-administered medications for this visit. Allergies As of Date: 09/27/2024 (No Know (more content not included)... [facility] 09-27-2024 Instructions Kourtney Okeefe APRN.DEIRDRE - 09/27/2024 8:40 AM EDT Here are some links for wonderful Providers here in the community and surrounding areas. Do not hesitate to contact their offices, many are offering virtual visits during this time. 0-255-2-[id number] - [place] Maternal Mental Health Hotline If you are in suicidal crisis, please call or text [phone]-TALK ( ) or visit the National Suicide Prevention Lifeline website. mchb.[facility].gov [facility] Behavior[facility] Psychology, Psychiatry, Counseling Connect with therapist/ can do virtual visits [phone] Referral to the [facility] To schedule an appointment, please call the [place] for Behavioral Health Appointment Line: [phone] option 1 Counsel[facility] - [place], [place] [address] [facility] [place], [facility] [facility] [address] [place] [address] [facility] [address] [place] [address] [facility] [address] [place], [place] [id number] Mario Alberto Varma MD [address] [place] [address] [facility] [address] [facility], [address] [place] [address] [facility] [address] [place] [address] [facility] [place] / [place] [phone]/ [phone] [facility] [address] [facility] [phone] [facility] [place] / [place] [phone] [facility] [address] [place] [address]/ [facility] [phone] RAMAKRISHNA Davis, CLC [facility] Workshops, telehealth and at home visits. [phone] Humanistic counseling center 20 locations [facility], [place], [place], [place], [place], [place], [place]ts, [place], [place], [place], [place], [place], [place], [facility], [place], [place] ,[facility], [place], [place],[facility], south [place], [place], [facility] [place], [place], [place] www.[employer] [phone] Psychotherapy resources outside of [facility] are listed below [facility] MELODIE [place], CONTROL CABINET ASSEMBLER-S [phone] Revival.clientsecure.de [address] [phone] *Trauma therapy, EMDR, in person or virtual visit. Accepts some insurances. [place] [phone] [facility] [employer] [place] [address] new test company Psychotherapy Web: https://www.Trulia/ Support International Online Provider Directory https://UpWind Solutions/ [facility] https://PSS Systems/ TechTurn for Behavioral Health and Wellness Web: https://Seeloz Inc./ Pressflip for Effective Living Web: https://20/20 Gene Systems Inc.livingSalus Security Devices/ LifeStance Web: https://Alcyone Lifesciences/location/[facility] [place]/ [facility] Web: https://www.[facility].org / [facility] Web: https://SANUWAVE Health.org/ Recovery Resources Mental health and substance abuse help Web: https://www.BoqiisFusebill [facility] [address] [place] [address] [employer] [phone] www.Teach[employer]Life [employer]ing LL & RESOURCES Support International Direct peer support and connection to professional resources Non-Emergency Helpline Phone: / Text: [phone] Web: https://www..net/ Online Provider Directory: https://UpWind Solutions/ Online Support Meetings: https://www..net/get-hel p/mpv-kmwgys-grbkmuq-meetings/ JULIUS Baby and Supervisor Customer Services Services Web: https://wwwKakao Corp/ Chat& (ChatAnd) Expert information on medication use during and Text: [phone] Web: https://iPeen/ NATIONAL REGISTRY FOR PSYCHIATRIC MEDICATIONS Currently studying the safety of antidepressants, ADHD medications and atypical antipsychotics taken during TO PARTICIPATE CALL TOLL-FREE: Web: https://womensmentalhealth.org/res earch/pregnancyregistry/ Support Groups: [facility]- Follow on facebook Baby Bistro support group led by [facility] department [facility] - Support Group [facility].org The POEM support group [phone] Www.poemonline.org Follow on facebook - POEM burger chapter Online support meetings PSI https://www..net/get-hel p/aji-mrqiqp-zwydyny-meetings/ CC mommy and me virtual support group 11:30-1pm Support for mothers and new babies and toddlers [place] childbirth education: Childbirth @cc.org or call [phone] Support groups Online support meetings PSI https://www..net/get-hel p/sgl-ccaaat-tdllusy-meetings/ Here are the support groups they offer: Support of parents of 1 to 4 years old children POEM ( Outreach and Encouragement for Moms) offers free support for mothers experiencing depression, anxiety, and other mood and anxiety disorders. Masks are recommended but not required. No pre-registration required. Babies in arms welcome. meetings now take place on the and Wednesday of each month Location: [facility] [address] [place] [address] Room 122 (library room) 7-8:00 p.m. When you enter the jewish parking lot off of [address], the entrance door closest to our meeting room is on the front of the building toward the right. For those who are more comfortable with a virtual platform, PO offers online support group options several days of the week. To register for an online group or to find out more about POEM, website at: https://Underground Solutionsaohio.org/get-help/mater qzb-mfuzpw-tqfbjm/poem-services/ offer a confidential helpline: private Facebook group is called SHEFALI [facility] Blossom Here are the groups they offer: Traumatic childbirth resources: Http://pattch.org/ https://www.RFEyeD/ CRISIS: CRISIS HOTLINE [phone], 911 or go to the nearest ER. [facility] [phone] / [facility] [phone] https://www.[facility] system[facility].org Crisis text line text the word HOME to 581285 Please select the following link to access the [facility] Your Guide to a Healthy . www.C[facility].org/healthypregnancyguide documented in this encounter [facility] 08-26-2024 Discharge summary [facility] 08-26-2024 Radiology Diagnostic study note [facility] Imaging Services [address] [place] [address] Transvaginal Non- MR#: [id number] Acct: [id number] Name: ESHA FRANCOIS Rep #: [id number] : 2000 F 23 From: Ariadna Headley MD PCP: Care Physician,No Primary Status: PRE ER Study:Transvaginal Non- Date of Exam: 08/26/24 Exam# [id number] Ordering Dr: Xavi Law MD EXAM: US Pelvis Transabdominal and Transvaginal, Complete CLINICAL INDICATION: SEVERE PAIN TECHNIQUE: Real-time complete transabdominal and transvaginal pelvic ultrasoundwith image documentation. Transvaginal imaging was used for better evaluation of the endometrium and adnexa. COMPARISON: No relevant prior studies available. FINDINGS: UTERUS/CERVIX: Unremarkable. No myometrial mass. The uterus measures 6.8 x 4.0 x 3.3 cm. The endometrial stripe measures 0.7 cm in thickness. RIGHT OVARY: Unremarkable. Normal blood flow. The right ovary measures 2.8 x 3.0 x 1.9 cm. LEFT OVARY: Unremarkable. Normal blood flow. The left ovary measures 2.6 x 2.8 x 2.5 cm. FREE FLUID: Fluid in the cul-de-sac. BLADDER: Unremarkable as visualized. Wall is normal thickness for degree of distention. US/Transvaginal Non- IMPRESSION: No acute findings in the pelvis. Reading Location: [facility] CC: Dr. Bruce Law MD; No Primary Care Physician ~ Coremaker Pipe: Signed [facility] 08-26-2024 Discharge summary Note Date/Time August 26, 2024 3:29p m [facility] Medical Records Department [address] [place] [address] Emergency Department Summary 08/26/24 MR#: [id number] Acct: [id number] Name: ESHA FRANCOIS Rep #: [id number] : 2000 23 From: Bruce Law MD PCP: Care Physician,No Primary Status :REG ER Location: ED HPI HPI - GI History of Present Illness Chief Complaint: Abd Pain Informant: patient and spouse/S.O. Narrative Narrative: 23-year-old female woke up this morning with diffuse significant pelvis pain around 2 AM, 11 hours ago. She states this is similar pain to when she had a ruptured ovarian cyst in the past except it is not lateralizing this time and isthroughout her pelvis. Nausea but no vomiting although she states she has had intermittent vomiting for the last couple weeks. She states she is about 3 dayslate on her menstrual cycle did a home test that was negative. She denies any abnormal vaginal discharge or bleeding today. She denies any fevers or chills. Pain does not go into her back. No history of abdominal surgeries. PFSH PFSH Home Medications ?Medication ?Instructions ?Recorded ?Last Taken ?Type venlafaxine 150 mg 150 mg PO DAILY 06/09/21 Unk nown History capsule,extended release 24 hr (Effexor XR) dicyclomine 10 mg capsule 20 mg (2 x 10 mg) PO TIDAC # 20 05/19/22 Unknown Rx CAPSULES ondansetron 4 mg disintegrating 4 mg PO Q8H PRN PRN Na usea #10 tabs 05/19/22 Unknown Rx tablet lamotrigine 200 mg tablet 200 mg PO DAILY 06/15/23 Unk nown History Allergy/AdvReac Type Severity Reaction Status Date / Time No Known Allergies Allergy Verified 08/26/24 13:18 Social History Smoking Status: Current every day smoker tobacco type: e-cigarettes ROS ROS ED Constitutional Constitutional ED: Denies chills or fever(s) Eyes Eyes: Denies change in vision or diplopia ENT ENT ED: Denies rhinorrhea or sore throat Cardiovascular Cardiovascular: Denies chest pain or palpitations Respiratory/Chest Respiratory/Chest: Denies cough or dyspnea Gastrointestinal Gastrointestinal: Reports abdominal pain and nausea; Denies diarrhea or vomiting Genitourinary Genitourinary ED: Reports other Details: no abn vag d/c ; Denies dysuria or hematuria Musculoskeletal Musculoskeletal: Reports back pain; Denies neck pain Integumentary Denies abscess or rash Neurologic Neurologic: Denies headache(s), paresthesias or weakness Psychiatric Psychiatric: Denies anxiety or suicidal thoughts EXAM Physical Exam Const Vital Signs: 08/26/24 13:18 Temperature 97.8 F Temperature Source Oral Pulse Rate 88 Respiratory Rate 16 Blood Pressure 130/92 H Blood Pressure Mean 104 Pulse Ox 100 Oxygen Delivery Method Room Air Positive well nourished and well developed General Appearance ED: well developed and NAD HEENT Reports moist mucous membranes normocephalic and atraumatic Eyes PERRL and EOMs intact bilaterally Neck full ROM and supple Resp normal respiratory effort and clear to auscultation bilaterally Cardio regular rate, regular rhythm and no murmurs GI non-distended GI Narrative: Tender throughout pelvis without guarding or rebound Auscultation: normoactive bowel sounds Palpation: soft Back/Spine no CVA tenderness General Back: other FROM Extremity normal to inspection General Extremety ED: Negative for edema, pulses abnormal or tenderness General Extremity: Negative for edema or pulses abnormal Neuro oriented x3, CN's II-XII intact bilaterally and no sensory deficits noted Sensorium / Orientation: awake and alert Motor Exam: strength 5/5 throughout Psych thought process normal Mood & Affect: anxious and tearful Skin no rashes or lesions noted and no wounds MDM MDM MDM Narrative Medical decision making narrative: In order to rule out ectopic, serum qualitative was obtained it is negative ruling that out essentially. Blood counts are good, making TOA less likely, but given the possibility of torsion because of how much pain she is in,transvaginal ultrasound is obtained. She is feeling much better after IV Toradol and Zofran. I reviewed the ultrasound images and the result which I agree with, it is essentially normal. It is noted that there was some free fluid in the cul-de-sac, this could be consistent with a ruptured ovarian cyst, which with the findings patient states she had before when she had this pain. Since she has no symptoms of an STI or leukocytosis I do not think she has PID. She is comfortable going home and treating with [id number] medications andfollowing up if pain persists. Lab Data Attestation: I reviewed the patient's lab results. Labs: Laboratory Results - last 24 hr 08/26/24 08/26/24 13:42 14:01 WBC 6.3 RBC 5.24 Hgb 14.4 Hct 44.5 MCV 84.9 MCH 27.5 MCHC 32.4 RDW Std Deviation 42.4 RDW Coeff of Rae 13.6 Plt Count 344 MPV 9.5 Immature Gran % (Auto) 0.300 Neut % (Auto) 50.7 Lymph % (Auto) 37.8 [place] % (Auto) 9.3 Eos % (Auto) 1.1 Baso % (Auto) 0.8 Absolute Neuts (auto) 3.2 Absolute Lymphs (auto) 2.36 Nucleated RBC % 0 Sodium 140 Potassium 4.2 Chloride 109 H Carbon Dioxide 20.1 L Anion Gap 11 BUN 5 Creatinine 0.78 Estim Creat Clear Calc 117.54 Est GFR (MDRD) Non-Af 110 BUN/Creatinine Ratio 6.6 L Glucose 106 H Calcium 9.4 Serum , Qual NEGATIVE Urine Color Yellow Urine Clarity Clear Urine pH 5.0 Ur Specific [place] 1.020 Urine Protein 15 H Urine Glucose (UA) Normal Urine Ketones 5 H Urine Occult Blood Negative Urine Nitrite Negative Urine Bilirubin Negative Urine Urobilinogen Normal Ur Leukocyte Esterase Negative Urine RBC 0 SEEN Urine WBC 0 SEEN Ur Squamous Epith Cells 0-5 SEEN Urine Bacteria 0 SEEN Urine Mucus 0 SEEN Radiography Diagnostic Testing: Clinical Impression(s) from Imaging Studies Transvaginal US 08/26/24 14:07 IMPRESSION: No acute findings in the pelvis. Reading Location: [facility] Discharge Plan Triage Chief Complaint: Abd Pain ED Provider: Bruce Law Dx/Rx/DC Orders Clinical Impression: Pelvic pain in female Instructions: Treating a Ruptured Ovarian Cyst Prescriptions: No Action venlafaxine [Effexor XR] 150 mg capsule,extended release 24hr 150 mg PO DAILY Patient Comments: take 1 capsule by mouth once daily ondansetron 4 mg tablet,disintegrating 4 mg PO Q8H PRN PRN (Reason: Nausea) Qty: 10 0RF dicyclomine 10 mg capsule 20 mg PO TIDAC Qty: 20 0RF lamotrigine 200 mg tablet 200 mg PO DAILY Patient Comments: take 1 tablet by mouth once daily Primary Care Provider: Care Physician,No Primary Referrals: your pocketbook maker [Other] - 3-5 Days if not improving Print Language: Kiswahili Disposition Disposition: Home, Self Care What to do if you have Problems For any increased pain, shortness of breath, bleeding, nausea or vomiting, chest pain, or any unexpected problems, contact your Primary Care Provider. Call [facility] ([phone]) or report to the closest Emergency Room. Call 911 if necessary. 08/26/24 1529 <Electronically signed by Bruce Law MD> Cosigner Signature (if applicable): CC: No Primary Care Physician ~ Signed [facility] Work Phone: [phone]) 562-609805-10-2025 NoteHNO ID: [id number] Author: SHREYAS GARCIA APRN.COMMUNICATION ANALYST Service: ? Author Type: Nurse Practitioner Type: Progress Notes Filed: 08/26/2024 13:14 Note Text: Patient woke up with severe abdominal pain. Patient is bent over crying. Patient can hardly even answer the questions. Patient's boyfriend said that it is coming and going but is very severe. Patient says she has had cyst burst before. Says it might be this. She is not sure. Due to the amount of pain patient send patient is being referred to the emergency room boyfriend will take her now.[facility]05-10-2025 History of Present illness Narrative* Shreyas Garcia APRN.HAILEY - 08/26/2024 1:14 PM EDT Patient woke up with severe abdominal pain. Patient is bent over crying. Patient can hardly even answer the questions. Patient's boyfriend said that it is coming and going but is very severe. Patientsays she has had cyst burst before. Says it might be this. She is not sure. Due to the amount of pain patient send patient is being referred to the emergency room boyfriend will take her now. [facility] Instructions* Patient Instructions* Rhiannon Olson MD - 08/04/2024 3:25 PM EDT - Continue taking your metformin and vitamin B12 as you have been. - Start taking your vitamins and 2,000 international units of vitamin D daily. - Stop taking your oral contraceptive pill now. - Proceed with the standard carrier screening (covering common conditions such as cystic fibrosis and spinal muscular atrophy); the order will be placed. - Quit smoking and ensure that no one smokes in your living environment. - Reduce or stop marijuana use. - Follow a healthy lifestyle that includes regular exercise, a balanced diet rich in whole foods, and maintaining a normal weight; aim for a weight gain of 5 to 15 pounds. - You may have blood work done on your way out today. - If you become , please call us so we can see you around the 7- to 8- week sofie. - If you try for one full year without becoming , please call us as this will be consideredinfertility and further evaluation will be needed. - Monitor Cycles with PCOS they may be irregular- you need to have a cycle at least every 3 months documented in this encounterProm[facility]04-[facility] NoteHNO ID: [id number] Author: RHIANNON OLSON MD Service: ? Author Type: Physician Type: Progress Notes Filed: 08/04/2024 15:31 Note Text: Obstetrics and Gynecology [place] QUANTITATIVE CONSULTANT Visit Subjective Recording using [employer] software for draft documentation of the visit was discussed with the patient/authorized outside sales representative; all questions welcomed and answered. Patient/authorized outside sales representative agreed to proceed CHIEF COMPLAINT: The patient is a 23-year-old female presenting for preconception counseling. HPI: Preconception Counseling - Recently discontinued oral contraceptive pills and has been actively trying to conceive since the last appointment. - Currently taking metformin and B12 supplements. - Smokes cigarettes and marijuana; denies alcohol use. -uncertain of family decent - h/o PCOS will monitor Cycles HISTORY: OB History Gravida0 Para0 Term0 Preterm0 AB0 Living0 SAB0 IAB0 Ectopic0 Multiple0 Live Births0 Certified Phlebotomist History LMP: 07/27/2024 (Within Days), Having periods Age at Menarche: Age at First : Age at Menopause: Certified Phlebotomist History Comments: Sexual Activity: Yes; No partner data on record Contraception: Condom, Not used PAST MEDICAL HISTORY Diagnosis Date Anxiety with depression 12/05/2020 Chronic bilateral low back pain without sciatica 07/16/2021 SOTO (generalized anxiety disorder) Overweight (BMI 25.0-29.9) 07/16/2021 Sleep disturbance 12/05/2020 No past surgical history on file. FAMILY HISTORY Problem Relation Age of Onset Narcolepsy Father Social History Tobacco Use Smoking status: Former Types: Cigarettes Smokeless tobacco: Never Tobacco comments: vape Vaping Use Vaping status: current everyday user Substances: Nicotine, Flavoring Devices: Pre-filled pod Substance Use Topics Alcohol use: Never Drug use: Never Current Outpatient Medications Medication Sig metFORMIN ER (GLUCOPHAGE XR) 500 mg 24 hr tablet Take 2 tablets by mouth two times a day. Take daily with either breakfast or lunch and Dinner lamoTRIgine (LAMICTAL) 200 mg tablet take 1 tablet by mouth once daily venlafaxine ER (EFFEXOR XR) 150 mg 24 hr capsule Take 1 capsule by mouth once daily. Mefenamic Acid 250 mg cap Take 1 capsule by mouth every 6 hours as needed. No current facility-administered medications for this visit. ALLERGIES No Known Allergies REVIEW OF SYSTEMS: No current ROS findings were explicitly documented in the transcript. No symptoms were reported. Objective SENSITIVE EXAM: Sensitive exam not performed. PHYSICAL EXAM: BP 122/78 Wt 198 lb (89.8kg) LMP 07/27/2024 General: No acute distress. skin: multiple skin bites/lesions on extremities- fleas? Assessment AND Plan ASSESSMENT AND PLAN: 1. Pre-conception counseling (Z31.69) - Discussed continuation of current medications, including metformin and B12 supplementation. - Recommended vitamins and vitamin D supplementation at 2,000 IU daily. - Ordered standard carrier screening for common genetic disorders such as cystic fibrosis and spinal muscular atrophy. - Advised cessation of smoking and marijuana use due to risks of chronic ear and lung infections, sudden syndrome, and lower IQ in offspring. - Emphasized importance of a healthy lifestyle, including regular exercise and consumption of whole foods. - Advised maintaining a normal weight, with a recommended weight gain of 5-15 pounds during . - Instructed to contact the clinic upon confirmation of for an appointment around the 7-8 week sofie. - If is not achieved after one year of trying (by July year), will initiate infertility workup. - CARRIER SCREENING ORDERED 2. PCOS (polycystic ovarian syndrome) (E28.2) - Continue current management with metformin- continue metformin BID - consider progesterone if needed for cycle induction 3. Tobacco dependence (F17.200) - Advised cessation of smoking due to associated risks in . 4. Cannabis dependence, uncomplicated (HCC) (F12.20) - Advised cessation of marijuana use due to potential impact on development. 5. Anxiety with depression (F41.8) - No changes to current management. 6. Class 2 obesity with body mass index (BMI) of 37.0 to 37.9 in adult, unspecified obesity type, unspecified whether serious comorbidity present (E66.812) - Discussed importance of maintaining a healthy weight prior to and during to reduce risks of obesity in offspring. Medical Decision Making: Problems: Moderate: 2+ stable chronic illnesses Data: Unique test(s) ordered: 1 Risk: Moderate: Moderate risk from testing/treatment Medical Decision Making Level: 4 - Moderate Rhiannon Khan, [facility]04-18-2025 History of Present illness Narrative* Rhiannon Olson MD - 08/04/2024 3:18 PM EDT Images from the original note were not included. Obstetrics and Gynecology [place] QUANTITATIVE CONSULTANT Visit Subjective Recording using ambient [employer] software for draft documentation of the visit was discussed with the patient/authorized outside sales representative; all questions welcomed and answered. Patient/authorized outside sales representative agreed to proceed CHIEF COMPLAINT: The patient is a 23-year-old female presenting for preconception counseling. HPI: Preconception Counseling - Recently discontinued oral contraceptive pills and has been actively trying to conceive since thelast appointment. - Currently taking metformin and B12 supplements. - Smokes cigarettes and marijuana; denies alcohol use. -uncertain of family decent - h/o PCOS will monitor Cycles HISTORY: OB History Gravida0 Para0 Term0 Preterm0 AB0 Living0 SAB0 IAB0 Ectopic0 Multiple0 Live Births0 Certified Phlebotomist History LMP: 07/27/2024 (Within Days), Having periods Age at Menarche: Age at First : Age at Menopause: Certified Phlebotomist History Comments: Sexual Activity: Yes; No partner data on record Contraception: Condom, Not used PAST MEDICAL HISTORY Diagnosis Date Anxiety with depression 12/05/2020 Chronic bilateral low back pain without sciatica 07/16/2021 SOTO (generalized anxiety disorder) Overweight (BMI 25.0-29.9) 07/16/2021 Sleep disturbance 12/05/2020 No past surgical history on file. FAMILY HISTORY Problem Relation Age of Onset Narcolepsy Father Social History Tobacco Use Smoking status: Former Types: Cigarettes Smokeless tobacco: Never Tobacco comments: vape Vaping Use Vaping status: current everyday user Substances: Nicotine, Flavoring Devices: Pre-filled pod Substance Use Topics Alcohol use: Never Drug use: Never Current Outpatient Medications Medication Sig metFORMIN ER (GLUCOPHAGE XR) 500 mg 24 hr tablet Take 2 tablets by mouth two times a day. Take daily with either breakfast or lunch and Dinner lamoTRIgine (LAMICTAL) 200 mg tablet take 1 tablet by mouth once daily venlafaxine ER (EFFEXOR XR) 150 mg 24 hr capsule Take 1 capsule by mouth once daily. Mefenamic Acid 250 mg cap Take 1 capsule by mouth every 6 hours as needed. No current facility-administered medications for this visit. ALLERGIES No Known Allergies REVIEW OF SYSTEMS: No current ROS findings were explicitly documented in the transcript. No symptoms were reported. Objective SENSITIVE EXAM: Sensitive exam not performed. PHYSICAL EXAM: BP 122/78 Wt 198 lb (89.8kg) LMP 07/27/2024 General: No acute distress. skin: multiple skin bites/lesions on extremities- fleas? Assessment & Plan ASSESSMENT AND PLAN: 1. Pre-conception counseling (Z31.69) - Discussed continuation of current medications, including metformin and B12 supplementation. - Recommended vitamins and vitamin D supplementation at 2,000 IU daily. - Ordered standard carrier screening for common genetic disorders such as cystic fibrosis and spinal muscular atrophy. - Advised cessation of smoking and marijuana use due to risks of chronic ear and lung infections, sudden syndrome, and lower IQ in offspring. - Emphasized importance of a healthy lifestyle, including regular exercise and consumption of wholefoods. - Advised maintaining a normal weight, with a recommended weight gain of 5-15 pounds during . - Instructed to contact the clinic upon confirmation of for an appointment around the 7-8week sofie. - If is not achieved after one year of trying (by July next year), will initiate infertility workup. - CARRIER SCREENING ORDERED 2. PCOS (polycystic ovarian syndrome) (E28.2) - Continue current management with metformin- continue metformin BID - consider progesterone if needed for cycle induction 3. Tobacco dependence (F17.200) - Advised cessation of smoking due to associated risks in . 4. Cannabis dependence, uncomplicated (HCC) (F12.20) - Advised cessation of marijuana use due to potential impact on development. 5. Anxiety with depression (F41.8) - No changes to current management. 6. Class 2 obesity with body mass index (BMI) of 37.0 to 37.9 in adult, unspecified obesity type, unspecified whether serious comorbidity present (E66.812) - Discussed importance of maintaining a healthy weight prior to and during to reduce risks of obesity in offspring. Medical Decision Making: Problems: Moderate: 2+ stable chronic illnesses Data: Unique test(s) ordered: 1 Risk: Moderate: Moderate risk from testing/treatment Medical Decision Making Level: 4 - Moderate Rhiannon Khan MD documented in this encounterProm[facility] NoteHNO ID: [id number] Author: RHIANNON OLSON MD Service: ? Author Type: Physician Type: Progress Notes Filed: 07/31/2024 09:31 Note Text: Esha Francois is a 23 year old female who presents for follow up PCOS HPI: Taking metformin once a day (2 pills). Tried twice a day but had n/v. Has lost weight. Feels taste buds have changed and eating less. Also, taking Jovita, doing well with no side effects. Having cycles every month. Has 5-6 days of flow. 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 Acne and hair growth is the same, not as bothersome. She feels she Had a cyst rupture in April- but no concerns since that time Considering OB History Gravida0 Para0 Term0 Preterm0 AB0 Living0 SAB0 IAB0 Ectopic0 Multiple0 Live Births0 Certified Phlebotomist History LMP: 07/27/2024 (Within Days), Having periods Age at Menarche: Age at First : Age at Menopause: Certified Phlebotomist History Comments: Sexual Activity: Yes; No partner data on record Contraception: Condom, Not used PAST MEDICAL HISTORY Diagnosis Date Anxiety with depression 12/05/2020 Chronic bilateral low back pain without sciatica 07/16/2021 SOTO (generalized anxiety disorder) Overweight (BMI 25.0-29.9) 07/16/2021 Sleep disturbance 12/05/2020 No past surgical history on file. FAMILY HISTORY Problem Relation Age of Onset Narcolepsy Father Social History Tobacco Use Smoking status: Former Types: Cigarettes Smokeless tobacco: Never Tobacco comments: vape Vaping Use Vaping status: current everyday user Substances: Nicotine, Flavoring Devices: Pre-filled pod Substance Use Topics Alcohol use: Never Drug use: Never Current Outpatient Medications Medication Sig lamoTRIgine (LAMICTAL) 200 mg tablet take 1 tablet by mouth once daily metFORMIN ER (GLUCOPHAGE XR) 500 mg 24 hr tablet Take 2 tablets by mouth two times a day. Take daily with either breakfast or lunch and Dinner Drospirenone-Ethinyl Estradiol (JOVITA, 28,) 3-0.03 mg per tablet Take 1 tablet by mouth once daily. venlafaxine ER (EFFEXOR XR) 150 mg 24 hr capsule Take 1 capsule by mouth once daily. Mefenamic Acid 250 mg cap Take 1 capsule by mouth every 6 hours as needed. No current facility-administered medications for this visit. Allergies As of Date: 07/31/2024 (No Known Allergies) Fully Assessed 07/31/2024 REVIEW OF SYSTEMS Abdomen: has some diarrhea when tried to increase pills Expanded ROS: N/A Allergies and current medication updated:Yes SENSITIVE EXAM: The sensitive examination was discussed with the Patient or Patient's Authorized Broadcasting Equipment Mechanic. As applicable, any other physician, advance practice provider, medical student, or other health professional student that will be observing or involved in the sensitive examination for educational or training purposes was discussed with the Patient or Authorized Broadcasting Equipment Mechanic. The Patient or Authorized Broadcasting Equipment Mechanic has agreed to proceed with the sensitive examination. (Sensitive examination includes inspection and/or palpation of the breasts, pelvis, prostate and anorectal regions). EXAM: BP 124/72 Wt 194 lb (88.0kg) LMP 07/27/2024 GENERAL: pleasant, female in no apparent distress HEENT: Normocephalic and atraumatic NECK: full range of motion DERMATOLOGY: Normal, without lesions, non-icteric, and non-hirsute NEURO: alert and oriented x3,exam grossly non-focal EXTREMITIES: normal ASSESSMENT AND PLAN: Assessment AND Plan PCOS (polycystic ovarian syndrome) Orders: metFORMIN ER (GLUCOPHAGE XR) 500 mg 24 hr tablet; Take 2 tablets by mouth two times a day. Take daily with either breakfast or lunch and Dinner Insulin resistance - Continue metformin- ok to try to increase slowly over time BID - Continue OCPS - reviewed PNV before stopping OCPs if trying for - follow up for routine annual - start B12 vitamin, refill metformin given Medical Decision Making: Problems: Moderate: 2+ stable chronic illnesses Risk: Moderate: Drug management Medical Decision Making Level: 4 - Moderate Rhiannon Khan [facility]04-14-2025 History of Present illness Narrative* Rhiannon Olson MD - 07/31/2024 9:07 AM EDT Esha Francois is a 23 year old female who presents for follow up PCOS HPI: Taking metformin once a day (2 pills). Tried twice a day but had n/v. Has lost weight. Feels taste buds have changed and eating less. Also, taking Jovita, doing well with no side effects. Having cycles every month. Has 5-6 days of flow. 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 Acne and hair growth is the same, not as bothersome. She feels she Had a cyst rupture in April- but no concerns since that time Considering OB History Gravida0 Para0 Term0 Preterm0 AB0 Living0 SAB0 IAB0 Ectopic0 Multiple0 Live Births0 Certified Phlebotomist History LMP: 07/27/2024 (Within Days), Having periods Age at Menarche: Age at First : Age at Menopause: Certified Phlebotomist History Comments: Sexual Activity: Yes; No partner data on record Contraception: Condom, Not used PAST MEDICAL HISTORY Diagnosis Date Anxiety with depression 12/05/2020 Chronic bilateral low back pain without sciatica 07/16/2021 SOTO (generalized anxiety disorder) Overweight (BMI 25.0-29.9) 07/16/2021 Sleep disturbance 12/05/2020 No past surgical history on file. FAMILY HISTORY Problem Relation Age of Onset Narcolepsy Father Social History Tobacco Use Smoking status: Former Types: Cigarettes Smokeless tobacco: Never Tobacco comments: vape Vaping Use Vaping status: current everyday user Substances: Nicotine, Flavoring Devices: Pre-filled pod Substance Use Topics Alcohol use: Never Drug use: Never Current Outpatient Medications Medication Sig lamoTRIgine (LAMICTAL) 200 mg tablet take 1 tablet by mouth once daily metFORMIN ER (GLUCOPHAGE XR) 500 mg 24 hr tablet Take 2 tablets by mouth two times a day. Take daily with either breakfast or lunch and Dinner Drospirenone-Ethinyl Estradiol (JOVITA, 28,) 3-0.03 mg per tablet Take 1 tablet by mouth once daily. venlafaxine ER (EFFEXOR XR) 150 mg 24 hr capsule Take 1 capsule by mouth once daily. Mefenamic Acid 250 mg cap Take 1 capsule by mouth every 6 hours as needed. No current facility-administered medications for this visit. Allergies As of Date: 07/31/2024 (No Known Allergies) Fully Assessed 07/31/2024 REVIEW OF SYSTEMS Abdomen: has some diarrhea when tried to increase pills Expanded ROS: N/A Allergies and current medication updated:Yes SENSITIVE EXAM: The sensitive examination was discussed with the Patient or Patient's Authorized Broadcasting Equipment Mechanic. As applicable, any other physician, advance practice provider, medical student, or other health professional student that will be observing or involved in the sensitive examination for educational or training purposes was discussed with the Patient or Authorized Broadcasting Equipment Mechanic. The Patient or Authorized Broadcasting Equipment Mechanic has agreed to proceed with the sensitive examination. (Sensitive examination includes inspection and/or palpation of the breasts, pelvis, prostate and anorectal regions). EXAM: BP 124/72 Wt 194 lb (88.0kg) LMP 07/27/2024 GENERAL: pleasant, female in no apparent distress HEENT: Normocephalic and atraumatic NECK: full range of motion DERMATOLOGY: Normal, without lesions, non-icteric, and non-hirsute NEURO: alert and oriented x3,exam grossly non-focal EXTREMITIES: normal ASSESSMENT AND PLAN: Assessment & Plan PCOS (polycystic ovarian syndrome) Orders: metFORMIN ER (GLUCOPHAGE XR) 500 mg 24 hr tablet; Take 2 tablets by mouth two times a day. Take daily with either breakfast or lunch and Dinner Insulin resistance - Continue metformin- ok to try to increase slowly over time BID - Continue OCPS - reviewed PNV before stopping OCPs if trying for - follow up for routine annual - start B12 vitamin, refill metformin given Medical Decision Making: Problems: Moderate: 2+ stable chronic illnesses Risk: Moderate: Drug management Medical Decision Making Level: 4 - Moderate Rhiannon Khan MD documented in this encounterPromed[facility]02-17-2025 NoteHNO ID: [id number] Author: CHANG TOM APRN.COMMUNICATION ANALYST Service: ? Author Type: Nurse Practitioner Type: Progress Notes Filed: 06/05/2024 16:05 Note Text: Patient was notified of scheduled appointment prior, patient did not attend today. No-show.[facility]01-16-2025 Telephone encounter Note* Telephone Encounter - Rhiannon Olson MD - 05/04/2024 9:01 AM EST Noted, is she taking her OCPs? Not too concerned with clot size right now, continue to monitor bleeding - will order cbc. [facility]01-16-2025 Miscellaneous Notes* Telephone Encounter - Rhiannon Olson MD - 05/04/2024 9:01 AM EST Noted, is she taking her OCPs? Not too concerned with clot size right now, continue to monitor bleeding - will order cbc. documented in this encounterPromed[facility]12-30-2024 Telephone encounter Note * Telephone Encounter - Ni Clancy RN - 04/17/2024 10:24 AM EST Patient notified. F/U scheduled. Ni Clancy RN [facility]12-30-2024 Miscellaneous Notes* Telephone Encounter - Ni Clancy RN - 04/17/2024 10:24 AM EST Patient notified. F/U scheduled. Ni Clancy RN * Telephone Encounter - Radha Douglass RN - 04/17/2024 8:53 AM EST Left message for patient to call office. Radha Douglass RN * Telephone Encounter - Radha Douglass RN - 04/17/2024 8:52 AM EST ----- Message from Rhiannon Acosta MD sent at 04/17/2024 8:38 AM EST ----- Please notify patient of elevated testosterone levels- c/w PCOS and elevated insulin levels- ideally we want under 10 so this is c/w insulin resistance which we see with PCOS- recommend Metformin as discussed at her last visit. Will start with 500mg at night- increase to 1000mg with dinner when sheis comfortable. Please have her follow up in office or virtual in 8-12 weeks so I can see how she is feeling and we will discuss increasing metformin again. Will put instructions on mychart for her. Please have her read them. documented in this encounterPromed[facility]12-30-2024 Telephone encounter Note * Telephone Encounter - Radha Douglass RN - 04/17/2024 8:53 AM EST Left message for patient to call office. Radha Douglass RN [facility]12-30-[facility] Telephone encounter Note* Telephone Encounter - Radha Douglass RN - 04/17/2024 8:52 AM EST ----- Message from Rhiannon Acosta MD sent at 04/17/2024 8:38 AM EST ----- Please notify patient of elevated testosterone levels- c/w PCOS and elevated insulin levels- ideally we want under 10 so this is c/w insulin resistance which we see with PCOS- recommend Metformin as discussed at her last visit. Will start with 500mg at night- increase to 1000mg with dinner when sheis comfortable. Please have her follow up in office or virtual in 8-12 weeks so I can see how she is feeling and we will discuss increasing metformin again. Will put instructions on mychart for her. Please have her read them. [facility]12-[facility] Telephone encounter Note* Telephone Encounter - Rhiannon Olson MD - 04/10/2024 11:57 AM EST Some nausea can be normal. Try to continue taking- it should improve. [facility]12-23-[facility] Miscellaneous Notes* Telephone Encounter - Rhiannon Olson MD - 04/10/2024 11:57 AM EST Some nausea can be normal. Try to continue taking- it should improve. documented in this encounterPromedica [facility]12-20-2024 NoteHNO ID: [id number] Author: RHIANNON OLSON MD Service: ? Author Type: Physician Type: Progress Notes Filed: 04/07/2024 16:25 Note Text: Esha Francois is a 23 year old female who presents for Concerns regarding painful/irregular menses. Longest she has gone without a cycle is 6 months. Pt reports typical time btwn cyccles is 2 months- pt reports usually bleeds for 5 days. Pt reports typically heavy for day 2-3. Pt reports uses pads for protection- reports on heavy day changes protection 5-6 times. Pt reports does not bleed through clothes. Pt reports clots are size of jeet. Pt reports pain medication works well- mefenamic acid when needed. Pt does have to shave her chin hair, has cystic acne. Reports she would like to get another us - she does feel she has PCOS and wants to know what to do. OB History T0 L0 SAB0 IAB0 Ectopic0 Multiple0 Live Births0 Certified Phlebotomist History LMP: 02/01/2024 (Within Days), Having periods Age at Menarche: Age at First : Age at Menopause: Certified Phlebotomist History Comments: Sexual Activity: Yes; No partner data on record Contraception: Condom, Not used PAST MEDICAL HISTORY Diagnosis Date Anxiety with depression 12/05/2020 Chronic bilateral low back pain without sciatica 07/16/2021 SOTO (generalized anxiety disorder) Overweight (BMI 25.0-29.9) 07/16/2021 Sleep disturbance 12/05/2020 No past surgical history on file. FAMILY HISTORY Problem Relation Age of Onset Narcolepsy Father Social History Tobacco Use Smoking status: Former Types: Cigarettes Smokeless tobacco: Never Tobacco comments: vape Vaping Use Vaping status: current everyday user Substances: Nicotine, Flavoring Devices: Pre-filled pod Substance Use Topics Alcohol use: Never Drug use: Never Current Outpatient Medications Medication Sig venlafaxine ER (EFFEXOR XR) 150 mg 24 hr capsule Take 1 capsule by mouth once daily. lamoTRIgine (LAMICTAL) 200 mg tablet take 1 tablet by mouth once daily Mefenamic Acid 250 mg cap Take 1 capsule by mouth every 6 hours as needed. medroxyPROGESTERone (PROVERA) 10 mg tablet Take 1 tablet by mouth once daily. Take for 10 days of until menses starts. (Patient not taking: Reported on 03/01/2024) No current facility-administered medications for this visit. Allergies As of Date: 04/07/2024 (No Known Allergies) Fully Assessed 04/07/2024 REVIEW OF SYSTEMS Abdomen: no pain : Allergies and current medication updated:Yes SENSITIVE EXAM: The sensitive examination was discussed with the Patient or Patient's Authorized Broadcasting Equipment Mechanic. As applicable, any other physician, advance practice provider, medical student, or other health professional student that will be observing or involved in the sensitive examination for educational or training purposes was discussed with the Patient or Authorized Broadcasting Equipment Mechanic. The Patient or Authorized Broadcasting Equipment Mechanic has agreed to proceed with the sensitive examination. (Sensitive examination includes inspection and/or palpation of the breasts, pelvis, prostate and anorectal regions). EXAM: BP 110/64 Wt 207 lb (93.9kg) LMP 02/01/2024 GENERAL: pleasant, female in no apparent distress HEENT: Normocephalic, atraumatic, and mucus membranes moist NECK: full range of motion DERMATOLOGY: Normal, without lesions, non-icteric, and hirsutism NEURO: alert and oriented x3,exam grossly non-focal EXTREMITIES: normal ASSESSMENT AND PLAN: Assessment AND Plan PCOS (polycystic ovarian syndrome) Orders: INSULIN ASSAY BLOOD; Future COMPREHENSIVE METABOLIC PANEL; Future TESTOSTERONE, FREE AND TOTAL, BY EQUILIBRIUM ULTRAFILTRATION MASS SPECTROMETRY; Future Drospirenone-Ethinyl Estradiol (JOVITA, 28,) 3-0.03 mg per tablet; Take 1 tablet by mouth once daily. Abnormal uterine bleeding (AUB) -reviewed ultrasound images with patient- PCOS by definition noted on ultrasound. Class 2 obesity with body mass index (BMI) of 39.0 to 39.9 in adult, unspecified obesity type, unspecified whether serious comorbidity present Orders: INSULIN ASSAY BLOOD; Future COMPREHENSIVE METABOLIC PANEL; Future TESTOSTERONE, FREE AND TOTAL, BY EQUILIBRIUM ULTRAFILTRATION MASS SPECTROMETRY; Future - once labs are returned will start patient on metformin- reviewed how to take with her. Ultimate goal 1000mg xr bid. Pt will send mychart message after 1-2 months if tolerating 1000mg and then we will increase. Risks and SE reviewed. Discussed nutrition. Reivewed weight loss and PCOS. 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 Medical Decision Making: Problems: Moderate: 2+ stable chronic illnesses Data: Unique test(s) ordered: 3+ Risk: Moderate: Drug management and Moderate risk from testing/treatment Medical Decision Making Level: 4 - Moderate [facility]12-20-2024 History of Present illness Narrative* Rhiannon Olson MD - 04/07/2024 3:22 PM EST Esha Francois is a 23 year old female who presents for Concerns regarding painful/irregular menses. Longest she has gone without a cycle is 6 months. Pt reports typical time btwn cyccles is 2 months- pt reports usually bleeds for 5 days. Pt reports typically heavy for day 2-3. Pt reports uses pads for protection- reports on heavy day changes protection 5-6 times. Pt reports does not bleed through clothes. Pt reports clots are size of jeet. Pt reports pain medication works well- mefenamicacid when needed. Pt does have to shave her chin hair, has cystic acne. Reports she would like to get another us - she does feel she has PCOS and wants to know what to do. OB History T0 L0 SAB0 IAB0 Ectopic0 Multiple0 Live Births0 Certified Phlebotomist History LMP: 02/01/2024 (Within Days), Having periods Age at Menarche: Age at First : Age at Menopause: Certified Phlebotomist History Comments: Sexual Activity: Yes; No partner data on record Contraception: Condom, Not used PAST MEDICAL HISTORY Diagnosis Date Anxiety with depression 12/05/2020 Chronic bilateral low back pain without sciatica 07/16/2021 SOTO (generalized anxiety disorder) Overweight (BMI 25.0-29.9) 07/16/2021 Sleep disturbance 12/05/2020 No past surgical history on file. FAMILY HISTORY Problem Relation Age of Onset Narcolepsy Father Social History Tobacco Use Smoking status: Former Types: Cigarettes Smokeless tobacco: Never Tobacco comments: vape Vaping Use Vaping status: current everyday user Substances: Nicotine, Flavoring Devices: Pre-filled pod Substance Use Topics Alcohol use: Never Drug use: Never Current Outpatient Medications Medication Sig venlafaxine ER (EFFEXOR XR) 150 mg 24 hr capsule Take 1 capsule by mouth once daily. lamoTRIgine (LAMICTAL) 200 mg tablet take 1 tablet by mouth once daily Mefenamic Acid 250 mg cap Take 1 capsule by mouth every 6 hours as needed. medroxyPROGESTERone (PROVERA) 10 mg tablet Take 1 tablet by mouth once daily. Take for 10 days of until menses starts. (Patient not taking: Reported on 03/01/2024) No current facility-administered medications for this visit. Allergies As of Date: 04/07/2024 (No Known Allergies) Fully Assessed 04/07/2024 REVIEW OF SYSTEMS Abdomen: no pain : Allergies and current medication updated:Yes SENSITIVE EXAM: The sensitive examination was discussed with the Patient or Patient's Authorized Broadcasting Equipment Mechanic. As applicable, any other physician, advance practice provider, medical student, or other health professional student that will be observing or involved in the sensitive examination for educational or training purposes was discussed with the Patient or Authorized Broadcasting Equipment Mechanic. The Patient or Authorized Broadcasting Equipment Mechanic has agreed to proceed with the sensitive examination. (Sensitive examination includes inspection and/or palpation of the breasts, pelvis, prostate and anorectal regions). EXAM: BP 110/64 Wt 207 lb (93.9kg) LMP 02/01/2024 GENERAL: pleasant, female in no apparent distress HEENT: Normocephalic, atraumatic, and mucus membranes moist NECK: full range of motion DERMATOLOGY: Normal, without lesions, non-icteric, and hirsutism NEURO: alert and oriented x3,exam grossly non-focal EXTREMITIES: normal ASSESSMENT AND PLAN: Assessment & Plan PCOS (polycystic ovarian syndrome) Orders: INSULIN ASSAY BLOOD; Future COMPREHENSIVE METABOLIC PANEL; Future TESTOSTERONE, FREE AND TOTAL, BY EQUILIBRIUM ULTRAFILTRATION MASS SPECTROMETRY; Future Drospirenone-Ethinyl Estradiol (JOVITA, 28,) 3-0.03 mg per tablet; Take 1 tablet by mouth once daily. Abnormal uterine bleeding (AUB) -reviewed ultrasound images with patient- PCOS by definition noted on ultrasound. Class 2 obesity with body mass index (BMI) of 39.0 to 39.9 in adult, unspecified obesity type, unspecified whether serious comorbidity present Orders: INSULIN ASSAY BLOOD; Future COMPREHENSIVE METABOLIC PANEL; Future TESTOSTERONE, FREE AND TOTAL, BY EQUILIBRIUM ULTRAFILTRATION MASS SPECTROMETRY; Future - once labs are returned will start patient on metformin- reviewed how to take with her. Ultimate goal 1000mg xr bid. Pt will send [email or web address] message after 1-2 months if tolerating 1000mg and then we will increase. Risks and SE reviewed. Discussed nutrition. Reivewed weight loss and PCOS. Reviewed senior living risks of PCOS. Medical Decision Making: Problems: Moderate: 2+ stable chronic illnesses Data: Unique test(s) ordered: 3+ Risk: Moderate: Drug management and Moderate risk from testing/treatment Medical Decision Making Level: 4 - Moderate Rhiannon Khan MD documented in this encounterProm[facility]11-19-[facility]24 NoteHNO ID: [id number] Author: CHANG TOM APRN.COMMUNICATION ANALYST Service: ? Author Type: Nurse Practitioner Type: Progress Notes Filed: 03/07/2024 16:10 Note Text: FOLLOW UP - PSYCHIATRIC PROGRESS [...] visit. Either the patient or their legal outside sales representative has been informed of the risks and benefits of -- and alternatives to -- treatment through a remote evaluation and consents to proceed with the evaluation remotely. Reason for Visit: Outpatient follow-up and safety monitoring of previously prescribed psychiatric medication, psychotherapy or other treatment CC: Medication Management I'm here for the assessment to prove I have my conditions. HPI: Patient is here for a follow up for Posttraumatic Stress Disorder, Generalized Anxiety Disorder, MDD, recurrent, moderate, eating disorder, restrict, in remission and sleep disturbances. Started a job at [employer]. Was not able to continue to work. Currently working at [employer] 20 hours a week. Patient states she is applying for SSDI and would like her conditions documented. Discussed bond underwriter is a medical management provider and therapist will have more detailed notes. Patient has been seen for the past 1 1/2 years. She has been steadily increasing Lamictal for mood disorder. Wood Router Hand recommended therapy, she did not follow through. Patient states her mood swings are bad. Increased Lamictal to 300mg daily. Patient has responded well to Lamictal with no adverse reactions. Patient was prescribed control. Patient declined control. Discussed estrogen decreases the effectiveness of Lamotrigine by 50%. Patient understands and will contact bond underwriter is she opts to start control containing estrogen. Patient does not drive Increased binge eating due to stress with recent weight gain. Unsure how much she has gained Patient requesting more proof going on that makes it hard to work. Past Meds: Zoloft - deeper depression Risks and benefits of the medication, including any black box warnings, were discussed with the patient. Interval Progress: Same (Improved PHQ-9 score and SOTO-7 Score) PATIENT DATA: 08/09/2023 11/15/2023 02/29/2024 SOTO - 7 SCORES Score 21 21 21 15 08/09/2023 11/15/2023 02/29/2024 PHQ-9 Score 19 19 19 16 PROMIS Global Health PROMIS Global Health - (T-Scores - the mean of general population = 50. Five points is a clinically meaningful difference.) 05/20/2022 08/16/2022 11/13/2022 Physical T-Score 32.4 29.6 37.4 Mental T-Score 41.1 28.4 33.8 PAST MEDICAL HISTORY PAST MEDICAL HISTORY Diagnosis Date Anxiety with depression 12/05/2020 Chronic bilateral low back pain without sciatica 07/16/2021 SOTO (generalized anxiety disorder) Overweight (BMI 25.0-29.9) 07/16/2021 Sleep disturbance 12/05/2020 PAST SURGICAL HISTORY No past surgical history on file. CURRENT MEDICATIONS Current Outpatient Medications Medication Sig Dispense Refill [...] cold or heat intolerance, polyuria, polydipsia and goiter. NEURO: Negative for headaches, syncope, seizures and paralysis. PFSH: See HPI VITAL SIGNS: Vitals There were no vitals filed for this visit. MENTAL STATUS EXAM: CONSTITUTIONAL: Appropriately dressed, Obese ORIENTATION: Person, Place, Time and Situation MEMORY: Recent intact CONCENTRATION: Scattered, Variable, and Preoccupied (more content not included)...[facility]11-13-2024 NoteHNO ID: [id number] Author: PLACIDO ALCANTAR APRN.COMMUNICATION ANALYST Service: ? Author Type: Nurse Practitioner Type: Progress Notes Filed: 03/01/2024 14:27 Note Text: Subjective HPI HPI Esha Francois is a 23 year old female who presents today for CC of sore throat, cough, congestion. This started today. Has tried nothing for relief. Symptoms are worsened by nothing. Risk factors sick exposures at home. .Patient presents with: Sore Throat: nasal congestion, drainage and cough x today PAST MEDICAL HISTORY Diagnosis Date Anxiety with depression 12/05/2020 Chronic bilateral low back pain without sciatica 07/16/2021 SOTO (generalized anxiety disorder) Overweight (BMI 25.0-29.9) 07/16/2021 Sleep disturbance 12/05/2020 No past surgical history on file. ALLERGIES Patient has no known allergies. MEDICATIONS lamoTRIgine (LAMICTAL) 200 mg tablet take 1 tablet by mouth once daily venlafaxine ER (EFFEXOR XR) 150 mg 24 hr capsule Take 1 capsule by mouth once daily. Mefenamic Acid 250 mg cap Take 1 capsule by mouth every 6 hours as needed. norgestimate 0.25 mg-ethinyl estradiol 35 mcg (SPRINTEC) 0.25-35 mg-mcg per tablet Take 1 tablet by mouth once daily. medroxyPROGESTERone (PROVERA) 10 mg tablet Take 1 tablet by mouth once daily. Take for 10 days of until menses starts. (Patient not taking: Reported on 03/01/2024) FAMILY HISTORY Problem Relation Age of Onset Narcolepsy Father Social History Tobacco Use Smoking status: Former Types: Cigarettes Smokeless tobacco: Never Tobacco comments: vape Vaping Use Vaping status: current everyday user Substances: Nicotine, Flavoring Devices: Pre-filled pod Substance Use Topics Alcohol use: Never Drug use: Never Review of Systems Constitutional: Negative for fever. HENT: Positive for congestion and sore throat. Negative for ear pain and nosebleeds. Respiratory: Positive for cough and sputum production. Negative for shortness of breath and wheezing. Cardiovascular: Negative for chest pain. Musculoskeletal: Negative for neck pain. Skin: Negative for itching and rash. Objective Blood pressure 122/78, pulse 94, temperature 36.7 ?C (98 ?F), resp. rate 16, weight 94.7 kg (208 lb 12.4 oz), last menstrual period 10/15/2023, SpO2 98%. Physical Exam Constitutional: General: She is not in acute distress. Appearance: She is not toxic-appearing or diaphoretic. HENT: Head: Normocephalic and atraumatic. Nose: Nose normal. Mouth/Throat: Pharynx: Uvula midline. No pharyngeal swelling, oropharyngeal exudate, posterior oropharyngeal erythema or uvula swelling. Eyes: General: Lids are normal. No scleral icterus. Right eye: No discharge. Left eye: No discharge. Conjunctiva/sclera: Conjunctivae normal. Pupils: Pupils are equal, round, and reactive to light. Neck: Trachea: Trachea normal. Cardiovascular: Rate and Rhythm: Normal rate and regular rhythm. Heart sounds: Normal heart sounds. Pulmonary: Effort: Pulmonary effort is normal. Breath sounds: Normal breath sounds. Musculoskeletal: Cervical back: Normal range of motion and neck supple. Lymphadenopathy: Cervical: No cervical adenopathy. Right cervical: No superficial cervical adenopathy. Left cervical: No superficial cervical adenopathy. Skin: Findings: No rash. Neurological: Mental Status: She is alert and oriented to person, place, and time. ASSESSMENT/PLAN: 1. Sore throat - ICD9: 462, ICD10: J02.9 - suspect viral - Group A strep molecular testing negative - Discussed supportive care treatment with fluids, rest and analgesia. - The patient should follow up in 3-5 days if symptoms persist or worsen - STREP A MOLECULAR (POC) - PREDNISONE 20 MG TABLET Placido Alcantar APRN.[facility]11-13-2024 History of Present illness Narrative* Placido Alcantar APRN.[facility] - 03/01/2024 2:06 PM EST Subjective HPI HPI Esha Francois is a 23 year old female who presents today for CC of sore throat, cough, congestion. This started today. Has tried nothing for relief. Symptoms are worsened by nothing. Risk factors sick exposures at home. .Patient presents with: Sore Throat: nasal congestion, drainage and cough x today PAST MEDICAL HISTORY Diagnosis Date Anxiety with depression 12/05/2020 Chronic bilateral low back pain without sciatica 07/16/2021 SOTO (generalized anxiety disorder) Overweight (BMI 25.0-29.9) 07/16/2021 Sleep disturbance 12/05/2020 No past surgical history on file. ALLERGIES Patient has no known allergies. MEDICATIONS lamoTRIgine (LAMICTAL) 200 mg tablet take 1 tablet by mouth once daily venlafaxine ER (EFFEXOR XR) 150 mg 24 hr capsule Take 1 capsule by mouth once daily. Mefenamic Acid 250 mg cap Take 1 capsule by mouth every 6 hours as needed. norgestimate 0.25 mg-ethinyl estradiol 35 mcg (SPRINTEC) 0.25-35 mg-mcg per tablet Take 1 tablet bymouth once daily. medroxyPROGESTERone (PROVERA) 10 mg tablet Take 1 tablet by mouth once daily. Take for 10 days of until menses starts. (Patient not taking: Reported on 03/01/2024) FAMILY HISTORY Problem Relation Age of Onset Narcolepsy Father Social History Tobacco Use Smoking status: Former Types: Cigarettes Smokeless tobacco: Never Tobacco comments: vape Vaping Use Vaping status: current everyday user Substances: Nicotine, Flavoring Devices: Pre-filled pod Substance Use Topics Alcohol use: Never Drug use: Never Review of Systems Constitutional: Negative for fever. HENT: Positive for congestion and sore throat. Negative for ear pain and nosebleeds. Respiratory: Positive for cough and sputum production. Negative for shortness of breath and wheezing. Cardiovascular: Negative for chest pain. Musculoskeletal: Negative for neck pain. Skin: Negative for itching and rash. Objective Blood pressure 122/78, pulse 94, temperature 36.7 C (98 F), resp. rate 16, weight 94.7 kg (208 lb 12.4 oz), last menstrual period 10/15/2023, SpO2 98%. Physical Exam Constitutional: General: She is not in acute distress. Appearance: She is not toxic-appearing or diaphoretic. HENT: Head: Normocephalic and atraumatic. Nose: Nose normal. Mouth/Throat: Pharynx: Uvula midline. No pharyngeal swelling, oropharyngeal exudate, posterior oropharyngeal erythema or uvula swelling. Eyes: General: Lids are normal. No scleral icterus. Right eye: No discharge. Left eye: No discharge. Conjunctiva/sclera: Conjunctivae normal. Pupils: Pupils are equal, round, and reactive to light. Neck: Trachea: Trachea normal. Cardiovascular: Rate and Rhythm: Normal rate and regular rhythm. Heart sounds: Normal heart sounds. Pulmonary: Effort: Pulmonary effort is normal. Breath sounds: Normal breath sounds. Musculoskeletal: Cervical back: Normal range of motion and neck supple. Lymphadenopathy: Cervical: No cervical adenopathy. Right cervical: No superficial cervical adenopathy. Left cervical: No superficial cervical adenopathy. Skin: Findings: No rash. Neurological: Mental Status: She is alert and oriented to person, place, and time. ASSESSMENT/PLAN: 1. Sore throat - ICD9: 462, ICD10: J02.9 - suspect viral - Group A strep molecular testing negative - Discussed supportive care treatment with fluids, rest and analgesia. - The patient should follow up in 3-5 days if symptoms persist or worsen - STREP A MOLECULAR (POC) - PREDNISONE 20 MG TABLET Placido Alcantar APRN.COMMUNICATION ANALYST documented in this encounterPromed[facility]10-03-2024 Telephone encounter Note * Telephone Encounter - Laura Garcia MD - 01/20/2024 4:38 PM EDT She should start the ocps the first Wednesday on her menses. Laura Garcia MD [facility]10-03-2024 Miscellaneous Notes* Telephone Encounter - Laura Garcia MD - 01/20/2024 4:38 PM EDT She should start the ocps the first Wednesday on her menses. Laura Garcia MD documented in this encounterPromedica [facility]10-03-2024 NoteHNO ID: [id number] Author: LAURA GARCIA MD Service: ? Author Type: Physician Type: Progress Notes Filed: 01/20/2024 12:34 Note Text: Esha Francois is a 23 year old female who presents for problem visit. HPI: Patient reports irregular menses. Menarche was age 13. Since age 15 she has gone up to 6 months without having menses. Her most recent menses was in September. OB History T0 L0 SAB0 IAB0 Ectopic0 Multiple0 Live Births0 Certified Phlebotomist History LMP: 02/22/2023 (Exact Date), Having periods Age at Menarche: Age at First : Age at Menopause: Certified Phlebotomist History Comments: Sexual Activity: Yes; No partner [...] Never Tobacco comments: vape Vaping Use Vaping status: current everyday user Substances: Nicotine, Flavoring Devices: Pre-filled pod Substance Use Topics Alcohol use: Never Drug use: Never Current Outpatient Medications Medication Sig lamoTRIgine (LAMICTAL) 200 mg tablet Take 1 tablet by mouth once daily. venlafaxine ER (EFFEXOR XR) 150 mg 24 hr capsule Take 1 capsule by mouth once daily. medroxyPROGESTERone (PROVERA) 10 mg tablet Take 1 tablet by mouth once daily. Etonogestrel-Ethinyl Estradiol (NUVARING) 0.12-0.015 mg/24 hr vaginal ring Use 1 Each vaginally as directed. Mefenamic Acid 250 mg cap Take 1 capsule by mouth every 6 hours as needed. No current facility-administered medications for this visit. Allergies As of Date: 01/20/2024 (No Known Allergies) Fully Assessed 04/16/2023 Allergies and current medication updated:Yes SENSITIVE EXAM: Not performed EXAM: LMP 02/22/2023 GENERAL: pleasant, female in no apparent distress ASSESSMENT AND PLAN: 23yo female with oligomenorrhea Reviewed labs and US from 06/12. There is no evidence of PCOS. Discussed R/B/A of management options. Patient wishes to proceed with ocps. Reviewed interaction with lamictal and patient is aware. Will induce menses with provera. All questions answered AND patient agrees with plan. Medical Decision Making: Problems: Moderate: New problem with uncertain prognosis Data: Unique test result(s) reviewed: 3+ Risk: Moderate: Drug management Medical Decision Making Level: 4 - Moderate Laura Garcia [facility]10-03-2024 History of Present illness Narrative* Laura Garcia MD - 01/20/2024 11:13 AM EDT Esha Francois is a 23 year old female who presents for problem visit. HPI: Patient reports irregular menses. Menarche was age 13. Since age 15 she has gone up to 6 months without having menses. Her most recent menses was in September. OB History T0 L0 SAB0 IAB0 Ectopic0 Multiple0 Live Births0 Certified Phlebotomist History LMP: 02/22/2023 (Exact Date), Having periods Age at Menarche: Age at First : Age at Menopause: Certified Phlebotomist History Comments: Sexual Activity: Yes; No partner [...] Never Tobacco comments: vape Vaping Use Vaping status: current everyday user Substances: Nicotine, Flavoring Devices: Pre-filled pod Substance Use Topics Alcohol use: Never Drug use: Never Current Outpatient Medications Medication Sig lamoTRIgine (LAMICTAL) 200 mg tablet Take 1 tablet by mouth once daily. venlafaxine ER (EFFEXOR XR) 150 mg 24 hr capsule Take 1 capsule by mouth once daily. medroxyPROGESTERone (PROVERA) 10 mg tablet Take 1 tablet by mouth once daily. Etonogestrel-Ethinyl Estradiol (NUVARING) 0.12-0.015 mg/24 hr vaginal ring Use 1 Each vaginally as directed. Mefenamic Acid 250 mg cap Take 1 capsule by mouth every 6 hours as needed. No current facility-administered medications for this visit. Allergies As of Date: 01/20/2024 (No Known Allergies) Fully Assessed 04/16/2023 Allergies and current medication updated:Yes SENSITIVE EXAM: Not performed EXAM: LMP 02/22/2023 GENERAL: pleasant, female in no apparent distress ASSESSMENT AND PLAN: 23yo female with oligomenorrhea Reviewed labs and US from 06/12. There is no evidence of PCOS. Discussed R/B/A of management options. Patient wishes to proceed with ocps. Reviewed interaction with lamictal and patient is aware. Will induce menses with provera. All questions answered & patient agrees with plan. Medical Decision Making: Problems: Moderate: New problem with uncertain prognosis Data: Unique test result(s) reviewed: 3+ Risk: Moderate: Drug management Medical Decision Making Level: 4 - Moderate Laura Garcia MD documented in this encounterPromedica Fost[facility]09-09-2024 NoteHNO ID: [id number] Author: CASTILLO CAMERON, PhD Service: ? Author Type: Psychologist Type: Progress Notes Filed: 12/27/2023 14:34 Note Text: Behavioral Sleep Medicine Follow up Castillo Cameron, Ph.D., [facility] -- Psychologist ([place] License [id number]) I have communicated my name and active licensure. The patient's identity and physical location were verified at the time of this visit. Either the patient or their legal outside sales representative has been informed of the risks and benefits of -- and alternatives to -- treatment through a remote evaluation and consents to proceed with the evaluation remotely. Contact Method: Zoom Patient Confirmed Address: [facility] [address] [place] [id number] Patient Confirmed Telephone #: [phone] Time: 27 min Session # 01 TREATMENT MODALITIES: Behavioral skills for sleep Motivational Interviewing SUBJECTIVE/OBJECTIVE: Patient update: I tried my own method - using marijuana. This has helped her go to bed earlier and wake up earlier -- awake during the day and asleep at night for the most part. Tends to feel like she's over thinking at bedtime, which precludes falling asleep 2-3x/night. Thinking about life stressors, financial stressors. Doesn't have a good way to manage this. She does not have a wind down routine -- mostly gets into bed with boyfriend (he falls asleep earlier) to spend time together. Update on medication use: started using marijuana nightly -- 1 hr before bed; she is unaware of strain or CBD/THC content Behavioral changes made since last session: Vaping/nicotine AND Caffeine use -- discussed how this can contribute to anxiety at bedtime Vaping in evening is less due to addition of marjuana Pt did not complete sleep logs, were mailed to her and she said she started them but then lost them Bed: 10PM -- Usually on her phone or up with her boyfriend Asleep by 12-3AM Sleeping through the night Wake: 9-10AM to use the bathroom and doesn't feel like she needs to go back to sleep TST = 6-10 hrs Still experiencing EDS during the day - but able to resist needing to take a nap and able to push through She has been able to start a job tomorrow due to these changes ASSESSMENT: none completed 03/22/2023 08/09/2023 11/15/2023 Insomnia Severity Index Score 20 18 18 18 PHQ 07/14/2023 08/09/2023 11/15/2023 PHQ-9 Score 17 19 19 19 SOTO 07/14/2023 08/09/2023 11/15/2023 SOTO - 7 SCORES Score 19 21 21 21 DIAGNOSIS: PTSD Major Depressive Disorder, Recurrent, Moderate Circadian Rhythm Disorder, Delayed Type Excessive Daytime Sleepiness 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 Continue with behavioral skills for insomnia --improvement in circadian rhythm AND EDS with marijuana use at night; she is satisfied with these changes 2. Discussed strategies for managing anxiety in evening AND bedtime --Scheduled worry time in earlier evening -- once boyfriend falls asleep, Re-runs or Insight Timer --Vaping/nicotine AND Caffeine use -- discussed how this can contribute to anxiety at bedtime 3. Follow up scheduled 02/03 @ 4PM Castillo Cameron, PhD, [facility] Psychologist ([place] License [id number]) [facility] Telephone encounter Note* Telephone Encounter - Tiffany Vidal RN - 12/14/2023 4:14 PM EDT WENDIE requested to call patient to schedule appt with one of physicians in office. Patient scheduled for later January per her request. Tiffany Vidal RN [facility]08-27-2024 Miscellaneous Notes* Telephone Encounter - Tiffany Vidal RN - 12/14/2023 4:14 PM EDT WENDIE requested to call patient to schedule appt with one of physicians in office. Patient scheduled for later January per her request. Tiffany Vidal RN documented in this encounterPromedica Fostoria [facility]08-16-2024 Telephone encounter Note * Telephone Encounter - Radha Douglass RN - 12/03/2023 4:01 PM EDT Mychart message sent to patient. Left message for Pt informing her of this. Radha Douglass RN [facility]08-16-2024 Miscellaneous Notes* Telephone Encounter - Radha Douglass RN - 12/03/2023 4:01 PM EDT Mychart message sent to patient. Left message for Pt informing her of this. Radha Douglass RN documented in this encounterPromedica Fostoria [facility]08-16-2024 Telephone encounter Note * Telephone Encounter - Holly Coleman APRN.CNM - 12/03/2023 3:21 PM EDT Order signed. Recommend appointment to discuss further after results if any issues. Mirian Morales APRN.CNM [facility] Work Phone: 1(404) 778-538008-16-2024 Miscellaneous Notes* Telephone Encounter - Holly Coleman APRN.CNM - 12/03/2023 3:21 PM EDT Order signed. Recommend appointment to discuss further after results if any issues. Mirian Morales APRN.CNM * Telephone Encounter - Radha Douglass RN - 12/03/2023 3:08 PM EDT Pt states LMP 11/07. Wanting HCG level drawn to confirm. HCG order pending. Pt states able to get blood work today if ordered. See RFMarqhart messages. Radha Douglass RN documented in this encounterPromedica Fostoria [facility]08-16-2024 Telephone encounter Note * Telephone Encounter - Radha Douglass RN - 12/03/2023 3:08 PM EDT Pt states LMP 11/07. Wanting HCG level drawn to confirm. HCG order pending. Pt states able to get blood work today if ordered. See [email or web address] messages. Radha Douglass RN [facility]02-27-2024 Discharge summary Author Allen Lopes [facility] June 15, 2023 5:51pm Note Date/Time June 15, 2023 3:35pm [facility] Medical Records Department [address] [place] [address] Emergency Department Summary 06/15/23 MR#: [id number] Acct: [id number] Name: ESHA FRANCOIS Rep #: [id number] : 2000 22 From: Allen Lopes MD PCP: Care Physician,No Primary Status :REG ER Location: ED HPI HPI - GI History of Present Illness Chief Complaint: Abd Pain Detail of Chief Complaint: Lower abdominal pain and pelvic pain beginning today. Informant: patient Abdominal Pain/Flank Pain Onset: Today and Hours Context: Gradual Onset Timing: Continuous Quality: Aching and Cramping Location: RLQ, LLQ and - (Pelvic pain) Current Severity: Mild Maximum Severity: Moderate Worsened by: Nothing Nausea/Vomiting/Emesis GI Symptom: Positive for Nausea Onset: Today Severity: Mild Diarrhea/Melena/Hematochezia GI Symptom: Negative for Diarrhea, Melena or Hematochezia Associated Symptoms Associated Symptoms: Negative for Dysuria, Frequency, Hematuria or Urgency Narrative Narrative: 22-year-old female only past medical history is about a year ago had similar episode with a ruptured right ovarian cyst. No prior abdominal or pelvic surgery. She is never been before. She does have irregular at times heavy menstrual periods. Patient states this morning around 7 AM started havinglower abdominal cramping that has now come up in her abdomen. Nausea. No fever. No dysuria. No diarrhea or constipation. No melena. Year ago she had similar episode that was not as severe as today and was secondary to a ruptured ovarian cyst. Prior similar symptoms: Yes Recent Illness/Hospitalization: No PFSH PFSH Home Medications venlafaxine 150 mg capsule,extended release 24 hr (Effexor XR) 150 mg PO DAILY 06/09/21 [History Last Taken Unknown] dicyclomine 10 mg capsule 20 mg (2 x 10 mg) PO TIDAC #20 CAPSULES 05/19/22 [Rx Last Taken Unknown] ondansetron 4 mg disintegrating tablet 4 mg PO Q8H PRN PRN Nausea #10 tabs 05/19/22 [Rx Last Taken Unknown] lamotrigine 200 mg tablet 200 mg PO DAILY 06/15/23 [History Last Taken Unknown] Allergy/AdvReac Type Severity Reaction Status Date / Time No Known Allergies Allergy Verified 06/15/23 15:18 Surgical History no surgical history no surgical history Social History Smoking Status: Never smoker ROS ROS ED ROS Narrative Lower abdominal pain. Nausea. Currently on her menstrual period. Review of Systems ROS Unobtainable: Denies due to encephalopathy Constitutional Constitutional ED: Denies chills or fever(s) ENT ENT ED: Denies ear pain Cardiovascular Cardiovascular: Denies chest pain Respiratory/Chest Respiratory/Chest: Denies cough or dyspnea Gastrointestinal Gastrointestinal: Reports abdominal pain and nausea; Denies constipation, diarrhea, melena or vomiting Genitourinary Genitourinary ED: Denies dysuria or hematuria Musculoskeletal Musculoskeletal: Denies arthralgias, back pain, myalgias or neck pain Integumentary Denies abscess, Abrasions or rash Neurologic Neurologic: Denies headache(s), paresthesias or weakness Psychiatric Psychiatric: Denies anxiety or depression Endocrine Endocrinology: Denies polydipsia Hematologic/Lymphatic Hematologic/Lymphatic: Denies easy bleeding, easy bruising or lymphadenopathy Allergic/Immunologic Allergic/Immunologic ED: Denies mouth swelling, tongue swelling or urticaria EXAM Physical Exam Narrative Exam Narrative: 22-year-old female no acute distress vital signs stable she is tachycardic. H EENT exam unremarkable. Moist mucous membranes. Lungs clear to auscultation. Heart tachycardic rate about 110 no murmur. Abdomen diffusely tender no peritoneal signs mainly suprapubic and both lower quadrants. Not specifically McBurney's point. No Harrison sign. No hernia or mass. No distention or obstruction. No signs of trauma. Back nontender. Moving all 4 extremities. Awake and alert. She is sitting upright in bed. Const Vital Signs: 06/15/23 15:17 Temperature 97.8 F Temperature Source Temporal Pulse Rate 128 H Respiratory Rate 16 Blood Pressure 146/93 H Blood Pressure Mean 110 Pulse Ox 99 Oxygen Delivery Method Room Air Positive well nourished and well developed; Negative for cachectic, contracturesor unkempt General Appearance ED: well developed; Negative for unkempt, cachectic, contractures or pallor Nutritional Appearance: Negative for cachectic HEENT Reports moist mucous membranes normocephalic and atraumatic; Negative for trauma or tenderness Eyes PERRL and EOMs intact bilaterally General Eye ED: Negative for pale conjunctiva or scleral icterus Neck no lymphadenopathy, supple and no JVD General: Negative for tenderness Carotids: Negative for other Lymph Lymphatic: Negative for other Resp normal respiratory effort and clear to auscultation bilaterally Effort and Inspection: Negative for respiratory distress Auscultation: Negative for rales, rhonchi or wheezes Cardio regular rhythm, S1 normal heart sound, S2 normal heart sound and no murmurs; Negative for regular rate Rate: tachycardic Rhythm: Negative for abnormal rhythm GI non-distended and no masses; Negative for non-tender Inspection: Negative for abdominal distention Auscultation: normoactive bowel sounds Palpation: soft and tender; Negative for guarding or rebound tenderness present Back/Spine no CVA tenderness General Back: Negative for CVA tenderness Cervical Spine: Negative for cervical spine tenderness Thoracic Spine / Upper Back: Negative for thoracic spinal tenderness Lumbar Spine / Lower Back: Negative for lumbar spinal tenderness Coccyx: Negative for other Extremity full ROM General Extremety ED: Negative for edema or tenderness General Extremity: Negative for edema Neuro CN's II-XII intact bilaterally and moves all extremities Sensorium / Orientation: alert, oriented to person, oriented to place and oriented to time; Negative for orientation impaired, confused, lethargic or stuporous Motor Exam: strength 5/5 throughout; Negative for general weakness or strength abnormal Psych mental status grossly normal and thought process normal Appearance: Negative for unkempt Attitude: No agitated Mood & Affect: Negative for depressed, anxious or tearful Skin no wounds General Skin Exam: Negative for jaundice or pallor Lesions: no lesions Rashes: no rashes Trauma: Negative for abrasion Nails: Negative for discolored MDM MDM MDM Narrative Medical decision making narrative: 22-year-old female lower abdominal pelvic pain possibly secondary ruptured ovarian cyst rule out ectopic versus versus UTI. Clinically feel lesslikely to be appendicitis I do not think this is a viral syndrome. CAT scan labs pending. Treated with morphine for pain 6 mg and Zofran. Repeat exam patient doing well at 5:45 PM. Abdomen is benign. She and I and the other female present in room went over all of her normal test results. Including her CAT scan. This may be secondary to mesenteric adenitis versus other etiologies but there is nothing else visualized on the CAT scan. They didnot see any significant cyst or pelvic fluid. She will be discharged home. Shehas nausea medication at home. Motrin and Tylenol for pain. Outpatient follow-up as needed. History & Record Review Additional record(s) reviewed:: Prior inpatient record, Prior outpatient record,Prior ED visit and Prior labs Lab Data Attestation: I reviewed the patient's lab results. Lab results narrative: White count 9. H&H of 15 and 46. Platelets 403. Electrolytes unremarkable gap of 5 normal BUN and creatinine. Glucose 114. Liver enzymes normal. test negative. UA shows blood but no nitrates no red or white cells. Rare bacteria. CAT scan shows mesenteric lymph nodes. Otherwise no acute abnormality as read by the radiologist. Labs: Laboratory Results - last 24 hr 06/15/23 15:33 WBC 9.3 RBC 5.50 H Hgb 15.0 Hct 46.8 MCV 85.1 MCH 27.3 MCHC 32.1 RDW Std Deviation 38.8 RDW Coeff of Rae 12.6 Plt Count 403 MPV 9.3 Immature Gran % (Auto) 0.200 Neut % (Auto) 83.6 H Lymph % (Auto) 9.4 L [place] % (Auto) 5.9 Eos % (Auto) 0.5 Baso % (Auto) 0.4 Absolute Neuts (auto) 7.7 Absolute Lymphs (auto) 0.87 Nucleated RBC % 0 Sodium 140 Potassium 3.9 Chloride 113 H Carbon Dioxide 22.0 Anion Gap 5 BUN 14 Creatinine 0.90 Estim Creat Clear Calc 100.39 Est GFR (MDRD) Af Amer 102 Est GFR (MDRD) Non-Af 85 BUN/Creatinine Ratio 15.6 Glucose 114 H Calcium 9.4 Total Bilirubin 0.90 AST 11 L ALT 21 Alkaline Phosphatase 92 Total Protein 7.6 Albumin 3.9 Globulin 3.7 Albumin/Globulin Ratio 1.1 Serum , Qual NEGATIVE Urine Color Yellow Urine Clarity Sl. Cloudy Urine pH 7.0 Ur Specific [place] 1.010 Urine Protein 100 H Urine Glucose (UA) Normal Urine Ketones 5 H Urine Occult Blood 250 H Urine Nitrite Negative Urine Bilirubin Negative Urine Urobilinogen 1 H Ur Leukocyte Esterase 25 H Urine RBC 0-5 SEEN Urine WBC 0 SEEN Ur Squamous Epith Cells 0-5 SEEN Urine Bacteria RARE Urine Mucus 0 SEEN Radiography Diagnostic Testing: Clinical Impression(s) from Imaging Studies Abdomen/Pelvis CT 06/15/23 15:28 IMPRESSION: 1. Reactive mesenteric lymph nodes. 2. Mild hepatic steatosis. Electronically Signed: Galen Liao MD at 16:42 EST Reading Location ID and State: [address] [place] [address] Tel , Service support , Discharge Plan Triage Chief Complaint: Abd Pain ED Provider: Allen Lopes Dx/Rx/DC Orders Clinical Impression: Abdominal pain Instructions: Abdominal Pain Prescriptions: No Action venlafaxine [Effexor XR] 150 mg capsule,extended release 24hr 150 mg PO DAILY Patient Comments: take 1 capsule by mouth once daily ondansetron 4 mg tablet,disintegrating 4 mg PO Q8H PRN PRN (Reason: Nausea) Qty: 10 0RF dicyclomine 10 mg capsule 20 mg PO TIDAC Qty: 20 0RF lamotrigine 200 mg tablet 200 mg PO DAILY Patient Comments: take 1 tablet by mouth once daily Primary Care Provider: Care Physician,No Primary Referrals: Laura Garcia MD [Med Staff - Active Staff] - As Needed Care Physician,No Primary [Primary Care Provider] - Activity Restrictions/Additional Instructions: Zofran or your home nausea medications as needed for nausea. Motrin and Tylenol for pain. Follow-up if not improving. Disposition Disposition: Home, Self Care What to do if you have Problems For any increased pain, shortness of breath, bleeding, nausea or vomiting, chestpain, or any unexpected problems, contact your Primary Care Provider. Call [facility] ([phone]) or report to the closest Emergency Room. Call 911 if necessary. 06/15/23 1751 <Electronically signed by Allen Lopes MD> Cosigner Signature (if applicable): CC: No Primary Care Physician ~ Signed [facility] Work Phone: [phone]) 455-777402-23-2024 Miscellaneous Notes* Telephone Encounter - Kourtney Okeefe APRN.CNM - 06/11/2023 5:08 PM EST Sent patient message. Kourtney Okeefe APRN.CNM * Telephone Encounter - Ni Clancy RN - 06/11/2023 4:02 PM EST Patient is currently taking Provera and having cramps like she is going to start her period. She take Mefenamic Acid during her cycle for cramping. Called asking if it's ok that she takes the Mefenamic Acid while taking the Provera. Ni Clancy, RN documented in this encounterPromedica [facility]02-14-2024 Miscellaneous Notes* Telephone Encounter - Kourtney Okeefe APRN.CNM - 06/02/2023 5:18 PM EST Rx sent for Provera 10 mg PO [...] period. Kourtney Okeefe APRN.CNM documented in this encounterPromedica Fostoria [facility]02-14-2024 History of Present illness Narrative* Yvrose Huerta RDMS - 06/02/2023 1:00 PM EST Radiology Service Progress Note PATIENT NAME: Esha Francois DATE OF SERVICE: June 02, 2023 TIME: 1:36 PM PATIENT IDENTITY VERIFICATION COMPLETED USING TWO (2) IDENTIFIERS: Name and Date of confirmedby patient verbally. FALL SCREENING: Has the patient had 2 falls in the last year or 1 fall with injury or currently using an Ambulatory Assistive Device (Walker, Cane, Wheelchair, Crutches, etc.)? No PATIENT GENDER DATA: Female. status: : No status: NO. PATIENT RELEVANT IMPLANT DATA REVIEWED: Not Applicable PATIENT PRESENTS WITH AN IMPLANTABLE OR ATTACHED ELECTRONIC MUSICAL INSTRUMENT REPAIRER: No RADIOLOGY DEPARTMENT: Ultrasound PERIPHERAL IV DATA: Not applicable SIGNED BY: Yvrose Huerta RDMS June 02, 2023 1:36 PM documented in this encounterPromedica Fost[facility]02-01-2024 History of Present illness Narrative* Kourtney Okeefe APRN.[facility] - 05/20/2023 11:38 AM EST Esha Francois is a 22 year old female who presents for problem visit of irregular periods. Continues to skip several months. LMP was February 2023. Has not had any bleeding or spotting since. Reports taking several HPT's that are negative. Not using control. Does not want to use hormonaloptions due to concern over side effects to her mood. She desires but isn't actively trying to conceive. C/O irregular pelvic pain. Describes pain as sharp and shooting. History of ruptured ovarian cyst. REVIEW OF [...] results Kourtney Okeefe APRN.CNM documented in this encounterPromedica Fost[facility]12-07-2023 Miscellaneous Notes* Telephone Encounter - Ansley Welch RN - 03/25/2023 4:11 PM EST Patient notified of results and provider's instructions. Patient verbalizes understanding. Ansley Welch RN * Telephone Encounter - Kelsie Laguerre LPN - 03/25/2023 1:43 PM EST TC to pt. LM to call office, ask for triage nurse to get results. Kelsie Laguerre LPN * Telephone Encounter - Jocelin Munoz PA - 03/25/2023 9:13 AM EST Please let patient know she tested positive for COVID-19. Supportive measures at home. Isolate for 5 days. Mask for 5 days documented in this encounterPromedica Fostoria [facility]12-06-2023 Instructions* Patient Instructions* Jocelin Munoz PA - 03/24/2023 3:08 PM [...] to thin out mucus documented in this encounterPromedica Fostoria [facility] Hospital12-06-2023 History of Present illness Narrative* Jocelin Munoz PA - 03/24/2023 3:00 PM EST This note was created using [employer]. Subjective Esha Francois is a 22 year old female. HPI 22-year-old female presents for cough, congestion, sore throat starting this morning. No fevers. States her brother was recently sick with similar symptoms. No vomiting or diarrhea. Still able toeat and drink. Has not done a home [...] ER evaluation. MARIXA Engel documented in this encounterPromedica Fostoria [facility]11-08-2023 Miscellaneous Notes* Telephone Encounter - Tiffany Vidal RN - 02/24/2023 8:15 AM EST Last saw CP 02/03/23. Requested Prescriptions Pending Prescriptions Disp Refills Mefenamic Acid 250 mg cap 30 capsule 6 Sig: Take 1 capsule by mouth every 6 hours as needed. Tiffany Vidal RN documented in this encounterPromedica Fostoria [facility]10-18-2023 History of Present illness Narrative* Kourtney Okeefe APRN.[facility] - 02/03/2023 1:16 PM EDT Esha Francois is a 22 year old female who presents for problem visit of irregular periods. C/Ocycles every 33 days and cycles last 5 days. First day is painful with cramping. Second day is heaviest day of bleeding. Wearing pads and changing every couple of hours. C/O increased clots as well. Skipped period in December and became concerned. Did have period the first part of January which was heavier than usual. Kept appointment today to discuss options for regulation of cycles. Currently sexually active and does not use any control. Desires but isn't actively trying.Stated she was told she has PCOS in the past and may be difficult. She does not want to take OCP due to risk of hormonal imbalances. Currently taking Lamictal and Effexor for mood. Certified Phlebotomist History LMP: 01/17/2023 (Exact Date), Having periods Age at Menarche: Age at First : Age at Menopause: Certified Phlebotomist History Comments: Sexual Activity: Yes; No partner [...] exam Kourtney Okeefe APRN.CNM documented in this encounterPromedica Fost[facility]09-18-2023 History of Present illness Narrative* Rimma Fuentes, PT - 01/04/2023 6:13 PM EDT Episode Visit Count: 4 Therapist That Will [...] session with fatigue and expected muscle soreness. Shedemonstrated difficulty with squats, but improved after cues given. The patient will continue to benefit from ongoing skilled physical therapy to progress toward set goals. PLAN FOR NEXT VISIT: Continue with core strengthening, possibly use Hoist machine. SUBJECTIVE: Pt reports that her back is hurting today. Pt reports that she was able to complete herexercises 1 day since last visit. Pt reports [...] : 1801 Session Stop Time : 1839 CLIFFORD Mulligan PT documented in this encounterPromedica Fostoria [facility]09-13-2023 History of Present illness Narrative* Rod Prince, PT - 12/30/2022 5:19 PM EDT Episode Visit Count: 3 Therapist That Will [...] 1745 CLIFFORD Mulligan PT documented in this encounterPromedica Fostoria [facility] Hospital09-11-2023 History of Present illness Narrative* Rimma Funetes, PT - 12/28/2022 6:03 PM EDT Episode Visit Count: 2 Therapist That Will [...] complete HEP consistently or at all due toher sleep disorder. Pain: Pain Pain Level: 5 [...] : 0645 Bernie Gustafson, CLIFFORD Fuentes PT documented in this encounterPromedica Fostoria [facility]08-24-2023 Instructions* Patient Instructions* Susanna Barriga MD - 12/10/2022 5:41 PM EDT Please schedule w/ Dr. Castillo Cameron of Behavioral Sleep Medicine Appointments: [phone] documented in this encounterPromedica Fostoria [facility] Hospital08-23-2023 NoteHNO ID: [id number] Author: Susanna Barriga MD Service: ? Author Type: Physician Type: Progress Notes Filed: 12/10/2022 5:42 PM Note Text: [facility] Follow up/ Established [...] visit. Either the patient or their legal outside sales representative has been informed of the risks [...] anxiety, depression Clinical course: Testing/studies: 04/29/21: PSG: ZKP=502 min, 81.4% efficiency, CLARISA 48.5min, REM latency [...] can't sleep at times with insane mood swings. Family hx bipolar. PLAN: pyschiatry referral, actigraphy to better characterize sleep/wake habits, labs per pt request. NOTE: any future Psg to have etco2 and tco2 to eval for hypoventilation which can contribute to fatigue. Note: habitual vaping and dx with COVID 2 days after last PSG Interval history : Here for follow up for actigraphy results Since last visit saw psychiatry which went good. Dx PTSD w/ bipolar tendencies. Started lamictal, [...] Circadian Rhythm delayed. Procedure: Actigraphy (CPT code 48995) Reason for study: circadian rhythm sleep disorder [...] sleep episodes. 1. Recorded (more content not included)...[facility]08-23-2023 History of Present illness Narrative* Susanna Barriga MD - 12/09/2022 11:32 AM EDT Images from the original note were not included. [facility] Follow up/ Established patient visit December 09, 2022 11:32 AM Esha is seen via a virtual Distance Health visit today with the patient's verbal consent. The visit is conducted synchronously in real-time. I have communicated my name and active licensure. The patient's identity and physical location were verified at the time of this visit. Either the patientor their legal outside sales representative has been informed of the risks and benefits of -- and alternatives to-- treatment through a remote evaluation and consents to proceed with the evaluation remotely. Date of last visit : 08/17/2022 Clinical Course (copied from last note and updated as needed): Initial presentation to sleep medicine: 04/07/21 Presenting complaints: excessive daytime sleepiness Initial impression: EDS with family history of narcolepsy (Dad, Aunt, ?grandma) Co-morbid conditions: anxiety, depression Clinical course: Testing/studies: 04/29/21: PSG: ZJQ=199 min, 81.4% efficiency, CLARISA 48.5min, REM latency 334 min, 0% supine, 4.3% REM,arousal index 16.4 -Snoring, Total AHI=0.4, RDI=4.6, 99.3% [...] No known lung disorder, neurologic or neuromuscular disorder.Of note, patient does vape and patient did [...] sleep log, psg with etco2 and tco2, mslt,UDS. 08/17/2022 Visit: seen by pulm now MIPS/MEPS concern for neuromusc cause so seen by neuro and nothingfound on exam or labs. Still reporting excessive daytime sleepiness (EDS) reported sleeping up to 16 ht at a time, but also reporting she think she is bipolar as sometimes she is too energetic and can't sleep at times with insane mood swings. Family hx bipolar. PLAN: pyschiatry referral, actigraphy to better characterize sleep/wake habits, labs per pt request. NOTE: any future Psg to have [id number] tco2 to eval for hypoventilation which can contribute to fatigue. Note: habitual vaping and dx with COVID 2 days after last PSG Interval history : Here for follow up for actigraphy results Since last visit saw psychiatry which went good. Dx PTSD w/ bipolar tendencies. Started lamictal,has been on it almost 1 month and [...] Circadian Rhythm delayed. Procedure: Actigraphy (CPT code 90036) Reason for study: circadian rhythm sleep disorder [...] or near accidents due to drowsy drivin [place] Sleepiness Scale 05/19/2021 08/16/2022 12/05/2022 Score 19 [...] population = 50. Five points is a clinicallymeaningful difference.) 05/20/2022 08/16/2022 11/13/2022 Physical T-Score 32.4 29.6 37.4 Mental T-Score 41.1 28.4 33.8 PMH, PSH, SH: dx with PTSD w/ bipolar tendencies - per pt SLEEP RELATED ROS General: fatigue and sleepiness Psych: PTSD ALLERGIES No Known Allergies CURRENT MEDICATIONS: lamoTRIgine (LAMICTAL) 25 mg tablet Take 1 tablet by mouth once daily. For 14 days then increase to2 tablets for 14 days venlafaxine ER (EFFEXOR [...] day , considerable variability in sleep duration dayto day. PLAN: Refer to behavioral sleep medicine [...] which included preparing to see the patient, [id number] patient care, completing clinical documentation, obtaining and/or reviewing separately obtained history, performing a medically appropriate examination, counseling and educating the pat ient/family/caregiver, and communicating results to the patient/family/caregiver. Susanna Barriga MD December 10, 2022. 5:40 PM documented in this encounterPromedica Fostoria [facility]08-21-2023 History of Present illness Narrative* AmarikylahRimma, PT - 12/07/2022 11:28 AM EDT Episode Visit Count: 1 Therapist That Will [...] of Care: created on 12/07/22 through 02/06/23 [place] in home exercise program. Patient will decrease pain rating by 2 points to meet minimal clinical important difference for numeric pain rating scale. Patient will demonstrate increase in core, lumbar and pelvic musculature strength to 4+ to 5/5 during manual muscle testing in order to improve function for home management tasks and prior functionaltasks. Patient will increase flexibility of hamstrings to 60-70 degrees to improve ability to maintain proper posture, improve mechanics, and decrease pain. Pt will demonstrate symmetrical alignment of pelvis. Pt will demonstrate improved pelvic stability to maintain normal pelvic alignment, improve function, and decrease pain. Perform stair negotiation;walking in the community;bending;sleeping;standing; without pain. Improve postural awareness. Normal gait. Reciprocal stair negotiation. Patient Goals: To find things to make it easier at home and to start an exercise program to help melose weight, but not hurt my back. Planned Interventions, Frequency, and Duration: Current Frequency: 2x/week Duration: 8 weeks Total Number of Visits Planned: 16 Planned Treatment Interventions: Therapeutic exercise (32750), Neuromuscular re- education (90270), Manual therapy (06720), Patient/Family/Caregiver Education PLAN FOR NEXT VISIT: Assess [...] to start an exercise program to help melose weight, but not hurt my back. Functional [...] 1204 Rimma Fuentes PT documented in this encounterPromedica Fostoria [facility]08-17-2023 History of Present illness Narrative* Charlie Mansfield PA-C - 12/03/2022 12:44 PM EDT [facility] Mansfield [facility] [address] [address] Dear Sofie Tyler MD, Esha Cordova Priscila is a pleasant 22 year old individual who comes in to the office on 12/03/2022 forfollow-up regarding the Lumbar spine. Has lower back [...] paralysis, loss of bowel/bladder control, saddle numbness. andSince last visit--patient indicates NEW presence of: loss of coordination, stumbling. Current Outpatient Medications Medication Sig Dispense Refill lamoTRIgine (LAMICTAL) 25 mg tablet Take 1 tablet by mouth once daily. For 14 days then increase to2 tablets for 14 days 42 tablet 0 [...] 115/68, pulse 105, height 154.9 cm (5' 1), weight 82.5 kg (181 lb 14.4 oz), [...] Current BMI is 34.4. She will follow-up hereon an as-needed basis--After therapy if symptoms remain or worsen. Time spent: 35 minutes today with this patient visit. This includes [id number] time, review of chart records regarding conservative care history, spine- pertinent imaging, and communication/care coordination with referring provider, problem-specific history-taking and counseling/education regarding treatment options. This document has been created with the use of voice recognition technology. It may contain inaccuracies: (e.g. misspellings, inaccurate syntax or word sense) that have escaped review. A letter of attendance at today's office visit was submitted through patient's [employer] interface. Tiara Licea MA documented in this encounterPromedica Fostoria [facility]07-31-2023 Miscellaneous Notes* Telephone Encounter - Selma Hoover Ma - 11/16/2022 8:14 AM EDT Pt notified that she needs to speak with Psych. Selma Hoover Ma documented in this encounterPromedica Fostoria [facility]06-03-2023 Procedure note* Castillo Cameron, PhD - 09/19/2022 9:08 PM EDTAssociated Order(s): ACTIGRAPHY TESTING Actigraphy Report Average Bedtime 2:02AM, [...] Circadian Rhythm delayed. Procedure: Actigraphy (CPT code 96592) Reason for study: circadian rhythm sleep disorder and excessive daytime sleepiness-no MSLT planned Length of study: This study was performed for: 2 weeks Dates of Actigraphy study: From 09/03/2022 To 09/16/2022 Technical quality of the recording: An Actigraphy GTX was used for this study. There were no apparent technical issues with the recording. All data were used in sleep scoring andanalysis Using the Wilbert Kripke algorithm, data was [...] age 8.1 hours daily (with a range of2.9 hrs to 12 hrs), reduced sleep efficiency, increased wake after sleep onset , frequent napping, and likely circadian rhythm sleep disorder delayed type. [place] : Castillo Cameron, PhD, [facility] Psychologist ([place] License P.[id number]) Behavioral Sleep Medicine Disclosure: There are limitations of actigraphy data. This test is not a measure of daytime sleepiness or insomnia. Findings may suggest the etiology of sleepiness due to an observed pattern or help in the understanding of patterns associated with conditions being evaluated documented in this encounterPromedica Fostoria [facility]05-17-2023 History of Present illness Narrative* Evie Mckeon - 09/02/2022 2:06 PM EDT ACTIGRAPHY DEVICE # [id number] Date shipped out 09/02/2022 [facility] MAIL OUT TRACKING NUMBER [id number] [employer] RETURN TRACKING NUMBER [id number] Boothe documented in this encounterPromedica Fostoria Community Hospital05-01-2023 NoteHNO ID: [id number] Author: Susanna Barriga MD Service: ? Author Type: Physician Type: Progress Notes Filed: 08/17/2022 3:40 PM Note Text: [facility] Follow up/ Established [...] anxiety, depression Clinical course: Testing/studies: 04/29/21: PSG: FYP=641 min, 81.4% efficiency, CLARISA 48.5min, REM latency [...] sleeps 8p til 4-5p the next day. 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 Pt [...] not have a vape Etoh - denies [place] Sleepiness Scale: 15 PATIENT-ENTERED QUESTIONNAIRE SLEEP SCORES [place] Sleepiness Scale 05/19/2021 08/16/2022 Score 19 (severe daytime sleepiness) 15 (present daytime sleepiness) PROMIS CAT Sleep Disturbance 02/16/2022 PROMIS Sleep Disturbance T-Score 63 (moderate) PROMIS Sleep Disturbance Percentile 10 % PHQ-9 06/02/2022 06/02/2022 08/16/2022 Score 9 9 11 PROMIS Global Health - (T-Scores - the mean of general population = 50. Five (more content not included)...[facility]02-17-2023 Instructions* Patient Instructions* Kourtney Okeefe APRN.CNM - 06/05/2022 1:54 PM EST Ibuprofen 600 mg PO every 6 hours as needed for pain documented in this encounterPromedica Fostoria [facility] Hospital02-17-2023 History of Present illness Narrative* Kourtney Okeefe APRN.CNM - 06/05/2022 1:32 PM EST Esha Francois is a 21 year old female who presents for follow up visit from [facility] ED on 05/19/22.Patient seen for lower right quadrant pain. CT [...] days. No concerns with cycles. LMP 05/26/22 Certified Phlebotomist History LMP: 12/17/2021 (Exact Date), Having periods Age at Menarche: Age at First : Age at Menopause: Certified Phlebotomist History Comments: Sexual Activity: Yes; No partner [...] capsule by mouth once daily. Take along khaw580 mg dose venlafaxine ER (EFFEXOR XR) 150 [...] consult to dermatology RTO- as needed Kourtney Plotts, TURBINE ASSEMBLER.CNM documented in this encounterPromedica Fostoria [facility] Hospital02-15-2023 Miscellaneous Notes* Telephone Encounter - Kelsie Laguerre LPN - 06/03/2022 10:02 AM EST Pt move her self to another 20 min slot. Called and LM that her appt was move from 11:40 to 11:20 to give the proper amount of time for appt. Kelsie Laguerre LPN * Telephone Encounter - Kelsie Laguerre LPN - 06/03/2022 9:19 AM EST TC to pt. LM to call office, ask for triage nurse to get results. Pt needs to be rescheduled for 40 min appt. Please assits. Kelsie Laguerre LPN documented in this encounterPromedica Fostoria [facility] Hospital02-14-2023 Miscellaneous Notes* Telephone Encounter - Bekah La LPN - 06/02/2022 4:36 PM EST Patient returned call and went over my chart message and patient said she had clicked one what everprovider she could get seen sooner. Patient said it was follow up to lab levels. Rescheduled her to06/03/2022 with Daniela Gaston NP. * Telephone Encounter - Selma Hoover Ma - 06/02/2022 10:27 AM EST Pt has had 4 no shows in the past 2 months and is currently under review for dismissal. Selma Hoover Ma * Telephone Encounter - Luly Moore LPN - 06/02/2022 9:58 AM EST Patient has appointment this day with Dr. Carlson and it says recheck levels. Patient has not been in for routine labs for 11 months. Will need to follow up with PCP or team for physical. Patient telephoned. Message left to call back regarding appointment this day. Luly Moore LPN documented in this encounterPromedica Fostoria [facility] Hospital12-16-2022 Hospital Discharge instructions Patient Education 04/03/2022 17:24:39 Abscess, Incision [...] may be told to remove it yourself. Youmay do this in the shower. Once the [...] Boil returns when you are at home [phone] The [employer]. [address] [place] [address], [place] [id number]. All rights reserved. This information is not intended as a substitute for professional medical care. Always follow yourhealthcare professional's instructions. Follow Up Care 04/03/2022 16:25:00 With:Go to emergency room if symptoms worsen Address:Unknown When:2-4 days With:SOFIE TYLER MD Address: [address] [place] [address]- When:2-4 days [facility] 12-16-2022 Note Discharge Instructions Thank you for allowing [place] to assist you with your healthcare needs. The following is importantdischarge information regarding your hospital visit. Diagnosis from [...] MD When Within 2-4 days Where: [address] [place] [address]- Allergies NKA Medications Please ask your primary doctor or pharmacist before taking any other medication not listed, including over the counter drugs, herbal medications, vitamins and or supplements as they may interact withyour home medications. What How Much When Instructions Last Dose Unchanged sulfamethoxazole- trimethoprim (Bactrim DS 800 mg-160 mg oral tablet) [...] may be told to remove it yourself. Youmay do this in the shower. Once the [...] Boil returns when you are at home [phone] [employer]. [address] [place] [address]. All rights reserved. This information is not intended as a substitute for professional medical care. Always follow yourhealthcare professional's instructions. Additional Information VACCINATE! IT SAVES LIVES! Members of the community who have not yet received the COVID-19 vaccine and would like to receive it can visit one of [facility] vaccine clinics. There are many vaccine clinic locations within the [facility]. For locations and available times, please visit www.[email or web address].org. It is important to note that some COVID mobile vaccine clinics are held outdoors and may be canceled in rainy orstormy conditions. To learn more about pediatric vaccinations (ages 5-11), we invite you to visit the [facility] webpage. https://www.[email or web address].org/pages/7280-Glldn-Blannlymhht-Ystopyniob-Rzwxy-Ybs stions.htmlTo learn more about the COVID-19 vaccine, we invite you to visit the [place] website for a list of frequently asked questions. https://[place].[facility]/assets/Ykxjyhkd-tjv-Msyxyqme/pwyek-Usrvzns-Gzjnxqodqj _Asked-Questions.pdf [facility]es[facility] Patient Portal Access Instructions: Stay connected with your healthcare team and access your personal medical information anytime with the [facility] Patient Portal. If you would like a full copy of your medical records please contact the [facility] Medical Records Department Wednesday through Wednesday between 8a.m. and 4:30p.m. Please follow the directions below to access the portal: 1.Access the email account you provided upon registration to the [facility].2.Look for an invitation email from [facility].3.Open the email and access the invitation link: Accept Invitation to [employer]4.Fill in the required fleming to create your account. Sign into www.[employer] with your username and password that you [...] you will allow to register on the [facility] Patient Portal for access to your information. You can also access the [facility] Patient Portal on the [employer]. Simply click on Health Records under [employer] [place] and then click on the [employer] logo. HOW TO SAFELY DISPOSE OF PRESCRIPTION MEDICATIONS Please use one of the following methods to safely dispose of your unused medications. 1.Use a drug disposal kit: the drug disposal pouch allows you to safely discard your old and unuseddrugs. Ask your nurse to give you one when you are discharged.2.Visit a local take-back location: Many local pharmacies and police departments have programs that collect old and unwanted prescriptiondrugs. Call your local pharmacy or go to http://[employer].DooBop/9C5Cm0p to find one close to you.3.Make use of household items: Use cat litter or old coffee grounds to dispose medications if other options arenot available. Mix your drugs with these household products, seal them in an airtight container andthrow it into the garbage. Call [facility]: [phone] to be sure your drugs can be [...] drowsiness, such as benzodiazepines, also known as benzos,including diazepam and alprazolam, muscle relaxants or sleep aids. Never sell or share prescriptionopioids. This is illegal. Store opioids in a [...] questions, I am aware that I should contactmy doctor. 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 This includes: oAll prescription medicines wDuvo-fth-faryhpi medicines that don t need a prescription oAny street drugs you may use oHerbs, vitamins, kelp, seaweed, cough syrups, and any other supplements What happens during abscess drainage? You will change into a hospital gown and lie on an X-ray table. You may lie on your back, front, orside, depending on the site of the abscess. [...] in place for several days. Follow any instructionsyou are given for caring for the catheter [...] or the tube moves or comes out 6624-6987 [employer]. [address] [place] [address], [place] [address]. All rights reserved. This information is not intended as a substitute for professional medical care. Always follow yourhealthcare professional's instructions. Follow Up Care 04/01/2022 16:13:26 With:Go to emergency room if symptoms worsen Address:Unknown When:2-4 days With:SOFIE TYLER MD Address: [address] [facility] [place] [address]- When:2-4 days [facility] 12-14-2022 Emergency department Discharge summary Discharge Instructions Thank you for allowing [place] to assist you with your healthcare needs. The following is importantdischarge information regarding your hospital visit. Diagnosis from [...] MD When Within 2-4 days Where: [address] [place] [place] [address]- Allergies NKA Medications Please ask your primary doctor or pharmacist before taking any other medication not listed, including over the counter drugs, herbal medications, vitamins and or supplements as they may interact withyour home medications. What How Much When Why [...] by mouth Three (3) times a day Rickie Schlatter disease Please take this list to [...] the test. This includes: oAll prescription medicines uCwxf-fhj-skanbws medicines that don t need a prescription oAny street drugs you may use oHerbs, vitamins, kelp, seaweed, cough syrups, and any other supplements What happens during abscess drainage? You will change into a hospital gown and lie on an X-ray table. You may lie on your back, front, orside, depending on the site of the abscess. [...] in place for several days. Follow any instructionsyou are given for caring for the catheter [...] or the tube moves or comes out 4550-7329 [employer]. [address] [place] [address], [place] [address]. All rights reserved. This information is not intended as a substitute for professional medical care. Always follow yourhealthcare professional's instructions. Additional Information VACCINATE! IT SAVES LIVES! Members of the community who have not yet received the COVID-19 vaccine and would like to receive it can visit one of [facility] vaccine clinics. There are many vaccine clinic locations within the [facility]. For locations and available times, please visit www.gettheshot.[email or web address].org. It is important to note that some COVID mobile vaccine clinics are held outdoors and may be canceled in rainy orstormy conditions. To learn more about pediatric vaccinations (ages 5-11), we invite you to visit the [facility] webpage. https://www.[facility].org/pages/1646-Zfcmy-Fxafuctglna-Dzlleuksku-Gwpou-Eoa stions.htmlTo learn more about the COVID-19 vaccine, we invite you to visit the [facility] website for a list of frequently asked questions. https://[email or web address]/assets/Sjqqanwo-byg-Gwpgekqe/avpwv-Tbujtzw-Nptfarczva _Asked-Questions.pdf [place] 7-bites[facility] Patient Portal Access Instructions: Stay connected with your healthcare team and access your personal medical information anytime with the [facility] OneChart Patient Portal. If you would like a full copy of your medical records please contact the [facility] Medical Records Department Wednesday through Wednesday between 8a.m. and 4:30p.m. Please follow the directions below to access the portal: 1.Access the email account you provided upon registration to the hospital.2.Look for an invitation email from [facility].3.Open the email and access the invitation link: Accept Invitation to [employer]4.Fill in the required fleming to create your account. Sign into www.[employer] with your username and password that you [...] you will allow to register on the [facility] Patient Portal for access to your information. You can also access the [facility] Patient Portal on the [employer]. Simply click on Health Records under [employer] [place] and then click on the [employer] logo. HOW TO SAFELY DISPOSE OF PRESCRIPTION MEDICATIONS Please use one of the following methods to safely dispose of your unused medications. 1.Use a drug disposal kit: the drug disposal pouch allows you to safely discard your old and unuseddrugs. Ask your nurse to give you one when you are discharged.2.Visit a local take-back location: Many local pharmacies and police departments have programs that collect old and unwanted prescriptiondrugs. Call your local pharmacy or go to http://[employer].DooBop/1Q5Yi4e to find one close to you.3.Make use of household items: Use cat litter or old coffee grounds to dispose medications if other options arenot available. Mix your drugs with these household products, seal them in an airtight container andthrow it into the garbage. Call [facility]: [phone] to be sure your drugs can be [...] drowsiness, such as benzodiazepines, also known as benzos,including diazepam and alprazolam, muscle relaxants or sleep aids. Never sell or share prescriptionopioids. This is illegal. Store opioids in a [...] questions, I am aware that I should contactmy doctor. 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 Signature: Date/Time: Relationship to Patient: Witness Name/Signature: Date/Time: [facility]12-06-2022 Miscellaneous Notes* Telephone Encounter - Courtney Hernesto, HIGH RAW SUGAR BOILER - 03/24/2022 12:39 PM EST Behavioral Health Social Work Progress Note Patient identified for [facility] from: PCP Reason for referral: [facility] Behavioral Health Resources: Psychology - talk therapy;Psychiatry med management [facility] encounter type: Telephone Encounter Attempts to Outreach: 1 attempt Referral made: Psychiatry - Internal;Psychiatry - External;Psychology - Internal;Psychology - External Psychiatry-Internal referral type: Medication Management Psychology-Internal referral type: Therapy Psychology-External referral type: Therapy Psychiatry-External referral type: Medication Management Reason for external referral: Wait times at [facility] too long Final Disposition: Unable to reach Patient Discharged?: No Patient reported that caregiver was able to meet their needs today?: N/A Phone call placed today that went to [employer]. Left my contact information and brief nature of call. Initial outreach also completed via [employer] sending list of in network providers with insurance. These include: [facility] (Telehealth available) [address] [place] [address] *counseling and psychiatry [facility] [address] [place], [place] [address] *counseling and psychiatry [facility] (Telehealth available) [address] [place] [address] *[facility] (Telehealth available) [address] [place] [address] *counseling and psychiatry [facility] (Telehealth available) [address] [facility] [address] *counseling and psychiatry [facility] (Telehealth available) [address] [place] [address] *counseling [facility] (Telehealth available) [address] [place] [address] *counseling [facility] (Telehealth available) [address] [place], [place] [phone] *counseling and psychiatry [address] [place], [place] [phone] *counseling and psychiatry ALDAIR Bautista March 24, 2022 documented in this encounterPromedica Fostoria [facility] Hospital12-06-2022 History of Present illness Narrative* Sofie Tyler MD - 03/24/2022 11:40 AM EST Chief Complaint Patient presents with: Mood HPI Esha Francois is a 21 year old female who presents here today to discuss possible mood disorder. Pt scheduled via [facility] to discuss possible mood disorder. Here today with her boyfriend, Ever, they've been together for the past two years. Pt last seen in this office 03/11/21 for routine medication follow up. Pt hx of Anxiety, Depressionand Sleep Disturbance. Pt on current regimen of Effexor XR 150 mg once daily. Feels her depression is stable at current time. 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 Has increased stress at home recently. Pt reports symptoms of mood swings due to some life changes over the past 6 months, but ongoing fora while per patient. Pt states that one [...] Past Histories independently gathered by the clinical office support assistant and the remaining scribed note accurately describes my personal service to the patient. Medical Decision Making: Problems: Moderate: 1+ chronic illnesses with change Risk: Moderate: Drug management Medical Decision Making Level: 4 - Moderate Sofie Tlyer MD The documentation for this note was completed by Selma Hoover Ma acting as scribe for Sofie Tyler MD. March 24, 2022 11:57 AM. Selma Hoover Ma documented in this encounterPromedica Fostoria [facility] Hospital11-04-2022 History of Present illness Narrative* Charlie Mansfield PA-C - 02/20/2022 10:48 AM EDT Images from the original note were not included. Charlie Mansfield PA-C [facility] [address] [place] [address] 02/20/2022 ASSESSMENT AND PLAN: Assessment : Encounter [...] referred to physical therapy for that but hasnot started just yet. She does not take [...] today with this patient visit. This includes qtxa-oa-zdkw time, review of chart records regarding conservative care history, spine- pertinent imaging, and communication/care coordination with referring provider, problem-specific history-taking and counseling/education regarding treatment options. cc: SELF Phone: N/A Fax: Results of consultation to be transmitted via electronic medical record for those providers who practice within [facility] or with access to [employer] via MD Connect, or via letter. ######################################################################## CHIEF COMPLAINT: Patient is here for the lower back pain. Pain started years ago, and getting worse. Pain stops in the right knee. Level of the pain is at 5/10. 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 NON-OPERATIVE CARE: Medication(s): She has tried the [...] Hematologic: (-) Prolonged Bleeding (+) Easy Bruising ################################################################################ ################################################# PHYSICAL EXAM: Blood pressure 104/67, pulse 91, height 154.9 cm (5' 1), weight 76.4 kg (168 lb 8 oz), [...] STUDIES: See discussion above documented in this encounterPromedica Fostoria Community Hospital11-04-2022 History of Present illness Narrative* Cristiane Galicia PA-C - 02/20/2022 9:59 AM EDT Cristiane Galicia PA-C Department of Orthopaedics Orthopaedics [address] [place], [place] [id number] Dept: [phone] February 20, 2022 SUBJECTIVE: CHIEF COMPLAINT: New [...] it is not providing much relief. She feelslike food knees do lock and catch. She [...] osseous abnormality identified. Left knee patella devan.. Coremaker Pipe: [facility] Transcribe Date/Time: Feb 20 2022 3:54P Dictated by : ONI GILLETTE MD This examination was interpreted and the report reviewed and electronically signed by: ONI GILLETTE MD on Feb 20 2022 3:56PM [...] appropriate patellofemoral protocol placed. Patient agreeable plan willfollow up in 8 weeks. FOLLOW UP INSTRUCTIONS: 8 weeks Cristiane Galicia PA-C documented in this encounterPromedica Fostoria Community Hospital11-04-2022 Miscellaneous Notes* Alannah Rollins RT(R) - 02/20/2022 9:10 AM EDT Radiology Service Progress Note PATIENT NAME: Esha Francois DATE OF SERVICE: February 20, 2022 TIME: 9:48 AM PATIENT IDENTITY VERIFICATION COMPLETED USING TWO (2) IDENTIFIERS: Name and Date of confirmedby patient verbally. FALL SCREENING: Has the patient had 2 falls in the last year or 1 fall with injury or currently using an Ambulatory Assistive Device (Walker, Cane, Wheelchair, Crutches, etc.)? No PATIENT GENDER DATA: Female. status: : No status: NO. PATIENT RELEVANT IMPLANT DATA REVIEWED: Not Applicable RADIOLOGY DEPARTMENT: General X-ray: Exam(s) Completed: Lower Extremity X- Ray(s): Knee, AP / Lat / Tunne / Merchant Bilateral PERIPHERAL IV DATA: Not applicable SIGNED BY: RT Chen(Vandana) February 20, 2022 9:48 AM documented in this encounterPromedica Fostoria Community Hospital11-04-2022 Progress note* Alannah Rollins RT(R) - 02/20/2022 9:10 AM EDT Radiology Service Progress Note PATIENT NAME: Esha Francois DATE OF SERVICE: February 20, 2022 TIME: 9:48 AM PATIENT IDENTITY VERIFICATION COMPLETED USING TWO (2) IDENTIFIERS: Name and Date of confirmedby patient verbally. FALL SCREENING: Has the patient had 2 falls in the last year or 1 fall with injury or currently using an Ambulatory Assistive Device (Walker, Cane, Wheelchair, Crutches, etc.)? No PATIENT GENDER DATA: Female. status: : No status: NO. PATIENT RELEVANT IMPLANT DATA REVIEWED: Not Applicable RADIOLOGY DEPARTMENT: General X-ray: Exam(s) Completed: Lower Extremity X- Ray(s): Knee, AP / Lat / Tunne / Merchant Bilateral PERIPHERAL IV DATA: Not applicable SIGNED BY: RT Chen(R) February 20, 2022 9:48 AM [facility]10[facility] Miscellaneous Notes* Telephone Encounter - Gerber Singh APRN.CNP - 01/19/2022 1:09 PM EDT The following approved medication requests have been transmitted electronically. Requested Prescriptions Pending Prescriptions Disp Refills venlafaxine ER (EFFEXOR XR) 150 mg 24 hr capsule [Pharmacy Med Name: VENLAFAXINE HCL ER 150 MG CAP]90 capsule 1 Sig: take 1 capsule by mouth once daily Gerber Singh APRN.CNP documented in this encounterPromed[facility]09-06-[facility]22 Miscellaneous Notes* Telephone Encounter - Jacquelyn Garcia RN - 12/23/2021 10:06 AM EDT Please file labs if in agreement. Patient seen 12/18 documented in this encounterPromedica Fost[facility]09-01-2022 History of Present illness Narrative* Tayler Castillo MD - 12/18/2021 2:43 PM EDT Esha Francois is a 21 year old [...] OB History No obstetric history on file. Certified Phlebotomist History LMP: 06/30/2021 (Exact Date), Having periods Age at Menarche: Age at First : Age at Menopause: Certified Phlebotomist History Comments: Sexual Activity: Yes; No partner [...] N/A Tayler Castillo MD documented in this encounterPromedica [facility]08-29-2022 History of Present illness Narrative* Yoli Levi LPN - 12/15/2021 2:57 PM EDT Pt comes in today she states to catch up on vaccines. Pt receives pneumonia vaccine today . Tolerates well. Does not want covid booster . Per FINISH FILER pt is not at risk for meningococcal vaccine is not attenting college , not living in a dorm . Pt states then does not want it. documented in this encounterPromedica [facility]06-03-2022 Miscellaneous Notes* Addendum Note - Liz Esparza MD - 09/19/2021 10:28 AM EDT Addended by: LIZ ESPARZA on: 09/19/2021 10:28 AM Modules accepted: Orders documented in this encounterPromedica Fost[facility]06-03-2022 History of Present illness Narrative* Liz Esparza MD - 09/19/2021 9:30 AM EDT HPI: This is Ms. Esha Francois a 20 year old female from who [facility] with a chief complaint [...] the time. She has some KOLB, no troublelying flat. No diplopia, ptosis. Today she reports relatively few symptoms. She has knee and back pain intermittently. 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 Only had some shortness of breath while climbing very tall stairs at a park. No orthopnea. No trouble eating, swallo wing. No significant muscle weakness. She vapes all [...] All systems negative other than those mentioned inHPI. Physical Exam: Vitals: BP 111/71 Pulse 72 Wt 72.6 kg (160 lb) LMP 06/30/2021 (Exact Date) SpO2 99% General appearance: no acute distress. Neurological Exam: MSE: Alert and oriented to person, place, and time. Speech is fluent without dysarthria or aphasia.Recall is intact to recent and remote events. [...] Function tests in . Thyroid, 2019:29:3:412-420. Ruy Blackwood, et al. 2017 Guidelines of the [place] Thyroid Association for the Diagnosis and Management of Thyroid Disease during and the . Thyroid, 2017:27:3:315-389. Reference ranges were not locally established for this patient's age group. The normal values are based on the following source: Oscar Maynard V. Reference Ranges for Adults and Children: Pre-analytical Considerations. [facility] Hemoglobin A1C Date Value Ref Range Status 07/23/2021 4.7 4.3 - 5.6 % Final Comment: [place] Diabetes [employer] guidelines indicate that patients with [...] Where positive and clinically warranted, follow-up using disease- specific testing is recommended. Low positive titers are [...] 5. Hypersomnia, as indicated by the elevated [place] sleepiness scale, is not otherwise explained by [...] on sleep study, which possibly occurred while shewas infected with COVID. Subsequent PFT testing demonstrated [...] (referral to neurology was initiated d/t high NF6ybagpj and low MIPs/MEPs) Her neurologic exam is [...] reviewed the test results, and indicated that theyare normal. I advised Ms. Francois of this. documented in this encounterPromedica [facility]04-11-2022 Miscellaneous Notes* Telephone Encounter - Gerber Singh APRN.CNP - 07/28/2021 1:35 PM EDT The following approved medication requests have been transmitted electronically. Pending Prescriptions Disp Refills VENLAFAXINE ER 150 MG CAPSULE,EXTENDED RELEASE 24 HR 90 capsule 1 Sig: Take 1 capsule by mouth once daily. WANDER: No Gerber Singh APRN.CNP * Telephone Encounter - Sharyn Garcia MA - 07/28/2021 1:31 PM EDT Patient has been identified by name and date of : Yes Pending Prescriptions Disp Refills VENLAFAXINE ER 150 MG CAPSULE,EXTENDED RELEASE 24 HR 90 capsule 1 Sig: Take 1 capsule by mouth once daily. WANDER: No RX INSTRUCTIONS: Patient aware RX will be sent to pharmacy. No need to notify patient. Sharyn Garcia MA Olivia: 07/2021 Nov: no appointment scheduled Last refill; 12/2020 - 90 capsule 1 refill * Telephone Encounter - Basilia Das - 07/28/2021 1:26 PM EDT Patient has been identified by name and date of : Yes Pending Prescriptions Disp Refills VENLAFAXINE ER 150 MG CAPSULE,EXTENDED RELEASE 24 HR 90 capsule 1 Sig: Take 1 capsule by mouth once daily. WANDER: No RX INSTRUCTIONS: Patient aware RX will be sent to pharmacy. No need to notify patient. Basilia Das documented in this encounterMartin [place] [id number] Miscellaneous Notes* Telephone Encounter - Daniela Gaston APRN.CNP - 07/25/2021 1:32 PM EDT Noted. Daniela Gaston APRN.CNP * Telephone Encounter - Debi Goff - 07/25/2021 1:00 PM EDT I called the pt with the phone number that the scheduling tree provided ([phone]). The pt stated that that phone number was not helpful previously, so I called the [facility] scheduling line([phone]) to ask if they could call and schedule the patient. Kourtney, the outpatient scheduler, stated she would call the patient and schedule. Thank you, Debi Goff * Telephone Encounter - Daniela Gaston APRN.CNP - 07/25/2021 11:43 AM EDT Can you please call the patient back and let her know that I replaced the order for pediatric endocrinology and and the comments requested that they schedule her without specific doctor. Please let me know if she has any questions. Thank you. Daniela Gaston APRN.CNP * Telephone Encounter - Ansley Welch RN - 07/24/2021 12:17 PM EDT Patient notified of results and provider's instructions. Patient verbalizes understanding. Patient states that she tried to schedule appointment with pediatric beater room helper last night andwas told that she cannot do this unless there is a diagnosis Ansley Welch, RN * Telephone Encounter - Kelsie Laguerre LPN - 07/24/2021 11:49 AM EDT TC to pt. LM to call office, ask for triage nurse to get results. Kelsie Laguerre LPN * Telephone Encounter - Daniela Gaston APRN.CNP - 07/24/2021 9:17 AM EDT Can you please call the patient and let her know that her A1c was normal. No signs of diabetes. As discussed at office visit I recommend scheduling an appointment with pediatric endocrinology with Dr. Guicho Marks. Please let me know if she has any questions. Thank you. Daniela Gaston APRN.CNP documented in this encounterPromedica [facility]04-06-2022 Instructions* Patient Instructions* Daniela Gaston APRN.CNP - 07/23/2021 4:23 PM EDT 1.) Get lab completed. 2.) Make an appointment for pediatric beater room helper. 3.) Keep follow up appointment with neurology. 4.) Follow up pending test results or sooner as needed. documented in this encounterPromedica [facility]04-06-2022 History of Present illness Narrative* Daniela Gaston APRN.CNP - 07/23/2021 4:00 PM EDT This is a 20 year old female who presents today with: Patient presents with: Acute Visit: diabetes HISTORY OF PRESENT ILLNESS: Esha Francois is a 20 year old female. Patient presents with: Acute Visit: diabetes Here in the office for concerns for diabetes. Refers that the other day got nauseous and hot. [place] better after drinking a slushy. Does not drink water at all, drinking tea most of the day. Is eatinga well balanced diet with 3 meals per [...] discussed and patient voices understanding. Daniela Gaston APRN.HAILEY This note was partially generated using [employer] voice recognition system. Note was reviewed for accuracy. There may be minor misspellings or grammar miscues with [employer] voice recognition. documented in this encounterPromedica [facility]03-30-2022 History of Present illness Narrative* Lew Chavis MD - 07/16/2021 8:16 PM EDT Thank you for requesting an Endocrinology E-Consult for your 20 year old female patient, Esha Valdez for evaluation/treatment of Lab abnormals. Your clinical [...] Lew Chavis MD, [place] documented in this encounterPromedica Fostoria [facility]03-30-2022 Instructions* Patient Instructions* Scott Mercado APRN.CNP, DNP - 07/16/2021 2:42 PM EDT Follow up with neuromuscular medicine in May E-consult placed for endocrinology for lab interpretation [...] again and maintaining your health. Scott Mercado APRN.CNP, DNP documented in this encounterPromedica Fost[facility]03-30-2022 History of Present illness Narrative* Scott Mercado APRN.CNP, DNP - 07/16/2021 2:00 PM EDT Chief Complaint Patient presents with: Recheck: discuss [...] low back pain. Previously told she has [place] deformities of her knees. This is caused [...] 2-dose series) Never done GC (GONORRHEA) SCREENING () Never done HEPATITIS C SCREENING Never done HIV SCREENING Never done CHLAMYDIA SCREENING () Never done INFLUENZA(1) Never done COVID-19 VACCINE(2 [...] 1.39)* * Growth percentiles are based on [facility] (Girls, 2-20 Years) data. Last 5 Encounter [...] DATE OF EXAM: Jun 27 2021 10:31AM MDX 5228 - XR LUMBAR 3V AP/LAT/L5-S1 / [...] Acid, Urine 0.3 - 9.2 umol/mmolCr 2.8 8-Iqv-Cuiknqi, Urine 0.4 - 3.1 umol/mmolCr 1.8 3-MethylCrotonylGlycine,Urine [...] Review Reviewed by Win Durham MD, Ph.D ([id number]) Creatinine, Ur Random (UCRR) 42.2 - 237.9 [...] 39 OH-dodecenoylcarnitine 0 - 3 nmol/L 3 2-GR-tsqfkhamncezmijqsuk 1 - 7 nmol/L 4 Tetradecanoylcarnitine 7 - 46 nmol/L 28 Tetradecenoylcarnitine 4 - 87 nmol/L 74 7-SE-hcuzevpvkikcwfdlsvlgxq 1 - 12 nmol/L 6 Tetradecadienoylcarnitine 4 - 42 nmol/L 42 4-WU-bxgrkyhplnpxvfilbzpspc 1 - 10 nmol/L 4 Hexadecanoylcarnitine 47 - 174 nmol/L 96 Hexadecenoylcarnitine 3 - 22 nmol/L 19 2-ME-afhlniexvfznnjzzpnewt 0 - 2 nmol/L 2 8-EF-rauehezkskhhqvuszvvrm 1 - 7 nmol/L 3 Stearoylcarnitine 19 - 65 nmol/L 26 Oleoylcarnitine 25 - 163 nmol/L 113 1-TX-vdbrgbvzoylqewl 0 - 2 nmol/L 3 (H) Linoleoylcarnitine 11 - 95 nmol/L 65 4-XH-Rraticcolwvvucipgu 0 - 1 nmol/L 2 (H) Succinylcarnitine 15 - 59 nmol/L 24 3-PA-ayyosfe/isobutyrylcarn 3 - 40 nmol/L 21 Glutarylcarnitine 16 - 126 nmol/L 55 OH-Isoval/9Sti-3-MA-Butyrlcarn 7 - 42 nmol/L 42 Malonylcarnitine 6 - 122 nmol/L 49 Comment (Acylcarnitines) Acylcarnitine Review (ACYLBI) Reviewed by Win Durham MD, Ph.D ([id number]) Taurine 54 - 210 umol/L 57 Aspartic [...] Plasma Reviewed by Win Durham MD, Ph.D ([id number]) Amino Acid Consultation, Plasma Taurine, Urine 380-1,850 [...] Acids Reviewed by Win Durham MD, Ph.D ([id number]) Amino Acid Consultation, Urine Protein, Total 6.3 [...] Antibody Negative Negative Anti-Sm <1.0 AI <0.2 CLINICAL ATHLETIC INSTRUCTOR Antibody QUAL Negative Negative Anti-CLINICAL ATHLETIC INSTRUCTOR <1.0 AI 0.2 SSA Antibody Qual Negative Negative Anti-SSA <1.0 AI <0.2 Anti-SSB <1.0 AI <0.2 SSB Antibody Qual Negative Negative CENTROMERE AB QUAL Negative Negative Centromere Ab <1.0 AI <0.2 Scleroderma Ab Qual Negative Negative Scl-70 Abs, EIA <1.0 AI <0.2 ALLEY 1 ANTIBODY QUAL Negative Negative Alley 1 Antibody <1.0 AI <0.2 Ribosomal CLINICAL ATHLETIC INSTRUCTOR Qualitative Negative Negative Ribosomal CLINICAL ATHLETIC INSTRUCTOR Ab <1.0 AI <0.2 Chromatin Ab Qual [...] to health. - E-CONSULT ENDOCRINOLOGY Scott Mercado APRN.CHEYENNE HART This note was completed with [employer] dictation software. Note was reviewed for accuracy. There may be minor misspellings or grammar miscues with [employer] Dictation. I spent a total of 21 minutes on the date of the service which included preparing to see the patient, oolw-vf-ktre patient care, completing clinical documentation, performing a medically appropriate examination, counseling and educating the patient/family/caregiver and ordering medications, tests, or procedures. [place] [id number] documented in this encounterPromedica Fostoria [facility]03-11-2022 NoteHNO ID: [id number] Author: POORNIMA Damon Service: Radiology Author Type: [...] BY: POORNIMA Damon June 27, 2021 10:32 [facility] + Plan note No data available for this section [facility] Evaluation note* Diagnosis Chronic bilateral low back pain without sciatica- Primary Abnormal laboratory test result Other abnormal clinical finding Overweight (BMI 25.0-29.9) Overweight documented in this encounter [facility] note* Diagnosis Abnormal laboratory test result- Primary Other abnormal clinical finding Screening for diabetes mellitus documented in this encounter [facility] note* Diagnosis 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 documented in this encounter [facility] note* Diagnosis Abnormal laboratory test result- Primary Other abnormal clinical finding Weakness Other malaise and fatigue Carbon dioxide retention Acidosis documented in this encounter [facility] note* Diagnosis Encounter for immunization- Primary Need for other specified prophylactic vaccination against single bacterial disease documented in this encounter [facility] note* Diagnosis Screen for sexually transmitted diseases- Primary Screening examination for venereal disease documented in this encounter [facility] note* Diagnosis Irregular menstrual cycle- Primary Screen for STD (sexually transmitted disease) Screening examination for venereal disease Dysmenorrhea [facility] noteNo assessment information availableWSelect [facility] Work Phone: Evaluation note* Diagnosis Somatic dysfunction of lumbar region- Primary Nonallopathic lesion of lumbar region, not elsewhere classified documented in this encounter [facility] note* Diagnosis Patellofemoral syndrome of both knees- Primary documented in this encounter [facility] note* Diagnosis Anxiety with depression- Primary Mood changes Unspecified episodic mood disorder documented in this encounter [facility] note* Diagnosis Ovarian cyst rupture- Primary Other and unspecified ovarian cyst Patient desires Unspecified procreative management Other acne documented in this encounter [facility] note* Diagnosis Circadian rhythm sleep disorder, delayed sleep phase type- Primary Hypersomnia Hypersomnia, unspecified documented in this encounter [facility] note* Diagnosis Leg length inequality- Primary Unequal leg length (acquired) Strain of lumbar region, subsequent encounter [facility]* Diagnosis Strain of lumbar region, subsequent encounter- Primary Leg length inequality Unequal leg length (acquired) documented in this encounter [facility] note* Diagnosis Circadian rhythm sleep disorder, delayed sleep phase type- Primary Disruptions of 24-hour sleep-wake cycle Disruptions of 24 hour sleep wake cycle, unspecified Excessive daytime sleepiness documented in this encounter [facility] note* Diagnosis Strain of lumbar region, subsequent encounter- Primary Leg length inequality Unequal leg length (acquired) [facility]* Diagnosis Strain of lumbar region, subsequent encounter- Primary Leg length inequality Unequal leg length (acquired) documented in this encounter [facility] note* Diagnosis Strain of lumbar region, subsequent encounter- Primary Leg length inequality Unequal leg length (acquired) [facility]* Diagnosis Missed period- Primary Irregular menstrual cycle documented in this encounter [facility] note* Diagnosis Sore throat- Primary Acute pharyngitis URI, acute Acute upper respiratory infections of unspecified site documented in this encounter [facility] note* Diagnosis Missed period- Primary Irregular menstrual cycle Secondary amenorrhea Absence of menstruation Irregular menstrual cycle Pelvic pain in female Unspecified symptom associated with female genital organs documented in this encounter [facility] note* Diagnosis Secondary amenorrhea- Primary Absence of menstruation Irregular menstrual cycle documented in this encounter [facility] note* Diagnosis Secondary amenorrhea Absence of menstruation Pelvic pain in female Unspecified symptom associated with female genital organs documented in this encounter [facility] note* Diagnosis Secondary amenorrhea Absence of menstruation Irregular menstrual cycle [facility]* Diagnosis Missed menses- Primary Absence of menstruation [facility]* Diagnosis Pain in both knees, unspecified chronicity documented in this encounter [facility] note* Diagnosis Primary oligomenorrhea- Primary Scanty or infrequent menstruation [facility]* Diagnosis Sore throat- Primary Acute pharyngitis [facility]* Diagnosis PCOS (polycystic ovarian syndrome)- Primary Polycystic ovaries Abnormal uterine bleeding (AUB) Class 2 obesity with body mass index (BMI) of 39.0 to 39.9 in adult, unspecified obesity type, unspecified whether serious comorbidity present documented in this encounter [facility] note* Diagnosis Excessive bleeding in premenopausal period- Primary Premenopausal menorrhagia documented [facility]* Diagnosis PCOS (polycystic ovarian syndrome)- Primary Polycystic ovaries Insulin resistance Dysmetabolic Syndrome X documented in this encounter [facility] note* Diagnosis Pre-conception counseling- Primary Other procreative management counseling and advice PCOS (polycystic ovarian syndrome) Polycystic ovaries Tobacco dependence Tobacco use disorder Cannabis dependence, uncomplicated (HCC) Cannabis dependence, unspecified Anxiety with depression Class 2 obesity with body mass index (BMI) of 37.0 to 37.9 in adult, unspecified obesity type, unspecified whether serious comorbidity present [facility]* Diagnosis Abdominal pain, unspecified abdominal location- Primary documented in this encounter [facility] note* Diagnosis with uncertain dates, antepartum (HCC)- Primary state, incidental 7 weeks gestation of (HCC) state, incidental Anxiety Anxiety state, unspecified PTSD (post-traumatic stress disorder) Posttraumatic stress disorder Encounter for supervision of high risk in first trimester, antepartum (HCC) Screening for cervical cancer Screening for malignant neoplasm of the cervix Screening for human papillomavirus (HPV) Special screening examination for human papillomavirus (HPV) SOTO (generalized anxiety disorder) Generalized anxiety disorder Obesity in (HCC) Obesity complicating , childbirth, or the puerperium, unspecified as to episode of care or not applicable Severe obesity due to excess calories affecting in first trimester (HCC) documented in this encounter [facility] note* Diagnosis 7 weeks gestation of (HCC)- Primary state, incidental Subchorionic hematoma in first trimester, single or unspecified fetus (HCC) documented in this encounter [facility] note* Diagnosis Encounter for supervision of high risk in first trimester, antepartum (HCC)- Primary Subchorionic hematoma in first trimester, single or unspecified fetus (HCC) 11 weeks gestation of (HCC) state, incidental Other insomnia Obesity in (HCC) Obesity complicating , childbirth, or the puerperium, unspecified as to episode of care or not applicable PTSD (post-traumatic stress disorder) Posttraumatic stress disorder SOTO (generalized anxiety disorder) Generalized anxiety disorder documented in this encounter [facility] note* Diagnosis Encounter for screening for malformation using ultrasound ([facility])- Primary 12 weeks gestation of (HCC) state, incidental documented in this encounter [facility] note* Diagnosis 19 weeks gestation of ([facility])- Primary state, incidental Obesity in (HCC) Obesity complicating , childbirth, or the puerperium, unspecified as to episode of care or not applicable Encounter for supervision of high risk in first trimester, antepartum ([facility]) PTSD (post-traumatic stress disorder) Posttraumatic stress disorder SOTO (generalized anxiety disorder) Generalized anxiety disorder [facility] Additional Instructions Your work-up today revealed no clinically significant findings. Follow-up with your family doctor to discuss further testing if symptoms persist and return to the ER should you have any further concerns.[facility] Work Phone: Hospital Discharge instructions Additional Instructions Zofran or your home nausea medications as needed for nausea. Motrin and Tylenol for pain. Follow-up if not improving.[facility] Work Phone: Reason for referral (narrative)* Diagnostic Procedure Only (Routine) - Authorized Specialty Diagnoses / Procedures Referred By Kaylyn de luna Referred To Contact US IMAGING Diagnoses Secondary amenorrhea Pelvic pain in female Procedures US FEMALE PELVIS TRANSVAG US TRANSVAGINAL Kourtney Okeefe APRN.CNM [address] [place] [address] [place] [address] Referral ID Status Reason Start Date Expiration Date Visits Requested Visits Authorized [id number] Authorized Auto-Generat ed Referral 05/20/2023 06/18/2024 1 1 [facility] for referral (narrative)* Diagnostic Procedure Only (Routine) - Closed Specialty Diagnoses / Procedures Referred By Contac t Referred To Contact US IMAGING Diagnoses Secondary amenorrhea Pelvic pain in female Procedures US FEMALE PELVIS TRANSVAG US TRANSVAGINAL Kourtney Okeefe APRN.CNM [address] [place] [address] [place] [address] Referral ID Status Reason Start Date Expiration Date V isits Requested Visits Authorized [id number] Closed Auto-Generate d Referral 05/20/2023 06/18/2024 1 1 [facility] for referral (narrative)* Diagnostic Procedure Only (Routine) - Closed Specialty Diagnoses / Procedures Referred By Contac t Referred To Contact XR IMAGING Diagnoses Pain in both knees, unspecified chronicity Procedures XR KNEE GENERAL 4V AP BOTH/PA BOTH/LAT/MERC BILATERAL RADIOLOGIC EXAM KNEE COMPLETE 4/MORE VIEWS Cristiane Smith PA-C [address] [place] [address] [place] [address] Referral ID Status Reason Start Date Expiration Date V isits Requested Visits Authorized [id number] Closed Auto-Generate d Referral 02/05/2022 03/07/2023 1 1 [facility] for referral (narrative)No reason for referral information availableWSelect Medical [facility] Work Phone: [facility] Narrative* Diagnostic Procedure Only (Routine) - Closed Specialty Diagnoses / Procedures Referred By Contac t Referred To Contact XR IMAGING Diagnoses Pain in both knees, unspecified chronicity Procedures XR KNEE GENERAL 4V AP BOTH/PA BOTH/LAT/MERC BILATERAL RADIOLOGIC EXAM KNEE COMPLETE 4/MORE VIEWS Cristiane Smith PA-C [address] [place] [address] [place] [address] Referral ID Status Reason Start Date Expiration Date V isits Requested Visits Authorized [id number] Closed Auto-Generate d Referral 02/05/2022 03/07/2023 1 1 [facility] Diagnostic Procedure Only (Routine) - Authorized Specialty Diagnoses / Procedures Referred By Contac t Referred To Contact [facility] Diagnoses 7 weeks gestation of (HCC) Procedures OBSTETRIC ULTRASOUND WHI US PREG UTERUS AFTER 1ST TRIMEST GESTATION Kourtney Okeefe, GEORGI.CN [address] [place] [address] Phone: tel: fax: [place] [phone] Referral ID Status Reason Start Date Expiration Date Visits Requested Visits Authorized [id number] Authorized Auto-Generat ed Referral 09/28/2024 04/18/2025 20 20 [facility] Reason for Referral Specialty Diagnoses / Procedures Referred By Contac t Referred To Contact [facility] Diagnoses Chronic bilateral low back pain without sciatica Procedures CONSULT TO PHYSICAL THERAPY PHYSICAL THERAPY EVALUATION HIGH COMPLEX 45 MINS Scott Mercado, TURBINE ASSEMBLER.COMMUNICATION ANALYST, DNP [address] [place] [address] [facility] [address] [address] Referral ID Status Reason Start Date Expiration Date Visits Requested Visits Authorized [id number] Pending Review Auto-Generat ed Referral 07/23/2021 07/16/2022 1 1 Specialty Diagnoses / Procedures Referred By Contac t Referred To Contact Pediatric Endocrinology Diagnoses Abnormal laboratory test result Procedures CONSULT TO PEDS ENDOCRINOLOGY OFFICE/OUTPATIENT [facility] 60-74 MINUTES Daniela Gaston APRN.COMMUNICATION ANALYST [address] [place] [address] Referral ID Status Reason Start Date Expiration Date Visits Requested Visits Authorized [id number] Authorized PCP Requested Referral 07/23/2021 07/23/2022 1 1 Specialty Diagnoses / Procedures Referred By Contac t Referred To Contact Pediatric Endocrinology Diagnoses Amino acid deficiency (HCC) Procedures CONSULT TO PEDS ENDOCRINOLOGY OFFICE/OUTPATIENT [facility] MDM 60-74 MINUTES Daniela Gaston APRN.COMMUNICATION ANALYST [address] [place] [address] Referral ID Status Reason Start Date Expiration Date Visits Requested Visits Authorized [id number] Authorized PCP Requested Referral 07/25/2021 07/25/2022 1 1 Specialty Diagnoses / Procedures Referred By Contac t Referred To Contact [facility] Diagnoses Patellofemoral syndrome of both knees Procedures CONSULT TO PHYSICAL THERAPY PHYSICAL THERAPY EVALUATION HIGH COMPLEX 45 MINS Cristiane Galicia PA-C [address] [place] [address] [facility] [address] [place] [address] Referral ID Status Reason Start Date Expiration Date Visits Requested Visits Authorized [id number] Pending Review Auto-Generat ed Referral 02/20/2022 02/20/2023 1 1 Specialty Diagnoses / Procedures Referred By Kaylyn de luna Referred To Contact Physical Therapy / PHYSICAL THERAPY Diagnoses Leg length inequality Strain of lumbar region, subsequent encounter Procedures CONSULT TO PHYSICAL THERAPY PHYSICAL THERAPY EVALUATION HIGH COMPLEX 45 MINS THERAPEUTIC EXERCISES RE, EA 15 MIN. Charlie Mansfield PA-C [address] [place] [address] Pt [facility] [address] [place] [address] Referral ID Status Reason Start Date Expiration Date V isits Requested Visits Authorized [id number] Authorized 04/19/2022 04/18/2023 30 30 Chief Complaint and Reason for Visit Chief Complaint back and knee pain Chief Complaint back and knee pain abd pain Chief Complaint DIZZINESS, NAUSEA Chief Complaint ABD PAIN Chief Complaint Admit Date ABD PAIN August 26, 2024 1:18p m Advance Directives No Advanced Directives Records Found Advance Directive Response Recorded Date/ Time Living Will No January 28 11:12pm Power of Civil Preparedness Training Officer No January 28, 2022 11:12pm Advance Directive Response Recorded Date/ Time Living Will No May 19 6:17am Power of Civil Preparedness Training Officer No May 19, 2022 6:17am Advance Directive Response Recorded Date/ Time Living Will No January 12, 2023 10:16pm Power of Civil Preparedness Training Officer No December 10:16pm Advance Directive Response Recorded Date/ Time Living Will No June 15, 024 3:17pm Power of Civil Preparedness Training Officer No June 15, 2023 3:17pm Advance Directive Response Recorded Date/ Time Do you have a Healthcare Power of Civil Preparedness Training Officer? No August 26, 2024 1:42pm Summary Purpose Family History No Family History Records FoundNo Family History Records FoundNo Family History Records FoundNo Family History Records FoundNo Family History Records Found Health Concerns Infection Onset Date [...] prosecute any alcohol or drug abuse patient.[facility] the event this information is protected by the Federal Confidentiality of Alcohol and Drug Abuse Patient Records regulations: The Federal rules restrict any use of the information to criminally investigate or prosecute any alcohol or drug abuse patient.[facility]In the event this information is protected by the Federal Confidentiality of Alcohol and Drug Abuse Patient Records regulations: The Federal rules restrict any use of the information to criminally investigate or prosecute any alcohol or drug abuse patient.[facility]In the event this information is protected by the Federal Confidentiality of Alcohol and Drug Abuse Patient Records regulations: The Federal rules restrict any use of the information to criminally investigate or prosecute any alcohol or drug abuse patient.[facility]In the event this information is protected by the Federal Confidentiality of Alcohol and Drug Abuse Patient Records regulations: The Federal rules restrict any use of the information to criminally investigate or prosecute any alcohol or drug abuse patient.[facility] the event this information is protected by the Federal Confidentiality of Alcohol and Drug Abuse Patient Records regulations: The Federal rules restrict any use of the information to criminally investigate or prosecute any alcohol or drug abuse patient.[facility]In the event this information is protected by the Federal Confidentiality of Alcohol and Drug Abuse Patient Records regulations: The Federal rules restrict any use of the information to criminally investigate or prosecute any alcohol or drug abuse patient.[facility] HospitalIn the event this information is protected by the Federal Confidentiality of Alcohol and Drug Abuse Patient Records regulations: The Federal rules restrict any use of the information to criminally investigate or prosecute any alcohol or drug abuse patient.[facility] HospitalIn the event this information is protected by the Federal Confidentiality of Alcohol and Drug Abuse Patient Records regulations: The Federal rules restrict any use of the information to criminally investigate or prosecute any alcohol or drug abuse patient.[facility] HospitalIn the event this information is protected by the Federal Confidentiality of Alcohol and Drug Abuse Patient Records regulations: The Federal rules restrict any use of the information to criminally investigate or prosecute any alcohol or drug abuse patient.[facility] HospitalIn the event this information is protected by the Federal Confidentiality of Alcohol and Drug Abuse Patient Records regulations: The Federal rules restrict any use of the information to criminally investigate or prosecute any alcohol or drug abuse patient.[facility] HospitalIn the event this information is protected by the Federal Confidentiality of Alcohol and Drug Abuse Patient Records regulations: The Federal rules restrict any use of the information to criminally investigate or prosecute any alcohol or drug abuse patient.[facility] HospitalIn the event this information is protected by the Federal Confidentiality of Alcohol and Drug Abuse Patient Records regulations: The Federal rules restrict any use of the information to criminally investigate or prosecute any alcohol or drug abuse patient.[facility] HospitalIn the event this information is protected by the Federal Confidentiality of Alcohol and Drug Abuse Patient Records regulations: The Federal rules restrict any use of the information to criminally investigate or prosecute any alcohol or drug abuse patient.[facility] HospitalIn the event this information is protected by the Federal Confidentiality of Alcohol and Drug Abuse Patient Records regulations: The Federal rules restrict any use of the information to criminally investigate or prosecute any alcohol or drug abuse patient.[facility] HospitalIn the event this information is protected by the Federal Confidentiality of Alcohol and Drug Abuse Patient Records regulations: The Federal rules restrict any use of the information to criminally investigate or prosecute any alcohol or drug abuse patient.[facility] HospitalIn the event this information is protected by the Federal Confidentiality of Alcohol and Drug Abuse Patient Records regulations: The Federal rules restrict any use of the information to criminally investigate or prosecute any alcohol or drug abuse patient.[facility] HospitalIn the event this information is protected by the Federal Confidentiality of Alcohol and Drug Abuse Patient Records regulations: The Federal rules restrict any use of the information to criminally investigate or prosecute any alcohol or drug abuse patient.[facility] HospitalIn the event this information is protected by the Federal Confidentiality of Alcohol and Drug Abuse Patient Records regulations: The Federal rules restrict any use of the information to criminally investigate or prosecute any alcohol or drug abuse patient.[facility] HospitalIn the event this information is protected by the Federal Confidentiality of Alcohol and Drug Abuse Patient Records regulations: The Federal rules restrict any use of the information to criminally investigate or prosecute any alcohol or drug abuse patient.[facility] HospitalIn the event this information is protected by the Federal Confidentiality of Alcohol and Drug Abuse Patient Records regulations: The Federal rules restrict any use of the information to criminally investigate or prosecute any alcohol or drug abuse patient.[facility] HospitalIn the event this information is protected by the Federal Confidentiality of Alcohol and Drug Abuse Patient Records regulations: The Federal rules restrict any use of the information to criminally investigate or prosecute any alcohol or drug abuse patient.[facility] HospitalIn the event this information is protected by the Federal Confidentiality of Alcohol and Drug Abuse Patient Records regulations: The Federal rules restrict any use of the information to criminally investigate or prosecute any alcohol or drug abuse patient.[facility] HospitalIn the event this information is protected by the Federal Confidentiality of Alcohol and Drug Abuse Patient Records regulations: The Federal rules restrict any use of the information to criminally investigate or prosecute any alcohol or drug abuse patient.[facility] HospitalIn the event this information is protected by the Federal Confidentiality of Alcohol and Drug Abuse Patient Records regulations: The Federal rules restrict any use of the information to criminally investigate or prosecute any alcohol or drug abuse patient.[facility] HospitalIn the event this information is protected by the Federal Confidentiality of Alcohol and Drug Abuse Patient Records regulations: The Federal rules restrict any use of the information to criminally investigate or prosecute any alcohol or drug abuse patient.[facility] HospitalIn the event this information is protected by the Federal Confidentiality of Alcohol and Drug Abuse Patient Records regulations: The Federal rules restrict any use of the information to criminally investigate or prosecute any alcohol or drug abuse patient.[facility] HospitalIn the event this information is protected by the Federal Confidentiality of Alcohol and Drug Abuse Patient Records regulations: The Federal rules restrict any use of the information to criminally investigate or prosecute any alcohol or drug abuse patient.[facility] HospitalIn the event this information is protected by the Federal Confidentiality of Alcohol and Drug Abuse Patient Records regulations: The Federal rules restrict any use of the information to criminally investigate or prosecute any alcohol or drug abuse patient.[facility] HospitalIn the event this information is protected by the Federal Confidentiality of Alcohol and Drug Abuse Patient Records regulations: The Federal rules restrict any use of the information to criminally investigate or prosecute any alcohol or drug abuse patient.[facility] HospitalIn the event this information is protected by the Federal Confidentiality of Alcohol and Drug Abuse Patient Records regulations: The Federal rules restrict any use of the information to criminally investigate or prosecute any alcohol or drug abuse patient.[facility] HospitalIn the event this information is protected by the Federal Confidentiality of Alcohol and Drug Abuse Patient Records regulations: The Federal rules restrict any use of the information to criminally investigate or prosecute any alcohol or drug abuse patient.[facility] HospitalIn the event this information is protected by the Federal Confidentiality of Alcohol and Drug Abuse Patient Records regulations: The Federal rules restrict any use of the information to criminally investigate or prosecute any alcohol or drug abuse patient.[facility] HospitalIn the event this information is protected by the Federal Confidentiality of Alcohol and Drug Abuse Patient Records regulations: The Federal rules restrict any use of the information to criminally investigate or prosecute any alcohol or drug abuse patient.[facility] HospitalIn the event this information is protected by the Federal Confidentiality of Alcohol and Drug Abuse Patient Records regulations: The Federal rules restrict any use of the information to criminally investigate or prosecute any alcohol or drug abuse patient.[facility] HospitalIn the event this information is protected by the Federal Confidentiality of Alcohol and Drug Abuse Patient Records regulations: The Federal rules restrict any use of the information to criminally investigate or prosecute any alcohol or drug abuse patient.[facility] HospitalIn the event this information is protected by the Federal Confidentiality of Alcohol and Drug Abuse Patient Records regulations: The Federal rules restrict any use of the information to criminally investigate or prosecute any alcohol or drug abuse patient.[facility] HospitalIn the event this information is protected by the Federal Confidentiality of Alcohol and Drug Abuse Patient Records regulations: The Federal rules restrict any use of the information to criminally investigate or prosecute any alcohol or drug abuse patient.[facility] HospitalIn the event this information is protected by the Federal Confidentiality of Alcohol and Drug Abuse Patient Records regulations: The Federal rules restrict any use of the information to criminally investigate or prosecute any alcohol or drug abuse patient.[facility] HospitalIn the event this information is protected by the Federal Confidentiality of Alcohol and Drug Abuse Patient Records regulations: The Federal rules restrict any use of the information to criminally investigate or prosecute any alcohol or drug abuse patient.[facility] HospitalIn the event this information is protected by the Federal Confidentiality of Alcohol and Drug Abuse Patient Records regulations: The Federal rules restrict any use of the information to criminally investigate or prosecute any alcohol or drug abuse patient.[facility] HospitalIn the event this information is protected by the Federal Confidentiality of Alcohol and Drug Abuse Patient Records regulations: The Federal rules restrict any use of the information to criminally investigate or prosecute any alcohol or drug abuse patient.[facility] HospitalIn the event this information is protected by the Federal Confidentiality of Alcohol and Drug Abuse Patient Records regulations: The Federal rules restrict any use of the information to criminally investigate or prosecute any alcohol or drug abuse patient.[facility] HospitalIn the event this information is protected by the Federal Confidentiality of Alcohol and Drug Abuse Patient Records regulations: The Federal rules restrict any use of the information to criminally investigate or prosecute any alcohol or drug abuse patient.[facility] HospitalIn the event this information is protected by the Federal Confidentiality of Alcohol and Drug Abuse Patient Records regulations: The Federal rules restrict any use of the information to criminally investigate or prosecute any alcohol or drug abuse patient.[facility] HospitalIn the event this information is protected by the Federal Confidentiality of Alcohol and Drug Abuse Patient Records regulations: The Federal rules restrict any use of the information to criminally investigate or prosecute any alcohol or drug abuse patient.[facility] HospitalIn the event this information is protected by the Federal Confidentiality of Alcohol and Drug Abuse Patient Records regulations: The Federal rules restrict any use of the information to criminally investigate or prosecute any alcohol or drug abuse patient.[facility] HospitalIn the event this information is protected by the Federal Confidentiality of Alcohol and Drug Abuse Patient Records regulations: The Federal rules restrict any use of the information to criminally investigate or prosecute any alcohol or drug abuse patient.[facility] HospitalIn the event this information is protected by the Federal Confidentiality of Alcohol and Drug Abuse Patient Records regulations: The Federal rules restrict any use of the information to criminally investigate or prosecute any alcohol or drug abuse patient.[facility] HospitalIn the event this information is protected by the Federal Confidentiality of Alcohol and Drug Abuse Patient Records regulations: The Federal rules restrict any use of the information to criminally investigate or prosecute any alcohol or drug abuse patient.[facility] HospitalIn the event this information is protected by the Federal Confidentiality of Alcohol and Drug Abuse Patient Records regulations: The Federal rules restrict any use of the information to criminally investigate or prosecute any alcohol or drug abuse patient.[facility] HospitalIn the event this information is protected by the Federal Confidentiality of Alcohol and Drug Abuse Patient Records regulations: The Federal rules restrict any use of the information to criminally investigate or prosecute any alcohol or drug abuse patient.[facility] HospitalIn the event this information is protected by the Federal Confidentiality of Alcohol and Drug Abuse Patient Records regulations: The Federal rules restrict any use of the information to criminally investigate or prosecute any alcohol or drug abuse patient.[facility] HospitalIn the event this information is protected by the Federal Confidentiality of Alcohol and Drug Abuse Patient Records regulations: The Federal rules restrict any use of the information to criminally investigate or prosecute any alcohol or drug abuse patient.[facility] HospitalIn the event this information is protected by the Federal Confidentiality of Alcohol and Drug Abuse Patient Records regulations: The Federal rules restrict any use of the information to criminally investigate or prosecute any alcohol or drug abuse patient.[facility] HospitalIn the event this information is protected by the Federal Confidentiality of Alcohol and Drug Abuse Patient Records regulations: The Federal rules restrict any use of the information to criminally investigate or prosecute any alcohol or drug abuse patient.[facility] HospitalIn the event this information is protected by the Federal Confidentiality of Alcohol and Drug Abuse Patient Records regulations: The Federal rules restrict any use of the information to criminally investigate or prosecute any alcohol or drug abuse patient.[facility] HospitalIn the event this information is protected by the Federal Confidentiality of Alcohol and Drug Abuse Patient Records regulations: The Federal rules restrict any use of the information to criminally investigate or prosecute any alcohol or drug abuse patient.[facility] HospitalIn the event this information is protected by the Federal Confidentiality of Alcohol and Drug Abuse Patient Records regulations: The Federal rules restrict any use of the information to criminally investigate or prosecute any alcohol or drug abuse patient.[facility] HospitalIn the event this information is protected by the Federal Confidentiality of Alcohol and Drug Abuse Patient Records regulations: The Federal rules restrict any use of the information to criminally investigate or prosecute any alcohol or drug abuse patient.[facility] HospitalIn the event this information is protected by the Federal Confidentiality of Alcohol and Drug Abuse Patient Records regulations: The Federal rules restrict any use of the information to criminally investigate or prosecute any alcohol or drug abuse patient.[facility] HospitalIn the event this information is protected by the Federal Confidentiality of Alcohol and Drug Abuse Patient Records regulations: The Federal rules restrict any use of the information to criminally investigate or prosecute any alcohol or drug abuse patient.[facility] HospitalIn the event this information is protected by the Federal Confidentiality of Alcohol and Drug Abuse Patient Records regulations: The Federal rules restrict any use of the information to criminally investigate or prosecute any alcohol or drug abuse patient.[facility] HospitalIn the event this information is protected by the Federal Confidentiality of Alcohol and Drug Abuse Patient Records regulations: The Federal rules restrict any use of the information to criminally investigate or prosecute any alcohol or drug abuse patient.[facility] HospitalIn the event this information is protected by the Federal Confidentiality of Alcohol and Drug Abuse Patient Records regulations: The Federal rules restrict any use of the information to criminally investigate or prosecute any alcohol or drug abuse patient.[facility] HospitalIn the event this information is protected by the Federal Confidentiality of Alcohol and Drug Abuse Patient Records regulations: The Federal rules restrict any use of the information to criminally investigate or prosecute any alcohol or drug abuse patient.[facility] the event this information is protected by the Federal Confidentiality of Alcohol and Drug Abuse Patient Records regulations: The Federal rules restrict any use of the information to criminally investigate or prosecute any alcohol or drug abuse patient.[facility] Reason for Visit (unrecogniz ed section and content) Reason Comments Physical Therapy Specialty Diagnoses / Procedures Referred By Contac t Referred To Contact Physical Therapy / PHYSICAL THERAPY Diagnoses Leg length inequality Strain of lumbar region, subsequent encounter Procedures CONSULT TO PHYSICAL THERAPY PHYSICAL THERAPY EVALUATION HIGH COMPLEX 45 MINS THERAPEUTIC EXERCISES RE, EA 15 MIN. Charlie Mansfield PA-C [address] [place] [address] [facility] [address] [place] [address] Referral ID Status Reason Start Date Expiration Date V isits Requested Visits Authorized [id number] Authorized 04/19/2022 04/18/2023 30 30 Reason Comments Recheck discuss labs Reason Comments Acute Visit diabetes Reason Comments Results Orders Reason Onset Date Comments Refill Request 07/28/2021 Reason Comments Consult Specialty Diagnoses / Procedures Referred By Contac t Referred To Contact Neurology Diagnoses Weakness Carbon dioxide retention Procedures CONSULT TO NEUROLOGY OFFICE/OUTPATIENT NEW HIGH MDM 60-74 MINUTES Gael Monique MD [address] [place] [address] Referral ID Status Reason Start Date Expiration Date V isits Requested Visits Authorized [id number] Closed PCP Requested Referral 06/27/2021 06/27/2022 1 [...] US Specialty Diagnoses / Procedures Referred By Contac t Referred To Contact US IMAGING Diagnoses Secondary amenorrhea Pelvic pain in female Procedures US FEMALE PELVIS TRANSVAG US TRANSVAGINAL Kourtney Okeefe APRN.CNM [address] [place] [address] [place] [address] Referral ID Status Reason Start Date Expiration Date V isits Requested Visits Authorized [id number] Closed Auto-Generate d Referral 05/20/2023 06/18/2024 1 1 Reason Comments Patient Question Medication Reason Comments Discussion Infertility and pcos Reason Comments Sore Throat nasal congestion, dr heath and cough x today Reason Comments Menstrual Problem Reason Comments Medication Follow-up Reason Comments Discussion Family planning Reason Comments Initial OB Visit Reason Comments PRAF Reason Onset Date Comments Care 10/25/2024 Reason Comments US Specialty Diagnoses / Procedures Referred By Contac t Referred To Contact [facility] Diagnoses with uncertain dates, antepartum (HCC) Procedures OBSTETRIC ULTRASOUND WHI US PREG UTERUS AFTER 1ST TRIMEST GESTATION Kourtney Okeefe APRN.CNM [address] [place] [address] Phone: tel: fax: [facility] [place] [address] Referral ID Status Reason Start Date Expiration Date Visits Requested Visits Authorized [id number] Authorized Auto-Generat ed Referral 10/25/2024 04/18/2025 20 20 Reason Onset Date Comments Care 12/20/2024 Care Teams (unrecognized sec tion and content) Computer Network And Systems Engineer Relationship Specialty Start Date End Date Sofie Tyler MD [address] [place], [place] [address] [phone] PCP - General Family Practice 07/10/17 Computer Network And Systems Engineer Relationship Specialty Start Date End Date Sofie Tyler MD [address] [place] [phone] PCP - General Family Practice 07/10/17 Computer Network And Systems Engineer Relationship Specialty Start Date End Date Sofie Tyler MD [address] [place] [phone] PCP - General Family Practice 07/10/17 Computer Network And Systems Engineer Relationship Specialty Start Date End Date Sofie Tyler MD [address] [place] [id number] PCP - General Family Practice 07/10/17 Computer Network And Systems Engineer Relationship Specialty Start Date End Date Sofie Tyler MD [address] [place] [id number] PCP - General Family Practice 07/10/17 Computer Network And Systems Engineer Relationship Specialty Start Date End Date Sofie Tyler MD [address] [place] [phone] PCP - General Family Practice 07/10/17 Computer Network And Systems Engineer Relationship Specialty Start Date End Date Sofie Tyler MD [address] [place] [phone] PCP - General Family Practice 07/10/17 Computer Network And Systems Engineer Relationship Specialty Start Date End Date Sofie Tyler MD [address] [facility] [place] [address] PCP - General Family Practice 07/10/17 Computer Network And Systems Engineer Relationship Specialty Start Date End Date Sofie Tyler MD [address] [facility] [place] [address] PCP - General Family Medicine 07/10/17 Computer Network And Systems Engineer Relationship Specialty Start Date End Date Sofie Tyler MD [address] [facility] [place] [address] PCP - General Family Medicine 07/10/17 Computer Network And Systems Engineer Relationship Specialty Start Date End Date Sofie Tyler MD [facility] [place] [address] PCP - General Family Medicine 07/10/17 Computer Network And Systems Engineer Relationship Specialty Start Date End Date Sofie Tyler MD [address] [facility] [place] [address] PCP - General Family Medicine 07/10/17 Computer Network And Systems Engineer Relationship Specialty Start Date End Date Sofie Tyler MD [address] [facility] [place] [address] PCP - General Family Medicine 07/10/17 Computer Network And Systems Engineer Relationship Specialty Start Date End Date Sofie Tyler MD [address] [facility] [place] [address] PCP - General Family Medicine 07/10/17 Computer Network And Systems Engineer Relationship Specialty Start Date End Date Sofie Tyler MD [address] [facility] [place] [address] PCP - General Family Medicine 07/10/17 Computer Network And Systems Engineer Relationship Specialty Start Date End Date Sofie Tyler MD [address] [facility] [place] [address] PCP - General Family Medicine 07/10/17 Team Status: Active Member Role Status Dates No Primary Care Physician Family Provider Active Dr. Sofie Tyler MD Primary Care Provider Active Team Status: Inactive Member Role Status Dates Dr. Sofie Tyler MD Primary Care Provider Active Dr. Reece Akers DO Attending Provider, Emergency Pr ovider Active Team Status: Inactive Member Role Status Dates Dr. Sofie Tyler MD Primary Care Provider Active Dr. Wenceslao Cline MD Emergency Provider Active Computer Network And Systems Engineer Relationship Specialty Start Date End Date Sofie Tyler MD [address] [facility] [place] [address] PCP - General Family Medicine 07/10/17 Computer Network And Systems Engineer Relationship Specialty Start Date End Date Sofie Tyler MD [address] [facility] [place] [address] PCP - General Family Medicine 07/10/17 Computer Network And Systems Engineer Relationship Specialty Start Date End Date Sofie Tyler MD [address] [facility] [place] [address] PCP - General Family Medicine 07/10/17 Computer Network And Systems Engineer Relationship Specialty Start Date End Date Sofie Tyler MD [address] [facility] [place] [address] PCP - General Family Medicine 07/10/17 Computer Network And Systems Engineer Relationship Specialty Start Date End Date Sofie Tyler MD [address] [facility] [place] [address] PCP - General Family Medicine 07/10/17 Computer Network And Systems Engineer Relationship Specialty Start Date End Date Sofie Tyler MD [address] [facility] [place] [address] PCP - General Family Medicine 07/10/17 Computer Network And Systems Engineer Relationship Specialty Start Date End Date Sofie Tyler MD [address] [place], [place] [id number] PCP - General Family Medicine 07/10/17 Computer Network And Systems Engineer Relationship Specialty Start Date End Date Sofie Tyler MD [address] [place], [place] [address] PCP - General Family Medicine 07/10/17 Computer Network And Systems Engineer Relationship Specialty Start Date End Date Sofie Tyler MD [address] [place], [place] [id number] PCP - General Family Medicine 07/10/17 Team Status: Active Member Role Status Dates No Primary Care Physician Family Provider Active No Primary Care Physician Primary Care Provider Active Team Status: Inactive Member Role Status Dates Dr. Reece Akers DO Emergency Provider Active No Primary Care Physician Primary Care Provider Active Computer Network And Systems Engineer Relationship Specialty Start Date End Date Sofie Tyler MD [address] [place], [place] [address] PCP - General Family Medicine 07/10/17 Team Status: Inactive Member Role Status Dates No Primary Care Physician Primary Care Provider Active Dr. Allen Lopes MD Emergency Provider Active Computer Network And Systems Engineer Relationship Specialty Start Date End Date Sofie Tyler MD [address] [place], [place] [id number] PCP - General Family Medicine 07/10/17 03/23/23 Team Status: Active Member Role Status Dates No Primary Care Physician Primary Care Provider Active Team Status: Inactive Member Role Status Dates No Primary Care Physician Primary Care Provider Active Start: August 26, 2024 End: August 26, 2024 Dr. Bruce Law MD Emergency Provider Active Start: August 26, 2024 End: August 26, 2024 Goals (unrecognized section and content) Goals may be documented in a n alternate section No data available for this section No data available for this sectionGoals may be documented in an alternate sectionGoals may be documented in an alternate sectionGoals may be documented in an alternate sectionGoals may be documented in an alternate section INFORMATION SOURCE (unrecogn ized section and content) DATE CREATED AUTHOR 03/25/2022 [facility] DATE CREATED AUTHOR AUTHOR'S ORGANIZ ATION 04/12/2022 [facility] ([place]) DATE CREATED AUTHOR AUTHOR'S ORGANIZ ATION 12/11/2022 [facility] DATE CREATED AUTHOR AUTHOR'S ORGANIZ ATION 09/01/2024 [facility] DATE CREATED AUTHOR AUTHOR'S ORGANIZ ATION 12/22/2024 [facility] Care Team (unrecognized sect ion and content) Care Team Personnel Name: SOFIE TYLER MD Member Role: Primary Care Physician Address: Address: [address] [place] [address]- Name: FRANK Weaver Position: ED RN Member Role: ED RN Name: MISTI REYNA DO Position: Resident Member Role: ED Physician Address: Address: [address] [place] [address] ED Resident [address] Care Team Related Persons Name: LUDIVINA FRANCOIS Address: Home [address] Care Team Personnel Name: SOFIE TYLER MD Member Role: Primary Care Physician Address: Address: [address] [place] [address] Name: FRANK Meraz Position: RN Member Role: ED RN Name: GEM CAMEJO DO Position: ED Physician Member Role: Attending Physician Address: Address: [address] [place] [address] [address] Name: MISTI REYNA DO Position: Resident Member Role: ED Physician Address: Address: [address] [place] [address] ED Resident [address] Care Team Related Persons Name: LUDIVINA FRANCOIS Address: Home [address] FOR RECORDS PERTAINING TO PATIENTS WHO ARE [...] BE BASED ON THE PRIMARY CLINICAL RECORDS. [facility] anywayanyday [facility]. provides no warranty or guarantee of the accuracy or completeness of information in this document.
--- NOTE | 2024-12-23 23:06 | EX.ED.DYSGE1 ---
HPI History of Present Illness Chief Complaint: Abd Pain Informant: patient and spouse/S.O. Narrative Narrative: Patient is a 24-year-old female who is a G1, P0 roughly 19 weeks . She has a past medical history of anxiety and depression as well as PCOS. She states she was having sexual intercourse this evening and during experienced sudden onset of sharp pain in the pelvic region. She states it only lasted a few seconds and resolved and she reports there has been no associated bleeding or discharge. However she was concerned that this pain could be related to problems with her and therefore comes in for evaluation [facility] Medical History (Updated 12/24/24 @ 03:[address] Reece Akers, DO) Depression Anxiety PCOS (polycystic ovarian syndrome) Home Medications ?Medication ?Instructions ?Recorded ?Last Taken ?Type venlafaxine 150 mg 150 mg PO DAILY 06/09/21 Unknown History capsule,extended release 24 hr (Effexor XR) dicyclomine 10 mg capsule 20 mg (2 x 10 mg) PO TIDAC #20 05/19/22 Unknown Rx CAPSULES ondansetron 4 mg disintegrating 4 mg PO Q8H PRN PRN Nausea #10 tabs 05/19/22 Unknown Rx tablet lamotrigine 200 mg tablet 200 mg PO DAILY 06/15/23 Unknown History Allergy/AdvReac Type Severity Reaction Status Date / Time No Known Allergies Allergy Verified 12/23/24 22:28 Family History no significant family his Social History Smoking Status: Current every day smoker tobacco type: e-cigarettes ROS ROS ED Constitutional Constitutional ED: Denies chills or fever(s) ENT ENT ED: Denies sore throat Cardiovascular Cardiovascular: Denies chest pain Respiratory/Chest Respiratory/Chest: Denies cough or dyspnea Gastrointestinal Gastrointestinal: Denies abdominal pain, diarrhea, nausea or vomiting Genitourinary Genitourinary ED: Reports other Details: Positive pelvic pain Negative vaginal bleeding or discharge ; Denies dysuria or hematuria Musculoskeletal Musculoskeletal: Denies back pain Integumentary Denies rash Neurologic Neurologic: Denies headache(s) Hematologic/Lymphatic Hematologic/Lymphatic: Denies easy bleeding or easy bruising EXAM Physical Exam Const Vital Signs: 12/23/24 22:28 12/23/24 23:14 Temperature 98.8 F 98.6 F Temperature Source Oral Pulse Rate 88 85 Respiratory Rate 16 16 Blood Pressure 126/75 H 125/76 H Blood Pressure Mean 92 92 Pulse Ox 100 100 Oxygen Delivery Method Room Air Positive well nourished and well developed General Appearance ED: well developed; Negative for pallor HEENT HEENT Narrative: Normocephalic atraumatic Eyes PERRL and EOMs intact bilaterally General Eye ED: Negative for scleral icterus Neck supple Resp normal respiratory effort and clear to auscultation bilaterally Cardio regular rate and regular rhythm GI non-tender and non-distended GI Narrative: Abdomen is gravid with fundus consistent with reported gestational age Otherwise no pain with palpation no voluntary guarding or rigidity or pulsatile mass Auscultation: normoactive bowel sounds Palpation: soft Narrative: Patient deferred Back/Spine no CVA tenderness Extremity normal to inspection Neuro oriented x3, CN's II-XII intact bilaterally and no sensory deficits noted Sensorium / Orientation: alert Motor Exam: strength 5/5 throughout Psych mental status grossly normal Skin no rashes or lesions noted and no wounds General Skin Exam: Negative for jaundice or pallor MDM MDM MDM Narrative Medical decision making narrative: Patient arrived to the ER with stable vitals. She reported sudden onset of sharp pelvic pain during sexual intercourse that resolved within a few minutes. She denies any bleeding or discharge. I have low concern for placental abruption or vaginal laceration or vaginal hematoma as patient denies any abdominal discomfort at this time or vaginal bleeding or swelling. I did elect to perform a bedside abdominal ultrasound of the patient. This showed a single IUP within the uterus with normal activity and a heart rate of approximate 150 bpm. Therefore this time as patient denies persistent pain vitals are stable and ultrasound confirms a live IUP there is no need for further intervention and she is otherwise safe for discharge. History & Record Review Discussion w/independent historian: Patient and Significant other Discharge Plan Triage Chief Complaint: Abd Pain ED Provider: Reece Akers Dx/Rx/DC Orders Clinical Impression: Abdominal pain during , PCOS (polycystic ovarian syndrome), Anxiety and depression Instructions: ED Abdominal Pain, Early Prescriptions: No Action venlafaxine [Effexor XR] 150 mg capsule,extended release 24hr 150 mg PO DAILY Patient Comments: take 1 capsule by mouth once daily ondansetron 4 mg tablet,disintegrating 4 mg PO Q8H PRN PRN (Reason: Nausea) Qty: 10 0RF dicyclomine 10 mg capsule 20 mg PO TIDAC Qty: 20 0RF lamotrigine 200 mg tablet 200 mg PO DAILY Patient Comments: take 1 tablet by mouth once daily Primary Care Provider: Care Physician,No Primary Referrals: Care Physician,No Primary [Primary Care Provider] - Activity Restrictions/Additional Instructions: Please follow-up with your CHEMICAL RECOVERY OPERATOR for repeat evaluation. If you develop vaginal bleeding or discharge or repeat pain or have any further concerns please return for repeat evaluation Print Language: Citizen Of [place] Disposition Disposition: Home, Self Care Discharge Date/Time: 12/23/24 23:15
[2024-12-23 23:14] VITALS: BP 125/76; PULSE 85; RESP 16; TEMP 37; O2SAT 100
== END 2024-12-23 23:15 | disposition home or self-care (01) ==
PROVIDERS: Emergency Provider Emergency Medicine; Visit Provider Emergency Medicine
DX: O26.892 Other specified pregnancy related conditions, second trimester (principal); R10.2 Pelvic and perineal pain; O99.342 Other mental disorders complicating pregnancy, second trimester; F41.9 Anxiety disorder, unspecified; E28.2 Polycystic ovarian syndrome; F32.A Depression, unspecified; O99.282 Endocrine, nutritional and metabolic diseases complicating pregnancy, second trimester; O99.332 Smoking (tobacco) complicating pregnancy, second trimester; F17.290 Nicotine dependence, other tobacco product, uncomplicated; Z3A.19 19 weeks gestation of pregnancy; Z79.899 Other long term (current) drug therapy
CPT/HCPCS: 99282

== ENCOUNTER 2025-01-29 22:55 | Outpatient (CLI) | payer MEDICAID, SELFPAY ==
[2025-01-29 23:04] VITALS: BMI 37.0
[2025-01-29 23:12] VITALS: PULSE 99; O2SAT 99
[2025-01-29 23:16] VITALS: RESP 16; TEMP 36.7
[2025-01-29 23:17] VITALS: BP 121/69; PULSE 95
--- NOTE | 2025-02-02 08:21 | OB.TRI.NOTE ---
HPI - General General Date of Service: 01/29/25 HPI Narrative EMILY FRANCOIS, is a 24 F @ 24.6 weeks- c/o upper abomdinal pain that lasted for short time- unsure if it was gas or BH contraction. pt reported to nursing no pain at time of arrival on unit. No N/V. PFSH PFSH Medical History (Updated 02/02/25 @ 08:[address] Rhiannon Khan MD) Depression Anxiety PCOS (polycystic ovarian syndrome) Home Medications Medication Instructions Recorded Last Taken Type venlafaxine 150 mg 150 mg PO DAILY 06/09/21 01/29/25 History capsule,extended release 24 hr (Effexor XR) dicyclomine 10 mg capsule 20 mg (2 x 10 mg) PO TIDAC #20 05/19/22 01/29/25 Rx CAPSULES lamotrigine 200 mg tablet 200 mg PO DAILY 06/15/23 01/29/25 History Allergy/AdvReac Type Severity Reaction Status Date / Time No Known Allergies Allergy Verified 01/29/25 23:22 Social History Smoking Status: Current every day smoker tobacco type: e-cigarettes Physical Exam Narrative FHR 150s, no ctx on monitor. NO NST performed. Assessment & Plan (1) Abdominal pain affecting : (2) 24 weeks gestation of : PLAN: Plan @ 24.6 weeks- resolved abdominal pain 1) DC home- well being established- resolution of abdominal pain
== END 2025-01-29 23:35 | disposition home or self-care (01) ==
LOC: WPOUT 23:03 → WP 23:03
PROVIDERS: Visit Provider Obstetrics & Gynecology
DX: O99.891 Other specified diseases and conditions complicating pregnancy (principal); O99.342 Other mental disorders complicating pregnancy, second trimester; O99.332 Smoking (tobacco) complicating pregnancy, second trimester; F32.A Depression, unspecified; F41.9 Anxiety disorder, unspecified; F17.290 Nicotine dependence, other tobacco product, uncomplicated; R10.10 Upper abdominal pain, unspecified; Z3A.24 24 weeks gestation of pregnancy; Z79.899 Other long term (current) drug therapy
CPT/HCPCS: 59050; 99221; G0378